=== PATIENT | male | born 1945 ===

== ENCOUNTER → 2019-02-03 | Outpatient (CLI) | payer OTHER ==
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
== END | disposition home or self-care (01) ==
LOC: RADCTMAIN 11:41
PROVIDERS: ATTEND Psychiatry & Neurology Vascular Neurology
DX: M50.321 Other cervical disc degeneration at C4-C5 level (principal); M46.92 Unspecified inflammatory spondylopathy, cervical region; M48.02 Spinal stenosis, cervical region; M51.26 Other intervertebral disc displacement, lumbar region; M48.061 Spinal stenosis, lumbar region without neurogenic claudication; M43.16 Spondylolisthesis, lumbar region
CPT/HCPCS: 70551; 72125; 72131

== ENCOUNTER 2019-03-22 15:01 | Emergency (ER) | payer OTHER ==
[2019-03-22] MEDS ORDERED: MECLIZINE 12.5 MG TAB PO STA (15:47)
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
[2019-03-22 16:17] LABS: Basophils % (A) 0 %; Eosinophils # (A) 0.2 k/uL (0-0.7); Eosinophils % (A) 2 %; HCT 45.8 % (39.0-53.0); HGB 14.5 gm/dL (13.0-17.5); Lymphocytes # (A) 1.4 k/uL (1.0-4.8); Lymphocytes % (A) 20 %; MCH 27.2 pg (25.0-35.0); MCHC 31.6 g/dL (31.0-37.0); MCV 86.2 fL (80.0-100.0); Mean Platelet Volume 8.2; Monocytes # (A) 0.5 k/uL (0-1.0); Monocytes % (A) 7 %; Neutrophils # (A) 4.8 k/uL (1.3-7.7); Neutrophils % (A) 68 %; Platelet Count 207 k/uL (150-450); RBC 5.31 m/uL (4.30-5.90); RDW 14.3 % (11.5-15.5); WBC 7.1 k/uL (3.8-10.6)
[2019-03-22 16:33] LABS: Albumin 4.1 g/dL (3.5-5.0); Calcium 9.6 mg/dL (8.4-10.2); INR 0.9 (<1.2); Partial Thromboplastin Time 24.8 sec (22.0-30.0); Potassium 4.4 mmol/L (3.5-5.1); Prothrombin Time 10.1 sec (9.0-12.0); Total Bilirubin 0.6 mg/dL (0.2-1.3); Total Protein 6.6 g/dL (6.3-8.2)
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
--- NOTE | 2019-03-22 19:12 | XR ---
EXAMINATION TYPE: XR chest 2V DATE OF EXAM: 03/22/2019 COMPARISON: NONE HISTORY: Altered mental status TECHNIQUE: Frontal and lateral views of the chest are obtained. FINDINGS: There is no focal air space opacity, pleural effusion, or pneumothorax seen. The cardiac silhouette size is within normal limits. The osseous structures are intact. IMPRESSION: No acute cardiopulmonary process.
[2019-03-22 19:15] VITALS: PULSE 70; TEMP 98.3
[2019-03-22 20:25] VITALS: BP 149/80; RESP 16
== END 2019-03-22 20:28 | disposition home or self-care (01) ==
LOC: EC 15:01
DX: R42 Dizziness and giddiness (principal); R41.840 Attention and concentration deficit; E11.9 Type 2 diabetes mellitus without complications; Z79.84 Long term (current) use of oral hypoglycemic drugs
CPT/HCPCS: 36415; 70450; 71046; 80053; 84484; 85025; 85610; 85730; 93005; 99285

== ENCOUNTER → 2019-07-09 | Outpatient (CLI) | payer OTHER ==
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
== END | disposition home or self-care (01) ==
LOC: RADMRIMAIN 16:03
PROVIDERS: ATTEND Orthopaedic Surgery Orthopaedic Surgery of the Spine
DX: M48.02 Spinal stenosis, cervical region (principal); M50.21 Other cervical disc displacement, high cervical region; M43.13 Spondylolisthesis, cervicothoracic region; M47.812 Spondylosis without myelopathy or radiculopathy, cervical region; M46.92 Unspecified inflammatory spondylopathy, cervical region; M48.061 Spinal stenosis, lumbar region without neurogenic claudication; M48.07 Spinal stenosis, lumbosacral region; M51.26 Other intervertebral disc displacement, lumbar region; M51.27 Other intervertebral disc displacement, lumbosacral region; M46.96 Unspecified inflammatory spondylopathy, lumbar region; Z98.890 Other specified postprocedural states
CPT/HCPCS: 72141; 72148

== ENCOUNTER → 2019-11-06 | Outpatient (CLI) | payer OTHER ==
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
== END | disposition home or self-care (01) ==
LOC: RADCTMAIN 12:43
PROVIDERS: ATTEND Psychiatry & Neurology Vascular Neurology
DX: S13.4XXA Sprain of ligaments of cervical spine, initial encounter (principal); M50.30 Other cervical disc degeneration, unspecified cervical region; G44.311 Acute post-traumatic headache, intractable; V89.2XXA Person injured in unspecified motor-vehicle accident, traffic, initial encounter; Z98.890 Other specified postprocedural states
CPT/HCPCS: 72125

== ENCOUNTER 2019-12-04 03:21 | Emergency (ER) | payer OTHER ==
[2019-12-04] MEDS ORDERED: SODIUM CHLORIDE 0.9% 1,000 ML IV STA (03:26)
[2019-12-04 03:38] LABS: Glucose,Whole Blood 198 mg/dL (75-99)
--- NOTE | 2019-12-04 03:39 | ED ---
Neuro HPI - General Stated Complaint: Poss Stroke Time Seen by Provider: 12/04/19 03:26 Source: patient, family Mode of arrival: wheelchair Limitations: altered mental status, physical limitation - History of Present Illness Is the patient presenting with stroke symptoms?: Yes Last Known Well Date: 12/04/19 Last Known Well Time: 00:30 Onset/Timin -: hour(s) Initial Comments: Rick is a 74-year-old male with a history of hypertension diabetes and history of a traumatic brain injury who presents to the ER today for evaluation of possible acute stroke. reports that he had a traumatic brain injury last year and was told that he may of had an occipital stroke which resulted in vertigo and some coordination issues however he underwent physical therapy and is doing quite well. reports that she began to fall asleep around 12:30 and he was in his usual state of health but was unable to sleep. She woke up because he was fidgety around 2:30 in the morning and asked him if he would like a warm glass of milk however when he attempted to respond his speech made no sense and was very slurred. reports she then woke up turn the lights on and noticed that the right side of his face seemed to be droopy and his speech was very altered at which time she decided to bring him to the emergency department for further evaluation. - Related Data Home Medications: Home Medications Medication Instructions Recorded Confirmed Ascorbic Acid [Vitamin C] 500 mg PO DAILY 03/22/19 03/22/19 Cholecalciferol [Vitamin D3 (25 1,000 unit PO DAILY 03/22/19 03/22/19 Mcg = 1000 Iu)] Lysine 500 mg PO DAILY 03/22/19 03/22/19 Multivitamins, Thera [Multivitamin 1 tab PO DAILY 03/22/19 03/22/19 (formulary)] Oil Of Oregano 1 tab PO DAILY 03/22/19 03/22/19 [place] Extract 1 tab PO DAILY 03/22/19 03/22/19 [place] 3-6-9 1 cap PO DAILY 03/22/19 03/22/19 [place] 500 mg PO DAILY 03/22/19 03/22/19 Vitamin A(Unkown) 1 cap PO DAILY 03/22/19 03/22/19 Vitamin B Complex 1 cap PO DAILY 03/22/19 03/22/19 Vitamin E(Unknown) 1 cap PO DAILY 03/22/19 03/22/19 glipiZIDE [Glucotrol] See Protocol PO AC-BID 03/22/19 03/22/19 Allergies/Adverse Reactions: Allergies Allergy/AdvReac Type Severity Reaction Status Date / Time No Known Allergies Allergy Verified 03/22/19 16:23 Review of Systems ROS Statement: Those systems with pertinent positive or pertinent negative responses have been documented in the HPI. ROS Other: All systems not noted in ROS Statement are negative. General Exam - General Exam Comments Initial Comments: Physical Exam GENERAL: Elderly male HENT: Normocephalic, Atraumatic. EYES: PERRL, EOMI PULMONARY: Unlabored respirations. CARDIOVASCULAR: RRR ABDOMEN: Soft and nontender with normal bowel sounds. SKIN: Skin is clear with no lesions or rashes and otherwise unremarkable. : Deferred NEUROLOGIC: Awake, alert, able to state name Right sided facial droop Slurred speech, possible aphasia no receptive aphasia as the patient is able to understand commands MUSCULOSKELETAL: Right lower extremity weakness PSYCHIATRIC: Appropriate situational anxiety Limitations: altered mental status, physical limitation Stroke MDM - Lab Data Result diagrams: 12/04/19 03:40 12/04/19 03:40 Lab Results 12/04/19 12/04/19 12/04/19 Range/Units 03:36 03:40 03:40 WBC 5.7 (3.8-10.6) k/uL RBC 5.09 (4.30-5.90) m/uL Hgb 13.9 (13.0-17.5) gm/dL Hct 43.2 (39.0-53.0) % MCV 84.8 (80.0-100.0) fL MCH 27.4 (25.0-35.0) pg MCHC 32.3 (31.0-37.0) g/dL RDW 13.4 (11.5-15.5) % Plt Count 156 (150-450) k/uL Neutrophils % 60 % Lymphocytes % 24 % Monocytes % 7 % Eosinophils % 4 % Basophils % 1 % Neutrophils # 3.4 (1.3-7.7) k/uL Lymphocytes # 1.4 (1.0-4.8) k/uL Monocytes # 0.4 (0-1.0) k/uL Eosinophils # 0.2 (0-0.7) k/uL Basophils # 0.1 (0-0.2) k/uL PT (9.0-12.0) sec INR (<1.2) APTT (22.0-30.0) sec Sodium 137 (137-145) mmol/L Potassium 3.7 (3.5-5.1) mmol/L Chloride 102 (98-107) mmol/L Carbon Dioxide 26 (22-30) mmol/L Anion Gap 9 mmol/L BUN 24 H (9-20) mg/dL Creatinine 0.89 (0.66-1.25) mg/dL Est GFR (CKD-EPI)AfAm >90 (>60 ml/min/1.73 sqM) Est GFR (CKD-EPI)NonAf 84 (>60 ml/min/1.73 sqM) Glucose 204 H (74-99) mg/dL POC Glucose (mg/dL) 198 H (75-99) mg/dL POC Glu [employer] Layla Delgado Calcium 8.9 (8.4-10.2) mg/dL Total Bilirubin 0.6 (0.2-1.3) mg/dL AST 21 (17-59) U/L ALT 14 (4-49) U/L Alkaline Phosphatase 132 H (38-126) U/L Troponin I (0.000-0.034) ng/mL Total Protein 6.4 (6.3-8.2) g/dL Albumin 3.8 (3.5-5.0) g/dL 12/04/19 12/04/19 Range/Units 03:40 03:40 WBC (3.8-10.6) k/uL RBC (4.30-5.90) m/uL Hgb (13.0-17.5) gm/dL Hct (39.0-53.0) % MCV (80.0-100.0) fL MCH (25.0-35.0) pg MCHC (31.0-37.0) g/dL RDW (11.5-15.5) % Plt Count (150-450) k/uL Neutrophils % % Lymphocytes % % Monocytes % % Eosinophils % % Basophils % % Neutrophils # (1.3-7.7) k/uL Lymphocytes # (1.0-4.8) k/uL Monocytes # (0-1.0) k/uL Eosinophils # (0-0.7) k/uL Basophils # (0-0.2) k/uL PT 10.0 (9.0-12.0) sec INR 1.0 (<1.2) APTT 24.4 (22.0-30.0) sec Sodium (137-145) mmol/L Potassium (3.5-5.1) mmol/L Chloride (98-107) mmol/L Carbon Dioxide (22-30) mmol/L Anion Gap mmol/L BUN (9-20) mg/dL Creatinine (0.66-1.25) mg/dL Est GFR (CKD-EPI)AfAm (>60 ml/min/1.73 sqM) Est GFR (CKD-EPI)NonAf (>60 ml/min/1.73 sqM) Glucose (74-99) mg/dL POC Glucose (mg/dL) (75-99) mg/dL POC Glu [employer] ID Calcium (8.4-10.2) mg/dL Total Bilirubin (0.2-1.3) mg/dL AST (17-59) U/L ALT (4-49) U/L Alkaline Phosphatase (38-126) U/L Troponin I <0.012 (0.000-0.034) ng/mL Total Protein (6.3-8.2) g/dL Albumin (3.5-5.0) g/dL - NIH Stroke Scale 1a. Level of Consciousness: (0) alert 1b. LOC Questions: (0) answers correctly 1c. LOC Commands: (0) performs tasks correctly 2. Best Gaze: (0) normal 3. Visual: (0) no visual loss 4. Facial Palsy: (1) minor paralysis 5a. Motor Arm Left: (0) no drift 5b. Motor Arm Right: (0) no drift 6a. Motor Leg Left: (0) no drift 6b. Motor Leg Right: (1) drift 7. Limb Ataxia: (0) absent 8. Sensory: (0) normal 9. Best Language: (2) severe aphasia 10. Dysarthria: (1) mild/moderate dysarthria 11. Extinction/Inattention: (0) no abnormality - Thrombolytic Inclusion/Exclusion Thrombolytic Exclusion Criteria: Onset of Symptoms Unknown Thrombolytic Contraindications: Hx of ICH/AVM/Aneurysms - Medical Decision Making The patient was seen and evaluated immediately upon arrival to the emergency department, he was evaluated in triage there is concern for an acute stroke and he is immediately taken to the resuscitation bay where he was evaluated by a physician. Code stroke was activated he was taken to computed tomography scan. Patient's initial NIH score is 5 for expressive aphasia, dysarthria, right-sided facial droop and right leg weakness The brain was evaluated in real time and was concerning for a small left-sided intracranial hemorrhage, this was reviewed with Dr. Carrion as the neuro interventional list who agrees there is a small hemorrhage, goal is blood pressure management with a systolic less than 160 ideally less than 140. Elevation of the head of bed. Repeat head CT in 6 hours and transfer to a facility with neurosurgical capabilities. This plan was discussed with the patient and at bedside who are agreeable to transfer. Patient care was discussed with Dr. Farfan at [facility] who accepts the patient is a transfer to the ER with the plan for admission to the neuro ICU and evaluation by neurosurgery and continued evaluation by neurology. Patient was noted to be profoundly hypertensive with a blood pressure of 2 22/110, push dose labetalol was ordered in the emergency department and a nicardipine drip was ordered from the pharmacy - EKG Data -: EKG Interpreted by Nh EKG shows normal: sinus rhythm Rate: normal EKG was obtained due to complaint of an acute stroke, EKG was obtained at 3:56 AM, rate is 68 rhythm is sinus there is prolonged SD at 256 consistent with first-degree AV block, QRS 92 QTc [address] elevations or depressions no evidence of acute ischemia or infarction or arrhythmia. 12/04/19 04:05 Past Medical History Past Medical History: Diabetes Mellitus, Hyperlipidemia, Hypertension Additional Past Medical History / Comment(s): back surgery History of Any Multi-Drug Resistant Organisms: None Reported Additional Past Surgical History / Comment(s): back, shoulder Past Psychological History: No Psychological Hx Reported Smoking Status: Never smoker Past Alcohol Use History: None Reported Past Drug Use History: Marijuana Course Vital Signs 12/04/19 12/04/19 12/04/19 03:30 03:46 03:53 Temperature 98.1 F Pulse Rate 75 78 70 Respiratory 18 18 20 Rate Blood Pressure 222/104 222/117 197/94 O2 Sat by Pulse 96 97 97 Oximetry 12/04/19 12/04/19 12/04/19 04:00 04:09 04:18 Temperature Pulse Rate 71 70 67 Respiratory 18 18 20 Rate Blood Pressure 187/88 195/91 199/87 O2 Sat by Pulse 97 100 998 H Oximetry 12/04/19 04:29 Temperature Pulse Rate 81 Respiratory 18 Rate Blood Pressure 138/92 O2 Sat by Pulse 98 Oximetry Critical Care Time Critical Care Time: Yes Total Critical Care Time: 45 Critical Care Time: Critical Care Time Critical care time was exclusive of separately billable procedures and treating other patients and teaching time. Critical care was necessary to treat or prevent imminent or life-threatening deterioration. Given the critical condition in which the patient arrived, the patient was immediately assessed by myself and the nurse, and cardiac monitoring initiated due to the potential for rapid decompensation of the patient's clinical co ndition. During the course of the patients stay, I spent a considerable amount of time at the bedside performing serial re-evaluations of the patient's hemodynamic and clinical status because of the recognized potential threat to life or limb in this condition. I then had a chance to review not only all of the available current laboratory and radiographic studies obtained today, but I also reviewed old records available to me at the time. Additionally, any ancillary information available including student finance advisor records were reviewed. Sequential vital signs were obtained. This patient specifically critical care time was obtained active eating stroke reviewing imaging, managing blood pressure discussing care with neuro interventional is as well as transfer team. Disposition Clinical Impression: Nontraumatic thalamic hemorrhage Disposition: OTHER INSTITUTION NOT DEFINED Condition: Serious Is patient prescribed a controlled substance at d/c from ED?: No Referrals: Nonstaff,Physician [Primary Care Provider] - 1-2 days - Out of Hospital Transfer - Req. Specs Out of Hospital Transfer - Requested Specifics: Other Emergency Center ([facility])
--- NOTE | 2019-12-04 03:44 | CT ---
EXAMINATION TYPE: CT brain wo con for TPA DATE OF EXAM: 12/04/2019 COMPARISON: 03/22/2019 HISTORY: stroke CT DLP: 1129.4 mGycm Automated exposure control for dose reduction was used. Exam performed with no contrast. There is cerebral cortical atrophy. There is no mass effect nor midline shift. There is some high att enuation in the left thalamus that measures 2 x 1 cm. This is consistent with acute hemorrhage. Ventricles have normal size. Calvarium is intact. IMPRESSION: There is evidence of a small acute left thalamic hemorrhage probably related to acute hemorrhagic inf arct. This appears new compared to old exam. Mild cerebral atrophy.
[2019-12-04 03:45] VITALS: TEMP 98.1
[2019-12-04] MEDS ORDERED: METOPROLOL TARTRATE 5 MG/5 ML VIAL IVP SCH (03:45)
[2019-12-04] MEDS: LABETALOL 5 MG/ML VIAL MDV IVP SCH ×2 (03:50→04:24)
--- NOTE | 2019-12-04 03:54 | XR ---
EXAMINATION TYPE: XR chest 1V DATE OF EXAM: 12/04/2019 COMPARISON: 03/22/2019 HISTORY: Altered mental status TECHNIQUE: Single view FINDINGS: There is no heart failure nor confluent pneumonic infiltrate. Costophrenic angles are clear . Bony thorax is intact. IMPRESSION: No active cardiopulmonary disease. Inspiration decreased slightly compared to old exam.
--- NOTE | 2019-12-04 03:59 | CT ---
EXAMINATION TYPE: CT angio head neck DATE OF EXAM: 12/04/2019 COMPARISON: None HISTORY: stroke CT DLP: 541 mGycm Automated exposure control for dose reduction was used. CONTRAST: Performed with IV Contrast, patient injected with 65 mL of Isovue 370. There are 3-D post processed images. Multiple axial sections were obtained from the aortic arch to the vertex of the brain with intravenou s contrast. There are 3-D post processed images. FINDINGS: There is normal branching pattern of the great vessels on the aortic arch. There is bilateral arteria l flow in the subclavian arteries. There is arterial flow in the common internal and external carotid arteries bilaterally. There is minimal plaque formation at the carotid artery bifurcations. There is stenosis of approximately 50% at the origin of the left internal carotid artery. There is no signifi cant stenosis at the origin right internal carotid artery. There is bilateral arterial flow in the ve rtebral arteries. There is no evidence of carotid artery aneurysm or dissection. There is normal contrast opacification of the venous sinuses. There is arterial flow in the anterior middle and posterior cerebral arteries. There is no mass effect. There is no evidence of hemodynamic stenosis. There is no evidence of intracranial aneurysm or neovascularity. There is 2 x 1 cm high att enuation area left thalamus consistent with acute hemorrhage. There is arterial flow in the vertebrob asilar artery system. IMPRESSION: There is approximate 50% stenosis at the origin left internal carotid artery. No intracranial angiographic abnormality. High attenuation area in the left thalamus consistent with acute hemorrhage described on the brain CT report.
[2019-12-04] MEDS ORDERED: niCARdipine 20 MG in SODIUM CHLORIDE 0.9% 192 ML IV SCH (04:00)
[2019-12-04 04:08] LABS: Basophils # (A) 0.1 k/uL (0-0.2); Basophils % (A) 1 %; Eosinophils # (A) 0.2 k/uL (0-0.7); Eosinophils % (A) 4 %; HCT 43.2 % (39.0-53.0); HGB 13.9 gm/dL (13.0-17.5); Lymphocytes # (A) 1.4 k/uL (1.0-4.8); Lymphocytes % (A) 24 %; MCH 27.4 pg (25.0-35.0); MCHC 32.3 g/dL (31.0-37.0); MCV 84.8 fL (80.0-100.0); Mean Platelet Volume 8.5; Monocytes # (A) 0.4 k/uL (0-1.0); Monocytes % (A) 7 %; Neutrophils # (A) 3.4 k/uL (1.3-7.7); Neutrophils % (A) 60 %; Platelet Count 156 k/uL (150-450); RBC 5.09 m/uL (4.30-5.90); RDW 13.4 % (11.5-15.5); WBC 5.7 k/uL (3.8-10.6)
[2019-12-04 04:12] LABS: ALT 14 U/L (4-49); AST 21 U/L (17-59); African American GFR (CKD) >90 (>60 ml/min/1.73 sqM); Albumin 3.8 g/dL (3.5-5.0); Alkaline Phosphatase 132 U/L (38-126); Anion Gap 9 mmol/L; Blood Urea Nitrogen 24 mg/dL (9-20); Calcium 8.9 mg/dL (8.4-10.2); Carbon Dioxide 26 mmol/L (22-30); Chloride 102 mmol/L (98-107); Glucose 204 mg/dL (74-99); Non-African American GFR(CKD) 84 (>60 ml/min/1.73 sqM); Potassium 3.7 mmol/L (3.5-5.1); Sodium 137 mmol/L (137-145); Total Bilirubin 0.6 mg/dL (0.2-1.3); Total Protein 6.4 g/dL (6.3-8.2)
[2019-12-04 04:14] LABS: Partial Thromboplastin Time 24.4 sec (22.0-30.0)
[2019-12-04 04:30] VITALS: BP 138/92; PULSE 81; RESP 18
== END 2019-12-04 04:31 | disposition short-term general hospital (02) ==
LOC: EC 03:21
DX: I61.8 Other nontraumatic intracerebral hemorrhage (principal); R47.01 Aphasia; R29.810 Facial weakness; G83.11 Monoplegia of lower limb affecting right dominant side; I10 Essential (primary) hypertension; R29.705 NIHSS score 5; F41.8 Other specified anxiety disorders; E11.9 Type 2 diabetes mellitus without complications; Z79.84 Long term (current) use of oral hypoglycemic drugs; Z79.899 Other long term (current) drug therapy; Z87.820 Personal history of traumatic brain injury
CPT/HCPCS: 36415; 70450; 70496; 70498; 71045; 80053; 84484; 85025; 85610; 85730; 93005; 96365; 96375; 96376; 99291

== ENCOUNTER 2021-07-30 10:46 | Inpatient (IN) | payer OTHER, MEDICARE ==
[2021-07-30 20:51] LABS: Glucose,Whole Blood 268 mg/dL (75-99)
[2021-07-30] MEDS ORDERED: HYDROcodone/APAP 5-325MG 1 EACH TAB PO PRN (21:09)
[2021-07-30] MEDS ORDERED: ALPRAZolam 0.25 MG TAB PO PRN (21:09)
[2021-07-30] MEDS: SODIUM CHLORIDE 0.9% 1,000 ML IV SCH (21:49)
[2021-07-30] MEDS ORDERED: MD COMMUNICATION TO PHARMACY 1 EACH MISC PO PRN (22:09)
[2021-07-30 22:31] LABS: ALT 28 U/L (4-49); AST 57 U/L (17-59); African American GFR (CKD) >90 (>60 ml/min/1.73 sqM); Albumin 3.1 g/dL (3.5-5.0); Alkaline Phosphatase 172 U/L (38-126); Anion Gap 10 mmol/L; Blood Urea Nitrogen 35 mg/dL (9-20); C Reactive Protein 6.1 mg/dL (<1.0); Calcium 8.5 mg/dL (8.4-10.2); Carbon Dioxide 19 mmol/L (22-30); Chloride 112 mmol/L (98-107); Glucose 280 mg/dL (74-99); Non-African American GFR(CKD) >90 (>60 ml/min/1.73 sqM); Potassium 4.5 mmol/L (3.5-5.1); Sodium 141 mmol/L (137-145); Total Bilirubin 1.2 mg/dL (0.2-1.3); Total Protein 6.4 g/dL (6.3-8.2)
[2021-07-30 22:36] LABS: Basophils # (A) 0.1 k/uL (0-0.2); Basophils % (A) 1 %; Eosinophils % (A) 0 %; HCT 50.2 % (39.0-53.0); HGB 16.2 gm/dL (13.0-17.5); Lymphocytes # (A) 0.4 k/uL (1.0-4.8); Lymphocytes % (A) 4 %; MCH 28.7 pg (25.0-35.0); MCHC 32.2 g/dL (31.0-37.0); Mean Platelet Volume 9.1; Monocytes # (A) 0.3 k/uL (0-1.0); Monocytes % (A) 3 %; Neutrophils % (A) 90 %; Platelet Count 298 k/uL (150-450); RBC 5.63 m/uL (4.30-5.90); RDW 13.8 % (11.5-15.5)
[2021-07-30] MEDS ORDERED: RX INFO: IV CONTRAST WAS GIVEN 1 EACH MISC MISCELLANE PRN (22:58)
--- NOTE | 2021-07-31 00:10 | CT ---
EXAMINATION TYPE: CT chest angio for PE DATE OF EXAM: 07/30/2021 COMPARISON: None HISTORY: elevated d-dimer CT DLP: 329 mGycm Automated exposure control for dose reduction was used. CONTRAST: Performed with IV Contrast, patient injected with 80 mL of Isovue 370. There are 3-D post processed images. There are extensive bilateral interstitial and airspace infiltrates in both lungs. Heart is enlarged. There is no mediastinal adenopathy. There are no hilar masses. There is no evidence of filling defec t in the pulmonary arteries. Thoracic aorta is intact. There is no aneurysm or dissection. Thoracic spine is intact. There is no compression fracture. Sternum is intact. IMPRESSION: No evidence of pulmonary embolism. Extensive pulmonary infiltrates consistent with RDS. Congestive heart failure not excluded.
[2021-07-31] MEDS: METOPROLOL TARTRATE 25 MG TAB PO SCH ×4 (01:00→20:22)
[2021-07-31] MEDS: INSULIN ASPART (NovoLOG) 100 UNIT/ML VIAL SQ SCH ×3 (06:02→19:06)
[2021-07-31 06:34] LABS: Glucose,Whole Blood 233 mg/dL (75-99)
--- NOTE | 2021-07-31 07:35 | XR ---
EXAMINATION TYPE: XR chest 1V portable DATE OF EXAM: 07/31/2021 COMPARISON: 12/04/2019 INDICATION: Atypical pneumonia TECHNIQUE: Single frontal view of the chest is obtained. FINDINGS: The heart size is upper limits for normal. The pulmonary vasculature is normal. Diffuse bilateral lung infiltrates are present. Air bronchograms are present in the left. Findings ar e nonspecific but can be compatible with atypical pneumonia. IMPRESSION: 1. Diffuse bilateral lung infiltrates. Correlate for atypical pneumonia.
[2021-07-31] MEDS: CLOPIDOGREL 75 MG TAB PO SCH ×2 (07:40→09:50)
[2021-07-31] MEDS: CHOLECALCIFEROL 10 MCG (400 IU) TABLET PO SCH ×2 (07:40→09:49)
[2021-07-31] MEDS: ASCORBIC ACID 500 MG TAB PO SCH ×2 (07:40→09:49)
[2021-07-31] MEDS: FAMOTIDINE 20 MG TAB PO SCH ×2 (07:40→09:50)
[2021-07-31] MEDS: ZINC SULFATE 220 MG CAP PO SCH ×2 (07:40→09:50)
[2021-07-31] MEDS: SODIUM CHLORIDE 0.9% 1,000 ML IV SCH (07:45)
[2021-07-31 08:31] LABS: ALT 28 U/L (4-49); African American GFR (CKD) >90 (>60 ml/min/1.73 sqM); Anion Gap 14 mmol/L; Blood Urea Nitrogen 35 mg/dL (9-20); Calcium 8.9 mg/dL (8.4-10.2); Carbon Dioxide 14 mmol/L (22-30); Chloride 116 mmol/L (98-107); Glucose 262 mg/dL (74-99); Non-African American GFR(CKD) >90 (>60 ml/min/1.73 sqM); Sodium 144 mmol/L (137-145); Total Bilirubin 1.5 mg/dL (0.2-1.3); Total Protein 6.4 g/dL (6.3-8.2)
[2021-07-31 08:32] LABS: AST 65 U/L (17-59); Alkaline Phosphatase 176 U/L (38-126); Potassium 4.5 mmol/L (3.5-5.1)
[2021-07-31 08:55] LABS: Basophils # (A) 0.1 k/uL (0-0.2); Basophils % (A) 0 %; Eosinophils % (A) 0 %; HCT 52.3 % (39.0-53.0); HGB 16.6 gm/dL (13.0-17.5); Lymphocytes # (A) 0.5 k/uL (1.0-4.8); Lymphocytes % (A) 3 %; MCH 28.5 pg (25.0-35.0); MCHC 31.7 g/dL (31.0-37.0); MCV 89.9 fL (80.0-100.0); Mean Platelet Volume 8.8; Monocytes # (A) 0.3 k/uL (0-1.0); Monocytes % (A) 2 %; Neutrophils # (A) 15.2 k/uL (1.3-7.7); Neutrophils % (A) 94 %; Platelet Count 208 k/uL (150-450); RBC 5.82 m/uL (4.30-5.90); RDW 13.8 % (11.5-15.5); WBC 16.1 k/uL (3.8-10.6)
[2021-07-31] MEDS ORDERED: ENOXAPARIN 60 MG/0.6 ML SYRINGE SQ SCH (09:00)
[2021-07-31] MEDS: DILTIAZEM 125 MG in SODIUM CHLORIDE 0.9% 100 ML IV SCH (09:38)
--- NOTE | 2021-07-31 10:04 | P.HPIM ---
History of Present Illness Patient is a 75 pleasant male was transferred from a outside hospital for atrial fibrillation with rapid ventricular rate. Patient is presently on therapeutic dose of Lovenox. Also has highly elevated INR. His baseline creatinine is unknown but his present creatinine is around the 0.66, patient is receiving half-normal saline at 75 mL per hour patient is also on Remdesivir, presently on 15 L of oxygen, CT of the chest did not show any pulmonary embolism but did show diffuse infiltrate patient was having symptoms for about 4 days patient was unable to provide much of history to me patient is too tired week. Patient is not tolerating any by mouth medications at this time because of which patient was started on IV Cardizem patient usually takes metoprolol 25 twice a day. Patient doesn't have any history of congestive heart failure. Patient was started on Decadron as well. Patient has highly elevated d-dimer. REVIEW OF SYSTEMS: Unable to obtain much of review of systems because of his clinical condition rest of the review of systems are negative except those mentioned above in HPI. PHYSICAL EXAMINATION: GENERAL: The patient is alert and oriented x3, not in any acute distress. Well developed, well nourished. HEENT: Pupils are round and equally reacting to light. EOMI. No scleral icterus. No conjunctival pallor. Normocephalic, atraumatic. No pharyngeal erythema. No thyromegaly. CARDIOVASCULAR: S1 and S2 present. No murmurs, rubs, or gallops. Tachycardic irregularly irregular rhythm PULMONARY: Diffuse bilateral crackles ABDOMEN: Soft, nontender, nondistended, normoactive bowel sounds. No palpable organomegaly. MUSCULOSKELETAL: No joint swelling or deformity. EXTREMITIES: No cyanosis, clubbing, or pedal edema. NEUROLOGICAL: Gross neurological examination did not reveal any focal deficits. SKIN: No rashes. Assessment and plan -Covid 19 pneumonia: Patient will be continued on Remdesivir, IV steroids and the sliding scale insulin patient will also be started on Lantus patient is unable to tolerate anything by mouth will closely monitor the blood sugars continue zinc multivitamin and Pepcid -Atrial fibrillation with rapid unclear rate new onset continue with Lovenox, continue with Cardizem if he can tolerate patient will be given Lopressor as well. Cardiology will evaluate the patient -Type 2 diabetes mellitus blood sugars are elevated uncontrolled and expected to be uncontrolled because of systemic steroids -Hyperlipidemia -Hypertension For above-mentioned chronic medical problems patient will be resumed on appropriate home medications DVT prophylaxis: Lovenox as mentioned above Past Medical History Past Medical History: Diabetes Mellitus, Hyperlipidemia, Hypertension Additional Past Medical History / Comment(s): back surgery History of Any Multi-Drug Resistant Organisms: None Reported Additional Past Surgical History / Comment(s): back, shoulder Past Psychological History: No Psychological Hx Reported Smoking Status: Never smoker Past Alcohol Use History: None Reported Past Drug Use History: Marijuana - Past Family History Father History Unknown: Yes Medications and Allergies Home Medications Medication Instructions Recorded Confirmed Type Azithromycin [Zithromax] See Taper PO DAILY 07/30/21 07/30/21 History Cbd Sublingual Tabs (Unknown 1 dose SL Q4-6H PRN 07/30/21 07/30/21 History Strength) Clopidogrel Bisulfate [Plavix] 75 mg PO DAILY 07/30/21 07/30/21 History Zinc 50 mg PO DAILY 07/30/21 07/30/21 History amLODIPine [Norvasc] 10 mg PO DAILY 07/30/21 07/30/21 History glipiZIDE [Glucotrol] 10 mg PO BID 07/30/21 07/30/21 History lisinopriL 20 mg PO BID 07/30/21 07/30/21 History Allergies Allergy/AdvReac Type Severity Reaction Status Date / Time corn Allergy Unknown Verified 07/30/21 21:18 peanut Allergy Unknown Verified 07/30/21 21:18 Physical Exam Vitals: Vital Signs Temp Pulse Resp BP Pulse Ox 07/31/21 09:45 26 H 95 07/31/21 08:35 97.9 F 114 H 34 H 149/72 86 L 07/31/21 08:29 86 L 07/31/21 07:48 93 L 07/31/21 04:07 98.6 F 118 H 28 H 149/76 90 L 07/30/21 23:46 73 28 H 123/58 94 L 07/30/21 20:05 97.9 F 98 28 H 140/93 95 Intake and Output 07/30/21 07/31/21 07/31/21 22:59 06:59 14:59 Intake Total 100 1170 Output Total 825 Balance 100 345 Intake: IV 20 FLUSH 20 Intake, IV Titration 1150 Amount Remdesivir 100 mg In 250 Sodium Chloride 0.9% 250 ml @ 250 mls/hr IVPB Q24H [facility] Rx#:[id number] Sodium Chloride 0.9% 1, 900 000 ml @ 75 mls/hr IV . [id number] [facility] Rx#:[id number] Oral 100 0 Output: Urine 825 Uretheral ([place]) 825 Other: Voiding Method Indwelling Catheter Indwelling Catheter Weight 46 kg 46 kg Results CBC & Chem 7: 07/31/21 07:54 07/31/21 07:54 Labs: Abnormal Lab Results - Last 24 Hours (Table) 07/30/21 07/30/21 07/30/21 Range/Units 19:57 21:40 21:40 WBC (3.8-10.6) k/uL Neutrophils # 9.0 H (1.3-7.7) k/uL Lymphocytes # 0.4 L (1.0-4.8) k/uL D-Dimer >34.10 H (<0.60) mg/L FEU Chloride (98-107) mmol/L Carbon Dioxide (22-30) mmol/L BUN (9-20) mg/dL Creatinine (0.66-1.25) mg/dL Glucose (74-99) mg/dL POC Glucose (mg/dL) 268 H (75-99) mg/dL Total Bilirubin (0.2-1.3) mg/dL AST (17-59) U/L Alkaline Phosphatase (38-126) U/L C-Reactive Protein (<1.0) mg/dL Albumin (3.5-5.0) g/dL 07/30/21 07/31/21 07/31/21 Range/Units 21:40 06:31 07:54 WBC 16.1 H (3.8-10.6) k/uL Neutrophils # 15.2 H (1.3-7.7) k/uL Lymphocytes # 0.5 L (1.0-4.8) k/uL D-Dimer (<0.60) mg/L FEU Chloride 112 H (98-107) mmol/L Carbon Dioxide 19 L (22-30) mmol/L BUN 35 H (9-20) mg/dL Creatinine 0.62 L (0.66-1.25) mg/dL Glucose 280 H (74-99) mg/dL POC Glucose (mg/dL) 233 H (75-99) mg/dL Total Bilirubin (0.2-1.3) mg/dL AST (17-59) U/L Alkaline Phosphatase 172 H (38-126) U/L C-Reactive Protein 6.1 H (<1.0) mg/dL Albumin 3.1 L (3.5-5.0) g/dL 07/31/21 Range/Units 07:54 WBC (3.8-10.6) k/uL Neutrophils # (1.3-7.7) k/uL Lymphocytes # (1.0-4.8) k/uL D-Dimer (<0.60) mg/L FEU Chloride 116 H (98-107) mmol/L Carbon Dioxide 14 L (22-30) mmol/L BUN 35 H (9-20) mg/dL Creatinine (0.66-1.25) mg/dL Glucose 262 H (74-99) mg/dL POC Glucose (mg/dL) (75-99) mg/dL Total Bilirubin 1.5 H (0.2-1.3) mg/dL AST 65 H (17-59) U/L Alkaline Phosphatase 176 H (38-126) U/L C-Reactive Protein (<1.0) mg/dL Albumin 3.0 L (3.5-5.0) g/dL
[2021-07-31 10:25] LABS: Ferritin 1402.8 ng/mL (22.0-322.0)
[2021-07-31] MEDS: SODIUM CHLORIDE 0.45% 1,000 ML IV SCH ×2 (11:00→21:11)
[2021-07-31] MEDS: DEXAMETHASONE SOD PHOSPHATE 10 MG/ML 1 ML VIAL IV SCH (11:01)
[2021-07-31 12:07] LABS: Glucose,Whole Blood 206 mg/dL (75-99)
[2021-07-31] MEDS ORDERED: SODIUM CHLORIDE 0.9% 1,000 ML IV ONE (12:14)
[2021-07-31] MEDS ORDERED: SODIUM BICARB 8.4% 50 ML SYR (1 MEQ/ML) IV STA (12:15)
--- NOTE | 2021-07-31 12:19 | P.CNPUL ---
History of Present Illness Consult date: 07/31/21 Reason for consult: pneumonia History of present illness: 75-year-old male patient, came in from [place] for: Attributed to monitor respiratory failure. He also was in new onset atrial fibrillation with rapid ventricular response. The patient is quite debilitated. He looks very tired and lethargic. He is unable to provide much history. He is at the point where he is unable to take any oral medications because of generalized weakness and debility. He is currently on 100% nonrebreather facemask in addition to 15 L about 2 by nasal cannula. His chest x-ray showed diffuse bilateral pulmonary infiltrates. CT angiogram also showed diffuse bilateral groundglass pulmonary infiltrates consistent with COVID-19 related pneumonia. There is no evidence of any pulmonary embolism. The patient is currently on Decadron. Note that his s ymptoms started approximately 4 days prior to him coming to the hospital. He is diabetic. He has hypertension and hyperlipidemia as comorbid conditions. I saw this patient this afternoon. The patient as stated was sleeping. Lethargic. Not much conversing. He does not seem to be in significant respiratory distress. Nevertheless very much oxygen dependent to maintain a saturation above 90%. His blood work has shown a white cell count of 16.1. Hemoglobin of 16.6. He has a lymphopenia with a lymphocyte count of 0.5. D-dimer is more than 34. He has a non-anion gap metabolic acidosis. The gap was 14 with a serum bicarb level of 14. His creatinine stable at 0.6. ALT is 28. AST is 65. Alkaline phosphatase is 176. Bilirubin level was 1.5. C-reactive protein was 6.1. His LDH has not been checked. The patient is also on a Cardizem drip at that H of 5 mg an hour. His current heart rate is 95, irregular. He has a Hogan catheter in place. IV fluids are running at half-normal saline at 75 mL an hour. The patient has a blood sugar of 206. Currently receiving a insulin sliding scale coverage and his Levemir insulin has been at 10 units an hour. Review of Systems ROS unobtainable: due to mental status Constitutional: Reports daytime sleepiness, Reports fatigue, Reports lethargy, Reports poor appetite, Reports weakness Eyes: denies as per HPI, denies blurred vision, denies bulging eye, denies decreased vision, denies diplopia, denies discharge, denies dry eye, denies irritation, denies itching, denies pain, denies photophobia, denies loss of peripheral vision, denies loss of vision, denies tunnel vision/blind spots Ears: deny: decreased hearing, ear discharge, earache, tinnitus Ears, nose, mouth and throat: Denies headache, Denies sore throat Breasts: absent: as per HPI, gynecomastia Cardiovascular: Reports decreased exercise tolerance, Reports dyspnea on exertion, Reports shortness of breath Respiratory: Reports cough, Reports dyspnea Gastrointestinal: Reports as per HPI Genitourinary: Reports as per HPI Musculoskeletal: Reports as per HPI Musculoskeletal: absent: ankle pain, ankle stiffness, ankle swelling Integumentary: Reports as per HPI Neurological: Reports as per HPI Psychiatric: Reports as per HPI Endocrine: Reports as per HPI, Reports fatigue Hematologic/Lymphatic: Reports as per HPI Allergic/Immunologic: Reports as per HPI Past Medical History Past Medical History: Diabetes Mellitus, Hyperlipidemia, Hypertension Additional Past Medical History / Comment(s): back surgery History of Any Multi-Drug Resistant Organisms: None Reported Additional Past Surgical History / Comment(s): back, shoulder Past Psychological History: No Psychological Hx Reported Smoking Status: Never smoker Past Alcohol Use History: None Reported Past Drug Use History: Marijuana - Past Family History Father History Unknown: Yes Medications and Allergies Home Medications Medication Instructions Recorded Confirmed Type Azithromycin [Zithromax] See Taper PO DAILY 07/30/21 07/30/21 History Cbd Sublingual Tabs (Unknown 1 dose SL Q4-6H PRN 07/30/21 07/30/21 History Strength) Clopidogrel Bisulfate [Plavix] 75 mg PO DAILY 07/30/21 07/30/21 History Zinc 50 mg PO DAILY 07/30/21 07/30/21 History amLODIPine [Norvasc] 10 mg PO DAILY 07/30/21 07/30/21 History glipiZIDE [Glucotrol] 10 mg PO BID 07/30/21 07/30/21 History lisinopriL 20 mg PO BID 07/30/21 07/30/21 History Allergies Allergy/AdvReac Type Severity Reaction Status Date / Time corn Allergy Unknown Verified 07/30/21 21:18 peanut Allergy Unknown Verified 07/30/21 21:18 Physical Exam Vitals: Vital Signs Temp Pulse Resp BP Pulse Ox 07/31/21 10:52 98.9 F 94 24 148/75 95 07/31/21 09:45 26 H 95 07/31/21 08:35 97.9 F 114 H 34 H 149/72 86 L 07/31/21 08:29 86 L 07/31/21 07:48 93 L 07/31/21 04:07 98.6 F 118 H 28 H 149/76 90 L 07/30/21 23:46 73 28 H 123/58 94 L 07/30/21 20:05 97.9 F 98 28 H 140/93 95 Intake and Output 07/30/21 07/31/21 07/31/21 22:59 06:59 14:59 Intake Total 100 1170 Output Total 825 Balance 100 345 Intake: IV 20 FLUSH 20 Intake, IV Titration 1150 Amount Remdesivir 100 mg In 250 Sodium Chloride 0.9% 250 ml @ 250 mls/hr IVPB Q24H [facility] Rx#:[id number] Sodium Chloride 0.9% 1, 900 000 ml @ 75 mls/hr IV . [id number] [facility] Rx#:[id number] Oral 100 0 Output: Urine 825 Uretheral (Hogan) 825 Other: Voiding Method Indwelling Catheter Indwelling Catheter Weight 46 kg 46 kg Results Lethargic, calm, comfortable, no agitation, sleepy, his breathing is not labored. At times, he gets restless according nursing staff. At time of my evaluation, he looked to be quiet comfortable. Head exam was generally normal. There was no scleral icterus or corneal arcus. Mucous membranes were moist. HEENT: Pupils are round and equally reacting to light. EOMI. No scleral icterus. No conjunctival pallor. Normocephalic, atraumatic. No pharyngeal erythema. No thyromegaly. CARDIOVASCULAR: S1 and S2 present. No murmurs, rubs, or gallops. Tachycardic irregularly irregular rhythm PULMONARY: Diffuse bilateral crackles ABDOMEN: Soft, nontender, nondistended, normoactive bowel sounds. No palpable organomegaly. MUSCULOSKELETAL: No joint swelling or deformity. EXTREMITIES: No cyanosis, clubbing, or pedal edema. NEUROLOGICAL: Gross neurological examination Normal. He is arousable, extremely lethargic, is not following any commands. He is moving all 4 extremities to deep painful stimulation. SKIN: No rashes. - Laboratory Findings CBC and BMP: 07/31/21 07:54 07/31/21 07:54 PT/INR, D-dimer D-Dimer >34.10 mg/L FEU (<0.60) H 07/30/21 21:40 Abnormal lab findings: Abnormal Labs 07/30/21 07/30/21 07/30/21 19:57 21:40 21:40 WBC Neutrophils # 9.0 H Lymphocytes # 0.4 L D-Dimer >34.10 H Chloride Carbon Dioxide BUN Creatinine Glucose POC Glucose (mg/dL) 268 H Ferritin Total Bilirubin AST Alkaline Phosphatase C-Reactive Protein Albumin 07/30/21 07/31/21 07/31/21 21:40 06:31 07:54 WBC 16.1 H Neutrophils # 15.2 H Lymphocytes # 0.5 L D-Dimer Chloride 112 H Carbon Dioxide 19 L BUN 35 H Creatinine 0.62 L Glucose 280 H POC Glucose (mg/dL) 233 H Ferritin 1402.8 H Total Bilirubin AST Alkaline Phosphatase 172 H C-Reactive Protein 6.1 H Albumin 3.1 L 07/31/21 07/31/21 07:54 12:05 WBC Neutrophils # Lymphocytes # D-Dimer Chloride 116 H Carbon Dioxide 14 L BUN 35 H Creatinine Glucose 262 H POC Glucose (mg/dL) 206 H Ferritin Total Bilirubin 1.5 H AST 65 H Alkaline Phosphatase 176 H C-Reactive Protein Albumin 3.0 L - Diagnostic Findings Chest x-ray: image reviewed CT scan - chest: image reviewed Assessment and Plan Plan: 1 COVID-19 related pneumonia with secondary hypoxic respiratory failure. Patient was found to be symptomatic approximately a week ago and his condition has progressed significantly and currently is on high flow oxygen at 15 L along with on a percent nonrebreather facemask 2 acute hypoxic respiratory failure secondary to above 3 altered mentation with diminished level of consciousness likely secondary to COVID-19 related encephalopathy. His neurologic exam is nonfocal 4 mild leukocytosis with a white cell count of 16.1 and lymphopenia 5 elevated inflammatory markers secondary to above 6 non-anion gap metabolic acidosis 7 diabetes mellitus 8 hypertension 9 hyperlipidemia 10 new onset atrial fibrillation with rapid ventricular response and the patient is currently on a Cardizem drip at 10 mg an hour Plan Transfer this patient to the ICU Give the patient liters of IV fluids as soon as possible Continue with half-normal saline at the rate of 150 mL an hour and give the patient a total of 150 mEq of sodium bicarb IV push regarding his non-anion gap metabolic acidosis check pro calcitonin level monitor inflammatory markers continue with Decadron Stop the Remdesivir Check lactic acid level If the pro calcitonin level is low, would proceed with Baricitinib regarding his COVID-19 related pneumonia Insulin sliding scale coverage in addition to Levemir insulin dose to be adjusted in the intensive care unit based on his blood sugar control put the patient IV heparin regarding his atrial fibrillation May ultimately transition this patient to Eliquis and a later stage obtain a baseline echocardiogram monitor oxygenation keep the patient 100% nonrebreather facemask addition to high flow oxygen May consider noncontrast CAT scan of the brain once more stable condition is critical and the patient will be transferred to the intensive care unit. Time with Patient: Greater than 30
--- NOTE | 2021-07-31 12:42 | ECHOF ---
Referral Reason:new onset afib MEASUREMENTS -------- HEIGHT: 165.1 cm WEIGHT: 45.8 kg BP: IVSd: 1.4 cm (0.6 - 1.1) LVIDd: 2.8 cm (3.9 - 5.3) LVPWd: 1.6 cm (0.6 - 1.1) IVSs: 1.8 cm LVIDs: 1.5 cm LVPWs: 2.0 cm LAESV Index (A-L): 17.62 ml/m Ao Diam: 3.5 cm (2.0 - 3.7) AV Cusp: 1.7 cm (1.5 - 2.6) LA Diam: 3.4 cm (2.7 - 3.8) MV EXCURSION: 21.171 mm (> 18.000) MV EF SLOPE: 69 mm/s (70 - 150) EPSS: 0.4 cm AR PHT: 715 ms RAP: 5.00 mmHg RVSP: 22.91 mmHg FINDINGS -------- This was a technically good study. The left ventricular size is normal. There is moderate concentric left ventricular hypertrophy. O verall left ventricular systolic function is normal with, an EF between 55 - 60 %. Left ventricular fillimg pressure cannot be estimated due to Atrial fibrillation. The right ventricle is normal in size. The left atrial size is normal. Normal LA size by volume 22+/-6 ml/m2. The right atrial size is normal. The aortic valve is trileaflet and appears structurally normal. There is mild aortic regurgitation. The mitral valve is normal. Mild mitral regurgitation is present. The tricuspid valve appears structurally normal. Mild tricuspid regurgitation present. Right vent ricular systolic pressure is normal at < 35 mmHg. There is no pulmonic regurgitation present. The aortic root size is normal. Normal inferior vena cava with normal inspiratory collapse consistent with estimated right atrial pre ssure of 5 mmHg. There is no pericardial effusion. CONCLUSIONS -------- 1. The left ventricular size is normal. 2. There is moderate concentric left ventricular hypertrophy. 3. Overall left ventricular systolic function is normal with, an EF between 55 - 60 %. 4. Left ventricular fillimg pressure cannot be estimated due to Atrial fibrillation. 5. There is mild aortic regurgitation. 6. Mild mitral regurgitation is present. 7. Mild tricuspid regurgitation present. 8. There is no pericardial effusion. [employer]UCK TRA[employer]ER FINAL INSPECTOR: Jacqueline Miller RDCS
[2021-07-31] MEDS: HEPARIN SOD,PORK IN 0.45% NACL 25,000 UNIT in 0.45% NACL 1 250ML.BAG IV SCH (12:45)
--- NOTE | 2021-07-31 12:57 | P.CRDCN ---
History of Present Illness History of present illness: HISTORY OF PRESENTING ILLNESS This is a pleasant 75-year-old male past medical history significant for hypertension, dyslipdiemia and diabetes mellitus. He has no history of documented heart disease. He is not communicating appropriately. Information is obtained from the nursing staff and medical record. We have been asked to see in consultation for new onset afib. He presented to the hospital and was diagnosed with COVID 19. On arrival to outside facility he was was found to be in atrial fibrillation. He continues to be in afib with variable ventricular rates. He is not taking oral medication currently due to altered mental status. Chest x-ray reveals diffuse bilateral lung infiltrates. CTA was negative for pulmonary embolism with extensive pulmonary infiltrates noted. Echocardiogram obtained reveals preserved LV systolic function with ejection fraction 55-60%, mild MR and mild TR noted. Endotracheal data reviewed, WBC 16.1, hemoglobin 16.6, platelets 208, sodium 144, potassium 4.5, creatinine 0.66, d-dimer greater than 34 and troponin negative 1. Current daily cardiac medications include Plavix 75 mg daily, lisinopril 20 mg BID, amlodipine 10 mg daily. REVIEW OF SYSTEMS At the time of my exam: Unable to obtain due to altered mental status PHYSICAL EXAMINATION Blood pressure 148/75 heart rate 94 afebrile and maintaining oxygen saturation on high flow oxygen. CONSTITUTIONAL: No apparent distress. HEENT: Head is normocephalic. Pupils are equal, round. Sclerae anicteric. Mucous membranes of the mouth are moist. No JVD. No carotid bruit. CHEST EXAMINATION: Diffuse course crackles, no wheezes. No chest wall tenderness is noted on palpation or with deep breathing. HEART EXAMINATION: Irregular rate and rhythm. S1, S2 heard. No murmurs, gallops or rub. ABDOMEN: Soft, nontender. EXTREMITIES: 2+ peripheral pulses, no lower extremity edema and no calf tenderness. NEUROLOGIC EXAMINATION: Obtunded. ASSESSMENT New onset paroxysmal atrial fibrillation COVID Altered mental status Leukocytosis Hypertension Dyslipidemia Diabetes mellitus PLAN Initiate cardizem infusion at 5 mg/hr as he is not taking PO medication. Continue lovenox for thromboembolic protection. Thank you kindly for this consultation. Nurse Practitioner note has been reviewed, I agree with a documented findings and plan of care. Patient was seen and examined. Past Medical History Past Medical History: Diabetes Mellitus, Hyperlipidemia, Hypertension Additional Past Medical History / Comment(s): back surgery History of Any Multi-Drug Resistant Organisms: None Reported Additional Past Surgical History / Comment(s): back, shoulder Past Psychological History: No Psychological Hx Reported Smoking Status: Never smoker Past Alcohol Use History: None Reported Past Drug Use History: Marijuana - Past Family History Father History Unknown: Yes Medications and Allergies Home Medications Medication Instructions Recorded Confirmed Type Azithromycin [Zithromax] See Taper PO DAILY 07/30/21 07/30/21 History Cbd Sublingual Tabs (Unknown 1 dose SL Q4-6H PRN 07/30/21 07/30/21 History Strength) Clopidogrel Bisulfate [Plavix] 75 mg PO DAILY 07/30/21 07/30/21 History Zinc 50 mg PO DAILY 07/30/21 07/30/21 History amLODIPine [Norvasc] 10 mg PO DAILY 07/30/21 07/30/21 History glipiZIDE [Glucotrol] 10 mg PO BID 07/30/21 07/30/21 History lisinopriL 20 mg PO BID 07/30/21 07/30/21 History Allergies Allergy/AdvReac Type Severity Reaction Status Date / Time corn Allergy Unknown Verified 07/30/21 21:18 peanut Allergy Unknown Verified 07/30/21 21:18 Physical Exam Vitals: Vital Signs Temp Pulse Resp BP Pulse Ox 07/31/21 10:52 98.9 F 94 24 148/75 95 07/31/21 09:45 26 H 95 07/31/21 08:35 97.9 F 114 H 34 H 149/72 86 L 07/31/21 08:29 86 L 07/31/21 07:48 93 L 07/31/21 04:07 98.6 F 118 H 28 H 149/76 90 L 07/30/21 23:46 73 28 H 123/58 94 L 07/30/21 20:05 97.9 F 98 28 H 140/93 95 Intake and Output 07/30/21 07/31/21 07/31/21 22:59 06:59 14:59 Intake Total 100 1170 Output Total 825 Balance 100 345 Intake: IV 20 FLUSH 20 Intake, IV Titration 1150 Amount Remdesivir 100 mg In 250 Sodium Chloride 0.9% 250 ml @ 250 mls/hr IVPB Q24H [facility] Rx#:[id number] Sodium Chloride 0.9% 1, 900 000 ml @ 75 mls/hr IV . [id number] [facility] Rx#:[id number] Oral 100 0 Output: Urine 825 Uretheral (Hogan) 825 Other: Voiding Method Indwelling Catheter Indwelling Catheter Weight 46 kg 46 kg Results 07/31/21 07:54 07/31/21 07:54 Cardiac Enzymes 07/30/21 07/30/21 07/31/21 Range/Units 21:40 21:40 07:54 AST 57 65 H (17-59) U/L Troponin I 0.026 (0.000-0.034) ng/mL CBC 07/30/21 07/31/21 Range/Units 21:40 07:54 WBC 10.0 16.1 H (3.8-10.6) k/uL RBC 5.63 5.82 (4.30-5.90) m/uL Hgb 16.2 16.6 (13.0-17.5) gm/dL Hct 50.2 52.3 (39.0-53.0) % Plt Count 298 208 (150-450) k/uL Comprehensive Metabolic Panel 07/30/21 07/31/21 Range/Units 21:40 07:54 Sodium 141 144 (137-145) mmol/L Potassium 4.5 4.5 (3.5-5.1) mmol/L Chloride 112 H 116 H (98-107) mmol/L Carbon Dioxide 19 L 14 L (22-30) mmol/L BUN 35 H 35 H (9-20) mg/dL Creatinine 0.62 L 0.66 (0.66-1.25) mg/dL Glucose 280 H 262 H (74-99) mg/dL Calcium 8.5 8.9 (8.4-10.2) mg/dL AST 57 65 H (17-59) U/L ALT 28 28 (4-49) U/L Alkaline Phosphatase 172 H 176 H (38-126) U/L Total Protein 6.4 6.4 (6.3-8.2) g/dL Albumin 3.1 L 3.0 L (3.5-5.0) g/dL Current Medications Generic Name Dose Route Start Last Admin Trade Name Freq PRN Reason Stop Dose Admin Acetaminophen 650 mg 07/30/21 21:09 Acetaminophen Tab 325 Mg Tab PO Q4HR PRN Fever and/ or Pain Hydrocodone Bitart/Acetaminophen 1 each 07/30/21 21:09 Hydrocodone/Apap 5-325mg 1 Each Tab PO Q6HR PRN Pain Alprazolam 0.25 mg 07/30/21 21:09 Alprazolam 0.25 Mg Tab PO QID PRN Agitation Ascorbic Acid 500 mg 07/31/21 09:00 07/31/21 09:49 Ascorbic Acid 500 Mg Tab PO Not Given DAILY [facility] Baricitinib 4 mg 07/31/21 12:30 Baricitinib 2 Mg Tablet PO 08/13/21 09:01 DAILY [facility] Cholecalciferol 10 mcg 07/31/21 09:00 07/31/21 09:49 Cholecalciferol 10 Mcg (400 Iu) Tablet PO Not Given DAILY [facility] Clopidogrel Bisulfate 75 mg 07/31/21 09:00 07/31/21 09:50 Clopidogrel 75 Mg Tab PO Not Given DAILY [facility] Dexamethasone Sodium Phosphate 6 mg 07/31/21 10:00 07/31/21 11:01 Dexamethasone Sod Phosphate 10 Mg/Ml 1 Ml Vial IV 6 mg DAILY [facility] Administration Diltiazem HCl 125 mg/ Sodium 125 mls @ 5 mls/hr 07/31/21 08:45 07/31/21 09:38 Chloride IV 5 mg/hr .Q24H [facility] 5 mls/hr Administration 5 MG/HR Sodium Chloride 1,000 mls @ 75 mls/hr 07/31/21 10:00 07/31/21 11:00 Saline 0.45% IV 75 mls/hr .[id number] [facility] Administration Sodium Chloride 1,000 mls @ 999 mls/hr 07/31/21 12:14 07/31/21 12:19 Saline 0.9% IV 07/31/21 13:14 999 mls/hr .Q1H1M ONE Administration Heparin Sodium/Sodium Chloride 250 mls @ 5.52 mls/hr 07/31/21 12:30 25,000 unit/ Sodium Chloride IV .Q24H [facility] Protocol 12 UNITS/KG/HR Insulin Aspart 0 unit 07/31/21 07:30 07/31/21 12:24 Insulin Aspart (Novolog) 100 Unit/Ml Vial SQ 3 unit ACHS [facility] Administration Protocol Insulin Detemir 10 unit 07/31/21 21:00 Insulin Detemir (Levemir) 100 Unit/Ml Syr SQ HS [facility] Metoprolol Tartrate 25 mg 07/31/21 00:15 07/31/21 09:49 Metoprolol Tartrate 25 Mg Tab PO Not Given BID [facility] Miscellaneous Information 1 each 07/30/21 22:09 Communication To Pharmacy 1 Each Misc PO ONCE PRN See Comments Miscellaneous Information 1 each 07/30/21 22:58 Rx Info: Iv Contrast Was Given 1 Each Misc MISCELLANE 08/01/21 22:59 DAILY PRN Per Protocol Zinc Sulfate 220 mg 07/31/21 09:00 07/31/21 09:50 Zinc Sulfate 220 Mg Cap PO Not Given DAILY [facility] Intake and Output 07/30/21 07/31/21 07/31/21 22:59 06:59 14:59 Intake Total 100 1170 Output Total 825 Balance 100 345 Intake: IV 20 FLUSH 20 Intake, IV Titration 1150 Amount Remdesivir 100 mg In 250 Sodium Chloride 0.9% 250 ml @ 250 mls/hr IVPB Q24H [facility] Rx#:[id number] Sodium Chloride 0.9% 1, 900 000 ml @ 75 mls/hr IV . [id number] [facility] Rx#:[id number] Oral 100 0 Output: Urine 825 Uretheral (Hogan) 825 Other: Voiding Method Indwelling Catheter Indwelling Catheter Weight 46 kg 46 kg 07/31/21 07:54 07/31/21 07:54
[2021-07-31] MEDS ORDERED: REMDESIVIR 100 MG in SODIUM CHLORIDE 0.9% 250 ML IVPB SCH (15:00)
[2021-07-31] MEDS: BARICITINIB 2 MG TABLET PO SCH (16:05)
[2021-07-31 19:02] LABS: Glucose,Whole Blood 222 mg/dL (75-99)
[2021-07-31 20:22] LABS: Glucose,Whole Blood 198 mg/dL (75-99)
[2021-07-31] MEDS ORDERED: FAMOTIDINE 20 MG/2 ML VIAL IV SCH (21:00)
[2021-07-31] MEDS: HEPARIN SODIUM 1,000 UN/ML (10ML VL) IV PRN (21:10)
[2021-07-31] MEDS: INSULIN DETEMIR (LEVEMIR) 100 UNIT/ML SYR SQ SCH (23:00)
--- NOTE | 2021-07-31 23:08 | P.CONS ---
History of Present Illness - Reason for Consult Consult date: 07/31/21 covid 19 pneumonia Requesting physician: Cornell Brewer - Chief Complaint shortness of breath x few days - History of Present Illness History of present illness : Patient is 75-year-old male who has been transferred from [facility] for worsening of his respiratory status and new onset atrial fibrillation patient apparently presented to that facility few days ago who the patient has been diagnosed with a COVID-19 pneumonia or the patient has been started on remdesivir Decadron however the patient noticed to have progressive worsening of his respiratory status and also developed A. fib with RVR for the patient has been transferred to this facility for further management patient on presentation to this hospital was afebrile and had the patient was hypoxic requiring a nonrebreather currently 93-96% 100% nonrebreather patient did have white count 16.1 with a left shift and lymphopenia kidney function was normal liver enzymes are elevated patient was initially continued on his remdesivir and subsequent has been discontinued by pulmonary patient be started on bosutinib continued on her deck drawn heparin but with visible to call zinc and ascorbic acid infectious was consulted for further management most information has been obtained from review the chart and talking nursing staff and the patient himself was lethargic and did not provide any history Review of system: Positive point has been mentioned in HPI complete review could not be obtained because of underlying mental status Past medical history : Reviewed, documented below Past surgical history : Reviewed, documented below Social history: Reviewed, documented below Medications: Reviewed, as documented below EXAMINATION: Vital sigans= Reviewed and documented below GENERAL DESCRIPTION: Elderly male lying in bed, no distress. No tachypnea or accessory muscle of respiration use. HEENT: Shows Pallor , no scleral icterus. Oral mucous membrane is dry. NECK: Trachea central, no thyromegaly. LUNGS: Unlabored breathing. Coarse breath sounds bilaterally. No wheeze or crackle. HEART: S1, S2, regular rate and rhythm. ABDOMEN: Soft, no tenderness , guarding or rigidity EXTREMITIES: No edema of feet. SKIN: No rash, no masses palpable. NEUROLOGICAL: The patient is lethargic orientation could not be determined LABS AND RADIOLOGY: Reviewed results see below Assessment : 1 patient presented to the hospital-with acute respiratory failure in this patient who did have evidence of extensive multifocal pneumonia segment COVID-19 infection with some other worsening of his respiratory status could be attributed to A. fib with RVR clinically no evidence of any secondary bacterial pneumonia and more likely dealing with a cytokine strome picture than the viremic phase Plan: 1-patient to continue with the baricitinib Decadron 2-Heparin per weight-based protocol per cardiology 3-zinc and ascorbic acid 4-droplet isolation and respiratory support We will follow on clinical condition and cultures to further adjust medication if needed Thank you for this consultation we will follow the patient along with you Past Medical History Past Medical History: Diabetes Mellitus, Hyperlipidemia, Hypertension Additional Past Medical History / Comment(s): back surgery History of Any Multi-Drug Resistant Organisms: None Reported Additional Past Surgical History / Comment(s): back, shoulder Past Psychological History: No Psychological Hx Reported Smoking Status: Never smoker Past Alcohol Use History: None Reported Past Drug Use History: Marijuana - Past Family History Father History Unknown: Yes Medications and Allergies Home Medications Medication Instructions Recorded Confirmed Type Azithromycin [Zithromax] See Taper PO DAILY 07/30/21 07/30/21 History Cbd Sublingual Tabs (Unknown 1 dose SL Q4-6H PRN 07/30/21 07/30/21 History Strength) Clopidogrel Bisulfate [Plavix] 75 mg PO DAILY 07/30/21 07/30/21 History Zinc 50 mg PO DAILY 07/30/21 07/30/21 History amLODIPine [Norvasc] 10 mg PO DAILY 07/30/21 07/30/21 History glipiZIDE [Glucotrol] 10 mg PO BID 07/30/21 07/30/21 History lisinopriL 20 mg PO BID 07/30/21 07/30/21 History Allergies Allergy/AdvReac Type Severity Reaction Status Date / Time corn Allergy Unknown Verified 07/30/21 21:18 peanut Allergy Unknown Verified 07/30/21 21:18 Physical Exam Vitals: Vital Signs Temp Pulse Resp BP Pulse Ox 07/31/21 10:52 98.9 F 94 24 148/75 95 07/31/21 09:45 26 H 95 07/31/21 08:35 97.9 F 114 H 34 H 149/72 86 L 07/31/21 08:29 86 L 07/31/21 07:48 93 L 07/31/21 04:07 98.6 F 118 H 28 H 149/76 90 L 07/30/21 23:46 73 28 H 123/58 94 L 07/30/21 20:05 97.9 F 98 28 H 140/93 95 Intake and Output 07/30/21 07/31/21 07/31/21 22:59 06:59 14:59 Intake Total 100 1170 Output Total 825 Balance 100 345 Intake: IV 20 FLUSH 20 Intake, IV Titration 1150 Amount Remdesivir 100 mg In 250 Sodium Chloride 0.9% 250 ml @ 250 mls/hr IVPB Q24H [facility] Rx#:[id number] Sodium Chloride 0.9% 1, 900 000 ml @ 75 mls/hr IV . [id number] [facility] Rx#:[id number] Oral 100 0 Output: Urine 825 Uretheral (Hogan) 825 Other: Voiding Method Indwelling Catheter Indwelling Catheter Weight 46 kg 46 kg Results CBC & Chem 7: 07/31/21 07:54 07/31/21 07:54 Labs: Abnormal Lab Results - Last 24 Hours (Table) 07/30/21 07/30/21 07/30/21 Range/Units 19:57 21:40 21:40 WBC (3.8-10.6) k/uL Neutrophils # 9.0 H (1.3-7.7) k/uL Lymphocytes # 0.4 L (1.0-4.8) k/uL D-Dimer >34.10 H (<0.60) mg/L FEU Chloride (98-107) mmol/L Carbon Dioxide (22-30) mmol/L BUN (9-20) mg/dL Creatinine (0.66-1.25) mg/dL Glucose (74-99) mg/dL POC Glucose (mg/dL) 268 H (75-99) mg/dL Ferritin (22.0-322.0) ng/mL Total Bilirubin (0.2-1.3) mg/dL AST (17-59) U/L Alkaline Phosphatase (38-126) U/L C-Reactive Protein (<1.0) mg/dL Albumin (3.5-5.0) g/dL 07/30/21 07/31/21 07/31/21 Range/Units 21:40 06:31 07:54 WBC 16.1 H (3.8-10.6) k/uL Neutrophils # 15.2 H (1.3-7.7) k/uL Lymphocytes # 0.5 L (1.0-4.8) k/uL D-Dimer (<0.60) mg/L FEU Chloride 112 H (98-107) mmol/L Carbon Dioxide 19 L (22-30) mmol/L BUN 35 H (9-20) mg/dL Creatinine 0.62 L (0.66-1.25) mg/dL Glucose 280 H (74-99) mg/dL POC Glucose (mg/dL) 233 H (75-99) mg/dL Ferritin 1402.8 H (22.0-322.0) ng/mL Total Bilirubin (0.2-1.3) mg/dL AST (17-59) U/L Alkaline Phosphatase 172 H (38-126) U/L C-Reactive Protein 6.1 H (<1.0) mg/dL Albumin 3.1 L (3.5-5.0) g/dL 07/31/21 Range/Units 07:54 WBC (3.8-10.6) k/uL Neutrophils # (1.3-7.7) k/uL Lymphocytes # (1.0-4.8) k/uL D-Dimer (<0.60) mg/L FEU Chloride 116 H (98-107) mmol/L Carbon Dioxide 14 L (22-30) mmol/L BUN 35 H (9-20) mg/dL Creatinine (0.66-1.25) mg/dL Glucose 262 H (74-99) mg/dL POC Glucose (mg/dL) (75-99) mg/dL Ferritin (22.0-322.0) ng/mL Total Bilirubin 1.5 H (0.2-1.3) mg/dL AST 65 H (17-59) U/L Alkaline Phosphatase 176 H (38-126) U/L C-Reactive Protein (<1.0) mg/dL Albumin 3.0 L (3.5-5.0) g/dL
[2021-08-01 00:15] LABS: Glucose,Whole Blood 177 mg/dL (75-99)
[2021-08-01] MEDS: INSULIN ASPART (NovoLOG) 100 UNIT/ML VIAL SQ SCH ×4 (00:17→19:16)
[2021-08-01 05:26] LABS: HCT 48.1 % (39.0-53.0); HGB 16.1 gm/dL (13.0-17.5); MCH 28.6 pg (25.0-35.0); MCHC 33.6 g/dL (31.0-37.0); MCV 85.3 fL (80.0-100.0); Mean Platelet Volume 8.5; Platelet Count 234 k/uL (150-450); RBC 5.64 m/uL (4.30-5.90); RDW 13.9 % (11.5-15.5); WBC 14.1 k/uL (3.8-10.6)
[2021-08-01] MEDS: DILTIAZEM 125 MG in SODIUM CHLORIDE 0.9% 100 ML IV SCH (05:44)
[2021-08-01 05:45] LABS: Partial Thromboplastin Time 47.4 sec (22.0-30.0)
[2021-08-01 05:46] LABS: African American GFR (CKD) >90 (>60 ml/min/1.73 sqM); Anion Gap 8 mmol/L; Blood Urea Nitrogen 31 mg/dL (9-20); C Reactive Protein 6.3 mg/dL (<1.0); Carbon Dioxide 21 mmol/L (22-30); Chloride 112 mmol/L (98-107); Glucose 161 mg/dL (74-99); Non-African American GFR(CKD) >90 (>60 ml/min/1.73 sqM); Sodium 141 mmol/L (137-145)
[2021-08-01 05:49] LABS: Glucose,Whole Blood 135 mg/dL (75-99)
[2021-08-01 05:54] LABS: LDH 3255 U/L (313-618); Potassium 4.5 mmol/L (3.5-5.1)
--- NOTE | 2021-08-01 08:44 | XR ---
EXAMINATION TYPE: XR chest 1V portable DATE OF EXAM: 08/01/2021 Comparison: 07/31/2021 Clinical History: 75-year-old male CoVID pneumonia Findings: ACDF hardware. Heart normal size. Bilateral consolidation, left greater than right is relatively unch anged. No pneumothorax or pleural effusion. Impression: Left greater than right peripheral COVID pneumonia is relatively unchanged.
[2021-08-01] MEDS ORDERED: RX INFO: IV CONTRAST WAS GIVEN 1 EACH MISC MISCELLANE PRN (09:18)
--- NOTE | 2021-08-01 09:23 | P.PN ---
Subjective Progress Note Date: 08/01/21 75-year-old male patient, came in from [place] for: Attributed to monitor respiratory failure. He also was in new onset atrial fibrillation with rapid ventricular response. The patient is quite debilitated. He looks very tired and lethargic. He is unable to provide much history. He is at the point where he is unable to take any oral medications because of generalized weakness and debility. He is currently on 100% nonrebreather facemask in addition to 15 L about 2 by nasal cannula. His chest x-ray showed diffuse bilateral pulmonary infiltrates. CT angiogram also showed diffuse bilateral groundglass pulmonary infiltrates consistent with COVID-19 related pneumonia. There is no evidence of any pulmonary embolism. The patient is currently on Decadron. Note that his symptoms started approximately 4 days prior to him coming to the hospital. He is diabetic. He has hypertension and hyperlipidemia as comorbid conditions. I saw this patient this afternoon. The patient as stated was sleeping. Lethargic. Not much conversing. He does not seem to be in significant respiratory distress. Nevertheless very much oxygen dependent to maintain a saturation above 90%. His blood work has shown a white cell count of 16.1. Hemoglobin of 16.6. He has a lymphopenia with a lymphocyte count of 0.5. D- dimer is more than 34. He has a non-anion gap metabolic acidosis. The gap was 14 with a serum bicarb level of 14. His creatinine stable at 0.6. ALT is 28. AST is 65. Alkaline phosphatase is 176. Bilirubin level was 1.5. C-reactive protein was 6.1. His LDH has not been checked. The patient is also on a Cardizem drip at that H of 5 mg an hour. His current heart rate is 95, irregular. He has a Hogan catheter in place. IV fluids are running at half- normal saline at 75 mL an hour. The patient has a blood sugar of 206. Currently receiving a insulin sliding scale coverage and his Levemir insulin has been at 10 units an hour. On today's evaluation of 07/24/2021, the patient is being seen in follow-up in the intensive care unit. The patient was seen in consultation and based on his altered mentation, diminished level of consciousness, and acute hypoxic respiratory failure due to COVID-19 related pneumonia, the patient got transferred to the intensive care unit. He was started on Decadron. On today's evaluation, he remains on 15 L of oxygen by nasal cannula along with 100% nonrebreather facemask. He remains extremely lethargic and somnolent. He withdraws to painful stimulation does not communicate spontaneously. He can answer some simple questions when asked questions and he follows some simple commands. His neurologic exam is nonfocal and the patient does not have any neck stiffness. He is feeding habits are weak and the patient is unable to swa llow at this point in time. He has generalized global motor weakness in all 4 extremities. His LDH level is elevated at 3255 and a CRP level is at 6.3. In terms of therapy, the patient remains on Decadron. The patient's d-dimer was above 34,000. There is on a heparin drip 90 the patient also developed a atrial fibrillation with rapid ventricular response. Echocardiogram was done yesterday and it showed a normal ejection fraction of 50-55%. No other valvular abnormalities. Mild mitral regurgitation and tricuspid regurgitation. The patient was in atrial fibrillation at a controlled rate with a moderate concentric left ventricular hypertrophy. He remains on a Cardizem drip running at 5 mg an hour and the heart rate today is at mid 80s. The pro calcitonin level is still pending. Meanwhile, the patient will be started on Omuliant as long as he is able to swallow the medication. Alternatively, we can consider a single dose of Actemra if the drug is available by pharmacy and this will be discussed further. Mother the patient is having difficulties with swallowing because of increased weakness and lethargy. CAT scan of the brain has not been done. We will ask to proceed with a CAT scan of the brain today. We are also going to proceed with a neurologic consultation today. In terms of his blood sugar control, the patient is on sliding scale with Accu-Cheks every 6 hours. He also takes Levemir 10 units on a daily basis. He is on IV fluids with half- normal saline at the rate of 75 mL's an hour.In terms of his labs, the patient's renal function is stable to be in of 31 and a creatinine of 0.6, sodium is at 141, white cell count is at 14.1 with a hemoglobin of 16.1 and a platelet count of 234. Objective - Vital Signs Vital signs: Vital Signs Temp 97.3 F L 08/01/21 04:00 Pulse 83 08/01/21 07:00 Resp 22 08/01/21 07:00 BP 127/71 08/01/21 07:00 Pulse Ox 96 08/01/21 07:00 Intake & Output 07/31/21 08/01/21 08/01/21 18:59 06:59 18:59 Intake Total 1588.4 1168.468 Output Total 1930 770 Balance -341.6 398.468 Weight 46 kg 62.5 kg Intake: IV 420 1040 Diltiazem 125 mg In 25 65 Sodium Chloride 0.9% 100 ml @ 5 MG/HR 5 mls/hr IV .Q24H [facility] Rx#:[id number] FLUSH 20 Sodium Chloride 0.45% 1, 375 975 000 ml @ 75 mls/hr IV . [id number] [facility] Rx#:[id number] Intake, IV Titration 1168.4 128.468 Amount Diltiazem 125 mg In 100.5 Sodium Chloride 0.9% 100 ml @ 5 MG/HR 5 mls/hr IV .Q24H [facility] Rx#:[id number] Heparin Sod,Pork in 0.45% 18.4 27.968 NaCl 25,000 unit In 0.45 % NaCl 1 250ml.bag @ 12 UNITS/KG/HR 5.52 mls/hr IV .Q24H [facility] Rx#: [id number] Remdesivir 100 mg In 250 Sodium Chloride 0.9% 250 ml @ 250 mls/hr IVPB Q24H [facility] Rx#:[id number] Sodium Chloride 0.9% 1, 900 000 ml @ 75 mls/hr IV . [id number] [facility] Rx#:[id number] Oral 0 Output: Urine 1930 770 Uretheral (Hogan) 1200 Other: Voiding Method Indwelling Catheter Indwelling Catheter - Exam Lethargic, calm, comfortable, no agitation, sleepy, his breathing is not labored. At times, he gets restless according nursing staff. At time of my shayna luation, he looked to be quiet comfortable. Head exam was generally normal. There was no scleral icterus or corneal arcus. Mucous membranes were moist. HEENT: Pupils are round and equally reacting to light. EOMI. No scleral icterus. No conjunctival pallor. Normocephalic, atraumatic. No pharyngeal erythema. No thyromegaly. CARDIOVASCULAR: S1 and S2 present. No murmurs, rubs, or gallops. Tachycardic irregularly irregular rhythm PULMONARY: Diffuse bilateral crackles ABDOMEN: Soft, nontender, nondistended, normoactive bowel sounds. No palpable organomegaly. MUSCULOSKELETAL: No joint swelling or deformity. EXTREMITIES: No cyanosis, clubbing, or pedal edema. NEUROLOGICAL: Gross neurological examination Normal. He is arousable, extremely lethargic, is not following any commands. He is moving all 4 extremities to deep painful stimulation. SKIN: No rashes. - Labs CBC & Chem 7: 08/01/21 04:47 08/01/21 04:53 Labs: Abnormal Lab Results - Last 24 Hours (Table) 07/30/21 07/31/21 07/31/21 Range/Units 21:40 07:54 12:05 WBC (3.8-10.6) k/uL APTT (22.0-30.0) sec D-Dimer (<0.60) mg/L FEU Chloride (98-107) mmol/L Carbon Dioxide (22-30) mmol/L BUN (9-20) mg/dL Creatinine (0.66-1.25) mg/dL Glucose (74-99) mg/dL POC Glucose (mg/dL) 206 H (75-99) mg/dL Hemoglobin A1c 9.2 H (4.0-6.0) % Calcium (8.4-10.2) mg/dL Ferritin 1402.8 H (22.0-322.0) ng/mL Lactate Dehydrogenase (313-618) U/L C-Reactive Protein (<1.0) mg/dL 07/31/21 07/31/21 07/31/21 Range/Units 19:01 20:10 20:21 WBC (3.8-10.6) k/uL APTT 42.6 H (22.0-30.0) sec D-Dimer (<0.60) mg/L FEU Chloride (98-107) mmol/L Carbon Dioxide (22-30) mmol/L BUN (9-20) mg/dL Creatinine (0.66-1.25) mg/dL Glucose (74-99) mg/dL POC Glucose (mg/dL) 222 H 198 H (75-99) mg/dL Hemoglobin A1c (4.0-6.0) % Calcium (8.4-10.2) mg/dL Ferritin (22.0-322.0) ng/mL Lactate Dehydrogenase (313-618) U/L C-Reactive Protein (<1.0) mg/dL 08/01/21 08/01/21 08/01/21 Range/Units 00:13 04:47 04:47 WBC 14.1 H (3.8-10.6) k/uL APTT 47.4 H (22.0-30.0) sec D-Dimer >34.10 H (<0.60) mg/L FEU Chloride (98-107) mmol/L Carbon Dioxide (22-30) mmol/L BUN (9-20) mg/dL Creatinine (0.66-1.25) mg/dL Glucose (74-99) mg/dL POC Glucose (mg/dL) 177 H (75-99) mg/dL Hemoglobin A1c (4.0-6.0) % Calcium (8.4-10.2) mg/dL Ferritin (22.0-322.0) ng/mL Lactate Dehydrogenase (313-618) U/L C-Reactive Protein (<1.0) mg/dL 08/01/21 08/01/21 Range/Units 04:53 05:47 WBC (3.8-10.6) k/uL APTT (22.0-30.0) sec D-Dimer (<0.60) mg/L FEU Chloride 112 H (98-107) mmol/L Carbon Dioxide 21 L (22-30) mmol/L BUN 31 H (9-20) mg/dL Creatinine 0.61 L (0.66-1.25) mg/dL Glucose 161 H (74-99) mg/dL POC Glucose (mg/dL) 135 H (75-99) mg/dL Hemoglobin A1c (4.0-6.0) % Calcium 8.0 L (8.4-10.2) mg/dL Ferritin (22.0-322.0) ng/mL Lactate Dehydrogenase 3255 H (313-618) U/L C-Reactive Protein 6.3 H (<1.0) mg/dL Assessment and Plan Plan: 1 COVID-19 related pneumonia with secondary hypoxic respiratory failure. Patient was found to be symptomatic approximately a week ago and his condition has progressed significantly and currently is on high flow oxygen at 15 L along with on a percent nonrebreather facemask, clinically unchanged and the patient's chest x-ray from today is showing bilateral pulmonary infiltrates, diffuse consistent with COVID-19 related pneumonia and overall oxygenation status has remained unchanged compared yesterday as the patient remains on a nonrebreather facemask with 100% FiO2 in addition to 15 L by nasal cannula. Breathing is slightly labored. No interval decompensation or worsening in the respiratory status compared to yesterday. The chest x-ray remains relatively unchanged compared to yesterday. There is obvious worsening pulsation on the left compared to the right, essentially a peripheral infiltration. 2 acute hypoxic respiratory failure secondary to above 3 altered mentation with diminished level of consciousness likely secondary to COVID-19 related encephalopathy. His neurologic exam is nonfocal 4 mild leukocytosis with a white cell count of 14.1 and lymphopenia 5 elevated inflammatory markers secondary to above 6 non-anion gap metabolic acidosis, recovered 7 diabetes mellitus 8 hypertension 9 hyperlipidemia 10 new onset atrial fibrillation with rapid ventricular response and the patient is currently on a Cardizem drip at 5 mg an hour Plan Obtain a neurology consultation regarding ongoing lethargy and global weakness and difficulty in swallowing Speech to evaluate a bedside swallow CAT scan of the brain without contrast Awaiting pro calcitonin level Continue Decadron If the pro calcitonin level is low, would proceed with Baricitinib regarding his COVID-19 related pneumonia, nevertheless the patient may not be able to swallow the medication and we'll going to Pharmacy and see if we can provide this patient actemra Insulin sliding scale coverage in addition to Levemir insulin dose to be adjusted in the intensive care unit based on his blood sugar control IV heparin regarding his atrial fibrillation echocardiogram noted Doppler of LE monitor oxygenation keep the patient 100% nonrebreather facemask addition to high flow oxygen condition is critical and the patient will be transferred to the intensive care unit. Critical care min, >30 min Time with Patient: Greater than 30
[2021-08-01] MEDS: DEXAMETHASONE SOD PHOSPHATE 10 MG/ML 1 ML VIAL IV SCH (09:35)
--- NOTE | 2021-08-01 10:44 | US ---
EXAMINATION TYPE: US venous doppler duplex LE DATE OF EXAM: 08/01/2021 10:13 AM COMPARISON: NONE CLINICAL HISTORY: 75-year-old male Elevated d dimer, CoVID. SIDE PERFORMED: Bilateral TECHNIQUE: The lower extremity deep venous system is examined utilizing real time linear array sonog dayanna with graded compression, doppler sonography and color-flow sonography. FINDINGS: VESSELS IMAGED: Common Femoral Vein Deep Femoral Vein Greater Saphenous Vein * Femoral Vein Popliteal Vein Small Saphenous Vein * Proximal Calf Veins (* superficial vessels) Right Leg: Negative for DVT Left Leg: Negative for DVT IMPRESSION: No evidence for DVT within the bilateral lower extremities imaged from the groin to the upper calves.
--- NOTE | 2021-08-01 11:21 | P.PN ---
Subjective Progress Note Date: 08/01/21 HISTORY OF PRESENT ILLNESS: This is a pleasant 75-year-old male past medical history significant for hypertension, dyslipdiemia and diabetes mellitus. He has no history of documented heart disease. He is not communicating appropriately. Information is obtained from the nursing staff and medical record. We have been asked to see in consultation for new onset afib. He presented to the hospital and was diagnosed with COVID 19. On arrival to outside facility he was was found to be in atrial fibrillation. He continues to be in afib with variable ventricular rates. He is not taking oral medication currently due to altered mental status. Chest x-ray reveals diffuse bilateral lung infiltrates. CTA was negative for pulmonary embolism with extensive pulmonary infiltrates noted. Echocardiogram obtained reveals preserved LV systolic function with ejection fraction 55-60%, mild MR and mild TR noted. Endotracheal data reviewed, WBC 16.1, hemoglobin 16.6, platelets 208, sodium 144, potassium 4.5, creatinine 0.66, d-dimer greater than 34 and troponin negative 1. Current daily cardiac medications include Plavix 75 mg daily, lisinopril 20 mg BID, amlodipine 10 mg daily. 08/01/2021 Patient remains in the ICU. He is on a nasal cannula and a non-rebreather mask. Telemetry reveals atrial fibrillation with controlled ventricular rates. He remains on a Cardizem drip at 5 mg an hour. Patient also remains on IV heparin. PHYSICAL EXAM: Thorough physical exam not completed secondary to limited evaluation/examination due to Covid19 ASSESSMENT: New onset persistent atrial fibrillation COVID pneumonia Acute hypoxic respiratory failure Altered mental status Leukocytosis Hypertension Dyslipidemia Diabetes mellitus PLAN: Continue IV heparin for thromboembolic protection Continue IV Cardizem as patient is unable to take oral medications at this time Transition to oral medications when patient can tolerate We will follow on an as needed basis. Please call with questions or concerns. Nurse practitioner note has been reviewed by physician. Signing provider agrees with the documented findings, assessment, and plan of care. Objective - Vital Signs Vital signs: Vital Signs Temp 98.7 F 08/01/21 09:00 Pulse 104 H 08/01/21 10:00 Resp 40 H 08/01/21 10:00 BP 136/79 08/01/21 10:00 Pulse Ox 92 L 08/01/21 10:00 Intake & Output 07/31/21 08/01/21 08/01/21 18:59 06:59 18:59 Intake Total 1588.4 1168.468 510 Output Total 1930 770 150 Balance -341.6 398.468 360 Weight 46 kg 62.5 kg Intake: IV 420 1040 150 Diltiazem 125 mg In 25 65 Sodium Chloride 0.9% 100 ml @ 5 MG/HR 5 mls/hr IV .Q24H [facility] Rx#:[id number] FLUSH 20 Sodium Chloride 0.45% 1, 375 975 150 000 ml @ 75 mls/hr IV . [id number] [facility] Rx#:[id number] Intake, IV Titration 1168.4 128.468 Amount Diltiazem 125 mg In 100.5 Sodium Chloride 0.9% 100 ml @ 5 MG/HR 5 mls/hr IV .Q24H [facility] Rx#:[id number] Heparin Sod,Pork in 0.45% 18.4 27.968 NaCl 25,000 unit In 0.45 % NaCl 1 250ml.bag @ 12 UNITS/KG/HR 5.52 mls/hr IV .Q24H [facility] Rx#: [id number] Remdesivir 100 mg In 250 Sodium Chloride 0.9% 250 ml @ 250 mls/hr IVPB Q24H [facility] Rx#:[id number] Sodium Chloride 0.9% 1, 900 000 ml @ 75 mls/hr IV . [id number] [facility] Rx#:[id number] Oral 0 360 Output: Urine 1930 770 150 Uretheral ([place]) 1200 Other: Voiding Method Indwelling Catheter Indwelling Catheter Indwelling Catheter - Labs CBC & Chem 7: 08/01/21 04:47 08/01/21 04:53 Labs: Abnormal Lab Results - Last 24 Hours (Table) 07/31/21 07/31/21 07/31/21 Range/Units 07:54 12:05 19:01 WBC (3.8-10.6) k/uL APTT (22.0-30.0) sec D-Dimer (<0.60) mg/L FEU Chloride (98-107) mmol/L Carbon Dioxide (22-30) mmol/L BUN (9-20) mg/dL Creatinine (0.66-1.25) mg/dL Glucose (74-99) mg/dL POC Glucose (mg/dL) 206 H 222 H (75-99) mg/dL Hemoglobin A1c 9.2 H (4.0-6.0) % Calcium (8.4-10.2) mg/dL Lactate Dehydrogenase (313-618) U/L C-Reactive Protein (<1.0) mg/dL 07/31/21 07/31/21 08/01/21 Range/Units 20:10 20:21 00:13 WBC (3.8-10.6) k/uL APTT 42.6 H (22.0-30.0) sec D-Dimer (<0.60) mg/L FEU Chloride (98-107) mmol/L Carbon Dioxide (22-30) mmol/L BUN (9-20) mg/dL Creatinine (0.66-1.25) mg/dL Glucose (74-99) mg/dL POC Glucose (mg/dL) 198 H 177 H (75-99) mg/dL Hemoglobin A1c (4.0-6.0) % Calcium (8.4-10.2) mg/dL Lactate Dehydrogenase (313-618) U/L C-Reactive Protein (<1.0) mg/dL 08/01/21 08/01/21 08/01/21 Range/Units 04:47 04:47 04:53 WBC 14.1 H (3.8-10.6) k/uL APTT 47.4 H (22.0-30.0) sec D-Dimer >34.10 H (<0.60) mg/L FEU Chloride 112 H (98-107) mmol/L Carbon Dioxide 21 L (22-30) mmol/L BUN 31 H (9-20) mg/dL Creatinine 0.61 L (0.66-1.25) mg/dL Glucose 161 H (74-99) mg/dL POC Glucose (mg/dL) (75-99) mg/dL Hemoglobin A1c (4.0-6.0) % Calcium 8.0 L (8.4-10.2) mg/dL Lactate Dehydrogenase 3255 H (313-618) U/L C-Reactive Protein 6.3 H (<1.0) mg/dL 08/01/21 Range/Units 05:47 WBC (3.8-10.6) k/uL APTT (22.0-30.0) sec D-Dimer (<0.60) mg/L FEU Chloride (98-107) mmol/L Carbon Dioxide (22-30) mmol/L BUN (9-20) mg/dL Creatinine (0.66-1.25) mg/dL Glucose (74-99) mg/dL POC Glucose (mg/dL) 135 H (75-99) mg/dL Hemoglobin A1c (4.0-6.0) % Calcium (8.4-10.2) mg/dL Lactate Dehydrogenase (313-618) U/L C-Reactive Protein (<1.0) mg/dL
--- NOTE | 2021-08-01 13:07 | P.CNNES ---
History of Present Illness Consult date: 08/01/21 Requesting physician: Mirna Ray Reason for Consult: altered mental status History of Present Illness: This is a 75-year-old gentleman with history of hypertension, hyperlipidemia, diabetes mellitus, new onset atrial fibrillation with RVR, who was transferred from [place] for respiratory failure. Also seems that the patient had a positive COVID test result over at [facility]. History was obtained from medical record. Neurology is consulted for altered mental status. He has COVID-19 related pneumonia. Per the ICU nurse she stated the patient's is somewhat confused but he is responding to questions and some abnormal for appropriate but and he did not have any focal weakness. It seems that the pa violet had generalized weakness. Most current vital signs his blood pressure of 136/70, heart rate of 104, respiratory of 40, temperature of 98.7 axillary, pulse ox of 92% on 15 L of high flow cannula rate since the patient has been the hospital the patient has been afebrile. On initial presentation patient's white blood cells 10.0 thousand which was in normal limits and was current 14.1 thousand the patient is on Decadron which is likely reactive his white blood cell. Sodium is 141, creatinine is 0.61, glucose has been in the range of 130s to 200s, calcium is 8.0, AST of 65 and ALT of 28 2-D echo was reported as a ejection fraction of 55-60%. Moderate concentric left ventricular hypertrophy. Review of Systems Review of system is limited because of the patient's condition but the per positive and negative as per HPI. Past Medical History Past Medical History: Diabetes Mellitus, Hyperlipidemia, Hypertension Additional Past Medical History / Comment(s): back surgery History of Any Multi-Drug Resistant Organisms: None Reported Additional Past Surgical History / Comment(s): back, shoulder Past Psychological History: No Psychological Hx Reported Smoking Status: Never smoker Past Alcohol Use History: None Reported Past Drug Use History: Marijuana - Past Family History Father History Unknown: Yes Medications and Allergies Home Medications Medication Instructions Recorded Confirmed Type Azithromycin [Zithromax] See Taper PO DAILY 07/30/21 07/30/21 History Cbd Sublingual Tabs (Unknown 1 dose SL Q4-6H PRN 07/30/21 07/30/21 History Strength) Clopidogrel Bisulfate [Plavix] 75 mg PO DAILY 07/30/21 07/30/21 History Zinc 50 mg PO DAILY 07/30/21 07/30/21 History amLODIPine [Norvasc] 10 mg PO DAILY 07/30/21 07/30/21 History glipiZIDE [Glucotrol] 10 mg PO BID 07/30/21 07/30/21 History lisinopriL 20 mg PO BID 07/30/21 07/30/21 History Allergies Allergy/AdvReac Type Severity Reaction Status Date / Time corn Allergy Unknown Verified 07/30/21 21:18 peanut Allergy Unknown Verified 07/30/21 21:18 Physical Examination - Vital Signs Vital Signs: Vital Signs Temp Pulse Resp BP Pulse Ox 08/01/21 10:00 104 H 40 H 136/79 92 L 08/01/21 09:00 98.7 F 93 19 129/82 93 L 08/01/21 08:00 86 16 118/75 92 L 08/01/21 07:00 83 22 127/71 96 08/01/21 06:00 86 19 141/82 100 08/01/21 05:00 91 20 136/77 96 08/01/21 04:00 97.3 F L 92 11 L 141/79 96 08/01/21 03:00 92 15 132/84 100 08/01/21 02:00 75 28 H 139/80 94 L 08/01/21 01:00 87 20 143/88 93 L 08/01/21 00:21 88 16 94 L 08/01/21 00:00 97.6 F 87 9 L 148/80 95 07/31/21 23:00 89 23 142/81 96 07/31/21 22:00 85 13 131/87 93 L 07/31/21 21:00 84 16 158/84 93 L 07/31/21 20:26 95 07/31/21 20:00 98.4 F 89 18 143/82 93 L 07/31/21 19:00 90 29 H 128/88 88 L 07/31/21 18:00 94 26 H 120/80 94 L 07/31/21 17:00 94 27 H 122/78 94 L 07/31/21 16:00 98.6 F 92 26 H 138/84 94 L 07/31/21 15:00 93 33 H 124/79 96 07/31/21 14:00 98.6 F 105 H 30 H 140/84 94 L 07/31/21 13:35 104 H 27 H Intake and Output 07/31/21 08/01/21 08/01/21 22:59 06:59 14:59 Intake Total 686.368 820.5 510 Output Total 465 535 150 Balance 221.368 285.5 360 Intake: IV 640 720 150 Diltiazem 125 mg In 40 45 Sodium Chloride 0.9% 100 ml @ 5 MG/HR 5 mls/hr IV .Q24H [facility] Rx#:[id number] Sodium Chloride 0.45% 1, 600 675 150 000 ml @ 75 mls/hr IV . [id number] [facility] Rx#:[id number] Intake, IV Titration 46.368 100.5 Amount Diltiazem 125 mg In 100.5 Sodium Chloride 0.9% 100 ml @ 5 MG/HR 5 mls/hr IV .Q24H [facility] Rx#:[id number] Heparin Sod,Pork in 0.45% 46.368 NaCl 25,000 unit In 0.45 % NaCl 1 250ml.bag @ 12 UNITS/KG/HR 5.52 mls/hr IV .Q24H [facility] Rx#: [id number] Oral 360 Output: Urine 465 535 150 Other: Voiding Method Indwelling Catheter Indwelling Catheter Indwelling Catheter Weight 62.5 kg GENERAL: The patient is lying in bed and is not in acute distress. CHEST: The heart rate is regular rate rhythm. No murmurs to auscultation. No carotid bruit bilaterally----. LUNG: Clear to auscultation bilaterally no wheezing noted throughout. Not labored breathing. ABDOMEN/GI: Bowel sounds present in all 4 quadrants. No tenderness to palpation throughout. NEUROLOGICAL: Limited because of his cooperation. Higher mental function: The patient is drowsy but is awakeable to repeated voice. He is oriented to self and stated he was in the hospital but would not respond to name. He could not tell me month or year. He is following simple commands. No neglect. Cranial nerves: The pupils are round, equal and reactive to light. He would not participate in visual [place] and had hard time assessing EOM. No facial weakness noted. No dysarthria is noted. Motor: Gait is deferred because of his cooperation. The strength is lifting all extremities above gravity without focality. Individual muscles could not be assessed because of cooperation. Normal bulk but decrease tone throughout.. Cerebellum: Could not assess because of his cooperation. Sensation: Could not assess light touch but seems intact to painful stimuli throughout. Reflexes (right/left): 1+ throughout. Plantars are downgoing bilaterally. Results - Laboratory Findings CBC and BMP: 08/01/21 04:47 08/01/21 04:53 Abnormal Lab Findings: Abnormal Labs 07/30/21 07/30/21 07/30/21 19:57 21:40 21:40 WBC Neutrophils # 9.0 H Lymphocytes # 0.4 L APTT D-Dimer >34.10 H Chloride Carbon Dioxide BUN Creatinine Glucose POC Glucose (mg/dL) 268 H Hemoglobin A1c Calcium Ferritin Total Bilirubin AST Alkaline Phosphatase Lactate Dehydrogenase C-Reactive Protein Albumin 07/30/21 07/31/21 07/31/21 21:40 06:31 07:54 WBC Neutrophils # Lymphocytes # APTT D-Dimer Chloride 112 H Carbon Dioxide 19 L BUN 35 H Creatinine 0.62 L Glucose 280 H POC Glucose (mg/dL) 233 H Hemoglobin A1c 9.2 H Calcium Ferritin 1402.8 H Total Bilirubin AST Alkaline Phosphatase 172 H Lactate Dehydrogenase C-Reactive Protein 6.1 H Albumin 3.1 L 07/31/21 07/31/21 07/31/21 07:54 07:54 12:05 WBC 16.1 H Neutrophils # 15.2 H Lymphocytes # 0.5 L APTT D-Dimer Chloride 116 H Carbon Dioxide 14 L BUN 35 H Creatinine Glucose 262 H POC Glucose (mg/dL) 206 H Hemoglobin A1c Calcium Ferritin Total Bilirubin 1.5 H AST 65 H Alkaline Phosphatase 176 H Lactate Dehydrogenase C-Reactive Protein Albumin 3.0 L 07/31/21 07/31/21 07/31/21 19:01 20:10 20:21 WBC Neutrophils # Lymphocytes # APTT 42.6 H D-Dimer Chloride Carbon Dioxide BUN Creatinine Glucose POC Glucose (mg/dL) 222 H 198 H Hemoglobin A1c Calcium Ferritin Total Bilirubin AST Alkaline Phosphatase Lactate Dehydrogenase C-Reactive Protein Albumin 08/01/21 08/01/21 08/01/21 00:13 04:47 04:47 WBC 14.1 H Neutrophils # Lymphocytes # APTT 47.4 H D-Dimer >34.10 H Chloride Carbon Dioxide BUN Creatinine Glucose POC Glucose (mg/dL) 177 H Hemoglobin A1c Calcium Ferritin Total Bilirubin AST Alkaline Phosphatase Lactate Dehydrogenase C-Reactive Protein Albumin 08/01/21 08/01/21 04:53 05:47 WBC Neutrophils # Lymphocytes # APTT D-Dimer Chloride 112 H Carbon Dioxide 21 L BUN 31 H Creatinine 0.61 L Glucose 161 H POC Glucose (mg/dL) 135 H Hemoglobin A1c Calcium 8.0 L Ferritin Total Bilirubin AST Alkaline Phosphatase Lactate Dehydrogenase 3255 H C-Reactive Protein 6.3 H Albumin Assessment and Plan Assessment: Altered mental status with generalized weakness and dysphagia due to COVID-19 pneumonia with secondary hypoxic respiratory failure. COVID-19 related pneumonia with secondary hypoxic respiratory failure New-onset atrial fibrillation currently on Cardizem Diabetes mellitus Hypertension Hyperlipidemia Plan: ICU team ordered CT of the head and that is pending. I ordered a routine EEG. I'll not start the patient on antiepileptic drug unless there is up to form discharges or seizure on the EEG. I ordered TSH, vitamin B-12 and folate level. I also ordered ammonia level. Currently the patient is on IV heparin drip for the atrial fibrillation and we'll defer the management to cardiology as well as the primary team. PT, OT and REGIONAL MAINTENANCE MANAGER are consulted We'll defer the rest of the medical management to the primary as well as a ICU team. The plan was discussed with the patient's ICU nurse. Thank you for the consultation. Kaiser Ochoa M.D. Neuro-hospitalist Time with Patient: Greater than 30
--- NOTE | 2021-08-01 13:23 | CT ---
EXAMINATION TYPE: CT brain wo con DATE OF EXAM: 08/01/2021 COMPARISON: 12/04/2019 HISTORY: Decreased mental status CT DLP: 1202.[address] of the brain was performed. The ventricles, basal cisterns and sulci overlying the cerebral convexities demonstrate mild enlargem ent. There is decreased attenuation within the right cerebellar hemisphere which could reflect underl benjy lesion or vascular insult. Correlate with MRI. Within the superior portion of the cerebellum the re is a rounded area of decreased attenuation measuring 8 mm. The brain parenchyma is otherwise homog eneous. There is no evidence for intracranial hemorrhage or sulcal effacement. There is decreased attenuation about the periventricular white matter and deep white matter of both c erebral hemispheres, compatible with chronic small vessel ischemia. Differential diagnosis does inclu de demyelination. No mass effects are seen.No midline shift. Osseous calvarium is intact. If symptoms persist consider MRI. IMPRESSION: 1. Abnormal areas of attenuation within the right cerebellum may reflect vascular insult however unde rlying lesions or necrotic. Correlate with MRI.
[2021-08-01 15:10] LABS: T4, Free (Free Thyroxine) 4.06 ng/dL (0.78-2.19)
--- NOTE | 2021-08-01 15:35 | P.PN ---
Subjective Progress Note Date: 08/01/21 Patient is a 75 -year-old pleasant male was transferred from a outside hospital for atrial fibrillation with rapid ventricular rate. Patient is presently on therapeutic dose of Lovenox. Also has highly elevated INR. His baseline creatinine is unknown but his present creatinine is around the 0.66, patient is receiving half-normal saline at 75 mL per hour patient is also on Remdesivir, presently on 15 L of oxygen, CT of the chest did not show any pulmonary embolism but did show diffuse infiltrate patient was having symptoms for about 4 days patient was unable to provide much of history to me patient is too tired and weak. Patient is not tolerating any by mouth medications at this time because of which patient was started on IV Cardizem patient usually takes metoprolol 25 twice a day. Patient doesn't have any history of congestive heart failure. Patient was started on Decadron as well. Patient has highly elevated d-dimer. 08/01/2021 Patient is seen in follow-up continues to be closely monitored in the ICU. Patient is extremely lethargic although is arousable and intermittently resp onding appropriately to questions and commands. Patient continues to have delayed response and altered mental status and CT of the brain was ordered. Neurology has been consulted and pulmonary along with urology following closely. She continues on IV heparin along with IV Cardizem. white blood count is 14.1, hemoglobin is stable at 16.1, d-dimer is above 34.10, sodium is 141 with a potassium of 4.5 and current creatinine is 0.61. LDH is 30-55 and CRP is 6.3. TSH is 0.112 and free T4 is 4.06. patient is maintained on 15 L high flow nasal cannula along with occasional intermittent nonrebreather. Patient is afebrile. REVIEW OF SYSTEMS: Unable to obtain much of review of systems because of his clinical condition rest of the review of systems are negative except those mentioned above in HPI. PHYSICAL EXAMINATION: GENERAL: The patient is alert and oriented x2-3 extremely lethargic and fatigues easily and falls back asleep. Well developed, well nourished. HEENT: Pupils are round and equally reacting to light. EOMI. No scleral icterus. No conjunctival pallor. Normocephalic, atraumatic. No pharyngeal erythema. No thyromegaly. CARDIOVASCULAR: S1 and S2 present. No murmurs, rubs, or gallops. Tachycardic irregularly irregular rhythm PULMONARY: Diffuse bilateral crackles and coarse rhonchi noted with diminished breath sounds at the bases ABDOMEN: Soft, nontender, nondistended, normoactive bowel sounds. No palpable organomegaly. MUSCULOSKELETAL: No joint swelling or deformity. EXTREMITIES: No cyanosis, clubbing, or pedal edema. NEUROLOGICAL: Gross neurological examination did not reveal any focal deficits. SKIN: No rashes. Assessment and plan: -Covid 19 pneumonia: Patient will be continued on Baricitinib, IV dexamethasone, zinc, and vitamin supplements, and patient is maintained on IV heparin -Atrial fibrillation with rapid ventricular rate new onset continue with Lovenox, continue with IV Cardizem, Cardiology following -elevated d-dimer with no evidence of PE on CTA, maintained on IV heparin and will continue -possible hyperthyroidism with a TSH of 0.112 and a free T4 4.06 -altered mental status possibly secondary to COVID-19 pneumonia with acute hypoxic respiratory failure -Type 2 diabetes mellitus, uncontrolled with elevated blood sugars and also poss ibly secondary to systemic steroids. We'll continue sliding scale and long- acting and recommended Accu-Cheks before meals and at bedtime -Hyperlipidemia -Hypertension -DVT prophylaxis: Lovenox as mentioned above -full code Plan: Patient to continue on current medications and is maintained on IV Cardizem along with IV heparin and will continue. Multiple medical consultations including pulmonary and cardiology following closely. Neurology has been consulted. CT of the brain was done showing abnormal areas of attenuation within the right cerebellum that may reflect vascular insult however underlying lesions or necroticand recommending MRI. There is no evidence of intracranial hemorrhage or sulcal effacement. will discuss further with neurology about the possibility of MRI. patient is waking up intermittently with extreme fatigue and lethargy and falling asleep very easily but responding appropriately to questions and commands when briefly awake. Objective - Vital Signs Vital signs: Vital Signs Temp 97.3 F L 08/01/21 04:00 Pulse 83 08/01/21 07:00 Resp 22 08/01/21 07:00 BP 127/71 08/01/21 07:00 Pulse Ox 96 08/01/21 07:00 Intake & Output 07/31/21 08/01/21 08/01/21 18:59 06:59 18:59 Intake Total 1588.4 1168.468 Output Total 1930 770 Balance -341.6 398.468 Weight 46 kg 62.5 kg Intake: IV 420 1040 Diltiazem 125 mg In 25 65 Sodium Chloride 0.9% 100 ml @ 5 MG/HR 5 mls/hr IV .Q24H [facility] Rx#:[id number] FLUSH 20 Sodium Chloride 0.45% 1, 375 975 000 ml @ 75 mls/hr IV . [id number] [facility] Rx#:[id number] Intake, IV Titration 1168.4 128.468 Amount Diltiazem 125 mg In 100.5 Sodium Chloride 0.9% 100 ml @ 5 MG/HR 5 mls/hr IV .Q24H [facility] Rx#:[id number] Heparin Sod,Pork in 0.45% 18.4 27.968 NaCl 25,000 unit In 0.45 % NaCl 1 250ml.bag @ 12 UNITS/KG/HR 5.52 mls/hr IV .Q24H [facility] Rx#: [id number] Remdesivir 100 mg In 250 Sodium Chloride 0.9% 250 ml @ 250 mls/hr IVPB Q24H [facility] Rx#:[id number] Sodium Chloride 0.9% 1, 900 000 ml @ 75 mls/hr IV . [id number] [facility] Rx#:[id number] Oral 0 Output: Urine 1930 770 Uretheral ([place]) 1200 Other: Voiding Method Indwelling Catheter Indwelling Catheter - Labs CBC & Chem 7: 08/01/21 04:47 08/01/21 04:53 Labs: Abnormal Lab Results - Last 24 Hours (Table) 07/30/21 07/31/21 07/31/21 Range/Units 21:40 07:54 07:54 WBC 16.1 H (3.8-10.6) k/uL Neutrophils # 15.2 H (1.3-7.7) k/uL Lymphocytes # 0.5 L (1.0-4.8) k/uL APTT (22.0-30.0) sec D-Dimer (<0.60) mg/L FEU Chloride (98-107) mmol/L Carbon Dioxide (22-30) mmol/L BUN (9-20) mg/dL Creatinine (0.66-1.25) mg/dL Glucose (74-99) mg/dL POC Glucose (mg/dL) (75-99) mg/dL Hemoglobin A1c 9.2 H (4.0-6.0) % Calcium (8.4-10.2) mg/dL Ferritin 1402.8 H (22.0-322.0) ng/mL Lactate Dehydrogenase (313-618) U/L C-Reactive Protein (<1.0) mg/dL 07/31/21 07/31/21 07/31/21 Range/Units 12:05 19:01 20:10 WBC (3.8-10.6) k/uL Neutrophils # (1.3-7.7) k/uL Lymphocytes # (1.0-4.8) k/uL APTT 42.6 H (22.0-30.0) sec D-Dimer (<0.60) mg/L FEU Chloride (98-107) mmol/L Carbon Dioxide (22-30) mmol/L BUN (9-20) mg/dL Creatinine (0.66-1.25) mg/dL Glucose (74-99) mg/dL POC Glucose (mg/dL) 206 H 222 H (75-99) mg/dL Hemoglobin A1c (4.0-6.0) % Calcium (8.4-10.2) mg/dL Ferritin (22.0-322.0) ng/mL Lactate Dehydrogenase (313-618) U/L C-Reactive Protein (<1.0) mg/dL 07/31/21 08/01/21 08/01/21 Range/Units 20:21 00:13 04:47 WBC (3.8-10.6) k/uL Neutrophils # (1.3-7.7) k/uL Lymphocytes # (1.0-4.8) k/uL APTT 47.4 H (22.0-30.0) sec D-Dimer >34.10 H (<0.60) mg/L FEU Chloride (98-107) mmol/L Carbon Dioxide (22-30) mmol/L BUN (9-20) mg/dL Creatinine (0.66-1.25) mg/dL Glucose (74-99) mg/dL POC Glucose (mg/dL) 198 H 177 H (75-99) mg/dL Hemoglobin A1c (4.0-6.0) % Calcium (8.4-10.2) mg/dL Ferritin (22.0-322.0) ng/mL Lactate Dehydrogenase (313-618) U/L C-Reactive Protein (<1.0) mg/dL 08/01/21 08/01/21 08/01/21 Range/Units 04:47 04:53 05:47 WBC 14.1 H (3.8-10.6) k/uL Neutrophils # (1.3-7.7) k/uL Lymphocytes # (1.0-4.8) k/uL APTT (22.0-30.0) sec D-Dimer (<0.60) mg/L FEU Chloride 112 H (98-107) mmol/L Carbon Dioxide 21 L (22-30) mmol/L BUN 31 H (9-20) mg/dL Creatinine 0.61 L (0.66-1.25) mg/dL Glucose 161 H (74-99) mg/dL POC Glucose (mg/dL) 135 H (75-99) mg/dL Hemoglobin A1c (4.0-6.0) % Calcium 8.0 L (8.4-10.2) mg/dL Ferritin (22.0-322.0) ng/mL Lactate Dehydrogenase 3255 H (313-618) U/L C-Reactive Protein 6.3 H (<1.0) mg/dL
[2021-08-01] MEDS: ASCORBIC ACID 500 MG TAB PO SCH (16:04)
[2021-08-01] MEDS: ZINC SULFATE 220 MG CAP PO SCH (16:04)
[2021-08-01] MEDS: CHOLECALCIFEROL 10 MCG (400 IU) TABLET PO SCH (16:05)
[2021-08-01] MEDS: BARICITINIB 2 MG TABLET PO SCH (16:05)
[2021-08-01] MEDS: METOPROLOL TARTRATE 25 MG TAB PO SCH ×2 (16:05→20:28)
[2021-08-01] MEDS: CLOPIDOGREL 75 MG TAB PO SCH (16:05)
[2021-08-01] MEDS: SODIUM CHLORIDE 0.45% 1,000 ML IV SCH ×2 (16:06→20:29)
[2021-08-01 17:53] LABS: Glucose,Whole Blood 160 mg/dL (75-99)
--- NOTE | 2021-08-01 18:05 | PN ---
PROGRESS NOTE DATE OF SERVICE: 08/01/2021 REASON FOR FOLLOWUP: COVID-19 pneumonia. INTERVAL HISTORY: Patient is afebrile. The patient is hemodynamically stable. The patient remains to be sleepy, lethargic and unable to provide any history. No vomiting or diarrhea reported by nursing staff. Currently on high-flow nasal oxygen. PHYSICAL EXAMINATION: Blood pressure 122/73 with a pulse of 80, temperature 97.8. He is 95% on 3 L high-flow nasal oxygen. General description is an elderly male lying in bed in no distress. Respiratory system unlabored breathing, decreased breath sounds in the base. No wheeze. Heart S1-S2 regular rate and rhythm. Abdomen: Soft. No tenderness. LABS: Hemoglobin 16.1, white count 14.1. BUN of 31, creatinine 0.61. Still has significant elevated LDH. CRP 6.3. DIAGNOSTIC IMPRESSION AND PLAN: Patient with acute COVID-19 pneumonia, for which the patient is currently on dexamethasone, heparin, zinc and ascorbic acid to continue, while monitoring clinical course closely. Continue supportive care. MMODL / IJN: [id number] / ELENA
[2021-08-01 20:27] LABS: Glucose,Whole Blood 159 mg/dL (75-99)
[2021-08-01] MEDS: HEPARIN SOD,PORK IN 0.45% NACL 25,000 UNIT in 0.45% NACL 1 250ML.BAG IV SCH (20:27)
[2021-08-01] MEDS: INSULIN DETEMIR (LEVEMIR) 100 UNIT/ML SYR SQ SCH (20:28)
[2021-08-01] MEDS ORDERED: ATORVASTATIN 20 MG TAB PO SCH (21:00)
--- NOTE | 2021-08-01 21:02 | US ---
EXAMINATION TYPE: US carotid duplex BILAT DATE OF EXAM: 08/01/2021 COMPARISON: CT Angio 12/04/2019 CLINICAL HISTORY: stroke. EXAM MEASUREMENTS: RIGHT: Peak Systolic Velocity (PSV) cm/sec ----- Right CCA: 38.3 ----- Right ICA: 54.9 ----- Right ECA: 47.0 ICA/CCA ratio: 1.4 RIGHT: End Diastole cm/sec ----- Right CCA: 6.0 ----- Right ICA: 9.5 ----- Right ECA: 0.0 LEFT: Peak Systolic Velocity (PSV) cm/sec ----- Left CCA: 64.7 ----- Left ICA: 65.1 ----- Left ECA: 45.3 ICA/CCA ratio: 1.0 LEFT: End Diastole cm/sec ----- Left CCA: 4.5 ----- Left ICA: 9.0 ----- Left ECA: 0.0 VERTEBRALS (direction of flow): Right Vertebral: Antegrade Left Vertebral: Antegrade Rhythm: Normal Moderate amount of plaque visualized bilateral bulbs. No elevated velocities IMPRESSION: There is antegrade flow in the vertebral arteries. The images and measurements suggest 35% stenosis i n both internal carotid arteries. Criteria for Assigning % of Stenosis / Diameter reduction (Estimation based on the indirect measurements of the internal carotid artery velocities (ICA PSV). 1. Normal (no stenosis)=ICA PSV < 125 cm/s: ratio < 2.0: ICA EDV<40 cm/s. 2. Less than 50% stenosis=ICA PSV < 125 cm/s: ratio < 2.0: ICA EDV<40 cm/s. 3. 50 to 69% stenosis=ICA PSV of 125 to 230 cm/s: ration 2.0 ? 4.0: ICA EDV 40-100 cm/s. 4. Greater than 70% stenosis to near occlusion= ICA PSV > 230 cm/s: ratio > 4.0: ICA EDV > 100 cm/s. 5. Near occlusion= ICA PSV velocities may be low or undetectable: variable ratio and ICA EDV. 6. Total occlusion=unable to detect flow.
[2021-08-02] LABS: Glucose,Whole Blood 141 mg/dL (75-99)
[2021-08-02] MEDS: INSULIN ASPART (NovoLOG) 100 UNIT/ML VIAL SQ SCH ×5 (00:12→23:56)
[2021-08-02] MEDS: DILTIAZEM 125 MG in SODIUM CHLORIDE 0.9% 100 ML IV SCH (03:27)
[2021-08-02 04:19] LABS: Basophils % (A) 0 %; Eosinophils % (A) 0 %; HCT 48.9 % (39.0-53.0); HGB 15.1 gm/dL (13.0-17.5); Lymphocytes # (A) 0.7 k/uL (1.0-4.8); Lymphocytes % (A) 5 %; MCH 27.6 pg (25.0-35.0); MCHC 30.9 g/dL (31.0-37.0); MCV 89.2 fL (80.0-100.0); Mean Platelet Volume 8.9; Monocytes # (A) 0.3 k/uL (0-1.0); Monocytes % (A) 2 %; Neutrophils # (A) 13.9 k/uL (1.3-7.7); Neutrophils % (A) 93 %; Platelet Count 216 k/uL (150-450); RBC 5.48 m/uL (4.30-5.90); RDW 13.8 % (11.5-15.5)
[2021-08-02 04:35] LABS: ALT 77 U/L (4-49); AST 115 U/L (17-59); African American GFR (CKD) >90 (>60 ml/min/1.73 sqM); Albumin 2.5 g/dL (3.5-5.0); Alkaline Phosphatase 151 U/L (38-126); Anion Gap 7 mmol/L; Blood Urea Nitrogen 32 mg/dL (9-20); Calcium 7.9 mg/dL (8.4-10.2); Carbon Dioxide 21 mmol/L (22-30); Chloride 111 mmol/L (98-107); Glucose 146 mg/dL (74-99); Non-African American GFR(CKD) >90 (>60 ml/min/1.73 sqM); Potassium 4.3 mmol/L (3.5-5.1); Sodium 139 mmol/L (137-145); Total Bilirubin 1.3 mg/dL (0.2-1.3); Total Protein 5.6 g/dL (6.3-8.2)
[2021-08-02] MEDS: HEPARIN SODIUM 1,000 UN/ML (10ML VL) IV PRN (04:40)
[2021-08-02 06:21] LABS: Glucose,Whole Blood 121 mg/dL (75-99)
--- NOTE | 2021-08-02 07:11 | XR ---
EXAMINATION TYPE: XR chest 1V portable DATE OF EXAM: 08/02/2021 HISTORY: Shortness of breath. COMPARISON: 08/01/2021 TECHNIQUE: Single view of the chest is submitted. FINDINGS: Demonstrated are scattered senescent parenchymal change. Peripheral infiltrates bilaterally persist without significant interval change. Air bronchograms left lower lobe. The heart is stable. Hilar and mediastinal structures are within normal limits. Degenerative changes are seen of the dorsal spine. IMPRESSION: 1. Stable features of Covid 19 pneumonia.
--- NOTE | 2021-08-02 09:39 | P.PN ---
Subjective Progress Note Date: 08/02/21 08/02/2021, the patient remains awake. He mostly sleeps and he remains quite lethargic. He is unresponsive. I was concerned about his mental status. Neurology consultation was obtained yesterday. CAT scan of the brain was done that showed no acute abnormalities. Nevertheless, there was an abnormal area of attenuation within the right cerebellar which potentially could reflect vascular insult. MRI was recommended. MRI is also in progress. Doppler of the carotids showed no significant stenosis in the carotid arteries bilaterally. There was 35% stenosis in both internal carotid arteries. EEG was also done that showed no evidence of any active seizures. Neurologist on the case. Meanwhile, from the pulmonary standpoint, the patient remains on a 13 L of oxygen high flow and he was taken off the 100% nonrebreather facemask. Is able to maintain a saturation above 90%. The chest x-ray from today is showing bilateral pulmonary infiltrates consistent with COVID-19 related pneumonia. Compared to yesterday's chest x-ray, the patient continues to have extensive infiltration of the pe ripheries bilaterally, without any major significant interval change in terms of his chest x-ray findings. He remains on Decadron. He is receiving 6 mg IV every 24 hours. He is also on Baricitinib. In terms of his inflammatory markers there were elevated and the results are still pending for now. For instance, the LDH level from yesterday was 3255. His d-dimer from yesterday was also 34.1. Note that the patient is still in atrial fibrillation. His rate is controlled. He remains on Cardizem at 5 mg an hour and also on anticoagulation with heparin drip. Blood sugar control is with Levemir insulin at a dose of 10 units at bedtime in addition to a insulin sliding scale coverage. In terms of his general blood work from today, the patient has a white cell count of 15 with a hemoglobin of 15.1. He also developed a 16. Renal function stable with a creatinine of 0.6. Bicarb level is at 21. He does have mild transaminitis with an AST and ALP of 7751 respectively. Echocardiogram was done earlier and it showed an ejection fraction that was essentially normal at 55%. There was mod erate concentric left ventricular hypertrophy. His neurologic exam is nonfocal as stated. Objective - Vital Signs Vital signs: Vital Signs Temp 97.2 F L 08/02/21 04:00 Pulse 85 08/02/21 07:00 Resp 18 08/02/21 07:00 BP 133/83 08/02/21 07:00 Pulse Ox 92 L 08/02/21 07:00 Intake & Output 08/01/21 08/02/21 08/02/21 18:59 06:59 18:59 Intake Total 825 1271.443 80 Output Total 705 425 30 Balance 120 846.443 50 Weight 62.1 kg Intake: IV 825 960 80 Diltiazem 125 mg In 60 5 Sodium Chloride 0.9% 100 ml @ 5 MG/HR 5 mls/hr IV .Q24H [facility] Rx#:[id number] Sodium Chloride 0.45% 1, 825 900 75 000 ml @ 75 mls/hr IV . [id number] [facility] Rx#:[id number] Intake, IV Titration 311.443 Amount Diltiazem 125 mg In 108.583 Sodium Chloride 0.9% 100 ml @ 5 MG/HR 5 mls/hr IV .Q24H [facility] Rx#:[id number] Heparin Sod,Pork in 0.45% 202.860 NaCl 25,000 unit In 0.45 % NaCl 1 250ml.bag @ 12 UNITS/KG/HR 5.52 mls/hr IV .Q24H [facility] Rx#: [id number] Oral 0 Output: Urine 705 425 30 Other: Voiding Method Indwelling Catheter Indwelling Catheter - Exam Lethargic, calm, comfortable, no agitation, sleepy, his breathing is not lab ored. At times, he gets restless according nursing staff. At time of my evaluation, he looked to be quiet comfortable. Currently off of 13 L high flow and he was taken off the nonrebreather mask. Head exam was generally normal. There was no scleral icterus or corneal arcus. Mucous membranes were moist. HEENT: Pupils are round and equally reacting to light. EOMI. No scleral icterus. No conjunctival pallor. Normocephalic, atraumatic. No pharyngeal erythema. No thyromegaly. CARDIOVASCULAR: S1 and S2 present. No murmurs, rubs, or gallops. Tachycardic irregularly irregular rhythm PULMONARY: Diffuse bilateral crackles ABDOMEN: Soft, nontender, nondistended, normoactive bowel sounds. No palpable organomegaly. MUSCULOSKELETAL: No joint swelling or deformity. EXTREMITIES: No cyanosis, clubbing, or pedal edema. NEUROLOGICAL: Gross neurological examination Normal. He is arousable, extremely lethargic, is not following any commands. He is moving all 4 extremities to deep painful stimulation. SKIN: No rashes. - Labs CBC & Chem 7: 08/02/21 03:53 08/02/21 03:53 Labs: Abnormal Lab Results - Last 24 Hours (Table) 08/01/21 08/01/21 08/01/21 Range/Units 04:53 17:33 20:25 WBC (3.8-10.6) k/uL MCHC (31.0-37.0) g/dL Neutrophils # (1.3-7.7) k/uL Lymphocytes # (1.0-4.8) k/uL APTT (22.0-30.0) sec Chloride (98-107) mmol/L Carbon Dioxide (22-30) mmol/L BUN (9-20) mg/dL Glucose (74-99) mg/dL POC Glucose (mg/dL) 160 H 159 H (75-99) mg/dL Calcium (8.4-10.2) mg/dL AST (17-59) U/L ALT (4-49) U/L Alkaline Phosphatase (38-126) U/L Total Protein (6.3-8.2) g/dL Albumin (3.5-5.0) g/dL TSH 0.112 L (0.465-4.680) mIU/L Free T4 4.06 H (0.78-2.19) ng/dL 08/01/21 08/02/21 08/02/21 Range/Units 23:59 03:53 03:53 WBC 15.0 H (3.8-10.6) k/uL MCHC 30.9 L (31.0-37.0) g/dL Neutrophils # 13.9 H (1.3-7.7) k/uL Lymphocytes # 0.7 L (1.0-4.8) k/uL APTT (22.0-30.0) sec Chloride 111 H (98-107) mmol/L Carbon Dioxide 21 L (22-30) mmol/L BUN 32 H (9-20) mg/dL Glucose 146 H (74-99) mg/dL POC Glucose (mg/dL) 141 H (75-99) mg/dL Calcium 7.9 L (8.4-10.2) mg/dL AST 115 H (17-59) U/L ALT 77 H (4-49) U/L Alkaline Phosphatase 151 H (38-126) U/L Total Protein 5.6 L (6.3-8.2) g/dL Albumin 2.5 L (3.5-5.0) g/dL TSH (0.465-4.680) mIU/L Free T4 (0.78-2.19) ng/dL 08/02/21 08/02/21 Range/Units 03:53 06:20 WBC (3.8-10.6) k/uL MCHC (31.0-37.0) g/dL Neutrophils # (1.3-7.7) k/uL Lymphocytes # (1.0-4.8) k/uL APTT 43.3 H (22.0-30.0) sec Chloride (98-107) mmol/L Carbon Dioxide (22-30) mmol/L BUN (9-20) mg/dL Glucose (74-99) mg/dL POC Glucose (mg/dL) 121 H (75-99) mg/dL Calcium (8.4-10.2) mg/dL AST (17-59) U/L ALT (4-49) U/L Alkaline Phosphatase (38-126) U/L Total Protein (6.3-8.2) g/dL Albumin (3.5-5.0) g/dL TSH (0.465-4.680) mIU/L Free T4 (0.78-2.19) ng/dL Assessment and Plan Plan: 1 COVID-19 related pneumonia with secondary hypoxic respiratory failure. Patient was found to be symptomatic approximately a week ago and his condition has progressed significantly and currently is on high flow oxygen at 13 L, clin ically unchanged and the patient's chest x-ray from today is showing bilateral pulmonary infiltrates, diffuse consistent with COVID-19 related pneumonia and overall oxygenation status has remained unchanged . Breathing is non labored. No interval decompensation or worsening in the respiratory status compared to yesterday. The chest x-ray remains relatively unchanged compared to yesterday. There is obvious worsening pulsation on the left compared to the right, essentially a peripheral infiltration. Patient remains on steroids. The patient is on Decadron and baricitinib was also initiated yesterday. Awaiting pro calcitonin level. No signs of infection. White cell count is 15. 2 acute hypoxic respiratory failure secondary to above, currently on 13 L about 2 by nasal cannula 3 altered mentation with diminished level of consciousness likely secondary to COVID-19 related encephalopathy. His neurologic exam is nonfocal, questionable vascular insult at the level of the right cerebellum, awaiting MRI of the brain. In my judgment, the presentation is most typical with COVID-19 related encephalopathy. 4 mild leukocytosis with a white cell count of 15 5 elevated inflammatory markers secondary to above 6 non-anion gap metabolic acidosis, recovered 7 diabetes mellitus 8 hypertension 9 hyperlipidemia 10 new onset atrial fibrillation with rapid ventricular response and the patient is currently on a Cardizem drip at 5 mg an hour, the patient is also on IV heparin Plan Follow-up MRI of the brain Speech to evaluate a bedside swallow Awaiting pro calcitonin level Continue Decadron and Baricitinib regarding his COVID-19 related pneumonia, Insulin sliding scale coverage in addition to Levemir insulin dose to be adjusted in the intensive care unit based on his blood sugar control IV heparin regarding his atrial fibrillation, switched Eliquis 5 mg by mouth daily as long as the patient is able to swallow echocardiogram noted Doppler of LE was negative for any DVTs Carotid Dopplers was noted and it was consistent with nonocclusive disease condition is critical and the patient will be transferred to the intensive care unit. Critical care min, >30 min Time with Patient: Greater than 30
[2021-08-02] MEDS ORDERED: APIXABAN 5 MG TAB PO SCH (09:45)
--- NOTE | 2021-08-02 10:32 | MR ---
EXAMINATION TYPE: MR brain wo/w con DATE OF EXAM: 08/02/2021 COMPARISON: CT brain 08/01/2021 HISTORY: cerebellar stroke. COVID 19 TECHNIQUE: Multiplanar, multisequence images of the brain and brainstem is performed without and with IV contras t, utilizing 6 mL intravenous Gadavist . FINDINGS: Diffusion weighted images demonstrate restricted diffusion in the inferior cerebellar hemis pheres bilaterally, scattered areas of restricted diffusion present in the cerebellum, occipital lobe s are noted bilaterally as well as the bilateral parietal lobes, corresponding hyperintensity noted a nd appears recovery T2-weighted sequences. Encephalomalacia is noted within the region of the thalam us on the right likely due to chronic vascular insult. There is no extra-axial fluid collection. Con fluent hyperintensity, scattered areas of hyperintensity present in the pericallosal, periventricular and subcortical white matter on inversion recovery T2-weighted sequences likely related to chronic s mall vessel ischemic changes are also noted. The ventricular system and cisternal spaces are normal i n size and appearance. The brain volume is age appropriate. Midline structures demonstrate normal morphology. The craniocervical junction appears within normal limits. Post contrast images demonstrate no abnormal enhancement. The dural venous sinuses appear pa tent. The visualized sinuses are remarkable for inflammatory change in the ethmoid air cells, maxilla ry sinus right greater than left and the globes are intact. IMPRESSION: Diffuse scattered areas of restricted diffusion, correlate for embolic phenomenon
--- NOTE | 2021-08-02 10:48 | EEG ---
ELECTROENCEPHALOGRAM REPORT DATE OF SERVICE: 08/02/2021. CLINICAL HISTORY: This is a 75-year-old gentleman who has COVID-19 pneumonia and has altered mental status. This video EEG is obtained to evaluate for seizure and epileptiform activity. RELEVANT MEDICATION: The patient is not on any antiepileptic drugs. EEG TYPE: A routine 21-channel EEG is performed with video using the 10/20 electrode placement system. DESCRIPTION: Awake state is obtained. During awake state, the background consists of diffuse, low to moderate voltage of 1.5 to 2.5 nonrhythmic delta activity and sometimes the background consists of diffuse nonrhythmic theta activity. There is no physiological sleep architecture seen. There is no focal slowing seen. Interictal and ictal is none. ACTIVATION PROCEDURE: Photic stimulation and hyperventilation are not performed. CLINICAL INTERPRETATION: This is an abnormal routine EEG. The background slowing is suggestive of moderate to severe encephalopathy. There are no focal slowing, epileptiform discharges or seizure on the EEG. Clinical correlation is recommended. MMROBERTO / DAYANAN: [id number] / ELENA
[2021-08-02] MEDS: ZINC SULFATE 220 MG CAP PO SCH (10:54)
[2021-08-02] MEDS: DEXAMETHASONE SOD PHOSPHATE 10 MG/ML 1 ML VIAL IV SCH (10:54)
[2021-08-02] MEDS: ASCORBIC ACID 500 MG TAB PO SCH (10:55)
[2021-08-02] MEDS: CHOLECALCIFEROL 10 MCG (400 IU) TABLET PO SCH (10:55)
[2021-08-02] MEDS: CLOPIDOGREL 75 MG TAB PO SCH (10:55)
[2021-08-02] MEDS: BARICITINIB 2 MG TABLET PO SCH (10:55)
[2021-08-02] MEDS: METOPROLOL TARTRATE 25 MG TAB PO SCH ×2 (10:55→19:40)
[2021-08-02 11:30] LABS: Glucose,Whole Blood 88 mg/dL (75-99)
[2021-08-02] MEDS ORDERED: ASPIRIN 325 MG TAB PO SCH (12:30)
--- NOTE | 2021-08-02 12:46 | P.PN ---
Subjective Progress Note Date: 08/02/21 The patient is seen at bedside and the per the patient nurse his mentation is improving compared to yesterday. CT of the head performed on 07/24/2021 is reported as abnormal area of attenuation within the right cerebellum may reflect vascular insult however underlying lesion or necrotic. Correlate with MRI. Yesterday the patient was on heparin drip and was started on Eliquis today by the ICU team. I spoke with his via phone and she stated that patient had history of old stroke 11/2019 (thinks basal ganglia but did not know what side) and TIA 01/2020 without residual weakness or focalityPer the he was on atorvastatin 20mg daily and was on Plavix 75mg daily. Patient follows-up with [facility]. Objective - Vital Signs Vital signs: Vital Signs Temp 98.0 F 08/02/21 08:00 Pulse 93 08/02/21 10:00 Resp 31 H 08/02/21 10:00 BP 132/78 08/02/21 10:00 Pulse Ox 86 L 08/02/21 10:00 Intake & Output 08/01/21 08/02/21 08/02/21 18:59 06:59 18:59 Intake Total 825 1271.443 305 Output Total 705 425 145 Balance 120 846.443 160 Weight 62.1 kg Intake: IV 825 960 305 Diltiazem 125 mg In 60 5 Sodium Chloride 0.9% 100 ml @ 5 MG/HR 5 mls/hr IV .Q24H [facility] Rx#:[id number] Sodium Chloride 0.45% 1, 825 900 300 000 ml @ 75 mls/hr IV . [id number] [facility] Rx#:[id number] Intake, IV Titration 311.443 Amount Diltiazem 125 mg In 108.583 Sodium Chloride 0.9% 100 ml @ 5 MG/HR 5 mls/hr IV .Q24H [facility] Rx#:[id number] Heparin Sod,Pork in 0.45% 202.860 NaCl 25,000 unit In 0.45 % NaCl 1 250ml.bag @ 12 UNITS/KG/HR 5.52 mls/hr IV .Q24H [facility] Rx#: [id number] Oral 0 Output: Urine 705 425 145 Other: Voiding Method Indwelling Catheter Indwelling Catheter Indwelling Catheter - Exam GENERAL: The patient is lying in bed and is not in acute distress. No carotid bruit bilaterally. NEUROLOGICAL: Higher mental function: The patient is awake, alert, oriented to self and place. He stated the year is 1990. He is able to name objects correctly (pen, watch and glasses). He is following simple commands. No neglect. Cranial nerves: The pupils are round, equal and reactive to light. VFF are full to confrontation. EOM is intact and no nystagmus. Normal facial sensation. No facial weakness noted. No dysarthria is noted. Tongue is midline and move side to side. Motor: Gait is deferred. The strength is lifting all extremities above gravity without focality (is 5/5 over uppers and lowers appears 5-). Normal bulk and but decrease tone throughout.. Cerebellum: Normal finger to nose bilaterally. Sensation: Normal. Reflexes (right/left): 1+ throughout. Plantars are downgoing bilaterally. WORK-UP: * CT of the head performed on 07/24/2021 is reported as abnormal area of attenuation within the right cerebellum may reflect vascular insult however underlying lesion or necrotic. Correlate with MRI. * Carotid duplex is reported as there is antegrade flow in the vertebral arteries. Images and measurements suggest 35% stenosis in both internal carotid arteries. * MRI of the brain report is reported as diffuse scattered area of restricted diffusion, correlate for embolic phenomena. In the body they reported it is reported that the patient has diffusion weighted image demonstrated restricted effusion and inferior cerebellar hemispheres bilaterally, scattered area of restricted diffusion in the cerebellum, occipital lobes are noted bilaterally as well as bilateral parietal. Encephalomalacia was noted in the region of the thalamus over the right likely due to chronic vascular insult. Scattered area of hyperdensity present in that. Colossal, periventricular and subcortical white matter on inversion recovery T2-weighted images are currently related to chronic small vessel ischemic changes also noted. I personally reviewed that MRI the brain and I do agree patient has bilateral hemispheric stroke over the cerebellar occipital region parietal, frontal is seems embolic in nature. * 2-D echo was reported as left ventricle size is normal. Moderate consider Limbitrol hypertrophy. Ejection fraction of 55-60%. Left ventricle filling pressure cannot be at estimated due to 8 atrial fibrillation. * Routine EEG is abnormal. The back or slowing suggestive of moderate to severe encephalopathy. There are no focal slowing, epileptiform discharges or seizure in the EEG. Clinical correlation is recommended. * AST of 115 and ALT of 77 * TSH is 0.112 and the free T4 is 4.06 * Hemoglobin A1c is 9.2 - Labs CBC & Chem 7: 08/02/21 03:53 08/02/21 03:53 Labs: Abnormal Lab Results - Last 24 Hours (Table) 08/01/21 08/01/21 08/01/21 Range/Units 04:53 17:33 20:25 WBC (3.8-10.6) k/uL MCHC (31.0-37.0) g/dL Neutrophils # (1.3-7.7) k/uL Lymphocytes # (1.0-4.8) k/uL APTT (22.0-30.0) sec Chloride (98-107) mmol/L Carbon Dioxide (22-30) mmol/L BUN (9-20) mg/dL Glucose (74-99) mg/dL POC Glucose (mg/dL) 160 H 159 H (75-99) mg/dL Calcium (8.4-10.2) mg/dL AST (17-59) U/L ALT (4-49) U/L Alkaline Phosphatase (38-126) U/L Total Protein (6.3-8.2) g/dL Albumin (3.5-5.0) g/dL TSH 0.112 L (0.465-4.680) mIU/L Free T4 4.06 H (0.78-2.19) ng/dL 08/01/21 08/02/21 08/02/21 Range/Units 23:59 03:53 03:53 WBC 15.0 H (3.8-10.6) k/uL MCHC 30.9 L (31.0-37.0) g/dL Neutrophils # 13.9 H (1.3-7.7) k/uL Lymphocytes # 0.7 L (1.0-4.8) k/uL APTT (22.0-30.0) sec Chloride 111 H (98-107) mmol/L Carbon Dioxide 21 L (22-30) mmol/L BUN 32 H (9-20) mg/dL Glucose 146 H (74-99) mg/dL POC Glucose (mg/dL) 141 H (75-99) mg/dL Calcium 7.9 L (8.4-10.2) mg/dL AST 115 H (17-59) U/L ALT 77 H (4-49) U/L Alkaline Phosphatase 151 H (38-126) U/L Total Protein 5.6 L (6.3-8.2) g/dL Albumin 2.5 L (3.5-5.0) g/dL TSH (0.465-4.680) mIU/L Free T4 (0.78-2.19) ng/dL 08/02/21 08/02/21 Range/Units 03:53 06:20 WBC (3.8-10.6) k/uL MCHC (31.0-37.0) g/dL Neutrophils # (1.3-7.7) k/uL Lymphocytes # (1.0-4.8) k/uL APTT 43.3 H (22.0-30.0) sec Chloride (98-107) mmol/L Carbon Dioxide (22-30) mmol/L BUN (9-20) mg/dL Glucose (74-99) mg/dL POC Glucose (mg/dL) 121 H (75-99) mg/dL Calcium (8.4-10.2) mg/dL AST (17-59) U/L ALT (4-49) U/L Alkaline Phosphatase (38-126) U/L Total Protein (6.3-8.2) g/dL Albumin (3.5-5.0) g/dL TSH (0.465-4.680) mIU/L Free T4 (0.78-2.19) ng/dL Assessment and Plan Assessment: Altered mental status with generalized weakness and dysphagia due to COVID-19 pneumonia with secondary hypoxic respiratory failure.---mentation improving. Acute/subacute bilateral hemisphere stroke. Seems likely embolic in nature (cardioembolic) especially with new onset of atrial fibrillation COVID-19 related pneumonia with secondary hypoxic respiratory failure History of old stroke 11/2019 and TIA 01/2020 without residual weakness or focality New-onset atrial fibrillation currently Diabetes mellitus (recent HbA1c is 9.2) Hypertension Hyperlipidemia Plan: * Because of the bilateral hemispheric stroke and they seem acute to subacute in nature, I had a discussion with the that there is increased risk of a hemorrhagic conversion with anticoagulation (especially with new stroke) at the same time I notified her that without anticoagulation there is also a risk of a stroke. So it was agreed to stop Anticoagulation for 2 days for now and then to restart the patient on Eliquis 5 mg 1 tablet twice a day and his home dose of Plavix 75 mg daily. * I increased his Lipitor from 20 to 40 mg daily at bedtime and if patient has worsening of LFT's will go down on dose. * Ordered CTA of head and neck. * PT, OT and CASKET ASSEMBLER are consulted * Pending lipid panel. * Place the patient on cardiac monitoring * Place the patient on every one hour neuro checks * Cardiology is on board. Recommend transesophageal echocardiogram to rule outs PFO that's large in size as well as left atrial appendage clots. * We'll defer the rest of the medical management to the primary as well as a ICU team. * Upon discharge, the patient needs to follow-up with his neurology team with 1- 2 weeks as outpatient ([facility]). DVT Prophylaxis: Place on subq heparin 5000U every 12 hours (once starts on eliquis stop subq heparin). CONDITION: Is very guarded. The plan was discussed with the patient's in length and ICU team. Kaiser Ochoa M.D. Neuro-hospitalist Time with Patient: Greater than 30
[2021-08-02] MEDS ORDERED: LIDOCAINE 1% INJ 10MG/ML (20 ML MDV) ONE (12:48)
[2021-08-02] MEDS ORDERED: LIDOCAINE 1% INJ 10MG/ML (20 ML MDV) SQ ONE (13:32)
--- NOTE | 2021-08-02 14:16 | XR ---
EXAMINATION TYPE: XR chest 1V portable DATE OF EXAM: 08/02/2021 HISTORY: Shortness of breath. COMPARISON: 08/02/2021 TECHNIQUE: Single view of the chest is submitted. FINDINGS: Demonstrated are scattered senescent parenchymal change. Peripheral infiltrates persist bilaterally. Left-sided PICC line with its distal tip within the right ventricle. The heart is stable. Hilar and mediastinal structures are within normal limits. Degenerative changes are seen of the dorsal spine. IMPRESSION: 1. Peripheral infiltrates persist bilaterally. Left-sided PICC line with its distal tip within the r ight ventricle.
--- NOTE | 2021-08-02 14:20 | XR ---
EXAMINATION TYPE: XR chest 1V portable DATE OF EXAM: 08/02/2021 HISTORY: Shortness of breath. COMPARISON: Same day TECHNIQUE: Single view of the chest is submitted. FINDINGS: Demonstrated are scattered senescent parenchymal change. PICC line has been readjusted with its distal tip overlying the SVC. The tip of the PICC line is note d to curve cranially. No pneumothorax. Bilateral infiltrates persist. The heart is stable. Hilar and mediastinal structures are within normal limits. Degenerative changes are seen of the dorsal spine. IMPRESSION: 1. PICC line has been readjusted with its distal tip overlying the SVC. The tip of the PICC line is noted to curve cranially.No pneumothorax. Bilateral infiltrates persist.
--- NOTE | 2021-08-02 14:34 | IR ---
EXAMINATION TYPE: IR cvc insert >=5 years DATE OF EXAM: 08/02/2021 COMPARISON: NONE HISTORY: Cerebrovascular accident, needs long-term intravenous access for total parenteral nutrition FINDINGS: Maximal barrier technique was utilized. Hand hygiene obtained with soap and water and alco hol-based hand rub. The skin overlying the left brachial vein was localized with ultrasound and noted to be compressible and patent by ultrasound. An ultrasound image was obtained and submitted on ansley ent's chart. Sterile technique utilized with the ultrasound machine. The skin overlying was prepped a nd draped and Lidocaine used for local anesthesia. A skin rené was made with a scalpel. Access was gained to the vein under direct ultrasound guidance with a 21-gauge needle and a 0.018 inch wire was advanced. Access site was dilated with a peel-away sheath and the catheter tailored to length. Cath eter advanced centrally and a post procedure chest x-ray verified placement with tip in the right atr ium, catheter withdrawn 4 cm to the level of the superior vena cava. Catheter was fixed to the skin and a sterile dressing placed. Hemostasis achieved and the catheter was aspirated and flushed with s terile saline. The patient remained in stable condition. IMPRESSION: STATUS POST ULTRASOUND GUIDED PICC LINE PLACEMENT, READY FOR USE. THIS PROCEDURE WAS PER FORMED BY THE UNDERSIGNED.
[2021-08-02] MEDS: HEPARIN SODIUM,PORCINE/PF 5,000 UNIT/0.5 ML SYRINGE SQ SCH ×2 (16:07→19:40)
--- NOTE | 2021-08-02 16:07 | CT ---
EXAMINATION TYPE: CT angio head neck DATE OF EXAM: 08/02/2021 HISTORY: Mental status changes. COMPARISON: 12/04/2019 CT DLP: 522.6 mGycm. Automated Exposure Control for Dose Reduction was Utilized. TECHNIQUE: CTA scan of the neck is performed with IV Contrast, patient injected with 65 mL of Isovue 370, axial images are obtained, coronal and sagittal reformatted images are reviewed. Three-D recons tructed images are created on an independent workstation and reviewed. Source images are reviewed. FINDINGS: Carotid/Vascular Structures: Atheromatous plaquing at the bilateral carotid bifurcations. Plaque in t he left internal carotid artery origin may have some mild narrowing of less than 50%. Significant corie w-limiting stenosis is not identified. No significant stenosis of the right internal carotid artery o rigin is evident. Atheromatous plaquing is present on the right. No significant stenosis of the inter nal carotid artery origins are evident. Internal carotid arteries and vertebral arteries are patent t o the skull base. Cervical of [place]: Vertebral basilar system appears normal. Left vertebral artery is dominant. Poste rior cerebral vasculature is unremarkable. Internal carotid arteries bifurcate normally into A1 and M 1 segments. A2 segments are normal. The anterior communicating artery is patent. Left Posterior commu nicating artery is patent. Right posterior communicating artery is patent. IMPRESSION: 1. Atheromatous plaquing present bilaterally slightly greater on the left. No flow-limiting stenosis bilateral carotid bifurcations. Findings are stable from 12/04/2019. 2. Normal [place] of [place] NASCET criteria was used in interpretation of this exam?
[2021-08-02 19:39] LABS: Glucose,Whole Blood 293 mg/dL (75-99)
[2021-08-02] MEDS: ATORVASTATIN 40 MG TAB PO SCH (19:40)
[2021-08-02] MEDS: TICAGRELOR 90 MG TAB PO SCH (19:40)
[2021-08-02] MEDS: SODIUM CHLORIDE 0.45% 1,000 ML IV SCH ×2 (19:40→23:57)
[2021-08-02] MEDS: INSULIN DETEMIR (LEVEMIR) 100 UNIT/ML SYR SQ SCH (19:59)
[2021-08-02 20:04] LABS: Folate, Serum 5.7 ng/mL (4.40-31.00)
[2021-08-02 20:27] LABS: Chol/HDL Ratio 2.06 Ratio; HDL Cholesterol 46.8 mg/dL (40.00-60.00); LDL Cholesterol,Calculated 28.7 mg/dL (0.0-131.0); VLDL Calculation 20.8 mg/dL (5.00-40.00)
--- NOTE | 2021-08-02 20:58 | P.PN ---
Progress Note - Text Progress Note Date: 08/02/21 REASON FOR FOLLOWUP: COVID-19 pneumonia. INTERVAL HISTORY: Patient remains to be afebrile. The patient is hemodynamically stable. The patient remains to be lethargic and unable to provide any history. No vomiting or diarrhea reported by nursing staff. pt remains to be on high-flow nasal oxygen. PHYSICAL EXAMINATION: Blood pressure 122/73 with a pulse of 80, temperature 97.8. He is 95% on 8 L high-flow nasal oxygen. General description is an elderly male lying in bed in no distress. Respiratory system unlabored breathing, decreased breath sounds in the base. No wheeze. Heart S1-S2 regular rate and rhythm. Abdomen: Soft. No tenderness. LABS: reviewed ,MRI suspicious for embolic phenomenon DIAGNOSTIC IMPRESSION AND PLAN: Patient with acute COVID-19 pneumonia, for which the patient is currently on Baricitinab, dexamethasone, heparin, zinc and ascorbic acid to continue, while monitoring clinical course closely. prognosis guarded
[2021-08-03 00:13] LABS: Glucose,Whole Blood 300 mg/dL (75-99)
[2021-08-03 05:07] LABS: Basophils % (A) 0 %; Eosinophils # (A) 0.1 k/uL (0-0.7); Eosinophils % (A) 1 %; HCT 43.8 % (39.0-53.0); HGB 14.6 gm/dL (13.0-17.5); Lymphocytes # (A) 0.4 k/uL (1.0-4.8); Lymphocytes % (A) 2 %; MCH 28.3 pg (25.0-35.0); MCHC 33.4 g/dL (31.0-37.0); MCV 84.7 fL (80.0-100.0); Mean Platelet Volume 9.1; Monocytes # (A) 0.3 k/uL (0-1.0); Monocytes % (A) 2 %; Neutrophils # (A) 16.7 k/uL (1.3-7.7); Neutrophils % (A) 95 %; Platelet Count 246 k/uL (150-450); RBC 5.17 m/uL (4.30-5.90); RDW 13.9 % (11.5-15.5); WBC 17.6 k/uL (3.8-10.6)
[2021-08-03 05:35] LABS: ALT 73 U/L (4-49); AST 77 U/L (17-59); African American GFR (CKD) >90 (>60 ml/min/1.73 sqM); Albumin 2.5 g/dL (3.5-5.0); Alkaline Phosphatase 175 U/L (38-126); Anion Gap 4 mmol/L; Blood Urea Nitrogen 33 mg/dL (9-20); Calcium 7.8 mg/dL (8.4-10.2); Carbon Dioxide 23 mmol/L (22-30); Chloride 108 mmol/L (98-107); Glucose 182 mg/dL (74-99); Non-African American GFR(CKD) >90 (>60 ml/min/1.73 sqM); Potassium 3.6 mmol/L (3.5-5.1); Sodium 135 mmol/L (137-145); Total Bilirubin 1.2 mg/dL (0.2-1.3); Total Protein 5.4 g/dL (6.3-8.2)
--- NOTE | 2021-08-03 05:58 | P.PN ---
Subjective Progress Note Date: 08/02/21 Patient is a 75 -year-old pleasant male was transferred from a outside hospital for atrial fibrillation with rapid ventricular rate. Patient is presently on therapeutic dose of Lovenox. Also has highly elevated INR. His baseline creatinine is unknown but his present creatinine is around the 0.66, patient is receiving half-normal saline at 75 mL per hour patient is also on Remdesivir, presently on 15 L of oxygen, CT of the chest did not show any pulmonary embolism but did show diffuse infiltrate patient was having symptoms for about 4 days patient was unable to provide much of history to me patient is too tired and weak. Patient is not tolerating any by mouth medications at this time because of which patient was started on IV Cardizem patient usually takes metoprolol 25 twice a day. Patient doesn't have any history of congestive heart failure. Patient was started on Decadron as well. Patient has highly elevated d-dimer. 08/01/2021 Patient is seen in follow-up continues to be closely monitored in the ICU. Patient is extremely lethargic although is arousable and intermittently resp onding appropriately to questions and commands. Patient continues to have delayed response and altered mental status and CT of the brain was ordered. Neurology has been consulted and pulmonary along with urology following closely. She continues on IV heparin along with IV Cardizem. white blood count is 14.1, hemoglobin is stable at 16.1, d-dimer is above 34.10, sodium is 141 with a potassium of 4.5 and current creatinine is 0.61. LDH is 30-55 and CRP is 6.3. TSH is 0.112 and free T4 is 4.06. patient is maintained on 15 L high flow nasal cannula along with occasional intermittent nonrebreather. Patient is afebrile. 08/02/2021 Patient is seen in follow up this morning and is being closely monitored in the ICU with multiple medical consultations following including pulmonary, infectiou s disease, cardiology, and neurology. CT of the brain recommending MRI and this is ordered and pending. Patient is on 13L HF nasal cannula. Mentation slowly improving and answering questions appropriately. Patient continues to be extremely weak and fatigues easily. Cardiology planning to transition cardizem to oral and possibly starting eliquis. REVIEW OF SYSTEMS: Unable to obtain much of review of systems because of his clinical condition Active Medications Acetaminophen (Acetaminophen Tab 325 Mg Tab) 650 mg PO Q4HR PRN PRN Reason: Fever and/ or Pain Hydrocodone Bitart/Acetaminophen (Hydrocodone/Apap 5-325mg 1 Each Tab) 1 each PO Q6HR PRN PRN Reason: Pain Alprazolam (Alprazolam 0.25 Mg Tab) 0.25 mg PO QID PRN PRN Reason: Agitation Ascorbic Acid (Ascorbic Acid 500 Mg Tab) 500 mg PO DAILY [facility] Last Admin: 08/02/21 10:55 Dose: 500 mg Documented by: Aspirin (Aspirin 81 Mg) 81 mg PO DAILY [facility] Atorvastatin Calcium (Atorvastatin 40 Mg Tab) 40 mg PO HS [facility] Last Admin: 08/02/21 19:40 Dose: 40 mg Documented by: Baricitinib (Baricitinib 2 Mg Tablet) 4 mg PO DAILY [facility] Stop: 08/13/21 09:01 Last Admin: 08/02/21 10:55 Dose: 4 mg Documented by: Cholecalciferol (Cholecalciferol 10 Mcg (400 Iu) Tablet) 10 mcg PO DAILY [facility] Last Admin: 08/02/21 10:55 Dose: 10 mcg Documented by: Dexamethasone Sodium Phosphate (Dexamethasone Sod Phosphate 10 Mg/Ml 1 Ml Vial) 6 mg IV DAILY [facility] Last Admin: 08/02/21 10:54 Dose: 6 mg Documented by: Heparin Sodium (Porcine) (Heparin Sodium,Porcine/Pf 5,000 Unit/0.5 Ml Syringe) 5,000 unit SQ Q12HR [facility] Last Admin: 08/02/21 19:40 Dose: 5,000 unit Documented by: Sodium Chloride (Saline 0.45%) 1,000 mls @ 75 mls/hr IV .[id number] [facility] Last Admin: 08/02/21 23:57 Dose: 75 mls/hr Documented by: Insulin Aspart (Insulin Aspart (Novolog) 100 Unit/Ml Vial) 0 unit SQ Q6H [facility]; Protocol Last Admin: 08/02/21 23:56 Dose: 5 unit Documented by: Insulin Detemir (Insulin Detemir (Levemir) 100 Unit/Ml Syr) 10 unit SQ HS [facility] Last Admin: 08/02/21 19:59 Dose: 10 unit Documented by: Metoprolol Tartrate (Metoprolol Tartrate 25 Mg Tab) 25 mg PO BID [facility] Last Admin: 08/02/21 19:40 Dose: 25 mg Documented by: Miscellaneous Information ( Communication To Pharmacy 1 Each Misc) 1 each PO ONCE PRN PRN Reason: See Comments Miscellaneous Information (Rx Info: Iv Contrast Was Given 1 Each Misc) 1 each MISCELLANE DAILY PRN PRN Reason: Per Protocol Stop: 08/03/21 09:18 Sodium Chloride (Sodium Chloride 0.9% Flush 10 Ml Syringe) 10 ml IV Q4HR PRN PRN Reason: PICC Line Sodium Chloride (Sodium Chloride 0.9% Flush 10 Ml Syringe) 10 ml IV WEEKLY [facility] Sodium Chloride (Sodium Chloride 0.9% Flush 10 Ml Syringe) 20 ml IV Q4HR PRN PRN Reason: PICC Line Ticagrelor (Ticagrelor 90 Mg Tab) 90 mg PO BID [facility] Last Admin: 08/02/21 19:40 Dose: 90 mg Documented by: Zinc Sulfate (Zinc Sulfate 220 Mg Cap) 220 mg PO DAILY [facility] Last Admin: 08/02/21 10:54 Dose: 220 mg Documented by: PHYSICAL EXAMINATION: GENERAL: The patient is alert and oriented x2-3 extremely lethargic and fatigues easily and falls back asleep. Well developed, well nourished. HEENT: Pupils are round and equally reacting to light. EOMI. No scleral icterus. No conjunctival pallor. Normocephalic, atraumatic. No pharyngeal erythema. No thyromegaly. CARDIOVASCULAR: S1 and S2 muffled. irregularly irregular rhythm PULMONARY: Diffuse bilateral crackles and coarse rhonchi noted with diminished breath sounds at the bases ABDOMEN: Soft, nontender, nondistended, normoactive bowel sounds. No palpable organomegaly. MUSCULOSKELETAL: No joint swelling or deformity. EXTREMITIES: No cyanosis, clubbing, or pedal edema. NEUROLOGICAL: Gross neurological examination did not reveal any focal deficits. SKIN: No rashes. Assessment and plan: -Covid 19 pneumonia: Patient will be continued on Baricitinib, IV dexamethasone, zinc, and vitamin supplements, and patient is maintained on subcut heparin -Atrial fibrillation with rapid ventricular rate new onset continue with subq heparin, cardiology starting oral Cardizem, Cardiology following -elevated d-dimer with no evidence of PE on CTA, continue with subq heparin and possibly starting eliquis -possible hyperthyroidism with a TSH of 0.112 and a free T4 4.06 -altered mental status possibly secondary to COVID-19 pneumonia with acute hypoxic respiratory failure -Type 2 diabetes mellitus, uncontrolled with elevated blood sugars and also possibly secondary to systemic steroids. We'll continue sliding scale and long- acting and recommended Accu-Cheks before meals and at bedtime -Hyperlipidemia -Hypertension -DVT prophylaxis: subq heparin -full code Plan: Patient to continue on current medications and is being started on oral Cardizem along with sub-q heparin and will continue. Multiple medical consultations including ID, neurology, pulmonary and cardiology following closely. CT of the brain was done showing abnormal areas of attenuation within the right cerebellum that may reflect vascular insult however underlying lesions or necrotic and recommending MRI. MRI pending. There is no evidence of intracranial hemorrhage or sulcal effacement. Patient follows at the [facility] for past medical history of Stroke. Discussed at length with his . Patient continues to be extremely fatigued, but slowly more alert each day. Patient to receive a PICC line for possible nutritional support. Wean FI02 as tolerated. Prognosis is guarded. Objective - Vital Signs Vital signs: Vital Signs Temp 97.2 F L 08/02/21 04:00 Pulse 85 08/02/21 07:00 Resp 18 08/02/21 07:00 BP 133/83 08/02/21 07:00 Pulse Ox 92 L 08/02/21 07:00 Intake & Output 08/01/21 08/02/21 08/02/21 18:59 06:59 18:59 Intake Total 825 1271.443 80 Output Total 705 425 30 Balance 120 846.443 50 Weight 62.1 kg Intake: IV 825 960 80 Diltiazem 125 mg In 60 5 Sodium Chloride 0.9% 100 ml @ 5 MG/HR 5 mls/hr IV .Q24H [facility] Rx#:[id number] Sodium Chloride 0.45% 1, 825 900 75 000 ml @ 75 mls/hr IV . [id number] [facility] Rx#:[id number] Intake, IV Titration 311.443 Amount Diltiazem 125 mg In 108.583 Sodium Chloride 0.9% 100 ml @ 5 MG/HR 5 mls/hr IV .Q24H [facility] Rx#:[id number] Heparin Sod,Pork in 0.45% 202.860 NaCl 25,000 unit In 0.45 % NaCl 1 250ml.bag @ 12 UNITS/KG/HR 5.52 mls/hr IV .Q24H [facility] Rx#: [id number] Oral 0 Output: Urine 705 425 30 Other: Voiding Method Indwelling Catheter Indwelling Catheter - Labs CBC & Chem 7: 08/03/21 04:55 08/03/21 04:55 Labs: Abnormal Lab Results - Last 24 Hours (Table) 08/01/21 08/01/21 08/01/21 Range/Units 04:53 17:33 20:25 WBC (3.8-10.6) k/uL MCHC (31.0-37.0) g/dL Neutrophils # (1.3-7.7) k/uL Lymphocytes # (1.0-4.8) k/uL APTT (22.0-30.0) sec Chloride (98-107) mmol/L Carbon Dioxide (22-30) mmol/L BUN (9-20) mg/dL Glucose (74-99) mg/dL POC Glucose (mg/dL) 160 H 159 H (75-99) mg/dL Calcium (8.4-10.2) mg/dL AST (17-59) U/L ALT (4-49) U/L Alkaline Phosphatase (38-126) U/L Total Protein (6.3-8.2) g/dL Albumin (3.5-5.0) g/dL TSH 0.112 L (0.465-4.680) mIU/L Free T4 4.06 H (0.78-2.19) ng/dL 08/01/21 08/02/21 08/02/21 Range/Units 23:59 03:53 03:53 WBC 15.0 H (3.8-10.6) k/uL MCHC 30.9 L (31.0-37.0) g/dL Neutrophils # 13.9 H (1.3-7.7) k/uL Lymphocytes # 0.7 L (1.0-4.8) k/uL APTT (22.0-30.0) sec Chloride 111 H (98-107) mmol/L Carbon Dioxide 21 L (22-30) mmol/L BUN 32 H (9-20) mg/dL Glucose 146 H (74-99) mg/dL POC Glucose (mg/dL) 141 H (75-99) mg/dL Calcium 7.9 L (8.4-10.2) mg/dL AST 115 H (17-59) U/L ALT 77 H (4-49) U/L Alkaline Phosphatase 151 H (38-126) U/L Total Protein 5.6 L (6.3-8.2) g/dL Albumin 2.5 L (3.5-5.0) g/dL TSH (0.465-4.680) mIU/L Free T4 (0.78-2.19) ng/dL 08/02/21 08/02/21 Range/Units 03:53 06:20 WBC (3.8-10.6) k/uL MCHC (31.0-37.0) g/dL Neutrophils # (1.3-7.7) k/uL Lymphocytes # (1.0-4.8) k/uL APTT 43.3 H (22.0-30.0) sec Chloride (98-107) mmol/L Carbon Dioxide (22-30) mmol/L BUN (9-20) mg/dL Glucose (74-99) mg/dL POC Glucose (mg/dL) 121 H (75-99) mg/dL Calcium (8.4-10.2) mg/dL AST (17-59) U/L ALT (4-49) U/L Alkaline Phosphatase (38-126) U/L Total Protein (6.3-8.2) g/dL Albumin (3.5-5.0) g/dL TSH (0.465-4.680) mIU/L Free T4 (0.78-2.19) ng/dL
[2021-08-03] MEDS ORDERED: Potassium Replacement Protocol 1 EACH MISC MISCELLANE PRN (05:59)
[2021-08-03] MEDS ORDERED: POTASSIUM CHLORIDE ER 20 MEQ TAB.ER PO SCH (06:00)
[2021-08-03 06:07] LABS: Glucose,Whole Blood 164 mg/dL (75-99)
[2021-08-03] MEDS: INSULIN ASPART (NovoLOG) 100 UNIT/ML VIAL SQ SCH ×3 (06:17→18:58)
[2021-08-03] MEDS: ASPIRIN 81 MG PO SCH (08:14)
[2021-08-03] MEDS: ASCORBIC ACID 500 MG TAB PO SCH (08:14)
[2021-08-03] MEDS: CHOLECALCIFEROL 10 MCG (400 IU) TABLET PO SCH (08:14)
[2021-08-03] MEDS: ZINC SULFATE 220 MG CAP PO SCH (08:14)
[2021-08-03] MEDS: DEXAMETHASONE SOD PHOSPHATE 10 MG/ML 1 ML VIAL IV SCH (08:14)
[2021-08-03] MEDS: BARICITINIB 2 MG TABLET PO SCH (08:14)
[2021-08-03] MEDS: METOPROLOL TARTRATE 25 MG TAB PO SCH ×2 (08:15→20:38)
[2021-08-03] MEDS: TICAGRELOR 90 MG TAB PO SCH ×2 (08:15→20:38)
[2021-08-03] MEDS: HEPARIN SODIUM,PORCINE/PF 5,000 UNIT/0.5 ML SYRINGE SQ SCH ×2 (08:15→20:38)
--- NOTE | 2021-08-03 09:13 | XR ---
EXAMINATION TYPE: XR chest 1V portable DATE OF EXAM: 08/03/2021 Comparison: 08/02/2021 Clinical History: 75-year-old male covid Findings: ACF hardware. Left PICC tip within the right atrium. Heart upper limits of normal in size. ADC airspa ce opacity left greater than right periphery of the lungs persists. There may be slight worsening now at the left base. No sizable pleural effusion. Impression: Hazy peripheral COVID pneumonia, left greater than right. There may be slight worsening at the left b ase.
--- NOTE | 2021-08-03 09:26 | P.PN ---
Subjective Progress Note Date: 08/03/21 08/03/2021 , the patient is laying comfortably in bed . Neurologically, he is doing worse compared to yesterday. I saw him yesterday in follow-up and he was much more awake and alert and following commands. This morning, he is quite lethargic, he has a preferential gaze to the right and is always look into the right. He does not open up his eyes spontaneously. He is weak in all 4 extremities. He withdraws to painful stimulation. He does limited amount of communications by answering yes or no. He is obviously lethargic. No facial asymmetry. 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 Hematoma that he was aware that there wasn't 14. Unable to tell no it was in the hospital. Unable to tell me the year or the month. In terms of his COVID-19 related pneumonia, the patient remains on oxygen at 11 L per minute and he is pulse ox is around 90%. His continuing to receive a combination of vitamin C, vitamin D, zinc and he is also on a steroid regimen with Decadron 6 mg IV every 24 hours and the patient is also on Baricitinib. The chest x-ray from today is still showing diffuse fl accid pulmonary infiltrates, findings are essentially stable compared to yesterday. He is afebrile. He was on anticoagulation with IV heparin regarding his chronic atrial fibrillation. Nevertheless, as part of further workup for his altered mentation, the patient underwent a MRI of the brain which was consistent with an embolic phenomena. Specifically, the MRI of the brain showed diffuse scattered areas of restricted diffusion suggestive of an underlying embolic phenomena. Note that the patient was having atrial fibrillation and he was on IV heparin. Due to concern of hemorrhagic transformation, the patient was taken off the IV heparin and the patient is currently on aspirin and Brilin ta and the patient is also on subcu heparin 5000 units every 12 hours. This was done upon request of the neurologist was very much concerned that there may be potentially hemorrhagic transformation. Neurologically, he is doing well. He stable. Hemoglobin 4 extremities. No headaches. No neck stiffness. . Otherwise, the patient is doing well. Blood sugars are under adequate control. His own Levemir insulin at a dose of 10 units along with fine scale insulin coverage. In terms of his blood work, the patient's white cell count is at 17.6 with a hemoglobin of 14.6. The sodium is at 135 with a creatinine of 0.5 and a glucose of 182. The patient also underwent a PICC line insertion and his left upper extremity and this was inserted yesterday by interventional radiology without any major difficulties. Hogan catheter is in place. Cardiac rhythm is atrial fibrillation with a controlled rate. His most recent inflammatory markers included an LDH level of 3255 from 07/24/2021 and this needs to be repeated. Objective - Vital Signs Vital signs: Vital Signs Temp 97.2 F L 08/03/21 04:00 Pulse 77 08/03/21 07:00 Resp 21 08/03/21 07:00 BP 152/84 08/03/21 07:00 Pulse Ox 95 08/03/21 07:00 Intake & Output 08/02/21 08/03/21 08/03/21 18:59 06:59 18:59 Intake Total 1220 825 75 Output Total 540 960 110 Balance 680 -135 -35 Weight 60.4 kg Intake: IV 980 825 75 Diltiazem 125 mg In 5 Sodium Chloride 0.9% 100 ml @ 5 MG/HR 5 mls/hr IV .Q24H [facility] Rx#:[id number] Sodium Chloride 0.45% 1, 975 825 75 000 ml @ 75 mls/hr IV . [id number] [facility] Rx#:[id number] Oral 240 Output: Urine 540 960 110 Other: Voiding Method Indwelling Catheter Indwelling Catheter - Exam Lethargic, calm, comfortable, no agitation, sleepy, his breathing is not labored. Currently off of 11 L high flow and he was taken off the nonrebreather mask. Head exam was generally normal. There was no scleral icterus or corneal arcus. Mucous membranes were moist. HEENT: Pupils are round and equally reacting to light. EOMI. No scleral icterus. No conjunctival pallor. Normocephalic, atraumatic. No pharyngeal erythema. No thyromegaly. CARDIOVASCULAR: S1 and S2 present. No murmurs, rubs, or gallops. Tachycardic irregularly irregular rhythm PULMONARY: Diffuse bilateral crackles ABDOMEN: Soft, nontender, nondistended, normoactive bowel sounds. No palpable organomegaly. MUSCULOSKELETAL: No joint swelling or deformity. EXTREMITIES: No cyanosis, clubbing, or pedal edema. NEUROLOGICAL: Very much lethargic. Needs repeated stimulation to follow some simple tasks cardiac commands. He was able to tell me his name. He was also able to tell me that he was in [place]. Extensive motor weakness in all 4 extremities. [employer] is weak in his arms. There is a preferential gaze to the right with his eyes are deviated to the right and inferior. He is arousable, extremely lethargic, and not consistent and following any commands. He is moving all 4 extremities to deep painful stimulation. SKIN: No rashes. Examination of the skin revealed no evidence of significant rashes, suspicious appearing nevi or other concerning lesions. - Labs CBC & Chem 7: 08/03/21 04:55 08/03/21 04:55 Labs: Abnormal Lab Results - Last 24 Hours (Table) 08/02/21 08/02/21 08/02/21 Range/Units 03:53 19:38 23:52 WBC (3.8-10.6) k/uL Neutrophils # (1.3-7.7) k/uL Lymphocytes # (1.0-4.8) k/uL Sodium (137-145) mmol/L Chloride (98-107) mmol/L BUN (9-20) mg/dL Creatinine (0.66-1.25) mg/dL Glucose (74-99) mg/dL POC Glucose (mg/dL) 293 H 300 H (75-99) mg/dL Calcium (8.4-10.2) mg/dL AST (17-59) U/L ALT (4-49) U/L Alkaline Phosphatase (38-126) U/L Total Protein (6.3-8.2) g/dL Albumin (3.5-5.0) g/dL Vitamin B12 2777.0 H (200.0-944.0) pg/mL 08/03/21 08/03/21 08/03/21 Range/Units 04:55 04:55 06:04 WBC 17.6 H (3.8-10.6) k/uL Neutrophils # 16.7 H (1.3-7.7) k/uL Lymphocytes # 0.4 L (1.0-4.8) k/uL Sodium 135 L (137-145) mmol/L Chloride 108 H (98-107) mmol/L BUN 33 H (9-20) mg/dL Creatinine 0.59 L (0.66-1.25) mg/dL Glucose 182 H (74-99) mg/dL POC Glucose (mg/dL) 164 H (75-99) mg/dL Calcium 7.8 L (8.4-10.2) mg/dL AST 77 H (17-59) U/L ALT 73 H (4-49) U/L Alkaline Phosphatase 175 H (38-126) U/L Total Protein 5.4 L (6.3-8.2) g/dL Albumin 2.5 L (3.5-5.0) g/dL Vitamin B12 (200.0-944.0) pg/mL Assessment and Plan Plan: 1 COVID-19 related pneumonia with secondary hypoxic respiratory failure. Patient was found to be symptomatic approximately a week ago and his condition has progressed significantly and currently is on high flow oxygen at 11 L, clinically stable and the patient's chest x-ray from today is showing bilateral pulmonary infiltrates, diffuse consistent with COVID-19 related pneumonia and overall oxygenation status has remained unchanged . Breathing is non labored. The patient remains on Decadron and Baricitinib 2 acute hypoxic respiratory failure secondary to above, currently on 11 L about 2 by nasal cannula 3 altered mentation with diminished level of consciousness likely secondary to COVID-19 related encephalopathy. His neurologic exam is nonfocal, questionable vascular insult at the level of the right cerebellum, MRI of the brain showed possible embolic phenomenon the patient was taken off the IV heparin due to concern of hemorrhagic transformation the patient was placed on aspirin and Brilinta, and the plan is ultimately to switch this patient to Eliquis. There is obvious alteration in his mental status. This morning, his condition is worse. He has a preferential gaze to the right. Extensive motor weakness in all 4 extremities. Neurology will be asked to evaluate this patient. 4 mild leukocytosis with a white cell count of 17.6 5 elevated inflammatory markers secondary to above, needs to be followed 6 non-anion gap metabolic acidosis, recovered 7 diabetes mellitus 8 hypertension 9 hyperlipidemia 10 Chronic atrial fibrillation , currently on Lopressor for rate control 25 mg by mouth twice a day Plan Asked the patient to be evaluated by neurology. May need another CAT scan of the brain without contrast. He'll be needed to assess progression or any interval new findings. Follow-up MRI of the brain results were noted and the patient is currently off anticoagulation and essential receiving antiplatelet agent along with subcu heparin. Speech to evaluate a bedside swallow, the patient was able to swallow on yesterday's evaluation. This is to be reevaluated today. Awaiting pro calcitonin level Continue Decadron and Baricitinib regarding his COVID-19 related pneumonia, Insulin sliding scale coverage in addition to Levemir insulin dose to be adjusted in the intensive care unit based on his blood sugar control Keep anticoagulation on hold for now and use antiplatelet agents. echocardiogram noted Doppler of LE was negative for any DVTs Carotid Dopplers was noted and it was consistent with nonocclusive disease condition is critical and the patient will be transferred to the intensive care unit. PICC line has been inserted Neurology follow-up attempt weaning the FiO2 to maintain saturation above 90%. Critical care min, >30 min Time with Patient: Greater than 30
--- NOTE | 2021-08-03 11:15 | CT ---
EXAMINATION TYPE: CT brain wo con DATE OF EXAM: 08/03/2021 COMPARISON: MRI brain 08/02/[address] brain 08/01/2021 HISTORY: Altered mental status CT DLP: 1086.[address] of the brain was performed. The ventricles, basal cisterns and sulci overlying the cerebral convexities demonstrate mild enlargem ent. In keeping with findings at recent MRI there are multiple focal areas of decreased attenuation i nvolving both cerebellar hemispheres and to a lesser extent the supratentorial regions. Findings are compatible embolic ischemic insults. There is no evidence for intracranial hemorrhage or sulcal effacement. There is decreased attenuation about the periventricular white matter and deep white matter of both c erebral hemispheres, compatible with chronic small vessel ischemia. Differential diagnosis does inclu de demyelination. No mass effects are seen.No midline shift. Osseous calvarium is intact. If symptoms persist consider MRI. IMPRESSION: 1. . In keeping with findings at recent MRI there are multiple focal areas of decreased attenuation i nvolving both cerebellar hemispheres and to a lesser extent the supratentorial regions. Findings are compatible embolic ischemic insults.
--- NOTE | 2021-08-03 11:36 | PN ---
PROGRESS NOTE This gentleman came with COVID pneumonia, respiratory failure, went on to have altered mentation and has atrial fibrillation, on Eliquis. Now he has what seems to be an embolic stroke. I did not examine the patient, but I reviewed the chart and spoke to Dr. Ochoa, the neurologist. There was a request for transesophageal echo. However, an echo I do not believe it is necessary at this time to do a transesophageal echo. The clinical scenario is quite evident and the setup is quite suggestive of an embolic stroke with underlying atrial fibrillation. I will therefore suggest no BARBARA at this time, but we can manage this case as if it is an embolic stroke and resume anticoagulation whenever Dr. Ochoa feels appropriate. We will continue to see the patient as needed. MMFREDIL / DAYANAN: [id number] /
[2021-08-03 11:41] LABS: Glucose,Whole Blood 130 mg/dL (75-99)
[2021-08-03] MEDS: SODIUM CHLORIDE 0.45% 1,000 ML IV SCH (14:47)
--- NOTE | 2021-08-03 15:51 | P.PN ---
Subjective Progress Note Date: 08/03/21 Patient is a 75 -year-old pleasant male was transferred from a outside hospital for atrial fibrillation with rapid ventricular rate. Patient is presently on therapeutic dose of Lovenox. Also has highly elevated INR. His baseline creatinine is unknown but his present creatinine is around the 0.66, patient is receiving half-normal saline at 75 mL per hour patient is also on Remdesivir, presently on 15 L of oxygen, CT of the chest did not show any pulmonary embolism but did show diffuse infiltrate patient was having symptoms for about 4 days patient was unable to provide much of history to me patient is too tired and weak. Patient is not tolerating any by mouth medications at this time because of which patient was started on IV Cardizem patient usually takes metoprolol 25 twice a day. Patient doesn't have any history of congestive heart failure. Patient was started on Decadron as well. Patient has highly elevated d-dimer. 08/01/2021 Patient is seen in follow-up continues to be closely monitored in the ICU. Patient is extremely lethargic although is arousable and intermittently resp onding appropriately to questions and commands. Patient continues to have delayed response and altered mental status and CT of the brain was ordered. Neurology has been consulted and pulmonary along with urology following closely. She continues on IV heparin along with IV Cardizem. white blood count is 14.1, hemoglobin is stable at 16.1, d-dimer is above 34.10, sodium is 141 with a potassium of 4.5 and current creatinine is 0.61. LDH is 30-55 and CRP is 6.3. TSH is 0.112 and free T4 is 4.06. patient is maintained on 15 L high flow nasal cannula along with occasional intermittent nonrebreather. Patient is afebrile. 08/02/2021 Patient is seen in follow up this morning and is being closely monitored in the ICU with multiple medical consultations following including pulmonary, infectiou s disease, cardiology, and neurology. CT of the brain recommending MRI and this is ordered and pending. Patient is on 13L HF nasal cannula. Mentation slowly improving and answering questions appropriately. Patient continues to be extremely weak and fatigues easily. Cardiology planning to transition cardizem to oral and possibly starting eliquis. 08/03/2021 Patient is seen and evaluated in follow-up this morning and patient continues to improve although continues to be extremely weak and fatigued. Multiple medical consultations following an neurology recommending BARBARA although was reviewed by cardiology and no plans for BARBARA at this time as MRI along with CT confirms embolic stroke with MRI showing a few scattered areas of restricted diffusion in the inferior cerebellar hemispheres bilaterally with scattered areas of restricted diffusion present in the cerebellum, occipital lobes, as well as bilateral parietal lobes. Patient continued on subcutaneous heparin with discussion of possibly starting Eliquis in the next 2 days. Patient has been started on Brilinta an neurology is following closely. Speech has evaluated the patient and recommending continuing the patient with nothing by mouth except medications as the swallow eval was not able to be completed due to extreme fatigue and lethargy. Speech will reevaluate the patient once more alert and awake. White blood count today is 17.6 with a hemoglobin of 14.6, d-dimer is elevated at 27.78, sodium is 135 with a potassium of 3.6, BUN is 33 and creatinine is 0.59. Blood sugars are being closely monitored. Repeat x-ray and labs along with inflammatory markers in the a.m. Continuing to wean as tolerated and patient is maintained on 9 L high flow and maintaining oxygen saturations of 97%. Patient with atrial fibrillation currently rate controlled with metoprolol and cardiology is following. REVIEW OF SYSTEMS: Unable to obtain much of review of systems because of his clinical condition Active Medications Acetaminophen (Acetaminophen Tab 325 Mg Tab) 650 mg PO Q4HR PRN PRN Reason: Fever and/ or Pain Ascorbic Acid (Ascorbic Acid 500 Mg Tab) 500 mg PO DAILY [facility] Last Admin: 08/03/21 08:14 Dose: 500 mg Documented by: Aspirin (Aspirin 81 Mg) 81 mg PO DAILY [facility] Last Admin: 08/03/21 08:14 Dose: 81 mg Documented by: Atorvastatin Calcium (Atorvastatin 40 Mg Tab) 40 mg PO HS [facility] Last Admin: 08/02/21 19:40 Dose: 40 mg Documented by: Baricitinib (Baricitinib 2 Mg Tablet) 4 mg PO DAILY [facility] Stop: 08/13/21 09:01 Last Admin: 08/03/21 08:14 Dose: 4 mg Documented by: Cholecalciferol (Cholecalciferol 10 Mcg (400 Iu) Tablet) 10 mcg PO DAILY [facility] Last Admin: 08/03/21 08:14 Dose: 10 mcg Documented by: Dexamethasone Sodium Phosphate (Dexamethasone Sod Phosphate 10 Mg/Ml 1 Ml Vial) 6 mg IV DAILY [facility] Last Admin: 08/03/21 08:14 Dose: 6 mg Documented by: Heparin Sodium (Porcine) (Heparin Sodium,Porcine/Pf 5,000 Unit/0.5 Ml Syringe) 5,000 unit SQ Q12HR [facility] Last Admin: 08/03/21 08:15 Dose: 5,000 unit Documented by: Sodium Chloride (Saline 0.45%) 1,000 mls @ 75 mls/hr IV .[id number] [facility] Last Admin: 08/03/21 14:47 Dose: 75 mls/hr Documented by: Insulin Aspart (Insulin Aspart (Novolog) 100 Unit/Ml Vial) 0 unit SQ Q6H [facility]; Protocol Last Admin: 08/03/21 11:58 Dose: Not Given Documented by: Insulin Detemir (Insulin Detemir (Levemir) 100 Unit/Ml Syr) 10 unit SQ HS [facility] Last Admin: 08/02/21 19:59 Dose: 10 unit Documented by: Metoprolol Tartrate (Metoprolol Tartrate 25 Mg Tab) 25 mg PO BID [facility] Last Admin: 08/03/21 08:15 Dose: 25 mg Documented by: Miscellaneous Information ([place] [facility] [place] each PO ONCE PRN PRN Reason: See Comments Miscellaneous Information (Potassium Replacement Protocol [place] [facility] [place] each M ISCELLANE DAILY PRN; Protocol PRN Reason: Per Protocol Sodium Chloride (Sodium Chloride 0.9% Flush 10 Ml Syringe) 10 ml IV Q4HR PRN PRN Reason: PICC Line Sodium Chloride (Sodium Chloride 0.9% Flush 10 Ml Syringe) 10 ml IV WEEKLY [facility] Sodium Chloride (Sodium Chloride 0.9% Flush 10 Ml Syringe) 20 ml IV Q4HR PRN PRN Reason: PICC Line Ticagrelor (Ticagrelor 90 Mg Tab) 90 mg PO BID [facility] Last Admin: 08/03/21 08:15 Dose: 90 mg Documented by: Zinc Sulfate (Zinc Sulfate 220 Mg Cap) 220 mg PO DAILY [facility] Last Admin: 08/03/21 08:14 Dose: 220 mg Documented by: PHYSICAL EXAMINATION: GENERAL: The patient is alert and oriented x2-3 extremely lethargic and fatigues easily and falls back asleep. Well developed, well nourished. HEENT: Pupils are round and equally reacting to light. EOMI. No scleral icterus. No conjunctival pallor. Normocephalic, atraumatic. No pharyngeal erythema. No th yromegaly. CARDIOVASCULAR: S1 and S2 muffled. irregularly irregular rhythm PULMONARY: Diffuse bilateral crackles and coarse rhonchi noted with diminished breath sounds at the bases ABDOMEN: Soft, nontender, nondistended, normoactive bowel sounds. No palpable organomegaly. MUSCULOSKELETAL: No joint swelling or deformity. EXTREMITIES: No cyanosis, clubbing, or pedal edema. NEUROLOGICAL: Gross neurological examination did not reveal any focal deficits. Diffusely weak SKIN: No rashes. Assessment and plan: -Covid 19 pneumonia: Patient will be continued on Baricitinib, IV dexamethasone, zinc, and vitamin supplements, and patient is maintained on subcut heparin along with Brilinta and aspirin -Atrial fibrillation with rapid ventricular rate new onset, currently rate controlled with metoprolol continue with subq heparin, cardiology following -elevated d-dimer with no evidence of PE on CTA, continue with subq heparin and possibly starting eliquis -possible hyperthyroidism with a TSH of 0.112 and a free T4 4.06 -altered mental status possibly secondary to COVID-19 encephalopathy or possibly secondary to bilateral hemispheric stroke -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 We'll continue sliding scale and long- acting and recommended Accu-Cheks before meals and at bedtime -Hyperlipidemia -Hypertension -DVT prophylaxis: subq heparin -full code Plan: Patient to continue on current medications and is being started on oral metoprolol along with sub-q heparin and will continue. Patient also was started on aspirin and Brilinta per neurology recommendations with the possibility of Eliquis in the near future. Patient was positive for stroke on MRI with possible embolic phenomena and BARBARA was requested although cardiology is not recommending BARBARA at this time. Multiple medical consultations including ID, neurology, pulmonary and cardiology following closely. Patient continues to be extremely lethargic and fatigues easily and mentation has improved from initial presentation although much more lethargic today and repeat CT is ordered and pending. Patient to receive a PICC line for possible nutritional support as patient continues to be extremely lethargic and swallow eval was not able to be completed given patient's mentation and extreme fatigue. Wean FI02 as tolerated. Patient is currently on 9 L high flow with oxygen saturations of 97%. Will repeat chest x-ray along with basic labs and inflammatory markers. Will discuss further with neurology about anticoagulation and will continue with antiplatelets for now. Prognosis is guarded. Objective - Vital Signs Vital signs: Vital Signs Temp 97.2 F L 08/03/21 04:00 Pulse 77 08/03/21 07:00 Resp 21 08/03/21 07:00 BP 152/84 08/03/21 07:00 Pulse Ox 95 08/03/21 07:00 Intake & Output 08/02/21 08/03/21 08/03/21 18:59 06:59 18:59 Intake Total 1220 825 75 Output Total 540 960 110 Balance 680 -135 -35 Weight 60.4 kg Intake: IV 980 825 75 Diltiazem 125 mg In 5 Sodium Chloride 0.9% 100 ml @ 5 MG/HR 5 mls/hr IV .Q24H [facility] Rx#:[id number] Sodium Chloride 0.45% 1, 975 825 75 000 ml @ 75 mls/hr IV . [id number] [facility] Rx#:[id number] Oral 240 Output: Urine 540 960 110 Other: Voiding Method Indwelling Catheter Indwelling Catheter - Labs CBC & Chem 7: 08/03/21 04:55 08/03/21 04:55 Labs: Abnormal Lab Results - Last 24 Hours (Table) 08/02/21 08/02/21 08/02/21 Range/Units 03:53 19:38 23:52 WBC (3.8-10.6) k/uL Neutrophils # (1.3-7.7) k/uL Lymphocytes # (1.0-4.8) k/uL Sodium (137-145) mmol/L Chloride (98-107) mmol/L BUN (9-20) mg/dL Creatinine (0.66-1.25) mg/dL Glucose (74-99) mg/dL POC Glucose (mg/dL) 293 H 300 H (75-99) mg/dL Calcium (8.4-10.2) mg/dL AST (17-59) U/L ALT (4-49) U/L Alkaline Phosphatase (38-126) U/L Total Protein (6.3-8.2) g/dL Albumin (3.5-5.0) g/dL Vitamin B12 2777.0 H (200.0-944.0) pg/mL 08/03/21 08/03/21 08/03/21 Range/Units 04:55 04:55 06:04 WBC 17.6 H (3.8-10.6) k/uL Neutrophils # 16.7 H (1.3-7.7) k/uL Lymphocytes # 0.4 L (1.0-4.8) k/uL Sodium 135 L (137-145) mmol/L Chloride 108 H (98-107) mmol/L BUN 33 H (9-20) mg/dL Creatinine 0.59 L (0.66-1.25) mg/dL Glucose 182 H (74-99) mg/dL POC Glucose (mg/dL) 164 H (75-99) mg/dL Calcium 7.8 L (8.4-10.2) mg/dL AST 77 H (17-59) U/L ALT 73 H (4-49) U/L Alkaline Phosphatase 175 H (38-126) U/L Total Protein 5.4 L (6.3-8.2) g/dL Albumin 2.5 L (3.5-5.0) g/dL Vitamin B12 (200.0-944.0) pg/mL
[2021-08-03 17:53] LABS: Glucose,Whole Blood 131 mg/dL (75-99)
--- NOTE | 2021-08-03 18:16 | P.PN ---
Subjective Progress Note Date: 08/03/21 The patient seen at bedside and per nurse he was drowsy today and seemed altered in the morning as a result he had CT of the brain ordered by CT ordered by ICU team. But in the afternoon and his mentation and is at improved. Objective - Vital Signs Vital signs: Vital Signs Temp 97.7 F 08/03/21 16:00 Pulse 90 08/03/21 16:00 Resp 20 08/03/21 16:00 BP 125/75 08/03/21 16:00 Pulse Ox 96 08/03/21 16:00 Intake & Output 08/02/21 08/03/21 08/03/21 18:59 06:59 18:59 Intake Total 1220 825 750 Output Total 540 960 800 Balance 680 -135 -50 Weight 60.4 kg 60.4 kg Intake: IV 980 825 750 Diltiazem 125 mg In 5 Sodium Chloride 0.9% 100 ml @ 5 MG/HR 5 mls/hr IV .Q24H [facility] Rx#:[id number] Sodium Chloride 0.45% 1, 975 825 750 000 ml @ 75 mls/hr IV . [id number] [facility] Rx#:[id number] Oral 240 Output: Urine 540 960 800 Other: Voiding Method Indwelling Catheter Indwelling Catheter Indwelling Catheter - Exam GENERAL: The patient is lying in bed and is not in acute distress. No carotid bruit bilaterally. NEUROLOGICAL: Higher mental function: The patient is awake, alert, oriented to self and place. He initially stated the year is 1990 then on second try said it was 2020 and i nitially stated month is Nov but on second try said July. He is able to name objects correctly (pen, watch and glasses). He is following simple commands. No neglect. Cranial nerves: The pupils are round, equal and reactive to light. VFF are full to confrontation. EOM is intact and no nystagmus. Normal facial sensation. No facial weakness noted. No dysarthria is noted. Tongue is midline and move side to side. Motor: Gait is deferred. The strength is lifting all extremities above gravity without focality. There seems to be decrease tone over upper and normal over lowers. Cerebellum: Had hard time assessing Sensation: Normal. Reflexes (right/left): 1+ throughout. Plantars are downgoing bilaterally. WORK-UP: * CT of the head performed on 07/24/2021 is reported as abnormal area of attenuation within the right cerebellum may reflect vascular insult however underlying lesion or necrotic. Correlate with MRI. * Carotid duplex is reported as there is antegrade flow in the vertebral arteries. Images and measurements suggest 35% stenosis in both internal carotid arteries. * MRI of the brain report is reported as diffuse scattered area of restricted diffusion, correlate for embolic phenomena. In the body they reported it is reported that the patient has diffusion weighted image demonstrated restricted effusion and inferior cerebellar hemispheres bilaterally, scattered area of restricted diffusion in the cerebellum, occipital lobes are noted bilaterally as well as bilateral parietal. Encephalomalacia was noted in the region of the thalamus over the right likely due to chronic vascular insult. Scattered area of hyperdensity present in that. Colossal, periventricular and subcortical white matter on inversion recovery T2-weighted images are currently related to chronic small vessel ischemic changes also noted. I personally reviewed that MRI the brain and I do agree patient has bilateral hemispheric stroke over the cerebellar occipital region parietal, frontal is seems embolic in nature. * CT angiography of the head and neck was reported as atheromatous plaquing present bilaterally slightly greater on the left. No flow limiting stenosis bilateral carotid bifurcation. Finding are stable from 12/04/2019 at. Normal [place] [facility] [place]. * CT of the head was ordered as a result because of his altered mental status since reported as in keeping with a finding at recent MRI there are multiple focal area of decreased attenuation involving both cerebellar hemisphere and to a lesser extent the supratentorial region. Findings are compatible embolic ischemic insults.2-D echo was reported as left ventricle size is normal. Moderate consider Limbitrol hypertrophy. Ejection fraction of 55-60%. Left ventricle filling pressure cannot be at estimated due to 8 atrial fibrillation. * Routine EEG is abnormal. The back or slowing suggestive of moderate to severe encephalopathy. There are no focal slowing, epileptiform discharges or seizure in the EEG. Clinical correlation is recommended. * Lipid panel is triglyceride of 104, cholesterol of 96, LDL 28 and HDL of 46. * AST of 115 and ALT of 77 * TSH is 0.112 and the free T4 is 4.06 * Hemoglobin A1c is 9.2 * Vitamin B12 is 2006 177 which is above normal but it's unremarkable. * Serum folate level is 5.70 and the normal supposed to be between 4.4-31 - Labs CBC & Chem 7: 08/03/21 04:55 08/03/21 04:55 Labs: Abnormal Lab Results - Last 24 Hours (Table) 08/02/21 08/02/21 08/02/21 Range/Units 03:53 19:38 23:52 WBC (3.8-10.6) k/uL Neutrophils # (1.3-7.7) k/uL Lymphocytes # (1.0-4.8) k/uL D-Dimer (<0.60) mg/L FEU Sodium (137-145) mmol/L Chloride (98-107) mmol/L BUN (9-20) mg/dL Creatinine (0.66-1.25) mg/dL Glucose (74-99) mg/dL POC Glucose (mg/dL) 293 H 300 H (75-99) mg/dL Calcium (8.4-10.2) mg/dL AST (17-59) U/L ALT (4-49) U/L Alkaline Phosphatase (38-126) U/L Total Protein (6.3-8.2) g/dL Albumin (3.5-5.0) g/dL Vitamin B12 2777.0 H (200.0-944.0) pg/mL 08/03/21 08/03/21 08/03/21 Range/Units 04:55 04:55 06:04 WBC 17.6 H (3.8-10.6) k/uL Neutrophils # 16.7 H (1.3-7.7) k/uL Lymphocytes # 0.4 L (1.0-4.8) k/uL D-Dimer (<0.60) mg/L FEU Sodium 135 L (137-145) mmol/L Chloride 108 H (98-107) mmol/L BUN 33 H (9-20) mg/dL Creatinine 0.59 L (0.66-1.25) mg/dL Glucose 182 H (74-99) mg/dL POC Glucose (mg/dL) 164 H (75-99) mg/dL Calcium 7.8 L (8.4-10.2) mg/dL AST 77 H (17-59) U/L ALT 73 H (4-49) U/L Alkaline Phosphatase 175 H (38-126) U/L Total Protein 5.4 L (6.3-8.2) g/dL Albumin 2.5 L (3.5-5.0) g/dL Vitamin B12 (200.0-944.0) pg/mL 08/03/21 08/03/21 Range/Units 10:35 11:40 WBC (3.8-10.6) k/uL Neutrophils # (1.3-7.7) k/uL Lymphocytes # (1.0-4.8) k/uL D-Dimer 27.78 H (<0.60) mg/L FEU Sodium (137-145) mmol/L Chloride (98-107) mmol/L BUN (9-20) mg/dL Creatinine (0.66-1.25) mg/dL Glucose (74-99) mg/dL POC Glucose (mg/dL) 130 H (75-99) mg/dL Calcium (8.4-10.2) mg/dL AST (17-59) U/L ALT (4-49) U/L Alkaline Phosphatase (38-126) U/L Total Protein (6.3-8.2) g/dL Albumin (3.5-5.0) g/dL Vitamin B12 (200.0-944.0) pg/mL Assessment and Plan Assessment: Altered mental status with generalized weakness and dysphagia due to COVID-19 pneumonia with secondary hypoxic respiratory failure.---mentation improving. Acute/subacute bilateral hemisphere stroke. Seems likely cardioembolic in nature especially with new onset of atrial fibrillation COVID-19 related pneumonia with secondary hypoxic respiratory failure History of old stroke 11/2019 and TIA 01/2020 without residual weakness or focality New-onset atrial fibrillation currently Diabetes mellitus (recent HbA1c is 9.2) Transaminitis and it's trending down Hypertension Hyperlipidemia Plan: * Because of the bilateral hemispheric stroke and they seem acute to subacute in nature, I had a discussion with the that there is increased risk of a hemorrhagic conversion with anticoagulation (especially with new stroke) at the same time I notified her that without anticoagulation there is also a risk of a stroke. So will hold for another day. and restart it tomorrow Eliquis 5 mg 1 tablet twice a day. Once anticoagulation is started the Plavix 75 can be held from a neurological perspective to avoid risk of bleed. and his home d ose of Plavix 75 mg daily. * Continue Lipitor 40 mg daily at bedtime and if patient has worsening of LFT's will go down on dose. * PT, OT and ANDROID PLATFORM DEVELOPER are consulted * Place the patient on cardiac monitoring * Place the patient on every one hour neuro checks * Cardiology is on board. Spoke with cardiology and will abort getting BARBARA. * We'll defer the rest of the medical management to the primary as well as a ICU team. * Upon discharge, the patient needs to follow-up with his neurology team with 1- 2 weeks as outpatient ([facility]). DVT Prophylaxis: Place on subq heparin 5000U every 12 hours (once starts on eliquis stop subq heparin). CONDITION: Is very guarded. The plan was discussed with the patient's nurse. Kaiser Ochoa M.D. Neuro-hospitalist Time with Patient: Less than 30
[2021-08-03] MEDS: ATORVASTATIN 40 MG TAB PO SCH (20:38)
[2021-08-03] MEDS: INSULIN DETEMIR (LEVEMIR) 100 UNIT/ML SYR SQ SCH (20:38)
[2021-08-03 23:53] LABS: Glucose,Whole Blood 133 mg/dL (75-99)
--- NOTE | 2021-08-03 23:55 | PN ---
PROGRESS NOTE DATE OF SERVICE: 08/03/2021 REASON FOR FOLLOWUP: COVID-19 pneumonia. INTERVAL HISTORY: The patient is afebrile. The patient is breathing comfortably currently on 6 L nasal cannula. The patient is hemodynamically stable. Mentation remains to be an issue, but no other changes reported by the nursing staff. PHYSICAL EXAMINATION: Blood pressure 135/82 with a pulse of 89, temperature is 97.9. He is 97% on 6 L nasal cannula. General description is an elderly male lying in bed in no distress. Respiratory system: Unlabored breathing with diminished breath sounds. No wheeze. Heart S1, S2. Regular rate and rhythm. Abdomen soft, no tenderness. LABS: Hemoglobin is 14.3, white count of 17.6, BUN of 33, creatinine 0.59. Liver enzymes were mildly elevated. DIAGNOSTIC IMPRESSION/PLAN: Patient with acute COVID-19 pneumonia in this patient chest x-ray did show slight worsening on the left base. The patient is currently afebrile. The patient is currently covered with Dexamethasone, zinc, ascorbic acid and heparin to continue and monitor clinical course closely. He may benefit from high-dose will be discussed further with Pulmonary. Continue supportive care. MMODL / IJN: [id number] /
[2021-08-04] MEDS: INSULIN ASPART (NovoLOG) 100 UNIT/ML VIAL SQ SCH ×5 (00:09→21:10)
[2021-08-04] MEDS: SODIUM CHLORIDE 0.45% 1,000 ML IV SCH (00:24)
[2021-08-04 05:55] LABS: Basophils # (A) 0.1 k/uL (0-0.2); Basophils % (A) 0 %; Eosinophils % (A) 0 %; HCT 49.5 % (39.0-53.0); HGB 15.6 gm/dL (13.0-17.5); Lymphocytes # (A) 0.6 k/uL (1.0-4.8); Lymphocytes % (A) 2 %; MCH 28.1 pg (25.0-35.0); MCHC 31.6 g/dL (31.0-37.0); Mean Platelet Volume 9.1; Monocytes # (A) 0.4 k/uL (0-1.0); Monocytes % (A) 2 %; Neutrophils # (A) 26.1 k/uL (1.3-7.7); Neutrophils % (A) 96 %; Platelet Count 222 k/uL (150-450); RBC 5.56 m/uL (4.30-5.90); RDW 13.7 % (11.5-15.5); WBC 27.3 k/uL (3.8-10.6)
[2021-08-04 06:10] LABS: ALT 53 U/L (4-49); AST 84 U/L (17-59); African American GFR (CKD) >90 (>60 ml/min/1.73 sqM); Albumin 2.6 g/dL (3.5-5.0); Alkaline Phosphatase 188 U/L (38-126); Anion Gap 8 mmol/L; Blood Urea Nitrogen 26 mg/dL (9-20); C Reactive Protein 4.3 mg/dL (<1.0); Calcium 7.8 mg/dL (8.4-10.2); Carbon Dioxide 15 mmol/L (22-30); Chloride 108 mmol/L (98-107); Glucose 123 mg/dL (74-99); Non-African American GFR(CKD) >90 (>60 ml/min/1.73 sqM); Potassium 4.9 mmol/L (3.5-5.1); Sodium 131 mmol/L (137-145); Total Bilirubin 1.8 mg/dL (0.2-1.3); Total Protein 5.9 g/dL (6.3-8.2)
--- NOTE | 2021-08-04 07:06 | XR ---
EXAMINATION TYPE: XR chest 1V portable DATE OF EXAM: 08/04/2021 COMPARISON: 08/03/2021 INDICATION: covid TECHNIQUE: Single frontal view of the chest is obtained. FINDINGS: The heart size is normal. The pulmonary vasculature is normal. There is a moderate infiltrate through the left lung. Mild infiltrates in the periphery of the right lung. Findings can be compatible with atypical pneumonia. PICC line enters on the right with the tip in the right atrium. EKG leads overlie the chest. IMPRESSION: 1. Diffuse mild infiltrates greater on the left can be compatible with atypical pneumonia.
[2021-08-04 07:20] LABS: Anisocytosis (M) Present; Poikilocytosis (M) Present; RBC Fragments Present
[2021-08-04] MEDS: METOPROLOL TARTRATE 25 MG TAB PO SCH (08:38)
[2021-08-04] MEDS: CHOLECALCIFEROL 10 MCG (400 IU) TABLET PO SCH (08:38)
[2021-08-04] MEDS: ZINC SULFATE 220 MG CAP PO SCH (08:38)
[2021-08-04] MEDS: DEXAMETHASONE SOD PHOSPHATE 10 MG/ML 1 ML VIAL IV SCH (08:38)
[2021-08-04] MEDS: ASCORBIC ACID 500 MG TAB PO SCH (08:38)
[2021-08-04] MEDS: APIXABAN 5 MG TAB PO SCH ×2 (08:38→21:10)
[2021-08-04] MEDS: ASPIRIN 81 MG PO SCH (08:38)
[2021-08-04] MEDS: BARICITINIB 2 MG TABLET PO SCH (08:38)
--- NOTE | 2021-08-04 09:19 | CDI ---
Documentation Clarification Form Date: 08/03/2021 02:02:00 PM From: Inga Nguyen RN, CCDS Admit Date: 07/30/2021 07:41:00 PM Patient Name: Rick Childress V Visit Number: [id number] Discharge Date: ATTENTION: The Clinical Documentation Specialists (CDI) and [facility] Coding Staff appreciate your assistance in clarifying documentation. Please respond to the clarification below the line at the bottom and electronically sign. The CDI & [facility] Coding staff will review the response and follow-up if needed. Please note: Queries are made part of the Legal Health Record. If you have any questions, please contact the author of this message via ITS. Dr. Kaiser Ochoa Your patient has the documented symptom of Altered Mental Status secondary to COVID-19 Pneumonia 08/02/21 Additional clarification regarding the etiology of this symptom is requested. History/Risk Factors: COVID-19 pneumonia Clinical Indicators: 75-year-old male transfer for atrial fibrillation with rvr, ruled in for COVID-19 pneumonia, respiratory failure. He was very tired and lethargic. Chest x-ray showed diffuse bilateral pulmonary infiltrates. He had a positive COVID test. 07/31 Labs: WBC 16.1Neutrophils 15.2, 08/01 CT Brain: Abnormal areas of attenuation within the right cerebellum may reflect vascular insult however underlying lesions or necrotic 08/02 Brain MRI: Diffuse scattered areas of restricted diffusion, correlate for embolic phenomenon 07/30 Vital signs: 140/93 98 28 97.9 95 % on Nor-rebreather O2 flow rate 10 07/30 @ 04:07 149/76 118 28 98.5 (ax) 90% High flow @ 15/L Pulmonary: altered mentation with diminished level of consciousness likely secondary to COVID-19 related encephalopathy Treatment: ICU Telemetry monitoring IV fluids as possible 150 ML/HR with 150 mEq of NA bicarb IV push Monitor inflammatory makers Decadron 6 MG IV Daily Monitor O2 sats titrate Brilinta 90 MG PO BID Please clarify the etiology of the symptom of Altered Mental Status: [ ] Metabolic Encephalopathy due to COVID [ ] Hypoxic Encephalopathy due to respiratory failure [ ] Other condition (please specify) [ ] Unable to determine -->hypoxic encephalopathy due to respiratory failure (Template Last Revised: December 2020) MTDD
--- NOTE | 2021-08-04 09:48 | P.PN ---
Subjective Progress Note Date: 08/04/212020, neurologically the patient is much more awake and alert compared to yesterday. He is looking around. He is weak yet he is 104 extremities. Repeat CAT scan of the brain was done yesterday and was consistent with stable embolic ischemic changes bilaterally. The patient has been switched to Eliquis and the patient is also on aspirin. His cardiac rhythm remains atrial fibrillation. Meanwhile, the patient is having some difficulties with swallowing. He is retaining his fluid in his mouth. Swallow evaluation was done at the bedside. This will be repeated today. Meanwhile, his oxygen requirements have gone up today and this morning he was on 11 L from a baseline of 60 L. He remains on Decadron 6 mg IV every 24 hours and is also on Baricitinib. Chest x-ray was showing diffuse bilateral pulmonary infiltrates consistent with COVID-19 related pneumonia. No significant cough. No significant sputum production. No labored breathing. A repeat chest x-ray shows diffuse mild pulmonary infiltrates, essentially stable compared to yesterday, more so on the left. The patient is less lethargic compared to yesterday. He is much more awake and alert. Hemodynamically stable. In terms of his inflammatory markers, the patient's d- dimer is still elevated at 24.3. He is LDH level is still pending for now. I do appreciate also rise in his white cell count is up to 27.3 with a hemoglobin of 15.6. I also appreciated development of a non-anion gap metabolic acidosis. His sodium level is at 131 with a serum bicarb of 15 and the patient is on a half normal saline at rate of 75 mL an hour. The bicarb deficit will be corrected. Objective - Vital Signs Vital signs: Vital Signs Temp 98.8 F 08/04/21 08:00 Pulse 98 08/04/21 09:00 Resp 22 08/04/21 09:00 BP 135/68 08/04/21 09:00 Pulse Ox 86 L 08/04/21 09:00 Intake & Output 08/03/21 08/04/21 08/04/21 18:59 06:59 18:59 Intake Total 900 900 225 Output Total 1000 755 160 Balance -100 145 65 Weight 60.4 kg 62.6 kg Intake: IV 900 900 225 Sodium Chloride 0.45% 1, 900 900 225 000 ml @ 75 mls/hr IV . [id number] [facility] Rx#:[id number] Output: Urine 1000 755 160 Other: Voiding Method Indwelling Catheter Indwelling Catheter - Exam Lethargic, calm, comfortable, no agitation, sleepy, his breathing is not labored. Currently off of 11 L high flow and he was taken off the nonrebreather mask. Head exam was generally normal. There was no scleral icterus or corneal arcus. Mucous membranes were moist. HEENT: Pupils are round and equally reacting to light. EOMI. No scleral icterus. No conjunctival pallor. Normocephalic, atraumatic. No pharyngeal erythema. No thyromegaly. CARDIOVASCULAR: S1 and S2 present. No murmurs, rubs, or gallops. Tachycardic irregularly irregular rhythm PULMONARY: Diffuse bilateral crackles ABDOMEN: Soft, nontender, nondistended, normoactive bowel sounds. No palpable organomegaly. MUSCULOSKELETAL: No joint swelling or deformity. EXTREMITIES: No cyanosis, clubbing, or pedal edema. NEUROLOGICAL: Neurologically, no facial asymmetry. He is moving his eyes in all different directions. Coughing mechanism is weak. Motor functions are weak in all 4 extremities. The neurologic exam is nonfocal. He is able to follow simple commands and answer simple questions. He is aware of self and place. SKIN: No rashes. Examination of the skin revealed no evidence of significant rashes, suspicious appearing nevi or other concerning lesions. - Labs CBC & Chem 7: 08/04/21 05:22 08/04/21 05:22 Labs: Abnormal Lab Results - Last 24 Hours (Table) 08/03/21 08/03/21 08/03/21 Range/Units 10:35 10:35 11:40 WBC (3.8-10.6) k/uL Neutrophils # (1.3-7.7) k/uL Lymphocytes # (1.0-4.8) k/uL D-Dimer 27.78 H (<0.60) mg/L FEU Sodium (137-145) mmol/L Chloride (98-107) mmol/L Carbon Dioxide (22-30) mmol/L BUN (9-20) mg/dL Creatinine (0.66-1.25) mg/dL Glucose (74-99) mg/dL POC Glucose (mg/dL) 130 H (75-99) mg/dL Calcium (8.4-10.2) mg/dL Total Bilirubin (0.2-1.3) mg/dL AST (17-59) U/L ALT (4-49) U/L Alkaline Phosphatase (38-126) U/L C-Reactive Protein (<1.0) mg/dL Total Protein (6.3-8.2) g/dL Albumin (3.5-5.0) g/dL Procalcitonin 0.11 H (0.02-0.09) ng/mL 08/03/21 08/03/21 08/04/21 Range/Units 17:51 23:51 05:22 WBC 27.3 H (3.8-10.6) k/uL Neutrophils # 26.1 H (1.3-7.7) k/uL Lymphocytes # 0.6 L (1.0-4.8) k/uL D-Dimer (<0.60) mg/L FEU Sodium (137-145) mmol/L Chloride (98-107) mmol/L Carbon Dioxide (22-30) mmol/L BUN (9-20) mg/dL Creatinine (0.66-1.25) mg/dL Glucose (74-99) mg/dL POC Glucose (mg/dL) 131 H 133 H (75-99) mg/dL Calcium (8.4-10.2) mg/dL Total Bilirubin (0.2-1.3) mg/dL AST (17-59) U/L ALT (4-49) U/L Alkaline Phosphatase (38-126) U/L C-Reactive Protein (<1.0) mg/dL Total Protein (6.3-8.2) g/dL Albumin (3.5-5.0) g/dL Procalcitonin (0.02-0.09) ng/mL 08/04/21 08/04/21 Range/Units 05:22 05:22 WBC (3.8-10.6) k/uL Neutrophils # (1.3-7.7) k/uL Lymphocytes # (1.0-4.8) k/uL D-Dimer 24.30 H (<0.60) mg/L FEU Sodium 131 L (137-145) mmol/L Chloride 108 H (98-107) mmol/L Carbon Dioxide 15 L (22-30) mmol/L BUN 26 H (9-20) mg/dL Creatinine 0.59 L (0.66-1.25) mg/dL Glucose 123 H (74-99) mg/dL POC Glucose (mg/dL) (75-99) mg/dL Calcium 7.8 L (8.4-10.2) mg/dL Total Bilirubin 1.8 H (0.2-1.3) mg/dL AST 84 H (17-59) U/L ALT 53 H (4-49) U/L Alkaline Phosphatase 188 H (38-126) U/L C-Reactive Protein 4.3 H (<1.0) mg/dL Total Protein 5.9 L (6.3-8.2) g/dL Albumin 2.6 L (3.5-5.0) g/dL Procalcitonin (0.02-0.09) ng/mL Assessment and Plan Plan: 1 COVID-19 related pneumonia with secondary hypoxic respiratory failure. Patient was found to be symptomatic approximately a week ago and his condition has progressed significantly and currently is on high flow oxygen at 11 L, clinically stable and the patient's chest x-ray from today is showing bilateral pulmonary infiltrates, diffuse consistent with COVID-19 related pneumonia and overall oxygenation status has remained unchanged . Breathing is non labored. The patient remains on Decadron and Baricitinib. His chest x-ray findings are essentially unchanged. Overall respiratory status is unchanged and the patient is kept on 11 L about 2 by nasal cannula. He was weaned down to 6 L and later on brought back up to 11 L to maintain a saturation above 90%. 2 acute hypoxic respiratory failure secondary to above, currently on 11 L by nasal cannula 3 altered mentation with diminished level of consciousness likely secondary to COVID-19 related encephalopathy. The patient has embolic strokes bilaterally as confirmed by the CAT scan of the brain and MRI. He is currently on Eliquis. No signs of any hemorrhagic transformation. Please refer to the CAT scan of the brain done yesterday. He is currently on a combination of aspirin and Eliquis. 4 mild leukocytosis with a white cell count of 27. The pro calcitonin LEVEL IS LOW. WE'LL CONTINUING THE BARICITINIB. WE DON'T THINK THAT THE PATIENT IS INFECTED BY BACTERIA AT THIS POINT IN TIME. 5 elevated inflammatory markers secondary to above, needs to be followed 6 non-anion gap metabolic acidosis, and the bicarb deficit these to be replaced 7 diabetes mellitus 8 hypertension 9 hyperlipidemia 10 Chronic atrial fibrillation , currently on Lopressor for rate control 25 mg by mouth twice a day, currently on Eliquis Plan Neurologic function is stable Neurologically improves compared to yesterday Continue Eliquis and aspirin Continue Decadron and Baricitinib regarding his COVID-19 related pneumonia, Insulin sliding scale coverage in addition to Levemir insulin dose to be adjusted in the intensive care unit based on his blood sugar control Keep anticoagulation on hold for now and use antiplatelet agents. echocardiogram noted Doppler of LE was negative for any DVTs, Dopplers of the lower extremities were negative and the patient's d-dimer is improving Carotid Dopplers was noted and it was consistent with nonocclusive disease condition is critical and the patient will be transferred to the intensive care unit. Replaced the bicarb deficit by a bicarb infusion PICC line has been inserted Neurology follow-up reevaluate the swallow by speech therapy attempt weaning the FiO2 to maintain saturation above 90%. Critical care min, >30 min Time with Patient: Greater than 30
[2021-08-04 12:09] LABS: Glucose,Whole Blood 122 mg/dL (75-99)
[2021-08-04] MEDS: DEXTROSE 5% IN WATER 1,000 ML with SODIUM BICARB (1 MEQ/ML) 150 ML IV SCH (13:47)
--- NOTE | 2021-08-04 15:34 | P.PN ---
Subjective Progress Note Date: 08/04/21 Patient is a 75 -year-old pleasant male was transferred from a outside hospital for atrial fibrillation with rapid ventricular rate. Patient is presently on therapeutic dose of Lovenox. Also has highly elevated INR. His baseline creatinine is unknown but his present creatinine is around the 0.66, patient is receiving half-normal saline at 75 mL per hour patient is also on Remdesivir, presently on 15 L of oxygen, CT of the chest did not show any pulmonary embolism but did show diffuse infiltrate patient was having symptoms for about 4 days patient was unable to provide much of history to me patient is too tired and weak. Patient is not tolerating any by mouth medications at this time because of which patient was started on IV Cardizem patient usually takes metoprolol 25 twice a day. Patient doesn't have any history of congestive heart failure. Patient was started on Decadron as well. Patient has highly elevated d-dimer. 08/01/2021 Patient is seen in follow-up continues to be closely monitored in the ICU. Patient is extremely lethargic although is arousable and intermittently resp onding appropriately to questions and commands. Patient continues to have delayed response and altered mental status and CT of the brain was ordered. Neurology has been consulted and pulmonary along with urology following closely. She continues on IV heparin along with IV Cardizem. white blood count is 14.1, hemoglobin is stable at 16.1, d-dimer is above 34.10, sodium is 141 with a potassium of 4.5 and current creatinine is 0.61. LDH is 30-55 and CRP is 6.3. TSH is 0.112 and free T4 is 4.06. patient is maintained on 15 L high flow nasal cannula along with occasional intermittent nonrebreather. Patient is afebrile. 08/02/2021 Patient is seen in follow up this morning and is being closely monitored in the ICU with multiple medical consultations following including pulmonary, infectiou s disease, cardiology, and neurology. CT of the brain recommending MRI and this is ordered and pending. Patient is on 13L HF nasal cannula. Mentation slowly improving and answering questions appropriately. Patient continues to be extremely weak and fatigues easily. Cardiology planning to transition cardizem to oral and possibly starting eliquis. 08/03/2021 Patient is seen and evaluated in follow-up this morning and patient continues to improve although continues to be extremely weak and fatigued. Multiple medical consultations following an neurology recommending BARBARA although was reviewed by cardiology and no plans for BARBARA at this time as MRI along with CT confirms embolic stroke with MRI showing a few scattered areas of restricted diffusion in the inferior cerebellar hemispheres bilaterally with scattered areas of restricted diffusion present in the cerebellum, occipital lobes, as well as bilateral parietal lobes. Patient continued on subcutaneous heparin with discussion of possibly starting Eliquis in the next 2 days. Patient has been started on Brilinta an neurology is following closely. Speech has evaluated the patient and recommending continuing the patient with nothing by mouth except medications as the swallow eval was not able to be completed due to extreme fatigue and lethargy. Speech will reevaluate the patient once more alert and awake. White blood count today is 17.6 with a hemoglobin of 14.6, d-dimer is elevated at 27.78, sodium is 135 with a potassium of 3.6, BUN is 33 and creatinine is 0.59. Blood sugars are being closely monitored. Repeat x-ray and labs along with inflammatory markers in the a.m. Continuing to wean as tolerated and patient is maintained on 9 L high flow and maintaining oxygen saturations of 97%. Patient with atrial fibrillation currently rate controlled with metoprolol and cardiology is following. 08/04/2021 Patient is seen in follow-up this morning continues to be in the ICU and continues to drift often fall asleep easily although mentation has improved. Patient states the year as 1990 but also states he knows that is wrong and states he is currently in the hospital for Covid but was unaware of any recent stroke. Right side lotteries agent strength 4/5 improving although patient is unable to completely lift extremity and left side lotteries agent strength continues to be weak 2/5 and completely unable to lift this extremity. Multiple medical consultations including neurology, cardiology, grocery associate along with infectious disease following closely. Patient being resumed on Eliquis and Brilinta has been discontinued. Chest x-ray today shows diffuse mild infiltrates greater on the left that can be compatible with atypical pneumonia. Awaiting repeat swallow eval today with the possibility of TPN for enteral nutrition as patient has been nothing by mouth. Patient continues on 11 L high flow and recommend to wean as tolerated. White blood count today is 27.3 with a hemoglobin of 15.6, d-dimer is 24.3, sodium is 131 with a potassium of 4.9, BUN is 26 and creatinine is 0.59. CRP is 4.3. Patient continues on baricitinib along with dexamethasone and vitamin and zinc supplements and will continue. Review of systems: Constitutional: reports of fatigue, no reports of fever, or chills Cardiovascular: No reports of chest pain or palpitations Respiratory: reports of shortness of breath GI: No reports of nausea, vomiting, or diarrhea : No reports of dysuria or retention Neurovascular: reports of weakness All medications have been reviewed Active Medications Acetaminophen (Acetaminophen Tab 325 Mg Tab) 650 mg PO Q4HR PRN PRN Reason: Fever and/ or Pain Apixaban (Apixaban 5 Mg Tab) 5 mg PO BID [facility]; Protocol Last Admin: 08/04/21 08:38 Dose: 5 mg Documented by: Ascorbic Acid (Ascorbic Acid 500 Mg Tab) 500 mg PO DAILY [facility] Last Admin: 08/04/21 08:38 Dose: 500 mg Documented by: Aspirin (Aspirin 81 Mg) 81 mg PO DAILY [facility] Last Admin: 08/04/21 08:38 Dose: 81 mg Documented by: Atorvastatin Calcium (Atorvastatin 40 Mg Tab) 40 mg PO [facility] Last Admin: 08/03/21 20:38 Dose: 40 mg Documented by: Baricitinib (Baricitinib 2 Mg Tablet) 4 mg PO DAILY [facility] Stop: 08/13/21 09:01 Last Admin: 08/04/21 08:38 Dose: 4 mg Documented by: Cholecalciferol (Cholecalciferol 10 Mcg (400 Iu) Tablet) 10 mcg PO DAILY [facility] Last Admin: 08/04/21 08:38 Dose: 10 mcg Documented by: Dexamethasone Sodium Phosphate (Dexamethasone Sod Phosphate 10 Mg/Ml 1 Ml Vial) 6 mg IV DAILY [facility] Last Admin: 08/04/21 08:38 Dose: 6 mg Documented by: Sodium Bicarbonate 150 ml/ (Dextrose/Water) 1,150 mls @ 75 mls/hr IV .[id number] [facility] Last Admin: 08/04/21 13:47 Dose: 75 mls/hr Documented by: Insulin Aspart (Insulin Aspart (Novolog) 100 Unit/Ml Vial) 0 unit SQ Q6H [facility]; Protocol Last Admin: 08/04/21 12:02 Dose: Not Given Documented by: Insulin Detemir (Insulin Detemir (Levemir) 100 Unit/Ml Syr) 10 unit SQ [facility] Last Admin: 08/03/21 20:38 Dose: 10 unit Documented by: Metoprolol Tartrate (Metoprolol Tartrate 25 Mg Tab) 25 mg PO BID [facility] Last Admin: 08/04/21 08:38 Dose: 25 mg Documented by: Miscellaneous Information ( Communication To Pharmacy 1 Each [facility] [place]) 1 each PO ONCE PRN PRN Reason: See Comments Miscellaneous Information (Potassium Replacement Protocol 1 Each [facility] [place]) 1 each MISCELLANE DAILY PRN; Protocol PRN Reason: Per Protocol Sodium Chloride (Sodium Chloride 0.9% Flush 10 Ml Syringe) 10 ml IV Q4HR PRN PRN Reason: PICC Line Sodium Chloride (Sodium Chloride 0.9% Flush 10 Ml Syringe) 10 ml IV WEEKLY [facility] Sodium Chloride (Sodium Chloride 0.9% Flush 10 Ml Syringe) 20 ml IV Q4HR PRN PRN Reason: PICC Line Zinc Sulfate (Zinc Sulfate 220 Mg Cap) 220 mg PO DAILY [facility] Last Admin: 08/04/21 08:38 Dose: 220 mg Documented by: PHYSICAL EXAMINATION: GENERAL: The patient is alert and oriented x2-3 extremely lethargic and fatigues easily and falls back asleep. slightly more improved today and able to stay awake longer. Well developed, well nourished. HEENT: Pupils are round and equally reacting to light. EOMI. No scleral icterus. No conjunctival pallor. Normocephalic, atraumatic. No pharyngeal erythema. No thyromegaly. CARDIOVASCULAR: S1 and S2 muffled. irregularly irregular rhythm PULMONARY: Diffuse bilateral coarse rhonchi noted with diminished breath sounds at the bases ABDOMEN: Soft, nontender, nondistended, normoactive bowel sounds. No palpable organomegaly. MUSCULOSKELETAL: No joint swelling or deformity. EXTREMITIES: No cyanosis, clubbing, or pedal edema. NEUROLOGICAL: Gross neurological examination did not reveal any focal deficits. Diffusely weak SKIN: No rashes. 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 We'll continue sliding scale and long- acting and recommended Accu-Cheks before meals and at bedtime -Hyperlipidemia -Hypertension -DVT prophylaxis: eliquis -full code Plan: Patient to continue on current medications and is being started on oral eliquis and continued on metoprolol and aspirin. Patient was positive for stroke on MRI with possible embolic phenomena and BARBARA was requested although cardiology is not recommending BARBARA at this time. Multiple medical consultations including ID, neurology, pulmonary and cardiology following closely. Patient continues to be extremely lethargic and fatigues easily and mentation has improved from initial presentation and patient is able to stay awake longer to converse although fatigues easily and is not completely alert and oriented 3. Patient did receive a PICC line for possible nutritional support as patient continues to be extremely lethargic and swallow eval was not able to be completed given patient's mentation and extreme fatigue. Repeat swallow eval today was done and patient is placed on consistent carb dysphasia 1 pured diet with honey thickened liquids and aspiration precautions with head of the bed elevated 30- 45 and one-to-one supervision with meals. Wean FI02 as tolerated. Patient is currently on 11 L high flow requiring more oxygen support today from yesterday. Prognosis is guarded. Objective - Vital Signs Vital signs: Vital Signs Temp 98.4 F 08/04/21 11:00 Pulse 101 H 08/04/21 13:00 Resp 26 H 08/04/21 13:00 BP 124/64 08/04/21 13:00 Pulse Ox 96 08/04/21 13:00 Intake & Output 08/03/21 08/04/21 08/04/21 18:59 06:59 18:59 Intake Total 900 900 375 Output Total 1000 755 235 Balance -100 145 140 Weight 60.4 kg 62.6 kg 62.6 kg Intake: IV 900 900 375 Sodium Chloride 0.45% 1, 900 900 375 000 ml @ 75 mls/hr IV . [id number] [facility] Rx#:[id number] Output: Urine 1000 755 235 Other: Voiding Method Indwelling Catheter Indwelling Catheter Indwelling Catheter - Labs CBC & Chem 7: 08/04/21 05:22 08/04/21 05:22 Labs: Abnormal Lab Results - Last 24 Hours (Table) 08/03/21 08/03/21 08/03/21 Range/Units 10:35 17:51 23:51 WBC (3.8-10.6) k/uL Neutrophils # (1.3-7.7) k/uL Lymphocytes # (1.0-4.8) k/uL D-Dimer (<0.60) mg/L FEU Sodium (137-145) mmol/L Chloride (98-107) mmol/L Carbon Dioxide (22-30) mmol/L BUN (9-20) mg/dL Creatinine (0.66-1.25) mg/dL Glucose (74-99) mg/dL POC Glucose (mg/dL) 131 H 133 H (75-99) mg/dL Calcium (8.4-10.2) mg/dL Total Bilirubin (0.2-1.3) mg/dL AST (17-59) U/L ALT (4-49) U/L Alkaline Phosphatase (38-126) U/L C-Reactive Protein (<1.0) mg/dL Total Protein (6.3-8.2) g/dL Albumin (3.5-5.0) g/dL Procalcitonin 0.11 H (0.02-0.09) ng/mL 08/04/21 08/04/21 08/04/21 Range/Units 05:22 05:22 05:22 WBC 27.3 H (3.8-10.6) k/uL Neutrophils # 26.1 H (1.3-7.7) k/uL Lymphocytes # 0.6 L (1.0-4.8) k/uL D-Dimer 24.30 H (<0.60) mg/L FEU Sodium 131 L (137-145) mmol/L Chloride 108 H (98-107) mmol/L Carbon Dioxide 15 L (22-30) mmol/L BUN 26 H (9-20) mg/dL Creatinine 0.59 L (0.66-1.25) mg/dL Glucose 123 H (74-99) mg/dL POC Glucose (mg/dL) (75-99) mg/dL Calcium 7.8 L (8.4-10.2) mg/dL Total Bilirubin 1.8 H (0.2-1.3) mg/dL AST 84 H (17-59) U/L ALT 53 H (4-49) U/L Alkaline Phosphatase 188 H (38-126) U/L C-Reactive Protein 4.3 H (<1.0) mg/dL Total Protein 5.9 L (6.3-8.2) g/dL Albumin 2.6 L (3.5-5.0) g/dL Procalcitonin (0.02-0.09) ng/mL 08/04/21 Range/Units 11:35 WBC (3.8-10.6) k/uL Neutrophils # (1.3-7.7) k/uL Lymphocytes # (1.0-4.8) k/uL D-Dimer (<0.60) mg/L FEU Sodium (137-145) mmol/L Chloride (98-107) mmol/L Carbon Dioxide (22-30) mmol/L BUN (9-20) mg/dL Creatinine (0.66-1.25) mg/dL Glucose (74-99) mg/dL POC Glucose (mg/dL) 122 H (75-99) mg/dL Calcium (8.4-10.2) mg/dL Total Bilirubin (0.2-1.3) mg/dL AST (17-59) U/L ALT (4-49) U/L Alkaline Phosphatase (38-126) U/L C-Reactive Protein (<1.0) mg/dL Total Protein (6.3-8.2) g/dL Albumin (3.5-5.0) g/dL Procalcitonin (0.02-0.09) ng/mL
--- NOTE | 2021-08-04 16:05 | P.PN ---
Subjective Progress Note Date: 08/04/21 The patient seen at bedside and no acute events overnights. Objective - Vital Signs Vital signs: Vital Signs Temp 98.4 F 08/04/21 11:00 Pulse 113 H 08/04/21 15:00 Resp 20 08/04/21 15:00 BP 129/57 08/04/21 15:00 Pulse Ox 100 08/04/21 15:00 Intake & Output 08/03/21 08/04/21 08/04/21 18:59 06:59 18:59 Intake Total 900 900 675 Output Total 1000 755 355 Balance -100 145 320 Weight 60.4 kg 62.6 kg 62.6 kg Intake: IV 900 900 525 Sodium Chloride 0.45% 1, 900 900 525 000 ml @ 75 mls/hr IV . [id number] [facility] Rx#:[id number] Intake, IV Titration 150 Amount Dextrose 5% in Water 1, 150 000 ml @ 75 mls/hr IV . [id number] [facility] with Sodium Bicarb (1 Meq/ml) 150 ml Rx#:[id number] Output: Urine 1000 755 355 Other: Voiding Method Indwelling Catheter Indwelling Catheter Indwelling Catheter - Exam GENERAL: The patient is lying in bed and is not in acute distress. No carotid bruit bilaterally. NEUROLOGICAL: Higher mental function: The patient is awake, alert, oriented to self and place. He stated the year is 1990and the month is October. He is able to name o bjects correctly (pen, watch and glasses). He is following simple commands. No neglect. Cranial nerves: The pupils are round, equal and reactive to light. VFF are full to confrontation. EOM is intact and no nystagmus. Normal facial sensation. No facial weakness noted. No dysarthria is noted. Tongue is midline and move side to side. Motor: Gait is deferred. The strength is lifting all extremities above gravity without focality. There seems to be decrease tone over upper and normal over lowers. Cerebellum: Had hard time assessing Sensation: Normal. Reflexes (right/left): 1+ throughout. Plantars are downgoing bilaterally. WORK-UP: * CT of the head performed on 07/24/2021 is reported as abnormal area of attenuation within the right cerebellum may reflect vascular insult however underlying lesion or necrotic. Correlate with MRI. * Carotid duplex is reported as there is antegrade flow in the vertebral arteries. Images and measurements suggest 35% stenosis in both internal carotid arteries. * MRI of the brain report is reported as diffuse scattered area of restricted diffusion, correlate for embolic phenomena. In the body they reported it is reported that the patient has diffusion weighted image demonstrated restricted effusion and inferior cerebellar hemispheres bilaterally, scattered area of restricted diffusion in the cerebellum, occipital lobes are noted bilaterally as well as bilateral parietal. Encephalomalacia was noted in the region of the thalamus over the right likely due to chronic vascular insult. Scattered area of hyperdensity present in that. Colossal, periventricular and subcortical white matter on inversion recovery T2-weighted images are currently related to chronic small vessel ischemic changes also noted. I personally reviewed that MRI the brain and I do agree patient has bilateral hemispheric stroke over the cerebellar occipital region parietal, frontal is seems embolic in nature. * CT angiography of the head and neck was reported as atheromatous plaquing present bilaterally slightly greater on the left. No flow limiting stenosis bilateral carotid bifurcation. Finding are stable from 12/04/2019 at. Normal [place]. * CT of the head was ordered as a result because of his altered mental status since reported as in keeping with a finding at recent MRI there are multiple focal area of decreased attenuation involving both cerebellar hemisphere and to a lesser extent the supratentorial region. Findings are compatible embolic ischemic insults.2-D echo was reported as left ventricle size is normal. Moderate consider Limbitrol hypertrophy. Ejection fraction of 55-60%. Left ventricle filling pressure cannot be at estimated due to 8 atrial fibrillation. * Routine EEG is abnormal. The back or slowing suggestive of moderate to severe encephalopathy. There are no focal slowing, epileptiform discharges or seizure in the EEG. Clinical correlation is recommended. * Lipid panel is triglyceride of 104, cholesterol of 96, LDL 28 and HDL of 46. * AST of 115 and ALT of 77 * TSH is 0.112 and the free T4 is 4.06 * Hemoglobin A1c is 9.2 * Vitamin B12 is 2006 177 which is above normal but it's unremarkable. * Serum folate level is 5.70 and the normal supposed to be between 4.4-31 - Labs CBC & Chem 7: 08/04/21 05:22 08/04/21 05:22 Labs: Abnormal Lab Results - Last 24 Hours (Table) 08/03/21 08/03/21 08/03/21 Range/Units 10:35 17:51 23:51 WBC (3.8-10.6) k/uL Neutrophils # (1.3-7.7) k/uL Lymphocytes # (1.0-4.8) k/uL D-Dimer (<0.60) mg/L FEU Sodium (137-145) mmol/L Chloride (98-107) mmol/L Carbon Dioxide (22-30) mmol/L BUN (9-20) mg/dL Creatinine (0.66-1.25) mg/dL Glucose (74-99) mg/dL POC Glucose (mg/dL) 131 H 133 H (75-99) mg/dL Calcium (8.4-10.2) mg/dL Total Bilirubin (0.2-1.3) mg/dL AST (17-59) U/L ALT (4-49) U/L Alkaline Phosphatase (38-126) U/L C-Reactive Protein (<1.0) mg/dL Total Protein (6.3-8.2) g/dL Albumin (3.5-5.0) g/dL Procalcitonin 0.11 H (0.02-0.09) ng/mL 08/04/21 08/04/21 08/04/21 Range/Units 05:22 05:22 05:22 WBC 27.3 H (3.8-10.6) k/uL Neutrophils # 26.1 H (1.3-7.7) k/uL Lymphocytes # 0.6 L (1.0-4.8) k/uL D-Dimer 24.30 H (<0.60) mg/L FEU Sodium 131 L (137-145) mmol/L Chloride 108 H (98-107) mmol/L Carbon Dioxide 15 L (22-30) mmol/L BUN 26 H (9-20) mg/dL Creatinine 0.59 L (0.66-1.25) mg/dL Glucose 123 H (74-99) mg/dL POC Glucose (mg/dL) (75-99) mg/dL Calcium 7.8 L (8.4-10.2) mg/dL Total Bilirubin 1.8 H (0.2-1.3) mg/dL AST 84 H (17-59) U/L ALT 53 H (4-49) U/L Alkaline Phosphatase 188 H (38-126) U/L C-Reactive Protein 4.3 H (<1.0) mg/dL Total Protein 5.9 L (6.3-8.2) g/dL Albumin 2.6 L (3.5-5.0) g/dL Procalcitonin (0.02-0.09) ng/mL 08/04/21 Range/Units 11:35 WBC (3.8-10.6) k/uL Neutrophils # (1.3-7.7) k/uL Lymphocytes # (1.0-4.8) k/uL D-Dimer (<0.60) mg/L FEU Sodium (137-145) mmol/L Chloride (98-107) mmol/L Carbon Dioxide (22-30) mmol/L BUN (9-20) mg/dL Creatinine (0.66-1.25) mg/dL Glucose (74-99) mg/dL POC Glucose (mg/dL) 122 H (75-99) mg/dL Calcium (8.4-10.2) mg/dL Total Bilirubin (0.2-1.3) mg/dL AST (17-59) U/L ALT (4-49) U/L Alkaline Phosphatase (38-126) U/L C-Reactive Protein (<1.0) mg/dL Total Protein (6.3-8.2) g/dL Albumin (3.5-5.0) g/dL Procalcitonin (0.02-0.09) ng/mL Assessment and Plan Assessment: Altered mental status with generalized weakness and dysphagia due to hypoxic encephalopathy from COVID-19 pneumonia ---mentation about same. Delerium due to above Acute/subacute bilateral hemisphere stroke. Seems likely cardioembolic in nature especially with new onset of atrial fibrillation COVID-19 related pneumonia with secondary hypoxic respiratory failure History of old stroke 11/2019 and TIA 01/2020 without residual weakness or focality New-onset atrial fibrillation currently Diabetes mellitus (recent HbA1c is 9.2) Transaminitis and it's trending down Hypertension Hyperlipidemia Plan: * Because of high risk of recurrence of stroke anticoagulation was started. He was started on Eliquis 5 mg 1 tablet twice a day by the ICU team. I stopped aspirin 81 mg to avoid the risk of a bleed especially with the use of anticoagulation. I think down the line within 14 days if the primary team fee ls there is a need for antiplatelets will defer up to them for restarting antiplatelet but for now would recommend holding off. * Continue Lipitor 40 mg daily at bedtime and if patient has worsening of LFT's will go down on dose. * PT, OT and AUDIOPROSTHOLOGIST are consulted * Continue cardiac monitoring * Continue neuro checks * Cardiology is on board. Spoke with cardiology and will abort getting BARBARA. * We'll defer the rest of the medical management to the primary as well as a ICU team. * Upon discharge, the patient needs to follow-up with his neurology team with 1- 2 weeks as outpatient ([facility]). DVT Prophylaxis: On eliquis. CONDITION: Is very guarded. The plan was discussed with the patient's nurse. Kaiser Ochoa M.D. Neuro-hospitalist Time with Patient: Less than 30
--- NOTE | 2021-08-04 16:26 | PN ---
PROGRESS NOTE DATE OF SERVICE: 08/04/2021 REASON FOR FOLLOWUP: COVID-19 pneumonia. INTERVAL HISTORY: The patient is afebrile. The patient is more awake and alert. He is breathing comfortably down to 11 L nasal cannula. Denies any chest pain or worsening cough, no abdominal pain. No diarrhea. EXAMINATION: BP 129/57, pulse of 94, temperature 98.4. He is 99% on 11 L high-flow oxygen. General description is an elderly male lying in bed in no distress. Respiratory system: Unlabored breathing. Decreased intensity in breath sounds. No wheeze. Heart S1, S2. Regular rate and rhythm. Abdomen soft. No tenderness. LABS: Hemoglobin is 15.1, white count 27.3, BUN of 26, creatinine 0.59. DIAGNOSTIC IMPRESSION AND PLAN: 1. Patient with acute COVID-19 pneumonia. Patient is currently on Decadron, baricitinib zinc and ascorbic acid to continue. 2. Elevated white count more likely steroid effect. Inflammatory markers, blood cultures will be repeated tomorrow. 3. Continue supportive care. MMODL / IJN: [id number] /
[2021-08-04 16:49] LABS: Glucose,Whole Blood 196 mg/dL (75-99)
[2021-08-04] MEDS: METOPROLOL TARTRATE 50 MG TAB PO SCH ×2 (17:28→21:09)
[2021-08-04 20:22] LABS: Glucose,Whole Blood 258 mg/dL (75-99)
[2021-08-04] MEDS: ATORVASTATIN 40 MG TAB PO SCH (21:09)
[2021-08-04] MEDS: INSULIN DETEMIR (LEVEMIR) 100 UNIT/ML SYR SQ SCH (21:10)
[2021-08-05] MEDS: DEXTROSE 5% IN WATER 1,000 ML with SODIUM BICARB (1 MEQ/ML) 150 ML IV SCH (03:49)
[2021-08-05 06:28] LABS: Glucose,Whole Blood 119 mg/dL (75-99)
[2021-08-05 06:29] LABS: Basophils # (A) 0.1 k/uL (0-0.2); Basophils % (A) 0 %; Eosinophils # (A) 0.1 k/uL (0-0.7); Eosinophils % (A) 0 %; HCT 45.7 % (39.0-53.0); HGB 14.8 gm/dL (13.0-17.5); Lymphocytes # (A) 0.6 k/uL (1.0-4.8); Lymphocytes % (A) 2 %; MCH 27.5 pg (25.0-35.0); MCHC 32.3 g/dL (31.0-37.0); Monocytes # (A) 0.4 k/uL (0-1.0); Monocytes % (A) 2 %; Neutrophils % (A) 96 %; Platelet Count 208 k/uL (150-450); RBC 5.38 m/uL (4.30-5.90); RDW 13.5 % (11.5-15.5); WBC 25.2 k/uL (3.8-10.6)
[2021-08-05 06:48] LABS: ALT 41 U/L (4-49); AST 57 U/L (17-59); African American GFR (CKD) >90 (>60 ml/min/1.73 sqM); Albumin 2.4 g/dL (3.5-5.0); Alkaline Phosphatase 179 U/L (38-126); Anion Gap 2 mmol/L; Blood Urea Nitrogen 24 mg/dL (9-20); C Reactive Protein 5.8 mg/dL (<1.0); Calcium 7.7 mg/dL (8.4-10.2); Carbon Dioxide 28 mmol/L (22-30); Chloride 101 mmol/L (98-107); Glucose 175 mg/dL (74-99); Non-African American GFR(CKD) >90 (>60 ml/min/1.73 sqM); Potassium 3.7 mmol/L (3.5-5.1); Sodium 131 mmol/L (137-145); Total Bilirubin 1.3 mg/dL (0.2-1.3); Total Protein 5.3 g/dL (6.3-8.2)
--- NOTE | 2021-08-05 06:49 | XR ---
EXAMINATION TYPE: XR chest 1V portable DATE OF EXAM: 08/05/2021 CLINICAL HISTORY: Difficulty breathing progress study. COVID. TECHNIQUE: Single AP portable semiupright view of the chest is obtained. COMPARISON: Chest x-ray from one day earlier and older studies FINDINGS: Stable left-sided PICC line. Partial visualization of surgical change in the cervical spine. Persistent left greater than right bi lateral multifocal and confluent opacities greatest in the periphery. Some silhouetting of left hemid iaphragm redemonstrated. Cardiac silhouette size stable and within normal limits. IMPRESSION: Persistent left greater than right bilateral multifocal confluent opacities greatest in t he periphery consistent with known COVID-19 infection, no significant change from one day earlier.
[2021-08-05] MEDS: INSULIN ASPART (NovoLOG) 100 UNIT/ML VIAL SQ SCH ×4 (06:58→21:00)
[2021-08-05 07:08] LABS: LDH 2286 U/L (313-618)
[2021-08-05] MEDS: ASCORBIC ACID 500 MG TAB PO SCH (08:19)
[2021-08-05] MEDS: METOPROLOL TARTRATE 50 MG TAB PO SCH ×3 (08:19→20:59)
[2021-08-05] MEDS: POTASSIUM CHLORIDE 10 MEQ in WATER FOR INJECTION 1 100ML.BAG IVPB SCH ×2 (08:19→11:47)
[2021-08-05] MEDS: ZINC SULFATE 220 MG CAP PO SCH (08:19)
[2021-08-05] MEDS: CHOLECALCIFEROL 10 MCG (400 IU) TABLET PO SCH (08:19)
[2021-08-05] MEDS: DEXAMETHASONE SOD PHOSPHATE 10 MG/ML 1 ML VIAL IV SCH (08:19)
[2021-08-05] MEDS: BARICITINIB 2 MG TABLET PO SCH (08:20)
[2021-08-05] MEDS: APIXABAN 5 MG TAB PO SCH ×2 (08:20→20:59)
--- NOTE | 2021-08-05 10:03 | P.PN ---
Subjective Progress Note Date: 08/05/21 The patient is seen today 08/05/2021 in follow-up in the intensive care unit. He is currently sitting up in bed. Awake and alert in no acute distress. He is improved today compared to yesterday. He is on 13 L high flow nasal cannula and maintaining O2 saturation low 90s. Chest x-ray reveals persistent left greater than right bilateral multifocal opacities. No significant change. He ate half of his breakfast which is puree. White count 25.2. Hemoglobin 14.8. Lymphocytes 0.6. D-dimer 29. Sodium 1 potassium 3.7. Creatinine was 0.55. LDH 2286. C-reactive protein 5.8. He remains on Baricitinib, anticoagulated with Eliquis, IV Decadron. Remains on vitamin supplements. He has D5 W with 3 A of bicarb at 75 ML's per hour. Objective - Vital Signs Vital signs: Vital Signs Temp 98 F 08/05/21 08:00 Pulse 90 08/05/21 08:00 Resp 23 08/05/21 08:00 BP 141/74 08/05/21 08:00 Pulse Ox 94 L 08/05/21 08:00 Intake & Output 08/04/21 08/05/21 08/05/21 18:59 06:59 18:59 Intake Total 900 900 250 Output Total 465 605 385 Balance 435 295 -135 Weight 62.6 kg Intake: IV 525 Sodium Chloride 0.45% 1, 525 000 ml @ 75 mls/hr IV . [id number] CARISSA Rx#:[id number] Intake, IV Titration 375 900 250 Amount Dextrose 5% in Water 1, 375 900 150 000 ml @ 75 mls/hr IV . [id number] CARISSA with Sodium Bicarb (1 Meq/ml) 150 ml Rx#:[id number] Potassium Chloride 10 meq 100 In Water For Injection 1 100ml.bag @ 100 mls/hr IVPB Q1H CARISSA Rx#: [id number] Output: Urine 465 605 385 Other: Voiding Method Indwelling Catheter Indwelling Catheter - Exam Awake, alert,, calm, and any 5-year-old gentleman, 13 L high flow nasal cannula, comfortable, no agitation, sleepy, his breathing is not labored. Head exam was generally normal. There was no scleral icterus or corneal arcus. Mucous membranes were moist. HEENT: Pupils are round and equally reacting to light. EOMI. No scleral icterus. No conjunctival pallor. Normocephalic, atraumatic. No pharyngeal erythema. No thyromegaly. CARDIOVASCULAR: S1 and S2 present. No murmurs, rubs, or gallops. Tachycardic irregularly irregular rhythm PULMONARY: Diffuse bilateral crackles ABDOMEN: Soft, nontender, nondistended, normoactive bowel sounds. No palpable organomegaly. MUSCULOSKELETAL: No joint swelling or deformity. EXTREMITIES: No cyanosis, clubbing, or pedal edema. NEUROLOGICAL: Neurologically, no facial asymmetry. He is moving his eyes in all different directions. Coughing mechanism is weak. Motor functions are weak in all 4 extremities. The neurologic exam is nonfocal. He is able to follow simple commands and answer simple questions. He is aware of self and place. SKIN: No rashes. Examination of the skin revealed no evidence of significant rashes, suspicious appearing nevi or other concerning lesions. - Labs CBC & Chem 7: 08/05/21 06:11 08/05/21 06:11 Labs: Abnormal Lab Results - Last 24 Hours (Table) 08/04/21 08/04/21 08/04/21 Range/Units 11:35 16:47 20:21 WBC (3.8-10.6) k/uL Neutrophils # (1.3-7.7) k/uL Lymphocytes # (1.0-4.8) k/uL D-Dimer (<0.60) mg/L FEU Sodium (137-145) mmol/L BUN (9-20) mg/dL Creatinine (0.66-1.25) mg/dL Glucose (74-99) mg/dL POC Glucose (mg/dL) 122 H 196 H 258 H (75-99) mg/dL Calcium (8.4-10.2) mg/dL Alkaline Phosphatase (38-126) U/L Lactate Dehydrogenase (313-618) U/L C-Reactive Protein (<1.0) mg/dL Total Protein (6.3-8.2) g/dL Albumin (3.5-5.0) g/dL 08/05/21 08/05/21 08/05/21 Range/Units 06:11 06:11 06:11 WBC 25.2 H (3.8-10.6) k/uL Neutrophils # 24.0 H (1.3-7.7) k/uL Lymphocytes # 0.6 L (1.0-4.8) k/uL D-Dimer 29.09 H (<0.60) mg/L FEU Sodium 131 L (137-145) mmol/L BUN 24 H (9-20) mg/dL Creatinine 0.55 L (0.66-1.25) mg/dL Glucose 175 H (74-99) mg/dL POC Glucose (mg/dL) (75-99) mg/dL Calcium 7.7 L (8.4-10.2) mg/dL Alkaline Phosphatase 179 H (38-126) U/L Lactate Dehydrogenase 2286 H (313-618) U/L C-Reactive Protein 5.8 H (<1.0) mg/dL Total Protein 5.3 L (6.3-8.2) g/dL Albumin 2.4 L (3.5-5.0) g/dL 08/05/21 Range/Units 06:26 WBC (3.8-10.6) k/uL Neutrophils # (1.3-7.7) k/uL Lymphocytes # (1.0-4.8) k/uL D-Dimer (<0.60) mg/L FEU Sodium (137-145) mmol/L BUN (9-20) mg/dL Creatinine (0.66-1.25) mg/dL Glucose (74-99) mg/dL POC Glucose (mg/dL) 119 H (75-99) mg/dL Calcium (8.4-10.2) mg/dL Alkaline Phosphatase (38-126) U/L Lactate Dehydrogenase (313-618) U/L C-Reactive Protein (<1.0) mg/dL Total Protein (6.3-8.2) g/dL Albumin (3.5-5.0) g/dL Assessment and Plan Assessment: 1 COVID-19 related pneumonia with secondary hypoxic respiratory failure. Patient was found to be symptomatic approximately a week ago and his condition has progressed significantly and currently is on high flow oxygen at 13 L, clini anna stable and the patient's chest x-ray from today is showing bilateral pulmonary infiltrates, diffuse consistent with COVID-19 related pneumonia and overall oxygenation status has remained unchanged. Breathing is non labored. The patient remains on Decadron and Baricitinib. Anticoagulated with Eliquis. His chest x-ray findings are essentially unchanged. Overall respiratory status is unchanged and the patient is kept on 13 L high flow nasal cannula. 2 acute hypoxic respiratory failure secondary to above, currently on 13 L by nasal cannula 3 altered mentation with diminished level of consciousness likely secondary to COVID-19 related encephalopathy. The patient has embolic strokes bilaterally as confirmed by the CAT scan of the brain and MRI. He is currently on Eliquis. No signs of any hemorrhagic transformation. Please refer to the CAT scan of the brain done yesterday. He is currently on a combination of aspirin and Eliquis. 4 mild leukocytosis with a white cell count of 25.2. The pro calcitonin level was 0.11. Continue Baricitinib 5 elevated inflammatory markers secondary to above, needs to be followed 6 non-anion gap metabolic acidosis, and the bicarb deficit these to be replaced 7 diabetes mellitus 8 hypertension 9 hyperlipidemia 10 Chronic atrial fibrillation, currently on Lopressor for rate control 50 three times a day, currently on Eliquis Plan The patient was seen and evaluated by Dr. Conteh Chest x-ray and labs reviewed Continue bicarb drip 0.9 normal saline 75 ML's per hour Treat the FiO2 as tolerated Continue the current treatment plan We will continue to follow I, the cosigning physician, performed a history & physical examination of the patient. Lungs sounds with crackles in the bilateral bases. Maintaining good O2 saturations in the 90s on 13 L high flow nasal cannula. I discussed the assessment and plan of care with my nurse practitioner, Mirna Ray. I attest to the above note as dictated by her.
[2021-08-05 11:31] LABS: Glucose,Whole Blood 144 mg/dL (75-99)
[2021-08-05] MEDS: SODIUM CHLORIDE 0.9% 1,000 ML IV SCH (11:46)
--- NOTE | 2021-08-05 12:16 | P.PN ---
Subjective Progress Note Date: 08/05/21 The patient is seen at bedside and he feels he is doing well. Objective - Vital Signs Vital signs: Vital Signs Temp 98.1 F 08/05/21 09:00 Pulse 91 08/05/21 11:00 Resp 30 H 08/05/21 11:00 BP 114/63 08/05/21 11:00 Pulse Ox 92 L 08/05/21 11:00 Intake & Output 08/04/21 08/05/21 08/05/21 18:59 06:59 18:59 Intake Total 900 900 650 Output Total 465 605 525 Balance 435 295 125 Weight 62.6 kg Intake: IV 525 75 Sodium Chloride 0.45% 1, 525 000 ml @ 75 mls/hr IV . [id number] CARISSA Rx#:[id number] ns 75 Intake, IV Titration 375 900 575 Amount Dextrose 5% in Water 1, 375 900 225 000 ml @ 75 mls/hr IV . [id number] CARISSA with Sodium Bicarb (1 Meq/ml) 150 ml Rx#:[id number] Potassium Chloride 10 meq 200 In Water For Injection 1 100ml.bag @ 100 mls/hr IVPB Q1H CARISSA Rx#: [id number] Sodium Chloride 0.9% 1, 150 000 ml @ 75 mls/hr IV . [id number] CARISSA Rx#:[id number] Output: Urine 465 605 525 Other: Voiding Method Indwelling Catheter Indwelling Catheter Indwelling Catheter - Exam GENERAL: The patient is lying in bed and is not in acute distress. No carotid bruit bilaterally. NEUROLOGICAL: Higher mental function: The patient is awake, alert, oriented to self and place. He stated the year is 1990and the month is July. He is able to name objects correctly (pen, watch and glasses). He is following simple commands. No neglect. Cranial nerves: The pupils are round, equal and reactive to light. VFF are full to confrontation. EOM is intact and no nystagmus. Normal facial sensation. No facial weakness noted. No dysarthria is noted. Tongue is midline and move side to side. Motor: Gait is deferred. The strength is lifting all extremities above gravity but I felt the patient has more weakness over the right upper extremity compared to my prior examination. There seems to be decrease tone over upper > lowers. Cerebellum: Had hard time assessing Sensation: Normal. Reflexes (right/left): 1+ throughout. Plantars are downgoing bilaterally. WORK-UP: * CT of the head performed on 07/24/2021 is reported as abnormal area of attenuation within the right cerebellum may reflect vascular insult however underlying lesion or necrotic. Correlate with MRI. * Carotid duplex is reported as there is antegrade flow in the vertebral arteries. Images and measurements suggest 35% stenosis in both internal carotid arteries. * MRI of the brain report is reported as diffuse scattered area of restricted diffusion, correlate for embolic phenomena. In the body they reported it is reported that the patient has diffusion weighted image demonstrated restricted effusion and inferior cerebellar hemispheres bilaterally, scattered area of restricted diffusion in the cerebellum, occipital lobes are noted bilaterally as well as bilateral parietal. Encephalomalacia was noted in the region of the thalamus over the right likely due to chronic vascular insult. Scattered area of hyperdensity present in that. Colossal, periventricular and subcortical white matter on inversion recovery T2-weighted images are currently related to chronic small vessel ischemic changes also noted. I pe rsonally reviewed that MRI the brain and I do agree patient has bilateral hemispheric stroke over the cerebellar occipital region parietal, frontal is seems embolic in nature. * CT angiography of the head and neck was reported as atheromatous plaquing present bilaterally slightly greater on the left. No flow limiting stenosis bilateral carotid bifurcation. Finding are stable from 12/04/2019 at. Normal [place]. * CT of the head was ordered as a result because of his altered mental status since reported as in keeping with a finding at recent MRI there are multiple focal area of decreased attenuation involving both cerebellar hemisphere and to a lesser extent the supratentorial region. Findings are compatible embolic ischemic insults.2-D echo was reported as left ventricle size is normal. Moderate consider Limbitrol hypertrophy. Ejection fraction of 55-60%. Left ventricle filling pressure cannot be at estimated due to 8 atrial fibrillation. * Routine EEG is abnormal. The back or slowing suggestive of moderate to severe encephalopathy. There are no focal slowing, epileptiform discharges or seizure in the EEG. Clinical correlation is recommended. * Lipid panel is triglyceride of 104, cholesterol of 96, LDL 28 and HDL of 46. * AST of 115 and ALT of 77 * TSH is 0.112 and the free T4 is 4.06 * Hemoglobin A1c is 9.2 * Vitamin B12 is 2006 which is above normal but it's unremarkable. * Serum folate level is 5.70 and the normal supposed to be between 4.4-31 - Labs CBC & Chem 7: 08/05/21 06:11 08/05/21 06:11 Labs: Abnormal Lab Results - Last 24 Hours (Table) 08/04/21 08/04/21 08/04/21 Range/Units 11:35 16:47 20:21 WBC (3.8-10.6) k/uL Neutrophils # (1.3-7.7) k/uL Lymphocytes # (1.0-4.8) k/uL D-Dimer (<0.60) mg/L FEU Sodium (137-145) mmol/L BUN (9-20) mg/dL Creatinine (0.66-1.25) mg/dL Glucose (74-99) mg/dL POC Glucose (mg/dL) 122 H 196 H 258 H (75-99) mg/dL Calcium (8.4-10.2) mg/dL Alkaline Phosphatase (38-126) U/L Lactate Dehydrogenase (313-618) U/L C-Reactive Protein (<1.0) mg/dL Total Protein (6.3-8.2) g/dL Albumin (3.5-5.0) g/dL 08/05/21 08/05/21 08/05/21 Range/Units 06:11 06:11 06:11 WBC 25.2 H (3.8-10.6) k/uL Neutrophils # 24.0 H (1.3-7.7) k/uL Lymphocytes # 0.6 L (1.0-4.8) k/uL D-Dimer 29.09 H (<0.60) mg/L FEU Sodium 131 L (137-145) mmol/L BUN 24 H (9-20) mg/dL Creatinine 0.55 L (0.66-1.25) mg/dL Glucose 175 H (74-99) mg/dL POC Glucose (mg/dL) (75-99) mg/dL Calcium 7.7 L (8.4-10.2) mg/dL Alkaline Phosphatase 179 H (38-126) U/L Lactate Dehydrogenase 2286 H (313-618) U/L C-Reactive Protein 5.8 H (<1.0) mg/dL Total Protein 5.3 L (6.3-8.2) g/dL Albumin 2.4 L (3.5-5.0) g/dL 08/05/21 08/05/21 Range/Units 06:26 11:30 WBC (3.8-10.6) k/uL Neutrophils # (1.3-7.7) k/uL Lymphocytes # (1.0-4.8) k/uL D-Dimer (<0.60) mg/L FEU Sodium (137-145) mmol/L BUN (9-20) mg/dL Creatinine (0.66-1.25) mg/dL Glucose (74-99) mg/dL POC Glucose (mg/dL) 119 H 144 H (75-99) mg/dL Calcium (8.4-10.2) mg/dL Alkaline Phosphatase (38-126) U/L Lactate Dehydrogenase (313-618) U/L C-Reactive Protein (<1.0) mg/dL Total Protein (6.3-8.2) g/dL Albumin (3.5-5.0) g/dL Assessment and Plan Assessment: Altered mental status with generalized weakness and dysphagia due to hypoxic encephalopathy from COVID-19 pneumonia ---mentation about same. Delerium due to above Acute/subacute bilateral hemisphere stroke. Seems likely cardioembolic in nature especially with new onset of atrial fibrillation COVID-19 related pneumonia with secondary hypoxic respiratory failure History of old stroke 11/2019 and TIA 01/2020 without residual weakness or focality New-onset atrial fibrillation currently Diabetes mellitus (recent HbA1c is 9.2) Transaminitis and it's trending down Hypertension Hyperlipidemia Plan: * On Eliquis 5 mg 1 tablet twice since has history of atrial fibrillation. I stopped aspirin 81mg on 08/04/2021 to avoid the risk of a bleed especially with the use of anticoagulation and his recent stroke. I think down the line within 14 days if the primary team feels there is a need for antiplatelets will defer up to them for restarting antiplatelet but for now would recommend holding off. Continue Lipitor 40 mg daily at bedtime and if patient has worsening of LFT's will go down on dose. * Ordered repeat CT head since I felt his right arm seems weaker today compared to yesterday. * PT, OT and MARKING MACHINE TENDER are consulted * Continue cardiac monitoring * Continue neuro checks * Cardiology is on board. Spoke with cardiology and will abort getting BARBARA. * We'll defer the rest of the medical management to the primary as well as a ICU team. * Upon discharge, the patient needs to follow-up with his neurology team with 1- 2 weeks as outpatient ([facility]). DVT Prophylaxis: On eliquis. CONDITION: Is very guarded. Kaiser Ochoa M.D. Neuro-hospitalist Time with Patient: Less than 30
[2021-08-05] MEDS ORDERED: Potassium Replacement Protocol 1 EACH MISC MISCELLANE PRN (15:19)
--- NOTE | 2021-08-05 15:23 | CT ---
EXAMINATION TYPE: CT brain wo con DATE OF EXAM: 08/05/2021 COMPARISON: 08/03/2021 HISTORY: AMS, right arm weakness, R/O bleed or new stroke, Covid. CT DLP: 1217.4 mGycm Automated exposure control for dose reduction was used. There is cerebral cortical atrophy. There is no mass effect nor midline shift. There is no sign of in tracranial hemorrhage. Calvarium is intact. There is 8 mm lacunar infarct in the medial right thalamu s. There is small mucus retention cyst right maxillary sinus. IMPRESSION: Cerebral atrophy. No acute intracranial abnormality. No change. Old right thalamic lacunar infarct.
--- NOTE | 2021-08-05 15:25 | P.PN ---
Subjective Progress Note Date: 08/05/21 Patient is a 75 -year-old pleasant male was transferred from a outside hospital for atrial fibrillation with rapid ventricular rate. Patient is presently on therapeutic dose of Lovenox. Also has highly elevated INR. His baseline creatinine is unknown but his present creatinine is around the 0.66, patient is receiving half-normal saline at 75 mL per hour patient is also on Remdesivir, presently on 15 L of oxygen, CT of the chest did not show any pulmonary embolism but did show diffuse infiltrate patient was having symptoms for about 4 days patient was unable to provide much of history to me patient is too tired and weak. Patient is not tolerating any by mouth medications at this time because of which patient was started on IV Cardizem patient usually takes metoprolol 25 twice a day. Patient doesn't have any history of congestive heart failure. Patient was started on Decadron as well. Patient has highly elevated d-dimer. 08/01/2021 Patient is seen in follow-up continues to be closely monitored in the ICU. Patient is extremely lethargic although is arousable and intermittently respo nding appropriately to questions and commands. Patient continues to have delayed response and altered mental status and CT of the brain was ordered. Neurology has been consulted and pulmonary along with urology following closely. She continues on IV heparin along with IV Cardizem. white blood count is 14.1, hemoglobin is stable at 16.1, d-dimer is above 34.10, sodium is 141 with a potassium of 4.5 and current creatinine is 0.61. LDH is 30-55 and CRP is 6.3. TSH is 0.112 and free T4 is 4.06. patient is maintained on 15 L high flow nasal cannula along with occasional intermittent nonrebreather. Patient is afebrile. 08/02/2021 Patient is seen in follow up this morning and is being closely monitored in the ICU with multiple medical consultations following including pulmonary, infectious disease, cardiology, and neurology. CT of the brain recommending MRI and this is ordered and pending. Patient is on 13L HF nasal cannula. Mentation slowly improving and answering questions appropriately. Patient continues to be extremely weak and fatigues easily. Cardiology planning to transition cardizem to oral and possibly starting eliquis. 08/03/2021 Patient is seen and evaluated in follow-up this morning and patient continues to improve although continues to be extremely weak and fatigued. Multiple medical consultations following an neurology recommending BARBARA although was reviewed by cardiology and no plans for BARBARA at this time as MRI along with CT confirms embolic stroke with MRI showing a few scattered areas of restricted diffusion in the inferior cerebellar hemispheres bilaterally with scattered areas of restricted diffusion present in the cerebellum, occipital lobes, as well as bilateral parietal lobes. Patient continued on subcutaneous heparin with discussion of possibly starting Eliquis in the next 2 days. Patient has been started on Brilinta an neurology is following closely. Speech has evaluated the patient and recommending continuing the patient with nothing by mouth except medications as the swallow eval was not able to be completed due to extreme fatigue and lethargy. Speech will reevaluate the patient once more alert and awake. White blood count today is 17.6 with a hemoglobin of 14.6, d-dimer is elevated at 27.78, sodium is 135 with a potassium of 3.6, BUN is 33 and creatinine is 0.59. Blood sugars are being closely monitored. Repeat x-ray and labs along with inflammatory markers in the a.m. Continuing to wean as tolerated and patient is maintained on 9 L high flow and maintaining oxygen saturations of 97%. Patient with atrial fibrillation currently rate controlled with metoprolol and cardiology is following. 08/04/2021 Patient is seen in follow-up this morning continues to be in the ICU and continues to drift often fall asleep easily although mentation has improved. Patient states the year as 1990 but also states he knows that is wrong and states he is currently in the hospital for Covid but was unaware of any recent stroke. Right side environmental analyst strength 4/5 improving although patient is unable to completely lift extremity and left side environmental analyst strength continues to be weak 2/5 and completely unable to lift this extremity. Multiple medical consultations including neurology, cardiology, formula mixer along with infectious disease following closely. Patient being resumed on Eliquis and Brilinta has been discontinued. Chest x-ray today shows diffuse mild infiltrates greater on the left that can be compatible with atypical pneumonia. Awaiting repeat swallow eval today with the possibility of TPN for enteral nutrition as patient has been nothing by mouth. Patient continues on 11 L high flow and recommend to wean as tolerated. White blood count today is 27.3 with a hemoglobin of 15.6, d-dimer is 24.3, sodium is 131 with a potassium of 4.9, BUN is 26 and creatinine is 0.59. CRP is 4.3. Patient continues on baricitinib along with dexamethasone and vitamin and zinc supplements and will continue. 08/05/2021 Patient is evaluated today in the ICU, he is maintained on a BiPAP at the time of my assessment. Plan is to titrate oxygen as needed. Chest x-ray today reveals persistent left greater than right bilateral multifocal opacities. Labs are reviewed, White blood cell count 25.2. His d-dimer today is elevated at 29.09 which is slightly increased. LDH is 2286, CRP 5.8, pro calcitonin 0.07. Sodium today is 131. Vital signs include blood pressure 113/62. Respirations are 20s. Patient has remained afebrile. Swallow evaluation was conducted again today for follow-up for dysphagia intervention, that recommendations are for dysphagia 1. With honey thick liquid, supervision with basic needs. Patient ne eds one-to-one feeding with cues to swallow. Patient continues on baricitinib along with dexamethasone and vitamin and zinc supplements and will continue. Patient was evaluated by neurology today who feels as increasing right-sided weakness. Brain CT of the head initially reveals an embolic ischemic insults. A repeat brain CT has been ordered to compare. We will hold off any BARBARA at this time per neurology and cardiogenic recommendations. Review of systems: Constitutional: reports of fatigue, no reports of fever, or chills Cardiovascular: No reports of chest pain or palpitations Respiratory: reports of shortness of breath GI: No reports of nausea, vomiting, or diarrhea : No reports of dysuria or retention Neurovascular: reports of weakness All medications have been reviewed PHYSICAL EXAMINATION: GENERAL: The patient is alert and oriented x2-3 extremely lethargic and fatigues easily and falls back asleep. He is quite sleepy the time of my examination. Well developed, well nourished. HEENT: Pupils are round and equally reacting to light. EOMI. No scleral icterus. No conjunctival pallor. Normocephalic, atraumatic. No pharyngeal erythema. No thyromegaly. CARDIOVASCULAR: S1 and S2 muffled. irregularly irregular rhythm PULMONARY: Diffuse bilateral coarse rhonchi noted with diminished breath sounds at the bases ABDOMEN: Soft, nontender, nondistended, normoactive bowel sounds. No palpable organomegaly. MUSCULOSKELETAL: No joint swelling or deformity. EXTREMITIES: No cyanosis, clubbing, or pedal edema. NEUROLOGICAL: Diffusely weak, a complete neurological examination is difficult the time of assessment. SKIN: No rashes. Assessment and plan: -Covid 19 pneumonia: Patient will be continued on Baricitinib, IV dexamethasone, zinc, and vitamin supplements, and patient is starting eliquis. Aspirin has been discontinued from neurology standpoint. Inflammatory markers remain elevated, pro calcitonin is 0.07 which does not suggest any bacterial etiology for his pneumonia. 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 We'll continue sliding scale and long- acting and recommended Accu-Cheks before meals and at bedtime -Hyperlipidemia -Hypertension, lisinopril and amlodipine on hold -DVT prophylaxis: eliquis -full code Plan: Patient to continue on current medications and is being started on oral eliquis and continued on metoprolol and aspirin. Patient was positive for stroke on MRI with possible embolic phenomena and BARBARA was requested although cardiology is not recommending BARBARA at this time. Neurology has agreed and BARBARA will be foregone at this time. Multiple medical consultations including ID, neurology, pulmonary and cardiology following closely. Patient continues to be extremely lethargic and fatigues easily and mentation has improved from initial presentation and patient is able to stay awake longer to converse although fatigues easily and is not completely alert and oriented 3. Neurology's evaluation today suggested the patient is having some increasing right upper extremity weakness and a repeat brain CT has been ordered. Patient did receive a PICC line for possible nutritional support as patient continues to be extremely lethargic. Repeat swallow eval today was done and patient is placed on consistent carb dysphasia 1 pured diet with honey thickened liquids and aspiration precautions with head of the bed elevated 30-45 and one-to-one supervision with meals. Wean FI02 as tolerated. Patient is currently on 9 L high flow requiring more oxygen support today from yesterday. BiPAP as needed. Prognosis is guarded. Repeat labs in the morning. Objective - Vital Signs Vital signs: Vital Signs Temp 98.1 F 08/05/21 12:00 Pulse 89 08/05/21 14:00 Resp 20 08/05/21 14:00 BP 113/62 08/05/21 14:00 Pulse Ox 95 08/05/21 14:00 Intake & Output 08/04/21 08/05/21 08/05/21 18:59 06:59 18:59 Intake Total 900 900 800 Output Total 465 605 615 Balance 435 295 185 Weight 62.6 kg Intake: IV 525 75 Sodium Chloride 0.45% 1, 525 000 ml @ 75 mls/hr IV . [id number] CARISSA Rx#:[id number] ns 75 Intake, IV Titration 375 900 725 Amount Dextrose 5% in Water 1, 375 900 225 000 ml @ 75 mls/hr IV . [id number] CARISSA with Sodium Bicarb (1 Meq/ml) 150 ml Rx#:[id number] Potassium Chloride 10 meq 200 In Water For Injection 1 100ml.bag @ 100 mls/hr IVPB Q1H CARISSA Rx#: [id number] Sodium Chloride 0.9% 1, 300 000 ml @ 75 mls/hr IV . [id number] CARISSA Rx#:[id number] Output: Urine 465 605 615 Other: Voiding Method Indwelling Catheter Indwelling Catheter Indwelling Catheter - Labs CBC & Chem 7: 08/05/21 06:11 08/05/21 06:11 Labs: Abnormal Lab Results - Last 24 Hours (Table) 08/04/21 08/04/21 08/05/21 Range/Units 16:47 20:21 06:11 WBC 25.2 H (3.8-10.6) k/uL Neutrophils # 24.0 H (1.3-7.7) k/uL Lymphocytes # 0.6 L (1.0-4.8) k/uL D-Dimer (<0.60) mg/L FEU Sodium (137-145) mmol/L BUN (9-20) mg/dL Creatinine (0.66-1.25) mg/dL Glucose (74-99) mg/dL POC Glucose (mg/dL) 196 H 258 H (75-99) mg/dL Calcium (8.4-10.2) mg/dL Alkaline Phosphatase (38-126) U/L Lactate Dehydrogenase (313-618) U/L C-Reactive Protein (<1.0) mg/dL Total Protein (6.3-8.2) g/dL Albumin (3.5-5.0) g/dL 08/05/21 08/05/21 08/05/21 Range/Units 06:11 06:11 06:26 WBC (3.8-10.6) k/uL Neutrophils # (1.3-7.7) k/uL Lymphocytes # (1.0-4.8) k/uL D-Dimer 29.09 H (<0.60) mg/L FEU Sodium 131 L (137-145) mmol/L BUN 24 H (9-20) mg/dL Creatinine 0.55 L (0.66-1.25) mg/dL Glucose 175 H (74-99) mg/dL POC Glucose (mg/dL) 119 H (75-99) mg/dL Calcium 7.7 L (8.4-10.2) mg/dL Alkaline Phosphatase 179 H (38-126) U/L Lactate Dehydrogenase 2286 H (313-618) U/L C-Reactive Protein 5.8 H (<1.0) mg/dL Total Protein 5.3 L (6.3-8.2) g/dL Albumin 2.4 L (3.5-5.0) g/dL 08/05/21 Range/Units 11:30 WBC (3.8-10.6) k/uL Neutrophils # (1.3-7.7) k/uL Lymphocytes # (1.0-4.8) k/uL D-Dimer (<0.60) mg/L FEU Sodium (137-145) mmol/L BUN (9-20) mg/dL Creatinine (0.66-1.25) mg/dL Glucose (74-99) mg/dL POC Glucose (mg/dL) 144 H (75-99) mg/dL Calcium (8.4-10.2) mg/dL Alkaline Phosphatase (38-126) U/L Lactate Dehydrogenase (313-618) U/L C-Reactive Protein (<1.0) mg/dL Total Protein (6.3-8.2) g/dL Albumin (3.5-5.0) g/dL
[2021-08-05] MEDS ORDERED: POTASSIUM CHLORIDE ER 20 MEQ TAB.ER PO SCH (16:00)
[2021-08-05 16:18] LABS: Glucose,Whole Blood 120 mg/dL (75-99)
--- NOTE | 2021-08-05 18:12 | PN ---
PROGRESS NOTE DATE OF SERVICE: 08/05/2021 REASON FOR FOLLOWUP: COVID-19 pneumonia. INTERVAL HISTORY: The patient is afebrile. The patient is more awake, alert. He is currently on 9 L high-flow oxygen. The patient denies having any chest pain, worsening cough. No abdominal pain or diarrhea. PHYSICAL EXAMINATION: Blood pressure 109/68 with a pulse of 80, temperature 98.1. He is 95% on 9 L nasal cannula. General description is an elderly male lying in bed in no distress. Respiratory system: Unlabored breathing, decreased breath sounds in the base, with no wheeze. Heart S1, S2. Regular rate and rhythm. Abdomen soft, no tenderness. LABS: Hemoglobin is 14, white count 25.2. BUN of 24, creatinine 0.99, and D-dimer is 29.09. DIAGNOSTIC IMPRESSION AND PLAN: Patient with acute COVID-19 pneumonia slowly clinical improvement. The patient is currently on dexamethasone, Eliquis, zinc and ascorbic acid, to continue along with respiratory support. Monitor clinical course closely. MMODL / IJN: [id number] /
[2021-08-05 20:00] LABS: Glucose,Whole Blood 223 mg/dL (75-99)
[2021-08-05] MEDS: ATORVASTATIN 40 MG TAB PO SCH (20:59)
[2021-08-05] MEDS: INSULIN DETEMIR (LEVEMIR) 100 UNIT/ML SYR SQ SCH (20:59)
[2021-08-06] MEDS: SODIUM CHLORIDE 0.9% 1,000 ML IV SCH ×3 (01:14→17:42)
[2021-08-06 04:20] LABS: Basophils # (A) 0.1 k/uL (0-0.2); Basophils % (A) 0 %; Eosinophils # (A) 0.1 k/uL (0-0.7); Eosinophils % (A) 0 %; HCT 44.5 % (39.0-53.0); HGB 14.3 gm/dL (13.0-17.5); Lymphocytes # (A) 0.6 k/uL (1.0-4.8); Lymphocytes % (A) 2 %; MCH 27.8 pg (25.0-35.0); MCHC 32.2 g/dL (31.0-37.0); MCV 86.5 fL (80.0-100.0); Mean Platelet Volume 9.1; Monocytes # (A) 0.4 k/uL (0-1.0); Monocytes % (A) 2 %; Neutrophils # (A) 23.3 k/uL (1.3-7.7); Neutrophils % (A) 95 %; Platelet Count 211 k/uL (150-450); RBC 5.15 m/uL (4.30-5.90); RDW 13.7 % (11.5-15.5); WBC 24.6 k/uL (3.8-10.6)
[2021-08-06 04:42] LABS: ALT 48 U/L (4-49); AST 56 U/L (17-59); African American GFR (CKD) >90 (>60 ml/min/1.73 sqM); Albumin 2.3 g/dL (3.5-5.0); Alkaline Phosphatase 192 U/L (38-126); Anion Gap 2 mmol/L; Blood Urea Nitrogen 24 mg/dL (9-20); C Reactive Protein 5.6 mg/dL (<1.0); Calcium 7.8 mg/dL (8.4-10.2); Carbon Dioxide 24 mmol/L (22-30); Chloride 106 mmol/L (98-107); Glucose 110 mg/dL (74-99); Magnesium 1.9 mg/dL (1.6-2.3); Non-African American GFR(CKD) >90 (>60 ml/min/1.73 sqM); Potassium 4.1 mmol/L (3.5-5.1); Sodium 132 mmol/L (137-145); Total Protein 5.1 g/dL (6.3-8.2)
[2021-08-06 05:00] LABS: LDH 2152 U/L (313-618)
[2021-08-06] MEDS ORDERED: Magnesium Replacement Protocol 1 EACH MISC MISCELLANE PRN (05:04)
[2021-08-06] MEDS: MAGNESIUM SULFATE-D5W PMX 1 GM in DEXTROSE/WATER 1 100ML.BAG IVPB SCH ×2 (05:50→06:54)
--- NOTE | 2021-08-06 06:15 | XR ---
EXAMINATION TYPE: XR chest 1V portable DATE OF EXAM: 08/06/2021 CLINICAL HISTORY: Difficulty breathing progress study. COVID. TECHNIQUE: Single AP portable semiupright view of the chest is obtained. COMPARISON: Chest x-ray from one day earlier and older studies. FINDINGS: Stable left-sided PICC line. Partial visualization of surgical change in the cervical spine. Persistent left greater than right bi lateral multifocal and confluent opacities greatest in the periphery. Some silhouetting of left hemid iaphragm redemonstrated. Cardiac silhouette size stable and within normal limits. IMPRESSION: Persistent left greater than right bilateral multifocal and confluent opacities greatest in the periphery consistent with known COVID-19 infection, no significant change from one day earlier .
[2021-08-06 06:54] LABS: Glucose,Whole Blood 104 mg/dL (75-99)
[2021-08-06] MEDS: INSULIN ASPART (NovoLOG) 100 UNIT/ML VIAL SQ SCH ×4 (06:54→20:52)
[2021-08-06] MEDS: BARICITINIB 2 MG TABLET PO SCH (08:09)
[2021-08-06] MEDS: DEXAMETHASONE SOD PHOSPHATE 10 MG/ML 1 ML VIAL IV SCH (08:09)
[2021-08-06] MEDS: APIXABAN 5 MG TAB PO SCH ×2 (08:09→20:57)
[2021-08-06] MEDS: METOPROLOL TARTRATE 50 MG TAB PO SCH ×3 (08:09→20:57)
[2021-08-06] MEDS: ASCORBIC ACID 500 MG TAB PO SCH (08:09)
[2021-08-06] MEDS: CHOLECALCIFEROL 10 MCG (400 IU) TABLET PO SCH (08:09)
[2021-08-06] MEDS: ZINC SULFATE 220 MG CAP PO SCH (08:09)
[2021-08-06] MEDS ORDERED: CALCIUM CARBONATE 500 MG CHEWABLE PO PRN (08:29)
[2021-08-06] MEDS: PANTOPRAZOLE 40 MG/10 ML VIAL IVP SCH (08:36)
--- NOTE | 2021-08-06 10:05 | P.PN ---
Subjective Progress Note Date: 08/06/21 08/06/2021, seeing this patient for a follow-up. The patient remains in intensive care unit for COVID-19 related pneumonia and secondary respiratory failure. He was having more difficulties in breathing yesterday. At one point, he came as high as 15 L of oxygen by nasal cannula. Currently is down to 9 L. He is on Decadron 6 mg IV every 24 hours and he remains on Baricitinib. Chest x-ray still showing diffuse but the pulmonary infiltrates consistent with COVID- 19 related pneumonia. In terms of inflammatory markers, d-dimer still elevated at 26 and LDH level is at 2152 with a CRP level of 5.6. He is afebrile. He is hemodynamically stable. Is producing adequate amount of urine output. He remains on anticoagulation with Eliquis at a dose of 5 mg by mouth twice a day. Rest of the blood work essentially stable. His creatinine is at 0.5 with a BUN of 24. White cell count is 24. Adequate urine output. He remains on normal saline at the rate of 75 mL an hour. Cardiac rhythm is still in atrial fibrillation. Rate is controlled for now. He did have a bout of heartburn this morning and he was given Tums and he improved. He is taking applesauce and he is advancing his diet as tolerated. No agitation. No restlessness. Mental status is improved considerably. His communicating. He is alert. 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 The repeat CAT scan of the brain was done yesterday and showed cerebral atrophy without any new changes. 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 No evidence of any acute bleeding. His bicarb deficit has also been corrected. Objective - Vital Signs Vital signs: Vital Signs Temp 98.8 F 08/06/21 08:00 Pulse 98 08/06/21 08:30 Resp 27 H 08/06/21 08:30 BP 115/51 08/06/21 08:30 Pulse Ox 85 L 08/06/21 08:30 Intake & Output 08/05/21 08/06/21 08/06/21 18:59 06:59 18:59 Intake Total 1200 975 225 Output Total 900 665 80 Balance 300 310 145 Weight 60.1 kg Intake: IV 75 150 75 Dextrose 5% in Water 1, 0 000 ml @ 75 mls/hr IV . [id number] CARISSA with Sodium Bicarb (1 Meq/ml) 150 ml Rx#:[id number] Sodium Chloride 0.9% 1, 150 75 000 ml @ 75 mls/hr IV . [id number] CARISSA Rx#:[id number] ns 75 Intake, IV Titration 1025 825 Amount Dextrose 5% in Water 1, 225 000 ml @ 75 mls/hr IV . [id number] CARISSA with Sodium Bicarb (1 Meq/ml) 150 ml Rx#:[id number] Potassium Chloride 10 meq 200 In Water For Injection 1 100ml.bag @ 100 mls/hr IVPB Q1H CARISSA Rx#: [id number] Sodium Chloride 0.9% 1, 600 825 000 ml @ 75 mls/hr IV . [id number] CARISSA Rx#:[id number] Oral 100 150 Output: Urine 900 665 80 Other: Voiding Method Indwelling Catheter Indwelling Catheter Indwelling Catheter - Exam Lethargic, calm, comfortable, no agitation, sleepy, his breathing is not labored. Currently off of 9 L high flow Head exam was generally normal. There was no scleral icterus or corneal arcus. Mucous membranes were moist. HEENT: Pupils are round and equally reacting to light. EOMI. No scleral icterus. No conjunctival pallor. Normocephalic, atraumatic. No pharyngeal erythema. No thyromegaly. CARDIOVASCULAR: S1 and S2 present. No murmurs, rubs, or gallops. Tachycardic irregularly irregular rhythm PULMONARY: Diffuse bilateral crackles ABDOMEN: Soft, nontender, nondistended, normoactive bowel sounds. No palpable organomegaly. MUSCULOSKELETAL: No joint swelling or deformity. EXTREMITIES: No cyanosis, clubbing, or pedal edema. NEUROLOGICAL: Neurologically, no facial asymmetry. He is moving his eyes in all different directions. Coughing mechanism is weak. Motor functions are weak in all 4 extremities. The neurologic exam is nonfocal. He is able to follow simple commands and answer simple questions. He is aware of self and place. SKIN: No rashes. Examination of the skin revealed no evidence of significant rashes, suspicious appearing nevi or other concerning lesions. - Labs CBC & Chem 7: 08/06/21 03:55 08/06/21 03:55 Labs: Abnormal Lab Results - Last 24 Hours (Table) 08/05/21 08/05/21 08/05/21 Range/Units 11:30 16:17 19:58 WBC (3.8-10.6) k/uL Neutrophils # (1.3-7.7) k/uL Lymphocytes # (1.0-4.8) k/uL D-Dimer (<0.60) mg/L FEU Sodium (137-145) mmol/L BUN (9-20) mg/dL Creatinine (0.66-1.25) mg/dL Glucose (74-99) mg/dL POC Glucose (mg/dL) 144 H 120 H 223 H (75-99) mg/dL Calcium (8.4-10.2) mg/dL Alkaline Phosphatase (38-126) U/L Lactate Dehydrogenase (313-618) U/L C-Reactive Protein (<1.0) mg/dL Total Protein (6.3-8.2) g/dL Albumin (3.5-5.0) g/dL 08/06/21 08/06/21 08/06/21 Range/Units 03:55 03:55 04:17 WBC 24.6 H (3.8-10.6) k/uL Neutrophils # 23.3 H (1.3-7.7) k/uL Lymphocytes # 0.6 L (1.0-4.8) k/uL D-Dimer 26.25 H (<0.60) mg/L FEU Sodium 132 L (137-145) mmol/L BUN 24 H (9-20) mg/dL Creatinine 0.57 L (0.66-1.25) mg/dL Glucose 110 H (74-99) mg/dL POC Glucose (mg/dL) (75-99) mg/dL Calcium 7.8 L (8.4-10.2) mg/dL Alkaline Phosphatase 192 H (38-126) U/L Lactate Dehydrogenase 2152 H (313-618) U/L C-Reactive Protein 5.6 H (<1.0) mg/dL Total Protein 5.1 L (6.3-8.2) g/dL Albumin 2.3 L (3.5-5.0) g/dL 08/06/21 Range/Units 06:52 WBC (3.8-10.6) k/uL Neutrophils # (1.3-7.7) k/uL Lymphocytes # (1.0-4.8) k/uL D-Dimer (<0.60) mg/L FEU Sodium (137-145) mmol/L BUN (9-20) mg/dL Creatinine (0.66-1.25) mg/dL Glucose (74-99) mg/dL POC Glucose (mg/dL) 104 H (75-99) mg/dL Calcium (8.4-10.2) mg/dL Alkaline Phosphatase (38-126) U/L Lactate Dehydrogenase (313-618) U/L C-Reactive Protein (<1.0) mg/dL Total Protein (6.3-8.2) g/dL Albumin (3.5-5.0) g/dL Assessment and Plan Plan: 1 COVID-19 related pneumonia with secondary hypoxic respiratory failure. Patient was found to be symptomatic approximately a week ago and his condition has progressed significantly and currently is on high flow oxygen at 9 L, clinically stable and the patient's chest x-ray from today is showing bilateral pulmonary infiltrates, diffuse consistent with COVID-19 related pneumonia and overall oxygenation status has remained unchanged . Breathing is non labored. The patient remains on Decadron and Baricitinib. 2 acute hypoxic respiratory failure secondary to above, currently on 9 L by nasal cannula 3. Embolic CVA with secondary altered mentation with diminished level of consciousness likely secondary to CVA and and addition to a component of COVID- 19 related encephalopathy. The patient has embolic strokes bilaterally as confirmed by the CAT scan of the brain and MRI. He is currently on Eliquis. No signs of any hemorrhagic transformation. Please refer to the CAT scan of the brain done yesterday. He is currently on a combination of aspirin and Eliquis. No worsening his mental status. His last CAT scan of the brain was done yesterday. 4 mild leukocytosis with a white cell count of 24, with a low protein. pro Calcitonin level 5 elevated inflammatory markers secondary to above, needs to be followed 6 non-anion gap metabolic acidosis, and the bicarb deficit these to be replaced 7 diabetes mellitus 8 hypertension 9 hyperlipidemia 10 Chronic atrial fibrillation , currently on Lopressor for rate control 25 mg by mouth twice a day, currently on Eliquis Plan Neurologic function is stable Continue Eliquis and aspirin Continue Decadron and Baricitinib regarding his COVID-19 related pneumonia, Insulin sliding scale coverage in addition to Levemir insulin dose to be adjusted in the intensive care unit based on his blood sugar control , currently on 10 units of Levemir daily basis echocardiogram noted Doppler of LE was negative for any DVTs, Dopplers of the lower extremities were negative and the patient's d-dimer is improving Carotid Dopplers was noted and it was consistent with nonocclusive disease PICC line has been inserted Neurology follow-up Swallow is adequate Wean down the FiO2 further to maintain a saturation above 90%, currently at 9 L. May potentially transfer back to the medical floor depending on his condition. attempt weaning the FiO2 to maintain saturation above 90%. Critical care min, >30 min Time with Patient: Greater than 30
[2021-08-06 11:33] LABS: Glucose,Whole Blood 123 mg/dL (75-99)
--- NOTE | 2021-08-06 12:15 | P.PN ---
Subjective Progress Note Date: 08/06/21 The patient is seen at bedside and per nurse he is doing well. Yesterday in late afternoon, I spoke with nurse and she stated initially she thought he had left upper extremity weakness but to ICU team he was able to lift bilateral upper extremities above gravity without deficits. He had repeat CT head yesterday because he had to what appeared right upper extremity weakness and was negative for bleed. It is reported as cerebral atrophy. No acute intracranial abnormality. No change. 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 Objective - Vital Signs Vital signs: Vital Signs Temp 98.8 F 08/06/21 08:00 Pulse 71 08/06/21 11:00 Resp 26 H 08/06/21 11:00 BP 112/63 08/06/21 11:00 Pulse Ox 96 08/06/21 11:00 Intake & Output 08/05/21 08/06/21 08/06/21 18:59 06:59 18:59 Intake Total 1200 975 450 Output Total 900 665 200 Balance 300 310 250 Weight 60.1 kg Intake: IV 75 150 300 Dextrose 5% in Water 1, 0 000 ml @ 75 mls/hr IV . [id number] CARISSA with Sodium Bicarb (1 Meq/ml) 150 ml Rx#:[id number] Sodium Chloride 0.9% 1, 150 300 000 ml @ 75 mls/hr IV . [id number] CARISSA Rx#:[id number] ns 75 Intake, IV Titration 1025 825 Amount Dextrose 5% in Water 1, 225 000 ml @ 75 mls/hr IV . [id number] CARISSA with Sodium Bicarb (1 Meq/ml) 150 ml Rx#:[id number] Potassium Chloride 10 meq 200 In Water For Injection 1 100ml.bag @ 100 mls/hr IVPB Q1H CARISSA Rx#: [id number] Sodium Chloride 0.9% 1, 600 825 000 ml @ 75 mls/hr IV . [id number] CARISSA Rx#:[id number] Oral 100 150 Output: Urine 900 665 200 Other: Voiding Method Indwelling Catheter Indwelling Catheter Indwelling Catheter - Exam GENERAL: The patient is lying in bed and is not in acute distress. No carotid bruit bilaterally. NEUROLOGICAL: Higher mental function: The patient is slightly drowsy but is awakeable to vo ice, oriented to self and place. He stated the year is 2019 and the month is July. He is somewhat slow in responding or following commands. He is able to name objects correctly (fork and spoon). He is following simple commands. No neglect. Cranial nerves: The pupils are round, equal and reactive to light. VFF are full to confrontation. EOM is intact and no nystagmus. Normal facial sensation. No facial weakness noted. No dysarthria is noted. Tongue is midline and move side to side. Motor: Gait is deferred. The strength is lifting all extremities above gravity and no focality. There seems to be decrease tone over upper > lowers. Cerebellum: Had hard time assessing Sensation: Normal. Reflexes (right/left): 1+ throughout. Plantars are downgoing bilaterally. WORK-UP: * CT of the head performed on 07/24/2021 is reported as abnormal area of attenuation within the right cerebellum may reflect vascular insult however underlying lesion or necrotic. Correlate with MRI. * Carotid duplex is reported as there is antegrade flow in the vertebral arteries. Images and measurements suggest 35% stenosis in both internal carotid arteries. * MRI of the brain report is reported as diffuse scattered area of restricted diffusion, correlate for embolic phenomena. In the body they reported it is reported that the patient has diffusion weighted image demonstrated restricted effusion and inferior cerebellar hemispheres bilaterally, scattered area of restricted diffusion in the cerebellum, occipital lobes are noted bilaterally as well as bilateral parietal. Encephalomalacia was noted in the region of the thalamus over the right likely due to chronic vascular insult. Scattered area of hyperdensity present in that. Colossal, periventricular and subcortical white matter on inversion recovery T2-weighted images are currently related to chronic small vessel ischemic changes also noted. I personally reviewed that MRI the brain and I do agree patient has bilateral hemispheric stroke over the cerebellar occipital region parietal, frontal is seems embolic in nature. * CT angiography of the head and neck was reported as atheromatous plaquing present bilaterally slightly greater on the left. No flow limiting stenosis bilateral carotid bifurcation. Finding are stable from 12/04/2019 at. Normal levelock of [place]. * CT of the head was ordered as a result because of his altered mental status since reported as in keeping with a finding at recent MRI there are multiple focal area of decreased attenuation involving both cerebellar hemisphere and to a lesser extent the supratentorial region. Findings are compatible embolic ischemic insults. * CT head on 08/05/2021: yesterday because he had to what appeared right upper extremity weakness and was negative for bleed. It is reported as cerebral atrophy. No acute intracranial abnormality. No change. 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 I personally reviewed the CT of the head and I felt the patient had the subacute to chronic over bilateral cerebellar right more than left, he had chronic-appearing right thalamus, subacute to chronic bilateral subcortical frontal right more than left. There is no hemorrhage. There is no acute ischemia seen. * 2-D echo was reported as left ventricle size is normal. Moderate consider Limbitrol hypertrophy. Ejection fraction of 55-60%. Left ventricle filling pressure cannot be at estimated due to 8 atrial fibrillation. * Routine EEG is abnormal. The back or slowing suggestive of moderate to severe encephalopathy. There are no focal slowing, epileptiform discharges or seizure in the EEG. Clinical correlation is recommended. * Lipid panel is triglyceride of 104, cholesterol of 96, LDL 28 and HDL of 46. * AST of 115 and ALT of 77 * TSH is 0.112 and the free T4 is 4.06 * Hemoglobin A1c is 9.2 * Vitamin B12 is 2006 177 which is above normal but it's unremarkable. * Serum folate level is 5.70 and the normal supposed to be between 4.4-31 - Labs CBC & Chem 7: 08/06/21 03:55 08/06/21 03:55 Labs: Abnormal Lab Results - Last 24 Hours (Table) 08/05/21 08/05/21 08/06/21 Range/Units 16:17 19:58 03:55 WBC (3.8-10.6) k/uL Neutrophils # (1.3-7.7) k/uL Lymphocytes # (1.0-4.8) k/uL D-Dimer (<0.60) mg/L FEU Sodium 132 L (137-145) mmol/L BUN 24 H (9-20) mg/dL Creatinine 0.57 L (0.66-1.25) mg/dL Glucose 110 H (74-99) mg/dL POC Glucose (mg/dL) 120 H 223 H (75-99) mg/dL Calcium 7.8 L (8.4-10.2) mg/dL Alkaline Phosphatase 192 H (38-126) U/L Lactate Dehydrogenase 2152 H (313-618) U/L C-Reactive Protein 5.6 H (<1.0) mg/dL Total Protein 5.1 L (6.3-8.2) g/dL Albumin 2.3 L (3.5-5.0) g/dL 08/06/21 08/06/21 08/06/21 Range/Units 03:55 04:17 06:52 WBC 24.6 H (3.8-10.6) k/uL Neutrophils # 23.3 H (1.3-7.7) k/uL Lymphocytes # 0.6 L (1.0-4.8) k/uL D-Dimer 26.25 H (<0.60) mg/L FEU Sodium (137-145) mmol/L BUN (9-20) mg/dL Creatinine (0.66-1.25) mg/dL Glucose (74-99) mg/dL POC Glucose (mg/dL) 104 H (75-99) mg/dL Calcium (8.4-10.2) mg/dL Alkaline Phosphatase (38-126) U/L Lactate Dehydrogenase (313-618) U/L C-Reactive Protein (<1.0) mg/dL Total Protein (6.3-8.2) g/dL Albumin (3.5-5.0) g/dL 08/06/21 Range/Units 11:32 WBC (3.8-10.6) k/uL Neutrophils # (1.3-7.7) k/uL Lymphocytes # (1.0-4.8) k/uL D-Dimer (<0.60) mg/L FEU Sodium (137-145) mmol/L BUN (9-20) mg/dL Creatinine (0.66-1.25) mg/dL Glucose (74-99) mg/dL POC Glucose (mg/dL) 123 H (75-99) mg/dL Calcium (8.4-10.2) mg/dL Alkaline Phosphatase (38-126) U/L Lactate Dehydrogenase (313-618) U/L C-Reactive Protein (<1.0) mg/dL Total Protein (6.3-8.2) g/dL Albumin (3.5-5.0) g/dL Assessment and Plan Assessment: Altered mental status with generalized weakness and dysphagia due to hypoxic encephalopathy from COVID-19 pneumonia ---mentation about same and improving. Delerium due to above Acute/subacute bilateral hemisphere stroke. Seems likely cardioembolic in nature especially with new onset of atrial fibrillation COVID-19 related pneumonia with secondary hypoxic respiratory failure History of old stroke 11/2019 and TIA 01/2020 without residual weakness or focality New-onset atrial fibrillation currently Diabetes mellitus (recent HbA1c is 9.2) Transaminitis and it's trending down Hypertension Hyperlipidemia Plan: * On Eliquis 5 mg 1 tablet twice since has history of atrial fibrillation. I stopped aspirin 81mg on 08/04/2021 to avoid the risk of a bleed especially with the use of anticoagulation and his recent stroke. I think down the line within 14 days (07/17/2021) if the primary team feels there is a need for antiplatelets will defer up to them for restarting antiplatelet but for now would recommend holding off. Continue Lipitor 40 mg daily at bedtime and if patient has worsening of LFT's will go down on dose. * PT, OT and PLATE WORKER HELPER are consulted * Continue cardiac monitoring * Continue neuro checks * Cardiology is on board. Spoke with cardiology and will abort getting BARBARA. * We'll defer the rest of the medical management to the primary as well as a ICU team. * Recommend consideration of rehab and if possible inpatient. * Upon discharge, the patient needs to follow-up with his neurology team with 1- 2 weeks as outpatient ([facility]). DVT Prophylaxis: On eliquis. CONDITION: Is very guarded. The plan is discussed with patient's via phone. There is no further neurological work-up. Neurology will sign off. Please reconsult if needed. Kaiser Ochoa M.D. Neuro-hospitalist Time with Patient: Less than 30
[2021-08-06 17:37] LABS: Glucose,Whole Blood 154 mg/dL (75-99)
--- NOTE | 2021-08-06 18:55 | PN ---
PROGRESS NOTE DATE OF SERVICE: 08/06/2021 REASON FOR FOLLOWUP: COVID-19 pneumonia. INTERVAL HISTORY: The patient is afebrile. The patient is more awake and alert. He is breathing comfortably. He is currently down to 5 L nasal cannula. Not a very good historian though. No vomiting, diarrhea or any other changes reported by nursing staff. PHYSICAL EXAMINATION: Blood pressure 113/68 with a pulse of 80, temperature 98.2. He is 94% on 5 L nasal cannula. General description is an elderly male lying in bed in no distress. Respiratory system: Unlabored breathing with decreased breath sounds in the bases. No wheeze. Heart S1, S2. Regular rate and rhythm. Abdomen soft, no tenderness. LAB: Hemoglobin 14.8, white count 4.6, BUN of 24, creatinine 0.57. D-dimer 26.25. DIAGNOSTIC IMPRESSION AND PLAN: 1. Patient with acute respiratory failure secondary to Covid 19 pneumonia. Clinically not behaving as secondary bacterial pneumonia. The patient is currently on baricitinib, dexamethasone, zinc and ascorbic acid that will continue. 2. Elevated white count more likely steroid effect and we will monitor closely. MMODL / IJN: [id number] /
[2021-08-06 20:47] LABS: Glucose,Whole Blood 130 mg/dL (75-99)
[2021-08-06] MEDS: INSULIN DETEMIR (LEVEMIR) 100 UNIT/ML SYR SQ SCH (20:57)
[2021-08-06] MEDS: ATORVASTATIN 40 MG TAB PO SCH (20:57)
--- NOTE | 2021-08-06 21:26 | P.PN ---
Subjective Progress Note Date: 08/06/21 Patient is a 75 -year-old pleasant male was transferred from a outside hospital for atrial fibrillation with rapid ventricular rate. Patient is presently on therapeutic dose of Lovenox. Also has highly elevated INR. His baseline creatinine is unknown but his present creatinine is around the 0.66, patient is receiving half-normal saline at 75 mL per hour patient is also on Remdesivir, presently on 15 L of oxygen, CT of the chest did not show any pulmonary embolism but did show diffuse infiltrate patient was having symptoms for about 4 days patient was unable to provide much of history to me patient is too tired and weak. Patient is not tolerating any by mouth medications at this time because of which patient was started on IV Cardizem patient usually takes metoprolol 25 twice a day. Patient doesn't have any history of congestive heart failure. Patient was started on Decadron as well. Patient has highly elevated d-dimer. 08/01/2021 Patient is seen in follow-up continues to be closely monitored in the ICU. Patient is extremely lethargic although is arousable and intermittently respo nding appropriately to questions and commands. Patient continues to have delayed response and altered mental status and CT of the brain was ordered. Neurology has been consulted and pulmonary along with urology following closely. She continues on IV heparin along with IV Cardizem. white blood count is 14.1, hemoglobin is stable at 16.1, d-dimer is above 34.10, sodium is 141 with a potassium of 4.5 and current creatinine is 0.61. LDH is 30-55 and CRP is 6.3. TSH is 0.112 and free T4 is 4.06. patient is maintained on 15 L high flow nasal cannula along with occasional intermittent nonrebreather. Patient is afebrile. 08/02/2021 Patient is seen in follow up this morning and is being closely monitored in the ICU with multiple medical consultations following including pulmonary, infectious disease, cardiology, and neurology. CT of the brain recommending MRI and this is ordered and pending. Patient is on 13L HF nasal cannula. Mentation slowly improving and answering questions appropriately. Patient continues to be extremely weak and fatigues easily. Cardiology planning to transition cardizem to oral and possibly starting eliquis. 08/03/2021 Patient is seen and evaluated in follow-up this morning and patient continues to improve although continues to be extremely weak and fatigued. Multiple medical consultations following an neurology recommending BARBARA although was reviewed by cardiology and no plans for BARBARA at this time as MRI along with CT confirms embolic stroke with MRI showing a few scattered areas of restricted diffusion in the inferior cerebellar hemispheres bilaterally with scattered areas of restricted diffusion present in the cerebellum, occipital lobes, as well as bilateral parietal lobes. Patient continued on subcutaneous heparin with discussion of possibly starting Eliquis in the next 2 days. Patient has been started on Brilinta an neurology is following closely. Speech has evaluated the patient and recommending continuing the patient with nothing by mouth except medications as the swallow eval was not able to be completed due to extreme fatigue and lethargy. Speech will reevaluate the patient once more alert and awake. White blood count today is 17.6 with a hemoglobin of 14.6, d-dimer is elevated at 27.78, sodium is 135 with a potassium of 3.6, BUN is 33 and creatinine is 0.59. Blood sugars are being closely monitored. Repeat x-ray and labs along with inflammatory markers in the a.m. Continuing to wean as tolerated and patient is maintained on 9 L high flow and maintaining oxygen saturations of 97%. Patient with atrial fibrillation currently rate controlled with metoprolol and cardiology is following. 08/04/2021 Patient is seen in follow-up this morning continues to be in the ICU and continues to drift often fall asleep easily although mentation has improved. Patient states the year as 1990 but also states he knows that is wrong and states he is currently in the hospital for Covid but was unaware of any recent stroke. Right side ethanol operator strength 4/5 improving although patient is unable to completely lift extremity and left side ethanol operator strength continues to be weak 2/5 and completely unable to lift this extremity. Multiple medical consultations including neurology, cardiology, timber incisor operator along with infectious disease following closely. Patient being resumed on Eliquis and Brilinta has been discontinued. Chest x-ray today shows diffuse mild infiltrates greater on the left that can be compatible with atypical pneumonia. Awaiting repeat swallow eval today with the possibility of TPN for enteral nutrition as patient has been nothing by mouth. Patient continues on 11 L high flow and recommend to wean as tolerated. White blood count today is 27.3 with a hemoglobin of 15.6, d-dimer is 24.3, sodium is 131 with a potassium of 4.9, BUN is 26 and creatinine is 0.59. CRP is 4.3. Patient continues on baricitinib along with dexamethasone and vitamin and zinc supplements and will continue. 08/05/2021 Patient is evaluated today in the ICU, he is maintained on a BiPAP at the time of my assessment. Plan is to titrate oxygen as needed. Chest x-ray today reveals persistent left greater than right bilateral multifocal opacities. Labs are reviewed, White blood cell count 25.2. His d-dimer today is elevated at 29.09 which is slightly increased. LDH is 2286, CRP 5.8, pro calcitonin 0.07. Sodium today is 131. Vital signs include blood pressure 113/62. Respirations are 20s. Patient has remained afebrile. Swallow evaluation was conducted again today for follow-up for dysphagia intervention, that recommendations are for dysphagia 1. With honey thick liquid, supervision with basic needs. Patient ne eds one-to-one feeding with cues to swallow. Patient continues on baricitinib along with dexamethasone and vitamin and zinc supplements and will continue. Patient was evaluated by neurology today who feels as increasing right-sided weakness. Brain CT of the head initially reveals embolic ischemic insults. A repeat brain CT has been ordered to compare. We will hold off any BARBARA at this time per neurology and cardiology recommendations. 08/06/2021 Pt is alert and oriented x 3 at the time of my examination. He reports breathing better, able to take a deep breath. He is now on a 5L HF cannula with oxygen saturations in the mid 90s. BP today is 122/76, HR 88, afebrile. Labs are reviewed today, include a WBC of 24.6, sodium of 132, B of 24, Cr 0.57. Inflammatory markers continue to be elevated. Neurology has signed off today. Pt was able to lift left upper extremity off the bed however drifted and touched the bed after 2 seconds, his hand grasp was unequal with left weaker than right. A repeat brain CT was ordered for increasing upper extremity weakness. 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 There is no acute bleed. Patient continues on baricitinib, dexamethasone, zinc, and vitamins and will continue. Review of systems: Constitutional: reports of fatigue, no reports of fever, or chills Cardiovascular: No reports of chest pain or palpitations Respiratory: reports of shortness of breath GI: No reports of nausea, vomiting, or diarrhea : No reports of dysuria or retention Neurovascular: reports of weakness, left greater than right All medications have been reviewed PHYSICAL EXAMINATION: GENERAL: The patient is alert and oriented x2-3 extremely lethargic and fatigues easily and falls back asleep. He is quite sleepy the time of my examination. Well developed, well nourished. HEENT: Pupils are round and equally reacting to light. EOMI. No scleral icterus. No conjunctival pallor. Normocephalic, atraumatic. No pharyngeal erythema. No thyromegaly. CARDIOVASCULAR: S1 and S2 muffled. irregularly irregular rhythm PULMONARY: Diffuse bilateral coarse rhonchi noted with diminished breath sounds at the bases ABDOMEN: Soft, nontender, nondistended, normoactive bowel sounds. No palpable organomegaly. MUSCULOSKELETAL: No joint swelling or deformity. EXTREMITIES: No cyanosis, clubbing, or pedal edema. NEUROLOGICAL: Diffusely weak, left grasp weaker than right. SKIN: No rashes. Assessment and plan: -Covid 19 pneumonia: Patient will be continued on Baricitinib, IV dexamethasone, zinc, and vitamin supplements, and patient is starting eliquis. Aspirin has been discontinued from neurology standpoint. Inflammatory markers remain elevated, pro calcitonin is 0.07 which does not suggest any bacterial etiology for his pneumonia. 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 We'll continue sliding scale and long- acting and recommended Accu-Cheks before meals and at bedtime -Hyperlipidemia -Hypertension, lisinopril and amlodipine on hold -DVT prophylaxis: eliquis -full code Plan: Patient to continue on current medications and is being started on oral eliquis and continued on metoprolol and aspirin. Patient was positive for stroke on MRI with possible embolic phenomena and BARBARA was requested although cardiology is not recommending BARBARA at this time. Neurology has agreed and BARBARA will be foregone at this time. Multiple medical consultations including ID, neurology, pulmonary and cardiology following closely. Patient is now alert and oriented x 3 at the time of my assessment although he is still diffusely weak. Brain CT repeat was reviewed by neurology who is signing off at this time. Patient did receive a PICC line for possible nutritional support. Repeat swallow eval was done and patient is placed on consistent carb dysphasia 1 pured diet with honey thickened liquids and aspiration precautions with head of the bed elevated 30- 45 and one-to-one supervision with meals. Wean FI02 as tolerated. Patient is currently on 5L HF NC. BiPAP as needed. Prognosis is guarded. Repeat labs in the morning. Objective - Vital Signs Vital signs: Vital Signs Temp 98.8 F 08/06/21 08:00 Pulse 98 08/06/21 08:30 Resp 27 H 08/06/21 08:30 BP 115/51 08/06/21 08:30 Pulse Ox 85 L 08/06/21 08:30 Intake & Output 08/05/21 08/06/21 08/06/21 18:59 06:59 18:59 Intake Total 1200 975 225 Output Total 900 665 80 Balance 300 310 145 Weight 60.1 kg Intake: IV 75 150 75 Dextrose 5% in Water 1, 0 000 ml @ 75 mls/hr IV . [id number] CARISSA with Sodium Bicarb (1 Meq/ml) 150 ml Rx#:[id number] Sodium Chloride 0.9% 1, 150 75 000 ml @ 75 mls/hr IV . [id number] CARISSA Rx#:[id number] ns 75 Intake, IV Titration 1025 825 Amount Dextrose 5% in Water 1, 225 000 ml @ 75 mls/hr IV . [id number] CARISSA with Sodium Bicarb (1 Meq/ml) 150 ml Rx#:[id number] Potassium Chloride 10 meq 200 In Water For Injection 1 100ml.bag @ 100 mls/hr IVPB Q1H CARISSA Rx#: [id number] Sodium Chloride 0.9% 1, 600 825 000 ml @ 75 mls/hr IV . [id number] CARISSA Rx#:[id number] Oral 100 150 Output: Urine 900 665 80 Other: Voiding Method Indwelling Catheter Indwelling Catheter Indwelling Catheter - Labs CBC & Chem 7: 08/06/21 03:55 08/06/21 03:55 Labs: Abnormal Lab Results - Last 24 Hours (Table) 08/05/21 08/05/21 08/05/21 Range/Units 11:30 16:17 19:58 WBC (3.8-10.6) k/uL Neutrophils # (1.3-7.7) k/uL Lymphocytes # (1.0-4.8) k/uL D-Dimer (<0.60) mg/L FEU Sodium (137-145) mmol/L BUN (9-20) mg/dL Creatinine (0.66-1.25) mg/dL Glucose (74-99) mg/dL POC Glucose (mg/dL) 144 H 120 H 223 H (75-99) mg/dL Calcium (8.4-10.2) mg/dL Alkaline Phosphatase (38-126) U/L Lactate Dehydrogenase (313-618) U/L C-Reactive Protein (<1.0) mg/dL Total Protein (6.3-8.2) g/dL Albumin (3.5-5.0) g/dL 08/06/21 08/06/21 08/06/21 Range/Units 03:55 03:55 04:17 WBC 24.6 H (3.8-10.6) k/uL Neutrophils # 23.3 H (1.3-7.7) k/uL Lymphocytes # 0.6 L (1.0-4.8) k/uL D-Dimer 26.25 H (<0.60) mg/L FEU Sodium 132 L (137-145) mmol/L BUN 24 H (9-20) mg/dL Creatinine 0.57 L (0.66-1.25) mg/dL Glucose 110 H (74-99) mg/dL POC Glucose (mg/dL) (75-99) mg/dL Calcium 7.8 L (8.4-10.2) mg/dL Alkaline Phosphatase 192 H (38-126) U/L Lactate Dehydrogenase 2152 H (313-618) U/L C-Reactive Protein 5.6 H (<1.0) mg/dL Total Protein 5.1 L (6.3-8.2) g/dL Albumin 2.3 L (3.5-5.0) g/dL 08/06/21 Range/Units 06:52 WBC (3.8-10.6) k/uL Neutrophils # (1.3-7.7) k/uL Lymphocytes # (1.0-4.8) k/uL D-Dimer (<0.60) mg/L FEU Sodium (137-145) mmol/L BUN (9-20) mg/dL Creatinine (0.66-1.25) mg/dL Glucose (74-99) mg/dL POC Glucose (mg/dL) 104 H (75-99) mg/dL Calcium (8.4-10.2) mg/dL Alkaline Phosphatase (38-126) U/L Lactate Dehydrogenase (313-618) U/L C-Reactive Protein (<1.0) mg/dL Total Protein (6.3-8.2) g/dL Albumin (3.5-5.0) g/dL
[2021-08-07 03:17] LABS: Basophils % (A) 0 %; Eosinophils # (A) 0.1 k/uL (0-0.7); Eosinophils % (A) 1 %; HCT 42.7 % (39.0-53.0); HGB 14.4 gm/dL (13.0-17.5); Lymphocytes # (A) 0.8 k/uL (1.0-4.8); Lymphocytes % (A) 3 %; MCH 28.4 pg (25.0-35.0); MCHC 33.7 g/dL (31.0-37.0); MCV 84.1 fL (80.0-100.0); Monocytes # (A) 0.5 k/uL (0-1.0); Monocytes % (A) 2 %; Neutrophils # (A) 23.9 k/uL (1.3-7.7); Neutrophils % (A) 94 %; Platelet Count 229 k/uL (150-450); RBC 5.08 m/uL (4.30-5.90); WBC 25.4 k/uL (3.8-10.6)
[2021-08-07 03:28] LABS: ALT 41 U/L (4-49); AST 48 U/L (17-59); African American GFR (CKD) >90 (>60 ml/min/1.73 sqM); Albumin 2.2 g/dL (3.5-5.0); Alkaline Phosphatase 205 U/L (38-126); Anion Gap 3 mmol/L; Blood Urea Nitrogen 20 mg/dL (9-20); Calcium 7.6 mg/dL (8.4-10.2); Carbon Dioxide 23 mmol/L (22-30); Chloride 106 mmol/L (98-107); Glucose 85 mg/dL (74-99); Non-African American GFR(CKD) >90 (>60 ml/min/1.73 sqM); Potassium 3.9 mmol/L (3.5-5.1); Sodium 132 mmol/L (137-145); Total Bilirubin 1.1 mg/dL (0.2-1.3)
[2021-08-07] MEDS ORDERED: POTASSIUM CHLORIDE ER 20 MEQ TAB.ER PO SCH (04:00)
[2021-08-07] MEDS: SODIUM CHLORIDE 0.9% 1,000 ML IV SCH ×2 (05:50→16:09)
[2021-08-07 06:28] LABS: Glucose,Whole Blood 67 mg/dL (75-99)
[2021-08-07 06:28] LABS: Glucose,Whole Blood 79 mg/dL (75-99)
[2021-08-07] MEDS: INSULIN ASPART (NovoLOG) 100 UNIT/ML VIAL SQ SCH ×4 (06:30→21:38)
--- NOTE | 2021-08-07 08:04 | XR ---
EXAMINATION TYPE: XR chest 1V portable DATE OF EXAM: 08/07/2021 Comparison: 08/06/2021 Clinical History: 75-year-old male COVID Findings: Left PICC tip in the lower right atrium. Heart and lungs are normal in size. Prominent skinfold at th e right apex. Bilateral groundglass consolidation especially in the periphery of the lungs show sligh t interval worsening. Impression: 1. Bilateral groundglass consolidation especially in the periphery of the lungs has slightly worsened in the interval. 2. Note the left PICC tip in the lower right atrium.
[2021-08-07] MEDS: BARICITINIB 2 MG TABLET PO SCH (08:46)
[2021-08-07] MEDS: PANTOPRAZOLE 40 MG/10 ML VIAL IVP SCH (08:46)
[2021-08-07] MEDS: DEXAMETHASONE SOD PHOSPHATE 10 MG/ML 1 ML VIAL IV SCH (08:46)
[2021-08-07] MEDS: APIXABAN 5 MG TAB PO SCH ×2 (08:46→20:43)
[2021-08-07] MEDS: ASCORBIC ACID 500 MG TAB PO SCH (08:46)
[2021-08-07] MEDS: ZINC SULFATE 220 MG CAP PO SCH (08:46)
[2021-08-07] MEDS: CHOLECALCIFEROL 10 MCG (400 IU) TABLET PO SCH (08:46)
[2021-08-07] MEDS: METOPROLOL TARTRATE 50 MG TAB PO SCH ×3 (08:46→21:01)
[2021-08-07 12:10] LABS: ABG Base Excess -1.5 mmol/L; ABG HCO3 22 mmol/L (21-25); ABG PCO2 32 mmHg (35-45); ABG PH 7.46 (7.35-7.45); ABG PO2 86 mmHg (83-108); ABG TCO2 23 mmol/L (19-24); Allen Test Performed? Yes
[2021-08-07] MEDS ORDERED: DEXTROSE 50% SYRINGE 50 ML IVP ONE (12:37)
[2021-08-07 12:38] LABS: Glucose,Whole Blood 54 mg/dL (75-99)
--- NOTE | 2021-08-07 12:38 | P.PN ---
Subjective Progress Note Date: 08/07/21 Principal diagnosis: Acute hypoxic respiratory failure secondary to COVID-19 pneumonia 08/06/2021, seeing this patient for a follow-up. The patient remains in intensive care unit for COVID-19 related pneumonia and secondary respiratory failure. He was having more difficulties in breathing yesterday. At one point, he came as high as 15 L of oxygen by nasal cannula. Currently is down to 9 L. He is on Decadron 6 mg IV every 24 hours and he remains on Baricitinib. Chest x-ray still showing diffuse but the pulmonary infiltrates consistent with COVID- 19 related pneumonia. In terms of inflammatory markers, d-dimer still elevated at 26 and LDH level is at 2152 with a CRP level of 5.6. He is afebrile. He is hemodynamically stable. Is producing adequate amount of urine output. He remains on anticoagulation with Eliquis at a dose of 5 mg by mouth twice a day. Rest of the blood work essentially stable. His creatinine is at 0.5 with a BUN of 24. White cell count is 24. Adequate urine output. He remains on normal saline at the rate of 75 mL an hour. Cardiac rhythm is still in atrial fibrillation. Rate is controlled for now. He did have a bout of heartburn this morning and he was given Tums and he improved. He is taking applesauce and he is advancing his diet as tolerated. No agitation. No restlessness. Mental status is improved considerably. His communicating. He is alert. 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 The repeat CAT scan of the brain was done yesterday and showed cerebral atrophy without any new changes. 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 No evidence of any acute bleeding. His bicarb deficit has also been corrected. Patient was reevaluated today on 08/07/2021, patient is now in the ICU, he is marginal at best, he was on 7 L nasal cannula high flow, however he seems to be doing worse today, and I have recommended that he goes on BiPAP. Patient was placed on BiPAP at 14/6, and his repeat ABG showed a pO2 of 86 pCO2 of 32 pH of 7.46, hence and keeping the patient on BiPAP for now. She count today is 25.4 hemoglobin 14.4 electrodes are normal. Renal Profile is normal. Chest x-ray continues to show bilateral groundglass consolidation in the periphery of the lungs, slightly worse compared to his baseline. And he has a PICC line is noted . Objective - Vital Signs Vital signs: Vital Signs Temp 98.5 F 08/07/21 08:00 Pulse 115 H 08/07/21 12:00 Resp 28 H 08/07/21 12:00 BP 121/58 08/07/21 12:00 Pulse Ox 99 08/07/21 12:00 Intake & Output 08/06/21 08/07/21 08/07/21 18:59 06:59 18:59 Intake Total 1250 600 450 Output Total 726 675 650 Balance 524 -75 -200 Weight 61.5 kg Intake: IV 750 600 450 Sodium Chloride 0.9% 1, 750 600 450 000 ml @ 75 mls/hr IV . [id number] [facility] Rx#:[id number] Oral 500 Output: Urine 725 675 650 Stool 1 Other: Voiding Method Indwelling Catheter Indwelling Catheter Indwelling Catheter - Exam Revealed 75-year-old white male comfortable on BiPAP. Head atraumatic, normocephalic. HEENT: PERRLA, EOMI, anicteric, no neck masses, no JVD.. CARDIOVASCULAR: Irregular irregular rhythm, no S3 gallop. PULMONARY: Symmetrical chest expansion crackles at the bases bilaterally. ABDOMEN: Off nontender no megaly no rebound. MUSCULOSKELETAL: No deformities noted limitation in range of motion.. EXTREMITIES: No cyanosis, clubbing, or pedal edema. NEUROLOGICAL: Lethargic, arousable, follows simple instructions. Seems to be ge nerally weak SKIN: No rashes. - Labs CBC & Chem 7: 08/07/21 03:07 08/07/21 03:07 Labs: Abnormal Lab Results - Last 24 Hours (Table) 08/06/21 08/06/21 08/07/21 Range/Units 17:36 20:46 03:07 WBC 25.4 H (3.8-10.6) k/uL Neutrophils # 23.9 H (1.3-7.7) k/uL Lymphocytes # 0.8 L (1.0-4.8) k/uL ABG pH (7.35-7.45) ABG pCO2 (35-45) mmHg Sodium (137-145) mmol/L Creatinine (0.66-1.25) mg/dL POC Glucose (mg/dL) 154 H 130 H (75-99) mg/dL Calcium (8.4-10.2) mg/dL Alkaline Phosphatase (38-126) U/L Total Protein (6.3-8.2) g/dL Albumin (3.5-5.0) g/dL 08/07/21 08/07/21 08/07/21 Range/Units 03:07 06:24 12:08 WBC (3.8-10.6) k/uL Neutrophils # (1.3-7.7) k/uL Lymphocytes # (1.0-4.8) k/uL ABG pH 7.46 H (7.35-7.45) ABG pCO2 32 L (35-45) mmHg Sodium 132 L (137-145) mmol/L Creatinine 0.56 L (0.66-1.25) mg/dL POC Glucose (mg/dL) 67 L (75-99) mg/dL Calcium 7.6 L (8.4-10.2) mg/dL Alkaline Phosphatase 205 H (38-126) U/L Total Protein 5.0 L (6.3-8.2) g/dL Albumin 2.2 L (3.5-5.0) g/dL Assessment and Plan Assessment: Impression: Acute hypoxic respiratory failure secondary to COVID-19 pneumonia patient is now requiring BiPAP. Hence he would be changed from overflow to a regular ICU admission. History of embolic CVA with secondary altered mental status. In addition the patient has acute COVID-19 encephalopathy and embolic strokes noted bilaterally based on recent MRI. Remains on Eliquis. Leukocytosis with low pro calcitonin level. Elevated inflammatory markers second 2 COVID-19 pneumonia Type 2 diabetes. Chronic atrial fibrillation. Dyslipidemia. Recommendation: Continue to monitor in the ICU. Patient was placed on BiPAP, and follow-up ABG was noted. Hence we'll keep the patient on BiPAP. Continue Eliquis and aspirin. Continue Decadron and baricitinib Continue to monitor sugars closely. And adjust insulin accordingly. Neurology to continue to follow. Continue GI and DVT prophylaxis. Continue COVID-19 cocktail. Continue to monitor in the ICU. Patient is critically ill, and may require intubation mechanical ventilation. Critical care time is over 30 minutes Time with Patient: Greater than 30
[2021-08-07] MEDS ORDERED: DEXTROSE 50% SYRINGE 50 ML IVP STA (12:39)
[2021-08-07 12:53] LABS: Glucose,Whole Blood 77 mg/dL (75-99)
[2021-08-07 14:18] LABS: Glucose,Whole Blood 121 mg/dL (75-99)
--- NOTE | 2021-08-07 15:06 | P.PN ---
Subjective Progress Note Date: 08/07/21 Patient is a 75 -year-old pleasant male was transferred from a outside hospital for atrial fibrillation with rapid ventricular rate. Patient is presently on therapeutic dose of Lovenox. Also has highly elevated INR. His baseline creatinine is unknown but his present creatinine is around the 0.66, patient is receiving half-normal saline at 75 mL per hour patient is also on Remdesivir, presently on 15 L of oxygen, CT of the chest did not show any pulmonary embolism but did show diffuse infiltrate patient was having symptoms for about 4 days patient was unable to provide much of history to me patient is too tired and weak. Patient is not tolerating any by mouth medications at this time because of which patient was started on IV Cardizem patient usually takes metoprolol 25 twice a day. Patient doesn't have any history of congestive heart failure. Patient was started on Decadron as well. Patient has highly elevated d-dimer. 08/01/2021 Patient is seen in follow-up continues to be closely monitored in the ICU. Patient is extremely lethargic although is arousable and intermittently resp onding appropriately to questions and commands. Patient continues to have delayed response and altered mental status and CT of the brain was ordered. Neurology has been consulted and pulmonary along with urology following closely. She continues on IV heparin along with IV Cardizem. white blood count is 14.1, hemoglobin is stable at 16.1, d-dimer is above 34.10, sodium is 141 with a potassium of 4.5 and current creatinine is 0.61. LDH is 30-55 and CRP is 6.3. TSH is 0.112 and free T4 is 4.06. patient is maintained on 15 L high flow nasal cannula along with occasional intermittent nonrebreather. Patient is afebrile. 08/02/2021 Patient is seen in follow up this morning and is being closely monitored in the ICU with multiple medical consultations following including pulmonary, infectiou s disease, cardiology, and neurology. CT of the brain recommending MRI and this is ordered and pending. Patient is on 13L HF nasal cannula. Mentation slowly improving and answering questions appropriately. Patient continues to be extremely weak and fatigues easily. Cardiology planning to transition cardizem to oral and possibly starting eliquis. 08/03/2021 Patient is seen and evaluated in follow-up this morning and patient continues to improve although continues to be extremely weak and fatigued. Multiple medical consultations following an neurology recommending BARBARA although was reviewed by cardiology and no plans for BARBARA at this time as MRI along with CT confirms embolic stroke with MRI showing a few scattered areas of restricted diffusion in the inferior cerebellar hemispheres bilaterally with scattered areas of restricted diffusion present in the cerebellum, occipital lobes, as well as bilateral parietal lobes. Patient continued on subcutaneous heparin with discussion of possibly starting Eliquis in the next 2 days. Patient has been started on Brilinta an neurology is following closely. Speech has evaluated the patient and recommending continuing the patient with nothing by mouth except medications as the swallow eval was not able to be completed due to extreme fatigue and lethargy. Speech will reevaluate the patient once more alert and awake. White blood count today is 17.6 with a hemoglobin of 14.6, d-dimer is elevated at 27.78, sodium is 135 with a potassium of 3.6, BUN is 33 and creatinine is 0.59. Blood sugars are being closely monitored. Repeat x-ray and labs along with inflammatory markers in the a.m. Continuing to wean as tolerated and patient is maintained on 9 L high flow and maintaining oxygen saturations of 97%. Patient with atrial fibrillation currently rate controlled with metoprolol and cardiology is following. 08/04/2021 Patient is seen in follow-up this morning continues to be in the ICU and continues to drift often fall asleep easily although mentation has improved. Patient states the year as 1990 but also states he knows that is wrong and states he is currently in the hospital for Covid but was unaware of any recent stroke. Right side director of content marketing strength 4/5 improving although patient is unable to completely lift extremity and left side director of content marketing strength continues to be weak 2/5 and completely unable to lift this extremity. Multiple medical consultations including neurology, cardiology, optimization specialist along with infectious disease following closely. Patient being resumed on Eliquis and Brilinta has been discontinued. Chest x-ray today shows diffuse mild infiltrates greater on the left that can be compatible with atypical pneumonia. Awaiting repeat swallow eval today with the possibility of TPN for enteral nutrition as patient has been nothing by mouth. Patient continues on 11 L high flow and recommend to wean as tolerated. White blood count today is 27.3 with a hemoglobin of 15.6, d-dimer is 24.3, sodium is 131 with a potassium of 4.9, BUN is 26 and creatinine is 0.59. CRP is 4.3. Patient continues on baricitinib along with dexamethasone and vitamin and zinc supplements and will continue. 08/05/2021 Patient is evaluated today in the ICU, he is maintained on a BiPAP at the time of my assessment. Plan is to titrate oxygen as needed. Chest x-ray today reveals persistent left greater than right bilateral multifocal opacities. Labs are reviewed, White blood cell count 25.2. His d-dimer today is elevated at 29.09 which is slightly increased. LDH is 2286, CRP 5.8, pro calcitonin 0.07. Sodium today is 131. Vital signs include blood pressure 113/62. Respirations are 20s. Patient has remained afebrile. Swallow evaluation was conducted again today for follow-up for dysphagia intervention, that recommendations are for dysphagia 1. With honey thick liquid, supervision with basic needs. Patient n eeds one-to-one feeding with cues to swallow. Patient continues on baricitinib along with dexamethasone and vitamin and zinc supplements and will continue. Patient was evaluated by neurology today who feels as increasing right-sided weakness. Brain CT of the head initially reveals embolic ischemic insults. A repeat brain CT has been ordered to compare. We will hold off any BARBARA at this time per neurology and cardiology recommendations. 08/06/2021 Pt is alert and oriented x 3 at the time of my examination. He reports breathing better, able to take a deep breath. He is now on a 5L HF cannula with oxygen saturations in the mid 90s. BP today is 122/76, HR 88, afebrile. Labs are reviewed today, include a WBC of 24.6, sodium of 132, B of 24, Cr 0.57. Inflammatory markers continue to be elevated. Neurology has signed off today. Pt was able to lift left upper extremity off the bed however drifted and touched the bed after 2 seconds, his hand grasp was unequal with left weaker than right. A repeat brain CT was ordered for increasing upper extremity weakness. 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 There is no acute bleed. Patient continues on baricitinib, dexamethasone, zinc, and vitamins and will continue. 08/07/2021 Patient was seen and evaluated in follow-up as morning continues to be closely monitored in the ICU. Patient stating his shortness of breath mildly worsened and was on 5 L and now 7 L high flow. White blood count elevated at 25.4 and hemoglobin is stable at 14.4, sodium is 132 with a potassium of 3.9 current creatinine is 0.56. Magnesium is 2.0. Multiple medical consultations including neurology, infectious disease, and pulmonary following. Chest x-ray today shows bilateral groundglass consolidation slightly worsened in the interval. Patient is fatigued although arousable and responding appropriately. Left-sided weakness continues. Patient continues on IV dexamethasone along with vitamin and zinc supplements continued on anti-coagulant in the form of Eliquis and Baricitinib. Patient was also maintained on sliding scale along with long acting insulin although sugars have been low and actually required one amp of dextrose for a sugar less than 50 and will discontinue long-acting and continue sliding scale as needed. Review of systems: Constitutional: reports of fatigue more so today, no reports of fever, or chills Cardiovascular: No reports of chest pain or palpitations Respiratory: reports of shortness of breath and feels slightly worsened today GI: No reports of nausea, vomiting, or diarrhea : No reports of dysuria or retention Neurovascular: reports of weakness, left greater than right All medications have been reviewed Active Medications Acetaminophen (Acetaminophen Tab 325 Mg Tab) 650 mg PO Q4HR PRN PRN Reason: Fever and/ or Pain Apixaban (Apixaban 5 Mg Tab) 5 mg PO BID [facility]; Protocol Last Admin: 08/07/21 08:46 Dose: 5 mg Documented by: Ascorbic Acid (Ascorbic Acid 500 Mg Tab) 500 mg PO DAILY [facility] Last Admin: 08/07/21 08:46 Dose: 500 mg Documented by: Atorvastatin Calcium (Atorvastatin 40 Mg Tab) 40 mg PO HS [facility] Last Admin: 08/06/21 20:57 Dose: 40 mg Documented by: Baricitinib (Baricitinib 2 Mg Tablet) 4 mg PO DAILY [facility] Stop: 08/13/21 09:01 Last Admin: 08/07/21 08:46 Dose: 4 mg Documented by: Calcium Carbonate/Glycine (Calcium Carbonate 500 Mg Chewable) 500 mg PO TID PRN PRN Reason: Heartburn Last Admin: 08/06/21 08:37 Dose: 500 mg Documented by: Cholecalciferol (Cholecalciferol 10 Mcg (400 Iu) Tablet) 10 mcg PO DAILY [facility] Last Admin: 08/07/21 08:46 Dose: 10 mcg Documented by: Dexamethasone Sodium Phosphate (Dexamethasone Sod Phosphate 10 Mg/Ml 1 Ml Vial) 6 mg IV DAILY [facility] Last Admin: 08/07/21 08:46 Dose: 6 mg Documented by: Sodium Chloride (Saline 0.9%) 1,000 mls @ 75 mls/hr IV .[id number] [facility] Last Admin: 08/07/21 05:50 Dose: 75 mls/hr Documented by: Insulin Aspart (Insulin Aspart (Novolog) 100 Unit/Ml Vial) 0 unit SQ ACHS [facility]; Protocol Last Admin: 08/07/21 12:53 Dose: Not Given Documented by: Metoprolol Tartrate (Metoprolol Tartrate 50 Mg Tab) 50 mg PO TID [facility] Last Admin: 08/07/21 08:46 Dose: 50 mg Documented by: Miscellaneous Information ( Communication To Pharmacy 1 Each Misc) 1 each PO ONCE PRN PRN Reason: See Comments Miscellaneous Information (Potassium Replacement Protocol 1 Each Misc) 1 each MISCELLANE DAILY PRN; Protocol PRN Reason: Per Protocol Miscellaneous Information (Potassium Replacement Protocol 1 Each Misc) 1 each MISCELLANE DAILY PRN; Protocol PRN Reason: Per Protocol Miscellaneous Information (Magnesium Replacement Protocol 1 Each Misc) 1 each MISCELLANE DAILY PRN; Protocol PRN Reason: Per Protocol Pantoprazole Sodium (Pantoprazole 40 Mg Tablet) 40 mg PO [id number] [facility] Sodium Chloride (Sodium Chloride 0.9% Flush 10 Ml Syringe) 10 ml IV Q4HR PRN PRN Reason: PICC Line Sodium Chloride (Sodium Chloride 0.9% Flush 10 Ml Syringe) 10 ml IV WEEKLY [facility] Sodium Chloride (Sodium Chloride 0.9% Flush 10 Ml Syringe) 20 ml IV Q4HR PRN PRN Reason: PICC Line Zinc Sulfate (Zinc Sulfate 220 Mg Cap) 220 mg PO DAILY [facility] Last Admin: 08/07/21 08:46 Dose: 220 mg Documented by: PHYSICAL EXAMINATION: GENERAL: The patient is alert and oriented x2-3 extremely lethargic and fatigues easily and falls back asleep. Thin built HEENT: Pupils are round and equally reacting to light. EOMI. No scleral icterus. No conjunctival pallor. Normocephalic, atraumatic. No pharyngeal erythema. No thyromegaly. CARDIOVASCULAR: S1 and S2 muffled. irregularly irregular rhythm PULMONARY: Diffuse bilateral coarse rhonchi noted with diminished breath sounds at the bases ABDOMEN: Soft, nontender, nondistended, normoactive bowel sounds. No palpable organomegaly. MUSCULOSKELETAL: No joint swelling or deformity. EXTREMITIES: No cyanosis, clubbing, or pedal edema. NEUROLOGICAL: Left director of content marketing strength 1/5, right director of content marketing strength 4/5. Diffusely weak SKIN: No rashes. Assessment and plan: -Covid 19 pneumonia: Patient will be continued on Baricitinib, IV dexamethasone, zinc, and vitamin supplements, and patient also on eliquis and aspirin -Atrial fibrillation with rapid ventricular rate new onset, currently rate controlled with metoprolol, cardiology following -elevated d-dimer with no evidence of PE on CTA, continue eliquis -possible hyperthyroidism with a TSH of 0.112 and a free T4 4.06, repeat TSH is within normal limits and will monitor -altered mental status possibly secondary to COVID-19 encephalopathy or possibly secondary to bilateral hemispheric stroke -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 We'll continue sliding scale and long-acting and recommended Accu-Cheks before meals and at bedtime -Hyperlipidemia -Hypertension -DVT prophylaxis: eliquis -full code Plan: Patient to continue on current medications and has been started on oral eliquis and continued on metoprolol and aspirin. Patient was positive for stroke on MRI with possible embolic phenomena and BARBARA not being considered at this time with cardiology and neurology following closely. Multiple medical consultations including ID, neurology, pulmonary and cardiology following closely. Patient continues to be extremely lethargic and fatigues easily and mentation has i mproved from initial presentation and patient is able to stay awake longer to converse although fatigues easily and is not completely alert and oriented 3. Patient states he has been tolerating diet although not eating very much at all and blood sugars have been on the lower side and will continue sliding scale and Accu-Cheks before meals and at bedtime and will discontinue long-acting insulin. Patient's respiratory status deteriorating and patient was on 5 L now high flow with possible consideration of BiPAP and pulmonary optimization specialist following closely. Prognosis is extremely guarded. Objective - Vital Signs Vital signs: Vital Signs Temp 97.4 F L 08/07/21 04:00 Pulse 90 08/07/21 04:00 Resp 21 08/07/21 04:00 BP 134/69 08/07/21 04:00 Pulse Ox 93 L 08/07/21 04:00 Intake & Output 08/06/21 08/07/21 08/07/21 18:59 06:59 18:59 Intake Total 1250 600 Output Total 726 675 Balance 524 -75 Weight 61.5 kg Intake: IV 750 600 Sodium Chloride 0.9% 1, 750 600 000 ml @ 75 mls/hr IV . [id number] [facility] Rx#:[id number] Oral 500 Output: Urine 725 675 Stool 1 Other: Voiding Method Indwelling Catheter Indwelling Catheter - Labs CBC & Chem 7: 08/07/21 03:07 08/07/21 03:07 Labs: Abnormal Lab Results - Last 24 Hours (Table) 08/06/21 08/06/21 08/06/21 Range/Units 11:32 17:36 20:46 WBC (3.8-10.6) k/uL Neutrophils # (1.3-7.7) k/uL Lymphocytes # (1.0-4.8) k/uL Sodium (137-145) mmol/L Creatinine (0.66-1.25) mg/dL POC Glucose (mg/dL) 123 H 154 H 130 H (75-99) mg/dL Calcium (8.4-10.2) mg/dL Alkaline Phosphatase (38-126) U/L Total Protein (6.3-8.2) g/dL Albumin (3.5-5.0) g/dL 08/07/21 08/07/21 08/07/21 Range/Units 03:07 03:07 06:24 WBC 25.4 H (3.8-10.6) k/uL Neutrophils # 23.9 H (1.3-7.7) k/uL Lymphocytes # 0.8 L (1.0-4.8) k/uL Sodium 132 L (137-145) mmol/L Creatinine 0.56 L (0.66-1.25) mg/dL POC Glucose (mg/dL) 67 L (75-99) mg/dL Calcium 7.6 L (8.4-10.2) mg/dL Alkaline Phosphatase 205 H (38-126) U/L Total Protein 5.0 L (6.3-8.2) g/dL Albumin 2.2 L (3.5-5.0) g/dL
[2021-08-07 16:17] LABS: Glucose,Whole Blood 104 mg/dL (75-99)
[2021-08-07] MEDS: ATORVASTATIN 40 MG TAB PO SCH (20:43)
[2021-08-07 21:11] LABS: Glucose,Whole Blood 96 mg/dL (75-99)
[2021-08-08 04:46] LABS: Basophils % (A) 0 %; Eosinophils % (A) 0 %; HCT 42.6 % (39.0-53.0); HGB 13.6 gm/dL (13.0-17.5); Lymphocytes # (A) 0.7 k/uL (1.0-4.8); Lymphocytes % (A) 4 %; MCH 27.7 pg (25.0-35.0); MCHC 31.8 g/dL (31.0-37.0); MCV 87.1 fL (80.0-100.0); Mean Platelet Volume 8.7; Monocytes # (A) 0.6 k/uL (0-1.0); Monocytes % (A) 3 %; Neutrophils % (A) 93 %; Platelet Count 215 k/uL (150-450); RDW 13.8 % (11.5-15.5); WBC 19.4 k/uL (3.8-10.6)
[2021-08-08 05:16] LABS: ALT 34 U/L (4-49); AST 45 U/L (17-59); African American GFR (CKD) >90 (>60 ml/min/1.73 sqM); Albumin 2.2 g/dL (3.5-5.0); Alkaline Phosphatase 164 U/L (38-126); Anion Gap 3 mmol/L; Blood Urea Nitrogen 23 mg/dL (9-20); Calcium 7.7 mg/dL (8.4-10.2); Carbon Dioxide 24 mmol/L (22-30); Chloride 105 mmol/L (98-107); Glucose 75 mg/dL (74-99); Non-African American GFR(CKD) >90 (>60 ml/min/1.73 sqM); Potassium 4.5 mmol/L (3.5-5.1); Sodium 132 mmol/L (137-145)
[2021-08-08 05:39] LABS: C Reactive Protein 6.4 mg/dL (<1.0); Fibrinogen 278 mg/dL (200-500); Magnesium 1.9 mg/dL (1.6-2.3)
[2021-08-08] MEDS: SODIUM CHLORIDE 0.9% 1,000 ML IV SCH ×2 (05:58→18:40)
[2021-08-08] MEDS: MAGNESIUM SULFATE-D5W PMX 1 GM in DEXTROSE/WATER 1 100ML.BAG IVPB SCH ×2 (05:58→07:01)
[2021-08-08] MEDS: PANTOPRAZOLE 40 MG TABLET PO SCH (05:58)
[2021-08-08 06:08] LABS: Glucose,Whole Blood 69 mg/dL (75-99)
[2021-08-08] MEDS ORDERED: DEXTROSE 50% SYRINGE 50 ML IVP STA (06:14)
[2021-08-08] MEDS: INSULIN ASPART (NovoLOG) 100 UNIT/ML VIAL SQ SCH ×4 (06:24→23:54)
[2021-08-08 06:54] LABS: Glucose,Whole Blood 109 mg/dL (75-99)
--- NOTE | 2021-08-08 06:58 | XR ---
EXAMINATION TYPE: XR chest 1V portable DATE OF EXAM: 08/08/2021 CLINICAL HISTORY: Difficulty breathing congestion progress study. TECHNIQUE: Single AP portable semiupright view of the chest is obtained. COMPARISON: Chest x-ray from one day earlier and older studies. FINDINGS: Stable left-sided PICC line. Partial visualization of surgical change in the cervical spine. Persistent left greater than right bi lateral multifocal and confluent opacities greatest in the periphery. Some silhouetting of left hemid iaphragm redemonstrated. Cardiac silhouette size stable and within normal limits. Osseous structures are intact. IMPRESSION: Persistent left greater than right bilateral multifocal and confluent opacities greatest in the periphery consistent with known COVID-19 infection, no significant change from one day earlier .
[2021-08-08] MEDS: APIXABAN 5 MG TAB PO SCH ×2 (08:36→21:45)
[2021-08-08] MEDS: ZINC SULFATE 220 MG CAP PO SCH (08:37)
[2021-08-08] MEDS: DEXAMETHASONE SOD PHOSPHATE 10 MG/ML 1 ML VIAL IV SCH (08:37)
[2021-08-08] MEDS: BARICITINIB 2 MG TABLET PO SCH (08:37)
[2021-08-08] MEDS: METOPROLOL TARTRATE 50 MG TAB PO SCH ×3 (08:37→21:45)
[2021-08-08] MEDS: ASCORBIC ACID 500 MG TAB PO SCH (08:37)
[2021-08-08] MEDS: CHOLECALCIFEROL 10 MCG (400 IU) TABLET PO SCH (08:37)
[2021-08-08 08:51] LABS: Glucose,Whole Blood 126 mg/dL (75-99)
--- NOTE | 2021-08-08 11:34 | PN ---
PROGRESS NOTE DATE OF SERVICE: 08/07/2021 REASON FOR FOLLOWUP: COVID-19 pneumonia. INTERVAL HISTORY: The patient is afebrile. The patient did have worsening of his respiratory status this afternoon. The patient is currently on a BiPAP. The patient is hemodynamically stable, not on pressor support. No vomiting, diarrhea or any other changes reported by the nursing staff. On examination, blood pressure 124/65, pulse of 82, temperature 98.1. He is 100% on a BiPAP. General description is an elderly male lying in bed in no distress. RESPIRATORY SYSTEM: Unlabored breathing with diminished breath sounds per nursing staff. Rest of exam was deferred. LABS: Hemoglobin is 14.4, white count 5.4. BUN of 20, creatinine 0.56. DIAGNOSTIC IMPRESSION AND PLAN: 1. Patient with acute respiratory failure secondary to COVID-19 pneumonia. Clinical suspicion low for secondary bacterial pneumonia. Last procalcitonin was checked day before yesterday on 08/05, which was 0.07. The patient is currently covered with dexamethasone, Eliquis, baricitinib, zinc, ascorbic acid; to continue. 2. Elevated white count, more likely steroid effect, as no evidence of any secondary bacterial infection. Will monitor closely. MMODL / IJN: [id number] /
[2021-08-08 11:44] LABS: Glucose,Whole Blood 113 mg/dL (75-99)
--- NOTE | 2021-08-08 12:00 | XR ---
EXAMINATION TYPE: XR chest 1V portable DATE OF EXAM: 08/08/2021 CLINICAL HISTORY: NG tube placement. TECHNIQUE: Single AP portable upright view of the chest is obtained. COMPARISON: Chest x-ray from earlier today and older studies FINDINGS: New nasogastric tube projects below diaphragm. Stable left-sided PICC line. Partial visualization of surgical change in the cervical spine redemons trated. Persistent left greater than right bilateral multifocal and confluent opacities greatest in t he periphery. Some silhouetting of left hemidiaphragm redemonstrated. Cardiac silhouette size stable and within normal limits. Osseous structures are intact. IMPRESSION: New nasogastric tube satisfactory in position. Otherwise no significant [facility].
--- NOTE | 2021-08-08 13:36 | P.PN ---
Subjective Progress Note Date: 08/08/21 Principal diagnosis: Acute hypoxic respiratory failure secondary to COVID-19 pneumonia 08/06/2021, seeing this patient for a follow-up. The patient remains in intensive care unit for COVID-19 related pneumonia and secondary respiratory failure. He was having more difficulties in breathing yesterday. At one point, he came as high as 15 L of oxygen by nasal cannula. Currently is down to 9 L. He is on Decadron 6 mg IV every 24 hours and he remains on Baricitinib. Chest x-ray still showing diffuse but the pulmonary infiltrates consistent with COVID- 19 related pneumonia. In terms of inflammatory markers, d-dimer still elevated at 26 and LDH level is at 2152 with a CRP level of 5.6. He is afebrile. He is hemodynamically stable. Is producing adequate amount of urine output. He remains on anticoagulation with Eliquis at a dose of 5 mg by mouth twice a day. Rest of the blood work essentially stable. His creatinine is at 0.5 with a BUN of 24. White cell count is 24. Adequate urine output. He remains on normal saline at the rate of 75 mL an hour. Cardiac rhythm is still in atrial fibrillation. Rate is controlled for now. He did have a bout of heartburn this morning and he was given Tums and he improved. He is taking applesauce and he is advancing his diet as tolerated. No agitation. No restlessness. Mental status is improved considerably. His communicating. He is alert. 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 The repeat CAT scan of the brain was done yesterday and showed cerebral atrophy without any new changes. 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 No evidence of any acute bleeding. His bicarb deficit has also been corrected. Patient was reevaluated today on 08/07/2021, patient is now in the ICU, he is marginal at best, he was on 7 L nasal cannula high flow, however he seems to be doing worse today, and I have recommended that he goes on BiPAP. Patient was placed on BiPAP at 14/6, and his repeat ABG showed a pO2 of 86 pCO2 of 32 pH of 7.46, hence and keeping the patient on BiPAP for now. She count today is 25.4 hemoglobin 14.4 electrodes are normal. Renal Profile is normal. Chest x-ray continues to show bilateral groundglass consolidation in the periphery of the lungs, slightly worse compared to his baseline. And he has a PICC line is noted . Reevaluated today on 08/08/2021, patient remains in the ICU, on BiPAP with IPAP 14 EPAP of 7 FiO2 is 50%, cut it down to 45%, patient is on IV fluid at 75 mL per hour patient seems to be BiPAP dependent and today and planning to place a nasogastric tube and suddenly start enteral feeding on this patient. He is in A. fib rate of 88, O2 saturation is in the mid 90s. Patient seems to be quite lethargic, but arousable, follows simple instructions, seems to be generally weak and exhausted. He is definitely not in respiratory distress. Seems to be doing well on BiPAP. Respiratory see count today is 19.4, d-dimer is significantly elevated. Electrolytes are normal renal profile is normal. LDH seems to be trending down a bit down to 1881. From 3255 few days ago. Medications-hernández patient is on Eliquis at 5 mg twice a day vitamin C, Lipitor,baricitinib, atorvastatin, Tums, vitamin D, Decadron 6 mg IV daily, Toprol 50 mg 3 times a day, Protonix, and zinc. Patient will be started on ent eral feeding today. Once a nasogastric tube has been placed. Objective - Vital Signs Vital signs: Vital Signs Temp 98 F 08/08/21 12:00 Pulse 79 08/08/21 13:00 Resp 22 08/08/21 13:00 BP 138/55 08/08/21 13:00 Pulse Ox 97 08/08/21 13:00 Intake & Output 08/07/21 08/08/21 08/08/21 18:59 06:59 18:59 Intake Total 975 1000 675 Output Total 1115 640 465 Balance -140 360 210 Weight 61.5 kg 61.4 kg 61.4 kg Intake: IV 975 900 525 Sodium Chloride 0.9% 1, 975 900 525 000 ml @ 75 mls/hr IV . [id number] CARISSA Rx#:[id number] Intake, IV Titration 100 Amount Magnesium Sulfate-D5w Pmx 100 1 gm In Dextrose/Water 1 100ml.bag @ 100 mls/hr IVPB Q1H CARISSA Rx#: [id number] Tube Feeding 60 Other 90 Output: Urine 1115 640 465 Other: Voiding Method Indwelling Catheter Indwelling Catheter Indwelling Catheter - Exam Revealed 75-year-old white male comfortable on BiPAP. Seems to be generally weak, lethargic, however arousable, and follows simple instructions. Head atraumatic, normocephalic. HEENT: PERRLA, EOMI, anicteric, no neck masses, no JVD.. CARDIOVASCULAR: Irregular irregular rhythm, no S3 gallop. PULMONARY: Symmetrical chest expansion crackles at the bases bilaterally. ABDOMEN: nontender no megaly no rebound. MUSCULOSKELETAL: No deformities noted limitation in range of motion.. EXTREMITIES: No cyanosis, clubbing, or pedal edema. NEUROLOGICAL: Lethargic, arousable, follows simple instructions. SKIN: No rashes. - Labs CBC & Chem 7: 08/08/21 04:00 08/08/21 04:00 Labs: Abnormal Lab Results - Last 24 Hours (Table) 08/07/21 08/07/21 08/08/21 Range/Units 14:16 16:16 04:00 WBC 19.4 H (3.8-10.6) k/uL Neutrophils # 18.0 H (1.3-7.7) k/uL Lymphocytes # 0.7 L (1.0-4.8) k/uL D-Dimer (<0.60) mg/L FEU Sodium (137-145) mmol/L BUN (9-20) mg/dL Creatinine (0.66-1.25) mg/dL POC Glucose (mg/dL) 121 H 104 H (75-99) mg/dL Calcium (8.4-10.2) mg/dL Alkaline Phosphatase (38-126) U/L Lactate Dehydrogenase (313-618) U/L Creatine Kinase (55-170) U/L C-Reactive Protein (<1.0) mg/dL Total Protein (6.3-8.2) g/dL Albumin (3.5-5.0) g/dL 08/08/21 08/08/21 08/08/21 Range/Units 04:00 04:00 04:00 WBC (3.8-10.6) k/uL Neutrophils # (1.3-7.7) k/uL Lymphocytes # (1.0-4.8) k/uL D-Dimer >34.10 H (<0.60) mg/L FEU Sodium 132 L (137-145) mmol/L BUN 23 H (9-20) mg/dL Creatinine 0.62 L (0.66-1.25) mg/dL POC Glucose (mg/dL) (75-99) mg/dL Calcium 7.7 L (8.4-10.2) mg/dL Alkaline Phosphatase 164 H (38-126) U/L Lactate Dehydrogenase 1881 H (313-618) U/L Creatine Kinase 42 L (55-170) U/L C-Reactive Protein 6.4 H (<1.0) mg/dL Total Protein 5.0 L (6.3-8.2) g/dL Albumin 2.2 L (3.5-5.0) g/dL 08/08/21 08/08/21 08/08/21 Range/Units 06:05 06:53 08:49 WBC (3.8-10.6) k/uL Neutrophils # (1.3-7.7) k/uL Lymphocytes # (1.0-4.8) k/uL D-Dimer (<0.60) mg/L FEU Sodium (137-145) mmol/L BUN (9-20) mg/dL Creatinine (0.66-1.25) mg/dL POC Glucose (mg/dL) 69 L 109 H 126 H (75-99) mg/dL Calcium (8.4-10.2) mg/dL Alkaline Phosphatase (38-126) U/L Lactate Dehydrogenase (313-618) U/L Creatine Kinase (55-170) U/L C-Reactive Protein (<1.0) mg/dL Total Protein (6.3-8.2) g/dL Albumin (3.5-5.0) g/dL 08/08/21 Range/Units 11:42 WBC (3.8-10.6) k/uL Neutrophils # (1.3-7.7) k/uL Lymphocytes # (1.0-4.8) k/uL D-Dimer (<0.60) mg/L FEU Sodium (137-145) mmol/L BUN (9-20) mg/dL Creatinine (0.66-1.25) mg/dL POC Glucose (mg/dL) 113 H (75-99) mg/dL Calcium (8.4-10.2) mg/dL Alkaline Phosphatase (38-126) U/L Lactate Dehydrogenase (313-618) U/L Creatine Kinase (55-170) U/L C-Reactive Protein (<1.0) mg/dL Total Protein (6.3-8.2) g/dL Albumin (3.5-5.0) g/dL Assessment and Plan Assessment: Impression: Acute hypoxic respiratory failure secondary to COVID-19 pneumonia patient is now requiring BiPAP. Overall pulmonary status is marginal at best. History of embolic CVA with secondary altered mental status. Not to mention the patient has possibly acute COVID-19 encephalopathy Leukocytosis with low pro calcitonin level. Elevated inflammatory markers second 2 COVID-19 pneumonia Type 2 diabetes. Chronic atrial fibrillation. Dyslipidemia. Recommendation: Continue BiPAP. Continue to monitor in the ICU. Titrate FiO2 accordingly. Continue Eliquis and aspirin. Continue Decadron and baricitinib Continue to monitor sugars closely. And adjust insulin accordingly. Neurology to continue to follow. Continue GI and DVT prophylaxis. Continue COVID-19 cocktail. I had a long discussion with the patient's yesterday, and she was basically requesting alternative therapy on this patient, and I explained to her clearly that I would not use any therapy that is not proven or FDA approved. Even discussed the option of transferring the patient if she likes for alternative therapy if she thinks she could have it done somewhere else. I even offered to have another construction flagger take over the case if she likes who is willing to give the patient alternative non-FDA approved medical therapy. Critical care time is over 30 minutes Time with Patient: Greater than 30
--- NOTE | 2021-08-08 14:33 | P.PN ---
Subjective Progress Note Date: 08/08/21 Patient is a 75 -year-old pleasant male was transferred from a outside hospital for atrial fibrillation with rapid ventricular rate. Patient is presently on therapeutic dose of Lovenox. Also has highly elevated INR. His baseline creatinine is unknown but his present creatinine is around the 0.66, patient is receiving half-normal saline at 75 mL per hour patient is also on Remdesivir, presently on 15 L of oxygen, CT of the chest did not show any pulmonary embolism but did show diffuse infiltrate patient was having symptoms for about 4 days patient was unable to provide much of history to me patient is too tired and weak. Patient is not tolerating any by mouth medications at this time because of which patient was started on IV Cardizem patient usually takes metoprolol 25 twice a day. Patient doesn't have any history of congestive heart failure. Patient was started on Decadron as well. Patient has highly elevated d-dimer. 08/01/2021 Patient is seen in follow-up continues to be closely monitored in the ICU. Patient is extremely lethargic although is arousable and intermittently resp onding appropriately to questions and commands. Patient continues to have delayed response and altered mental status and CT of the brain was ordered. Neurology has been consulted and pulmonary along with urology following closely. She continues on IV heparin along with IV Cardizem. white blood count is 14.1, hemoglobin is stable at 16.1, d-dimer is above 34.10, sodium is 141 with a potassium of 4.5 and current creatinine is 0.61. LDH is 30-55 and CRP is 6.3. TSH is 0.112 and free T4 is 4.06. patient is maintained on 15 L high flow nasal cannula along with occasional intermittent nonrebreather. Patient is afebrile. 08/02/2021 Patient is seen in follow up this morning and is being closely monitored in the ICU with multiple medical consultations following including pulmonary, infectiou s disease, cardiology, and neurology. CT of the brain recommending MRI and this is ordered and pending. Patient is on 13L HF nasal cannula. Mentation slowly improving and answering questions appropriately. Patient continues to be extremely weak and fatigues easily. Cardiology planning to transition cardizem to oral and possibly starting eliquis. 08/03/2021 Patient is seen and evaluated in follow-up this morning and patient continues to improve although continues to be extremely weak and fatigued. Multiple medical consultations following an neurology recommending BARBARA although was reviewed by cardiology and no plans for BARBARA at this time as MRI along with CT confirms embolic stroke with MRI showing a few scattered areas of restricted diffusion in the inferior cerebellar hemispheres bilaterally with scattered areas of restricted diffusion present in the cerebellum, occipital lobes, as well as bilateral parietal lobes. Patient continued on subcutaneous heparin with discussion of possibly starting Eliquis in the next 2 days. Patient has been started on Brilinta an neurology is following closely. Speech has evaluated the patient and recommending continuing the patient with nothing by mouth except medications as the swallow eval was not able to be completed due to extreme fatigue and lethargy. Speech will reevaluate the patient once more alert and awake. White blood count today is 17.6 with a hemoglobin of 14.6, d-dimer is elevated at 27.78, sodium is 135 with a potassium of 3.6, BUN is 33 and creatinine is 0.59. Blood sugars are being closely monitored. Repeat x-ray and labs along with inflammatory markers in the a.m. Continuing to wean as tolerated and patient is maintained on 9 L high flow and maintaining oxygen saturations of 97%. Patient with atrial fibrillation currently rate controlled with metoprolol and cardiology is following. 08/04/2021 Patient is seen in follow-up this morning continues to be in the ICU and continues to drift often fall asleep easily although mentation has improved. Patient states the year as 1990 but also states he knows that is wrong and states he is currently in the hospital for Covid but was unaware of any recent stroke. Right side anode builder strength 4/5 improving although patient is unable to completely lift extremity and left side anode builder strength continues to be weak 2/5 and completely unable to lift this extremity. Multiple medical consultations including neurology, cardiology, lsw along with infectious disease following closely. Patient being resumed on Eliquis and Brilinta has been discontinued. Chest x-ray today shows diffuse mild infiltrates greater on the left that can be compatible with atypical pneumonia. Awaiting repeat swallow eval today with the possibility of TPN for enteral nutrition as patient has been nothing by mouth. Patient continues on 11 L high flow and recommend to wean as tolerated. White blood count today is 27.3 with a hemoglobin of 15.6, d-dimer is 24.3, sodium is 131 with a potassium of 4.9, BUN is 26 and creatinine is 0.59. CRP is 4.3. Patient continues on baricitinib along with dexamethasone and vitamin and zinc supplements and will continue. 08/05/2021 Patient is evaluated today in the ICU, he is maintained on a BiPAP at the time of my assessment. Plan is to titrate oxygen as needed. Chest x-ray today reveals persistent left greater than right bilateral multifocal opacities. Labs are reviewed, White blood cell count 25.2. His d-dimer today is elevated at 29.09 which is slightly increased. LDH is 2286, CRP 5.8, pro calcitonin 0.07. Sodium today is 131. Vital signs include blood pressure 113/62. Respirations are 20s. Patient has remained afebrile. Swallow evaluation was conducted again today for follow-up for dysphagia intervention, that recommendations are for dysphagia 1. With honey thick liquid, supervision with basic needs. Patient n eeds one-to-one feeding with cues to swallow. Patient continues on baricitinib along with dexamethasone and vitamin and zinc supplements and will continue. Patient was evaluated by neurology today who feels as increasing right-sided weakness. Brain CT of the head initially reveals embolic ischemic insults. A repeat brain CT has been ordered to compare. We will hold off any BARBARA at this time per neurology and cardiology recommendations. 08/06/2021 Pt is alert and oriented x 3 at the time of my examination. He reports breathing better, able to take a deep breath. He is now on a 5L HF cannula with oxygen saturations in the mid 90s. BP today is 122/76, HR 88, afebrile. Labs are reviewed today, include a WBC of 24.6, sodium of 132, B of 24, Cr 0.57. Inflammatory markers continue to be elevated. Neurology has signed off today. Pt was able to lift left upper extremity off the bed however drifted and touched the bed after 2 seconds, his hand grasp was unequal with left weaker than right. A repeat brain CT was ordered for increasing upper extremity weakness. 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 There is no acute bleed. Patient continues on baricitinib, dexamethasone, zinc, and vitamins and will continue. 08/07/2021 Patient was seen and evaluated in follow-up as morning continues to be closely monitored in the ICU. Patient stating his shortness of breath mildly worsened and was on 5 L and now 7 L high flow. White blood count elevated at 25.4 and hemoglobin is stable at 14.4, sodium is 132 with a potassium of 3.9 current creatinine is 0.56. Magnesium is 2.0. Multiple medical consultations including neurology, infectious disease, and pulmonary following. Chest x-ray today shows bilateral groundglass consolidation slightly worsened in the interval. Patient is fatigued although arousable and responding appropriately. Left-sided weakness continues. Patient continues on IV dexamethasone along with vitamin and zinc supplements continued on anti-coagulant in the form of Eliquis and Baricitinib. Patient was also maintained on sliding scale along with long acting insulin although sugars have been low and actually required one amp of dextrose for a sugar less than 50 and will discontinue long-acting and continue sliding scale as needed. 08/08/2021 Patient is seen and evaluated in follow-up currently placed on BiPAP as patient oxygen saturations continued to deteriorate and patient was more lethargic. Patient continues to be in the ICU being closely monitored. BiPAP FiO2 is 40%. Patient is continued on vitamin and zinc supplements along with baricitinib, IV dexamethasone and eliquis and will continue. Pulmonary following closely. Patient continues to be lethargic with continued poor oral intake an NG tube was placed and dietitian consulted to begin tube feeds. Recommend Accu-Cheks and use sliding scale as needed. Chest x-ray this morning shows persistent left greater than right bilateral multifocal and confluent opacification his consistent with COVID-19 and no significant change from previous. Review of systems: Constitutional: reports of fatigue more so today, no reports of fever, or chills Cardiovascular: No reports of chest pain or palpitations Respiratory: reports of shortness of breath and feels slightly better on BiPAP GI: No reports of nausea, vomiting, or diarrhea, continued poor oral intake : No reports of dysuria or retention Neurovascular: reports of weakness, left greater than right All medications have been reviewed Active Medications Acetaminophen (Acetaminophen Tab 325 Mg Tab) 650 mg PO Q4HR PRN PRN Reason: Fever and/ or Pain Apixaban (Apixaban 5 Mg Tab) 5 mg PO BID [facility]; Protocol Last Admin: 08/08/21 08:36 Dose: 5 mg Documented by: Ascorbic Acid (Ascorbic Acid 500 Mg Tab) 500 mg PO DAILY [facility] Last Admin: 08/08/21 08:37 Dose: 500 mg Documented by: Atorvastatin Calcium (Atorvastatin 40 Mg Tab) 40 mg PO HS [facility] Last Admin: 08/07/21 20:43 Dose: 40 mg Documented by: Baricitinib (Baricitinib 2 Mg Tablet) 4 mg PO DAILY [facility] Stop: 08/13/21 09:01 Last Admin: 08/08/21 08:37 Dose: 4 mg Documented by: Calcium Carbonate/Glycine (Calcium Carbonate 500 Mg Chewable) 500 mg PO TID PRN PRN Reason: Heartburn Last Admin: 08/06/21 08:37 Dose: 500 mg Documented by: Cholecalciferol (Cholecalciferol 10 Mcg (400 Iu) Tablet) 10 mcg PO DAILY [facility] Last Admin: 08/08/21 08:37 Dose: 10 mcg Documented by: Dexamethasone Sodium Phosphate (Dexamethasone Sod Phosphate 10 Mg/Ml 1 Ml Vial) 6 mg IV DAILY [facility] Last Admin: 08/08/21 08:37 Dose: 6 mg Documented by: Sodium Chloride (Saline 0.9%) 1,000 mls @ 75 mls/hr IV .[id number] [facility] Last Admin: 08/08/21 05:58 Dose: 75 mls/hr Documented by: Insulin Aspart (Insulin Aspart (Novolog) 100 Unit/Ml Vial) 0 unit SQ ACHS [facility]; Protocol Last Admin: 08/08/21 12:07 Dose: Not Given Documented by: Metoprolol Tartrate (Metoprolol Tartrate 50 Mg Tab) 50 mg PO TID [facility] Last Admin: 08/08/21 08:37 Dose: 50 mg Documented by: Miscellaneous Information (Potassium Replacement Protocol 1 Each Misc) 1 each MISCELLANE DAILY PRN; Protocol PRN Reason: Per Protocol Miscellaneous Information (Potassium Replacement Protocol 1 Each Misc) 1 each MISCELLANE DAILY PRN; Protocol PRN Reason: Per Protocol Miscellaneous Information (Magnesium Replacement Protocol 1 Each Misc) 1 each MISCELLANE DAILY PRN; Protocol PRN Reason: Per Protocol Pantoprazole Sodium (Pantoprazole 40 Mg Tablet) 40 mg PO [id number]-[id number] [facility] Last Admin: 08/08/21 05:58 Dose: 40 mg Documented by: Sodium Chloride (Sodium Chloride 0.9% Flush 10 Ml Syringe) 10 ml IV Q4HR PRN PRN Reason: PICC Line Sodium Chloride (Sodium Chloride 0.9% Flush 10 Ml Syringe) 10 ml IV WEEKLY [facility] Sodium Chloride (Sodium Chloride 0.9% Flush 10 Ml Syringe) 20 ml IV Q4HR PRN PRN Reason: PICC Line Zinc Sulfate (Zinc Sulfate 220 Mg Cap) 220 mg PO DAILY [facility] Last Admin: 08/08/21 08:37 Dose: 220 mg Documented by: PHYSICAL EXAMINATION: GENERAL: The patient is alert and oriented x2-3 extremely lethargic and fatigues easily and falls back asleep. Thin built HEENT: Pupils are round and equally reacting to light. EOMI. No scleral icterus. No conjunctival pallor. Normocephalic, atraumatic. No pharyngeal erythema. No thyromegaly. BiPAP mask noted CARDIOVASCULAR: S1 and S2 muffled. irregularly irregular rhythm PULMONARY: Diffuse bilateral coarse rhonchi noted with diminished breath sounds at the bases ABDOMEN: Soft, nontender, nondistended, normoactive bowel sounds. No palpable organomegaly. MUSCULOSKELETAL: No joint swelling or deformity. EXTREMITIES: No cyanosis, clubbing, or pedal edema. NEUROLOGICAL: Left anode builder strength 1/5, right anode builder strength 4/5. Diffusely weak SKIN: No rashes. Assessment and plan: -Covid 19 pneumonia: Patient will be continued on Baricitinib, IV dexamethasone, zinc, and vitamin supplements, and patient also on eliquis and aspirin -Acute hypoxic respiratory failure secondary to COVID-19 pneumonia, placed on BiPAP -Atrial fibrillation with rapid ventricular rate new onset, currently rate controlled with metoprolol, cardiology following -elevated d-dimer with no evidence of PE on CTA, continue eliquis -Mild protein calorie malnutrition secondary to poor oral intake due to respiratory status deterioration, NG tube placed and be started on tube feeds w [facility] dietitian consulted -possible hyperthyroidism with a TSH of 0.112 and a free T4 4.06, repeat TSH is within normal limits and will monitor -altered mental status possibly secondary to COVID-19 encephalopathy or possibly secondary to bilateral hemispheric stroke -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 Patient continues to be lethargic and will use sliding scale as needed and continue with Accu-Cheks per protocol. Prognosis is extremely guarded. Objective - Vital Signs Vital signs: Vital Signs Temp 97.5 F L 08/08/21 04:00 Pulse 78 08/08/21 07:00 Resp 23 08/08/21 07:00 BP 116/72 08/08/21 07:00 Pulse Ox 99 08/08/21 07:00 Intake & Output 08/07/21 08/08/21 08/08/21 18:59 06:59 18:59 Intake Total 975 1000 75 Output Total 1115 640 75 Balance -140 360 0 Weight 61.5 kg 61.4 kg Intake: IV 975 900 75 Sodium Chloride 0.9% 1, 975 900 75 000 ml @ 75 mls/hr IV . [id number] [facility] Rx#:[id number] Intake, IV Titration 100 Amount Magnesium Sulfate-D5w Pmx 100 1 gm In Dextrose/Water 1 100ml.bag @ 100 mls/hr IVPB Q1H CARISSA Rx#: [id number] Output: Urine 1115 640 75 Other: Voiding Method Indwelling Catheter Indwelling Catheter - Labs CBC & Chem 7: 08/08/21 04:00 08/08/21 04:00 Labs: Abnormal Lab Results - Last 24 Hours (Table) 08/07/21 08/07/21 08/07/21 Range/Units 12:08 12:36 14:16 WBC (3.8-10.6) k/uL Neutrophils # (1.3-7.7) k/uL Lymphocytes # (1.0-4.8) k/uL D-Dimer (<0.60) mg/L FEU ABG pH 7.46 H (7.35-7.45) ABG pCO2 32 L (35-45) mmHg Sodium (137-145) mmol/L BUN (9-20) mg/dL Creatinine (0.66-1.25) mg/dL POC Glucose (mg/dL) 54 L 121 H (75-99) mg/dL Calcium (8.4-10.2) mg/dL Alkaline Phosphatase (38-126) U/L Lactate Dehydrogenase (313-618) U/L Creatine Kinase (55-170) U/L C-Reactive Protein (<1.0) mg/dL Total Protein (6.3-8.2) g/dL Albumin (3.5-5.0) g/dL 08/07/21 08/08/21 08/08/21 Range/Units 16:16 04:00 04:00 WBC 19.4 H (3.8-10.6) k/uL Neutrophils # 18.0 H (1.3-7.7) k/uL Lymphocytes # 0.7 L (1.0-4.8) k/uL D-Dimer (<0.60) mg/L FEU ABG pH (7.35-7.45) ABG pCO2 (35-45) mmHg Sodium 132 L (137-145) mmol/L BUN 23 H (9-20) mg/dL Creatinine 0.62 L (0.66-1.25) mg/dL POC Glucose (mg/dL) 104 H (75-99) mg/dL Calcium 7.7 L (8.4-10.2) mg/dL Alkaline Phosphatase 164 H (38-126) U/L Lactate Dehydrogenase (313-618) U/L Creatine Kinase (55-170) U/L C-Reactive Protein (<1.0) mg/dL Total Protein 5.0 L (6.3-8.2) g/dL Albumin 2.2 L (3.5-5.0) g/dL 08/08/21 08/08/21 08/08/21 Range/Units 04:00 04:00 06:05 WBC (3.8-10.6) k/uL Neutrophils # (1.3-7.7) k/uL Lymphocytes # (1.0-4.8) k/uL D-Dimer >34.10 H (<0.60) mg/L FEU ABG pH (7.35-7.45) ABG pCO2 (35-45) mmHg Sodium (137-145) mmol/L BUN (9-20) mg/dL Creatinine (0.66-1.25) mg/dL POC Glucose (mg/dL) 69 L (75-99) mg/dL Calcium (8.4-10.2) mg/dL Alkaline Phosphatase (38-126) U/L Lactate Dehydrogenase 1881 H (313-618) U/L Creatine Kinase 42 L (55-170) U/L C-Reactive Protein 6.4 H (<1.0) mg/dL Total Protein (6.3-8.2) g/dL Albumin (3.5-5.0) g/dL 08/08/21 Range/Units 06:53 WBC (3.8-10.6) k/uL Neutrophils # (1.3-7.7) k/uL Lymphocytes # (1.0-4.8) k/uL D-Dimer (<0.60) mg/L FEU ABG pH (7.35-7.45) ABG pCO2 (35-45) mmHg Sodium (137-145) mmol/L BUN (9-20) mg/dL Creatinine (0.66-1.25) mg/dL POC Glucose (mg/dL) 109 H (75-99) mg/dL Calcium (8.4-10.2) mg/dL Alkaline Phosphatase (38-126) U/L Lactate Dehydrogenase (313-618) U/L Creatine Kinase (55-170) U/L C-Reactive Protein (<1.0) mg/dL Total Protein (6.3-8.2) g/dL Albumin (3.5-5.0) g/dL
[2021-08-08 17:47] LABS: Glucose,Whole Blood 186 mg/dL (75-99)
[2021-08-08] MEDS: ATORVASTATIN 40 MG TAB PO SCH (21:45)
[2021-08-08 23:09] LABS: Glucose,Whole Blood 235 mg/dL (75-99)
[2021-08-09 03:47] LABS: Basophils % (A) 0 %; Eosinophils # (A) 0.1 k/uL (0-0.7); Eosinophils % (A) 0 %; HCT 37.5 % (39.0-53.0); HGB 12.3 gm/dL (13.0-17.5); Lymphocytes # (A) 0.6 k/uL (1.0-4.8); Lymphocytes % (A) 4 %; MCH 28.2 pg (25.0-35.0); MCHC 32.8 g/dL (31.0-37.0); MCV 86.1 fL (80.0-100.0); Mean Platelet Volume 8.9; Monocytes # (A) 0.6 k/uL (0-1.0); Monocytes % (A) 4 %; Neutrophils # (A) 15.3 k/uL (1.3-7.7); Neutrophils % (A) 92 %; Platelet Count 181 k/uL (150-450); RBC 4.36 m/uL (4.30-5.90); WBC 16.6 k/uL (3.8-10.6)
[2021-08-09 04:14] LABS: ALT 34 U/L (4-49); AST 37 U/L (17-59); African American GFR (CKD) >90 (>60 ml/min/1.73 sqM); Albumin 1.8 g/dL (3.5-5.0); Alkaline Phosphatase 141 U/L (38-126); Anion Gap 1 mmol/L; Blood Urea Nitrogen 29 mg/dL (9-20); Calcium 6.6 mg/dL (8.4-10.2); Carbon Dioxide 22 mmol/L (22-30); Chloride 108 mmol/L (98-107); Glucose 193 mg/dL (74-99); Magnesium 1.9 mg/dL (1.6-2.3); Non-African American GFR(CKD) >90 (>60 ml/min/1.73 sqM); Potassium 3.8 mmol/L (3.5-5.1); Sodium 131 mmol/L (137-145); Total Bilirubin 0.8 mg/dL (0.2-1.3); Total Protein 4.2 g/dL (6.3-8.2)
[2021-08-09] MEDS ORDERED: POTASSIUM BICARB-CITRIC ACID 25 MEQ TABLET.EFF PO ONE (04:25)
--- NOTE | 2021-08-09 05:29 | PN ---
PROGRESS NOTE DATE OF SERVICE: 08/08/2021 REASON FOR FOLLOWUP: COVID-19 pneumonia. INTERVAL HISTORY: Patient remains to be afebrile. The patient is hemodynamically stable. The patient remains to be BiPAP dependent. The FiO2 is currently at 40%. No significant cough, sputum production, diarrhea or any other changes reported by the nursing staff. PHYSICAL EXAMINATION: Blood pressure 115/58 with a pulse of 92, temperature 97.6. He is 98% on 40% FiO2. General description is an elderly male lying in bed in no distress. Respiratory system: Unlabored breathing, decreased intensity of the breath sounds. Heart S1, S2. Regular rate and rhythm. Abdomen soft, no tenderness. LABS: Hemoglobin is 13.1, white count of 19.4, BUN of 23, creatinine 0.62. DIAGNOSTIC IMPRESSION AND PLAN: Patient with acute respiratory failure, acute COVID-19 pneumonia. This patient did have slight clinical condition yesterday. X-rays with no significant change. White count is trending down. Patient is covered with Decadron, baricitinib, Eliquis, continue. We will repeat inflammatory markers and monitor clinical course closely. MMODL / IJN: [id number] /
[2021-08-09] MEDS: INSULIN ASPART (NovoLOG) 100 UNIT/ML VIAL SQ SCH ×4 (06:59→23:54)
[2021-08-09] MEDS: PANTOPRAZOLE 40 MG TABLET PO SCH (07:00)
--- NOTE | 2021-08-09 08:44 | XR ---
EXAMINATION TYPE: XR chest 1V portable DATE OF EXAM: 08/09/2021 COMPARISON: 08/08/2021 INDICATION: Covid TECHNIQUE: Single frontal view of the chest is obtained. FINDINGS: The heart size is normal. The pulmonary vasculature is normal. There may be a small left pleural effusion. There is diffuse increased lung markings to the left lung . Mild residual infiltrate improving at the right base. Nasogastric tube transverses the thorax tip i n the left upper quadrant of the abdomen IMPRESSION: 1. Bilateral lung infiltrates greater on the left. This is improving on the right.
[2021-08-09] MEDS ORDERED: FUROSEMIDE 10 MG/ML 4 ML VIAL IV STA (09:07)
[2021-08-09] MEDS: DEXAMETHASONE SOD PHOSPHATE 10 MG/ML 1 ML VIAL IV SCH (09:42)
[2021-08-09] MEDS: METOPROLOL TARTRATE 50 MG TAB PO SCH ×2 (09:42→21:14)
[2021-08-09] MEDS: ZINC SULFATE 220 MG CAP PO SCH (09:42)
[2021-08-09] MEDS: APIXABAN 5 MG TAB PO SCH ×2 (09:43→21:13)
[2021-08-09] MEDS: BARICITINIB 2 MG TABLET PO SCH (09:43)
[2021-08-09] MEDS: CHOLECALCIFEROL 10 MCG (400 IU) TABLET PO SCH (09:43)
[2021-08-09] MEDS: PANTOPRAZOLE 40 MG/10 ML VIAL IVP SCH ×2 (09:43→21:14)
[2021-08-09] MEDS: ASCORBIC ACID 500 MG TAB PO SCH (09:43)
[2021-08-09] MEDS ORDERED: DILTIAZEM DRIP BOLUS FROM BAG 1 MG SOLN IV ONE (10:04)
[2021-08-09] MEDS ORDERED: DILTIAZEM 125 MG in SODIUM CHLORIDE 0.9% 100 ML IV SCH (10:15)
[2021-08-09] MEDS: SODIUM CHLORIDE 0.9% 1,000 ML IV SCH ×2 (11:20→21:15)
--- NOTE | 2021-08-09 11:44 | P.PN ---
Subjective Progress Note Date: 08/09/21 Principal diagnosis: Acute hypoxic respiratory failure secondary to COVID-19 pneumonia 08/06/2021, seeing this patient for a follow-up. The patient remains in intensive care unit for COVID-19 related pneumonia and secondary respiratory failure. He was having more difficulties in breathing yesterday. At one point, he came as high as 15 L of oxygen by nasal cannula. Currently is down to 9 L. He is on Decadron 6 mg IV every 24 hours and he remains on Baricitinib. Chest x-ray still showing diffuse but the pulmonary infiltrates consistent with COVID- 19 related pneumonia. In terms of inflammatory markers, d-dimer still elevated at 26 and LDH level is at 2152 with a CRP level of 5.6. He is afebrile. He is hemodynamically stable. Is producing adequate amount of urine output. He remains on anticoagulation with Eliquis at a dose of 5 mg by mouth twice a day. Rest of the blood work essentially stable. His creatinine is at 0.5 with a BUN of 24. White cell count is 24. Adequate urine output. He remains on normal saline at the rate of 75 mL an hour. Cardiac rhythm is still in atrial fibrillation. Rate is controlled for now. He did have a bout of heartburn this morning and he was given Tums and he improved. He is taking applesauce and he is advancing his diet as tolerated. No agitation. No restlessness. Mental status is improved considerably. His communicating. He is alert. 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 The repeat CAT scan of the brain was done yesterday and showed cerebral atrophy without any new changes. 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 No evidence of any acute bleeding. His bicarb deficit has also been corrected. Patient was reevaluated today on 08/07/2021, patient is now in the ICU, he is marginal at best, he was on 7 L nasal cannula high flow, however he seems to be doing worse today, and I have recommended that he goes on BiPAP. Patient was placed on BiPAP at 14/6, and his repeat ABG showed a pO2 of 86 pCO2 of 32 pH of 7.46, hence and keeping the patient on BiPAP for now. She count today is 25.4 hemoglobin 14.4 electrodes are normal. Renal Profile is normal. Chest x-ray continues to show bilateral groundglass consolidation in the periphery of the lungs, slightly worse compared to his baseline. And he has a PICC line is noted . Reevaluated today on 08/08/2021, patient remains in the ICU, on BiPAP with IPAP 14 EPAP of 7 FiO2 is 50%, cut it down to 45%, patient is on IV fluid at 75 mL per hour patient seems to be BiPAP dependent and today and planning to place a nasogastric tube and suddenly start enteral feeding on this patient. He is in A. fib rate of 88, O2 saturation is in the mid 90s. Patient seems to be quite lethargic, but arousable, follows simple instructions, seems to be generally weak and exhausted. He is definitely not in respiratory distress. Seems to be doing well on BiPAP. Respiratory see count today is 19.4, d-dimer is significantly elevated. Electrolytes are normal renal profile is normal. LDH seems to be trending down a bit down to 1881. From 3255 few days ago. Medications-hernández patient is on Eliquis at 5 mg twice a day vitamin C, Lipitor,baricitinib, atorvastatin, Tums, vitamin D, Decadron 6 mg IV daily, Toprol 50 mg 3 times a day, Protonix, and zinc. Patient will be started on ent eral feeding today. Once a nasogastric tube has been placed. Reevaluated today on 08/09/2021, patient remains in the ICU, remains on BiPAP with IPAP of 14 EPAP of 7 however his FiO2 is down to 30%. Patient is in atrial fibrillation with RVR, hence I will bolus the patient with Cardizem and placed on a Cardizem drip at 5 mg per hour. Patient remained generally weak, he is arousable, seems to be quite lethargic, but arousable and follows simple instructions. Noted that the patient had significant weight gain since admission, hence the dose of Lasix was ordered 40 mg IV push 1, patient remains on IV fluid at 75 mL/h, he is now receiving enteral feeding via nasogastric tube which was placed yesterday. Not yet up to goal. D-dimer remains elevated at 24, however the patient is on Eliquis. Patient is hemodynamically stable, Chest x-ray continues to show by lateral infiltrates, however the left side seems to be more affected than right side. She count today 16.6 hemoglobin is 12.3 d-dimer is 24.4 electrodes are normal renal profile is normal. Objective - Vital Signs Vital signs: Vital Signs Temp 98.2 F 08/09/21 09:00 Pulse 85 08/09/21 11:00 Resp 27 H 08/09/21 11:00 BP 134/79 08/09/21 11:00 Pulse Ox 99 08/09/21 11:00 Intake & Output 08/08/21 08/09/21 08/09/21 18:59 06:59 18:59 Intake Total 1180 1360 565 Output Total 891 515 725 Balance 289 845 -160 Weight 61.4 kg Intake: IV 900 900 375 Sodium Chloride 0.9% 1, 900 900 375 000 ml @ 75 mls/hr IV . [id number] [facility] Rx#:[id number] Tube Feeding 160 370 190 Other 120 90 Output: Urine 890 515 725 Stool 1 Other: Voiding Method Indwelling Catheter Indwelling Catheter # Bowel Movements 1 - Exam Revealed 75-year-old white male comfortable on BiPAP. Remains lethargic, however arousable, and follows simple instructions. Head atraumatic, normocephalic. HEENT: PERRLA, EOMI, anicteric, no neck masses, no JVD.. CARDIOVASCULAR: Irregular irregular rhythm, no S3 gallop. PULMONARY: Symmetrical chest expansion crackles at the bases bilaterally. ABDOMEN: nontender no megaly no rebound. MUSCULOSKELETAL: No deformities noted limitation in range of motion.. EXTREMITIES: No cyanosis, clubbing, or pedal edema. NEUROLOGICAL: Lethargic, arousable, follows simple instructions. SKIN: No rashes. - Labs CBC & Chem 7: 08/09/21 03:35 08/09/21 03:35 Labs: Abnormal Lab Results - Last 24 Hours (Table) 08/08/21 08/08/21 08/08/21 Range/Units 04:00 11:42 17:45 WBC (3.8-10.6) k/uL Hgb (13.0-17.5) gm/dL Hct (39.0-53.0) % Neutrophils # (1.3-7.7) k/uL Lymphocytes # (1.0-4.8) k/uL D-Dimer (<0.60) mg/L FEU Sodium (137-145) mmol/L Chloride (98-107) mmol/L BUN (9-20) mg/dL Creatinine (0.66-1.25) mg/dL Glucose (74-99) mg/dL POC Glucose (mg/dL) 113 H 186 H (75-99) mg/dL Calcium (8.4-10.2) mg/dL Ferritin 955.0 H (22.0-322.0) ng/mL Alkaline Phosphatase (38-126) U/L Total Protein (6.3-8.2) g/dL Albumin (3.5-5.0) g/dL 08/08/21 08/09/21 08/09/21 Range/Units 23:08 03:35 03:35 WBC 16.6 H (3.8-10.6) k/uL Hgb 12.3 L (13.0-17.5) gm/dL Hct 37.5 L (39.0-53.0) % Neutrophils # 15.3 H (1.3-7.7) k/uL Lymphocytes # 0.6 L (1.0-4.8) k/uL D-Dimer (<0.60) mg/L FEU Sodium 131 L (137-145) mmol/L Chloride 108 H (98-107) mmol/L BUN 29 H (9-20) mg/dL Creatinine 0.51 L (0.66-1.25) mg/dL Glucose 193 H (74-99) mg/dL POC Glucose (mg/dL) 235 H (75-99) mg/dL Calcium 6.6 L (8.4-10.2) mg/dL Ferritin (22.0-322.0) ng/mL Alkaline Phosphatase 141 H (38-126) U/L Total Protein 4.2 L (6.3-8.2) g/dL Albumin 1.8 L (3.5-5.0) g/dL 08/09/21 Range/Units 03:35 WBC (3.8-10.6) k/uL Hgb (13.0-17.5) gm/dL Hct (39.0-53.0) % Neutrophils # (1.3-7.7) k/uL Lymphocytes # (1.0-4.8) k/uL D-Dimer 24.44 H (<0.60) mg/L FEU Sodium (137-145) mmol/L Chloride (98-107) mmol/L BUN (9-20) mg/dL Creatinine (0.66-1.25) mg/dL Glucose (74-99) mg/dL POC Glucose (mg/dL) (75-99) mg/dL Calcium (8.4-10.2) mg/dL Ferritin (22.0-322.0) ng/mL Alkaline Phosphatase (38-126) U/L Total Protein (6.3-8.2) g/dL Albumin (3.5-5.0) g/dL Assessment and Plan Assessment: Impression: Acute hypoxic respiratory failure secondary to COVID-19 pneumonia still on BiPAP. 17/05, FiO2 is 30% History of embolic CVA with secondary altered mental status. Not to mention the patient has possibly acute COVID-19 encephalopathy Leukocytosis with low pro calcitonin level. Elevated inflammatory markers second 2 COVID-19 pneumonia Type 2 diabetes. Chronic atrial fibrillation. Presently in atrial fibrillation with RVR, and I started the patient on Cardizem drip. Dyslipidemia. Recommendation: Cardizem drip for atrial fibrillation with RVR. Continue BiPAP. Continue to monitor in the ICU. Titrate FiO2 accordingly. Continue Eliquis and aspirin. Continue Decadron and baricitinib Neurology to continue to follow. Considering his severe encephalopathy. Continue GI and DVT prophylaxis. Continue COVID-19 cocktail. Critical care time is over 30 minutes Time with Patient: Greater than 30
[2021-08-09 13:21] LABS: Glucose,Whole Blood 201 mg/dL (75-99)
[2021-08-09 18:13] LABS: Glucose,Whole Blood 180 mg/dL (75-99)
[2021-08-09] MEDS: ATORVASTATIN 40 MG TAB PO SCH (21:13)
--- NOTE | 2021-08-09 23:20 | PN ---
PROGRESS NOTE DATE OF SERVICE: 08/09/2021 REASON FOR FOLLOWUP: COVID-19 pneumonia. INTERVAL HISTORY: Patient is afebrile. The patient remains to be BiPAP dependent, hemodynamically stable. Not on any pressor support. No vomiting, diarrhea or any other changes reported by nursing staff. PHYSICAL EXAMINATION: Blood pressure 110/52 with a pulse of 62. Temperature 96.5. He is 97% on BiPAP. General description is an elderly male lying in bed in no distress. Respiratory system: Unlabored breathing. Diminished breath sounds. Heart S1, S2. Regular rate and rhythm. Abdomen soft, no tenderness. LABS: Hemoglobin is 12.1, white count 16.6, BUN of 29, creatinine 0.51. DIAGNOSTIC IMPRESSION/PLAN: Patient with acute respiratory failure secondary to Covid 19 pneumonia. X-ray did show slight improvement. The patient did have a complicated factor of atrial fibrillation with RVR. The patient is currently on baricitinib and Eliquis, dexamethasone, zinc and ascorbic acid, to continue along with respiratory support and monitor clinical course closely. MMODL / IJN: [id number] /
[2021-08-09 23:54] LABS: Glucose,Whole Blood 191 mg/dL (75-99)
--- NOTE | 2021-08-10 03:28 | P.PN ---
Subjective Progress Note Date: 08/09/21 Patient is a 75 -year-old pleasant male was transferred from a outside hospital for atrial fibrillation with rapid ventricular rate. Patient is presently on therapeutic dose of Lovenox. Also has highly elevated INR. His baseline creatinine is unknown but his present creatinine is around the 0.66, patient is receiving half-normal saline at 75 mL per hour patient is also on Remdesivir, presently on 15 L of oxygen, CT of the chest did not show any pulmonary embolism but did show diffuse infiltrate patient was having symptoms for about 4 days patient was unable to provide much of history to me patient is too tired and weak. Patient is not tolerating any by mouth medications at this time because of which patient was started on IV Cardizem patient usually takes metoprolol 25 twice a day. Patient doesn't have any history of congestive heart failure. Patient was started on Decadron as well. Patient has highly elevated d-dimer. 08/01/2021 Patient is seen in follow-up continues to be closely monitored in the ICU. Patient is extremely lethargic although is arousable and intermittently resp onding appropriately to questions and commands. Patient continues to have delayed response and altered mental status and CT of the brain was ordered. Neurology has been consulted and pulmonary along with urology following closely. She continues on IV heparin along with IV Cardizem. white blood count is 14.1, hemoglobin is stable at 16.1, d-dimer is above 34.10, sodium is 141 with a potassium of 4.5 and current creatinine is 0.61. LDH is 30-55 and CRP is 6.3. TSH is 0.112 and free T4 is 4.06. patient is maintained on 15 L high flow nasal cannula along with occasional intermittent nonrebreather. Patient is afebrile. 08/02/2021 Patient is seen in follow up this morning and is being closely monitored in the ICU with multiple medical consultations following including pulmonary, infectiou s disease, cardiology, and neurology. CT of the brain recommending MRI and this is ordered and pending. Patient is on 13L HF nasal cannula. Mentation slowly improving and answering questions appropriately. Patient continues to be extremely weak and fatigues easily. Cardiology planning to transition cardizem to oral and possibly starting eliquis. 08/03/2021 Patient is seen and evaluated in follow-up this morning and patient continues to improve although continues to be extremely weak and fatigued. Multiple medical consultations following an neurology recommending BARBARA although was reviewed by cardiology and no plans for BARBARA at this time as MRI along with CT confirms embolic stroke with MRI showing a few scattered areas of restricted diffusion in the inferior cerebellar hemispheres bilaterally with scattered areas of restricted diffusion present in the cerebellum, occipital lobes, as well as bilateral parietal lobes. Patient continued on subcutaneous heparin with discussion of possibly starting Eliquis in the next 2 days. Patient has been started on Brilinta an neurology is following closely. Speech has evaluated the patient and recommending continuing the patient with nothing by mouth except medications as the swallow eval was not able to be completed due to extreme fatigue and lethargy. Speech will reevaluate the patient once more alert and awake. White blood count today is 17.6 with a hemoglobin of 14.6, d-dimer is elevated at 27.78, sodium is 135 with a potassium of 3.6, BUN is 33 and creatinine is 0.59. Blood sugars are being closely monitored. Repeat x-ray and labs along with inflammatory markers in the a.m. Continuing to wean as tolerated and patient is maintained on 9 L high flow and maintaining oxygen saturations of 97%. Patient with atrial fibrillation currently rate controlled with metoprolol and cardiology is following. 08/04/2021 Patient is seen in follow-up this morning continues to be in the ICU and continues to drift often fall asleep easily although mentation has improved. Patient states the year as 1990 but also states he knows that is wrong and states he is currently in the hospital for Covid but was unaware of any recent stroke. Right side stoner hand strength 4/5 improving although patient is unable to completely lift extremity and left side stoner hand strength continues to be weak 2/5 and completely unable to lift this extremity. Multiple medical consultations including neurology, cardiology, wound care center consultant along with infectious disease following closely. Patient being resumed on Eliquis and Brilinta has been discontinued. Chest x-ray today shows diffuse mild infiltrates greater on the left that can be compatible with atypical pneumonia. Awaiting repeat swallow eval today with the possibility of TPN for enteral nutrition as patient has been nothing by mouth. Patient continues on 11 L high flow and recommend to wean as tolerated. White blood count today is 27.3 with a hemoglobin of 15.6, d-dimer is 24.3, sodium is 131 with a potassium of 4.9, BUN is 26 and creatinine is 0.59. CRP is 4.3. Patient continues on baricitinib along with dexamethasone and vitamin and zinc supplements and will continue. 08/05/2021 Patient is evaluated today in the ICU, he is maintained on a BiPAP at the time of my assessment. Plan is to titrate oxygen as needed. Chest x-ray today reveals persistent left greater than right bilateral multifocal opacities. Labs are reviewed, White blood cell count 25.2. His d-dimer today is elevated at 29.09 which is slightly increased. LDH is 2286, CRP 5.8, pro calcitonin 0.07. Sodium today is 131. Vital signs include blood pressure 113/62. Respirations are 20s. Patient has remained afebrile. Swallow evaluation was conducted again today for follow-up for dysphagia intervention, that recommendations are for dysphagia 1. With honey thick liquid, supervision with basic needs. Patient n eeds one-to-one feeding with cues to swallow. Patient continues on baricitinib along with dexamethasone and vitamin and zinc supplements and will continue. Patient was evaluated by neurology today who feels as increasing right-sided weakness. Brain CT of the head initially reveals embolic ischemic insults. A repeat brain CT has been ordered to compare. We will hold off any BARBARA at this time per neurology and cardiology recommendations. 08/06/2021 Pt is alert and oriented x 3 at the time of my examination. He reports breathing better, able to take a deep breath. He is now on a 5L HF cannula with oxygen saturations in the mid 90s. BP today is 122/76, HR 88, afebrile. Labs are reviewed today, include a WBC of 24.6, sodium of 132, B of 24, Cr 0.57. Inflammatory markers continue to be elevated. Neurology has signed off today. Pt was able to lift left upper extremity off the bed however drifted and touched the bed after 2 seconds, his hand grasp was unequal with left weaker than right. A repeat brain CT was ordered for increasing upper extremity weakness. 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 There is no acute bleed. Patient continues on baricitinib, dexamethasone, zinc, and vitamins and will continue. 08/07/2021 Patient was seen and evaluated in follow-up as morning continues to be closely monitored in the ICU. Patient stating his shortness of breath mildly worsened and was on 5 L and now 7 L high flow. White blood count elevated at 25.4 and hemoglobin is stable at 14.4, sodium is 132 with a potassium of 3.9 current creatinine is 0.56. Magnesium is 2.0. Multiple medical consultations including neurology, infectious disease, and pulmonary following. Chest x-ray today shows bilateral groundglass consolidation slightly worsened in the interval. Patient is fatigued although arousable and responding appropriately. Left-sided weakness continues. Patient continues on IV dexamethasone along with vitamin and zinc supplements continued on anti-coagulant in the form of Eliquis and Baricitinib. Patient was also maintained on sliding scale along with long acting insulin although sugars have been low and actually required one amp of dextrose for a sugar less than 50 and will discontinue long-acting and continue sliding scale as needed. 08/08/2021 Patient is seen and evaluated in follow-up currently placed on BiPAP as patient oxygen saturations continued to deteriorate and patient was more lethargic. Patient continues to be in the ICU being closely monitored. BiPAP FiO2 is 40%. Patient is continued on vitamin and zinc supplements along with baricitinib, IV dexamethasone and eliquis and will continue. Pulmonary following closely. Patient continues to be lethargic with continued poor oral intake an NG tube was placed and dietitian consulted to begin tube feeds. Recommend Accu-Cheks and use sliding scale as needed. Chest x-ray this morning shows persistent left greater than right bilateral multifocal and confluent opacification his consistent with COVID-19 and no significant change from previous. 08/09/2021 Patient is seen and evaluated this morning and having a brief episode of atrial fibrillation with RVR with a heart rate of 130's -150's and cardizem was ordered although IV lasix dose was given and oral metoprolol most recently and appears to have converted back in sinus rhythm. Patient was extremely restless and attempting to take bipap mask off. Patient was extremely anxious and expressing concern of having to have a bowel movement. Multiple medical consultations following. Medications being adjusted by cardiology and increasing metoprolol dose. Patient is maintained on eliquis and Baricitinib along with steroids and vitamin supplements. Continue tube feeds for nutritional support. Review of systems: Constitutional: reports of fatigue, no reports of fever, or chills Cardiovascular: No reports of chest pain or palpitations Respiratory: reports of shortness of breath GI: No reports of nausea, vomiting, or diarrhea, continued poor oral intake : No reports of dysuria or retention Neurovascular: reports of weakness, left greater than right All medications have been reviewed Active Medications Acetaminophen (Acetaminophen Tab 325 Mg Tab) 650 mg PO Q4HR PRN PRN Reason: Fever and/ or Pain Apixaban (Apixaban 5 Mg Tab) 5 mg PO BID [facility]; Protocol Last Admin: 08/09/21 21:13 Dose: 5 mg Documented by: Ascorbic Acid (Ascorbic Acid 500 Mg Tab) 500 mg PO DAILY [facility] Last Admin: 08/09/21 09:43 Dose: 500 mg Documented by: Atorvastatin Calcium (Atorvastatin 40 Mg Tab) 40 mg PO HS [facility] Last Admin: 08/09/21 21:13 Dose: 40 mg Documented by: Baricitinib (Baricitinib 2 Mg Tablet) 4 mg PO DAILY [facility] Stop: 08/13/21 09:01 Last Admin: 08/09/21 09:43 Dose: 4 mg Documented by: Calcium Carbonate/Glycine (Calcium Carbonate 500 Mg Chewable) 500 mg PO TID PRN PRN Reason: Heartburn Last Admin: 08/06/21 08:37 Dose: 500 mg Documented by: Cholecalciferol (Cholecalciferol 10 Mcg (400 Iu) Tablet) 10 mcg PO DAILY [facility] Last Admin: 08/09/21 09:43 Dose: 10 mcg Documented by: Dexamethasone Sodium Phosphate (Dexamethasone Sod Phosphate 10 Mg/Ml 1 Ml Vial) 6 mg IV DAILY [facility] Last Admin: 08/09/21 09:42 Dose: 6 mg Documented by: Sodium Chloride (Saline 0.9%) 1,000 mls @ 75 mls/hr IV .[id number] [facility] Last Admin: 08/09/21 21:15 Dose: 75 mls/hr Documented by: Diltiazem HCl 125 mg/ Sodium (Chloride) 125 mls @ 5 mls/hr IV .Q24H [facility] Last Admin: 08/09/21 13:25 Dose: Not Given Documented by: Insulin Aspart (Insulin Aspart (Novolog) 100 Unit/Ml Vial) 0 unit SQ Q6HR [facility]; Protocol Last Admin: 08/09/21 23:54 Dose: 2 unit Documented by: Metoprolol Tartrate (Metoprolol Tartrate 50 Mg Tab) 100 mg PO BID [facility] Last Admin: 08/09/21 21:14 Dose: 100 mg Documented by: Miscellaneous Information (Potassium Replacement Protocol 1 Each Misc) 1 each MISCELLANE DAILY PRN; Protocol PRN Reason: Per Protocol Miscellaneous Information (Magnesium Replacement Protocol 1 Each Misc) 1 each MISCELLANE DAILY PRN; Protocol PRN Reason: Per Protocol Pantoprazole Sodium (Pantoprazole 40 Mg/10 Ml Vial) 40 mg IVP BID [facility] Last Admin: 08/09/21 21:14 Dose: 40 mg Documented by: Sodium Chloride (Sodium Chloride 0.9% Flush 10 Ml Syringe) 10 ml IV Q4HR PRN PRN Reason: PICC Line Sodium Chloride (Sodium Chloride 0.9% Flush 10 Ml Syringe) 10 ml IV WEEKLY [facility] Last Admin: 08/09/21 09:44 Dose: 10 ml Documented by: Sodium Chloride (Sodium Chloride 0.9% Flush 10 Ml Syringe) 20 ml IV Q4HR PRN PRN Reason: PICC Line Zinc Sulfate (Zinc Sulfate 220 Mg Cap) 220 mg PO DAILY [facility] Last Admin: 08/09/21 09:42 Dose: 220 mg Documented by: PHYSICAL EXAMINATION: GENERAL: The patient is alert and oriented x2-3 extremely lethargic and fatigues easily and falls back asleep. Thin built HEENT: Pupils are round and equally reacting to light. EOMI. No scleral icterus. No conjunctival pallor. Normocephalic, atraumatic. No pharyngeal erythema. No thyromegaly. BiPAP mask noted CARDIOVASCULAR: S1 and S2 muffled. irregularly irregular rhythm PULMONARY: Diffuse bilateral coarse rhonchi noted with diminished breath sounds at the bases ABDOMEN: Soft, nontender, nondistended, normoactive bowel sounds. No palpable organomegaly. MUSCULOSKELETAL: No joint swelling or deformity. EXTREMITIES: No cyanosis, clubbing, or pedal edema. NEUROLOGICAL: Left stoner hand strength 3/5, right stoner hand strength 4/5. Diffusely weak, improvement in upper extremity strength although weakness remains present SKIN: No rashes. Assessment and plan: -Covid 19 pneumonia: Patient will be continued on Baricitinib, IV dexamethasone, zinc, and vitamin supplements, and patient also on eliquis and aspirin -Acute hypoxic respiratory failure secondary to COVID-19 pneumonia, continue on BiPAP -Atrial fibrillation with rapid ventricular rate new onset, currently rate controlled with metoprolol, cardiology following, brief episode of afib rvr and cardizem was ordered but converted and metoprolol being increased -elevated d-dimer with no evidence of PE on CTA, continue eliquis -Mild protein calorie malnutrition secondary to poor oral intake due to respiratory status deterioration, NG tube placed and maintained on tube feeds with dietitian following -possible hyperthyroidism with a TSH of 0.112 and a free T4 4.06, repeat TSH is within normal limits and will monitor -altered mental status possibly secondary to COVID-19 encephalopathy or possibly secondary to bilateral hemispheric stroke -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 Continue with BiPAP and wean as tolerated. Brief episode of afib rvr today and cardizem ordered and not given as patient converted to sinus rhythm. Metoprolol being increased. Repeat labs and continue to monitor closely. Prognosis is extremely guarded. Objective - Vital Signs Vital signs: Vital Signs Temp 97.1 F L 08/09/21 04:00 Pulse 95 08/09/21 07:00 Resp 27 H 08/09/21 07:00 BP 115/61 08/09/21 07:00 Pulse Ox 95 08/09/21 07:00 Intake & Output 08/08/21 08/09/21 08/09/21 18:59 06:59 18:59 Intake Total 1180 1360 105 Output Total 891 515 60 Balance 289 845 45 Weight 61.4 kg Intake: IV 900 900 75 Sodium Chloride 0.9% 1, 900 900 75 000 ml @ 75 mls/hr IV . [id number] [facility] Rx#:[id number] Tube Feeding 160 370 30 Other 120 90 Output: Urine 890 515 60 Stool 1 Other: Voiding Method Indwelling Catheter Indwelling Catheter # Bowel Movements 1 - Labs CBC & Chem 7: 08/09/21 03:35 08/09/21 03:35 Labs: Abnormal Lab Results - Last 24 Hours (Table) 08/08/21 08/08/21 08/08/21 Range/Units 04:00 08:49 11:42 WBC (3.8-10.6) k/uL Hgb (13.0-17.5) gm/dL Hct (39.0-53.0) % Neutrophils # (1.3-7.7) k/uL Lymphocytes # (1.0-4.8) k/uL D-Dimer (<0.60) mg/L FEU Sodium (137-145) mmol/L Chloride (98-107) mmol/L BUN (9-20) mg/dL Creatinine (0.66-1.25) mg/dL Glucose (74-99) mg/dL POC Glucose (mg/dL) 126 H 113 H (75-99) mg/dL Calcium (8.4-10.2) mg/dL Ferritin 955.0 H (22.0-322.0) ng/mL Alkaline Phosphatase (38-126) U/L Total Protein (6.3-8.2) g/dL Albumin (3.5-5.0) g/dL 08/08/21 08/08/21 08/09/21 Range/Units 17:45 23:08 03:35 WBC 16.6 H (3.8-10.6) k/uL Hgb 12.3 L (13.0-17.5) gm/dL Hct 37.5 L (39.0-53.0) % Neutrophils # 15.3 H (1.3-7.7) k/uL Lymphocytes # 0.6 L (1.0-4.8) k/uL D-Dimer (<0.60) mg/L FEU Sodium (137-145) mmol/L Chloride (98-107) mmol/L BUN (9-20) mg/dL Creatinine (0.66-1.25) mg/dL Glucose (74-99) mg/dL POC Glucose (mg/dL) 186 H 235 H (75-99) mg/dL Calcium (8.4-10.2) mg/dL Ferritin (22.0-322.0) ng/mL Alkaline Phosphatase (38-126) U/L Total Protein (6.3-8.2) g/dL Albumin (3.5-5.0) g/dL 08/09/21 08/09/21 Range/Units 03:35 03:35 WBC (3.8-10.6) k/uL Hgb (13.0-17.5) gm/dL Hct (39.0-53.0) % Neutrophils # (1.3-7.7) k/uL Lymphocytes # (1.0-4.8) k/uL D-Dimer 24.44 H (<0.60) mg/L FEU Sodium 131 L (137-145) mmol/L Chloride 108 H (98-107) mmol/L BUN 29 H (9-20) mg/dL Creatinine 0.51 L (0.66-1.25) mg/dL Glucose 193 H (74-99) mg/dL POC Glucose (mg/dL) (75-99) mg/dL Calcium 6.6 L (8.4-10.2) mg/dL Ferritin (22.0-322.0) ng/mL Alkaline Phosphatase 141 H (38-126) U/L Total Protein 4.2 L (6.3-8.2) g/dL Albumin 1.8 L (3.5-5.0) g/dL
[2021-08-10 03:39] LABS: Basophils % (A) 0 %; Eosinophils # (A) 0.1 k/uL (0-0.7); Eosinophils % (A) 1 %; HCT 37.7 % (39.0-53.0); HGB 12.4 gm/dL (13.0-17.5); Lymphocytes # (A) 0.5 k/uL (1.0-4.8); Lymphocytes % (A) 2 %; MCH 28.3 pg (25.0-35.0); MCHC 32.9 g/dL (31.0-37.0); MCV 86.2 fL (80.0-100.0); Mean Platelet Volume 8.6; Monocytes # (A) 0.5 k/uL (0-1.0); Monocytes % (A) 2 %; Neutrophils # (A) 23.2 k/uL (1.3-7.7); Neutrophils % (A) 95 %; Platelet Count 174 k/uL (150-450); RBC 4.37 m/uL (4.30-5.90); WBC 24.4 k/uL (3.8-10.6)
[2021-08-10 03:48] LABS: ALT 32 U/L (4-49); AST 37 U/L (17-59); African American GFR (CKD) >90 (>60 ml/min/1.73 sqM); Alkaline Phosphatase 153 U/L (38-126); Anion Gap 4 mmol/L; Blood Urea Nitrogen 31 mg/dL (9-20); Calcium 7.3 mg/dL (8.4-10.2); Carbon Dioxide 24 mmol/L (22-30); Chloride 102 mmol/L (98-107); Glucose 231 mg/dL (74-99); Non-African American GFR(CKD) >90 (>60 ml/min/1.73 sqM); Total Protein 4.6 g/dL (6.3-8.2)
[2021-08-10] MEDS: INSULIN ASPART (NovoLOG) 100 UNIT/ML VIAL SQ SCH ×3 (05:36→18:27)
--- NOTE | 2021-08-10 07:50 | XR ---
EXAMINATION TYPE: XR chest 1V portable DATE OF EXAM: 08/10/2021 Comparison: 08/09/2021 Clinical History: 75-year-old male assess lungs. COVID Findings: NG tube side hole just below the GE junction level. Left PICC tip in the lower right atrium. ACDF leigha dware. Continued patchy bilateral peripheral and retrocardiac opacities. There may be slight improvin g aeration on the left. Heart normal size. Impression: Continued patchy peripheral bilateral COVID pneumonia. There may be slight interval improvement on th e left.
[2021-08-10 08:04] LABS: Potassium 3.9 mmol/L (3.5-5.1); Sodium 131 mmol/L (137-145)
[2021-08-10] MEDS: CHOLECALCIFEROL 10 MCG (400 IU) TABLET PO SCH (09:15)
[2021-08-10] MEDS: DEXAMETHASONE SOD PHOSPHATE 10 MG/ML 1 ML VIAL IV SCH (09:15)
[2021-08-10] MEDS: APIXABAN 5 MG TAB PO SCH ×2 (09:15→21:20)
[2021-08-10] MEDS: BARICITINIB 2 MG TABLET PO SCH (09:15)
[2021-08-10] MEDS: PANTOPRAZOLE 40 MG/10 ML VIAL IVP SCH ×2 (09:15→21:20)
[2021-08-10] MEDS: METOPROLOL TARTRATE 50 MG TAB PO SCH ×2 (09:15→21:20)
[2021-08-10] MEDS: ZINC SULFATE 220 MG CAP PO SCH (09:15)
[2021-08-10] MEDS: ASCORBIC ACID 500 MG TAB PO SCH (09:15)
[2021-08-10 12:23] LABS: Glucose,Whole Blood 141 mg/dL (75-99)
[2021-08-10] MEDS: SODIUM CHLORIDE 0.9% 1,000 ML IV SCH (12:23)
--- NOTE | 2021-08-10 12:34 | P.PN ---
Subjective Progress Note Date: 08/10/21 Principal diagnosis: Acute hypoxic respiratory failure secondary to COVID-19 pneumonia 08/06/2021, seeing this patient for a follow-up. The patient remains in intensive care unit for COVID-19 related pneumonia and secondary respiratory failure. He was having more difficulties in breathing yesterday. At one point, he came as high as 15 L of oxygen by nasal cannula. Currently is down to 9 L. He is on Decadron 6 mg IV every 24 hours and he remains on Baricitinib. Chest x-ray still showing diffuse but the pulmonary infiltrates consistent with COVID- 19 related pneumonia. In terms of inflammatory markers, d-dimer still elevated at 26 and LDH level is at 2152 with a CRP level of 5.6. He is afebrile. He is hemodynamically stable. Is producing adequate amount of urine output. He remains on anticoagulation with Eliquis at a dose of 5 mg by mouth twice a day. Rest of the blood work essentially stable. His creatinine is at 0.5 with a BUN of 24. White cell count is 24. Adequate urine output. He remains on normal saline at the rate of 75 mL an hour. Cardiac rhythm is still in atrial fibrillation. Rate is controlled for now. He did have a bout of heartburn this morning and he was given Tums and he improved. He is taking applesauce and he is advancing his diet as tolerated. No agitation. No restlessness. Mental status is improved considerably. His communicating. He is alert. 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 The repeat CAT scan of the brain was done yesterday and showed cerebral atrophy without any new changes. 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 No evidence of any acute bleeding. His bicarb deficit has also been corrected. Patient was reevaluated today on 08/07/2021, patient is now in the ICU, he is marginal at best, he was on 7 L nasal cannula high flow, however he seems to be doing worse today, and I have recommended that he goes on BiPAP. Patient was placed on BiPAP at 14/6, and his repeat ABG showed a pO2 of 86 pCO2 of 32 pH of 7.46, hence and keeping the patient on BiPAP for now. She count today is 25.4 hemoglobin 14.4 electrodes are normal. Renal Profile is normal. Chest x-ray continues to show bilateral groundglass consolidation in the periphery of the lungs, slightly worse compared to his baseline. And he has a PICC line is noted . Reevaluated today on 08/08/2021, patient remains in the ICU, on BiPAP with IPAP 14 EPAP of 7 FiO2 is 50%, cut it down to 45%, patient is on IV fluid at 75 mL per hour patient seems to be BiPAP dependent and today and planning to place a nasogastric tube and suddenly start enteral feeding on this patient. He is in A. fib rate of 88, O2 saturation is in the mid 90s. Patient seems to be quite lethargic, but arousable, follows simple instructions, seems to be generally weak and exhausted. He is definitely not in respiratory distress. Seems to be doing well on BiPAP. Respiratory see count today is 19.4, d-dimer is significantly elevated. Electrolytes are normal renal profile is normal. LDH seems to be trending down a bit down to 1881. From 3255 few days ago. Medications-hernández patient is on Eliquis at 5 mg twice a day vitamin C, Lipitor,baricitinib, atorvastatin, Tums, vitamin D, Decadron 6 mg IV daily, Toprol 50 mg 3 times a day, Protonix, and zinc. Patient will be started on ent eral feeding today. Once a nasogastric tube has been placed. Reevaluated today on 08/09/2021, patient remains in the ICU, remains on BiPAP with IPAP of 14 EPAP of 7 however his FiO2 is down to 30%. Patient is in atrial fibrillation with RVR, hence I will bolus the patient with Cardizem and placed on a Cardizem drip at 5 mg per hour. Patient remained generally weak, he is arousable, seems to be quite lethargic, but arousable and follows simple instructions. Noted that the patient had significant weight gain since admission, hence the dose of Lasix was ordered 40 mg IV push 1, patient remains on IV fluid at 75 mL/h, he is now receiving enteral feeding via nasogastric tube which was placed yesterday. Not yet up to goal. D-dimer remains elevated at 24, however the patient is on Eliquis. Patient is hemodynamically stable, Chest x-ray continues to show by lateral infiltrates, however the left side seems to be more affected than right side. She count today 16.6 hemoglobin is 12.3 d-dimer is 24.4 electrodes are normal renal profile is normal. Patient was reevaluated today on 08/10/2021, remains in the ICU, remains on BiPAP, he is on IPAP of 14 EPAP of 7 FiO2 of 30 0%, remains on IV fluid/0.9 normal saline at 75 mL/h. Remains on enteral feeding using vital AF at 57 mL per hour. Patient remains lethargic, however arousable, and the patient is clearly encephalopathic. Hence we'll recommend a CT of the head today, and would like to have some further input from neurology after the CT of the head on this patient. I believe his encephalopathy is related to his recent CVA and also related to COVID-19 encephalopathy. Pulmonary-hernández, the patient is not requiring much in the terms of FiO2, but he is requiring mostly a positive pressure ventilation mostly because he generally weak. 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 CBC is showing good of leukocytosis hence I recommended a pro-calcitonin level, and if elevated may empirically start the patient on antibiotics and discontinue his baricitinib. Few days ago, his pro-calcitonin was 0.07. Thyroid profile was normal. D-dimer remains elevated at 24.44, improving. Asked x-ray is showing slight interval improvement nonetheless the patient continues to have patchy peripheral bilateral infiltrates Objective - Vital Signs Vital signs: Vital Signs Temp 97.8 F 08/10/21 12:00 Pulse 70 08/10/21 12:00 Resp 23 08/10/21 12:00 BP 112/53 08/10/21 12:00 Pulse Ox 97 08/10/21 12:00 Intake & Output 08/09/21 08/10/21 08/10/21 18:59 06:59 18:59 Intake Total 1175 1532 564 Output Total 2127 1015 403 Balance -952 517 161 Intake: IV 825 900 450 Sodium Chloride 0.9% 1, 825 900 450 000 ml @ 75 mls/hr IV . [id number] [facility] Rx#:[id number] Tube Feeding 350 542 114 Other 90 Output: Urine 2125 1015 403 Stool 2 Other: Voiding Method Indwelling Catheter Indwelling Catheter Indwelling Catheter - Exam Revealed 75-year-old white male comfortable on BiPAP. Lethargic. Head atraumatic, normocephalic. HEENT: PERRLA, EOMI, anicteric, no neck masses, no JVD.. CARDIOVASCULAR: Irregular irregular rhythm, no S3 gallop. PULMONARY: Symmetrical chest expansion crackles at the bases bilaterally. ABDOMEN: nontender no megaly no rebound. MUSCULOSKELETAL: No deformities noted limitation in range of motion.. EXTREMITIES: No cyanosis, clubbing, or pedal edema. NEUROLOGICAL: Lethargic, arousable, follows simple instructions. SKIN: No rashes. - Labs CBC & Chem 7: 08/10/21 03:30 08/10/21 03:30 Labs: Abnormal Lab Results - Last 24 Hours (Table) 08/09/21 08/09/21 08/09/21 Range/Units 13:18 18:11 23:52 WBC (3.8-10.6) k/uL Hgb (13.0-17.5) gm/dL Hct (39.0-53.0) % Neutrophils # (1.3-7.7) k/uL Lymphocytes # (1.0-4.8) k/uL Sodium (137-145) mmol/L BUN (9-20) mg/dL Creatinine (0.66-1.25) mg/dL Glucose (74-99) mg/dL POC Glucose (mg/dL) 201 H 180 H 191 H (75-99) mg/dL Calcium (8.4-10.2) mg/dL Alkaline Phosphatase (38-126) U/L Total Protein (6.3-8.2) g/dL Albumin (3.5-5.0) g/dL 08/10/21 08/10/21 08/10/21 Range/Units 03:30 03:30 12:21 WBC 24.4 H (3.8-10.6) k/uL Hgb 12.4 L (13.0-17.5) gm/dL Hct 37.7 L (39.0-53.0) % Neutrophils # 23.2 H (1.3-7.7) k/uL Lymphocytes # 0.5 L (1.0-4.8) k/uL Sodium 131 L (137-145) mmol/L BUN 31 H (9-20) mg/dL Creatinine 0.59 L (0.66-1.25) mg/dL Glucose 231 H (74-99) mg/dL POC Glucose (mg/dL) 141 H (75-99) mg/dL Calcium 7.3 L (8.4-10.2) mg/dL Alkaline Phosphatase 153 H (38-126) U/L Total Protein 4.6 L (6.3-8.2) g/dL Albumin 2.0 L (3.5-5.0) g/dL Assessment and Plan Assessment: Impression: Acute hypoxic respiratory failure secondary to COVID-19 pneumonia still on BiPAP. 17/05, FiO2 is 30% History of embolic CVA with secondary altered mental status. Not to mention the patient has possibly acute COVID-19 encephalopathy Leukocytosis with low pro calcitonin level. Elevated inflammatory markers second 2 COVID-19 pneumonia Type 2 diabetes. Chronic atrial fibrillation. Patient converted yesterday on his own to normal sinus rhythm and remains in sinus rhythm today. Did not require Cardizem yesterday Dyslipidemia. Recommendation: CT of the brain without contrast. May ask neurology to reassess the patient because of his mental status Continue BiPAP. Continue to monitor in the ICU. Titrate FiO2 accordingly. Continue Eliquis and aspirin. Continue Decadron and baricitinib Continue GI and DVT prophylaxis. Continue COVID-19 cocktail. Consider antibiotics if pro calcitonin is elevated mostly because of his leukocytosis. Critical care time is over 30 minutes Time with Patient: Greater than 30
--- NOTE | 2021-08-10 13:16 | CT ---
EXAMINATION TYPE: CT brain wo con DATE OF EXAM: 08/10/2021 HISTORY: Altered mental status CT DLP: 1078.4 mGycm. Automated Exposure Control for Dose Reduction was Utilized. TECHNIQUE: CT scan of the head is performed without contrast. COMPARISON: CT brain 5 days ago and older studies. FINDINGS: There is no acute intracranial hemorrhage or midline shift identified. There is mild-to-m oderate diffuse ventricular and sulcal prominence consistent with diffuse cerebral atrophy greatest o tyler the bilateral frontal lobes. Mild low-attenuation in the deep white matter. Old lacunar infarct right thalamus on axial image 24 redemonstrated The globes are intact and the visualized sinuses are clear. IMPRESSION: No acute intracranial hemorrhage or midline shift. There is mild to moderate diffuse ce rebral atrophy and mild chronic small vessel ischemic change along with old right thalamic lacunar in farct all redemonstrated. No significant change from most recent CT.
[2021-08-10 18:05] LABS: Glucose,Whole Blood 196 mg/dL (75-99)
[2021-08-10] MEDS: ATORVASTATIN 40 MG TAB PO SCH (21:20)
--- NOTE | 2021-08-10 22:56 | P.PN ---
Subjective Progress Note Date: 08/10/21 Patient initially seen by Dr. Kaiser Ochoa. Please refer to his note for details. Neuro re-consult requested by Dr. Rosemary Ochoa. Patient is apparently on BiPAP. Per nursing report, he is doing much better. He is following commands. He is trying to communicate even though he has BiPAP on. Patient denies headache, denies pain anywhere. Denies numbness tingling or weakness. He nods appropriately. WORK-UP: * CT of the head performed on 07/24/2021 is reported as abnormal area of attenuation within the right cerebellum may reflect vascular insult however underlying lesion or necrotic. Correlate with MRI. * Carotid duplex is reported as there is antegrade flow in the vertebral arteries. Images and measurements suggest 35% stenosis in both internal carotid arteries. * MRI of the brain report is reported as diffuse scattered area of restricted diffusion, correlate for embolic phenomena. In the body they reported it is reported that the patient has diffusion weighted image demonstrated restricted effusion and inferior cerebellar hemispheres bilaterally, scattered area of restricted diffusion in the cerebellum, occipital lobes are noted bilaterally as well as bilateral parietal. Encephalomalacia was noted in the region of the thalamus over the right likely due to chronic vascular insult. Scattered area of hyperdensity present in that. Colossal, periventricular and subcortical white matter on inversion recovery T2-weighted images are currently related to chronic small vessel ischemic changes also noted. I personally reviewed that MRI the brain and I do agree patient has bilateral hemispheric stroke over the cerebellar occipital region parietal, frontal is seems embolic in nature. * CT angiography of the head and neck was reported as atheromatous plaquing present bilaterally slightly greater on the left. No flow limiting stenosis bilateral carotid bifurcation. Finding are stable from 12/04/2019 at. Normal [place] [facility] [place]. * CT of the head was ordered as a result because of his altered mental status since reported as in keeping with a finding at recent MRI there are multiple focal area of decreased attenuation involving both cerebellar hemisphere and to a lesser extent the supratentorial region. Findings are compatible embolic ischemic insults. * CT head on 08/05/2021: yesterday because he had to what appeared right upper extremity weakness and was negative for bleed. It is reported as cerebral atrophy. No acute intracranial abnormality. No change. 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 I personally reviewed the CT of the head and I felt the patient had the subacute to chronic over bilateral cerebellar right more than left, he had chronic-appearing right thalamus, subacute to chronic bilateral subcortical frontal right more than left. There is no hemorrhage. There is no acute ischemia seen. * 2-D echo was reported as left ventricle size is normal. Moderate consider Limbitrol hypertrophy. Ejection fraction of 55-60%. Left ventricle filling pressure cannot be at estimated due to 8 atrial fibrillation. * Routine EEG is abnormal. The back or slowing suggestive of moderate to severe encephalopathy. There are no focal slowing, epileptiform discharges or seizure in the EEG. Clinical correlation is recommended. * Lipid panel is triglyceride of 104, cholesterol of 96, LDL 28 and HDL of 46. * AST of 115 and ALT of 77 * TSH is 0.112 and the free T4 is 4.06 * Hemoglobin A1c is 9.2 * Vitamin B12 is 2177 which is above normal but it's unremarkable. * Serum folate level is 5.70 and the normal supposed to be between 4.4-31 Objective - Vital Signs Vital signs: Vital Signs Temp 98.5 F 08/10/21 20:00 Pulse 61 08/10/21 22:00 Resp 17 08/10/21 22:00 BP 147/66 08/10/21 22:00 Pulse Ox 100 08/10/21 22:00 Intake & Output 08/10/21 08/10/21 08/11/21 06:59 18:59 06:59 Intake Total 1532 1203 369 Output Total 1015 1151 295 Balance 517 52 74 Intake: IV 900 975 225 Sodium Chloride 0.9% 1, 900 975 225 000 ml @ 75 mls/hr IV . [id number] [facility] Rx#:[id number] Tube Feeding 542 228 114 Other 90 30 Output: Urine 1015 1151 295 Other: Voiding Method Indwelling Catheter Indwelling Catheter Indwelling Catheter - Exam Patient is alert and awake, affect appears normal. He is making eye contact, follows commands. Comprehension is intact. Speech could not be assessed because of having BiPAP on. Pupils are round and reacting, visual [place] are full on confrontation. Extraocular muscles are intact. Face, tongue and palate cannot be assessed. Hearing appears normal. On muscle strength testing, patient holds arms up equally and then gradually d rops it down. His trackmobile operator appears normal on the right, 4+5-on the left. Biceps, triceps and deltoids are normal. Hip flexion is 4+ bilaterally. Ankles are normal bilaterally. Plantars are downgoing. Sensation to touch is equal. No obvious ataxia for [id number]. Gait cannot be checked. - Labs CBC & Chem 7: 08/10/21 03:30 08/10/21 03:30 Labs: Abnormal Lab Results - Last 24 Hours (Table) 08/09/21 08/10/21 08/10/21 Range/Units 23:52 03:30 03:30 WBC 24.4 H (3.8-10.6) k/uL Hgb 12.4 L (13.0-17.5) gm/dL Hct 37.7 L (39.0-53.0) % Neutrophils # 23.2 H (1.3-7.7) k/uL Lymphocytes # 0.5 L (1.0-4.8) k/uL Sodium 131 L (137-145) mmol/L BUN 31 H (9-20) mg/dL Creatinine 0.59 L (0.66-1.25) mg/dL Glucose 231 H (74-99) mg/dL POC Glucose (mg/dL) 191 H (75-99) mg/dL Calcium 7.3 L (8.4-10.2) mg/dL Alkaline Phosphatase 153 H (38-126) U/L Total Protein 4.6 L (6.3-8.2) g/dL Albumin 2.0 L (3.5-5.0) g/dL 08/10/21 08/10/21 Range/Units 12:21 18:03 WBC (3.8-10.6) k/uL Hgb (13.0-17.5) gm/dL Hct (39.0-53.0) % Neutrophils # (1.3-7.7) k/uL Lymphocytes # (1.0-4.8) k/uL Sodium (137-145) mmol/L BUN (9-20) mg/dL Creatinine (0.66-1.25) mg/dL Glucose (74-99) mg/dL POC Glucose (mg/dL) 141 H 196 H (75-99) mg/dL Calcium (8.4-10.2) mg/dL Alkaline Phosphatase (38-126) U/L Total Protein (6.3-8.2) g/dL Albumin (3.5-5.0) g/dL Assessment and Plan Assessment: Status post recent acute/subacute bilateral hemisphere stroke. Most likely cardioembolic in nature especially with new onset of atrial fibrillation Altered mental status with generalized weakness and dysphagia due to hypoxic encephalopathy from COVID-19 pneumonia ---mentation much improved as compared to previous examination. COVID-19 related pneumonia with secondary hypoxic respiratory failure, patient currently on BiPAP. History of old stroke 11/2019 and TIA 01/2020 without residual weakness or focality New-onset atrial fibrillation Diabetes mellitus (recent HbA1c is 9.2) Transaminitis and it's trending down Hypertension Hyperlipidemia Plan: * Patient's examination appears stable. Patient denies headache. Affect, mentation appears normal. * CT head from 08/10/2021 shows no acute process. Mild to moderate diffuse cerebral atrophy and mild chronic small vessel ischemic change along with old right thalamic lacunar infarct all redemonstrated. No significant changes compared to previous CT head. * Continue Eliquis 5 mg 1 tablet twice since has history of atrial fibrillation. * Continue Lipitor 40 mg daily at bedtime and if patient has worsening of LFT's will go down on dose. * PT, OT and GENERAL STORE MANAGER are consulted * Continue cardiac monitoring * May consider BARBARA, although may not change overall management. * We'll defer the rest of the medical management to the primary as well as a ICU team. * Recommend consideration of rehab and if possible inpatient. * Upon discharge, the patient needs to follow-up with his neurology team with 1- 2 weeks as outpatient ([facility]). * Neurologically clear. Please reconsult neurology if any concerns.
[2021-08-11] LABS: Glucose,Whole Blood 219 mg/dL (75-99)
[2021-08-11] MEDS: INSULIN ASPART (NovoLOG) 100 UNIT/ML VIAL SQ SCH ×4 (00:03→17:49)
[2021-08-11] MEDS: SODIUM CHLORIDE 0.9% 1,000 ML IV SCH ×2 (00:04→14:51)
[2021-08-11 06:12] LABS: Glucose,Whole Blood 313 mg/dL (75-99)
[2021-08-11 06:12] LABS: Glucose,Whole Blood 303 mg/dL (75-99)
--- NOTE | 2021-08-11 06:12 | PN ---
PROGRESS NOTE DATE OF SERVICE: 08/10/2021 REASON FOR FOLLOWUP: COVID-19 pneumonia. INTERVAL HISTORY: Patient is afebrile. The patient is lethargic and remains to be BiPAP dependent. The patient is hemodynamically stable, not on pressor support. No vomiting, diarrhea on any other changes reported by nursing staff. On examination, blood pressure 147/63 with a pulse of 71, temperature 98.5. General description is an elderly male lying in bed in no distress. Respiratory system: Unlabored breathing. Diminished breath sounds. Heart S1-S2 regular rate and rhythm. Abdomen: Soft. No tenderness. LABS: Hemoglobin is 12.4, white count 4.4, BUN of 31, creatinine 0.5, and procalcitonin 0.05. DIAGNOSTIC IMPRESSION AND PLAN: 1. Patient with acute COVID-19 pneumonia in this patient currently on by baricitinib, dexamethasone, zinc and ascorbic acid to continue. 2. Elevated white count more likely steroid effect and no evidence of any secondary bacterial pneumonia. Procalcitonin normal and we will monitor closely. MMODL / IJN: [id number] /
--- NOTE | 2021-08-11 07:12 | XR ---
EXAMINATION TYPE: XR chest 1V portable DATE OF EXAM: 08/11/2021 COMPARISON: 08/10/2021 HISTORY: Cough TECHNIQUE: Single frontal view of the chest is obtained. FINDINGS: Bilateral infiltrates and pleural effusion stable. PICC line and NG tube stable. Heart siz e normal. No pneumothorax. There does appear to be subcutaneous emphysema noted particularly on the l eft. Hypertrophic and degenerative change of the spine. IMPRESSION: Bilateral airspace disease correlate for multifocal pneumonia. Stable subcutaneous emphy sema on the left.
[2021-08-11 07:52] LABS: HCT 35.7 % (39.0-53.0); HGB 11.6 gm/dL (13.0-17.5); MCH 28.6 pg (25.0-35.0); MCHC 32.5 g/dL (31.0-37.0); MCV 87.8 fL (80.0-100.0); Mean Platelet Volume 8.3; Platelet Count 151 k/uL (150-450); RBC 4.06 m/uL (4.30-5.90); RDW 14.3 % (11.5-15.5); WBC 24.4 k/uL (3.8-10.6)
[2021-08-11 08:43] LABS: ALT 37 U/L (4-49); AST 47 U/L (17-59); African American GFR (CKD) >90 (>60 ml/min/1.73 sqM); Albumin 2.1 g/dL (3.5-5.0); Alkaline Phosphatase 191 U/L (38-126); Anion Gap 4 mmol/L; Blood Urea Nitrogen 25 mg/dL (9-20); Calcium 7.6 mg/dL (8.4-10.2); Carbon Dioxide 23 mmol/L (22-30); Chloride 102 mmol/L (98-107); Glucose 269 mg/dL (74-99); Magnesium 1.7 mg/dL (1.6-2.3); Non-African American GFR(CKD) >90 (>60 ml/min/1.73 sqM); Potassium 4.2 mmol/L (3.5-5.1); Sodium 129 mmol/L (137-145); Total Bilirubin 0.8 mg/dL (0.2-1.3); Total Protein 4.6 g/dL (6.3-8.2)
--- NOTE | 2021-08-11 08:53 | P.PN ---
Subjective Progress Note Date: 08/10/21 Patient is a 75 -year-old pleasant male was transferred from a outside hospital for atrial fibrillation with rapid ventricular rate. Patient is presently on therapeutic dose of Lovenox. Also has highly elevated INR. His baseline creatinine is unknown but his present creatinine is around the 0.66, patient is receiving half-normal saline at 75 mL per hour patient is also on Remdesivir, presently on 15 L of oxygen, CT of the chest did not show any pulmonary embolism but did show diffuse infiltrate patient was having symptoms for about 4 days patient was unable to provide much of history to me patient is too tired and weak. Patient is not tolerating any by mouth medications at this time because of which patient was started on IV Cardizem patient usually takes metoprolol 25 twice a day. Patient doesn't have any history of congestive heart failure. Patient was started on Decadron as well. Patient has highly elevated d-dimer. 08/01/2021 Patient is seen in follow-up continues to be closely monitored in the ICU. Patient is extremely lethargic although is arousable and intermittently resp onding appropriately to questions and commands. Patient continues to have delayed response and altered mental status and CT of the brain was ordered. Neurology has been consulted and pulmonary along with urology following closely. She continues on IV heparin along with IV Cardizem. white blood count is 14.1, hemoglobin is stable at 16.1, d-dimer is above 34.10, sodium is 141 with a potassium of 4.5 and current creatinine is 0.61. LDH is 30-55 and CRP is 6.3. TSH is 0.112 and free T4 is 4.06. patient is maintained on 15 L high flow nasal cannula along with occasional intermittent nonrebreather. Patient is afebrile. 08/02/2021 Patient is seen in follow up this morning and is being closely monitored in the ICU with multiple medical consultations following including pulmonary, infectiou s disease, cardiology, and neurology. CT of the brain recommending MRI and this is ordered and pending. Patient is on 13L HF nasal cannula. Mentation slowly improving and answering questions appropriately. Patient continues to be extremely weak and fatigues easily. Cardiology planning to transition cardizem to oral and possibly starting eliquis. 08/03/2021 Patient is seen and evaluated in follow-up this morning and patient continues to improve although continues to be extremely weak and fatigued. Multiple medical consultations following an neurology recommending BARBARA although was reviewed by cardiology and no plans for BARBARA at this time as MRI along with CT confirms embolic stroke with MRI showing a few scattered areas of restricted diffusion in the inferior cerebellar hemispheres bilaterally with scattered areas of restricted diffusion present in the cerebellum, occipital lobes, as well as bilateral parietal lobes. Patient continued on subcutaneous heparin with discussion of possibly starting Eliquis in the next 2 days. Patient has been started on Brilinta an neurology is following closely. Speech has evaluated the patient and recommending continuing the patient with nothing by mouth except medications as the swallow eval was not able to be completed due to extreme fatigue and lethargy. Speech will reevaluate the patient once more alert and awake. White blood count today is 17.6 with a hemoglobin of 14.6, d-dimer is elevated at 27.78, sodium is 135 with a potassium of 3.6, BUN is 33 and creatinine is 0.59. Blood sugars are being closely monitored. Repeat x-ray and labs along with inflammatory markers in the a.m. Continuing to wean as tolerated and patient is maintained on 9 L high flow and maintaining oxygen saturations of 97%. Patient with atrial fibrillation currently rate controlled with metoprolol and cardiology is following. 08/04/2021 Patient is seen in follow-up this morning continues to be in the ICU and continues to drift often fall asleep easily although mentation has improved. Patient states the year as 1990 but also states he knows that is wrong and states he is currently in the hospital for Covid but was unaware of any recent stroke. 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 Multiple medical consultations including neurology, cardiology, cable inspector along with infectious disease following closely. Patient being resumed on Eliquis and Brilinta has been discontinued. Chest x-ray today shows diffuse mild infiltrates greater on the left that can be compatible with atypical pneumonia. Awaiting repeat swallow eval today with the possibility of TPN for enteral nutrition as patient has been nothing by mouth. Patient continues on 11 L high flow and recommend to wean as tolerated. White blood count today is 27.3 with a hemoglobin of 15.6, d-dimer is 24.3, sodium is 131 with a potassium of 4.9, BUN is 26 and creatinine is 0.59. CRP is 4.3. Patient continues on baricitinib along with dexamethasone and vitamin and zinc supplements and will continue. 08/05/2021 Patient is evaluated today in the ICU, he is maintained on a BiPAP at the time of my assessment. Plan is to titrate oxygen as needed. Chest x-ray today reveals persistent left greater than right bilateral multifocal opacities. Labs are reviewed, White blood cell count 25.2. His d-dimer today is elevated at 29.09 which is slightly increased. LDH is 2286, CRP 5.8, pro calcitonin 0.07. Sodium today is 131. Vital signs include blood pressure 113/62. Respirations are 20s. Patient has remained afebrile. Swallow evaluation was conducted again today for follow-up for dysphagia intervention, that recommendations are for dysphagia 1. With honey thick liquid, supervision with basic needs. Patient n eeds one-to-one feeding with cues to swallow. Patient continues on baricitinib along with dexamethasone and vitamin and zinc supplements and will continue. Patient was evaluated by neurology today who feels as increasing right-sided weakness. Brain CT of the head initially reveals embolic ischemic insults. A repeat brain CT has been ordered to compare. We will hold off any BARBARA at this time per neurology and cardiology recommendations. 08/06/2021 Pt is alert and oriented x 3 at the time of my examination. He reports breathing better, able to take a deep breath. He is now on a 5L HF cannula with oxygen saturations in the mid 90s. BP today is 122/76, HR 88, afebrile. Labs are reviewed today, include a WBC of 24.6, sodium of 132, B of 24, Cr 0.57. Inflammatory markers continue to be elevated. Neurology has signed off today. Pt was able to lift left upper extremity off the bed however drifted and touched the bed after 2 seconds, his hand grasp was unequal with left weaker than right. A repeat brain CT was ordered for increasing upper extremity weakness. 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 There is no acute bleed. Patient continues on baricitinib, dexamethasone, zinc, and vitamins and will continue. 08/07/2021 Patient was seen and evaluated in follow-up as morning continues to be closely monitored in the ICU. Patient stating his shortness of breath mildly worsened and was on 5 L and now 7 L high flow. White blood count elevated at 25.4 and hemoglobin is stable at 14.4, sodium is 132 with a potassium of 3.9 current creatinine is 0.56. Magnesium is 2.0. Multiple medical consultations including neurology, infectious disease, and pulmonary following. Chest x-ray today shows bilateral groundglass consolidation slightly worsened in the interval. Patient is fatigued although arousable and responding appropriately. Left-sided weakness continues. Patient continues on IV dexamethasone along with vitamin and zinc supplements continued on anti-coagulant in the form of Eliquis and Baricitinib. Patient was also maintained on sliding scale along with long acting insulin although sugars have been low and actually required one amp of dextrose for a sugar less than 50 and will discontinue long-acting and continue sliding scale as needed. 08/08/2021 Patient is seen and evaluated in follow-up currently placed on BiPAP as patient oxygen saturations continued to deteriorate and patient was more lethargic. Patient continues to be in the ICU being closely monitored. BiPAP FiO2 is 40%. Patient is continued on vitamin and zinc supplements along with baricitinib, IV dexamethasone and eliquis and will continue. Pulmonary following closely. Patient continues to be lethargic with continued poor oral intake an NG tube was placed and dietitian consulted to begin tube feeds. Recommend Accu-Cheks and use sliding scale as needed. Chest x-ray this morning shows persistent left greater than right bilateral multifocal and confluent opacification his consistent with COVID-19 and no significant change from previous. 08/09/2021 Patient is seen and evaluated this morning and having a brief episode of atrial fibrillation with RVR with a heart rate of 130's -150's and cardizem was ordered although IV lasix dose was given and oral metoprolol most recently and appears to have converted back in sinus rhythm. Patient was extremely restless and attempting to take bipap mask off. Patient was extremely anxious and expressing concern of having to have a bowel movement. Multiple medical consultations following. Medications being adjusted by cardiology and increasing metoprolol dose. Patient is maintained on eliquis and Baricitinib along with steroids and vitamin supplements. Continue tube feeds for nutritional support. 08/10/2021 Patient was seen and evaluated in follow-up this morning continues to be closely monitored in the ICU with multiple medical consultations including pulmonary cable inspector, infectious disease, and neurology has been asked to reevaluate the patient as patient continues to have intermittent periods of confusion but doesn't appear to be a change from previous. Patient is extremely lethargic and maintained on BiPAP although is arousable but continues to fatigue easily and follows sleep. Repeat CT of the brain has been ordered and pending. Patient continues on gentle IV hydration along with vitamin and zinc supplements and is maintained on oral anticoagulant along with IV dexamethasone. Patient is tolerating tube feedings via NG tube and blood sugars now mildly elevated and will continue sliding scale and Accu-Cheks before meals and at bedtime. White blood count is elevated at 24.4 and hemoglobin is 12.4, sodium remains low at 131 with a potassium of 3.9 and current creatinine is 0.59. LFTs within normal limits and pro calcitonin is 0.05. Chest x-ray this morning shows continued patchy peripheral bilateral Covid pneumonia with some slight improvement on the left. Review of systems: Constitutional: reports of fatigue, no reports of fever, or chills Cardiovascular: No reports of chest pain or palpitations Respiratory: reports of shortness of breath GI: No reports of nausea, vomiting, or diarrhea, continued poor oral intake, tolerating tube feeds : No reports of dysuria or retention Neurovascular: reports of generalized weakness, left greater than right All medications have been reviewed Active Medications Acetaminophen (Acetaminophen Tab 325 Mg Tab) 650 mg PO Q4HR PRN PRN Reason: Fever and/ or Pain Apixaban (Apixaban 5 Mg Tab) 5 mg PO BID CARISSA; Protocol Last Admin: 08/10/21 21:20 Dose: 5 mg Documented by: Ascorbic Acid (Ascorbic Acid 500 Mg Tab) 500 mg PO DAILY CARISSA Last Admin: 08/10/21 09:15 Dose: 500 mg Documented by: Atorvastatin Calcium (Atorvastatin 40 Mg Tab) 40 mg PO HS CARISSA Last Admin: 08/10/21 21:20 Dose: 40 mg Documented by: Baricitinib (Baricitinib 2 Mg Tablet) 4 mg PO DAILY CARISSA Stop: 08/13/21 09:01 Last Admin: 08/10/21 09:15 Dose: 4 mg Documented by: Calcium Carbonate/Glycine (Calcium Carbonate 500 Mg Chewable) 500 mg PO TID PRN PRN Reason: Heartburn Last Admin: 08/06/21 08:37 Dose: 500 mg Documented by: Cholecalciferol (Cholecalciferol 10 Mcg (400 Iu) Tablet) 10 mcg PO DAILY [facility] Last Admin: 08/10/21 09:15 Dose: 10 mcg Documented by: Dexamethasone Sodium Phosphate (Dexamethasone Sod Phosphate 10 Mg/Ml 1 Ml Vial) 6 mg IV DAILY [facility] Last Admin: 08/10/21 09:15 Dose: 6 mg Documented by: Sodium Chloride (Saline 0.9%) 1,000 mls @ 75 mls/hr IV .[id number] [facility] Last Admin: 08/11/21 00:04 Dose: 75 mls/hr Documented by: Insulin Aspart (Insulin Aspart (Novolog) 100 Unit/Ml Vial) 0 unit SQ Q6HR [facility]; Protocol Last Admin: 08/11/21 06:21 Dose: 5 unit Documented by: Metoprolol Tartrate (Metoprolol Tartrate 50 Mg Tab) 100 mg PO BID [facility] Last Admin: 08/10/21 21:20 Dose: 100 mg Documented by: Miscellaneous Information (Potassium Replacement Protocol 1 Each Misc) 1 each MISCELLANE DAILY PRN; Protocol PRN Reason: Per Protocol Miscellaneous Information (Magnesium Replacement Protocol 1 Each Misc) 1 each MISCELLANE DAILY PRN; Protocol PRN Reason: Per Protocol Pantoprazole Sodium (Pantoprazole 40 Mg/10 Ml Vial) 40 mg IVP BID [facility] Last Admin: 08/10/21 21:20 Dose: 40 mg Documented by: Sodium Chloride (Sodium Chloride 0.9% Flush 10 Ml Syringe) 10 ml IV Q4HR PRN PRN Reason: PICC Line Sodium Chloride (Sodium Chloride 0.9% Flush 10 Ml Syringe) 10 ml IV WEEKLY [facility] Last Admin: 08/09/21 09:44 Dose: 10 ml Documented by: Sodium Chloride (Sodium Chloride 0.9% Flush 10 Ml Syringe) 20 ml IV Q4HR PRN PRN Reason: PICC Line Zinc Sulfate (Zinc Sulfate 220 Mg Cap) 220 mg PO DAILY [facility] Last Admin: 08/10/21 09:15 Dose: 220 mg Documented by: PHYSICAL EXAMINATION: GENERAL: The patient is alert and oriented x2-3 extremely lethargic and fatigues easily and falls back asleep. Thin built. Continues on BiPAP HEENT: Pupils are round and equally reacting to light. EOMI. No scleral icterus. No conjunctival pallor. Normocephalic, atraumatic. No pharyngeal erythema. No thyromegaly. BiPAP mask noted CARDIOVASCULAR: S1 and S2 muffled. irregularly irregular rhythm PULMONARY: Diffuse bilateral coarse rhonchi noted with diminished breath sounds at the bases ABDOMEN: Soft, nontender, nondistended, normoactive bowel sounds. No palpable organomegaly. MUSCULOSKELETAL: No joint swelling or deformity. EXTREMITIES: No cyanosis, clubbing, or pedal edema. NEUROLOGICAL: Left ruby on rails software developer strength 3/5, right ruby on rails software developer strength 4/5. Diffusely weak, improvement in upper extremity strength although weakness remains present SKIN: No rashes. Assessment and plan: -Covid 19 pneumonia: Patient will be continued on Baricitinib, IV dexamethasone, zinc, and vitamin supplements, and patient also on eliquis and aspirin -Acute hypoxic respiratory failure secondary to COVID-19 pneumonia, continue on BiPAP -Atrial fibrillation with rapid ventricular rate new onset, currently rate controlled with metoprolol, cardiology following, metoprolol increased -elevated d-dimer with no evidence of PE on CTA, continue eliquis -Mild protein calorie malnutrition secondary to poor oral intake due to respiratory status deterioration, NG tube placed and maintained on tube feeds with dietitian following -possible hyperthyroidism with a TSH of 0.112 and a free T4 4.06, repeat TSH is within normal limits and will monitor -altered mental status possibly secondary to COVID-19 encephalopathy or possibly secondary to bilateral hemispheric stroke, repeat CT ordered with no changes noted from previous -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 Continue with BiPAP and wean as tolerated. Metoprolol has been increased to 100 mg twice a day with cardiology following. No significant change on chest x-ray and will repeat chest x-ray along with labs in the a.m. Blood sugars have become more elevated and will continue on Accu-Cheks and sliding scale as tube feedings have started and may add low-dose long-acting insulin if blood sugars continue to be elevated. 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 Prognosis is extremely guarded. Objective - Vital Signs Vital signs: Vital Signs Temp 98.8 F 08/10/21 08:00 Pulse 81 08/10/21 09:00 Resp 20 08/10/21 09:00 BP 121/54 08/10/21 09:00 Pulse Ox 91 L 08/10/21 09:00 Intake & Output 08/09/21 08/10/21 08/10/21 18:59 06:59 18:59 Intake Total 1175 1532 132 Output Total 2127 1015 75 Balance -952 517 57 Intake: IV 825 900 75 Sodium Chloride 0.9% 1, 825 900 75 000 ml @ 75 mls/hr IV . [id number] [facility] Rx#:[id number] Tube Feeding 350 542 57 Other 90 Output: Urine 2125 1015 75 Stool 2 Other: Voiding Method Indwelling Catheter Indwelling Catheter - Labs CBC & Chem 7: 08/11/21 07:19 08/11/21 07:19 Labs: Abnormal Lab Results - Last 24 Hours (Table) 08/09/21 08/09/21 08/09/21 Range/Units 13:18 18:11 23:52 WBC (3.8-10.6) k/uL Hgb (13.0-17.5) gm/dL Hct (39.0-53.0) % Neutrophils # (1.3-7.7) k/uL Lymphocytes # (1.0-4.8) k/uL Sodium (137-145) mmol/L BUN (9-20) mg/dL Creatinine (0.66-1.25) mg/dL Glucose (74-99) mg/dL POC Glucose (mg/dL) 201 H 180 H 191 H (75-99) mg/dL Calcium (8.4-10.2) mg/dL Alkaline Phosphatase (38-126) U/L Total Protein (6.3-8.2) g/dL Albumin (3.5-5.0) g/dL 08/10/21 08/10/21 Range/Units 03:30 03:30 WBC 24.4 H (3.8-10.6) k/uL Hgb 12.4 L (13.0-17.5) gm/dL Hct 37.7 L (39.0-53.0) % Neutrophils # 23.2 H (1.3-7.7) k/uL Lymphocytes # 0.5 L (1.0-4.8) k/uL Sodium 131 L (137-145) mmol/L BUN 31 H (9-20) mg/dL Creatinine 0.59 L (0.66-1.25) mg/dL Glucose 231 H (74-99) mg/dL POC Glucose (mg/dL) (75-99) mg/dL Calcium 7.3 L (8.4-10.2) mg/dL Alkaline Phosphatase 153 H (38-126) U/L Total Protein 4.6 L (6.3-8.2) g/dL Albumin 2.0 L (3.5-5.0) g/dL
[2021-08-11] MEDS: PANTOPRAZOLE 40 MG/10 ML VIAL IVP SCH ×2 (09:28→21:01)
[2021-08-11] MEDS: APIXABAN 5 MG TAB PO SCH ×2 (09:28→21:02)
[2021-08-11] MEDS: BARICITINIB 2 MG TABLET PO SCH (09:28)
[2021-08-11] MEDS: DEXAMETHASONE SOD PHOSPHATE 10 MG/ML 1 ML VIAL IV SCH (09:28)
[2021-08-11] MEDS: METOPROLOL TARTRATE 50 MG TAB PO SCH ×2 (09:28→21:02)
[2021-08-11] MEDS: CHOLECALCIFEROL 10 MCG (400 IU) TABLET PO SCH (09:28)
[2021-08-11] MEDS: ZINC SULFATE 220 MG CAP PO SCH (09:28)
[2021-08-11] MEDS: ASCORBIC ACID 500 MG TAB PO SCH (09:28)
[2021-08-11 11:27] LABS: Glucose,Whole Blood 267 mg/dL (75-99)
--- NOTE | 2021-08-11 12:52 | P.PN ---
Subjective Progress Note Date: 08/11/21 Principal diagnosis: Acute hypoxic respiratory failure secondary to COVID-19 pneumonia 08/06/2021, seeing this patient for a follow-up. The patient remains in intensive care unit for COVID-19 related pneumonia and secondary respiratory failure. He was having more difficulties in breathing yesterday. At one point, he came as high as 15 L of oxygen by nasal cannula. Currently is down to 9 L. He is on Decadron 6 mg IV every 24 hours and he remains on Baricitinib. Chest x-ray still showing diffuse but the pulmonary infiltrates consistent with COVID- 19 related pneumonia. In terms of inflammatory markers, d-dimer still elevated at 26 and LDH level is at 2152 with a CRP level of 5.6. He is afebrile. He is hemodynamically stable. Is producing adequate amount of urine output. He remains on anticoagulation with Eliquis at a dose of 5 mg by mouth twice a day. Rest of the blood work essentially stable. His creatinine is at 0.5 with a BUN of 24. White cell count is 24. Adequate urine output. He remains on normal saline at the rate of 75 mL an hour. Cardiac rhythm is still in atrial fibrillation. Rate is controlled for now. He did have a bout of heartburn this morning and he was given Tums and he improved. He is taking applesauce and he is advancing his diet as tolerated. No agitation. No restlessness. Mental status is improved considerably. His communicating. He is alert. 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 The repeat CAT scan of the brain was done yesterday and showed cerebral atrophy without any new changes. 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 No evidence of any acute bleeding. His bicarb deficit has also been corrected. Patient was reevaluated today on 08/07/2021, patient is now in the ICU, he is marginal at best, he was on 7 L nasal cannula high flow, however he seems to be doing worse today, and I have recommended that he goes on BiPAP. Patient was placed on BiPAP at 14/6, and his repeat ABG showed a pO2 of 86 pCO2 of 32 pH of 7.46, hence and keeping the patient on BiPAP for now. She count today is 25.4 hemoglobin 14.4 electrodes are normal. Renal Profile is normal. Chest x-ray continues to show bilateral groundglass consolidation in the periphery of the lungs, slightly worse compared to his baseline. And he has a PICC line is noted . Reevaluated today on 08/08/2021, patient remains in the ICU, on BiPAP with IPAP 14 EPAP of 7 FiO2 is 50%, cut it down to 45%, patient is on IV fluid at 75 mL per hour patient seems to be BiPAP dependent and today and planning to place a nasogastric tube and suddenly start enteral feeding on this patient. He is in A. fib rate of 88, O2 saturation is in the mid 90s. Patient seems to be quite lethargic, but arousable, follows simple instructions, seems to be generally weak and exhausted. He is definitely not in respiratory distress. Seems to be doing well on BiPAP. Respiratory see count today is 19.4, d-dimer is significantly elevated. Electrolytes are normal renal profile is normal. LDH seems to be trending down a bit down to 1881. From 3255 few days ago. Medications-hernández patient is on Eliquis at 5 mg twice a day vitamin C, Lipitor,baricitinib, atorvastatin, Tums, vitamin D, Decadron 6 mg IV daily, Toprol 50 mg 3 times a day, Protonix, and zinc. Patient will be started on ent eral feeding today. Once a nasogastric tube has been placed. Reevaluated today on 08/09/2021, patient remains in the ICU, remains on BiPAP with IPAP of 14 EPAP of 7 however his FiO2 is down to 30%. Patient is in atrial fibrillation with RVR, hence I will bolus the patient with Cardizem and placed on a Cardizem drip at 5 mg per hour. Patient remained generally weak, he is arousable, seems to be quite lethargic, but arousable and follows simple instructions. Noted that the patient had significant weight gain since admission, hence the dose of Lasix was ordered 40 mg IV push 1, patient remains on IV fluid at 75 mL/h, he is now receiving enteral feeding via nasogastric tube which was placed yesterday. Not yet up to goal. D-dimer remains elevated at 24, however the patient is on Eliquis. Patient is hemodynamically stable, Chest x-ray continues to show by lateral infiltrates, however the left side seems to be more affected than right side. She count today 16.6 hemoglobin is 12.3 d-dimer is 24.4 electrodes are normal renal profile is normal. Patient was reevaluated today on 08/10/2021, remains in the ICU, remains on BiPAP, he is on IPAP of 14 EPAP of 7 FiO2 of 30 0%, remains on IV fluid/0.9 normal saline at 75 mL/h. Remains on enteral feeding using vital AF at 57 mL per hour. Patient remains lethargic, however arousable, and the patient is clearly encephalopathic. Hence we'll recommend a CT of the head today, and would like to have some further input from neurology after the CT of the head on this patient. I believe his encephalopathy is related to his recent CVA and also related to COVID-19 encephalopathy. Pulmonary-hernández, the patient is not requiring much in the terms of FiO2, but he is requiring mostly a positive pressure ventilation mostly because he generally weak. 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 CBC is showing good of leukocytosis hence I recommended a pro-calcitonin level, and if elevated may empirically start the patient on antibiotics and discontinue his baricitinib. Few days ago, his pro-calcitonin was 0.07. Thyroid profile was normal. D-dimer remains elevated at 24.44, improving. Asked x-ray is showing slight interval improvement nonetheless the patient continues to have patchy peripheral bilateral infiltrates Patient was reevaluated today on 08/11/2021, patient remains in the ICU, he was transitioned today from BiPAP to liters nasal cannula, and his O2 saturation is 100%. His mental status is significantly improved today, patient seems to be more awake, more appropriate, his affect is significantly improved, patient is able to answer questions, however he does not know the name of the president. Patient will use a year, knew where he was, and I was able to titrate his FiO2 down to 4 L and maintained his O2 saturation in the 90s. Patient was seen by neurology yesterday, and he was noted to be generally weak. CT of the head showed basically no change in his previous CVA findings. Patient remains on Eliquis. Remains on occupational and physical therapy, and I would seriously consider transferring the patient to the floor in the next 24 hours. May eventually need outpatient rehabilitation. WBC count today is 24.4, not different from yesterday. Sodium is 129 and electrolytes are normal otherwise. Renal profile is normal. Objective - Vital Signs Vital signs: Vital Signs Temp 98.8 F 08/11/21 12:00 Pulse 64 08/11/21 12:00 Resp 21 08/11/21 12:00 BP 174/73 08/11/21 12:00 Pulse Ox 94 L 08/11/21 12:00 Intake & Output 08/10/21 08/11/21 08/11/21 18:59 06:59 18:59 Intake Total 1203 1542 564 Output Total 1151 1680 866 Balance 52 -138 -302 Weight 62 kg 62 kg Intake: IV 975 825 450 Sodium Chloride 0.9% 1, 975 825 450 000 ml @ 75 mls/hr IV . [id number] [facility] Rx#:[id number] Tube Feeding 228 627 114 Other 90 Output: Urine 1151 1680 866 Other: Voiding Method Indwelling Catheter Indwelling Catheter Indwelling Catheter # Bowel Movements 1 - Exam Revealed 75-year-old white male comfortable on 6 L nasal cannula, noted to be more awake and not in distress today. Head atraumatic, normocephalic. HEENT: PERRLA, EOMI, anicteric, no neck masses, no JVD.. CARDIOVASCULAR: Irregular irregular rhythm, no S3 gallop. PULMONARY: Symmetrical chest expansion crackles at the bases bilaterally. ABDOMEN: nontender no megaly no rebound. MUSCULOSKELETAL: No deformities noted limitation in range of motion.. EXTREMITIES: No cyanosis, clubbing, or pedal edema. NEUROLOGICAL: Bit more awake today compared to yesterday, generally weak and mental status seems to be improving. Still didn't know the name of the president but he knew the year and the place he is an SKIN: No rashes. - Labs CBC & Chem 7: 08/11/21 07:19 08/11/21 07:19 Labs: Abnormal Lab Results - Last 24 Hours (Table) 08/10/21 08/10/21 08/11/21 Range/Units 18:03 23:58 06:08 WBC (3.8-10.6) k/uL RBC (4.30-5.90) m/uL Hgb (13.0-17.5) gm/dL Hct (39.0-53.0) % Sodium (137-145) mmol/L BUN (9-20) mg/dL Creatinine (0.66-1.25) mg/dL Glucose (74-99) mg/dL POC Glucose (mg/dL) 196 H 219 H 313 H (75-99) mg/dL Calcium (8.4-10.2) mg/dL Alkaline Phosphatase (38-126) U/L Total Protein (6.3-8.2) g/dL Albumin (3.5-5.0) g/dL 08/11/21 08/11/21 08/11/21 Range/Units 06:10 07:19 07:19 WBC 24.4 H (3.8-10.6) k/uL RBC 4.06 L (4.30-5.90) m/uL Hgb 11.6 L (13.0-17.5) gm/dL Hct 35.7 L (39.0-53.0) % Sodium 129 L (137-145) mmol/L BUN 25 H (9-20) mg/dL Creatinine 0.53 L (0.66-1.25) mg/dL Glucose 269 H (74-99) mg/dL POC Glucose (mg/dL) 303 H (75-99) mg/dL Calcium 7.6 L (8.4-10.2) mg/dL Alkaline Phosphatase 191 H (38-126) U/L Total Protein 4.6 L (6.3-8.2) g/dL Albumin 2.1 L (3.5-5.0) g/dL 08/11/21 Range/Units 11:24 WBC (3.8-10.6) k/uL RBC (4.30-5.90) m/uL Hgb (13.0-17.5) gm/dL Hct (39.0-53.0) % Sodium (137-145) mmol/L BUN (9-20) mg/dL Creatinine (0.66-1.25) mg/dL Glucose (74-99) mg/dL POC Glucose (mg/dL) 267 H (75-99) mg/dL Calcium (8.4-10.2) mg/dL Alkaline Phosphatase (38-126) U/L Total Protein (6.3-8.2) g/dL Albumin (3.5-5.0) g/dL Assessment and Plan Assessment: Impression: Acute hypoxic respiratory failure secondary to COVID-19 pneumonia improving from the pneumonia perspective and oxygenation hernández. History of embolic CVA with secondary altered mental status. Not to mention the patient has possibly acute COVID-19 encephalopathy Leukocytosis with low pro calcitonin level., Improving Elevated inflammatory markers second 2 COVID-19 pneumonia a month improving. Type 2 diabetes. Chronic atrial fibrillation. Presently in sinus rhythm. Dyslipidemia. Recommendation: Reviewed the results of the CT of the brain. View of the notes from neurology Continue oxygen via cannula and titrate accordingly. Continue to monitor in the ICU. For the next 24 hours. Continue Eliquis and aspirin. Continue Decadron and baricitinib, patient should finish a 14 day course. Continue GI and DVT prophylaxis. Continue COVID-19 cocktail. We will continue to follow. Time with Patient: Less than 30
[2021-08-11] MEDS ORDERED: INSULIN DETEMIR (LEVEMIR) 100 UNIT/ML SYR SQ ONE (13:00)
--- NOTE | 2021-08-11 15:34 | PN ---
PROGRESS NOTE DATE OF SERVICE: 08/11/2021 REASON FOR FOLLOWUP: COVID-19 infection. INTERVAL HISTORY: The patient is afebrile. The patient is hemodynamically stable, not on any pressor support. He is getting more awake, alert, currently down to 4 L nasal cannula. No vomiting, diarrhea or any other changes reported by the nursing staff. PHYSICAL EXAMINATION: Blood pressure 132/56, pulse of 77, temperature 98.8. He is 100% on 4 L nasal cannula. General description is an elderly male lying in bed in no distress. RESPIRATORY SYSTEM: Unlabored breathing. Diminished breath sounds. No wheeze. HEART: S1, S2. Regular rate and rhythm. ABDOMEN: Soft. No tenderness. LABS: Hemoglobin is 11.6, white count 24.4, creatinine 0.53. DIAGNOSTIC IMPRESSION AND PLAN: 1. Patient with acute respiratory failure secondary to COVID-19 pneumonia in this patient who seems to have shown some clinical improvement. Oxygen requirement has decreased. The patient is currently on Eliquis, dexamethasone, baricitinib; to continue. 2. Elevated white count, more likely steroid effect. Will monitor closely. Continue supportive care. MMODL / IJN: [id number] /
[2021-08-11 17:45] LABS: Glucose,Whole Blood 212 mg/dL (75-99)
[2021-08-11] MEDS: ATORVASTATIN 40 MG TAB PO SCH (21:01)
[2021-08-11] MEDS: INSULIN DETEMIR (LEVEMIR) 100 UNIT/ML SYR SQ SCH (21:02)
[2021-08-12 00:10] LABS: Glucose,Whole Blood 235 mg/dL (75-99)
[2021-08-12] MEDS: INSULIN ASPART (NovoLOG) 100 UNIT/ML VIAL SQ SCH ×4 (00:14→17:13)
[2021-08-12] MEDS: SODIUM CHLORIDE 0.9% 1,000 ML IV SCH ×2 (00:14→17:14)
--- NOTE | 2021-08-12 03:42 | P.PN ---
Subjective Progress Note Date: 08/11/21 Patient is a 75 -year-old pleasant male was transferred from a outside hospital for atrial fibrillation with rapid ventricular rate. Patient is presently on therapeutic dose of Lovenox. Also has highly elevated INR. His baseline creatinine is unknown but his present creatinine is around the 0.66, patient is receiving half-normal saline at 75 mL per hour patient is also on Remdesivir, presently on 15 L of oxygen, CT of the chest did not show any pulmonary embolism but did show diffuse infiltrate patient was having symptoms for about 4 days patient was unable to provide much of history to me patient is too tired and weak. Patient is not tolerating any by mouth medications at this time because of which patient was started on IV Cardizem patient usually takes metoprolol 25 twice a day. Patient doesn't have any history of congestive heart failure. Patient was started on Decadron as well. Patient has highly elevated d-dimer. 08/01/2021 Patient is seen in follow-up continues to be closely monitored in the ICU. Patient is extremely lethargic although is arousable and intermittently resp onding appropriately to questions and commands. Patient continues to have delayed response and altered mental status and CT of the brain was ordered. Neurology has been consulted and pulmonary along with urology following closely. She continues on IV heparin along with IV Cardizem. white blood count is 14.1, hemoglobin is stable at 16.1, d-dimer is above 34.10, sodium is 141 with a potassium of 4.5 and current creatinine is 0.61. LDH is 30-55 and CRP is 6.3. TSH is 0.112 and free T4 is 4.06. patient is maintained on 15 L high flow nasal cannula along with occasional intermittent nonrebreather. Patient is afebrile. 08/02/2021 Patient is seen in follow up this morning and is being closely monitored in the ICU with multiple medical consultations following including pulmonary, infectiou s disease, cardiology, and neurology. CT of the brain recommending MRI and this is ordered and pending. Patient is on 13L HF nasal cannula. Mentation slowly improving and answering questions appropriately. Patient continues to be extremely weak and fatigues easily. Cardiology planning to transition cardizem to oral and possibly starting eliquis. 08/03/2021 Patient is seen and evaluated in follow-up this morning and patient continues to improve although continues to be extremely weak and fatigued. Multiple medical consultations following an neurology recommending BARBARA although was reviewed by cardiology and no plans for BARBARA at this time as MRI along with CT confirms embolic stroke with MRI showing a few scattered areas of restricted diffusion in the inferior cerebellar hemispheres bilaterally with scattered areas of restricted diffusion present in the cerebellum, occipital lobes, as well as bilateral parietal lobes. Patient continued on subcutaneous heparin with discussion of possibly starting Eliquis in the next 2 days. Patient has been started on Brilinta an neurology is following closely. Speech has evaluated the patient and recommending continuing the patient with nothing by mouth except medications as the swallow eval was not able to be completed due to extreme fatigue and lethargy. Speech will reevaluate the patient once more alert and awake. White blood count today is 17.6 with a hemoglobin of 14.6, d-dimer is elevated at 27.78, sodium is 135 with a potassium of 3.6, BUN is 33 and creatinine is 0.59. Blood sugars are being closely monitored. Repeat x-ray and labs along with inflammatory markers in the a.m. Continuing to wean as tolerated and patient is maintained on 9 L high flow and maintaining oxygen saturations of 97%. Patient with atrial fibrillation currently rate controlled with metoprolol and cardiology is following. 08/04/2021 Patient is seen in follow-up this morning continues to be in the ICU and continues to drift often fall asleep easily although mentation has improved. Patient states the year as 1990 but also states he knows that is wrong and states he is currently in the hospital for Covid but was unaware of any recent stroke. Right side parcel post carrier strength 4/5 improving although patient is unable to completely lift extremity and left side parcel post carrier strength continues to be weak 2/5 and completely unable to lift this extremity. Multiple medical consultations including neurology, cardiology, credit card clerk along with infectious disease following closely. Patient being resumed on Eliquis and Brilinta has been discontinued. Chest x-ray today shows diffuse mild infiltrates greater on the left that can be compatible with atypical pneumonia. Awaiting repeat swallow eval today with the possibility of TPN for enteral nutrition as patient has been nothing by mouth. Patient continues on 11 L high flow and recommend to wean as tolerated. White blood count today is 27.3 with a hemoglobin of 15.6, d-dimer is 24.3, sodium is 131 with a potassium of 4.9, BUN is 26 and creatinine is 0.59. CRP is 4.3. Patient continues on baricitinib along with dexamethasone and vitamin and zinc supplements and will continue. 08/05/2021 Patient is evaluated today in the ICU, he is maintained on a BiPAP at the time of my assessment. Plan is to titrate oxygen as needed. Chest x-ray today reveals persistent left greater than right bilateral multifocal opacities. Labs are reviewed, White blood cell count 25.2. His d-dimer today is elevated at 29.09 which is slightly increased. LDH is 2286, CRP 5.8, pro calcitonin 0.07. Sodium today is 131. Vital signs include blood pressure 113/62. Respirations are 20s. Patient has remained afebrile. Swallow evaluation was conducted again today for follow-up for dysphagia intervention, that recommendations are for dysphagia 1. With honey thick liquid, supervision with basic needs. Patient n eeds one-to-one feeding with cues to swallow. Patient continues on baricitinib along with dexamethasone and vitamin and zinc supplements and will continue. Patient was evaluated by neurology today who feels as increasing right-sided weakness. Brain CT of the head initially reveals embolic ischemic insults. A repeat brain CT has been ordered to compare. We will hold off any BARBARA at this time per neurology and cardiology recommendations. 08/06/2021 Pt is alert and oriented x 3 at the time of my examination. He reports breathing better, able to take a deep breath. He is now on a 5L HF cannula with oxygen saturations in the mid 90s. BP today is 122/76, HR 88, afebrile. Labs are reviewed today, include a WBC of 24.6, sodium of 132, B of 24, Cr 0.57. Inflammatory markers continue to be elevated. Neurology has signed off today. Pt was able to lift left upper extremity off the bed however drifted and touched the bed after 2 seconds, his hand grasp was unequal with left weaker than right. A repeat brain CT was ordered for increasing upper extremity weakness. 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 There is no acute bleed. Patient continues on baricitinib, dexamethasone, zinc, and vitamins and will continue. 08/07/2021 Patient was seen and evaluated in follow-up as morning continues to be closely monitored in the ICU. Patient stating his shortness of breath mildly worsened and was on 5 L and now 7 L high flow. White blood count elevated at 25.4 and hemoglobin is stable at 14.4, sodium is 132 with a potassium of 3.9 current creatinine is 0.56. Magnesium is 2.0. Multiple medical consultations including neurology, infectious disease, and pulmonary following. Chest x-ray today shows bilateral groundglass consolidation slightly worsened in the interval. Patient is fatigued although arousable and responding appropriately. Left-sided weakness continues. Patient continues on IV dexamethasone along with vitamin and zinc supplements continued on anti-coagulant in the form of Eliquis and Baricitinib. Patient was also maintained on sliding scale along with long acting insulin although sugars have been low and actually required one amp of dextrose for a sugar less than 50 and will discontinue long-acting and continue sliding scale as needed. 08/08/2021 Patient is seen and evaluated in follow-up currently placed on BiPAP as patient oxygen saturations continued to deteriorate and patient was more lethargic. Patient continues to be in the ICU being closely monitored. BiPAP FiO2 is 40%. Patient is continued on vitamin and zinc supplements along with baricitinib, IV dexamethasone and eliquis and will continue. Pulmonary following closely. Patient continues to be lethargic with continued poor oral intake an NG tube was placed and dietitian consulted to begin tube feeds. Recommend Accu-Cheks and use sliding scale as needed. Chest x-ray this morning shows persistent left greater than right bilateral multifocal and confluent opacification his consistent with COVID-19 and no significant change from previous. 08/09/2021 Patient is seen and evaluated this morning and having a brief episode of atrial fibrillation with RVR with a heart rate of 130's -150's and cardizem was ordered although IV lasix dose was given and oral metoprolol most recently and appears to have converted back in sinus rhythm. Patient was extremely restless and attempting to take bipap mask off. Patient was extremely anxious and expressing concern of having to have a bowel movement. Multiple medical consultations following. Medications being adjusted by cardiology and increasing metoprolol dose. Patient is maintained on eliquis and Baricitinib along with steroids and vitamin supplements. Continue tube feeds for nutritional support. 08/10/2021 Patient was seen and evaluated in follow-up this morning continues to be closely monitored in the ICU with multiple medical consultations including pulmonary credit card clerk, infectious disease, and neurology has been asked to reevaluate the patient as patient continues to have intermittent periods of confusion but doesn't appear to be a change from previous. Patient is extremely lethargic and maintained on BiPAP although is arousable but continues to fatigue easily and follows sleep. Repeat CT of the brain has been ordered and pending. Patient continues on gentle IV hydration along with vitamin and zinc supplements and is maintained on oral anticoagulant along with IV dexamethasone. Patient is tolerating tube feedings via NG tube and blood sugars now mildly elevated and will continue sliding scale and Accu-Cheks before meals and at bedtime. White blood count is elevated at 24.4 and hemoglobin is 12.4, sodium remains low at 131 with a potassium of 3.9 and current creatinine is 0.59. LFTs within normal limits and pro calcitonin is 0.05. Chest x-ray this morning shows continued patchy peripheral bilateral Covid pneumonia with some slight improvement on the left. 08/11/2021 Patient is seen this morning continues to be closely monitored in the ICU. Patient was bipap dependent and recently being transitioned to high flow nasal cannula and currently on 6L HF and per nursing staff continuing to wean as tolerated. Patient was able to work with physical therapy today and continues to be extremely weak. Multiple medical consultations following. Per nursing staff, patient will continue in the ICU with possible downgrade to the selective unit in the next few days. Blood sugars have been increasing and will continue sliding scale and will add long acting. Labs: WBC 24.4, hemoglobin 11.6, sodium is 129, potassium 4.2, BUN 25, creatinine is 0.53 Review of systems: Constitutional: reports of fatigue, no reports of fever, or chills Cardiovascular: No reports of chest pain or palpitations Respiratory: reports of shortness of breath GI: No reports of nausea, vomiting, or diarrhea, continued poor oral intake, tolerating tube feeds : No reports of dysuria or retention Neurovascular: reports of generalized weakness, left greater than right All medications have been reviewed Active Medications Acetaminophen (Acetaminophen Tab 325 Mg Tab) 650 mg PO Q4HR PRN PRN Reason: Fever and/ or Pain Apixaban (Apixaban 5 Mg Tab) 5 mg PO BID [facility]; Protocol Last Admin: 08/11/21 21:02 Dose: 5 mg Documented by: Ascorbic Acid (Ascorbic Acid 500 Mg Tab) 500 mg PO DAILY [facility] Last Admin: 08/11/21 09:28 Dose: 500 mg Documented by: Atorvastatin Calcium (Atorvastatin 40 Mg Tab) 40 mg PO HS [facility] Last Admin: 08/11/21 21:01 Dose: 40 mg Documented by: Baricitinib (Baricitinib 2 Mg Tablet) 4 mg PO DAILY [facility] Stop: 08/13/21 09:01 Last Admin: 08/11/21 09:28 Dose: 4 mg Documented by: Calcium Carbonate/Glycine (Calcium Carbonate 500 Mg Chewable) 500 mg PO TID PRN PRN Reason: Heartburn Last Admin: 08/06/21 08:37 Dose: 500 mg Documented by: Cholecalciferol (Cholecalciferol 10 Mcg (400 Iu) Tablet) 10 mcg PO DAILY [facility] Last Admin: 08/11/21 09:28 Dose: 10 mcg Documented by: Dexamethasone Sodium Phosphate (Dexamethasone Sod Phosphate 10 Mg/Ml 1 Ml Vial) 6 mg IV DAILY [facility] Last Admin: 08/11/21 09:28 Dose: 6 mg Documented by: Sodium Chloride (Saline 0.9%) 1,000 mls @ 75 mls/hr IV .[id number] [facility] Last Admin: 08/12/21 00:14 Dose: 75 mls/hr Documented by: Insulin Aspart (Insulin Aspart (Novolog) 100 Unit/Ml Vial) 0 unit SQ Q6HR [facility]; Protocol Last Admin: 08/12/21 00:14 Dose: 3 unit Documented by: Insulin Detemir (Insulin Detemir (Levemir) 100 Unit/Ml Syr) 15 unit SQ HS [facility] Last Admin: 08/11/21 21:02 Dose: 15 unit Documented by: Metoprolol Tartrate (Metoprolol Tartrate 50 Mg Tab) 100 mg PO BID [facility] Last Admin: 08/11/21 21:02 Dose: 100 mg Documented by: Miscellaneous Information (Potassium Replacement Protocol 1 Each Misc) 1 each MISCELLANE DAILY PRN; Protocol PRN Reason: Per Protocol Miscellaneous Information (Magnesium Replacement Protocol 1 Each Misc) 1 each MISCELLANE DAILY PRN; Protocol PRN Reason: Per Protocol Pantoprazole Sodium (Pantoprazole 40 Mg/10 Ml Vial) 40 mg IVP BID [facility] Last Admin: 08/11/21 21:01 Dose: 40 mg Documented by: Sodium Chloride (Sodium Chloride 0.9% Flush 10 Ml Syringe) 10 ml IV Q4HR PRN PRN Reason: PICC Line Sodium Chloride (Sodium Chloride 0.9% Flush 10 Ml Syringe) 10 ml IV WEEKLY [facility] Last Admin: 08/09/21 09:44 Dose: 10 ml Documented by: Sodium Chloride (Sodium Chloride 0.9% Flush 10 Ml Syringe) 20 ml IV Q4HR PRN PRN Reason: PICC Line Zinc Sulfate (Zinc Sulfate 220 Mg Cap) 220 mg PO DAILY [facility] Last Admin: 08/11/21 09:28 Dose: 220 mg Documented by: PHYSICAL EXAMINATION: GENERAL: The patient is alert and oriented x2-3 more awake today. Thin built. Continues on NC after recent transition from BIPAP. Temp is 98.6, pulse is 65, resp are 15, blood pressure is 152/65, and 02 is 100% on 6L HF via DE HEENT: Pupils are round and equally reacting to light. EOMI. No scleral icterus. No conjunctival pallor. Normocephalic, atraumatic. No pharyngeal erythema. No thyromegaly. NG tube noted CARDIOVASCULAR: S1 and S2 muffled. PULMONARY: Diffuse bilateral coarse rhonchi noted with diminished breath sounds at the bases ABDOMEN: Soft, nontender, nondistended, normoactive bowel sounds. No palpable organomegaly. MUSCULOSKELETAL: No joint swelling or deformity. EXTREMITIES: No cyanosis, clubbing, or pedal edema. NEUROLOGICAL: Left parcel post carrier strength 4/5, right parcel post carrier strength 4/5. Diffusely weak, improvement in upper extremity strength although weakness remains present SKIN: No rashes. 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 Continue with weaning 02 as tolerated. Continued on Baricitinib, eliquis, IV dexamethasone, vitamin and zinc supplements. Recently taken off bipap early this am and transitioned to high flow NC. Chest x-ray shows bilateral airspace disease with stable left subcutaneous emphysema noted. and will repeat chest x-ray along with labs in the a.m. Blood sugars have become more elevated and will continue on Accu-Cheks and sliding scale and start long acting insulin as well. 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 Neurology for evaluation. Discussion of possible transfer from the ICU if respiratory status improved. Due to multiple complex medical issues, Prognosis is extremely guarded. Objective - Vital Signs Vital signs: Vital Signs Temp 97.8 F 08/11/21 04:00 Pulse 73 08/11/21 07:00 Resp 22 08/11/21 07:00 BP 144/64 08/11/21 07:00 Pulse Ox 100 08/11/21 07:00 Intake & Output 08/10/21 08/11/21 08/11/21 18:59 06:59 18:59 Intake Total 1203 1542 132 Output Total 1151 1680 225 Balance 52 -138 -93 Weight 62 kg Intake: IV 975 825 75 Sodium Chloride 0.9% 1, 975 825 75 000 ml @ 75 mls/hr IV . [id number] [facility] Rx#:[id number] Tube Feeding 228 627 57 Other 90 Output: Urine 1151 1680 225 Other: Voiding Method Indwelling Catheter Indwelling Catheter - Labs CBC & Chem 7: 08/11/21 07:19 08/11/21 07:19 Labs: Abnormal Lab Results - Last 24 Hours (Table) 08/10/21 08/10/21 08/10/21 Range/Units 12:21 18:03 23:58 WBC (3.8-10.6) k/uL RBC (4.30-5.90) m/uL Hgb (13.0-17.5) gm/dL Hct (39.0-53.0) % POC Glucose (mg/dL) 141 H 196 H 219 H (75-99) mg/dL 08/11/21 08/11/21 08/11/21 Range/Units 06:08 06:10 07:19 WBC 24.4 H (3.8-10.6) k/uL RBC 4.06 L (4.30-5.90) m/uL Hgb 11.6 L (13.0-17.5) gm/dL Hct 35.7 L (39.0-53.0) % POC Glucose (mg/dL) 313 H 303 H (75-99) mg/dL
[2021-08-12 06:18] LABS: Glucose,Whole Blood 199 mg/dL (75-99)
[2021-08-12 07:26] LABS: Basophils % (A) 0 %; Eosinophils # (A) 0.3 k/uL (0-0.7); Eosinophils % (A) 1 %; HCT 35.5 % (39.0-53.0); HGB 11.5 gm/dL (13.0-17.5); Lymphocytes # (A) 0.8 k/uL (1.0-4.8); Lymphocytes % (A) 3 %; MCH 28.5 pg (25.0-35.0); MCHC 32.4 g/dL (31.0-37.0); Mean Platelet Volume 8.6; Monocytes # (A) 0.5 k/uL (0-1.0); Monocytes % (A) 2 %; Neutrophils # (A) 20.9 k/uL (1.3-7.7); Neutrophils % (A) 93 %; Platelet Count 165 k/uL (150-450); RBC 4.03 m/uL (4.30-5.90); RDW 14.4 % (11.5-15.5); WBC 22.5 k/uL (3.8-10.6)
--- NOTE | 2021-08-12 07:31 | XR ---
EXAMINATION TYPE: XR chest 1V portable DATE OF EXAM: 08/12/2021 COMPARISON: Chest x-ray 08/11/2021 HISTORY: Covid pneumonia TECHNIQUE: Single frontal view of the chest is obtained. FINDINGS: Bilateral groundglass opacity again noted within the lungs. Postop change noted the cervic al spine. NG tube is overlying appropriate position. There are overlying artifacts. No evident pneumo thorax or pleural effusion. Cardiac mediastinal silhouette is stable accounting for differences in ro tation. There is a left-sided PICC line, distal tip is within the right atrium. IMPRESSION: Findings are consistent with pneumonia, Covid infection
[2021-08-12 07:46] LABS: ALT 42 U/L (4-49); AST 46 U/L (17-59); African American GFR (CKD) >90 (>60 ml/min/1.73 sqM); Albumin 2.2 g/dL (3.5-5.0); Alkaline Phosphatase 182 U/L (38-126); Anion Gap 5 mmol/L; Blood Urea Nitrogen 22 mg/dL (9-20); Calcium 7.9 mg/dL (8.4-10.2); Carbon Dioxide 27 mmol/L (22-30); Chloride 99 mmol/L (98-107); Glucose 172 mg/dL (74-99); Non-African American GFR(CKD) >90 (>60 ml/min/1.73 sqM); Potassium 3.7 mmol/L (3.5-5.1); Sodium 131 mmol/L (137-145); Total Bilirubin 0.6 mg/dL (0.2-1.3); Total Protein 4.8 g/dL (6.3-8.2)
[2021-08-12] MEDS: CHOLECALCIFEROL 10 MCG (400 IU) TABLET PO SCH (09:24)
[2021-08-12] MEDS: METOPROLOL TARTRATE 50 MG TAB PO SCH ×2 (09:24→20:24)
[2021-08-12] MEDS: PANTOPRAZOLE 40 MG/10 ML VIAL IVP SCH ×2 (09:24→20:23)
[2021-08-12] MEDS: ZINC SULFATE 220 MG CAP PO SCH (09:24)
[2021-08-12] MEDS: DEXAMETHASONE SOD PHOSPHATE 10 MG/ML 1 ML VIAL IV SCH (09:24)
[2021-08-12] MEDS: BARICITINIB 2 MG TABLET PO SCH (09:24)
[2021-08-12] MEDS: APIXABAN 5 MG TAB PO SCH ×2 (09:24→20:23)
[2021-08-12] MEDS: ASCORBIC ACID 500 MG TAB PO SCH (09:25)
[2021-08-12 11:42] LABS: Glucose,Whole Blood 162 mg/dL (75-99)
--- NOTE | 2021-08-12 12:55 | P.PN ---
Subjective Progress Note Date: 08/12/21 Principal diagnosis: Acute hypoxic respiratory failure secondary to COVID-19 pneumonia 08/06/2021, seeing this patient for a follow-up. The patient remains in intensive care unit for COVID-19 related pneumonia and secondary respiratory failure. He was having more difficulties in breathing yesterday. At one point, he came as high as 15 L of oxygen by nasal cannula. Currently is down to 9 L. He is on Decadron 6 mg IV every 24 hours and he remains on Baricitinib. Chest x-ray still showing diffuse but the pulmonary infiltrates consistent with COVID- 19 related pneumonia. In terms of inflammatory markers, d-dimer still elevated at 26 and LDH level is at 2152 with a CRP level of 5.6. He is afebrile. He is hemodynamically stable. Is producing adequate amount of urine output. He remains on anticoagulation with Eliquis at a dose of 5 mg by mouth twice a day. Rest of the blood work essentially stable. His creatinine is at 0.5 with a BUN of 24. White cell count is 24. Adequate urine output. He remains on normal saline at the rate of 75 mL an hour. Cardiac rhythm is still in atrial fibrillation. Rate is controlled for now. He did have a bout of heartburn this morning and he was given Tums and he improved. He is taking applesauce and he is advancing his diet as tolerated. No agitation. No restlessness. Mental status is improved considerably. His communicating. He is alert. 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 The repeat CAT scan of the brain was done yesterday and showed cerebral atrophy without any new changes. 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 No evidence of any acute bleeding. His bicarb deficit has also been corrected. Patient was reevaluated today on 08/07/2021, patient is now in the ICU, he is marginal at best, he was on 7 L nasal cannula high flow, however he seems to be doing worse today, and I have recommended that he goes on BiPAP. Patient was placed on BiPAP at 14/6, and his repeat ABG showed a pO2 of 86 pCO2 of 32 pH of 7.46, hence and keeping the patient on BiPAP for now. She count today is 25.4 hemoglobin 14.4 electrodes are normal. Renal Profile is normal. Chest x-ray continues to show bilateral groundglass consolidation in the periphery of the lungs, slightly worse compared to his baseline. And he has a PICC line is noted . Reevaluated today on 08/08/2021, patient remains in the ICU, on BiPAP with IPAP 14 EPAP of 7 FiO2 is 50%, cut it down to 45%, patient is on IV fluid at 75 mL per hour patient seems to be BiPAP dependent and today and planning to place a nasogastric tube and suddenly start enteral feeding on this patient. He is in A. fib rate of 88, O2 saturation is in the mid 90s. Patient seems to be quite lethargic, but arousable, follows simple instructions, seems to be generally weak and exhausted. He is definitely not in respiratory distress. Seems to be doing well on BiPAP. Respiratory see count today is 19.4, d-dimer is significantly elevated. Electrolytes are normal renal profile is normal. LDH seems to be trending down a bit down to 1881. From 3255 few days ago. Medications-hernández patient is on Eliquis at 5 mg twice a day vitamin C, Lipitor,baricitinib, atorvastatin, Tums, vitamin D, Decadron 6 mg IV daily, Toprol 50 mg 3 times a day, Protonix, and zinc. Patient will be started on ent eral feeding today. Once a nasogastric tube has been placed. Reevaluated today on 08/09/2021, patient remains in the ICU, remains on BiPAP with IPAP of 14 EPAP of 7 however his FiO2 is down to 30%. Patient is in atrial fibrillation with RVR, hence I will bolus the patient with Cardizem and placed on a Cardizem drip at 5 mg per hour. Patient remained generally weak, he is arousable, seems to be quite lethargic, but arousable and follows simple instructions. Noted that the patient had significant weight gain since admission, hence the dose of Lasix was ordered 40 mg IV push 1, patient remains on IV fluid at 75 mL/h, he is now receiving enteral feeding via nasogastric tube which was placed yesterday. Not yet up to goal. D-dimer remains elevated at 24, however the patient is on Eliquis. Patient is hemodynamically stable, Chest x-ray continues to show by lateral infiltrates, however the left side seems to be more affected than right side. She count today 16.6 hemoglobin is 12.3 d-dimer is 24.4 electrodes are normal renal profile is normal. Patient was reevaluated today on 08/10/2021, remains in the ICU, remains on BiPAP, he is on IPAP of 14 EPAP of 7 FiO2 of 30 0%, remains on IV fluid/0.9 normal saline at 75 mL/h. Remains on enteral feeding using vital AF at 57 mL per hour. Patient remains lethargic, however arousable, and the patient is clearly encephalopathic. Hence we'll recommend a CT of the head today, and would like to have some further input from neurology after the CT of the head on this patient. I believe his encephalopathy is related to his recent CVA and also related to COVID-19 encephalopathy. Pulmonary-hernández, the patient is not requiring much in the terms of FiO2, but he is requiring mostly a positive pressure ventilation mostly because he generally weak. 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 CBC is showing good of leukocytosis hence I recommended a pro-calcitonin level, and if elevated may empirically start the patient on antibiotics and discontinue his baricitinib. Few days ago, his pro-calcitonin was 0.07. Thyroid profile was normal. D-dimer remains elevated at 24.44, improving. Asked x-ray is showing slight interval improvement nonetheless the patient continues to have patchy peripheral bilateral infiltrates Patient was reevaluated today on 08/11/2021, patient remains in the ICU, he was transitioned today from BiPAP to liters nasal cannula, and his O2 saturation is 100%. His mental status is significantly improved today, patient seems to be more awake, more appropriate, his affect is significantly improved, patient is able to answer questions, however he does not know the name of the president. Patient will use a year, knew where he was, and I was able to titrate his FiO2 down to 4 L and maintained his O2 saturation in the 90s. Patient was seen by neurology yesterday, and he was noted to be generally weak. CT of the head showed basically no change in his previous CVA findings. Patient remains on Eliquis. Remains on occupational and physical therapy, and I would seriously consider transferring the patient to the floor in the next 24 hours. May eventually need outpatient rehabilitation. WBC count today is 24.4, not different from yesterday. Sodium is 129 and electrolytes are normal otherwise. Renal profile is normal. Reevaluated today on 08/12/2021, patient remains in the ICU, remains on nasal cannula, he is now on 5 L nasal cannula, seems to be comfortable and not in distress. Mentation however seems to be a bit worse today compared to yesterday, a bit slower. Lethargic, follows simple instructions but generally weak. And slow to respond. Chest x-ray showed bilateral infiltrates left more so than right, broken story level is normal, WBC count is improving down to 22.5 hemoglobin is 11.5. Electrolytes are normal except for a bit of low sodium 131 renal profile is normal Objective - Vital Signs Vital signs: Vital Signs Temp 98.2 F 08/12/21 08:00 Pulse 65 08/12/21 11:00 Resp 21 08/12/21 11:00 BP 120/58 08/12/21 11:00 Pulse Ox 96 08/12/21 11:00 Intake & Output 08/11/21 08/12/21 08/12/21 18:59 06:59 18:59 Intake Total 1071 1731 690 Output Total 1886 1415 310 Balance -815 316 380 Weight 62 kg 60.6 kg Intake: IV 900 900 375 Sodium Chloride 0.9% 1, 900 900 375 000 ml @ 75 mls/hr IV . [id number] [facility] Rx#:[id number] Tube Feeding 171 741 285 Other 90 30 Output: Urine 1886 1415 310 Other: Voiding Method Indwelling Catheter Indwelling Catheter Indwelling Catheter # Bowel Movements 1 - Exam Revealed 75-year-old white male comfortable on 5 L nasal cannula, remains lethargic and bit more lethargic today compared to yesterday. But arousable and follows very simple instructions. Head atraumatic, normocephalic. HEENT: PERRLA, EOMI, anicteric, no neck masses, no JVD.. CARDIOVASCULAR: Irregular irregular rhythm, no S3 gallop. PULMONARY: Symmetrical chest expansion crackles at the bases bilaterally. ABDOMEN: nontender no megaly no rebound. MUSCULOSKELETAL: No deformities noted limitation in range of motion.. EXTREMITIES: No cyanosis, clubbing, or pedal edema. NEUROLOGICAL: A bit more lethargic again today, slow, otherwise no gross deficits. SKIN: No rashes. - Labs CBC & Chem 7: 08/12/21 06:57 08/12/21 06:57 Labs: Abnormal Lab Results - Last 24 Hours (Table) 08/11/21 08/12/21 08/12/21 Range/Units 17:44 00:08 06:16 WBC (3.8-10.6) k/uL RBC (4.30-5.90) m/uL Hgb (13.0-17.5) gm/dL Hct (39.0-53.0) % Neutrophils # (1.3-7.7) k/uL Lymphocytes # (1.0-4.8) k/uL Sodium (137-145) mmol/L BUN (9-20) mg/dL Creatinine (0.66-1.25) mg/dL Glucose (74-99) mg/dL POC Glucose (mg/dL) 212 H 235 H 199 H (75-99) mg/dL Calcium (8.4-10.2) mg/dL Alkaline Phosphatase (38-126) U/L Total Protein (6.3-8.2) g/dL Albumin (3.5-5.0) g/dL 08/12/21 08/12/21 08/12/21 Range/Units 06:57 06:57 11:40 WBC 22.5 H (3.8-10.6) k/uL RBC 4.03 L (4.30-5.90) m/uL Hgb 11.5 L (13.0-17.5) gm/dL Hct 35.5 L (39.0-53.0) % Neutrophils # 20.9 H (1.3-7.7) k/uL Lymphocytes # 0.8 L (1.0-4.8) k/uL Sodium 131 L (137-145) mmol/L BUN 22 H (9-20) mg/dL Creatinine 0.65 L (0.66-1.25) mg/dL Glucose 172 H (74-99) mg/dL POC Glucose (mg/dL) 162 H (75-99) mg/dL Calcium 7.9 L (8.4-10.2) mg/dL Alkaline Phosphatase 182 H (38-126) U/L Total Protein 4.8 L (6.3-8.2) g/dL Albumin 2.2 L (3.5-5.0) g/dL Assessment and Plan Assessment: Impression: Acute hypoxic respiratory failure secondary to COVID-19 pneumonia improving from the pneumonia perspective and oxygenation hernández. History of embolic CVA with secondary altered mental status. Not to mention the patient has possibly acute COVID-19 encephalopathy Leukocytosis with low pro calcitonin level., Improving Elevated inflammatory markers second 2 COVID-19 pneumonia a month improving. Type 2 diabetes. Chronic atrial fibrillation. Presently in sinus rhythm. Dyslipidemia. Recommendation: Will transfer patient out of the ICU to a regular medical floor Continue oxygen and titrate accordingly May eventually need placement/rehab placement Continue Eliquis and aspirin. Continue Decadron and baricitinib, patient should finish a 14 day course. Patient is on dose #12 of 14. Continue GI and DVT prophylaxis. Continue COVID-19 cocktail. We will continue to follow. Time with Patient: Less than 30
--- NOTE | 2021-08-12 13:34 | P.PN ---
Subjective Progress Note Date: 08/12/21 Progress Note Date: 08/11/21 Patient is a 75 -year-old pleasant male was transferred from a outside hospital for atrial fibrillation with rapid ventricular rate. Patient is presently on therapeutic dose of Lovenox. Also has highly elevated INR. His baseline creatinine is unknown but his present creatinine is around the 0.66, patient is receiving half-normal saline at 75 mL per hour patient is also on Remdesivir, presently on 15 L of oxygen, CT of the chest did not show any pulmonary embolism but did show diffuse infiltrate patient was having symptoms for about 4 days patient was unable to provide much of history to me patient is too tired and weak. Patient is not tolerating any by mouth medications at this time because of which patient was started on IV Cardizem patient usually takes metoprolol 25 twice a day. Patient doesn't have any history of congestive heart failure. Patient was started on Decadron as well. Patient has highly elevated d-dimer. 08/01/2021 Patient is seen in follow-up continues to be closely monitored in the ICU. Patient is extremely lethargic although is arousable and intermittently responding appropriately to questions and commands. Patient continues to have delayed response and altered mental status and CT of the brain was ordered. Neurology has been consulted and pulmonary along with urology following closely. She continues on IV heparin along with IV Cardizem. white blood count is 14.1, hemoglobin is stable at 16.1, d-dimer is above 34.10, sodium is 141 with a potassium of 4.5 and current creatinine is 0.61. LDH is 30-55 and CRP is 6.3. TSH is 0.112 and free T4 is 4.06. patient is maintained on 15 L high flow nasal cannula along with occasional intermittent nonrebreather. Patient is afebrile. 08/02/2021 Patient is seen in follow up this morning and is being closely monitored in the ICU with multiple medical consultations following including pulmonary, infectious disease, cardiology, and neurology. CT of the brain recommending MRI and this is ordered and pending. Patient is on 13L HF nasal cannula. Mentation slowly improving and answering questions appropriately. Patient continues to be extremely weak and fatigues easily. Cardiology planning to transition cardizem to oral and possibly starting eliquis. 08/03/2021 Patient is seen and evaluated in follow-up this morning and patient continues to improve although continues to be extremely weak and fatigued. Multiple medical consultations following an neurology recommending BARBARA although was reviewed by cardiology and no plans for BARBARA at this time as MRI along with CT confirms embolic stroke with MRI showing a few scattered areas of restricted diffusion in the inferior cerebellar hemispheres bilaterally with scattered areas of restricted diffusion present in the cerebellum, occipital lobes, as well as bilateral parietal lobes. Patient continued on subcutaneous heparin with discussion of possibly starting Eliquis in the next 2 days. Patient has been started on Brilinta an neurology is following closely. Speech has evaluated the patient and recommending continuing the patient with nothing by mouth except medications as the swallow eval was not able to be completed due to extreme fatigue and lethargy. Speech will reevaluate the patient once more alert and awake. White blood count today is 17.6 with a hemoglobin of 14.6, d-dimer is elevated at 27.78, sodium is 135 with a potassium of 3.6, BUN is 33 and creatinine is 0.59. Blood sugars are being closely monitored. Repeat x-ray and labs along with inflammatory markers in the a.m. Continuing to wean as tolerated and patient is maintained on 9 L high flow and maintaining oxygen saturations of 97%. Patient with atrial fibrillation currently rate controlled with metoprolol and cardiology is following. 08/04/2021 Patient is seen in follow-up this morning continues to be in the ICU and continues to drift often fall asleep easily although mentation has improved. Patient states the year as 1990 but also states he knows that is wrong and states he is currently in the hospital for Covid but was unaware of any recent stroke. Right side lighting fixtures decorator strength 4/5 improving although patient is unable to completely lift extremity and left side lighting fixtures decorator strength continues to be weak 2/5 and completely unable to lift this extremity. Multiple medical consultations including neurology, cardiology, research quality assurance specialist along with infectious disease following closely. Patient being resumed on Eliquis and Brilinta has been discontinued. Chest x-ray today shows diffuse mild infiltrates greater on the left that can be compatible with atypical pneumonia. Awaiting repeat swallow eval today with the possibility of TPN for enteral nutrition as patient has been nothing by mouth. Patient continues on 11 L high flow and recommend to wean as tolerated. White blood count today is 27.3 with a hemoglobin of 15.6, d-dimer is 24.3, sodium is 131 with a potassium of 4.9, BUN is 26 and creatinine is 0.59. CRP is 4.3. Patient continues on baricitinib along with dexamethasone and vitamin and zinc supplements and will continue. 08/05/2021 Patient is evaluated today in the ICU, he is maintained on a BiPAP at the time of my assessment. Plan is to titrate oxygen as needed. Chest x-ray today reveals persistent left greater than right bilateral multifocal opacities. Labs are reviewed, White blood cell count 25.2. His d-dimer today is elevated at 29.09 which is slightly increased. LDH is 2286, CRP 5.8, pro calcitonin 0.07. Sodium today is 131. Vital signs include blood pressure 113/62. Respirations are 20s. Patient has remained afebrile. Swallow evaluation was conducted again today for follow-up for dysphagia intervention, that recommendations are for dysphagia 1. With honey thick liquid, supervision with basic needs. Patient needs one-to-one feeding with cues to swallow. Patient continues on baricitinib along with dexamethasone and vitamin and zinc supplements and will continue. Patient was evaluated by neurology today who feels as increasing right-sided weakness. Brain CT of the head initially reveals embolic ischemic insults. A repeat brain CT has been ordered to compare. We will hold off any BARBARA at this time per neurology and cardiology recommendations. 08/06/2021 Pt is alert and oriented x 3 at the time of my examination. He reports breathing better, able to take a deep breath. He is now on a 5L HF cannula with oxygen saturations in the mid 90s. BP today is 122/76, HR 88, afebrile. Labs are reviewed today, include a WBC of 24.6, sodium of 132, B of 24, Cr 0.57. Inflammatory markers continue to be elevated. Neurology has signed off today. Pt was able to lift left upper extremity off the bed however drifted and touched the bed after 2 seconds, his hand grasp was unequal with left weaker than right. A repeat brain CT was ordered for increasing upper extremity weakness. 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 There is no acute bleed. Patient continues on baricitinib, dexamethasone, zinc, and vitamins and will continue. 08/07/2021 Patient was seen and evaluated in follow-up as morning continues to be closely monitored in the ICU. Patient stating his shortness of breath mildly worsened and was on 5 L and now 7 L high flow. White blood count elevated at 25.4 and hemoglobin is stable at 14.4, sodium is 132 with a potassium of 3.9 current creatinine is 0.56. Magnesium is 2.0. Multiple medical consultations including neurology, infectious disease, and pulmonary following. Chest x-ray today shows bilateral groundglass consolidation slightly worsened in the interval. Patient is fatigued although arousable and responding appropriately. Left-sided weakness continues. Patient continues on IV dexamethasone along with vitamin and zinc supplements continued on anti-coagulant in the form of Eliquis and Baricitinib. Patient was also maintained on sliding scale along with long acting insulin although sugars have been low and actually required one amp of dextrose for a sugar less than 50 and will discontinue long-acting and continue sliding scale as needed. 08/08/2021 Patient is seen and evaluated in follow-up currently placed on BiPAP as patient oxygen saturations continued to deteriorate and patient was more lethargic. Patient continues to be in the ICU being closely monitored. BiPAP FiO2 is 40%. Patient is continued on vitamin and zinc supplements along with baricitinib, IV dexamethasone and eliquis and will continue. Pulmonary following closely. Patient continues to be lethargic with continued poor oral intake an NG tube was placed and dietitian consulted to begin tube feeds. Recommend Accu-Cheks and use sliding scale as needed. Chest x-ray this morning shows persistent left greater than right bilateral multifocal and confluent opacification his consistent with COVID-19 and no significant change from previous. 08/09/2021 Patient is seen and evaluated this morning and having a brief episode of atrial fibrillation with RVR with a heart rate of 130's -150's and cardizem was ordered although IV lasix dose was given and oral metoprolol most recently and appears to have converted back in sinus rhythm. Patient was extremely restless and attempting to take bipap mask off. Patient was extremely anxious and expressing concern of having to have a bowel movement. Multiple medical consultations following. Medications being adjusted by cardiology and increasing metoprolol dose. Patient is maintained on eliquis and Baricitinib along with steroids and vitamin supplements. Continue tube feeds for nutritional support. 08/10/2021 Patient was seen and evaluated in follow-up this morning continues to be closely monitored in the ICU with multiple medical consultations including pulmonary research quality assurance specialist, infectious disease, and neurology has been asked to reevaluate the patient as patient continues to have intermittent periods of confusion but doesn't appear to be a change from previous. Patient is extremely lethargic and maintained on BiPAP although is arousable but continues to fatigue easily and follows sleep. Repeat CT of the brain has been ordered and pending. Patient continues on gentle IV hydration along with vitamin and zinc supplements and is maintained on oral anticoagulant along with IV dexamethasone. Patient is tolerating tube feedings via NG tube and blood sugars now mildly elevated and will continue sliding scale and Accu-Cheks before meals and at bedtime. White blood count is elevated at 24.4 and hemoglobin is 12.4, sodium remains low at 131 with a potassium of 3.9 and current creatinine is 0.59. LFTs within normal limits and pro calcitonin is 0.05. Chest x-ray this morning shows continued patchy peripheral bilateral Covid pneumonia with some slight improvement on the left. 08/11/2021 Patient is seen this morning continues to be closely monitored in the ICU. Patient was bipap dependent and recently being transitioned to high flow nasal cannula and currently on 6L HF and per nursing staff continuing to wean as tolerated. Patient was able to work with physical therapy today and continues to be extremely weak. Multiple medical consultations following. Per nursing staff, patient will continue in the ICU with possible downgrade to the selective unit in the next few days. Blood sugars have been increasing and will continue sliding scale and will add long acting. 08/12/2021 Patient seen in the ICU, he is an overflow patient. O2 requirements down to 5 L nasal cannula today, he is alert but confused. Sodium level coming up to 131, he continues on Decadron, blood sugars 162 this afternoon. Chest x-ray repeated today showing bilateral groundglass opacities, no pneumothorax or pleural effusion. Continues in Nico feedings, NG tube in place. No fevers, hemodynamically stable Labs: WBC 22.5, hemoglobin 11.5, sodium is 131 potassium 3.7 BUN 25, creatinine is 0.65 Review of systems: Constitutional: No reports of fatigue, no reports of fever, or chills Cardiovascular: No reports of chest pain or palpitations Respiratory: reports of shortness of breath GI: No reports of nausea, vomiting, or diarrhea, continued poor oral intake, tolerating tube feeds : No reports of dysuria or retention Neurovascular: reports of generalized weakness, left greater than right All medications have been reviewed Active Medications Acetaminophen (Acetaminophen Tab 325 Mg Tab) 650 mg PO Q4HR PRN PRN Reason: Fever and/ or Pain Apixaban (Apixaban 5 Mg Tab) 5 mg PO BID FOR[facility]LY [facility], [facility]; Protocol Last Admin: 08/11/21 21:02 Dose: 5 mg Documented by: Ascorbic Acid (Ascorbic Acid 500 Mg Tab) 500 mg PO DAILY FOR[facility]LY [facility], [facility]1983 Last Admin: 08/11/21 09:28 Dose: 500 mg Documented by: Atorvastatin Calcium (Atorvastatin 40 Mg Tab) 40 mg PO HS FOR[facility]LY [facility], [facility]–1983 Last Admin: 08/11/21 21:01 Dose: 40 mg Documented by: Baricitinib (Baricitinib 2 Mg Tablet) 4 mg PO DAILY [facility], [facility]1983 Stop: 08/13/21 09:01 Last Admin: 08/11/21 09:28 Dose: 4 mg Documented by: Calcium Carbonate/Glycine (Calcium Carbonate 500 Mg Chewable) 500 mg PO TID PRN PRN Reason: Heartburn Last Admin: 08/06/21 08:37 Dose: 500 mg Documented by: Cholecalciferol (Cholecalciferol 10 Mcg (400 Iu) Tablet) 10 mcg PO DAILY [facility], [facility]1983 Last Admin: 08/11/21 09:28 Dose: 10 mcg Documented by: Dexamethasone Sodium Phosphate (Dexamethasone Sod Phosphate 10 Mg/Ml 1 Ml Vial) 6 mg IV DAILY [facility], [facility] Last Admin: 08/11/21 09:28 Dose: 6 mg Documented by: Sodium Chloride (Saline 0.9%) 1,000 mls @ 75 mls/hr IV .[id number] FOR[facility], [facility] Last Admin: 08/12/21 00:14 Dose: 75 mls/hr Documented by: Insulin Aspart (Insulin Aspart (Novolog) 100 Unit/Ml Vial) 0 unit SQ Q6HR [facility], [facility]; Protocol Last Admin: 08/12/21 00:14 Dose: 3 unit Documented by: Insulin Detemir (Insulin Detemir (Levemir) 100 Unit/Ml Syr) 15 unit SQ HS [facility], [facility] Last Admin: 08/11/21 21:02 Dose: 15 unit Documented by: Metoprolol Tartrate (Metoprolol Tartrate 50 Mg Tab) 100 mg PO BID [facility], [facility] Last Admin: 08/11/21 21:02 Dose: 100 mg Documented by: Miscellaneous Information (Potassium Replacement Protocol 1 Each Misc) 1 each MISCELLANE DAILY PRN; Protocol PRN Reason: Per Protocol Miscellaneous Information (Magnesium Replacement Protocol 1 Each [facility] [place]) 1 each MISCELLANE DAILY PRN; Protocol PRN Reason: Per Protocol Pantoprazole Sodium (Pantoprazole 40 Mg/10 Ml Vial) 40 mg IVP BID [facility], [facility] Last Admin: 08/11/21 21:01 Dose: 40 mg Documented by: Sodium Chloride (Sodium Chloride 0.9% Flush 10 Ml Syringe) 10 ml IV Q4HR PRN PRN Reason: PICC Line Sodium Chloride (Sodium Chloride 0.9% Flush 10 Ml Syringe) 10 ml IV WEEKLY [facility], [facility] Last Admin: 08/09/21 09:44 Dose: 10 ml Documented by: Sodium Chloride (Sodium Chloride 0.9% Flush 10 Ml Syringe) 20 ml IV Q4HR PRN PRN Reason: PICC Line Zinc Sulfate (Zinc Sulfate 220 Mg Cap) 220 mg PO DAILY [facility], [facility] Last Admin: 08/11/21 09:28 Dose: 220 mg Documented by: PHYSICAL EXAMINATION: GENERAL: The patient is alert and oriented x2-3 more awake today. Thin built. Continues on NC after recent transition from BIPAP. Temp is 98.6, pulse is 65, resp are 15, blood pressure is 152/65, and 02 is 100% on 6L HF via NC HEENT: Pupils are round and equally reacting to light. EOMI. No scleral icterus. No conjunctival pallor. Normocephalic, atraumatic. No pharyngeal erythema. No thyromegaly. NG tube noted CARDIOVASCULAR: S1 and S2 muffled. PULMONARY: Diffuse bilateral coarse rhonchi noted with diminished breath sounds at the bases ABDOMEN: Soft, nontender, nondistended, normoactive bowel sounds. No palpable organomegaly. MUSCULOSKELETAL: No joint swelling or deformity. EXTREMITIES: No cyanosis, clubbing, or pedal edema. NEUROLOGICAL: Left lighting fixtures decorator strength 4/5, right lighting fixtures decorator strength 4/5. Diffusely weak, improvement in upper extremity strength although weakness remains present SKIN: No rashes. 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 O2 is being weaned, and on 5 L nasal cannula today Continued on Baricitinib, eliquis, IV dexamethasone, vitamin and zinc supplements. . Chest x-ray shows bilateral infiltrates with stable left subcutaneous emphysema noted. and will repeat chest x-ray along with labs in the a.m. 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 Neurology for evaluation. Currently in the ICU as an overflow. Due to multiple complex medical issues, Prognosis is extremely guarded. Objective - Vital Signs Vital signs: Vital Signs Temp 98.2 F 08/12/21 08:00 Pulse 65 08/12/21 11:00 Resp 21 08/12/21 11:00 BP 120/58 08/12/21 11:00 Pulse Ox 96 08/12/21 11:00 Intake & Output 08/11/21 08/12/21 08/12/21 18:59 06:59 18:59 Intake Total 1071 1731 690 Output Total 1886 1415 310 Balance -815 316 380 Weight 62 kg 60.6 kg Intake: IV 900 900 375 Sodium Chloride 0.9% 1, 900 900 375 000 ml @ 75 mls/hr IV . [id number] [facility], [facility] Rx#:[id number] Tube Feeding 171 741 285 Other 90 30 Output: Urine 1886 1415 310 Other: Voiding Method Indwelling Catheter Indwelling Catheter Indwelling Catheter # Bowel Movements 1 - Labs CBC & Chem 7: 08/12/21 06:57 08/12/21 06:57 Labs: Abnormal Lab Results - Last 24 Hours (Table) 08/11/21 08/12/21 08/12/21 Range/Units 17:44 00:08 06:16 WBC (3.8-10.6) k/uL RBC (4.30-5.90) m/uL Hgb (13.0-17.5) gm/dL Hct (39.0-53.0) % Neutrophils # (1.3-7.7) k/uL Lymphocytes # (1.0-4.8) k/uL Sodium (137-145) mmol/L BUN (9-20) mg/dL Creatinine (0.66-1.25) mg/dL Glucose (74-99) mg/dL POC Glucose (mg/dL) 212 H 235 H 199 H (75-99) mg/dL Calcium (8.4-10.2) mg/dL Alkaline Phosphatase (38-126) U/L Total Protein (6.3-8.2) g/dL Albumin (3.5-5.0) g/dL 08/12/21 08/12/21 08/12/21 Range/Units 06:57 06:57 11:40 WBC 22.5 H (3.8-10.6) k/uL RBC 4.03 L (4.30-5.90) m/uL Hgb 11.5 L (13.0-17.5) gm/dL Hct 35.5 L (39.0-53.0) % Neutrophils # 20.9 H (1.3-7.7) k/uL Lymphocytes # 0.8 L (1.0-4.8) k/uL Sodium 131 L (137-145) mmol/L BUN 22 H (9-20) mg/dL Creatinine 0.65 L (0.66-1.25) mg/dL Glucose 172 H (74-99) mg/dL POC Glucose (mg/dL) 162 H (75-99) mg/dL Calcium 7.9 L (8.4-10.2) mg/dL Alkaline Phosphatase 182 H (38-126) U/L Total Protein 4.8 L (6.3-8.2) g/dL Albumin 2.2 L (3.5-5.0) g/dL
--- NOTE | 2021-08-12 16:15 | PN ---
PROGRESS NOTE DATE OF SERVICE: 08/12/2021 REASON FOR FOLLOWUP: 1. COVID-19 pneumonia. 2. Leukocytosis. INTERVAL HISTORY: The patient is afebrile. The patient is slightly more awake and alert today. He is breathing comfortably, currently on 5 L nasal cannula. He denies any chest pain or any worsening cough. No abdominal pain or diarrhea. PHYSICAL EXAMINATION: Blood pressure 120/58 with a pulse of 65, temperature is 98.2. He is 96% on 5 L nasal cannula. General description is an elderly male lying in bed in no distress. RESPIRATORY SYSTEM: Unlabored breathing. Decreased intensity of breath sounds. No wheeze. HEART: S1, S2. Regular rate and rhythm. ABDOMEN: Soft. No tenderness. LABS: Hemoglobin is 11.4, white count 22.5. Creatinine 0.65. DIAGNOSTIC IMPRESSION AND PLAN: 1. Patient with acute COVID-19 infection. Patient is slowly clinically improving. Currently on dexamethasone, baricitinib, Eliquis, zinc, ascorbic acid; to continue. 2. Elevated white count, more likely steroid-related. It will be monitored closely. Continue supportive care. MMODL / IJN: [id number] /
[2021-08-12 17:11] LABS: Glucose,Whole Blood 204 mg/dL (75-99)
[2021-08-12 17:11] LABS: Glucose,Whole Blood 219 mg/dL (75-99)
[2021-08-12] MEDS: ATORVASTATIN 40 MG TAB PO SCH (20:24)
[2021-08-12] MEDS: INSULIN DETEMIR (LEVEMIR) 100 UNIT/ML SYR SQ SCH (20:24)
[2021-08-13 00:03] LABS: Glucose,Whole Blood 165 mg/dL (75-99)
[2021-08-13] MEDS: INSULIN ASPART (NovoLOG) 100 UNIT/ML VIAL SQ SCH ×5 (00:29→23:44)
[2021-08-13 05:56] LABS: Glucose,Whole Blood 178 mg/dL (75-99)
[2021-08-13] MEDS: SODIUM CHLORIDE 0.9% 1,000 ML IV SCH ×2 (06:28→17:23)
[2021-08-13] MEDS: APIXABAN 5 MG TAB PO SCH ×2 (08:45→22:13)
[2021-08-13] MEDS: DEXAMETHASONE SOD PHOSPHATE 10 MG/ML 1 ML VIAL IV SCH (08:46)
[2021-08-13] MEDS: ASCORBIC ACID 500 MG TAB PO SCH (08:46)
[2021-08-13] MEDS: METOPROLOL TARTRATE 50 MG TAB PO SCH ×2 (08:46→22:13)
[2021-08-13 08:47] LABS: Basophils % (A) 0 %; Eosinophils # (A) 0.4 k/uL (0-0.7); Eosinophils % (A) 2 %; HCT 37.2 % (39.0-53.0); HGB 11.6 gm/dL (13.0-17.5); Lymphocytes % (A) 5 %; MCH 27.8 pg (25.0-35.0); MCHC 31.4 g/dL (31.0-37.0); MCV 88.6 fL (80.0-100.0); Mean Platelet Volume 8.4; Monocytes # (A) 0.6 k/uL (0-1.0); Monocytes % (A) 3 %; Neutrophils # (A) 16.6 k/uL (1.3-7.7); Neutrophils % (A) 89 %; Platelet Count 175 k/uL (150-450); RBC 4.19 m/uL (4.30-5.90); RDW 14.5 % (11.5-15.5); WBC 18.6 k/uL (3.8-10.6)
[2021-08-13] MEDS: CHOLECALCIFEROL 10 MCG (400 IU) TABLET PO SCH (08:48)
[2021-08-13] MEDS: BARICITINIB 2 MG TABLET PO SCH (08:48)
[2021-08-13] MEDS: PANTOPRAZOLE 40 MG/10 ML VIAL IVP SCH ×2 (08:48→22:14)
[2021-08-13] MEDS: ZINC SULFATE 220 MG CAP PO SCH (08:49)
[2021-08-13 09:01] LABS: ALT 53 U/L (4-49); AST 51 U/L (17-59); African American GFR (CKD) >90 (>60 ml/min/1.73 sqM); Albumin 2.2 g/dL (3.5-5.0); Albumin/Globulin Ratio 0.8; Alkaline Phosphatase 191 U/L (38-126); Anion Gap 6 mmol/L; Blood Urea Nitrogen 21 mg/dL (9-20); Calcium 8.2 mg/dL (8.4-10.2); Carbon Dioxide 29 mmol/L (22-30); Chloride 98 mmol/L (98-107); Globulin 2.7 g/dL; Glucose 209 mg/dL (74-99); Non-African American GFR(CKD) >90 (>60 ml/min/1.73 sqM); Potassium 3.9 mmol/L (3.5-5.1); Sodium 133 mmol/L (137-145); Total Bilirubin 0.5 mg/dL (0.2-1.3); Total Protein 4.9 g/dL (6.3-8.2)
[2021-08-13 12:03] LABS: Glucose,Whole Blood 226 mg/dL (75-99)
--- NOTE | 2021-08-13 12:46 | P.PN ---
Subjective Progress Note Date: 08/13/21 Principal diagnosis: COVID 19 On 08/13/2021 patient seen in follow-up on medical surgical floor. He is lethargic on today's exam, but does arouse to voice, he answers simple ques tions, he follows simple command, appears very weak, but breathing comfortably, he is currently on 5 L of oxygen with pulse ox of 92-97%, his been afebrile, doesn't appear to be in any acute distress, however his head is laying down on his shoulder, does not seem to be able to hold up his head erect. He knew the place and is oriented to person, but he thinks the president is Shlomo, and after a couple of hints he did say that the president is Etienne. His NG tube remains in place, and he has tube feedings infusing, he has been tolerating tube feedings well, she remains on Decadron 6 mg daily, he is on Eliquis 5 mg twice daily, he continues on IV fluids with 0.9 at 75. His chest x-ray from yesterday shows bilateral groundglass opacities within the lungs, NG tube is in appropriate position, no evident pneumothorax or pleural effusion, and there is a left-sided PICC line in place. Today's labs have been reviewed, his white blood cell count is improving and is down to 18.6, hemoglobin is 11.6, his sodium is improving and is up to 133, the rest of electrolytes were within normal limits, BUN is 21 creatinine 0.62, his ALT is up slightly at 53, AST was 51, alkaline phosphatase is relatively stable at 191 up slightly from 182, and his last pro-calcitonin that was done on 08/10/2021 was negative at 0.05. Patient has had no fever or chills. Patient has been nothing by mouth in view of his hypoxia, BiPAP dependence, recent stroke this admission, and overall generalized weakness and high aspiration risk. We'll obtain speech evaluation Objective - Vital Signs Vital signs: Vital Signs Temp 97.6 F 08/13/21 10:07 Pulse 63 08/13/21 10:07 Resp 16 08/13/21 10:07 BP 142/68 08/13/21 10:07 Pulse Ox 97 08/13/21 10:07 Intake & Output 08/12/21 08/13/21 08/13/21 18:59 06:59 18:59 Intake Total 1674 Output Total 181 1800 Balance -136 -1800 Weight 60.5 kg Intake: IV 900 Sodium Chloride 0.9% 1, 900 000 ml @ 75 mls/hr IV . [id number] REPLACED BY [facility] Rx#:[id number] Tube Feeding 684 Other 90 Output: Urine 1809 1800 Other: Voiding Method Indwelling Catheter Indwelling Catheter Indwelling Catheter - Exam GENERAL EXAM:lethargic but arousable to voice, overall appears to be generally weak, his head is resting in his left shoulder, and patient seems to be too weak to hold his head up comfortable in no apparent distress. HEAD: Normocephalic/atraumatic. EYES: Normal reaction of pupils, equal size. Conjunctiva pink, sclera white. NOSE: Clear with pink turbinates.NG tube is in place, patient is receiving tube feedings THROAT: No erythema or exudates. NECK: No masses, no JVD, no thyroid enlargement, no adenopathy. CHEST: No chest wall deformity. Symmetrical expansion. LUNGS: Equal air entry with no crackles, wheeze, rhonchi or dullness. CVS: Regular rate and rhythm, normal S1 and S2, no gallops, no murmurs, no rubs ABDOMEN: Soft, nontender. No hepatosplenomegaly, normal bowel sounds, no guarding or rigidity. EXTREMITIES: No clubbing, no edema, no cyanosis, 2+ pulses and upper and lower extremities. MUSCULOSKELETAL: Muscle strength and tone weak SPINE: No scoliosis or deformity SKIN: No rashes CENTRAL NERVOUS SYSTEM: Lethargic and oriented -2. 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 Appropriate affect. Intact judgment and insight. - Labs CBC & Chem 7: 08/13/21 08:07 08/13/21 08:07 Labs: Abnormal Lab Results - Last 24 Hours (Table) 08/12/21 08/12/21 08/13/21 Range/Units 17:08 17:09 00:00 WBC (3.8-10.6) k/uL RBC (4.30-5.90) m/uL Hgb (13.0-17.5) gm/dL Hct (39.0-53.0) % Neutrophils # (1.3-7.7) k/uL Sodium (137-145) mmol/L BUN (9-20) mg/dL Creatinine (0.66-1.25) mg/dL Glucose (74-99) mg/dL POC Glucose (mg/dL) 219 H 204 H 165 H (75-99) mg/dL Calcium (8.4-10.2) mg/dL ALT (4-49) U/L Alkaline Phosphatase (38-126) U/L Total Protein (6.3-8.2) g/dL Albumin (3.5-5.0) g/dL 08/13/21 08/13/21 08/13/21 Range/Units 05:54 08:07 08:07 WBC 18.6 H (3.8-10.6) k/uL RBC 4.19 L (4.30-5.90) m/uL Hgb 11.6 L (13.0-17.5) gm/dL Hct 37.2 L (39.0-53.0) % Neutrophils # 16.6 H (1.3-7.7) k/uL Sodium 133 L (137-145) mmol/L BUN 21 H (9-20) mg/dL Creatinine 0.62 L (0.66-1.25) mg/dL Glucose 209 H (74-99) mg/dL POC Glucose (mg/dL) 178 H (75-99) mg/dL Calcium 8.2 L (8.4-10.2) mg/dL ALT 53 H (4-49) U/L Alkaline Phosphatase 191 H (38-126) U/L Total Protein 4.9 L (6.3-8.2) g/dL Albumin 2.2 L (3.5-5.0) g/dL 08/13/21 Range/Units 12:02 WBC (3.8-10.6) k/uL RBC (4.30-5.90) m/uL Hgb (13.0-17.5) gm/dL Hct (39.0-53.0) % Neutrophils # (1.3-7.7) k/uL Sodium (137-145) mmol/L BUN (9-20) mg/dL Creatinine (0.66-1.25) mg/dL Glucose (74-99) mg/dL POC Glucose (mg/dL) 226 H (75-99) mg/dL Calcium (8.4-10.2) mg/dL ALT (4-49) U/L Alkaline Phosphatase (38-126) U/L Total Protein (6.3-8.2) g/dL Albumin (3.5-5.0) g/dL Assessment and Plan Plan: #1. Acute hypoxic respiratory failure secondary to COVID-19 pneumonia, improving, and patient is currently off BiPAP support, and is on 5 L of oxygen #2. History of embolic CVA with secondary altered mental status, there is a possibility of COVID-19 encephalopathy. #3. Left-sided weakness related to recent history of embolic CVA during this admission #4. Chronic atrial fibrillation, currently in sinus mechanism, patient has been on Eliquis #5. Elevated inflammatory markers secondary to COVID-19 pneumonia, and they are currently improving #6. Type 2 diabetes mellitus #7. Dyslipidemia #8. Leukocytosis with Toprol calcitonin level, improved #9. Dysphagia, patient remains on tube feedings per NG tube, we'll obtain speech evaluation #10. Overall general medical debility from COVID-19 pneumonia, and prolonged hospitalization Plan: Continue current medical treatment Wean FiO2 Continue current doses of Decadron, continue oral anticoagulation Remains lethargic and generally weak NG tube remains in place, patient remains nothing by mouth, maintain aspiration precautions he may need PEG tube placement if is unable to pass a swallow evaluation which we will obtain for tomorrow If fail swallow evaluation initiate surgical consultation for PEG tube placement Discharge planning is following and the plan is for ECF placement possibly early next week Patient is stable for ECF placement once his swallow evaluation is completed, and the decision is made on his tube feedings or oral feedings Overall prognosis is guarded I performed a history & physical examination of the patient and discussed their management with my nurse practitioner, Emily Tovar. I reviewed the nurse practitioner's note and agree with the documented findings and plan of care. Lung sounds are positive for diminished breath sounds throughout the lung [place]. The findings and the impression was discussed with the patient. I attest to the documentation by the nurse practitioner. Time with Patient: Less than 30
--- NOTE | 2021-08-13 12:57 | P.PN ---
Subjective Progress Note Date: 08/13/21 Progress Note Date: 08/11/21 Patient is a 75 -year-old pleasant male was transferred from a outside hospital for atrial fibrillation with rapid ventricular rate. Patient is presently on therapeutic dose of Lovenox. Also has highly elevated INR. His baseline creatinine is unknown but his present creatinine is around the 0.66, patient is receiving half-normal saline at 75 mL per hour patient is also on Remdesivir, presently on 15 L of oxygen, CT of the chest did not show any pulmonary embolism but did show diffuse infiltrate patient was having symptoms for about 4 days patient was unable to provide much of history to me patient is too tired and weak. Patient is not tolerating any by mouth medications at this time because of which patient was started on IV Cardizem patient usually takes metoprolol 25 twice a day. Patient doesn't have any history of congestive heart failure. Patient was started on Decadron as well. Patient has highly elevated d-dimer. 08/01/2021 Patient is seen in follow-up continues to be closely monitored in the ICU. Patient is extremely lethargic although is arousable and intermittently responding appropriately to questions and commands. Patient continues to have delayed response and altered mental status and CT of the brain was ordered. Neurology has been consulted and pulmonary along with urology following closely. She continues on IV heparin along with IV Cardizem. white blood count is 14.1, hemoglobin is stable at 16.1, d-dimer is above 34.10, sodium is 141 with a potassium of 4.5 and current creatinine is 0.61. LDH is 30-55 and CRP is 6.3. TSH is 0.112 and free T4 is 4.06. patient is maintained on 15 L high flow nasal cannula along with occasional intermittent nonrebreather. Patient is afebrile. 08/02/2021 Patient is seen in follow up this morning and is being closely monitored in the ICU with multiple medical consultations following including pulmonary, infectious disease, cardiology, and neurology. CT of the brain recommending MRI and this is ordered and pending. Patient is on 13L HF nasal cannula. Mentation slowly improving and answering questions appropriately. Patient continues to be extremely weak and fatigues easily. Cardiology planning to transition cardizem to oral and possibly starting eliquis. 08/03/2021 Patient is seen and evaluated in follow-up this morning and patient continues to improve although continues to be extremely weak and fatigued. Multiple medical consultations following an neurology recommending BARBARA although was reviewed by cardiology and no plans for BARBARA at this time as MRI along with CT confirms embolic stroke with MRI showing a few scattered areas of restricted diffusion in the inferior cerebellar hemispheres bilaterally with scattered areas of restricted diffusion present in the cerebellum, occipital lobes, as well as bilateral parietal lobes. Patient continued on subcutaneous heparin with discussion of possibly starting Eliquis in the next 2 days. Patient has been started on Brilinta an neurology is following closely. Speech has evaluated the patient and recommending continuing the patient with nothing by mouth except medications as the swallow eval was not able to be completed due to extreme fatigue and lethargy. Speech will reevaluate the patient once more alert and awake. White blood count today is 17.6 with a hemoglobin of 14.6, d-dimer is elevated at 27.78, sodium is 135 with a potassium of 3.6, BUN is 33 and creatinine is 0.59. Blood sugars are being closely monitored. Repeat x-ray and labs along with inflammatory markers in the a.m. Continuing to wean as tolerated and patient is maintained on 9 L high flow and maintaining oxygen saturations of 97%. Patient with atrial fibrillation currently rate controlled with metoprolol and cardiology is following. 08/04/2021 Patient is seen in follow-up this morning continues to be in the ICU and continues to drift often fall asleep easily although mentation has improved. Patient states the year as 1990 but also states he knows that is wrong and states he is currently in the hospital for Covid but was unaware of any recent stroke. Right side athletic turf worker strength 4/5 improving although patient is unable to completely lift extremity and left side athletic turf worker strength continues to be weak 2/5 and completely unable to lift this extremity. Multiple medical consultations including neurology, cardiology, tar processing technician along with infectious disease following closely. Patient being resumed on Eliquis and Brilinta has been discontinued. Chest x-ray today shows diffuse mild infiltrates greater on the left that can be compatible with atypical pneumonia. Awaiting repeat swallow eval today with the possibility of TPN for enteral nutrition as patient has been nothing by mouth. Patient continues on 11 L high flow and recommend to wean as tolerated. White blood count today is 27.3 with a hemoglobin of 15.6, d-dimer is 24.3, sodium is 131 with a potassium of 4.9, BUN is 26 and creatinine is 0.59. CRP is 4.3. Patient continues on baricitinib along with dexamethasone and vitamin and zinc supplements and will continue. 08/05/2021 Patient is evaluated today in the ICU, he is maintained on a BiPAP at the time of my assessment. Plan is to titrate oxygen as needed. Chest x-ray today reveals persistent left greater than right bilateral multifocal opacities. Labs are reviewed, White blood cell count 25.2. His d-dimer today is elevated at 29.09 which is slightly increased. LDH is 2286, CRP 5.8, pro calcitonin 0.07. Sodium today is 131. Vital signs include blood pressure 113/62. Respirations are 20s. Patient has remained afebrile. Swallow evaluation was conducted again today for follow-up for dysphagia intervention, that recommendations are for dysphagia 1. With honey thick liquid, supervision with basic needs. Patient needs one-to-one feeding with cues to swallow. Patient continues on baricitinib along with dexamethasone and vitamin and zinc supplements and will continue. Patient was evaluated by neurology today who feels as increasing right-sided weakness. Brain CT of the head initially reveals embolic ischemic insults. A repeat brain CT has been ordered to compare. We will hold off any BARBARA at this time per neurology and cardiology recommendations. 08/06/2021 Pt is alert and oriented x 3 at the time of my examination. He reports breathing better, able to take a deep breath. He is now on a 5L HF cannula with oxygen saturations in the mid 90s. BP today is 122/76, HR 88, afebrile. Labs are reviewed today, include a WBC of 24.6, sodium of 132, B of 24, Cr 0.57. Inflammatory markers continue to be elevated. Neurology has signed off today. Pt was able to lift left upper extremity off the bed however drifted and touched the bed after 2 seconds, his hand grasp was unequal with left weaker than right. A repeat brain CT was ordered for increasing upper extremity weakness. 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 There is no acute bleed. Patient continues on baricitinib, dexamethasone, zinc, and vitamins and will continue. 08/07/2021 Patient was seen and evaluated in follow-up as morning continues to be closely monitored in the ICU. Patient stating his shortness of breath mildly worsened and was on 5 L and now 7 L high flow. White blood count elevated at 25.4 and hemoglobin is stable at 14.4, sodium is 132 with a potassium of 3.9 current creatinine is 0.56. Magnesium is 2.0. Multiple medical consultations including neurology, infectious disease, and pulmonary following. Chest x-ray today shows bilateral groundglass consolidation slightly worsened in the interval. Patient is fatigued although arousable and responding appropriately. Left-sided weakness continues. Patient continues on IV dexamethasone along with vitamin and zinc supplements continued on anti-coagulant in the form of Eliquis and Baricitinib. Patient was also maintained on sliding scale along with long acting insulin although sugars have been low and actually required one amp of dextrose for a sugar less than 50 and will discontinue long-acting and continue sliding scale as needed. 08/08/2021 Patient is seen and evaluated in follow-up currently placed on BiPAP as patient oxygen saturations continued to deteriorate and patient was more lethargic. Patient continues to be in the ICU being closely monitored. BiPAP FiO2 is 40%. Patient is continued on vitamin and zinc supplements along with baricitinib, IV dexamethasone and eliquis and will continue. Pulmonary following closely. Patient continues to be lethargic with continued poor oral intake an NG tube was placed and dietitian consulted to begin tube feeds. Recommend Accu-Cheks and use sliding scale as needed. Chest x-ray this morning shows persistent left greater than right bilateral multifocal and confluent opacification his consistent with COVID-19 and no significant change from previous. 08/09/2021 Patient is seen and evaluated this morning and having a brief episode of atrial fibrillation with RVR with a heart rate of 130's -150's and cardizem was ordered although IV lasix dose was given and oral metoprolol most recently and appears to have converted back in sinus rhythm. Patient was extremely restless and attempting to take bipap mask off. Patient was extremely anxious and expressing concern of having to have a bowel movement. Multiple medical consultations following. Medications being adjusted by cardiology and increasing metoprolol dose. Patient is maintained on eliquis and Baricitinib along with steroids and vitamin supplements. Continue tube feeds for nutritional support. 08/10/2021 Patient was seen and evaluated in follow-up this morning continues to be closely monitored in the ICU with multiple medical consultations including pulmonary tar processing technician, infectious disease, and neurology has been asked to reevaluate the patient as patient continues to have intermittent periods of confusion but doesn't appear to be a change from previous. Patient is extremely lethargic and maintained on BiPAP although is arousable but continues to fatigue easily and follows sleep. Repeat CT of the brain has been ordered and pending. Patient continues on gentle IV hydration along with vitamin and zinc supplements and is maintained on oral anticoagulant along with IV dexamethasone. Patient is tolerating tube feedings via NG tube and blood sugars now mildly elevated and will continue sliding scale and Accu-Cheks before meals and at bedtime. White blood count is elevated at 24.4 and hemoglobin is 12.4, sodium remains low at 131 with a potassium of 3.9 and current creatinine is 0.59. LFTs within normal limits and pro calcitonin is 0.05. Chest x-ray this morning shows continued patchy peripheral bilateral Covid pneumonia with some slight improvement on the left. 08/11/2021 Patient is seen this morning continues to be closely monitored in the ICU. Patient was bipap dependent and recently being transitioned to high flow nasal cannula and currently on 6L HF and per nursing staff continuing to wean as tolerated. Patient was able to work with physical therapy today and continues to be extremely weak. Multiple medical consultations following. Per nursing staff, patient will continue in the ICU with possible downgrade to the selective unit in the next few days. Blood sugars have been increasing and will continue sliding scale and will add long acting. 08/12/2021 Patient seen in the ICU, he is an overflow patient. O2 requirements down to 5 L nasal cannula today, he is alert but confused. Sodium level coming up to 131, he continues on Decadron, blood sugars 162 this afternoon. Chest x-ray repeated today showing bilateral groundglass opacities, no pneumothorax or pleural effusion. Continues in Nico feedings, NG tube in place. No fevers, hemodynamically stable 08/13/2021 Patient seen on reevaluation he is transferred out of the ICU and on the medical floor. He is more alert today, following commands able to move his extremities when prompted 2. He remains nothing by mouth, speech to reevaluate if he fails he may require PEG tube placement. He is currently on 5 L nasal cannula saturating above 90%, afebrile, hemodynamically stable Review of systems: Unable to obtain patient is poor historian All medications have been reviewed Active Medications Acetaminophen (Acetaminophen Tab 325 Mg Tab) 650 mg PO Q4HR PRN PRN Reason: Fever and/ or Pain Apixaban (Apixaban 5 Mg Tab) 5 mg PO BID [facility]; Protocol Last Admin: 08/11/21 21:02 Dose: 5 mg Documented by: Ascorbic Acid (Ascorbic Acid 500 Mg Tab) 500 mg PO DAILY [facility] Last Admin: 08/11/21 09:28 Dose: 500 mg Documented by: Atorvastatin Calcium (Atorvastatin 40 Mg Tab) 40 mg PO HS [facility] Last Admin: 08/11/21 21:01 Dose: 40 mg Documented by: Baricitinib (Baricitinib 2 Mg Tablet) 4 mg PO DAILY [facility] Stop: 08/13/21 09:01 Last Admin: 08/11/21 09:28 Dose: 4 mg Documented by: Calcium Carbonate/Glycine (Calcium Carbonate 500 Mg Chewable) 500 mg PO TID PRN PRN Reason: Heartburn Last Admin: 08/06/21 08:37 Dose: 500 mg Documented by: Cholecalciferol (Cholecalciferol 10 Mcg (400 Iu) Tablet) 10 mcg PO DAILY [facility] Last Admin: 08/11/21 09:28 Dose: 10 mcg Documented by: Dexamethasone Sodium Phosphate (Dexamethasone Sod Phosphate 10 Mg/Ml 1 Ml Vial) 6 mg IV DAILY [facility] Last Admin: 08/11/21 09:28 Dose: 6 mg Documented by: Sodium Chloride (Saline 0.9%) 1,000 mls @ 75 mls/hr IV .[id number] [facility] Last Admin: 08/12/21 00:14 Dose: 75 mls/hr Documented by: Insulin Aspart (Insulin Aspart (Novolog) 100 Unit/Ml Vial) 0 unit SQ Q6HR [facility]; Protocol Last Admin: 08/12/21 00:14 Dose: 3 unit Documented by: Insulin Detemir (Insulin Detemir (Levemir) 100 Unit/Ml Syr) 15 unit SQ HS [facility] Last Admin: 08/11/21 21:02 Dose: 15 unit Documented by: Metoprolol Tartrate (Metoprolol Tartrate 50 Mg Tab) 100 mg PO BID [facility] Last Admin: 08/11/21 21:02 Dose: 100 mg Documented by: Miscellaneous Information (Potassium Replacement Protocol 1 Each Misc) 1 each MISCELLANE DAILY PRN; Protocol PRN Reason: Per Protocol Miscellaneous Information (Magnesium Replacement Protocol 1 Each Misc) 1 each MISCELLANE DAILY PRN; Protocol PRN Reason: Per Protocol Pantoprazole Sodium (Pantoprazole 40 Mg/10 Ml Vial) 40 mg IVP BID [facility] Last Admin: 08/11/21 21:01 Dose: 40 mg Documented by: Sodium Chloride (Sodium Chloride 0.9% Flush 10 Ml Syringe) 10 ml IV Q4HR PRN PRN Reason: PICC Line Sodium Chloride (Sodium Chloride 0.9% Flush 10 Ml Syringe) 10 ml IV WEEKLY [facility] Last Admin: 08/09/21 09:44 Dose: 10 ml Documented by: Sodium Chloride (Sodium Chloride 0.9% Flush 10 Ml Syringe) 20 ml IV Q4HR PRN PRN Reason: PICC Line Zinc Sulfate (Zinc Sulfate 220 Mg Cap) 220 mg PO DAILY [facility] Last Admin: 08/11/21 09:28 Dose: 220 mg Documented by: PHYSICAL EXAMINATION: GENERAL: The patient is alert and oriented x2, follows commands Thin built. Continues on NC after recent transition from BIPAP. Temp is 98.6, pulse is 65, resp are 15, blood pressure is 152/65, and 02 is 100% on 6L HF via NC HEENT: Pupils are round and equally reacting to light. EOMI. No scleral icterus. No conjunctival pallor. Normocephalic, atraumatic. No pharyngeal erythema. No thyromegaly. NG tube noted CARDIOVASCULAR: S1 and S2 muffled. PULMONARY: Diffuse bilateral coarse rhonchi noted with diminished breath sounds at the bases ABDOMEN: Soft, nontender, nondistended, normoactive bowel sounds. No palpable organomegaly. MUSCULOSKELETAL: No joint swelling or deformity. EXTREMITIES: No cyanosis, clubbing, or pedal edema. NEUROLOGICAL: Left athletic turf worker strength 4/5, right athletic turf worker strength 4/5. Diffusely weak, improvement in upper extremity strength although weakness remains present SKIN: No rashes. Assessment and plan: -Covid 19 pneumonia -Acute hypoxic respiratory failure secondary to COVID-19 pneumonia, on 5 L nasal cannula -Possible metabolic encephalopathy -dysphagia, speech reevaluation possible PEG tube if fails swallow -Atrial fibrillation with rapid ventricular rate new onset, currently rate controlled with metoprolol -elevated d-dimer with no evidence of PE on CTA -Mild protein calorie malnutrition secondary to poor oral intake due to respiratory status deterioration -altered mental status possibly secondary to COVID-19 encephalopathy or possibly secondary to bilateral hemispheric stroke -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 Remains on 5 L nasal cannula saturating above 90%, continue to titrate down FiO2 as tolerated, encourage incentive spirometer. He is anticoagulated with Eliquis, rate is controlled. Continues on Decadron, Covid vitamins has received baricitinab. Tube feedings, speech reevaluation of p atient follow swallow eval he will likely need PEG tube placement. PT/OT evaluations. Monitor blood sugars and adjust insulin regimen accordingly is currently on Levemir and sliding scale coverage. Neurology on Board. We will continue to follow, further recommendations pending clinical course Objective - Vital Signs Vital signs: Vital Signs Temp 97.6 F 08/13/21 10:07 Pulse 63 08/13/21 10:07 Resp 16 08/13/21 10:07 BP 142/68 08/13/21 10:07 Pulse Ox 97 08/13/21 10:07 Intake & Output 08/12/21 08/13/21 08/13/21 18:59 06:59 18:59 Intake Total 1674 Output Total 1810 1800 Balance -136 -1800 Weight 60.5 kg Intake: IV 900 Sodium Chloride 0.9% 1, 900 000 ml @ 75 mls/hr IV . [id number] [facility] Rx#:[id number] Tube Feeding 684 Other 90 Output: Urine 1810 1800 Other: Voiding Method Indwelling Catheter Indwelling Catheter Indwelling Catheter - Labs CBC & Chem 7: 08/13/21 08:07 08/13/21 08:07 Labs: Abnormal Lab Results - Last 24 Hours (Table) 08/12/21 08/12/21 08/13/21 Range/Units 17:08 17:09 00:00 WBC (3.8-10.6) k/uL RBC (4.30-5.90) m/uL Hgb (13.0-17.5) gm/dL Hct (39.0-53.0) % Neutrophils # (1.3-7.7) k/uL Sodium (137-145) mmol/L BUN (9-20) mg/dL Creatinine (0.66-1.25) mg/dL Glucose (74-99) mg/dL POC Glucose (mg/dL) 219 H 204 H 165 H (75-99) mg/dL Calcium (8.4-10.2) mg/dL ALT (4-49) U/L Alkaline Phosphatase (38-126) U/L Total Protein (6.3-8.2) g/dL Albumin (3.5-5.0) g/dL 08/13/21 08/13/21 08/13/21 Range/Units 05:54 08:07 08:07 WBC 18.6 H (3.8-10.6) k/uL RBC 4.19 L (4.30-5.90) m/uL Hgb 11.6 L (13.0-17.5) gm/dL Hct 37.2 L (39.0-53.0) % Neutrophils # 16.6 H (1.3-7.7) k/uL Sodium 133 L (137-145) mmol/L BUN 21 H (9-20) mg/dL Creatinine 0.62 L (0.66-1.25) mg/dL Glucose 209 H (74-99) mg/dL POC Glucose (mg/dL) 178 H (75-99) mg/dL Calcium 8.2 L (8.4-10.2) mg/dL ALT 53 H (4-49) U/L Alkaline Phosphatase 191 H (38-126) U/L Total Protein 4.9 L (6.3-8.2) g/dL Albumin 2.2 L (3.5-5.0) g/dL 08/13/21 Range/Units 12:02 WBC (3.8-10.6) k/uL RBC (4.30-5.90) m/uL Hgb (13.0-17.5) gm/dL Hct (39.0-53.0) % Neutrophils # (1.3-7.7) k/uL Sodium (137-145) mmol/L BUN (9-20) mg/dL Creatinine (0.66-1.25) mg/dL Glucose (74-99) mg/dL POC Glucose (mg/dL) 226 H (75-99) mg/dL Calcium (8.4-10.2) mg/dL ALT (4-49) U/L Alkaline Phosphatase (38-126) U/L Total Protein (6.3-8.2) g/dL Albumin (3.5-5.0) g/dL
[2021-08-13 16:37] LABS: Glucose,Whole Blood 281 mg/dL (75-99)
[2021-08-13] MEDS: INSULIN DETEMIR (LEVEMIR) 100 UNIT/ML SYR SQ SCH (22:13)
[2021-08-13] MEDS: ATORVASTATIN 40 MG TAB PO SCH (22:14)
[2021-08-13 23:25] LABS: Glucose,Whole Blood 298 mg/dL (75-99)
--- NOTE | 2021-08-14 02:57 | PN ---
PROGRESS NOTE DATE OF SERVICE: 08/13/2021 REASON FOR FOLLOWUP: COVID-19 pneumonia. INTERVAL HISTORY: The patient is afebrile. He is currently breathing comfortably on nasal cannula oxygen. The patient denies any chest pain or any worsening cough. No abdominal pain or diarrhea. PHYSICAL EXAMINATION: Blood pressure 134/71 with a pulse of 70, temperature 97.3. He is 96% on 4 L nasal cannula. General description is an elderly male lying in bed in no distress. Respiratory system: Unlabored breathing, decreased intensity of breath sounds. No wheeze. Heart S1, S2. Regular rate and rhythm. Abdomen soft, no tenderness. LABS: Hemoglobin 11.6, white count is down to 18, creatinine 0.62. DIAGNOSTIC IMPRESSION AND PLAN: 1. Patient with acute COVID-19 pneumonia in this patient seemed to have shown some clinical improvement. The patient to continue with Eliquis, dexamethasone, zinc and ascorbic acid. 2. Elevated white count more likely steroid effect, showing a downward trend. No evidence of any worsening condition. MMODL / IJN: [id number] /
[2021-08-14 03:35] LABS: Glucose,Whole Blood 302 mg/dL (75-99)
[2021-08-14 03:35] LABS: Glucose,Whole Blood 257 mg/dL (75-99)
[2021-08-14] MEDS ORDERED: DILTIAZEM DRIP BOLUS FROM BAG 1 MG SOLN IV ONE ×2 (04:03→18:30)
[2021-08-14] MEDS ORDERED: METOPROLOL TARTRATE 5 MG/5 ML VIAL IVP ONE ×2 (04:12→18:50)
--- NOTE | 2021-08-14 04:21 | XR ---
EXAMINATION TYPE: XR chest 1V portable DATE OF EXAM: 08/14/2021 COMPARISON: 08/12/2021 HISTORY: Short of breath TECHNIQUE: Single view FINDINGS: There is extensive interstitial and airspace edema in both lungs. There is blunting of the costophrenic angles. There are chest leads. There is nasogastric tube in the stomach. There is multil evel cervical spine fusion surgery. There is left-sided central venous catheter with tip in the right atrium. IMPRESSION: There is pulmonary edema and pleural fluid that is not significantly different than last exam. There is clearing of the soft tissue air on the left lateral chest wall compared to old exam.
[2021-08-14] MEDS ORDERED: ACETAMINOPHEN IV (For NPO) 1,000 MG in EMPTY BAG 1 BAG IVPB ONE (04:31)
[2021-08-14 05:01] LABS: Basophils % (A) 0 %; Eosinophils # (A) 0.2 k/uL (0-0.7); Eosinophils % (A) 1 %; HCT 38.7 % (39.0-53.0); HGB 12.7 gm/dL (13.0-17.5); Lymphocytes # (A) 0.7 k/uL (1.0-4.8); Lymphocytes % (A) 2 %; MCH 28.7 pg (25.0-35.0); MCHC 32.8 g/dL (31.0-37.0); MCV 87.4 fL (80.0-100.0); Mean Platelet Volume 8.2; Monocytes # (A) 0.3 k/uL (0-1.0); Monocytes % (A) 1 %; Neutrophils # (A) 31.8 k/uL (1.3-7.7); Neutrophils % (A) 96 %; Platelet Count 193 k/uL (150-450); RBC 4.43 m/uL (4.30-5.90); RDW 14.6 % (11.5-15.5); WBC 33.2 k/uL (3.8-10.6)
[2021-08-14 05:25] LABS: ALT 57 U/L (4-49); AST 58 U/L (17-59); African American GFR (CKD) >90 (>60 ml/min/1.73 sqM); Albumin 2.5 g/dL (3.5-5.0); Albumin/Globulin Ratio 0.8; Alkaline Phosphatase 229 U/L (38-126); Anion Gap 8 mmol/L; Blood Urea Nitrogen 25 mg/dL (9-20); Calcium 8.4 mg/dL (8.4-10.2); Carbon Dioxide 28 mmol/L (22-30); Chloride 95 mmol/L (98-107); Globulin 3.1 g/dL; Glucose 188 mg/dL (74-99); Non-African American GFR(CKD) >90 (>60 ml/min/1.73 sqM); Sodium 131 mmol/L (137-145); Total Bilirubin 1.1 mg/dL (0.2-1.3); Total Protein 5.6 g/dL (6.3-8.2)
--- NOTE | 2021-08-14 05:31 | P.EN ---
A team note patient was admitted for covid , and then had a bilateral hemisphere stroke , thought to be an embolic stroke due to new onset afib. extensive workup done. currently patient is on anticoagulation with eliquis for stroke ppx. today , patient became hypoxic and tachypnic, with heart rate in the 130s with tele reporting episodes of afib with RVR, and hypertension with systolic blood pressure >190 patient all of sudden became more hypoxic and less responsive with oxygen sat in the low 80s % despite non rebreather lungs good breath sounds bilaterally , with inspiratory rales no leg edema , bill cath in place with good urine output no skin breakdown or ulcers patient temp is 101.5 axillary CXR was repeated, patient placed on high flow oxygen and given one time dose of lopressor IVP 5 mg he improved over all, with HR down to mid 90s , sinus rhythm, BP improved to 170s systolic patient remains less responsive compared to earlier during the night per RN acetaminophine IVPB ordered , and will reassess acute hypoxic respiratory failure malignant hypertension sinus tachycardia fever patient re-evaluated about 30 minutes later, and this time his blood pressure 160s systolic temp 100.7 HR mid 80s oxygen sat 96% on high flow nasal canula however, he is not following commands. he is moaning , but does not open eyes, pupiles reactive to light and equal. check stat CT of the brain to rule out any intracranial acute pathology like bleeding . patient had embolic stroke bilateral hemisphere recently during this hospital stay , and currently on anticoagualtion with eliquis . 65 minutes were spent in critical care service not counting procedure time , in the care of this patient
--- NOTE | 2021-08-14 05:43 | CT ---
EXAMINATION TYPE: CT brain wo con DATE OF EXAM: 08/14/2021 COMPARISON: 08/10/2021 HISTORY: AMS CT DLP: 1158.40 mGycm Automated exposure control for dose reduction was used. There is cerebral atrophy. There is no mass effect nor midline shift. There is no sign of intracrania l hemorrhage. Calvarium is intact. Skull base is intact. There is normal aeration of the mastoid sinu ses. There is 1 cm area of hypodensity in the medial right thalamus consistent with old lacunar infar ct. IMPRESSION: Cerebral atrophy. No acute intracranial abnormality. Old right thalamic lacunar infarct. No change.
[2021-08-14] MEDS ORDERED: SODIUM CHLORIDE 0.9% 500 ML 500 ML IV ONE (05:58)
[2021-08-14 06:56] LABS: Glucose,Whole Blood 97 mg/dL (75-99)
[2021-08-14] MEDS: INSULIN ASPART (NovoLOG) 100 UNIT/ML VIAL SQ SCH ×3 (07:20→18:37)
[2021-08-14] MEDS: APIXABAN 5 MG TAB PO SCH ×2 (09:08→20:18)
[2021-08-14] MEDS: ZINC SULFATE 220 MG CAP PO SCH (09:08)
[2021-08-14] MEDS: CHOLECALCIFEROL 10 MCG (400 IU) TABLET PO SCH (09:08)
[2021-08-14] MEDS: METOPROLOL TARTRATE 50 MG TAB PO SCH ×2 (09:08→20:19)
[2021-08-14] MEDS: ASCORBIC ACID 500 MG TAB PO SCH (09:08)
[2021-08-14] MEDS: PANTOPRAZOLE 40 MG/10 ML VIAL IVP SCH ×2 (09:08→20:19)
[2021-08-14] MEDS: DEXAMETHASONE SOD PHOSPHATE 10 MG/ML 1 ML VIAL IV SCH (09:08)
[2021-08-14] MEDS: SODIUM CHLORIDE 0.9% 1,000 ML IV SCH (09:09)
[2021-08-14 11:36] LABS: Glucose,Whole Blood 171 mg/dL (75-99)
[2021-08-14] MEDS ORDERED: FUROSEMIDE 10 MG/ML 4 ML VIAL IV STA (14:35)
--- NOTE | 2021-08-14 14:43 | P.PN ---
Subjective Progress Note Date: 08/14/21 Principal diagnosis: COVID 19 On 08/13/2021 patient seen in follow-up on medical surgical floor. He is lethargic on today's exam, but does arouse to voice, he answers simple ques tions, he follows simple command, appears very weak, but breathing comfortably, he is currently on 5 L of oxygen with pulse ox of 92-97%, his been afebrile, doesn't appear to be in any acute distress, however his head is laying down on his shoulder, does not seem to be able to hold up his head erect. He knew the place and is oriented to person, but he thinks the president is Shlomo, and after a couple of hints he did say that the president is Etienne. His NG tube remains in place, and he has tube feedings infusing, he has been tolerating tube feedings well, she remains on Decadron 6 mg daily, he is on Eliquis 5 mg twice daily, he continues on IV fluids with 0.9 at 75. His chest x-ray from yesterday shows bilateral groundglass opacities within the lungs, NG tube is in appropriate position, no evident pneumothorax or pleural effusion, and there is a left-sided PICC line in place. Today's labs have been reviewed, his white blood cell count is improving and is down to 18.6, hemoglobin is 11.6, his sodium is improving and is up to 133, the rest of electrolytes were within normal limits, BUN is 21 creatinine 0.62, his ALT is up slightly at 53, AST was 51, alkaline phosphatase is relatively stable at 191 up slightly from 182, and his last pro-calcitonin that was done on 08/10/2021 was negative at 0.05. Patient has had no fever or chills. Patient has been nothing by mouth in view of his hypoxia, BiPAP dependence, recent stroke this admission, and overall generalized weakness and high aspiration risk. We'll obtain speech evaluation On 08/14/2021 patient seen in follow-up on medical surgical floor, he is more lethargic on today's exam, he requires repeated for most stipulation, and tactile stimulation to open his eyes, does not appear to be in any acute distress, rapid response team was called last night, for worsening hypoxia, tachypnea, and his heart rate was in the 130s, A. fib with RVR, his blood pressure was elevated at greater than 190 systolic. Patient was noted to have oxygen saturations in the low 80s on the 100% non-rebreather. He did have a temp of 101.5F, chest x-ray was repeated showing pulmonary edema and pleural fluid is not significantly different from his last exam. Patient was placed on Airvo on which she remains, initially at 60 L an FiO2 of 93%, his pulse ox did improve. Subsequently his FiO2 was dropped down to 80%, his pulse ox is still 96-99%. Today's labs show increased white blood cell, which is currently at 33.2, hemoglobin of 12.7, d-dimer is 14.04, sodium is 131, potassium is 4.0, chloride is 95, BUN is 25 creatinine 0.61. Remains on Decadron 6 mg daily, she was given a dose of IV push Lopressor, he continues on Lopressor 100 mg by mouth twice daily. His mentation remains lethargic, and patient is an increased risk for aspiration. He was supposed to be seen by speech therapy today and have a swallow evaluation to evaluate for potential ability to eat by mouth. It was suspected that he will need a PEG tube. He still has the NG tube in his nose, and receiving tube feedings with vital AF at rate of 57. Objective - Vital Signs Vital signs: Vital Signs Temp 98.5 F 08/14/21 13:22 Pulse 75 08/14/21 13:22 Resp 20 08/14/21 13:22 BP 121/51 08/14/21 13:22 Pulse Ox 96 08/14/21 13:22 Intake & Output 08/13/21 08/14/21 08/14/21 18:59 06:59 18:59 Intake Total 352 2000 Output Total 1900 701 Balance -1548 1299 Weight 60 kg Intake: Oral 1000 Tube Feeding 352 1000 Output: Urine 1900 700 Stool 1 Other: Voiding Method Indwelling Catheter Indwelling Catheter Indwelling Catheter # Bowel Movements 0 - Exam GENERAL EXAM:lethargic but arousable to voice, overall appears to be generally weak, his head is resting in his left shoulder, patient is currently on Airvo, at 60 l/min, and FiO2 of 80% HEAD: Normocephalic/atraumatic. EYES: Normal reaction of pupils, equal size. Conjunctiva pink, sclera white. NOSE: Clear with pink turbinates.NG tube is in place, patient is receiving tube feedings THROAT: No erythema or exudates. NECK: No masses, no JVD, no thyroid enlargement, no adenopathy. CHEST: No chest wall deformity. Symmetrical expansion. LUNGS: Equal air entry with no crackles, wheeze, rhonchi or dullness. CVS: Regular rate and rhythm, normal S1 and S2, no gallops, no murmurs, no rubs ABDOMEN: Soft, nontender. No hepatosplenomegaly, normal bowel sounds, no guarding or rigidity. EXTREMITIES: No clubbing, no edema, no cyanosis, 2+ pulses and upper and lower extremities. MUSCULOSKELETAL: Muscle strength and tone weak SPINE: No scoliosis or deformity SKIN: No rashes CENTRAL NERVOUS SYSTEM: Lethargic and oriented -2. 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 Appropriate affect. Intact judgment and insight. - Labs CBC & Chem 7: 08/14/21 04:45 08/14/21 04:45 Labs: Abnormal Lab Results - Last 24 Hours (Table) 08/13/21 08/13/21 08/14/21 Range/Units 16:36 23:20 03:30 WBC (3.8-10.6) k/uL Hgb (13.0-17.5) gm/dL Hct (39.0-53.0) % Neutrophils # (1.3-7.7) k/uL Lymphocytes # (1.0-4.8) k/uL D-Dimer (<0.60) mg/L FEU Sodium (137-145) mmol/L Chloride (98-107) mmol/L BUN (9-20) mg/dL Creatinine (0.66-1.25) mg/dL Glucose (74-99) mg/dL POC Glucose (mg/dL) 281 H 298 H 302 H (75-99) mg/dL ALT (4-49) U/L Alkaline Phosphatase (38-126) U/L Total Protein (6.3-8.2) g/dL Albumin (3.5-5.0) g/dL 08/14/21 08/14/21 08/14/21 Range/Units 03:32 04:45 04:45 WBC 33.2 H (3.8-10.6) k/uL Hgb 12.7 L (13.0-17.5) gm/dL Hct 38.7 L (39.0-53.0) % Neutrophils # 31.8 H (1.3-7.7) k/uL Lymphocytes # 0.7 L (1.0-4.8) k/uL D-Dimer (<0.60) mg/L FEU Sodium 131 L (137-145) mmol/L Chloride 95 L (98-107) mmol/L BUN 25 H (9-20) mg/dL Creatinine 0.61 L (0.66-1.25) mg/dL Glucose 188 H (74-99) mg/dL POC Glucose (mg/dL) 257 H (75-99) mg/dL ALT 57 H (4-49) U/L Alkaline Phosphatase 229 H (38-126) U/L Total Protein 5.6 L (6.3-8.2) g/dL Albumin 2.5 L (3.5-5.0) g/dL 08/14/21 08/14/21 Range/Units 04:45 11:30 WBC (3.8-10.6) k/uL Hgb (13.0-17.5) gm/dL Hct (39.0-53.0) % Neutrophils # (1.3-7.7) k/uL Lymphocytes # (1.0-4.8) k/uL D-Dimer 14.04 H (<0.60) mg/L FEU Sodium (137-145) mmol/L Chloride (98-107) mmol/L BUN (9-20) mg/dL Creatinine (0.66-1.25) mg/dL Glucose (74-99) mg/dL POC Glucose (mg/dL) 171 H (75-99) mg/dL ALT (4-49) U/L Alkaline Phosphatase (38-126) U/L Total Protein (6.3-8.2) g/dL Albumin (3.5-5.0) g/dL Assessment and Plan Plan: #1. Acute hypoxic respiratory failure secondary to COVID-19 pneumonia, patient was on BiPAP support, his oxygenation had improved, however patient is having waxing and waning improving and worsening oxygenation issues related to suspected aspiration. Currently on Airvo a 60 L and FiO2 of 80% #2. 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 #4. Left-sided weakness related to recent history of embolic CVA during this admission #5. Chronic atrial fibrillation, currently in sinus mechanism, patient has been on Eliquis #6. Elevated inflammatory markers secondary to COVID-19 pneumonia, and they are currently improving #7. Type 2 diabetes mellitus #8. Dyslipidemia #9. Worsening leukocytosis with negative procalcitonin level, we'll repeat a pro-calcitonin level #10. Overall general medical debility from COVID-19 pneumonia, and prolonged hospitalization Plan: Patient had clinical setback last night He is back on high flow oxygen, currently on Airvo is 60 L and FiO2 of 80% Suspect aspiration pneumonia We will empirically place the patient on Zosyn Send a procalcitonin level Follow-up blood work, chest x-ray tomorrow Plan surgical consultation for placement of PEG tube His mentation remains very lethargic and generalized weakness Overall prognosis is poor There needs to be discussion with his family about his CODE STATUS I performed a history & physical examination of the patient and discussed their management with my nurse practitioner, Emily Tovar. I reviewed the nurse practitioner's note and agree with the documented findings and plan of care. Lung sounds are positive for diminished breath sounds throughout the lung [place]. The findings and the impression was discussed with the patient. I attest to the documentation by the nurse practitioner. Time with Patient: Less than 30
--- NOTE | 2021-08-14 16:35 | P.PN ---
Subjective Progress Note Date: 08/14/21 Patient is a 75 -year-old pleasant male was transferred from a outside hospital for atrial fibrillation with rapid ventricular rate. Patient is presently on therapeutic dose of Lovenox. Also has highly elevated INR. His baseline creatinine is unknown but his present creatinine is around the 0.66, patient is receiving half-normal saline at 75 mL per hour patient is also on Remdesivir, presently on 15 L of oxygen, CT of the chest did not show any pulmonary embolism but did show diffuse infiltrate patient was having symptoms for about 4 days patient was unable to provide much of history to me patient is too tired and weak. Patient is not tolerating any by mouth medications at this time because of which patient was started on IV Cardizem patient usually takes metoprolol 25 twice a day. Patient doesn't have any history of congestive heart failure. Patient was started on Decadron as well. Patient has highly elevated d-dimer. 08/01/2021 Patient is seen in follow-up continues to be closely monitored in the ICU. Patient is extremely lethargic although is arousable and intermittently resp onding appropriately to questions and commands. Patient continues to have delayed response and altered mental status and CT of the brain was ordered. Neurology has been consulted and pulmonary along with urology following closely. She continues on IV heparin along with IV Cardizem. white blood count is 14.1, hemoglobin is stable at 16.1, d-dimer is above 34.10, sodium is 141 with a potassium of 4.5 and current creatinine is 0.61. LDH is 30-55 and CRP is 6.3. TSH is 0.112 and free T4 is 4.06. patient is maintained on 15 L high flow nasal cannula along with occasional intermittent nonrebreather. Patient is afebrile. 08/02/2021 Patient is seen in follow up this morning and is being closely monitored in the ICU with multiple medical consultations following including pulmonary, infectiou s disease, cardiology, and neurology. CT of the brain recommending MRI and this is ordered and pending. Patient is on 13L HF nasal cannula. Mentation slowly improving and answering questions appropriately. Patient continues to be extremely weak and fatigues easily. Cardiology planning to transition cardizem to oral and possibly starting eliquis. 08/03/2021 Patient is seen and evaluated in follow-up this morning and patient continues to improve although continues to be extremely weak and fatigued. Multiple medical consultations following an neurology recommending BARBARA although was reviewed by cardiology and no plans for BARBARA at this time as MRI along with CT confirms embolic stroke with MRI showing a few scattered areas of restricted diffusion in the inferior cerebellar hemispheres bilaterally with scattered areas of restricted diffusion present in the cerebellum, occipital lobes, as well as bilateral parietal lobes. Patient continued on subcutaneous heparin with discussion of possibly starting Eliquis in the next 2 days. Patient has been started on Brilinta an neurology is following closely. Speech has evaluated the patient and recommending continuing the patient with nothing by mouth except medications as the swallow eval was not able to be completed due to extreme fatigue and lethargy. Speech will reevaluate the patient once more alert and awake. White blood count today is 17.6 with a hemoglobin of 14.6, d-dimer is elevated at 27.78, sodium is 135 with a potassium of 3.6, BUN is 33 and creatinine is 0.59. Blood sugars are being closely monitored. Repeat x-ray and labs along with inflammatory markers in the a.m. Continuing to wean as tolerated and patient is maintained on 9 L high flow and maintaining oxygen saturations of 97%. Patient with atrial fibrillation currently rate controlled with metoprolol and cardiology is following. 08/04/2021 Patient is seen in follow-up this morning continues to be in the ICU and continues to drift often fall asleep easily although mentation has improved. Patient states the year as 1990 but also states he knows that is wrong and states he is currently in the hospital for Covid but was unaware of any recent stroke. Right side guillotine trimmer strength 4/5 improving although patient is unable to completely lift extremity and left side guillotine trimmer strength continues to be weak 2/5 and completely unable to lift this extremity. Multiple medical consultations including neurology, cardiology, graphic artist along with infectious disease following closely. Patient being resumed on Eliquis and Brilinta has been discontinued. Chest x-ray today shows diffuse mild infiltrates greater on the left that can be compatible with atypical pneumonia. Awaiting repeat swallow eval today with the possibility of TPN for enteral nutrition as patient has been nothing by mouth. Patient continues on 11 L high flow and recommend to wean as tolerated. White blood count today is 27.3 with a hemoglobin of 15.6, d-dimer is 24.3, sodium is 131 with a potassium of 4.9, BUN is 26 and creatinine is 0.59. CRP is 4.3. Patient continues on baricitinib along with dexamethasone and vitamin and zinc supplements and will continue. 08/05/2021 Patient is evaluated today in the ICU, he is maintained on a BiPAP at the time of my assessment. Plan is to titrate oxygen as needed. Chest x-ray today reveals persistent left greater than right bilateral multifocal opacities. Labs are reviewed, White blood cell count 25.2. His d-dimer today is elevated at 29.09 which is slightly increased. LDH is 2286, CRP 5.8, pro calcitonin 0.07. Sodium today is 131. Vital signs include blood pressure 113/62. Respirations are 20s. Patient has remained afebrile. Swallow evaluation was conducted again today for follow-up for dysphagia intervention, that recommendations are for dysphagia 1. With honey thick liquid, supervision with basic needs. Patient n eeds one-to-one feeding with cues to swallow. Patient continues on baricitinib along with dexamethasone and vitamin and zinc supplements and will continue. Patient was evaluated by neurology today who feels as increasing right-sided weakness. Brain CT of the head initially reveals embolic ischemic insults. A repeat brain CT has been ordered to compare. We will hold off any BARBARA at this time per neurology and cardiology recommendations. 08/06/2021 Pt is alert and oriented x 3 at the time of my examination. He reports breathing better, able to take a deep breath. He is now on a 5L HF cannula with oxygen saturations in the mid 90s. BP today is 122/76, HR 88, afebrile. Labs are reviewed today, include a WBC of 24.6, sodium of 132, B of 24, Cr 0.57. Inflammatory markers continue to be elevated. Neurology has signed off today. Pt was able to lift left upper extremity off the bed however drifted and touched the bed after 2 seconds, his hand grasp was unequal with left weaker than right. A repeat brain CT was ordered for increasing upper extremity weakness. 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 There is no acute bleed. Patient continues on baricitinib, dexamethasone, zinc, and vitamins and will continue. 08/07/2021 Patient was seen and evaluated in follow-up as morning continues to be closely monitored in the ICU. Patient stating his shortness of breath mildly worsened and was on 5 L and now 7 L high flow. White blood count elevated at 25.4 and hemoglobin is stable at 14.4, sodium is 132 with a potassium of 3.9 current creatinine is 0.56. Magnesium is 2.0. Multiple medical consultations including neurology, infectious disease, and pulmonary following. Chest x-ray today shows bilateral groundglass consolidation slightly worsened in the interval. Patient is fatigued although arousable and responding appropriately. Left-sided weakness continues. Patient continues on IV dexamethasone along with vitamin and zinc supplements continued on anti-coagulant in the form of Eliquis and Baricitinib. Patient was also maintained on sliding scale along with long acting insulin although sugars have been low and actually required one amp of dextrose for a sugar less than 50 and will discontinue long-acting and continue sliding scale as needed. 08/08/2021 Patient is seen and evaluated in follow-up currently placed on BiPAP as patient oxygen saturations continued to deteriorate and patient was more lethargic. Patient continues to be in the ICU being closely monitored. BiPAP FiO2 is 40%. Patient is continued on vitamin and zinc supplements along with baricitinib, IV dexamethasone and eliquis and will continue. Pulmonary following closely. Patient continues to be lethargic with continued poor oral intake an NG tube was placed and dietitian consulted to begin tube feeds. Recommend Accu-Cheks and use sliding scale as needed. Chest x-ray this morning shows persistent left greater than right bilateral multifocal and confluent opacification his consistent with COVID-19 and no significant change from previous. 08/09/2021 Patient is seen and evaluated this morning and having a brief episode of atrial fibrillation with RVR with a heart rate of 130's -150's and cardizem was ordered although IV lasix dose was given and oral metoprolol most recently and appears to have converted back in sinus rhythm. Patient was extremely restless and attempting to take bipap mask off. Patient was extremely anxious and expressing concern of having to have a bowel movement. Multiple medical consultations following. Medications being adjusted by cardiology and increasing metoprolol dose. Patient is maintained on eliquis and Baricitinib along with steroids and vitamin supplements. Continue tube feeds for nutritional support. 08/10/2021 Patient was seen and evaluated in follow-up this morning continues to be closely monitored in the ICU with multiple medical consultations including pulmonary graphic artist, infectious disease, and neurology has been asked to reevaluate the patient as patient continues to have intermittent periods of confusion but doesn't appear to be a change from previous. Patient is extremely lethargic and maintained on BiPAP although is arousable but continues to fatigue easily and follows sleep. Repeat CT of the brain has been ordered and pending. Patient continues on gentle IV hydration along with vitamin and zinc supplements and is maintained on oral anticoagulant along with IV dexamethasone. Patient is tolerating tube feedings via NG tube and blood sugars now mildly elevated and will continue sliding scale and Accu-Cheks before meals and at bedtime. White blood count is elevated at 24.4 and hemoglobin is 12.4, sodium remains low at 131 with a potassium of 3.9 and current creatinine is 0.59. LFTs within normal limits and pro calcitonin is 0.05. Chest x-ray this morning shows continued patchy peripheral bilateral Covid pneumonia with some slight improvement on the left. 08/11/2021 Patient is seen this morning continues to be closely monitored in the ICU. Patient was bipap dependent and recently being transitioned to high flow nasal cannula and currently on 6L HF and per nursing staff continuing to wean as tolerated. Patient was able to work with physical therapy today and continues to be extremely weak. Multiple medical consultations following. Per nursing staff, patient will continue in the ICU with possible downgrade to the selective unit in the next few days. Blood sugars have been increasing and will continue sliding scale and will add long acting. 08/12/2021 Patient seen in the ICU, he is an overflow patient. O2 requirements down to 5 L nasal cannula today, he is alert but confused. Sodium level coming up to 131, he continues on Decadron, blood sugars 162 this afternoon. Chest x-ray repeated today showing bilateral groundglass opacities, no pneumothorax or pleural effusion. Continues in Nico feedings, NG tube in place. No fevers, hemodyna mically stable 08/13/2021 Patient seen on reevaluation he is transferred out of the ICU and on the medical floor. He is more alert today, following commands able to move his extremities when prompted 2. He remains nothing by mouth, speech to reevaluate if he fails he may require PEG tube placement. He is currently on 5 L nasal cannula saturating above 90%, afebrile, hemodynamically stable 08/14/2021 Patient is seen and evaluated currently on 4 S. and has recently been placed back on airvo for acute respiratory distress and in a team was called. Patient was in A. fib RVR also and given a dose of IV push Lopressor. Patient is extremely lethargic and difficult to arouse today. Plan was for speech to reevaluate the patient today to wean off tube feeds and consult has been placed for possible PEG tube with general surgery. Repeat brain CT somewhat a previous exam with no acute changes noted. Chest x-ray shows some pulmonary edema and pleural fluid that is not significantly different from previous exam and clearing of soft tissue air on the left lateral chest wall compared to old exam and patient will receive a dose of IV Lasix. IV fluids discontinued. Labs: WBC 33.2, hemoglobin 12.7, sodium is 131, potassium 4.0, BUN 25, creatinine is 0.61, d-dimer is 14.04. Review of systems: Unable to obtain as patient is lethargic and minimally arousable fatigues extremely easily All medications have been reviewed Active Medications Acetaminophen (Acetaminophen Tab 325 Mg Tab) 650 mg PO Q4HR PRN PRN Reason: Fever and/ or Pain Apixaban (Apixaban 5 Mg Tab) 5 mg PO BID [facility]; Protocol Last Admin: 08/14/21 09:08 Dose: 5 mg Documented by: Ascorbic Acid (Ascorbic Acid 500 Mg Tab) 500 mg PO DAILY [facility] Last Admin: 08/14/21 09:08 Dose: 500 mg Documented by: Atorvastatin Calcium (Atorvastatin 40 Mg Tab) 40 mg PO HS [facility] Last Admin: 08/13/21 22:14 Dose: 40 mg Documented by: Calcium Carbonate/Glycine (Calcium Carbonate 500 Mg Chewable) 500 mg PO TID PRN PRN Reason: Heartburn Last Admin: 08/06/21 08:37 Dose: 500 mg Documented by: Cholecalciferol (Cholecalciferol 10 Mcg (400 Iu) Tablet) 10 mcg PO DAILY [facility] Last Admin: 08/14/21 09:08 Dose: 10 mcg Documented by: Dexamethasone Sodium Phosphate (Dexamethasone Sod Phosphate 10 Mg/Ml 1 Ml Vial) 6 mg IV DAILY [facility] Last Admin: 08/14/21 09:08 Dose: 6 mg Documented by: Piperacillin Sod/Tazobactam (Sod 3.375 gm/ Sodium Chloride) 100 mls @ 25 mls/hr IVPB Q8HR [facility] Insulin Aspart (Insulin Aspart (Novolog) 100 Unit/Ml Vial) 0 unit SQ Q6HR [facility]; Protocol Last Admin: 08/14/21 12:42 Dose: 2 unit Documented by: Insulin Detemir (Insulin Detemir (Levemir) 100 Unit/Ml Syr) 15 unit SQ HS [facility] Last Admin: 08/13/21 22:13 Dose: 15 unit Documented by: Metoprolol Tartrate (Metoprolol Tartrate 50 Mg Tab) 100 mg PO BID [facility] Last Admin: 08/14/21 09:08 Dose: 100 mg Documented by: Miscellaneous Information (Potassium Replacement Protocol 1 Each Misc) 1 each MISCELLANE DAILY PRN; Protocol PRN Reason: Per Protocol Miscellaneous Information (Magnesium Replacement Protocol 1 Each Misc) 1 each MISCELLANE DAILY PRN; Protocol PRN Reason: Per Protocol Pantoprazole Sodium (Pantoprazole 40 Mg/10 Ml Vial) 40 mg IVP BID [facility] Last Admin: 08/14/21 09:08 Dose: 40 mg Documented by: Sodium Chloride (Sodium Chloride 0.9% Flush 10 Ml Syringe) 10 ml IV Q4HR PRN PRN Reason: PICC Line Sodium Chloride (Sodium Chloride 0.9% Flush 10 Ml Syringe) 10 ml IV WEEKLY [facility] Last Admin: 08/09/21 09:44 Dose: 10 ml Documented by: Sodium Chloride (Sodium Chloride 0.9% Flush 10 Ml Syringe) 20 ml IV Q4HR PRN PRN Reason: PICC Line Zinc Sulfate (Zinc Sulfate 220 Mg Cap) 220 mg PO DAILY [facility] Last Admin: 08/14/21 09:08 Dose: 220 mg Documented by: PHYSICAL EXAMINATION: GENERAL: The patient is alert and oriented x1, extremely lethargic. Thin built. Continues on airvo since last night. Temp is 98.9, pulse is 93, resp are 20, blood pressure is 104/54, and 02 is 90% on airvo with a flow rate of 60 and FiO2 of 93% HEENT: Pupils are round and equally reacting to light. EOMI. No scleral icterus. No conjunctival pallor. Normocephalic, atraumatic. No pharyngeal erythema. No thyromegaly. NG tube noted CARDIOVASCULAR: S1 and S2 muffled. PULMONARY: Diffuse bilateral coarse rhonchi and scattered crackles noted with diminished breath sounds at the bases ABDOMEN: Soft, nontender, nondistended, normoactive bowel sounds. No palpable organomegaly. MUSCULOSKELETAL: No joint swelling or deformity. EXTREMITIES: No cyanosis, clubbing, or pedal edema. NEUROLOGICAL: Minimally arousable, extremely lethargic alert and oriented 1 and fatigued and falls asleep easily. Diffusely weak SKIN: No rashes. 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 Continue with w eaning 02 as tolerated. Continued on eliquis, IV dexamethasone, vitamin and zinc supplements. Patient has received Baricitinib. Recently taken off bipap and was placed on nasal cannula although respiratory status declined overnight and was placed on airvo. Pulmonary following closely. Neurosurgery consulted for PEG tube placement as patient mentation has worsened and extremely lethargic and shivani ble to perform speech evaluation. Patient is a high risk for aspiration pneumonia and started on empiric antibiotics in the form of IV Zosyn and white blood count is elevated. Will repeat chest x-ray along with labs in the a.m. Due to multiple complex medical issues, Prognosis is extremely guarded. Objective - Vital Signs Vital signs: Vital Signs Temp 98.9 F 08/14/21 09:03 Pulse 93 08/14/21 09:03 Resp 20 08/14/21 09:03 BP 104/54 08/14/21 09:03 Pulse Ox 99 08/14/21 12:23 Intake & Output 08/13/21 08/14/21 08/14/21 18:59 06:59 18:59 Intake Total 352 2000 Output Total 1900 701 Balance -1548 1299 Weight 60 kg Intake: Oral 1000 Tube Feeding 352 1000 Output: Urine 1900 700 Stool 1 Other: Voiding Method Indwelling Catheter Indwelling Catheter Indwelling Catheter # Bowel Movements 0 - Labs CBC & Chem 7: 08/14/21 04:45 08/14/21 04:45 Labs: Abnormal Lab Results - Last 24 Hours (Table) 08/13/21 08/13/21 08/14/21 Range/Units 16:36 23:20 03:30 WBC (3.8-10.6) k/uL Hgb (13.0-17.5) gm/dL Hct (39.0-53.0) % Neutrophils # (1.3-7.7) k/uL Lymphocytes # (1.0-4.8) k/uL D-Dimer (<0.60) mg/L FEU Sodium (137-145) mmol/L Chloride (98-107) mmol/L BUN (9-20) mg/dL Creatinine (0.66-1.25) mg/dL Glucose (74-99) mg/dL POC Glucose (mg/dL) 281 H 298 H 302 H (75-99) mg/dL ALT (4-49) U/L Alkaline Phosphatase (38-126) U/L Total Protein (6.3-8.2) g/dL Albumin (3.5-5.0) g/dL 08/14/21 08/14/21 08/14/21 Range/Units 03:32 04:45 04:45 WBC 33.2 H (3.8-10.6) k/uL Hgb 12.7 L (13.0-17.5) gm/dL Hct 38.7 L (39.0-53.0) % Neutrophils # 31.8 H (1.3-7.7) k/uL Lymphocytes # 0.7 L (1.0-4.8) k/uL D-Dimer (<0.60) mg/L FEU Sodium 131 L (137-145) mmol/L Chloride 95 L (98-107) mmol/L BUN 25 H (9-20) mg/dL Creatinine 0.61 L (0.66-1.25) mg/dL Glucose 188 H (74-99) mg/dL POC Glucose (mg/dL) 257 H (75-99) mg/dL ALT 57 H (4-49) U/L Alkaline Phosphatase 229 H (38-126) U/L Total Protein 5.6 L (6.3-8.2) g/dL Albumin 2.5 L (3.5-5.0) g/dL 08/14/21 08/14/21 Range/Units 04:45 11:30 WBC (3.8-10.6) k/uL Hgb (13.0-17.5) gm/dL Hct (39.0-53.0) % Neutrophils # (1.3-7.7) k/uL Lymphocytes # (1.0-4.8) k/uL D-Dimer 14.04 H (<0.60) mg/L FEU Sodium (137-145) mmol/L Chloride (98-107) mmol/L BUN (9-20) mg/dL Creatinine (0.66-1.25) mg/dL Glucose (74-99) mg/dL POC Glucose (mg/dL) 171 H (75-99) mg/dL ALT (4-49) U/L Alkaline Phosphatase (38-126) U/L Total Protein (6.3-8.2) g/dL Albumin (3.5-5.0) g/dL
[2021-08-14 16:39] LABS: Glucose,Whole Blood 242 mg/dL (75-99)
[2021-08-14] MEDS: DILTIAZEM 125 MG in SODIUM CHLORIDE 0.9% 100 ML IV SCH (18:34)
[2021-08-14 18:37] LABS: Glucose,Whole Blood 221 mg/dL (75-99)
[2021-08-14] MEDS: PIPERACILLIN-TAZOBACTAM 3.375 GM in SODIUM CHLORIDE 0.9% 100 ML IVPB SCH (18:45)
[2021-08-14 18:58] LABS: ABG Base Excess 4.2 mmol/L; ABG HCO3 28 mmol/L (21-25); ABG Oxygen Saturation 89.7 % (94-97); ABG PCO2 36 mmHg (35-45); ABG PH 7.49 (7.35-7.45); ABG TCO2 29 mmol/L (19-24); Allen Test Performed? Yes
[2021-08-14 19:06] LABS: ABG PO2 53 mmHg (83-108)
--- NOTE | 2021-08-14 19:13 | XR ---
EXAMINATION TYPE: XR chest 1V portable DATE OF EXAM: 08/14/2021 COMPARISON: 08/14/2021 HISTORY: Fecal debris TECHNIQUE: Single frontal view of the chest is obtained. FINDINGS: Bilateral infiltrate and pleural effusion. Postoperative change overlying the cervical spi ne. NG tube noted. No overt failure. Left-sided PICC line with the tip overlying the right atrium. Di ffuse osteopenia with arthropathy of the shoulders. IMPRESSION: Bilateral infiltrates with pleural effusion. Similar in appearance to prior exam.
[2021-08-14 19:28] LABS: Glucose,Whole Blood 175 mg/dL (75-99)
[2021-08-14] MEDS: ATORVASTATIN 40 MG TAB PO SCH (20:18)
[2021-08-14] MEDS: ACETAMINOPHEN TAB 325 MG TAB PO PRN (20:19)
[2021-08-14] MEDS: NOREPINEPHRINE 4 MG in SODIUM CHLORIDE 0.9% 250 ML IV SCH (23:55)
[2021-08-15 00:03] LABS: Glucose,Whole Blood 52 mg/dL (75-99)
[2021-08-15] MEDS ORDERED: DEXTROSE 50% SYRINGE 50 ML IVP ONE (00:03)
[2021-08-15 00:18] LABS: Glucose,Whole Blood 227 mg/dL (75-99)
[2021-08-15] MEDS: INSULIN DETEMIR (LEVEMIR) 100 UNIT/ML SYR SQ SCH ×2 (00:19→20:57)
[2021-08-15] MEDS: INSULIN ASPART (NovoLOG) 100 UNIT/ML VIAL SQ SCH ×5 (00:20→23:36)
[2021-08-15] MEDS: PIPERACILLIN-TAZOBACTAM 3.375 GM in SODIUM CHLORIDE 0.9% 100 ML IVPB SCH ×4 (02:01→23:36)
[2021-08-15] MEDS: NOREPINEPHRINE 4 MG in SODIUM CHLORIDE 0.9% 250 ML IV SCH (03:53)
--- NOTE | 2021-08-15 05:06 | XR ---
EXAMINATION TYPE: XR chest 1V portable DATE OF EXAM: 08/15/2021 CLINICAL HISTORY: Difficulty breathing progress study. COVID. TECHNIQUE: Single AP portable semiupright view of the chest is obtained. COMPARISON: Chest x-ray from one day earlier and older studies. FINDINGS: Stable oral gastric tube and left sided PICC line. Postsurgical change of cervical spine i s partially imaged. Cardiac silhouette size is stable and within normal limits without focal scleroti c change aortic knob. Diffuse reticular increased opacities bilaterally remain present greatest in th e periphery. IMPRESSION: Bilateral peripheral increased opacities consistent with covid-19 infection are redemonst rated. No significant change from one day earlier.
[2021-08-15 06:08] LABS: Basophils % (A) 0 %; Eosinophils % (A) 0 %; HCT 30.9 % (39.0-53.0); HGB 10.4 gm/dL (13.0-17.5); Lymphocytes # (A) 0.6 k/uL (1.0-4.8); Lymphocytes % (A) 2 %; MCH 29.6 pg (25.0-35.0); MCHC 33.6 g/dL (31.0-37.0); MCV 87.9 fL (80.0-100.0); Mean Platelet Volume 8.3; Monocytes # (A) 0.7 k/uL (0-1.0); Monocytes % (A) 2 %; Neutrophils # (A) 28.4 k/uL (1.3-7.7); Neutrophils % (A) 95 %; Platelet Count 151 k/uL (150-450); RBC 3.52 m/uL (4.30-5.90); RDW 14.9 % (11.5-15.5); WBC 29.8 k/uL (3.8-10.6)
[2021-08-15 06:14] LABS: ALT 66 U/L (4-49); AST 74 U/L (17-59); African American GFR (CKD) >90 (>60 ml/min/1.73 sqM); Albumin 2.1 g/dL (3.5-5.0); Alkaline Phosphatase 199 U/L (38-126); Anion Gap 7 mmol/L; Blood Urea Nitrogen 35 mg/dL (9-20); Calcium 7.4 mg/dL (8.4-10.2); Carbon Dioxide 27 mmol/L (22-30); Chloride 100 mmol/L (98-107); Creatine Kinase 79 U/L (55-170); Glucose 242 mg/dL (74-99); LDH 1462 U/L (313-618); Non-African American GFR(CKD) >90 (>60 ml/min/1.73 sqM); Potassium 3.7 mmol/L (3.5-5.1); Sodium 134 mmol/L (137-145); Total Bilirubin 0.8 mg/dL (0.2-1.3); Total Protein 4.7 g/dL (6.3-8.2)
[2021-08-15 06:35] LABS: C Reactive Protein 19.9 mg/dL (<1.0)
[2021-08-15] MEDS ORDERED: POTASSIUM CHLORIDE 20 MEQ in WATER FOR INJECTION 1 100ML.BAG IVPB STA (06:55)
[2021-08-15] MEDS: APIXABAN 5 MG TAB PO SCH ×2 (08:14→20:56)
[2021-08-15] MEDS: PANTOPRAZOLE 40 MG/10 ML VIAL IVP SCH ×2 (08:14→20:56)
[2021-08-15] MEDS: ASCORBIC ACID 500 MG TAB PO SCH (08:14)
[2021-08-15] MEDS: DEXAMETHASONE SOD PHOSPHATE 10 MG/ML 1 ML VIAL IV SCH (08:14)
[2021-08-15] MEDS: ZINC SULFATE 220 MG CAP PO SCH (08:14)
[2021-08-15] MEDS: CHOLECALCIFEROL 10 MCG (400 IU) TABLET PO SCH (09:00)
[2021-08-15] MEDS: SODIUM CHLORIDE 0.9% 1,000 ML IV SCH ×2 (09:01→21:04)
[2021-08-15] MEDS: METOPROLOL TARTRATE 50 MG TAB PO SCH ×2 (09:01→20:56)
--- NOTE | 2021-08-15 09:35 | P.PN ---
Subjective Progress Note Date: 08/15/21 Principal diagnosis: COVID 19 On 08/13/2021 patient seen in follow-up on medical surgical floor. He is lethargic on today's exam, but does arouse to voice, he answers simple ques tions, he follows simple command, appears very weak, but breathing comfortably, he is currently on 5 L of oxygen with pulse ox of 92-97%, his been afebrile, doesn't appear to be in any acute distress, however his head is laying down on his shoulder, does not seem to be able to hold up his head erect. He knew the place and is oriented to person, but he thinks the president is Shlomo, and after a couple of hints he did say that the president is Etienne. His NG tube remains in place, and he has tube feedings infusing, he has been tolerating tube feedings well, she remains on Decadron 6 mg daily, he is on Eliquis 5 mg twice daily, he continues on IV fluids with 0.9 at 75. His chest x-ray from yesterday shows bilateral groundglass opacities within the lungs, NG tube is in appropriate position, no evident pneumothorax or pleural effusion, and there is a left-sided PICC line in place. Today's labs have been reviewed, his white blood cell count is improving and is down to 18.6, hemoglobin is 11.6, his sodium is improving and is up to 133, the rest of electrolytes were within normal limits, BUN is 21 creatinine 0.62, his ALT is up slightly at 53, AST was 51, alkaline phosphatase is relatively stable at 191 up slightly from 182, and his last pro-calcitonin that was done on 08/10/2021 was negative at 0.05. Patient has had no fever or chills. Patient has been nothing by mouth in view of his hypoxia, BiPAP dependence, recent stroke this admission, and overall generalized weakness and high aspiration risk. We'll obtain speech evaluation On 08/14/2021 patient seen in follow-up on medical surgical floor, he is more lethargic on today's exam, he requires repeated for most stipulation, and tactile stimulation to open his eyes, does not appear to be in any acute distress, rapid response team was called last night, for worsening hypoxia, tachypnea, and his heart rate was in the 130s, A. fib with RVR, his blood pressure was elevated at greater than 190 systolic. Patient was noted to have oxygen saturations in the low 80s on the 100% non-rebreather. He did have a temp of 101.5F, chest x-ray was repeated showing pulmonary edema and pleural fluid is not significantly different from his last exam. Patient was placed on Airvo on which she remains, initially at 60 L an FiO2 of 93%, his pulse ox did improve. Subsequently his FiO2 was dropped down to 80%, his pulse ox is still 96-99%. Today's labs show increased white blood cell, which is currently at 33.2, hemoglobin of 12.7, d-dimer is 14.04, sodium is 131, potassium is 4.0, chloride is 95, BUN is 25 creatinine 0.61. Remains on Decadron 6 mg daily, she was given a dose of IV push Lopressor, he continues on Lopressor 100 mg by mouth twice daily. His mentation remains lethargic, and patient is an increased risk for aspiration. He was supposed to be seen by speech therapy today and have a swallow evaluation to evaluate for potential ability to eat by mouth. It was suspected that he will need a PEG tube. He still has the NG tube in his nose, and receiving tube feedings with vital AF at rate of 57. On 08/15/2021 patient seen in follow-up in intensive care unit where she was transferred last night. Patient continued to desaturate on the floor, and required to be placed on BiPAP support, currently with pressures of 16 and 10 and FiO2 of 90%. Remains extremely lethargic. Afebrile, and not requiring any vasopressor support, he is on 0.9 normal significantly to 20 ML per hour, he has not been able to complete swallow evaluation related to his extremely poor mental status, which seems to be worsening. Repeat brain CT yesterday showed a cerebral bilaterally, no acute intracranial abnormality, and old right thalamic lacunar infarct. No change from previous CT of the brain. Yesterday we empirically started the patient on Zosyn for possibility of aspiration related pneumonitis. This white blood cell count is slightly improved today, however still elevated at 29.8, hemoglobin is 10.4, d-dimer is down to 3.8, sodium is 134, potassium 3.7, chloride is 100, B1 is 35, creatinine 0.71, LDH is down to 1462, improving, CRP is up to 19.9. Patient continues on Eliquis, currently remains in sinus mechanism with a controlled rate, yesterday during episode of worsening dyspnea and hypoxia, he was requiring Cardizem infusion for rate control, Cardizem drip is currently discontinued. Addition patient continues on dexamethasone 6 mg daily, COVID vitamins. Today's chest x-ray shows bilateral peripheral increased opacities consistent with COVID-19 infection. No significant change from one day earlier, patient's spouse was updated on his condition, and the decision was made not to proceed with intubation and placement on mechanical ventilator should his condition continued to deteriorate. Objective - Vital Signs Vital signs: Vital Signs Temp 97.6 F 08/15/21 08:00 Pulse 62 08/15/21 09:00 Resp 21 08/15/21 09:00 BP 108/56 08/15/21 09:00 Pulse Ox 97 08/15/21 09:00 Intake & Output 08/14/21 08/15/21 08/15/21 18:59 06:59 18:59 Intake Total 767.999 351 Output Total 900 1405 150 Balance -900 -637.001 201 Weight 60 kg 59.4 kg Intake: IV 140 60 0.9 @ 20mL/hr 140 60 Intake, IV Titration 168.999 Amount Norepinephrine 4 mg In 68.999 Sodium Chloride 0.9% 250 ml @ 0.05 MCG/KG/MIN 11. 43 mls/hr IV .[id number] [facility] Rx#:[id number] Piperacillin-Tazobactam 3 100 .375 gm In Sodium Chloride 0.9% 100 ml @ 25 mls/hr IVPB Q8HR [facility] Rx# :[id number] Tube Feeding 399 171 Other 60 120 Output: Urine 900 1405 150 Other: Voiding Method Indwelling Catheter Indwelling Catheter - Exam GENERAL EXAM:lethargic, 75-year-old patient is currently on BiPAP support with pressures of 16/10 and FiO2 of 90%, and FiO2 is being cut back to 75%, patient is extremely lethargic. HEAD: Normocephalic/atraumatic. EYES: Normal reaction of pupils, equal size. Conjunctiva pink, sclera white. NOSE: Clear with pink turbinates.NG tube is in place, patient is receiving tube feedings THROAT: No erythema or exudates. NECK: No masses, no JVD, no thyroid enlargement, no adenopathy. CHEST: No chest wall deformity. Symmetrical expansion. LUNGS: Equal air entry with no crackles, wheeze, rhonchi or dullness. CVS: Regular rate and rhythm, normal S1 and S2, no gallops, no murmurs, no rubs ABDOMEN: Soft, nontender. No hepatosplenomegaly, normal bowel sounds, no guarding or rigidity. EXTREMITIES: No clubbing, no edema, no cyanosis, 2+ pulses and upper and lower extremities. MUSCULOSKELETAL: Muscle strength and tone weak SPINE: No scoliosis or deformity SKIN: No rashes CENTRAL NERVOUS SYSTEM: Lethargic. Left sided weakness with weaker left experiential therapist - Labs CBC & Chem 7: 08/15/21 05:40 08/15/21 05:40 Labs: Abnormal Lab Results - Last 24 Hours (Table) 08/14/21 08/14/21 08/14/21 Range/Units 11:30 16:36 18:35 WBC (3.8-10.6) k/uL RBC (4.30-5.90) m/uL Hgb (13.0-17.5) gm/dL Hct (39.0-53.0) % Neutrophils # (1.3-7.7) k/uL Lymphocytes # (1.0-4.8) k/uL D-Dimer (<0.60) mg/L FEU ABG pH (7.35-7.45) ABG pO2 (83-108) mmHg ABG HCO3 (21-25) mmol/L ABG Total CO2 (19-24) mmol/L ABG O2 Saturation (94-97) % Sodium (137-145) mmol/L BUN (9-20) mg/dL Glucose (74-99) mg/dL POC Glucose (mg/dL) 171 H 242 H 221 H (75-99) mg/dL Calcium (8.4-10.2) mg/dL AST (17-59) U/L ALT (4-49) U/L Alkaline Phosphatase (38-126) U/L Lactate Dehydrogenase (313-618) U/L C-Reactive Protein (<1.0) mg/dL Total Protein (6.3-8.2) g/dL Albumin (3.5-5.0) g/dL 08/14/21 08/14/21 08/15/21 Range/Units 18:56 19:26 00:02 WBC (3.8-10.6) k/uL RBC (4.30-5.90) m/uL Hgb (13.0-17.5) gm/dL Hct (39.0-53.0) % Neutrophils # (1.3-7.7) k/uL Lymphocytes # (1.0-4.8) k/uL D-Dimer (<0.60) mg/L FEU ABG pH 7.49 H (7.35-7.45) ABG pO2 53 L* (83-108) mmHg ABG HCO3 28 H (21-25) mmol/L ABG Total CO2 29 H (19-24) mmol/L ABG O2 Saturation 89.7 L (94-97) % Sodium (137-145) mmol/L BUN (9-20) mg/dL Glucose (74-99) mg/dL POC Glucose (mg/dL) 175 H 52 L (75-99) mg/dL Calcium (8.4-10.2) mg/dL AST (17-59) U/L ALT (4-49) U/L Alkaline Phosphatase (38-126) U/L Lactate Dehydrogenase (313-618) U/L C-Reactive Protein (<1.0) mg/dL Total Protein (6.3-8.2) g/dL Albumin (3.5-5.0) g/dL 08/15/21 08/15/21 08/15/21 Range/Units 00:16 05:40 05:40 WBC 29.8 H (3.8-10.6) k/uL RBC 3.52 L (4.30-5.90) m/uL Hgb 10.4 L (13.0-17.5) gm/dL Hct 30.9 L (39.0-53.0) % Neutrophils # 28.4 H (1.3-7.7) k/uL Lymphocytes # 0.6 L (1.0-4.8) k/uL D-Dimer 3.84 H (<0.60) mg/L FEU ABG pH (7.35-7.45) ABG pO2 (83-108) mmHg ABG HCO3 (21-25) mmol/L ABG Total CO2 (19-24) mmol/L ABG O2 Saturation (94-97) % Sodium (137-145) mmol/L BUN (9-20) mg/dL Glucose (74-99) mg/dL POC Glucose (mg/dL) 227 H (75-99) mg/dL Calcium (8.4-10.2) mg/dL AST (17-59) U/L ALT (4-49) U/L Alkaline Phosphatase (38-126) U/L Lactate Dehydrogenase (313-618) U/L C-Reactive Protein (<1.0) mg/dL Total Protein (6.3-8.2) g/dL Albumin (3.5-5.0) g/dL 08/15/21 Range/Units 05:40 WBC (3.8-10.6) k/uL RBC (4.30-5.90) m/uL Hgb (13.0-17.5) gm/dL Hct (39.0-53.0) % Neutrophils # (1.3-7.7) k/uL Lymphocytes # (1.0-4.8) k/uL D-Dimer (<0.60) mg/L FEU ABG pH (7.35-7.45) ABG pO2 (83-108) mmHg ABG HCO3 (21-25) mmol/L ABG Total CO2 (19-24) mmol/L ABG O2 Saturation (94-97) % Sodium 134 L (137-145) mmol/L BUN 35 H (9-20) mg/dL Glucose 242 H (74-99) mg/dL POC Glucose (mg/dL) (75-99) mg/dL Calcium 7.4 L (8.4-10.2) mg/dL AST 74 H (17-59) U/L ALT 66 H (4-49) U/L Alkaline Phosphatase 199 H (38-126) U/L Lactate Dehydrogenase 1462 H (313-618) U/L C-Reactive Protein 19.9 H (<1.0) mg/dL Total Protein 4.7 L (6.3-8.2) g/dL Albumin 2.1 L (3.5-5.0) g/dL Assessment and Plan Plan: #1. Acute hypoxic respiratory failure secondary to COVID-19 pneumonia, patient was on BiPAP support, his oxygenation had improved, however patient is having waxing and waning improving and worsening oxygenation issues related to suspected aspiration. On 08/14/2021 patient had to be transferred back to the intensive care unit for worsening hypoxia and placed on BiPAP support with pressures of 16 and 10 and FiO2 of 100% #2. 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 #4. Left-sided weakness related to recent history of embolic CVA during this admission #5. Chronic atrial fibrillation, currently in sinus mechanism, patient has been on Eliquis #6. Elevated inflammatory markers secondary to COVID-19 pneumonia, and they are currently improving #7. Type 2 diabetes mellitus #8. Dyslipidemia #9. Worsening leukocytosis with negative procalcitonin level, we'll repeat a pro-calcitonin level #10. Overall general medical debility from COVID-19 pneumonia, and prolonged hospitalization Plan: Continue current medical treatment Continue with BiPAP support, wean FiO2 to keep O2 sats ration 0 above 90% Patient's level of consciousness is still quite lethargic, repeat brain CT showed no acute changes Not requiring vasopressor support at this time, we will increase IV fluids to 75 ML per hour Continue tube feedings per NG tube Continue aspiration precautions Continue Zosyn, Procalcitonin level is pending His spouse was updated and she wishes no intubation should his condition continued to deteriorate Continue supportive medical treatment Overall prognosis is extremely poor If the spouse is agreeable, will obtain surgical evaluation for PEG tube placement. I performed a history & physical examination of the patient and discussed their management with my nurse practitioner, Emily Tovar. I reviewed the nurse practitioner's note and agree with the documented findings and plan of care. Lung sounds are positive for diminished breath sounds throughout the lung [place]. The findings and the impression was discussed with the patient. I attest to the documentation by the nurse practitioner. Time with Patient: Greater than 30
--- NOTE | 2021-08-15 11:45 | PN ---
PROGRESS NOTE This is a 75-year-old gentleman who was admitted to hospital with coronavirus infection with pneumonia and respiratory failure. Cardiology had been consulted because of atrial fibrillation. We have last seen this patient nearly 2 weeks ago. Last night he went into atrial fibrillation with rapid ventricular rate and was started on intravenous Cardizem. He became hypotensive and subsequently converted to sinus rhythm. At the time of my evaluation this morning, patient remains in sinus rhythm. Blood pressure is 124/64. He remains intubated on vent. I have not done any physical exam because of COVID-related isolation. Labs show that the hemoglobin is 10.4. Blood gases reveal a pH of 7.4, PO2 of 53. O2 saturation is 100%. Creatinine is 0.7. Potassium is 3.7. ASSESSMENT: 1. Paroxysmal atrial fibrillation. 2. COVID-related complications, including respiratory failure. PLAN: Patient will continue the Eliquis that he is on along with metoprolol. Please decrease the dose of Lopressor to 50 b.i.d. MMROBERTO / DAYANAN: [id number] /
[2021-08-15 11:49] LABS: Glucose,Whole Blood 262 mg/dL (75-99)
--- NOTE | 2021-08-15 16:13 | P.PN ---
Subjective Progress Note Date: 08/15/21 Patient is a 75 -year-old pleasant male was transferred from a outside hospital for atrial fibrillation with rapid ventricular rate. Patient is presently on therapeutic dose of Lovenox. Also has highly elevated INR. His baseline creatinine is unknown but his present creatinine is around the 0.66, patient is receiving half-normal saline at 75 mL per hour patient is also on Remdesivir, presently on 15 L of oxygen, CT of the chest did not show any pulmonary embolism but did show diffuse infiltrate patient was having symptoms for about 4 days patient was unable to provide much of history to me patient is too tired and weak. Patient is not tolerating any by mouth medications at this time because of which patient was started on IV Cardizem patient usually takes metoprolol 25 twice a day. Patient doesn't have any history of congestive heart failure. Patient was started on Decadron as well. Patient has highly elevated d-dimer. 08/01/2021 Patient is seen in follow-up continues to be closely monitored in the ICU. Patient is extremely lethargic although is arousable and intermittently resp onding appropriately to questions and commands. Patient continues to have delayed response and altered mental status and CT of the brain was ordered. Neurology has been consulted and pulmonary along with urology following closely. She continues on IV heparin along with IV Cardizem. white blood count is 14.1, hemoglobin is stable at 16.1, d-dimer is above 34.10, sodium is 141 with a potassium of 4.5 and current creatinine is 0.61. LDH is 30-55 and CRP is 6.3. TSH is 0.112 and free T4 is 4.06. patient is maintained on 15 L high flow nasal cannula along with occasional intermittent nonrebreather. Patient is afebrile. 08/02/2021 Patient is seen in follow up this morning and is being closely monitored in the ICU with multiple medical consultations following including pulmonary, infectiou s disease, cardiology, and neurology. CT of the brain recommending MRI and this is ordered and pending. Patient is on 13L HF nasal cannula. Mentation slowly improving and answering questions appropriately. Patient continues to be extremely weak and fatigues easily. Cardiology planning to transition cardizem to oral and possibly starting eliquis. 08/03/2021 Patient is seen and evaluated in follow-up this morning and patient continues to improve although continues to be extremely weak and fatigued. Multiple medical consultations following an neurology recommending BARBARA although was reviewed by cardiology and no plans for BARBARA at this time as MRI along with CT confirms embolic stroke with MRI showing a few scattered areas of restricted diffusion in the inferior cerebellar hemispheres bilaterally with scattered areas of restricted diffusion present in the cerebellum, occipital lobes, as well as bilateral parietal lobes. Patient continued on subcutaneous heparin with discussion of possibly starting Eliquis in the next 2 days. Patient has been started on Brilinta an neurology is following closely. Speech has evaluated the patient and recommending continuing the patient with nothing by mouth except medications as the swallow eval was not able to be completed due to extreme fatigue and lethargy. Speech will reevaluate the patient once more alert and awake. White blood count today is 17.6 with a hemoglobin of 14.6, d-dimer is elevated at 27.78, sodium is 135 with a potassium of 3.6, BUN is 33 and creatinine is 0.59. Blood sugars are being closely monitored. Repeat x-ray and labs along with inflammatory markers in the a.m. Continuing to wean as tolerated and patient is maintained on 9 L high flow and maintaining oxygen saturations of 97%. Patient with atrial fibrillation currently rate controlled with metoprolol and cardiology is following. 08/04/2021 Patient is seen in follow-up this morning continues to be in the ICU and continues to drift often fall asleep easily although mentation has improved. Patient states the year as 1990 but also states he knows that is wrong and states he is currently in the hospital for Covid but was unaware of any recent stroke. Right side public policy analyst strength 4/5 improving although patient is unable to completely lift extremity and left side public policy analyst strength continues to be weak 2/5 and completely unable to lift this extremity. Multiple medical consultations including neurology, cardiology, musculoskeletal physician along with infectious disease following closely. Patient being resumed on Eliquis and Brilinta has been discontinued. Chest x-ray today shows diffuse mild infiltrates greater on the left that can be compatible with atypical pneumonia. Awaiting repeat swallow eval today with the possibility of TPN for enteral nutrition as patient has been nothing by mouth. Patient continues on 11 L high flow and recommend to wean as tolerated. White blood count today is 27.3 with a hemoglobin of 15.6, d-dimer is 24.3, sodium is 131 with a potassium of 4.9, BUN is 26 and creatinine is 0.59. CRP is 4.3. Patient continues on baricitinib along with dexamethasone and vitamin and zinc supplements and will continue. 08/05/2021 Patient is evaluated today in the ICU, he is maintained on a BiPAP at the time of my assessment. Plan is to titrate oxygen as needed. Chest x-ray today reveals persistent left greater than right bilateral multifocal opacities. Labs are reviewed, White blood cell count 25.2. His d-dimer today is elevated at 29.09 which is slightly increased. LDH is 2286, CRP 5.8, pro calcitonin 0.07. Sodium today is 131. Vital signs include blood pressure 113/62. Respirations are 20s. Patient has remained afebrile. Swallow evaluation was conducted again today for follow-up for dysphagia intervention, that recommendations are for dysphagia 1. With honey thick liquid, supervision with basic needs. Patient n eeds one-to-one feeding with cues to swallow. Patient continues on baricitinib along with dexamethasone and vitamin and zinc supplements and will continue. Patient was evaluated by neurology today who feels as increasing right-sided weakness. Brain CT of the head initially reveals embolic ischemic insults. A repeat brain CT has been ordered to compare. We will hold off any BARBARA at this time per neurology and cardiology recommendations. 08/06/2021 Pt is alert and oriented x 3 at the time of my examination. He reports breathing better, able to take a deep breath. He is now on a 5L HF cannula with oxygen saturations in the mid 90s. BP today is 122/76, HR 88, afebrile. Labs are reviewed today, include a WBC of 24.6, sodium of 132, B of 24, Cr 0.57. Inflammatory markers continue to be elevated. Neurology has signed off today. Pt was able to lift left upper extremity off the bed however drifted and touched the bed after 2 seconds, his hand grasp was unequal with left weaker than right. A repeat brain CT was ordered for increasing upper extremity weakness. 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 There is no acute bleed. Patient continues on baricitinib, dexamethasone, zinc, and vitamins and will continue. 08/07/2021 Patient was seen and evaluated in follow-up as morning continues to be closely monitored in the ICU. Patient stating his shortness of breath mildly worsened and was on 5 L and now 7 L high flow. White blood count elevated at 25.4 and hemoglobin is stable at 14.4, sodium is 132 with a potassium of 3.9 current creatinine is 0.56. Magnesium is 2.0. Multiple medical consultations including neurology, infectious disease, and pulmonary following. Chest x-ray today shows bilateral groundglass consolidation slightly worsened in the interval. Patient is fatigued although arousable and responding appropriately. Left-sided weakness continues. Patient continues on IV dexamethasone along with vitamin and zinc supplements continued on anti-coagulant in the form of Eliquis and Baricitinib. Patient was also maintained on sliding scale along with long acting insulin although sugars have been low and actually required one amp of dextrose for a sugar less than 50 and will discontinue long-acting and continue sliding scale as needed. 08/08/2021 Patient is seen and evaluated in follow-up currently placed on BiPAP as patient oxygen saturations continued to deteriorate and patient was more lethargic. Patient continues to be in the ICU being closely monitored. BiPAP FiO2 is 40%. Patient is continued on vitamin and zinc supplements along with baricitinib, IV dexamethasone and eliquis and will continue. Pulmonary following closely. Patient continues to be lethargic with continued poor oral intake an NG tube was placed and dietitian consulted to begin tube feeds. Recommend Accu-Cheks and use sliding scale as needed. Chest x-ray this morning shows persistent left greater than right bilateral multifocal and confluent opacification his consistent with COVID-19 and no significant change from previous. 08/09/2021 Patient is seen and evaluated this morning and having a brief episode of atrial fibrillation with RVR with a heart rate of 130's -150's and cardizem was ordered although IV lasix dose was given and oral metoprolol most recently and appears to have converted back in sinus rhythm. Patient was extremely restless and attempting to take bipap mask off. Patient was extremely anxious and expressing concern of having to have a bowel movement. Multiple medical consultations following. Medications being adjusted by cardiology and increasing metoprolol dose. Patient is maintained on eliquis and Baricitinib along with steroids and vitamin supplements. Continue tube feeds for nutritional support. 08/10/2021 Patient was seen and evaluated in follow-up this morning continues to be closely monitored in the ICU with multiple medical consultations including pulmonary musculoskeletal physician, infectious disease, and neurology has been asked to reevaluate the patient as patient continues to have intermittent periods of confusion but doesn't appear to be a change from previous. Patient is extremely lethargic and maintained on BiPAP although is arousable but continues to fatigue easily and follows sleep. Repeat CT of the brain has been ordered and pending. Patient continues on gentle IV hydration along with vitamin and zinc supplements and is maintained on oral anticoagulant along with IV dexamethasone. Patient is tolerating tube feedings via NG tube and blood sugars now mildly elevated and will continue sliding scale and Accu-Cheks before meals and at bedtime. White blood count is elevated at 24.4 and hemoglobin is 12.4, sodium remains low at 131 with a potassium of 3.9 and current creatinine is 0.59. LFTs within normal limits and pro calcitonin is 0.05. Chest x-ray this morning shows continued patchy peripheral bilateral Covid pneumonia with some slight improvement on the left. 08/11/2021 Patient is seen this morning continues to be closely monitored in the ICU. Patient was bipap dependent and recently being transitioned to high flow nasal cannula and currently on 6L HF and per nursing staff continuing to wean as tolerated. Patient was able to work with physical therapy today and continues to be extremely weak. Multiple medical consultations following. Per nursing staff, patient will continue in the ICU with possible downgrade to the selective unit in the next few days. Blood sugars have been increasing and will continue sliding scale and will add long acting. 08/12/2021 Patient seen in the ICU, he is an overflow patient. O2 requirements down to 5 L nasal cannula today, he is alert but confused. Sodium level coming up to 131, he continues on Decadron, blood sugars 162 this afternoon. Chest x-ray repeated today showing bilateral groundglass opacities, no pneumothorax or pleural effusion. Continues in Nico feedings, NG tube in place. No fevers, hemodyna mically stable 08/13/2021 Patient seen on reevaluation he is transferred out of the ICU and on the medical floor. He is more alert today, following commands able to move his extremities when prompted 2. He remains nothing by mouth, speech to reevaluate if he fails he may require PEG tube placement. He is currently on 5 L nasal cannula saturating above 90%, afebrile, hemodynamically stable 08/14/2021 Patient is seen and evaluated currently on 4 S. and has recently been placed back on airvo for acute respiratory distress and in a team was called. Patient was in A. fib RVR also and given a dose of IV push Lopressor. Patient is extremely lethargic and difficult to arouse today. Plan was for speech to reevaluate the patient today to wean off tube feeds and consult has been placed for possible PEG tube with general surgery. Repeat brain CT somewhat a previous exam with no acute changes noted. Chest x-ray shows some pulmonary edema and pleural fluid that is not significantly different from previous exam and clearing of soft tissue air on the left lateral chest wall compared to old exam and patient will receive a dose of IV Lasix. IV fluids discontinued. 08/15/2021 Patient is seen in follow-up this morning recently brought back to the ICU as respiratory status deteriorated and patient is back on BiPAP with an FiO2 of 60%. Patient continues to be extremely lethargic and minimally arousable and continued on tube feeds. Patient's blood pressures have been low and maintained on IV hydration. Multiple medical consultations following including pulmonary musculoskeletal physician and cardiology. Patient continued on IV dexamethasone along with oral anticoagulant and vitamin and zinc supplements and most recently started on IV Zosyn. Recommend to continue monitoring blood sugars closely as there was an episode of hypoglycemia last night and continued on sliding scale along with l lester-acting. Infectious disease also following. Chest x-ray today shows bilateral peripheral increased opacification is consistent with COVID-19 infection with no significant change from previous day. Family wishes for patient to remain full code with no intubation and will attempt again to address CODE STATUS as prognosis remains extremely guarded and poor. Patient also placed back on Cardizem drip for atrial fibrillation with RVR. Labs: WBC 29.8, hemoglobin 10.4, sodium is 134, potassium 3.7, BUN 35, creatinine is 0.71, d-dimer is 3.84, LDH is 1462, alk phos is 199 and LFTs mildly elevated and CRP is trending up at 19.9. Review of systems: Unable to obtain as patient is lethargic and minimally arousable fatigues extremely easily All medications have been reviewed Active Medications Acetaminophen (Acetaminophen Tab 325 Mg Tab) 650 mg PO Q4HR PRN PRN Reason: Fever and/ or Pain Last Admin: 08/14/21 20:19 Dose: 650 mg Documented by: Apixaban (Apixaban 5 Mg Tab) 5 mg PO BID [facility]; Protocol Last Admin: 08/15/21 08:14 Dose: 5 mg Documented by: Ascorbic Acid (Ascorbic Acid 500 Mg Tab) 500 mg PO DAILY [facility] Last Admin: 08/15/21 08:14 Dose: 500 mg Documented by: Atorvastatin Calcium (Atorvastatin 40 Mg Tab) 40 mg PO HS [facility] Last Admin: 08/14/21 20:18 Dose: 40 mg Documented by: Calcium Carbonate/Glycine (Calcium Carbonate 500 Mg Chewable) 500 mg PO TID PRN PRN Reason: Heartburn Last Admin: 08/06/21 08:37 Dose: 500 mg Documented by: Cholecalciferol (Cholecalciferol 10 Mcg (400 Iu) Tablet) 10 mcg PO DAILY [facility] Last Admin: 08/15/21 09:00 Dose: 10 mcg Documented by: Dexamethasone Sodium Phosphate (Dexamethasone Sod Phosphate 10 Mg/Ml 1 Ml Vial) 6 mg IV DAILY [facility] Last Admin: 08/15/21 08:14 Dose: 6 mg Documented by: Piperacillin Sod/Tazobactam (Sod 3.375 gm/ Sodium Chloride) 100 mls @ 25 mls/hr IVPB Q8HR [facility] Last Admin: 08/15/21 15:30 Dose: 25 mls/hr Documented by: Diltiazem HCl 125 mg/ Sodium (Chloride) 125 mls @ 5 mls/hr IV .Q24H [facility] Last Admin: 08/14/21 18:34 Dose: 5 mg/hr, 5 mls/hr Documented by: Norepinephrine Bitartrate 4 mg (/ Sodium Chloride) 254 mls @ 11.43 mls/hr IV .[id number] [facility]; Protocol Last Titration: 08/15/21 04:20 Dose: 0 mcg/kg/min, 0 mls/hr Documented by: Sodium Chloride (Saline 0.9%) 1,000 mls @ 75 mls/hr IV .[id number] [facility] Last Admin: 08/15/21 09:01 Dose: 75 mls/hr Documented by: Insulin Aspart (Insulin Aspart (Novolog) 100 Unit/Ml Vial) 0 unit SQ Q6HR [facility]; Protocol Last Admin: 08/15/21 12:23 Dose: 4 unit Documented by: Insulin Detemir (Insulin Detemir (Levemir) 100 Unit/Ml Syr) 15 unit SQ HS [facility] Last Admin: 08/15/21 00:19 Dose: Not Given Documented by: Metoprolol Tartrate (Metoprolol Tartrate 50 Mg Tab) 100 mg PO BID [facility] Last Admin: 08/15/21 09:01 Dose: 100 mg Documented by: Miscellaneous Information (Potassium Replacement Protocol 1 Each Misc) 1 each MISCELLANE DAILY PRN; Protocol PRN Reason: Per Protocol Miscellaneous Information (Magnesium Replacement Protocol 1 Each Misc) 1 each MISCELLANE DAILY PRN; Protocol PRN Reason: Per Protocol Pantoprazole Sodium (Pantoprazole 40 Mg/10 Ml Vial) 40 mg IVP BID [facility] Last Admin: 08/15/21 08:14 Dose: 40 mg Documented by: Sodium Chloride (Sodium Chloride 0.9% Flush 10 Ml Syringe) 10 ml IV Q4HR PRN PRN Reason: PICC Line Sodium Chloride (Sodium Chloride 0.9% Flush 10 Ml Syringe) 10 ml IV WEEKLY [facility] Last Admin: 08/09/21 09:44 Dose: 10 ml Documented by: Sodium Chloride (Sodium Chloride 0.9% Flush 10 Ml Syringe) 20 ml IV Q4HR PRN PRN Reason: PICC Line Zinc Sulfate (Zinc Sulfate 220 Mg Cap) 220 mg PO DAILY [facility] Last Admin: 08/15/21 08:14 Dose: 220 mg Documented by: PHYSICAL EXAMINATION: GENERAL: The patient is alert and oriented x1, extremely lethargic. Minimally responsive. Thin built. Continues on BiPAP. Temp is 97.6, pulse is 73, resp are 19, blood pressure is 113/54, and 02 is 96% on BiPAP HEENT: Pupils are round and equally reacting to light. EOMI. No scleral icterus. No conjunctival pallor. Normocephalic, atraumatic. No pharyngeal erythema. No thyromegaly. NG tube noted CARDIOVASCULAR: S1 and S2 muffled. PULMONARY: Diffuse bilateral coarse rhonchi and scattered crackles noted with diminished breath sounds at the bases ABDOMEN: Soft, nontender, nondistended, normoactive bowel sounds. No palpable organomegaly. MUSCULOSKELETAL: No joint swelling or deformity. EXTREMITIES: No cyanosis, clubbing, or pedal edema. NEUROLOGICAL: Minimally arousable, extremely lethargic alert and oriented 1 and fatigued and falls asleep easily. Diffusely weak SKIN: No rashes. 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 Continue with weaning 02 as tolerated. Continued on eliquis, IV dexamethasone, vitamin and zinc supplements. Patient has received Baricitinib. Patient's respiratory status continued to deteriorate while on Airvo and continued to be minimally re sponsive and brought back to ICU for close monitoring and patient placed back on BiPAP. Pulmonary following closely. General surgery possibly being consulted for PEG tube placement as patient mentation has worsened and extremely lethargic and unable to perform speech evaluation. Patient is a high risk for aspiration pneumonia and started on empiric antibiotics in the form of IV Zosyn and white blood count is elevated. Will repeat chest x-ray along with labs in the a.m. Due to multiple complex medical issues, Prognosis is extremely poor and guarded. Objective - Vital Signs Vital signs: Vital Signs Temp 97.7 F 08/15/21 04:00 Pulse 73 08/15/21 07:00 Resp 20 08/15/21 07:00 BP 124/64 08/15/21 07:00 Pulse Ox 97 08/15/21 07:00 Intake & Output 08/14/21 08/15/21 08/15/21 18:59 06:59 18:59 Intake Total 767.999 77 Output Total 900 1405 50 Balance -900 -637.001 27 Weight 60 kg 59.4 kg Intake: IV 140 20 0.9 @ 20mL/hr 140 20 Intake, IV Titration 168.999 Amount Norepinephrine 4 mg In 68.999 Sodium Chloride 0.9% 250 ml @ 0.05 MCG/KG/MIN 11. 43 mls/hr IV .[id number] [facility] Rx#:[id number] Piperacillin-Tazobactam 3 100 .375 gm In Sodium Chloride 0.9% 100 ml @ 25 mls/hr IVPB Q8HR [facility] Rx# :[id number] Tube Feeding 399 57 Other 60 Output: Urine 900 1405 50 Other: Voiding Method Indwelling Catheter Indwelling Catheter - Labs CBC & Chem 7: 08/15/21 05:40 08/15/21 05:40 Labs: Abnormal Lab Results - Last 24 Hours (Table) 08/14/21 08/14/21 08/14/21 Range/Units 11:30 16:36 18:35 WBC (3.8-10.6) k/uL RBC (4.30-5.90) m/uL Hgb (13.0-17.5) gm/dL Hct (39.0-53.0) % Neutrophils # (1.3-7.7) k/uL Lymphocytes # (1.0-4.8) k/uL D-Dimer (<0.60) mg/L FEU ABG pH (7.35-7.45) ABG pO2 (83-108) mmHg ABG HCO3 (21-25) mmol/L ABG Total CO2 (19-24) mmol/L ABG O2 Saturation (94-97) % Sodium (137-145) mmol/L BUN (9-20) mg/dL Glucose (74-99) mg/dL POC Glucose (mg/dL) 171 H 242 H 221 H (75-99) mg/dL Calcium (8.4-10.2) mg/dL AST (17-59) U/L ALT (4-49) U/L Alkaline Phosphatase (38-126) U/L Lactate Dehydrogenase (313-618) U/L C-Reactive Protein (<1.0) mg/dL Total Protein (6.3-8.2) g/dL Albumin (3.5-5.0) g/dL 08/14/21 08/14/21 08/15/21 Range/Units 18:56 19:26 00:02 WBC (3.8-10.6) k/uL RBC (4.30-5.90) m/uL Hgb (13.0-17.5) gm/dL Hct (39.0-53.0) % Neutrophils # (1.3-7.7) k/uL Lymphocytes # (1.0-4.8) k/uL D-Dimer (<0.60) mg/L FEU ABG pH 7.49 H (7.35-7.45) ABG pO2 53 L* (83-108) mmHg ABG HCO3 28 H (21-25) mmol/L ABG Total CO2 29 H (19-24) mmol/L ABG O2 Saturation 89.7 L (94-97) % Sodium (137-145) mmol/L BUN (9-20) mg/dL Glucose (74-99) mg/dL POC Glucose (mg/dL) 175 H 52 L (75-99) mg/dL Calcium (8.4-10.2) mg/dL AST (17-59) U/L ALT (4-49) U/L Alkaline Phosphatase (38-126) U/L Lactate Dehydrogenase (313-618) U/L C-Reactive Protein (<1.0) mg/dL Total Protein (6.3-8.2) g/dL Albumin (3.5-5.0) g/dL 08/15/21 08/15/21 08/15/21 Range/Units 00:16 05:40 05:40 WBC 29.8 H (3.8-10.6) k/uL RBC 3.52 L (4.30-5.90) m/uL Hgb 10.4 L (13.0-17.5) gm/dL Hct 30.9 L (39.0-53.0) % Neutrophils # 28.4 H (1.3-7.7) k/uL Lymphocytes # 0.6 L (1.0-4.8) k/uL D-Dimer 3.84 H (<0.60) mg/L FEU ABG pH (7.35-7.45) ABG pO2 (83-108) mmHg ABG HCO3 (21-25) mmol/L ABG Total CO2 (19-24) mmol/L ABG O2 Saturation (94-97) % Sodium (137-145) mmol/L BUN (9-20) mg/dL Glucose (74-99) mg/dL POC Glucose (mg/dL) 227 H (75-99) mg/dL Calcium (8.4-10.2) mg/dL AST (17-59) U/L ALT (4-49) U/L Alkaline Phosphatase (38-126) U/L Lactate Dehydrogenase (313-618) U/L C-Reactive Protein (<1.0) mg/dL Total Protein (6.3-8.2) g/dL Albumin (3.5-5.0) g/dL 08/15/21 Range/Units 05:40 WBC (3.8-10.6) k/uL RBC (4.30-5.90) m/uL Hgb (13.0-17.5) gm/dL Hct (39.0-53.0) % Neutrophils # (1.3-7.7) k/uL Lymphocytes # (1.0-4.8) k/uL D-Dimer (<0.60) mg/L FEU ABG pH (7.35-7.45) ABG pO2 (83-108) mmHg ABG HCO3 (21-25) mmol/L ABG Total CO2 (19-24) mmol/L ABG O2 Saturation (94-97) % Sodium 134 L (137-145) mmol/L BUN 35 H (9-20) mg/dL Glucose 242 H (74-99) mg/dL POC Glucose (mg/dL) (75-99) mg/dL Calcium 7.4 L (8.4-10.2) mg/dL AST 74 H (17-59) U/L ALT 66 H (4-49) U/L Alkaline Phosphatase 199 H (38-126) U/L Lactate Dehydrogenase 1462 H (313-618) U/L C-Reactive Protein 19.9 H (<1.0) mg/dL Total Protein 4.7 L (6.3-8.2) g/dL Albumin 2.1 L (3.5-5.0) g/dL
[2021-08-15 17:54] LABS: Glucose,Whole Blood 233 mg/dL (75-99)
[2021-08-15] MEDS: DILTIAZEM 125 MG in SODIUM CHLORIDE 0.9% 100 ML IV SCH (19:06)
[2021-08-15] MEDS: ATORVASTATIN 40 MG TAB PO SCH (20:56)
--- NOTE | 2021-08-15 22:24 | PN ---
PROGRESS NOTE DATE OF SERVICE: 08/15/2021 REASON FOR FOLLOWUP: 1. COVID-19 pneumonia. 2. Elevated white count. INTERVAL HISTORY: The patient has been transferred back to ICU. The patient apparently had atrial fibrillation the patient's heart rate is currently controlled. He remains BiPAP- dependent. Remains lethargic. Unable to provide any history. No vomiting, diarrhea or any other changes reported by the nursing staff. PHYSICAL EXAMINATION: Blood pressure 131/61, pulse of 70, temperature 97.8. He is 95% on BiPAP. General description is an elderly male lying in bed in no distress. RESPIRATORY SYSTEM: Unlabored breathing. Decreased intensity of breath sounds. No wheeze. HEART: S1, S2. Regular rate and rhythm. ABDOMEN: Soft. No tenderness. EXTREMITIES: No edema of the feet. LABS: Hemoglobin is 10.8, white count 29.8, creatinine 0.71. Liver enzymes are mildly elevated. DIAGNOSTIC IMPRESSION AND PLAN: Patient with acute COVID-19 pneumonia with acute respiratory failure , now with atrial fibrillation with RVR, elevated white count, more likely steroid effect. Cultures will be repeated as well as inflammatory markers and procalcitonin. He will be started on antibiotic to continue and continue supportive care. MMODL / IJN: [id number] /
[2021-08-15 23:27] LABS: Glucose,Whole Blood 328 mg/dL (75-99)
[2021-08-16 04:29] LABS: Basophils % (A) 0 %; Eosinophils % (A) 0 %; HCT 27.8 % (39.0-53.0); Lymphocytes # (A) 0.5 k/uL (1.0-4.8); Lymphocytes % (A) 3 %; MCH 28.7 pg (25.0-35.0); MCHC 32.4 g/dL (31.0-37.0); MCV 88.6 fL (80.0-100.0); Monocytes # (A) 0.5 k/uL (0-1.0); Monocytes % (A) 3 %; Neutrophils # (A) 15.2 k/uL (1.3-7.7); Neutrophils % (A) 93 %; Platelet Count 134 k/uL (150-450); RBC 3.14 m/uL (4.30-5.90); RDW 15.1 % (11.5-15.5); WBC 16.2 k/uL (3.8-10.6)
[2021-08-16 04:30] LABS: ALT 46 U/L (4-49); AST 53 U/L (17-59); African American GFR (CKD) >90 (>60 ml/min/1.73 sqM); Albumin 1.8 g/dL (3.5-5.0); Alkaline Phosphatase 231 U/L (38-126); Anion Gap 1 mmol/L; Blood Urea Nitrogen 31 mg/dL (9-20); Carbon Dioxide 26 mmol/L (22-30); Chloride 108 mmol/L (98-107); Creatine Kinase 55 U/L (55-170); Glucose 271 mg/dL (74-99); LDH 1033 U/L (313-618); Non-African American GFR(CKD) >90 (>60 ml/min/1.73 sqM); Potassium 3.5 mmol/L (3.5-5.1); Sodium 135 mmol/L (137-145); Total Bilirubin 0.4 mg/dL (0.2-1.3); Total Protein 4.2 g/dL (6.3-8.2)
[2021-08-16 04:44] LABS: C Reactive Protein 15.9 mg/dL (<1.0)
[2021-08-16] MEDS: INSULIN ASPART (NovoLOG) 100 UNIT/ML VIAL SQ SCH ×4 (05:47→23:44)
[2021-08-16] MEDS: POTASSIUM CHLORIDE 20 MEQ in WATER FOR INJECTION 1 100ML.BAG IVPB SCH ×2 (06:00→08:42)
[2021-08-16] MEDS: SODIUM CHLORIDE 0.9% 1,000 ML IV SCH (07:00)
--- NOTE | 2021-08-16 08:13 | XR ---
EXAMINATION TYPE: XR chest 1V portable DATE OF EXAM: 08/16/2021 COMPARISON: 08/15/2021 INDICATION: Atypical pneumonia, COVID TECHNIQUE: Single frontal view of the chest is obtained. FINDINGS: The heart size is normal. The pulmonary vasculature is normal. Patchy diffuse increase infiltrates present bilaterally greater on the left. Air bronchograms are pre sent at the left base. Small left pleural effusion may be present. Nasogastric tube transverses the thorax tip in the left upper quadrant of the abdomen IMPRESSION: 1. Bilateral lung infiltrates greater on the left can be compatible with atypical pneumonia.
[2021-08-16] MEDS: PIPERACILLIN-TAZOBACTAM 3.375 GM in SODIUM CHLORIDE 0.9% 100 ML IVPB SCH ×3 (08:42→23:06)
[2021-08-16] MEDS: DEXAMETHASONE SOD PHOSPHATE 10 MG/ML 1 ML VIAL IV SCH (08:43)
[2021-08-16] MEDS: APIXABAN 5 MG TAB PO SCH ×2 (08:43→09:10)
[2021-08-16] MEDS: METOPROLOL TARTRATE 50 MG TAB PO SCH ×2 (08:43→20:52)
[2021-08-16] MEDS: ASCORBIC ACID 500 MG TAB PO SCH (08:43)
[2021-08-16] MEDS: PANTOPRAZOLE 40 MG/10 ML VIAL IVP SCH ×2 (08:43→20:51)
[2021-08-16] MEDS: CHOLECALCIFEROL 10 MCG (400 IU) TABLET PO SCH (08:44)
[2021-08-16] MEDS: ZINC SULFATE 220 MG CAP PO SCH (08:44)
--- NOTE | 2021-08-16 09:53 | P.PN ---
Subjective Progress Note Date: 08/16/21 The patient is seen today 08/16/2021 in follow-up in the intensive care unit. He is currently resting in bed. Arousable, following some very simple commands only. He remains on BiPAP 16/10 and 50% FiO2 to maintain O2 saturation in the low 90s. He is on 0.9 normal saline at 75 ML's per hour. Being nourished with vital 1.2 at 57 ML's per hour which is goal. Chest x-ray continues to show bilateral patchy infiltrates. White count 16.2. Hemoglobin 9.0. Platelet count 134. D-dimer 3.01. Sodium 135. Potassium 3.5. Bicarb 26. Creatinine 0.53. LDH 1033. C-reactive protein 15.9. He remains anticoagulated with Eliquis. Continued on Decadron, vitamin supplements. Antibiotics in the form of Zosyn. Objective - Vital Signs Vital signs: Vital Signs Temp 97.1 F L 08/16/21 04:00 Pulse 80 08/16/21 07:00 Resp 18 08/16/21 07:00 BP 154/65 08/16/21 07:00 Pulse Ox 99 08/16/21 07:00 Intake & Output 08/15/21 08/16/21 08/16/21 18:59 06:59 18:59 Intake Total 1434 1806 Output Total 565 705 Balance 869 1101 Weight 63.1 kg 63.1 kg Intake: IV 570 975 0.9 @ 20mL/hr 570 975 Tube Feeding 684 741 Other 180 90 Output: Urine 565 705 Other: Voiding Method Indwelling Catheter Indwelling Catheter - Exam Minimally responsive 75-year-old gentleman, Currently on BiPAP 16/10 and 50% FiO2 Head exam was generally normal. There was no scleral icterus or corneal arcus. Mucous membranes were moist. HEENT: Pupils are round and equally reacting to light. EOMI. No scleral icterus. No conjunctival pallor. Nasogastric tube remains in place. No pharyngeal erythema. No thyromegaly. CARDIOVASCULAR: S1 and S2 present. No murmurs, rubs, or gallops. Tachycardic irregularly irregular rhythm PULMONARY: Diffuse bilateral crackles ABDOMEN: Soft, nontender, nondistended, normoactive bowel sounds. No palpable organomegaly. MUSCULOSKELETAL: No joint swelling or deformity. EXTREMITIES: No cyanosis, clubbing, or pedal edema. NEUROLOGICAL: Neurologically, no facial asymmetry. He is moving his eyes in all different directions. Coughing mechanism is weak. Motor functions are weak in all 4 extremities. The neurologic exam is nonfocal. He is arousable and able to follow simple commands and answer simple questions. SKIN: No rashes. Examination of the skin revealed no evidence of significant rashes, suspicious appearing nevi or other concerning lesions. - Labs CBC & Chem 7: 08/16/21 03:50 08/16/21 03:50 Labs: Abnormal Lab Results - Last 24 Hours (Table) 08/14/21 08/15/21 08/15/21 Range/Units 04:45 05:40 11:47 WBC (3.8-10.6) k/uL RBC (4.30-5.90) m/uL Hgb (13.0-17.5) gm/dL Hct (39.0-53.0) % Plt Count (150-450) k/uL Neutrophils # (1.3-7.7) k/uL Lymphocytes # (1.0-4.8) k/uL D-Dimer (<0.60) mg/L FEU Sodium (137-145) mmol/L Chloride (98-107) mmol/L BUN (9-20) mg/dL Creatinine (0.66-1.25) mg/dL Glucose (74-99) mg/dL POC Glucose (mg/dL) 262 H (75-99) mg/dL Calcium (8.4-10.2) mg/dL Ferritin 1071.0 H (22.0-322.0) ng/mL Alkaline Phosphatase (38-126) U/L Lactate Dehydrogenase (313-618) U/L C-Reactive Protein (<1.0) mg/dL Total Protein (6.3-8.2) g/dL Albumin (3.5-5.0) g/dL Procalcitonin 0.26 H (0.02-0.09) ng/mL 08/15/21 08/15/21 08/16/21 Range/Units 17:43 23:25 03:50 WBC 16.2 H (3.8-10.6) k/uL RBC 3.14 L (4.30-5.90) m/uL Hgb 9.0 L (13.0-17.5) gm/dL Hct 27.8 L (39.0-53.0) % Plt Count 134 L (150-450) k/uL Neutrophils # 15.2 H (1.3-7.7) k/uL Lymphocytes # 0.5 L (1.0-4.8) k/uL D-Dimer (<0.60) mg/L FEU Sodium (137-145) mmol/L Chloride (98-107) mmol/L BUN (9-20) mg/dL Creatinine (0.66-1.25) mg/dL Glucose (74-99) mg/dL POC Glucose (mg/dL) 233 H 328 H (75-99) mg/dL Calcium (8.4-10.2) mg/dL Ferritin (22.0-322.0) ng/mL Alkaline Phosphatase (38-126) U/L Lactate Dehydrogenase (313-618) U/L C-Reactive Protein (<1.0) mg/dL Total Protein (6.3-8.2) g/dL Albumin (3.5-5.0) g/dL Procalcitonin (0.02-0.09) ng/mL 08/16/21 08/16/21 Range/Units 03:50 03:50 WBC (3.8-10.6) k/uL RBC (4.30-5.90) m/uL Hgb (13.0-17.5) gm/dL Hct (39.0-53.0) % Plt Count (150-450) k/uL Neutrophils # (1.3-7.7) k/uL Lymphocytes # (1.0-4.8) k/uL D-Dimer 3.01 H (<0.60) mg/L FEU Sodium 135 L (137-145) mmol/L Chloride 108 H (98-107) mmol/L BUN 31 H (9-20) mg/dL Creatinine 0.53 L (0.66-1.25) mg/dL Glucose 271 H (74-99) mg/dL POC Glucose (mg/dL) (75-99) mg/dL Calcium 7.0 L (8.4-10.2) mg/dL Ferritin (22.0-322.0) ng/mL Alkaline Phosphatase 231 H (38-126) U/L Lactate Dehydrogenase 1033 H (313-618) U/L C-Reactive Protein 15.9 H (<1.0) mg/dL Total Protein 4.2 L (6.3-8.2) g/dL Albumin 1.8 L (3.5-5.0) g/dL Procalcitonin (0.02-0.09) ng/mL Assessment and Plan Assessment: 1 COVID-19 related pneumonia with secondary hypoxic respiratory failure. Remains on BiPAP 16/10-50% FiO2 2 acute hypoxic respiratory failure secondary to above 3 altered mentation with diminished level of consciousness likely secondary to COVID-19 related encephalopathy. The patient has embolic strokes bilaterally as confirmed by the CAT scan of the brain and MRI. He is currently on Eliquis. No signs of any hemorrhagic transformation. 4 mild leukocytosis with a white cell count of 16.2. The pro calcitonin level was 0.26. Completed Baricitinib 5 elevated inflammatory markers secondary to above, needs to be followed 6 non-anion gap metabolic acidosis, and the bicarb deficit these to be replaced 7 diabetes mellitus 8 hypertension 9 hyperlipidemia 10 chronic atrial fibrillation, currently on Lopressor for rate control 100 mg twice a day, currently on Eliquis Plan The patient was seen and evaluated by Dr. Ochoa Chest x-ray and labs reviewed 0.9 normal saline 75 ML's per hour Treat the FiO2 as tolerated Continue the current treatment plan He is a DO NOT INTUBATE CODE STATUS Overall prognosis is quite poor We will continue to follow I, the cosigning physician, performed a history & physical examination of the patient. Lungs sounds with crackles in the bilateral bases. Maintaining good O2 saturations in the 90s on BiPAP 16/10 and 50% FiO2. I discussed the assessment and plan of care with my nurse practitioner, Mirna Ray. I attest to the above note as dictated by her.
[2021-08-16 11:36] LABS: Glucose,Whole Blood 139 mg/dL (75-99)
--- NOTE | 2021-08-16 14:32 | P.GSCN ---
History of Present Illness Consult date: 08/16/21 History of present illness: CHIEF COMPLAINT: COVID-19 pneumonia HISTORY OF PRESENT ILLNESS: This is a 75-year-old male who was admitted to the hospital with COVID-19 pneumonia, new onset of atrial fibrillation with rapid ventricular response and bilateral embolic CVAs. Patient is lethargic. He remains in the ICU and on BiPAP. He never did require to be intubated. He is able to follow simple commands. He is currently anticoagulated with the Eliquis. Surgical consult has been placed for PEG tube placement. PAST MEDICAL HISTORY: Diabetes mellitus, hyperlipidemia, hypertension PAST SURGICAL HISTORY: Back surgery MEDICATIONS: See list. ALLERGIES: See list. SOCIAL HISTORY: No illicit drug use. Marijuana use REVIEW OF SYSTEMS: CONSTITUTIONAL: Denies fever or chills. HEENT: Denies blurred vision, vision changes, or eye pain. Denies hemoptysis CARDIOVASCULAR: Denies chest pain or pressure. RESPIRATORY: No shortness of breath. GASTROINTESTINAL: See HPI for pertinent findings HEMATOLOGIC: Denies bleeding disorders. GENITOURINARY: Denies any blood in urine or increased urinary frequency. SKIN: Denies pruitis. Denies rash. PHYSICAL EXAM: VITAL SIGNS: Reviewed GENERAL: Well-developed in no acute distress. HEENT: No sclera icterus. Extraocular movements grossly intact. Moist buccal mucosa. Head is atraumatic, normocephalic. No nasal drainage. ABDOMEN: Soft. Nondistended. Nontender NEUROLOGIC: Alert and oriented. Cranial nerves II through XII grossly intact. LABORATORY DATA: WBC is 29.8 down to 16.2 hemoglobin 9.0 platelets 134 Sodium 135 potassium 3.5 BUN 31 creatinine 0.53 Albumin 1.8 IMAGING: ASSESSMENT: 1. Severe protein calorie malnutrition 2. COVID-19 pneumonia 4. Atrial fibrillation 4. Embolic strokes bilaterally PLAN: -Patient scheduled for PEG tube placement tomorrow, 08/17/[address] cho -Hold tube feedings after midnight -Place Eliquis on hold -Continue ICU management and supportive care Thank you for this consultation Physician Business Law Professor note has been reviewed by physician. Signing provider agrees with the documented findings, assessment, and plan of care. Past Medical History Past Medical History: Diabetes Mellitus, Hyperlipidemia, Hypertension Additional Past Medical History / Comment(s): back surgery History of Any Multi-Drug Resistant Organisms: None Reported Additional Past Surgical History / Comment(s): back, shoulder Past Psychological History: No Psychological Hx Reported Smoking Status: Never smoker Past Alcohol Use History: None Reported Past Drug Use History: Marijuana - Past Family History Father History Unknown: Yes Medications and Allergies Home Medications Medication Instructions Recorded Confirmed Type Azithromycin [Zithromax] See Taper PO DAILY 07/30/21 07/30/21 History Cbd Sublingual Tabs (Unknown 1 dose SL Q4-6H PRN 07/30/21 07/30/21 History Strength) Clopidogrel Bisulfate [Plavix] 75 mg PO DAILY 07/30/21 07/30/21 History Zinc 50 mg PO DAILY 07/30/21 07/30/21 History amLODIPine [Norvasc] 10 mg PO DAILY 07/30/21 07/30/21 History glipiZIDE [Glucotrol] 10 mg PO BID 07/30/21 07/30/21 History lisinopriL 20 mg PO BID 07/30/21 07/30/21 History Allergies Allergy/AdvReac Type Severity Reaction Status Date / Time corn Allergy Unknown Verified 07/30/21 21:18 peanut Allergy Unknown Verified 07/30/21 21:18 Surgical - Exam Vital Signs Temp Pulse Resp BP Pulse Ox 97.9 F 98 28 H 140/93 95 07/30/21 20:05 07/30/21 20:05 07/30/21 20:05 07/30/21 20:05 07/30/21 20:05 Results - Labs 08/16/21 03:50 08/16/21 03:50 Abnormal Lab Results - Last 24 Hours (Table) 08/14/21 08/15/21 08/15/21 Range/Units 04:45 05:40 17:43 WBC (3.8-10.6) k/uL RBC (4.30-5.90) m/uL Hgb (13.0-17.5) gm/dL Hct (39.0-53.0) % Plt Count (150-450) k/uL Neutrophils # (1.3-7.7) k/uL Lymphocytes # (1.0-4.8) k/uL D-Dimer (<0.60) mg/L FEU Sodium (137-145) mmol/L Chloride (98-107) mmol/L BUN (9-20) mg/dL Creatinine (0.66-1.25) mg/dL Glucose (74-99) mg/dL POC Glucose (mg/dL) 233 H (75-99) mg/dL Calcium (8.4-10.2) mg/dL Ferritin 1071.0 H (22.0-322.0) ng/mL Alkaline Phosphatase (38-126) U/L Lactate Dehydrogenase (313-618) U/L C-Reactive Protein (<1.0) mg/dL Total Protein (6.3-8.2) g/dL Albumin (3.5-5.0) g/dL Procalcitonin 0.26 H (0.02-0.09) ng/mL 08/15/21 08/16/21 08/16/21 Range/Units 23:25 03:50 03:50 WBC 16.2 H (3.8-10.6) k/uL RBC 3.14 L (4.30-5.90) m/uL Hgb 9.0 L (13.0-17.5) gm/dL Hct 27.8 L (39.0-53.0) % Plt Count 134 L (150-450) k/uL Neutrophils # 15.2 H (1.3-7.7) k/uL Lymphocytes # 0.5 L (1.0-4.8) k/uL D-Dimer 3.01 H (<0.60) mg/L FEU Sodium (137-145) mmol/L Chloride (98-107) mmol/L BUN (9-20) mg/dL Creatinine (0.66-1.25) mg/dL Glucose (74-99) mg/dL POC Glucose (mg/dL) 328 H (75-99) mg/dL Calcium (8.4-10.2) mg/dL Ferritin (22.0-322.0) ng/mL Alkaline Phosphatase (38-126) U/L Lactate Dehydrogenase (313-618) U/L C-Reactive Protein (<1.0) mg/dL Total Protein (6.3-8.2) g/dL Albumin (3.5-5.0) g/dL Procalcitonin (0.02-0.09) ng/mL 08/16/21 08/16/21 Range/Units 03:50 11:32 WBC (3.8-10.6) k/uL RBC (4.30-5.90) m/uL Hgb (13.0-17.5) gm/dL Hct (39.0-53.0) % Plt Count (150-450) k/uL Neutrophils # (1.3-7.7) k/uL Lymphocytes # (1.0-4.8) k/uL D-Dimer (<0.60) mg/L FEU Sodium 135 L (137-145) mmol/L Chloride 108 H (98-107) mmol/L BUN 31 H (9-20) mg/dL Creatinine 0.53 L (0.66-1.25) mg/dL Glucose 271 H (74-99) mg/dL POC Glucose (mg/dL) 139 H (75-99) mg/dL Calcium 7.0 L (8.4-10.2) mg/dL Ferritin (22.0-322.0) ng/mL Alkaline Phosphatase 231 H (38-126) U/L Lactate Dehydrogenase 1033 H (313-618) U/L C-Reactive Protein 15.9 H (<1.0) mg/dL Total Protein 4.2 L (6.3-8.2) g/dL Albumin 1.8 L (3.5-5.0) g/dL Procalcitonin (0.02-0.09) ng/mL Diabetes panel 08/16/21 Range/Units 03:50 Sodium 135 L (137-145) mmol/L Potassium 3.5 (3.5-5.1) mmol/L Chloride 108 H (98-107) mmol/L Carbon Dioxide 26 (22-30) mmol/L BUN 31 H (9-20) mg/dL Creatinine 0.53 L (0.66-1.25) mg/dL Glucose 271 H (74-99) mg/dL Calcium 7.0 L (8.4-10.2) mg/dL AST 53 (17-59) U/L ALT 46 (4-49) U/L Alkaline Phosphatase 231 H (38-126) U/L Total Protein 4.2 L (6.3-8.2) g/dL Albumin 1.8 L (3.5-5.0) g/dL Calcium panel 08/16/21 Range/Units 03:50 Calcium 7.0 L (8.4-10.2) mg/dL Albumin 1.8 L (3.5-5.0) g/dL Pituitary panel 08/16/21 Range/Units 03:50 Sodium 135 L (137-145) mmol/L Potassium 3.5 (3.5-5.1) mmol/L Chloride 108 H (98-107) mmol/L Carbon Dioxide 26 (22-30) mmol/L BUN 31 H (9-20) mg/dL Creatinine 0.53 L (0.66-1.25) mg/dL Glucose 271 H (74-99) mg/dL Calcium 7.0 L (8.4-10.2) mg/dL Adrenal panel 08/16/21 Range/Units 03:50 Sodium 135 L (137-145) mmol/L Potassium 3.5 (3.5-5.1) mmol/L Chloride 108 H (98-107) mmol/L Carbon Dioxide 26 (22-30) mmol/L BUN 31 H (9-20) mg/dL Creatinine 0.53 L (0.66-1.25) mg/dL Glucose 271 H (74-99) mg/dL Calcium 7.0 L (8.4-10.2) mg/dL Total Bilirubin 0.4 (0.2-1.3) mg/dL AST 53 (17-59) U/L ALT 46 (4-49) U/L Alkaline Phosphatase 231 H (38-126) U/L Total Protein 4.2 L (6.3-8.2) g/dL Albumin 1.8 L (3.5-5.0) g/dL
--- NOTE | 2021-08-16 15:05 | PN ---
PROGRESS NOTE 75-year-old gentleman who was admitted to ICU with coronavirus infection with pneumonia and respiratory failure that we have been asked to see him again because of episodes of atrial fibrillation. He is currently in sinus. He has not had any further episodes of A-fib. He is on Eliquis 5 b.i.d. Physical exam has not been performed on this patient. Patient is in isolation. ASSESSMENT: 1. Paroxysmal atrial fibrillation. 2. Covid pneumonia with respiratory failure. PLAN: Continue current medications. MMODL / IJN: [id number] /
--- NOTE | 2021-08-16 16:08 | P.PN ---
Subjective Progress Note Date: 08/16/21 Patient is a 75 -year-old pleasant male was transferred from a outside hospital for atrial fibrillation with rapid ventricular rate. Patient is presently on therapeutic dose of Lovenox. Also has highly elevated INR. His baseline creatinine is unknown but his present creatinine is around the 0.66, patient is receiving half-normal saline at 75 mL per hour patient is also on Remdesivir, presently on 15 L of oxygen, CT of the chest did not show any pulmonary embolism but did show diffuse infiltrate patient was having symptoms for about 4 days patient was unable to provide much of history to me patient is too tired and weak. Patient is not tolerating any by mouth medications at this time because of which patient was started on IV Cardizem patient usually takes metoprolol 25 twice a day. Patient doesn't have any history of congestive heart failure. Patient was started on Decadron as well. Patient has highly elevated d-dimer. 08/01/2021 Patient is seen in follow-up continues to be closely monitored in the ICU. Patient is extremely lethargic although is arousable and intermittently resp onding appropriately to questions and commands. Patient continues to have delayed response and altered mental status and CT of the brain was ordered. Neurology has been consulted and pulmonary along with urology following closely. She continues on IV heparin along with IV Cardizem. white blood count is 14.1, hemoglobin is stable at 16.1, d-dimer is above 34.10, sodium is 141 with a potassium of 4.5 and current creatinine is 0.61. LDH is 30-55 and CRP is 6.3. TSH is 0.112 and free T4 is 4.06. patient is maintained on 15 L high flow nasal cannula along with occasional intermittent nonrebreather. Patient is afebrile. 08/02/2021 Patient is seen in follow up this morning and is being closely monitored in the ICU with multiple medical consultations following including pulmonary, infectiou s disease, cardiology, and neurology. CT of the brain recommending MRI and this is ordered and pending. Patient is on 13L HF nasal cannula. Mentation slowly improving and answering questions appropriately. Patient continues to be extremely weak and fatigues easily. Cardiology planning to transition cardizem to oral and possibly starting eliquis. 08/03/2021 Patient is seen and evaluated in follow-up this morning and patient continues to improve although continues to be extremely weak and fatigued. Multiple medical consultations following an neurology recommending BARBARA although was reviewed by cardiology and no plans for BARBARA at this time as MRI along with CT confirms embolic stroke with MRI showing a few scattered areas of restricted diffusion in the inferior cerebellar hemispheres bilaterally with scattered areas of restricted diffusion present in the cerebellum, occipital lobes, as well as bilateral parietal lobes. Patient continued on subcutaneous heparin with discussion of possibly starting Eliquis in the next 2 days. Patient has been started on Brilinta an neurology is following closely. Speech has evaluated the patient and recommending continuing the patient with nothing by mouth except medications as the swallow eval was not able to be completed due to extreme fatigue and lethargy. Speech will reevaluate the patient once more alert and awake. White blood count today is 17.6 with a hemoglobin of 14.6, d-dimer is elevated at 27.78, sodium is 135 with a potassium of 3.6, BUN is 33 and creatinine is 0.59. Blood sugars are being closely monitored. Repeat x-ray and labs along with inflammatory markers in the a.m. Continuing to wean as tolerated and patient is maintained on 9 L high flow and maintaining oxygen saturations of 97%. Patient with atrial fibrillation currently rate controlled with metoprolol and cardiology is following. 08/04/2021 Patient is seen in follow-up this morning continues to be in the ICU and continues to drift often fall asleep easily although mentation has improved. Patient states the year as 1990 but also states he knows that is wrong and states he is currently in the hospital for Covid but was unaware of any recent stroke. Right side direct care provider strength 4/5 improving although patient is unable to completely lift extremity and left side direct care provider strength continues to be weak 2/5 and completely unable to lift this extremity. Multiple medical consultations including neurology, cardiology, concrete smoother along with infectious disease following closely. Patient being resumed on Eliquis and Brilinta has been discontinued. Chest x-ray today shows diffuse mild infiltrates greater on the left that can be compatible with atypical pneumonia. Awaiting repeat swallow eval today with the possibility of TPN for enteral nutrition as patient has been nothing by mouth. Patient continues on 11 L high flow and recommend to wean as tolerated. White blood count today is 27.3 with a hemoglobin of 15.6, d-dimer is 24.3, sodium is 131 with a potassium of 4.9, BUN is 26 and creatinine is 0.59. CRP is 4.3. Patient continues on baricitinib along with dexamethasone and vitamin and zinc supplements and will continue. 08/05/2021 Patient is evaluated today in the ICU, he is maintained on a BiPAP at the time of my assessment. Plan is to titrate oxygen as needed. Chest x-ray today reveals persistent left greater than right bilateral multifocal opacities. Labs are reviewed, White blood cell count 25.2. His d-dimer today is elevated at 29.09 which is slightly increased. LDH is 2286, CRP 5.8, pro calcitonin 0.07. Sodium today is 131. Vital signs include blood pressure 113/62. Respirations are 20s. Patient has remained afebrile. Swallow evaluation was conducted again today for follow-up for dysphagia intervention, that recommendations are for dysphagia 1. With honey thick liquid, supervision with basic needs. Patient n eeds one-to-one feeding with cues to swallow. Patient continues on baricitinib along with dexamethasone and vitamin and zinc supplements and will continue. Patient was evaluated by neurology today who feels as increasing right-sided weakness. Brain CT of the head initially reveals embolic ischemic insults. A repeat brain CT has been ordered to compare. We will hold off any BARBARA at this time per neurology and cardiology recommendations. 08/06/2021 Pt is alert and oriented x 3 at the time of my examination. He reports breathing better, able to take a deep breath. He is now on a 5L HF cannula with oxygen saturations in the mid 90s. BP today is 122/76, HR 88, afebrile. Labs are reviewed today, include a WBC of 24.6, sodium of 132, B of 24, Cr 0.57. Inflammatory markers continue to be elevated. Neurology has signed off today. Pt was able to lift left upper extremity off the bed however drifted and touched the bed after 2 seconds, his hand grasp was unequal with left weaker than right. A repeat brain CT was ordered for increasing upper extremity weakness. 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 There is no acute bleed. Patient continues on baricitinib, dexamethasone, zinc, and vitamins and will continue. 08/07/2021 Patient was seen and evaluated in follow-up as morning continues to be closely monitored in the ICU. Patient stating his shortness of breath mildly worsened and was on 5 L and now 7 L high flow. White blood count elevated at 25.4 and hemoglobin is stable at 14.4, sodium is 132 with a potassium of 3.9 current creatinine is 0.56. Magnesium is 2.0. Multiple medical consultations including neurology, infectious disease, and pulmonary following. Chest x-ray today shows bilateral groundglass consolidation slightly worsened in the interval. Patient is fatigued although arousable and responding appropriately. Left-sided weakness continues. Patient continues on IV dexamethasone along with vitamin and zinc supplements continued on anti-coagulant in the form of Eliquis and Baricitinib. Patient was also maintained on sliding scale along with long acting insulin although sugars have been low and actually required one amp of dextrose for a sugar less than 50 and will discontinue long-acting and continue sliding scale as needed. 08/08/2021 Patient is seen and evaluated in follow-up currently placed on BiPAP as patient oxygen saturations continued to deteriorate and patient was more lethargic. Patient continues to be in the ICU being closely monitored. BiPAP FiO2 is 40%. Patient is continued on vitamin and zinc supplements along with baricitinib, IV dexamethasone and eliquis and will continue. Pulmonary following closely. Patient continues to be lethargic with continued poor oral intake an NG tube was placed and dietitian consulted to begin tube feeds. Recommend Accu-Cheks and use sliding scale as needed. Chest x-ray this morning shows persistent left greater than right bilateral multifocal and confluent opacification his consistent with COVID-19 and no significant change from previous. 08/09/2021 Patient is seen and evaluated this morning and having a brief episode of atrial fibrillation with RVR with a heart rate of 130's -150's and cardizem was ordered although IV lasix dose was given and oral metoprolol most recently and appears to have converted back in sinus rhythm. Patient was extremely restless and attempting to take bipap mask off. Patient was extremely anxious and expressing concern of having to have a bowel movement. Multiple medical consultations following. Medications being adjusted by cardiology and increasing metoprolol dose. Patient is maintained on eliquis and Baricitinib along with steroids and vitamin supplements. Continue tube feeds for nutritional support. 08/10/2021 Patient was seen and evaluated in follow-up this morning continues to be closely monitored in the ICU with multiple medical consultations including pulmonary concrete smoother, infectious disease, and neurology has been asked to reevaluate the patient as patient continues to have intermittent periods of confusion but doesn't appear to be a change from previous. Patient is extremely lethargic and maintained on BiPAP although is arousable but continues to fatigue easily and follows sleep. Repeat CT of the brain has been ordered and pending. Patient continues on gentle IV hydration along with vitamin and zinc supplements and is maintained on oral anticoagulant along with IV dexamethasone. Patient is tolerating tube feedings via NG tube and blood sugars now mildly elevated and will continue sliding scale and Accu-Cheks before meals and at bedtime. White blood count is elevated at 24.4 and hemoglobin is 12.4, sodium remains low at 131 with a potassium of 3.9 and current creatinine is 0.59. LFTs within normal limits and pro calcitonin is 0.05. Chest x-ray this morning shows continued patchy peripheral bilateral Covid pneumonia with some slight improvement on the left. 08/11/2021 Patient is seen this morning continues to be closely monitored in the ICU. Patient was bipap dependent and recently being transitioned to high flow nasal cannula and currently on 6L HF and per nursing staff continuing to wean as tolerated. Patient was able to work with physical therapy today and continues to be extremely weak. Multiple medical consultations following. Per nursing staff, patient will continue in the ICU with possible downgrade to the selective unit in the next few days. Blood sugars have been increasing and will continue sliding scale and will add long acting. 08/12/2021 Patient seen in the ICU, he is an overflow patient. O2 requirements down to 5 L nasal cannula today, he is alert but confused. Sodium level coming up to 131, he continues on Decadron, blood sugars 162 this afternoon. Chest x-ray repeated today showing bilateral groundglass opacities, no pneumothorax or pleural effusion. Continues in Nico feedings, NG tube in place. No fevers, hemodyna mically stable 08/13/2021 Patient seen on reevaluation he is transferred out of the ICU and on the medical floor. He is more alert today, following commands able to move his extremities when prompted 2. He remains nothing by mouth, speech to reevaluate if he fails he may require PEG tube placement. He is currently on 5 L nasal cannula saturating above 90%, afebrile, hemodynamically stable 08/14/2021 Patient is seen and evaluated currently on 4 S. and has recently been placed back on airvo for acute respiratory distress and in a team was called. Patient was in A. fib RVR also and given a dose of IV push Lopressor. Patient is extremely lethargic and difficult to arouse today. Plan was for speech to reevaluate the patient today to wean off tube feeds and consult has been placed for possible PEG tube with general surgery. Repeat brain CT somewhat a previous exam with no acute changes noted. Chest x-ray shows some pulmonary edema and pleural fluid that is not significantly different from previous exam and clearing of soft tissue air on the left lateral chest wall compared to old exam and patient will receive a dose of IV Lasix. IV fluids discontinued. 08/15/2021 Patient is seen in follow-up this morning recently brought back to the ICU as respiratory status deteriorated and patient is back on BiPAP with an FiO2 of 60%. Patient continues to be extremely lethargic and minimally arousable and continued on tube feeds. Patient's blood pressures have been low and maintained on IV hydration. Multiple medical consultations following including pulmonary concrete smoother and cardiology. Patient continued on IV dexamethasone along with oral anticoagulant and vitamin and zinc supplements and most recently started on IV Zosyn. Recommend to continue monitoring blood sugars closely as there was an episode of hypoglycemia last night and continued on sliding scale along with l lester-acting. Infectious disease also following. Chest x-ray today shows bilateral peripheral increased opacification is consistent with COVID-19 infection with no significant change from previous day. Family wishes for patient to remain full code with no intubation and will attempt again to address CODE STATUS as prognosis remains extremely guarded and poor. Patient also placed back on Cardizem drip for atrial fibrillation with RVR. 08/16/2021 Patient was seen and evaluated in follow-up this morning continues to be in the ICU being closely monitored. Patient is extremely lethargic and somewhat arousable following simple commands but falls asleep easily. Patient continues on BiPAP at 50%. Currently sinus rhythm and maintained on Lopressor 100 mg twice daily and Cardizem drip discontinued. Patient also continues on Eliquis which will be on hold as consult was placed for PEG tube placement as family would like to proceed with this. Patient is maintained on tube feedings via NG tube and surgery is planning for PEG tube in the morning. Patient also continues on IV dexamethasone along with vitamin and zinc supplements and IV Zosyn as well. Recommend continuing gentle IV hydration of normal saline at 75 ML per hour. Chest x-ray today which was personally reviewed by me shows bilateral lung infiltrates greater on the left possibly compatible with atypical pneumonia. Labs: WBC 16.2, hemoglobin 9.0, platelets 134, sodium is 135, potassium 3.5, BUN 31, creatinine is 0.53, d-dimer is 3.01, LDH is 1033, alk phos is 231 and LFTs within normal limits and CRP is trending down at 15.9 today. Review of systems: Unable to obtain as patient is lethargic and minimally arousable fatigues extremely easily All medications have been reviewed Active Medications Acetaminophen (Acetaminophen Tab 325 Mg Tab) 650 mg PO Q4HR PRN PRN Reason: Fever and/ or Pain Last Admin: 08/14/21 20:19 Dose: 650 mg Documented by: Ascorbic Acid (Ascorbic Acid 500 Mg Tab) 500 mg PO DAILY [facility] Last Admin: 08/16/21 08:43 Dose: 500 mg Documented by: Atorvastatin Calcium (Atorvastatin 40 Mg Tab) 40 mg PO HS [facility] Last Admin: 08/15/21 20:56 Dose: 40 mg Documented by: Calcium Carbonate/Glycine (Calcium Carbonate 500 Mg Chewable) 500 mg PO TID PRN PRN Reason: Heartburn Last Admin: 08/06/21 08:37 Dose: 500 mg Documented by: Cholecalciferol (Cholecalciferol 10 Mcg (400 Iu) Tablet) 10 mcg PO DAILY [facility] Last Admin: 08/16/21 08:44 Dose: 10 mcg Documented by: Dexamethasone Sodium Phosphate (Dexamethasone Sod Phosphate 10 Mg/Ml 1 Ml Vial) 6 mg IV DAILY [facility] Last Admin: 08/16/21 08:43 Dose: 6 mg Documented by: Piperacillin Sod/Tazobactam (Sod 3.375 gm/ Sodium Chloride) 100 mls @ 25 mls/hr IVPB Q8HR [facility] Last Admin: 08/16/21 08:42 Dose: 25 mls/hr Documented by: Diltiazem HCl 125 mg/ Sodium (Chloride) 125 mls @ 5 mls/hr IV .Q24H [facility] Last Admin: 08/15/21 19:06 Dose: Not Given Documented by: Norepinephrine Bitartrate 4 mg (/ Sodium Chloride) 254 mls @ 11.43 mls/hr IV .[id number] [facility]; Protocol Last Titration: 08/15/21 04:20 Dose: 0 mcg/kg/min, 0 mls/hr Documented by: Sodium Chloride (Saline 0.9%) 1,000 mls @ 75 mls/hr IV .[id number] [facility] Last Admin: 08/16/21 07:00 Dose: 75 mls/hr Documented by: Insulin Aspart (Insulin Aspart (Novolog) 100 Unit/Ml Vial) 0 unit SQ Q6HR [facility]; Protocol Last Admin: 08/16/21 11:52 Dose: 1 unit Documented by: Insulin Detemir (Insulin Detemir (Levemir) 100 Unit/Ml Syr) 15 unit SQ HS [facility] Last Admin: 08/15/21 20:57 Dose: 15 unit Documented by: Metoprolol Tartrate (Metoprolol Tartrate 50 Mg Tab) 100 mg PO BID [facility] Last Admin: 08/16/21 08:43 Dose: 100 mg Documented by: Miscellaneous Information (Potassium Replacement Protocol 1 Each Misc) 1 each MISCELLANE DAILY PRN; Protocol PRN Reason: Per Protocol Miscellaneous Information (Magnesium Replacement Protocol 1 Each Misc) 1 each MISCELLANE DAILY PRN; Protocol PRN Reason: Per Protocol Pantoprazole Sodium (Pantoprazole 40 Mg/10 Ml Vial) 40 mg IVP BID [facility] Last Admin: 08/16/21 08:43 Dose: 40 mg Documented by: Sodium Chloride (Sodium Chloride 0.9% Flush 10 Ml Syringe) 10 ml IV Q4HR PRN PRN Reason: PICC Line Sodium Chloride (Sodium Chloride 0.9% Flush 10 Ml Syringe) 10 ml IV WEEKLY [facility] Last Admin: 08/16/21 09:00 Dose: 10 ml Documented by: Sodium Chloride (Sodium Chloride 0.9% Flush 10 Ml Syringe) 20 ml IV Q4HR PRN PRN Reason: PICC Line Zinc Sulfate (Zinc Sulfate 220 Mg Cap) 220 mg PO DAILY [facility] Last Admin: 08/16/21 08:44 Dose: 220 mg Documented by: PHYSICAL EXAMINATION: GENERAL: The patient is alert and oriented x1, extremely lethargic. Minimally responsive. Awakes minimally and following simple commands but falls asleep easily Thin built. Continues on BiPAP. Temp is 98.6, pulse is 83, resp are 18, blood pressure is 153/71, and 02 is 100% on BiPAP at 50% HEENT: Pupils are round and equally reacting to light. EOMI. No scleral icterus. No conjunctival pallor. Normocephalic, atraumatic. No pharyngeal erythema. No thyromegaly. NG tube noted CARDIOVASCULAR: S1 and S2 muffled. PULMONARY: Diffuse bilateral coarse rhonchi and scattered crackles noted with diminished breath sounds at the bases ABDOMEN: Soft, nontender, nondistended, normoactive bowel sounds. No palpable organomegaly. MUSCULOSKELETAL: No joint swelling or deformity. EXTREMITIES: No cyanosis, clubbing, or pedal edema. NEUROLOGICAL: Minimally arousable, extremely lethargic alert and oriented 1 and fatigued and falls asleep easily. Diffusely weak SKIN: No rashes. 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 Continue with weaning 02 as tolerated. Continued on eliquis, IV dexamethasone, vitamin and zinc supplements. Patient has received Baricitinib. Patient remains in the ICU and is on the BiPAP at 50% remains minimally responsive although will awake and follows simple commands but falls right back asleep. Multiple medical consultations following. Gen. surgery has been consulted with possibility of PEG tube placement tomorrow and will hold eliquis for PEG tube. Due to multiple complex medical issues, Prognosis is extremely poor and guarded. Objective - Vital Signs Vital signs: Vital Signs Temp 97.1 F L 08/16/21 04:00 Pulse 80 08/16/21 07:00 Resp 18 08/16/21 07:00 BP 154/65 08/16/21 07:00 Pulse Ox 99 08/16/21 07:00 Intake & Output 08/15/21 08/16/21 08/16/21 18:59 06:59 18:59 Intake Total 1434 1806 Output Total 565 705 Balance 869 1101 Weight 63.1 kg 63.1 kg Intake: IV 570 975 0.9 @ 20mL/hr 570 975 Tube Feeding 684 741 Other 180 90 Output: Urine 565 705 Other: Voiding Method Indwelling Catheter Indwelling Catheter - Labs CBC & Chem 7: 08/16/21 03:50 08/16/21 03:50 Labs: Abnormal Lab Results - Last 24 Hours (Table) 08/14/21 08/15/21 08/15/21 Range/Units 04:45 05:40 11:47 WBC (3.8-10.6) k/uL RBC (4.30-5.90) m/uL Hgb (13.0-17.5) gm/dL Hct (39.0-53.0) % Plt Count (150-450) k/uL Neutrophils # (1.3-7.7) k/uL Lymphocytes # (1.0-4.8) k/uL D-Dimer (<0.60) mg/L FEU Sodium (137-145) mmol/L Chloride (98-107) mmol/L BUN (9-20) mg/dL Creatinine (0.66-1.25) mg/dL Glucose (74-99) mg/dL POC Glucose (mg/dL) 262 H (75-99) mg/dL Calcium (8.4-10.2) mg/dL Ferritin 1071.0 H (22.0-322.0) ng/mL Alkaline Phosphatase (38-126) U/L Lactate Dehydrogenase (313-618) U/L C-Reactive Protein (<1.0) mg/dL Total Protein (6.3-8.2) g/dL Albumin (3.5-5.0) g/dL Procalcitonin 0.26 H (0.02-0.09) ng/mL 08/15/21 08/15/21 08/16/21 Range/Units 17:43 23:25 03:50 WBC 16.2 H (3.8-10.6) k/uL RBC 3.14 L (4.30-5.90) m/uL Hgb 9.0 L (13.0-17.5) gm/dL Hct 27.8 L (39.0-53.0) % Plt Count 134 L (150-450) k/uL Neutrophils # 15.2 H (1.3-7.7) k/uL Lymphocytes # 0.5 L (1.0-4.8) k/uL D-Dimer (<0.60) mg/L FEU Sodium (137-145) mmol/L Chloride (98-107) mmol/L BUN (9-20) mg/dL Creatinine (0.66-1.25) mg/dL Glucose (74-99) mg/dL POC Glucose (mg/dL) 233 H 328 H (75-99) mg/dL Calcium (8.4-10.2) mg/dL Ferritin (22.0-322.0) ng/mL Alkaline Phosphatase (38-126) U/L Lactate Dehydrogenase (313-618) U/L C-Reactive Protein (<1.0) mg/dL Total Protein (6.3-8.2) g/dL Albumin (3.5-5.0) g/dL Procalcitonin (0.02-0.09) ng/mL 08/16/21 08/16/21 Range/Units 03:50 03:50 WBC (3.8-10.6) k/uL RBC (4.30-5.90) m/uL Hgb (13.0-17.5) gm/dL Hct (39.0-53.0) % Plt Count (150-450) k/uL Neutrophils # (1.3-7.7) k/uL Lymphocytes # (1.0-4.8) k/uL D-Dimer 3.01 H (<0.60) mg/L FEU Sodium 135 L (137-145) mmol/L Chloride 108 H (98-107) mmol/L BUN 31 H (9-20) mg/dL Creatinine 0.53 L (0.66-1.25) mg/dL Glucose 271 H (74-99) mg/dL POC Glucose (mg/dL) (75-99) mg/dL Calcium 7.0 L (8.4-10.2) mg/dL Ferritin (22.0-322.0) ng/mL Alkaline Phosphatase 231 H (38-126) U/L Lactate Dehydrogenase 1033 H (313-618) U/L C-Reactive Protein 15.9 H (<1.0) mg/dL Total Protein 4.2 L (6.3-8.2) g/dL Albumin 1.8 L (3.5-5.0) g/dL Procalcitonin (0.02-0.09) ng/mL
[2021-08-16 18:15] LABS: Glucose,Whole Blood 260 mg/dL (75-99)
[2021-08-16] MEDS: DILTIAZEM 125 MG in SODIUM CHLORIDE 0.9% 100 ML IV SCH (19:02)
[2021-08-16] MEDS: NOREPINEPHRINE 4 MG in SODIUM CHLORIDE 0.9% 250 ML IV SCH (20:45)
[2021-08-16] MEDS: INSULIN DETEMIR (LEVEMIR) 100 UNIT/ML SYR SQ SCH (20:52)
[2021-08-16] MEDS: ATORVASTATIN 40 MG TAB PO SCH (20:52)
[2021-08-16 21:12] LABS: Glucose,Whole Blood 242 mg/dL (75-99)
[2021-08-16 23:36] LABS: Glucose,Whole Blood 232 mg/dL (75-99)
[2021-08-17] MEDS: SODIUM CHLORIDE 0.9% 1,000 ML IV SCH (01:08)
[2021-08-17] MEDS ORDERED: NITROGLYCERIN SL TABS 0.4 MG TAB SUBLINGUAL STA (04:38)
[2021-08-17] MEDS ORDERED: NITROGLYCERIN SL TABS 0.4 MG TAB SUBLINGUAL ONE (04:42)
[2021-08-17 04:45] LABS: Basophils % (A) 0 %; Eosinophils # (A) 0.2 k/uL (0-0.7); Eosinophils % (A) 1 %; HCT 30.2 % (39.0-53.0); HGB 9.9 gm/dL (13.0-17.5); Lymphocytes % (A) 6 %; MCH 28.2 pg (25.0-35.0); MCHC 32.9 g/dL (31.0-37.0); MCV 85.8 fL (80.0-100.0); Mean Platelet Volume 8.9; Monocytes # (A) 0.3 k/uL (0-1.0); Monocytes % (A) 2 %; Neutrophils # (A) 15.9 k/uL (1.3-7.7); Neutrophils % (A) 91 %; Platelet Count 176 k/uL (150-450); RBC 3.52 m/uL (4.30-5.90); RDW 15.6 % (11.5-15.5); WBC 17.5 k/uL (3.8-10.6)
[2021-08-17 04:59] LABS: African American GFR (CKD) >90 (>60 ml/min/1.73 sqM); Albumin 2.3 g/dL (3.5-5.0); Anion Gap 5 mmol/L; Blood Urea Nitrogen 30 mg/dL (9-20); Carbon Dioxide 26 mmol/L (22-30); Chloride 100 mmol/L (98-107); Glucose 222 mg/dL (74-99); Non-African American GFR(CKD) >90 (>60 ml/min/1.73 sqM); Sodium 131 mmol/L (137-145); Total Protein 4.9 g/dL (6.3-8.2)
[2021-08-17 05:00] LABS: ALT 51 U/L (4-49); AST 67 U/L (17-59); Alkaline Phosphatase 257 U/L (38-126); Total Bilirubin 0.7 mg/dL (0.2-1.3)
[2021-08-17 06:12] LABS: Glucose,Whole Blood 227 mg/dL (75-99)
[2021-08-17] MEDS ORDERED: HYDROmorphone 0.5 MG/0.5 ML SYRINGE IVP PRN (06:13)
[2021-08-17] MEDS ORDERED: HYDROmorphone 1 MG/ML 1 ML SYRINGE IVP PRN (06:13)
--- NOTE | 2021-08-17 06:34 | PN ---
PROGRESS NOTE DATE OF SERVICE: 08/16/2021 REASON FOR FOLLOWUP: Pneumonia. INTERVAL HISTORY: The patient is afebrile. The patient remains to be BIPAP dependent. The patient is hemodynamically stable, not on pressor support. No vomiting, diarrhea or any other changes reported by the nursing staff. Patient himself unable to provide any history. PHYSICAL EXAMINATION: Blood pressure is 173/90 with a pulse of 80, temperature 98.2. He is 98% on 40% FiO2. General description is an elderly male on BiPAP lying in bed in no distress. Respiratory system: Unlabored breathing, decreased intensity of breath sounds. No wheeze. Heart S1, S2. Regular rate and rhythm. Abdomen soft, nontender. Extremities: No edema of the feet. LABS: Hemoglobin is 9.1, white count is down to 16.2. BUN of 31, creatinine 0.53. DIAGNOSTIC IMPRESSION AND PLAN: Patient with acute respiratory failure, multifactorial with initial diagnosis of COVID- 19 pneumonia and a question of possible aspiration pneumonia. The patient is currently covered with Zosyn that will be continued for now. Try to obtain a sputum to narrow his antibiotics and monitor clinical course closely. MMODL / IJN: [id number] /
--- NOTE | 2021-08-17 06:44 | XR ---
EXAMINATION TYPE: XR chest 1V portable DATE OF EXAM: 08/17/2021 CLINICAL HISTORY: Difficulty breathing progress study. TECHNIQUE: Single AP portable supine view of the chest is obtained. COMPARISON: Chest x-ray from one day earlier and older studies. FINDINGS: Stable oral gastric tube and left-sided PICC line. Cardiac silhouette size is stable and within normal limits with atherosclerotic change aortic knob. D iffuse reticular increased opacities bilaterally remain present greatest in the periphery and slightl y more prominent in the left lung versus right lung. IMPRESSION: Bilateral multifocal increased opacities consistent with covid-19 infection are redemonst rated. No significant change from one day earlier.
[2021-08-17] MEDS: PIPERACILLIN-TAZOBACTAM 3.375 GM in SODIUM CHLORIDE 0.9% 100 ML IVPB SCH ×3 (08:20→23:22)
[2021-08-17] MEDS: INSULIN ASPART (NovoLOG) 100 UNIT/ML VIAL SQ SCH ×4 (09:00→23:02)
[2021-08-17] MEDS: ASCORBIC ACID 500 MG TAB PO SCH (09:01)
[2021-08-17] MEDS: CHOLECALCIFEROL 10 MCG (400 IU) TABLET PO SCH (09:01)
[2021-08-17] MEDS: ZINC SULFATE 220 MG CAP PO SCH (09:01)
[2021-08-17] MEDS: METOPROLOL TARTRATE 50 MG TAB PO SCH ×2 (09:04→20:38)
[2021-08-17] MEDS: PANTOPRAZOLE 40 MG/10 ML VIAL IVP SCH ×2 (09:04→20:38)
[2021-08-17] MEDS: DEXAMETHASONE SOD PHOSPHATE 10 MG/ML 1 ML VIAL IV SCH (09:04)
[2021-08-17] MEDS ORDERED: FUROSEMIDE 10 MG/ML 4 ML VIAL IV STA (09:13)
--- NOTE | 2021-08-17 09:38 | P.PN ---
Subjective Progress Note Date: 08/17/21 Principal diagnosis: COVID 19 On 08/13/2021 patient seen in follow-up on medical surgical floor. He is lethargic on today's exam, but does arouse to voice, he answers simple ques tions, he follows simple command, appears very weak, but breathing comfortably, he is currently on 5 L of oxygen with pulse ox of 92-97%, his been afebrile, doesn't appear to be in any acute distress, however his head is laying down on his shoulder, does not seem to be able to hold up his head erect. He knew the place and is oriented to person, but he thinks the president is Shlomo, and after a couple of hints he did say that the president is Etienne. His NG tube remains in place, and he has tube feedings infusing, he has been tolerating tube feedings well, she remains on Decadron 6 mg daily, he is on Eliquis 5 mg twice daily, he continues on IV fluids with 0.9 at 75. His chest x-ray from yesterday shows bilateral groundglass opacities within the lungs, NG tube is in appropriate position, no evident pneumothorax or pleural effusion, and there is a left-sided PICC line in place. Today's labs have been reviewed, his white blood cell count is improving and is down to 18.6, hemoglobin is 11.6, his sodium is improving and is up to 133, the rest of electrolytes were within normal limits, BUN is 21 creatinine 0.62, his ALT is up slightly at 53, AST was 51, alkaline phosphatase is relatively stable at 191 up slightly from 182, and his last pro-calcitonin that was done on 08/10/2021 was negative at 0.05. Patient has had no fever or chills. Patient has been nothing by mouth in view of his hypoxia, BiPAP dependence, recent stroke this admission, and overall generalized weakness and high aspiration risk. We'll obtain speech evaluation On 08/14/2021 patient seen in follow-up on medical surgical floor, he is more lethargic on today's exam, he requires repeated for most stipulation, and tactile stimulation to open his eyes, does not appear to be in any acute distress, rapid response team was called last night, for worsening hypoxia, tachypnea, and his heart rate was in the 130s, A. fib with RVR, his blood pressure was elevated at greater than 190 systolic. Patient was noted to have oxygen saturations in the low 80s on the 100% non-rebreather. He did have a temp of 101.5F, chest x-ray was repeated showing pulmonary edema and pleural fluid is not significantly different from his last exam. Patient was placed on Airvo on which she remains, initially at 60 L an FiO2 of 93%, his pulse ox did improve. Subsequently his FiO2 was dropped down to 80%, his pulse ox is still 96-99%. Today's labs show increased white blood cell, which is currently at 33.2, hemoglobin of 12.7, d-dimer is 14.04, sodium is 131, potassium is 4.0, chloride is 95, BUN is 25 creatinine 0.61. Remains on Decadron 6 mg daily, she was given a dose of IV push Lopressor, he continues on Lopressor 100 mg by mouth twice daily. His mentation remains lethargic, and patient is an increased risk for aspiration. He was supposed to be seen by speech therapy today and have a swallow evaluation to evaluate for potential ability to eat by mouth. It was suspected that he will need a PEG tube. He still has the NG tube in his nose, and receiving tube feedings with vital AF at rate of 57. On 08/15/2021 patient seen in follow-up in intensive care unit where she was transferred last night. Patient continued to desaturate on the floor, and required to be placed on BiPAP support, currently with pressures of 16 and 10 and FiO2 of 90%. Remains extremely lethargic. Afebrile, and not requiring any vasopressor support, he is on 0.9 normal significantly to 20 ML per hour, he has not been able to complete swallow evaluation related to his extremely poor mental status, which seems to be worsening. Repeat brain CT yesterday showed a cerebral bilaterally, no acute intracranial abnormality, and old right thalamic lacunar infarct. No change from previous CT of the brain. Yesterday we empirically started the patient on Zosyn for possibility of aspiration related pneumonitis. This white blood cell count is slightly improved today, however still elevated at 29.8, hemoglobin is 10.4, d-dimer is down to 3.8, sodium is 134, potassium 3.7, chloride is 100, B1 is 35, creatinine 0.71, LDH is down to 1462, improving, CRP is up to 19.9. Patient continues on Eliquis, currently remains in sinus mechanism with a controlled rate, yesterday during episode of worsening dyspnea and hypoxia, he was requiring Cardizem infusion for rate control, Cardizem drip is currently discontinued. Addition patient continues on dexamethasone 6 mg daily, COVID vitamins. Today's chest x-ray shows bilateral peripheral increased opacities consistent with COVID-19 infection. No significant change from one day earlier, patient's spouse was updated on his condition, and the decision was made not to proceed with intubation and placement on mechanical ventilator should his condition continued to deteriorate. On 08/17/2021 patient seen in follow-up in the intensive care unit. he still very lethargic, he barely opens his eyes to repeated verbal and tactile stimulation, he is currently on BiPAP support with pressures of 16/10, and FiO2 of 40%, his pulse ox is 94%. NG tube remains in place for tube feedings that are currently on hold, general surgery has been consulted for placement of PEG tube which is scheduled for today. Patient is on 0.9 normal sinus rate is 75 ML per hour, he remains on Zosyn for possibility of aspiration pneumonia. he remains on Decadron 6 mg once daily, he is on COVID vitamins. He is not requiring any vasopressor support. Level of consciousness and his mental status have remained abnormal, patient has been quite somnolent, she suspected to have abnormal swallowing, and aspiration pneumonia. Been afebrile, blood pressure is elevated with the systolic in the 160s to 170s, and diastolic in the 70s and 80s. He is currently in A. fib with RVR with a rate of 157. Patient has not had his morning medications yet, he is due for his Lopressor dose 100 mg per the PEG tube. Anticoagulation is on hold right now for PEG tube placement. Generally patient appears to be very swollen. Patient's weight is up by 0.4 kg in last 24 hours, and overall patient is at least 11 kg positive since admission. Urine output is in the order of 100-200 mL an hour. Patient does not appear to be in any acute distress, however he needs positive pressure ventilation intermittently and at bedtime. he could be placed on high flow nasal cannula intermittently. Objective - Vital Signs Vital signs: Vital Signs Temp 97.8 F 08/17/21 04:00 Pulse 95 08/17/21 07:00 Resp 17 08/17/21 07:00 BP 167/70 08/17/21 07:00 Pulse Ox 97 08/17/21 07:00 Intake & Output 08/16/21 08/17/21 08/17/21 18:59 06:59 18:59 Intake Total 1922 1657 75 Output Total 866 1716 100 Balance 1056 -59 -25 Weight 63.1 kg 63.5 kg Intake: IV 825 900 75 0.9 @ 75mL/hr 825 900 75 Intake, IV Titration 300 100 Amount Piperacillin-Tazobactam 3 200 100 .375 gm In Sodium Chloride 0.9% 100 ml @ 25 mls/hr IVPB Q8HR [facility] Rx# :[id number] Potassium Chloride 20 meq 100 In Water For Injection 1 100ml.bag @ 50 mls/hr IVPB Q2H [facility] Rx#: [id number] Tube Feeding 627 627 Other 170 30 Output: Urine 865 1716 100 Stool 1 Other: Voiding Method Indwelling Catheter Indwelling Catheter - Exam GENERAL EXAM:lethargic, 75-year-old patient is currently on BiPAP support with pressures of 16/10 and FiO2 of 40%, patient is extremely lethargic. HEAD: Normocephalic/atraumatic. EYES: Normal reaction of pupils, equal size. Conjunctiva pink, sclera white. NOSE: Clear with pink turbinates.NG tube is in place, patient is receiving tube feedings THROAT: No erythema or exudates. NECK: No masses, no JVD, no thyroid enlargement, no adenopathy. CHEST: No chest wall deformity. Symmetrical expansion. LUNGS: Equal air entry with no crackles, wheeze, rhonchi or dullness. CVS: Regular rate and rhythm, normal S1 and S2, no gallops, no murmurs, no rubs ABDOMEN: Soft, nontender. No hepatosplenomegaly, normal bowel sounds, no guarding or rigidity. EXTREMITIES: No clubbing, generalized edema, no cyanosis, 2+ pulses and upper and lower extremities. MUSCULOSKELETAL: Muscle strength and tone weak SPINE: No scoliosis or deformity SKIN: No rashes CENTRAL NERVOUS SYSTEM: Lethargic. Left sided weakness with weaker left human resources temp - Labs CBC & Chem 7: 08/17/21 04:05 08/17/21 04:05 Labs: Abnormal Lab Results - Last 24 Hours (Table) 08/16/21 08/16/21 08/16/21 Range/Units 03:50 11:32 18:14 WBC (3.8-10.6) k/uL RBC (4.30-5.90) m/uL Hgb (13.0-17.5) gm/dL Hct (39.0-53.0) % RDW (11.5-15.5) % Neutrophils # (1.3-7.7) k/uL Sodium (137-145) mmol/L BUN (9-20) mg/dL Creatinine (0.66-1.25) mg/dL Glucose (74-99) mg/dL POC Glucose (mg/dL) 139 H 260 H (75-99) mg/dL Calcium (8.4-10.2) mg/dL Ferritin 989.0 H (22.0-322.0) ng/mL AST (17-59) U/L ALT (4-49) U/L Alkaline Phosphatase (38-126) U/L Total Protein (6.3-8.2) g/dL Albumin (3.5-5.0) g/dL 08/16/21 08/16/21 08/17/21 Range/Units 21:10 23:34 04:05 WBC 17.5 H (3.8-10.6) k/uL RBC 3.52 L (4.30-5.90) m/uL Hgb 9.9 L (13.0-17.5) gm/dL Hct 30.2 L (39.0-53.0) % RDW 15.6 H (11.5-15.5) % Neutrophils # 15.9 H (1.3-7.7) k/uL Sodium (137-145) mmol/L BUN (9-20) mg/dL Creatinine (0.66-1.25) mg/dL Glucose (74-99) mg/dL POC Glucose (mg/dL) 242 H 232 H (75-99) mg/dL Calcium (8.4-10.2) mg/dL Ferritin (22.0-322.0) ng/mL AST (17-59) U/L ALT (4-49) U/L Alkaline Phosphatase (38-126) U/L Total Protein (6.3-8.2) g/dL Albumin (3.5-5.0) g/dL 08/17/21 08/17/21 Range/Units 04:05 06:10 WBC (3.8-10.6) k/uL RBC (4.30-5.90) m/uL Hgb (13.0-17.5) gm/dL Hct (39.0-53.0) % RDW (11.5-15.5) % Neutrophils # (1.3-7.7) k/uL Sodium 131 L (137-145) mmol/L BUN 30 H (9-20) mg/dL Creatinine 0.55 L (0.66-1.25) mg/dL Glucose 222 H (74-99) mg/dL POC Glucose (mg/dL) 227 H (75-99) mg/dL Calcium 8.0 L (8.4-10.2) mg/dL Ferritin (22.0-322.0) ng/mL AST 67 H (17-59) U/L ALT 51 H (4-49) U/L Alkaline Phosphatase 257 H (38-126) U/L Total Protein 4.9 L (6.3-8.2) g/dL Albumin 2.3 L (3.5-5.0) g/dL Assessment and Plan Plan: #1. Acute hypoxic respiratory failure secondary to COVID-19 pneumonia, and aspiration pneumonia patient was on BiPAP support. On 08/14/2021 patient had to be transferred back to the intensive care unit for worsening hypoxia and placed on BiPAP support with pressures of 16 and 10 and FiO2 of 100% #2. 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 #4. Left-sided weakness related to recent history of embolic CVA during this admission #5. Chronic atrial fibrillation, currently in sinus mechanism, patient has been on Eliquis #6. Elevated inflammatory markers secondary to COVID-19 pneumonia, and they are currently improving #7. Type 2 diabetes mellitus #8. Dyslipidemia #9. Worsening leukocytosis with negative procalcitonin level, we'll repeat a pro-calcitonin level #10. Overall general medical debility from COVID-19 pneumonia, and prolonged hospitalization Plan: Continue current medical treatment Continue with BiPAP support intermittently, FiO2 is currently down to 40%, pa tient may be trialed on high flow nasal cannula Patient's level of consciousness is still quite lethargic, repeat brain CT showed no acute changes Appears to be quite fluid overloaded Making adequate urine, we'll contact IV fluids to KVO Given the patient 1 dose of IV Lasix 40 mg Maintain aspiration precautions, Continue Zosyn, pro-calcitonin level is low suggesting no bacterial infection, possibly aspiration pneumonitis Continue Decadron Anticoagulation is currently on hold for PEG tube placement Continue metoprolol for rate control His prognosis is quite guarded The spouse wishes no intubation and mechanical ventilation, and supportive treatment only I performed a history & physical examination of the patient and discussed their management with my nurse practitioner, Emily Tovar. I reviewed the nurse practitioner's note and agree with the documented findings and plan of care. Jeniffer ng sounds are positive for diminished breath sounds throughout the lung [place]. The findings and the impression was discussed with the patient. I attest to the documentation by the nurse practitioner. Time with Patient: Greater than 30
[2021-08-17 11:31] LABS: Glucose,Whole Blood 58 mg/dL (75-99)
[2021-08-17] MEDS ORDERED: DEXTROSE 50% SYRINGE 50 ML IVP STA ×2 (11:32→15:26)
[2021-08-17] MEDS ORDERED: DEXTROSE 50% SYRINGE 50 ML IVP ONE (11:33)
[2021-08-17 11:34] LABS: Glucose,Whole Blood 60 mg/dL (75-99)
[2021-08-17 11:50] LABS: Glucose,Whole Blood 154 mg/dL (75-99)
[2021-08-17] MEDS ORDERED: KETAMINE 10 MG/ML 20 ML VIAL ONE (12:20)
[2021-08-17] MEDS ORDERED: PROPOFOL 10 MG/ML 20 ML VIAL IV ONE (12:20)
--- NOTE | 2021-08-17 12:20 | PN ---
PROGRESS NOTE Rick is a 75-year-old gentleman that is admitted to hospital with Covid pneumonia, respiratory failure, intubated on vent. We were involved in the case because of the episodes of atrial fibrillation. He has 1 short self-limited run of atrial fibrillation. After that, went back into sinus rhythm. This morning his heart rate is 89 beats per minute. Blood pressure is 156/72. Respirations 18. Rest of the exam has not been performed. The patient is on isolation. Labs show that the hemoglobin is 9.9, potassium is 4. Creatinine is 0.5. ASSESSMENT: Paroxysmal atrial fibrillation. PLAN: Patient will continue with the beta-vián that he is on and the anticoagulant that is on wall on. MMODL / IJN: [id number] /
[2021-08-17 15:23] LABS: Glucose,Whole Blood 65 mg/dL (75-99)
[2021-08-17] MEDS ORDERED: DEXTROSE 5% IN WATER 1,000 ML IV ONE (15:27)
--- NOTE | 2021-08-17 15:29 | P.PN ---
Subjective Progress Note Date: 08/17/21 Patient is a 75 -year-old pleasant male was transferred from a outside hospital for atrial fibrillation with rapid ventricular rate. Patient is presently on therapeutic dose of Lovenox. Also has highly elevated INR. His baseline creatinine is unknown but his present creatinine is around the 0.66, patient is receiving half-normal saline at 75 mL per hour patient is also on Remdesivir, presently on 15 L of oxygen, CT of the chest did not show any pulmonary embolism but did show diffuse infiltrate patient was having symptoms for about 4 days patient was unable to provide much of history to me patient is too tired and weak. Patient is not tolerating any by mouth medications at this time because of which patient was started on IV Cardizem patient usually takes metoprolol 25 twice a day. Patient doesn't have any history of congestive heart failure. Patient was started on Decadron as well. Patient has highly elevated d-dimer. 08/01/2021 Patient is seen in follow-up continues to be closely monitored in the ICU. Patient is extremely lethargic although is arousable and intermittently resp onding appropriately to questions and commands. Patient continues to have delayed response and altered mental status and CT of the brain was ordered. Neurology has been consulted and pulmonary along with urology following closely. She continues on IV heparin along with IV Cardizem. white blood count is 14.1, hemoglobin is stable at 16.1, d-dimer is above 34.10, sodium is 141 with a potassium of 4.5 and current creatinine is 0.61. LDH is 30-55 and CRP is 6.3. TSH is 0.112 and free T4 is 4.06. patient is maintained on 15 L high flow nasal cannula along with occasional intermittent nonrebreather. Patient is afebrile. 08/02/2021 Patient is seen in follow up this morning and is being closely monitored in the ICU with multiple medical consultations following including pulmonary, infectiou s disease, cardiology, and neurology. CT of the brain recommending MRI and this is ordered and pending. Patient is on 13L HF nasal cannula. Mentation slowly improving and answering questions appropriately. Patient continues to be extremely weak and fatigues easily. Cardiology planning to transition cardizem to oral and possibly starting eliquis. 08/03/2021 Patient is seen and evaluated in follow-up this morning and patient continues to improve although continues to be extremely weak and fatigued. Multiple medical consultations following an neurology recommending BARBARA although was reviewed by cardiology and no plans for BARBARA at this time as MRI along with CT confirms embolic stroke with MRI showing a few scattered areas of restricted diffusion in the inferior cerebellar hemispheres bilaterally with scattered areas of restricted diffusion present in the cerebellum, occipital lobes, as well as bilateral parietal lobes. Patient continued on subcutaneous heparin with discussion of possibly starting Eliquis in the next 2 days. Patient has been started on Brilinta an neurology is following closely. Speech has evaluated the patient and recommending continuing the patient with nothing by mouth except medications as the swallow eval was not able to be completed due to extreme fatigue and lethargy. Speech will reevaluate the patient once more alert and awake. White blood count today is 17.6 with a hemoglobin of 14.6, d-dimer is elevated at 27.78, sodium is 135 with a potassium of 3.6, BUN is 33 and creatinine is 0.59. Blood sugars are being closely monitored. Repeat x-ray and labs along with inflammatory markers in the a.m. Continuing to wean as tolerated and patient is maintained on 9 L high flow and maintaining oxygen saturations of 97%. Patient with atrial fibrillation currently rate controlled with metoprolol and cardiology is following. 08/04/2021 Patient is seen in follow-up this morning continues to be in the ICU and continues to drift often fall asleep easily although mentation has improved. Patient states the year as 1990 but also states he knows that is wrong and states he is currently in the hospital for Covid but was unaware of any recent stroke. Right side forepart reducer strength 4/5 improving although patient is unable to completely lift extremity and left side forepart reducer strength continues to be weak 2/5 and completely unable to lift this extremity. Multiple medical consultations including neurology, cardiology, wastewater treatment plant chemist along with infectious disease following closely. Patient being resumed on Eliquis and Brilinta has been discontinued. Chest x-ray today shows diffuse mild infiltrates greater on the left that can be compatible with atypical pneumonia. Awaiting repeat swallow eval today with the possibility of TPN for enteral nutrition as patient has been nothing by mouth. Patient continues on 11 L high flow and recommend to wean as tolerated. White blood count today is 27.3 with a hemoglobin of 15.6, d-dimer is 24.3, sodium is 131 with a potassium of 4.9, BUN is 26 and creatinine is 0.59. CRP is 4.3. Patient continues on baricitinib along with dexamethasone and vitamin and zinc supplements and will continue. 08/05/2021 Patient is evaluated today in the ICU, he is maintained on a BiPAP at the time of my assessment. Plan is to titrate oxygen as needed. Chest x-ray today reveals persistent left greater than right bilateral multifocal opacities. Labs are reviewed, White blood cell count 25.2. His d-dimer today is elevated at 29.09 which is slightly increased. LDH is 2286, CRP 5.8, pro calcitonin 0.07. Sodium today is 131. Vital signs include blood pressure 113/62. Respirations are 20s. Patient has remained afebrile. Swallow evaluation was conducted again today for follow-up for dysphagia intervention, that recommendations are for dysphagia 1. With honey thick liquid, supervision with basic needs. Patient n eeds one-to-one feeding with cues to swallow. Patient continues on baricitinib along with dexamethasone and vitamin and zinc supplements and will continue. Patient was evaluated by neurology today who feels as increasing right-sided weakness. Brain CT of the head initially reveals embolic ischemic insults. A repeat brain CT has been ordered to compare. We will hold off any BARBARA at this time per neurology and cardiology recommendations. 08/06/2021 Pt is alert and oriented x 3 at the time of my examination. He reports breathing better, able to take a deep breath. He is now on a 5L HF cannula with oxygen saturations in the mid 90s. BP today is 122/76, HR 88, afebrile. Labs are reviewed today, include a WBC of 24.6, sodium of 132, B of 24, Cr 0.57. Inflammatory markers continue to be elevated. Neurology has signed off today. Pt was able to lift left upper extremity off the bed however drifted and touched the bed after 2 seconds, his hand grasp was unequal with left weaker than right. A repeat brain CT was ordered for increasing upper extremity weakness. 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 There is no acute bleed. Patient continues on baricitinib, dexamethasone, zinc, and vitamins and will continue. 08/07/2021 Patient was seen and evaluated in follow-up as morning continues to be closely monitored in the ICU. Patient stating his shortness of breath mildly worsened and was on 5 L and now 7 L high flow. White blood count elevated at 25.4 and hemoglobin is stable at 14.4, sodium is 132 with a potassium of 3.9 current creatinine is 0.56. Magnesium is 2.0. Multiple medical consultations including neurology, infectious disease, and pulmonary following. Chest x-ray today shows bilateral groundglass consolidation slightly worsened in the interval. Patient is fatigued although arousable and responding appropriately. Left-sided weakness continues. Patient continues on IV dexamethasone along with vitamin and zinc supplements continued on anti-coagulant in the form of Eliquis and Baricitinib. Patient was also maintained on sliding scale along with long acting insulin although sugars have been low and actually required one amp of dextrose for a sugar less than 50 and will discontinue long-acting and continue sliding scale as needed. 08/08/2021 Patient is seen and evaluated in follow-up currently placed on BiPAP as patient oxygen saturations continued to deteriorate and patient was more lethargic. Patient continues to be in the ICU being closely monitored. BiPAP FiO2 is 40%. Patient is continued on vitamin and zinc supplements along with baricitinib, IV dexamethasone and eliquis and will continue. Pulmonary following closely. Patient continues to be lethargic with continued poor oral intake an NG tube was placed and dietitian consulted to begin tube feeds. Recommend Accu-Cheks and use sliding scale as needed. Chest x-ray this morning shows persistent left greater than right bilateral multifocal and confluent opacification his consistent with COVID-19 and no significant change from previous. 08/09/2021 Patient is seen and evaluated this morning and having a brief episode of atrial fibrillation with RVR with a heart rate of 130's -150's and cardizem was ordered although IV lasix dose was given and oral metoprolol most recently and appears to have converted back in sinus rhythm. Patient was extremely restless and attempting to take bipap mask off. Patient was extremely anxious and expressing concern of having to have a bowel movement. Multiple medical consultations following. Medications being adjusted by cardiology and increasing metoprolol dose. Patient is maintained on eliquis and Baricitinib along with steroids and vitamin supplements. Continue tube feeds for nutritional support. 08/10/2021 Patient was seen and evaluated in follow-up this morning continues to be closely monitored in the ICU with multiple medical consultations including pulmonary wastewater treatment plant chemist, infectious disease, and neurology has been asked to reevaluate the patient as patient continues to have intermittent periods of confusion but doesn't appear to be a change from previous. Patient is extremely lethargic and maintained on BiPAP although is arousable but continues to fatigue easily and follows sleep. Repeat CT of the brain has been ordered and pending. Patient continues on gentle IV hydration along with vitamin and zinc supplements and is maintained on oral anticoagulant along with IV dexamethasone. Patient is tolerating tube feedings via NG tube and blood sugars now mildly elevated and will continue sliding scale and Accu-Cheks before meals and at bedtime. White blood count is elevated at 24.4 and hemoglobin is 12.4, sodium remains low at 131 with a potassium of 3.9 and current creatinine is 0.59. LFTs within normal limits and pro calcitonin is 0.05. Chest x-ray this morning shows continued patchy peripheral bilateral Covid pneumonia with some slight improvement on the left. 08/11/2021 Patient is seen this morning continues to be closely monitored in the ICU. Patient was bipap dependent and recently being transitioned to high flow nasal cannula and currently on 6L HF and per nursing staff continuing to wean as tolerated. Patient was able to work with physical therapy today and continues to be extremely weak. Multiple medical consultations following. Per nursing staff, patient will continue in the ICU with possible downgrade to the selective unit in the next few days. Blood sugars have been increasing and will continue sliding scale and will add long acting. 08/12/2021 Patient seen in the ICU, he is an overflow patient. O2 requirements down to 5 L nasal cannula today, he is alert but confused. Sodium level coming up to 131, he continues on Decadron, blood sugars 162 this afternoon. Chest x-ray repeated today showing bilateral groundglass opacities, no pneumothorax or pleural effusion. Continues in Nico feedings, NG tube in place. No fevers, hemodyna mically stable 08/13/2021 Patient seen on reevaluation he is transferred out of the ICU and on the medical floor. He is more alert today, following commands able to move his extremities when prompted 2. He remains nothing by mouth, speech to reevaluate if he fails he may require PEG tube placement. He is currently on 5 L nasal cannula saturating above 90%, afebrile, hemodynamically stable 08/14/2021 Patient is seen and evaluated currently on 4 S. and has recently been placed back on airvo for acute respiratory distress and in a team was called. Patient was in A. fib RVR also and given a dose of IV push Lopressor. Patient is extremely lethargic and difficult to arouse today. Plan was for speech to reevaluate the patient today to wean off tube feeds and consult has been placed for possible PEG tube with general surgery. Repeat brain CT somewhat a previous exam with no acute changes noted. Chest x-ray shows some pulmonary edema and pleural fluid that is not significantly different from previous exam and clearing of soft tissue air on the left lateral chest wall compared to old exam and patient will receive a dose of IV Lasix. IV fluids discontinued. 08/15/2021 Patient is seen in follow-up this morning recently brought back to the ICU as respiratory status deteriorated and patient is back on BiPAP with an FiO2 of 60%. Patient continues to be extremely lethargic and minimally arousable and continued on tube feeds. Patient's blood pressures have been low and maintained on IV hydration. Multiple medical consultations following including pulmonary wastewater treatment plant chemist and cardiology. Patient continued on IV dexamethasone along with oral anticoagulant and vitamin and zinc supplements and most recently started on IV Zosyn. Recommend to continue monitoring blood sugars closely as there was an episode of hypoglycemia last night and continued on sliding scale along with l lester-acting. Infectious disease also following. Chest x-ray today shows bilateral peripheral increased opacification is consistent with COVID-19 infection with no significant change from previous day. Family wishes for patient to remain full code with no intubation and will attempt again to address CODE STATUS as prognosis remains extremely guarded and poor. Patient also placed back on Cardizem drip for atrial fibrillation with RVR. 08/16/2021 Patient was seen and evaluated in follow-up this morning continues to be in the ICU being closely monitored. Patient is extremely lethargic and somewhat arousable following simple commands but falls asleep easily. Patient continues on BiPAP at 50%. Currently sinus rhythm and maintained on Lopressor 100 mg twice daily and Cardizem drip discontinued. Patient also continues on Eliquis which will be on hold as consult was placed for PEG tube placement as family would like to proceed with this. Patient is maintained on tube feedings via NG tube and surgery is planning for PEG tube in the morning. Patient also continues on IV dexamethasone along with vitamin and zinc supplements and IV Zosyn as well. Recommend continuing gentle IV hydration of normal saline at 75 ML per hour. Chest x-ray today which was personally reviewed by me shows bilateral lung infiltrates greater on the left possibly compatible with atypical pneumonia. 08/17/2021 Patient is seen in the follow-up continues to be in the ICU lethargic minimally arousable. Patient has been transitioned to high flow nasal cannula and will continue with BiPAP on standby and at night. Patient was started on 10 L and currently on 5 L high flow nasal cannula with oxygen saturation of 98%. Anticoagulant on hold currently as patient is scheduled to receive a PEG tube today for continued feedings. Patient does have an NG tube which can be discontinued once the PEG tube is approved for use by surgery. Multiple medical consultations including cardiology, pulmonary, surgery, neurology following. Patient continues on IV dexamethasone along with vitamin and zinc supplements and continues on IV Zosyn. Patient having elevated blood pressures and will discontinue IV fluids. Labs: WBC 17.5, hemoglobin 9.9, platelets 131, sodium is 135, potassium 4.0, BUN 30, creatinine is 0.55, d-dimer is 3.01, LDH is 1033, alk phos is 231 and LFTs within normal limits and CRP is trending down at 15.9 today. Review of systems: Unable to obtain as patient is lethargic and minimally a rousable fatigues extremely easily All medications have been reviewed Active Medications Acetaminophen (Acetaminophen Tab 325 Mg Tab) 650 mg PO Q4HR PRN PRN Reason: Fever and/ or Pain Last Admin: 08/14/21 20:19 Dose: 650 mg Documented by: Ascorbic Acid (Ascorbic Acid 500 Mg Tab) 500 mg PO DAILY [facility] Last Admin: 08/17/21 09:01 Dose: Not Given Documented by: Atorvastatin Calcium (Atorvastatin 40 Mg Tab) 40 mg PO HS [facility] Last Admin: 08/16/21 20:52 Dose: 40 mg Documented by: Calcium Carbonate/Glycine (Calcium Carbonate 500 Mg Chewable) 500 mg PO TID PRN PRN Reason: Heartburn Last Admin: 08/06/21 08:37 Dose: 500 mg Documented by: Cholecalciferol (Cholecalciferol 10 Mcg (400 Iu) Tablet) 10 mcg PO DAILY [facility] Last Admin: 08/17/21 09:01 Dose: Not Given Documented by: Dexamethasone Sodium Phosphate (Dexamethasone Sod Phosphate 10 Mg/Ml 1 Ml Vial) 6 mg IV DAILY [facility] Last Admin: 08/17/21 09:04 Dose: 6 mg Documented by: Hydromorphone HCl (Hydromorphone 0.5 Mg/0.5 Ml Syringe) 0.5 mg IVP Q2H PRN PRN Reason: Pain Hydromorphone HCl (Hydromorphone 1 Mg/Ml 1 Ml Syringe) 1 mg IVP Q4HR PRN PRN Reason: Pain Piperacillin Sod/Tazobactam (Sod 3.375 gm/ Sodium Chloride) 100 mls @ 25 mls/hr IVPB Q8HR [facility] Last Admin: 08/17/21 08:20 Dose: 25 mls/hr Documented by: Diltiazem HCl 125 mg/ Sodium (Chloride) 125 mls @ 5 mls/hr IV .Q24H [facility] Last Admin: 08/16/21 19:02 Dose: Not Given Documented by: Insulin Aspart (Insulin Aspart (Novolog) 100 Unit/Ml Vial) 0 unit SQ Q6HR [facility]; Protocol Last Admin: 08/17/21 11:37 Dose: Not Given Documented by: Insulin Detemir (Insulin Detemir (Levemir) 100 Unit/Ml Syr) 15 unit SQ HS [facility] Last Admin: 08/16/21 20:52 Dose: 15 unit Documented by: Metoprolol Tartrate (Metoprolol Tartrate 50 Mg Tab) 100 mg PO BID [facility] Last Admin: 08/17/21 09:04 Dose: 100 mg Documented by: Miscellaneous Information (Potassium Replacement Protocol 1 Each Misc) 1 each MISCELLANE DAILY PRN; Protocol PRN Reason: Per Protocol Miscellaneous Information (Magnesium Replacement Protocol 1 Each Misc) 1 each MISCELLANE DAILY PRN; Protocol PRN Reason: Per Protocol Pantoprazole Sodium (Pantoprazole 40 Mg/10 Ml Vial) 40 mg IVP BID [facility] Last Admin: 08/17/21 09:04 Dose: 40 mg Documented by: Sodium Chloride (Sodium Chloride 0.9% Flush 10 Ml Syringe) 10 ml IV Q4HR PRN PRN Reason: PICC Line Sodium Chloride (Sodium Chloride 0.9% Flush 10 Ml Syringe) 10 ml IV WEEKLY [facility] Last Admin: 08/16/21 09:00 Dose: 10 ml Documented by: Sodium Chloride (Sodium Chloride 0.9% Flush 10 Ml Syringe) 20 ml IV Q4HR PRN PRN Reason: PICC Line Zinc Sulfate (Zinc Sulfate 220 Mg Cap) 220 mg PO DAILY [facility] Last Admin: 08/17/21 09:01 Dose: Not Given Documented by: PHYSICAL EXAMINATION: GENERAL: The patient is alert and oriented x1, extremely lethargic. Minimally responsive. Awakes minimally and following simple commands but falls asleep easily Thin built. Continues on BiPAP at night and currently on high flow nasal cannula. Temp is 98.7, pulse is 74, resp are 17, blood pressure is 147/72, and 02 is 98% on BiPAP at 50%, placed on high flow oxygen of 10 L and patient's oxygen saturation is 94% HEENT: Pupils are round and equally reacting to light. EOMI. No scleral icterus. No conjunctival pallor. Normocephalic, atraumatic. No pharyngeal erythema. No thyromegaly. NG tube noted CARDIOVASCULAR: S1 and S2 muffled. PULMONARY: Diffuse bilateral coarse rhonchi and scattered crackles noted with diminished breath sounds at the bases ABDOMEN: Soft, nontender, nondistended, normoactive bowel sounds. No palpable organomegaly. MUSCULOSKELETAL: No joint swelling or deformity. EXTREMITIES: No cyanosis, clubbing, or pedal edema. NEUROLOGICAL: Minimally arousable, extremely lethargic alert and oriented 1 and fatigued and falls asleep easily. Diffusely weak SKIN: No rashes. 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 Continue with weaning 02 as tolerated. Patient will continue with BiPAP as needed and at night and transitioned to high flow nasal cannula currently on 7 L high flow with oxygen saturations in the 90s. Continued on eliquis although currently on hold for PEG tube placement today, IV dexamethasone, vitamin and zinc supplements. Patient has received Baricitinib. Patient remains in the ICU for close monitoring. Multiple medical consultations following. Gen. surgery following and has had PEG tube placement today and will resume eliquis tomorrow. Due to multiple complex medical issues, Prognosis is extremely guarded. Objective - Vital Signs Vital signs: Vital Signs Temp 97.8 F 08/17/21 04:00 Pulse 95 08/17/21 07:00 Resp 17 08/17/21 07:00 BP 167/70 08/17/21 07:00 Pulse Ox 97 08/17/21 07:00 Intake & Output 08/16/21 08/17/21 08/17/21 18:59 06:59 18:59 Intake Total 1922 1657 75 Output Total 866 1716 100 Balance 1056 -59 -25 Weight 63.1 kg 63.5 kg Intake: IV 825 900 75 0.9 @ 75mL/hr 825 900 75 Intake, IV Titration 300 100 Amount Piperacillin-Tazobactam 3 200 100 .375 gm In Sodium Chloride 0.9% 100 ml @ 25 mls/hr IVPB Q8HR [facility] Rx# :[id number] Potassium Chloride 20 meq 100 In Water For Injection 1 100ml.bag @ 50 mls/hr IVPB Q2H [facility] Rx#: [id number] Tube Feeding 627 627 Other 170 30 Output: Urine 865 1716 100 Stool 1 Other: Voiding Method Indwelling Catheter Indwelling Catheter - Labs CBC & Chem 7: 08/17/21 04:05 08/17/21 04:05 Labs: Abnormal Lab Results - Last 24 Hours (Table) 08/16/21 08/16/21 08/16/21 Range/Units 03:50 11:32 18:14 WBC (3.8-10.6) k/uL RBC (4.30-5.90) m/uL Hgb (13.0-17.5) gm/dL Hct (39.0-53.0) % RDW (11.5-15.5) % Neutrophils # (1.3-7.7) k/uL Sodium (137-145) mmol/L BUN (9-20) mg/dL Creatinine (0.66-1.25) mg/dL Glucose (74-99) mg/dL POC Glucose (mg/dL) 139 H 260 H (75-99) mg/dL Calcium (8.4-10.2) mg/dL Ferritin 989.0 H (22.0-322.0) ng/mL AST (17-59) U/L ALT (4-49) U/L Alkaline Phosphatase (38-126) U/L Total Protein (6.3-8.2) g/dL Albumin (3.5-5.0) g/dL 08/16/21 08/16/21 08/17/21 Range/Units 21:10 23:34 04:05 WBC 17.5 H (3.8-10.6) k/uL RBC 3.52 L (4.30-5.90) m/uL Hgb 9.9 L (13.0-17.5) gm/dL Hct 30.2 L (39.0-53.0) % RDW 15.6 H (11.5-15.5) % Neutrophils # 15.9 H (1.3-7.7) k/uL Sodium (137-145) mmol/L BUN (9-20) mg/dL Creatinine (0.66-1.25) mg/dL Glucose (74-99) mg/dL POC Glucose (mg/dL) 242 H 232 H (75-99) mg/dL Calcium (8.4-10.2) mg/dL Ferritin (22.0-322.0) ng/mL AST (17-59) U/L ALT (4-49) U/L Alkaline Phosphatase (38-126) U/L Total Protein (6.3-8.2) g/dL Albumin (3.5-5.0) g/dL 08/17/21 08/17/21 Range/Units 04:05 06:10 WBC (3.8-10.6) k/uL RBC (4.30-5.90) m/uL Hgb (13.0-17.5) gm/dL Hct (39.0-53.0) % RDW (11.5-15.5) % Neutrophils # (1.3-7.7) k/uL Sodium 131 L (137-145) mmol/L BUN 30 H (9-20) mg/dL Creatinine 0.55 L (0.66-1.25) mg/dL Glucose 222 H (74-99) mg/dL POC Glucose (mg/dL) 227 H (75-99) mg/dL Calcium 8.0 L (8.4-10.2) mg/dL Ferritin (22.0-322.0) ng/mL AST 67 H (17-59) U/L ALT 51 H (4-49) U/L Alkaline Phosphatase 257 H (38-126) U/L Total Protein 4.9 L (6.3-8.2) g/dL Albumin 2.3 L (3.5-5.0) g/dL
[2021-08-17] MEDS: DILTIAZEM 125 MG in SODIUM CHLORIDE 0.9% 100 ML IV SCH (15:35)
[2021-08-17 15:49] LABS: Glucose,Whole Blood 116 mg/dL (75-99)
[2021-08-17 17:44] LABS: Glucose,Whole Blood 79 mg/dL (75-99)
[2021-08-17] MEDS: ATORVASTATIN 40 MG TAB PO SCH (20:38)
[2021-08-17 20:48] LABS: Glucose,Whole Blood 59 mg/dL (75-99)
[2021-08-17 21:03] LABS: Glucose,Whole Blood 110 mg/dL (75-99)
[2021-08-17] MEDS: INSULIN DETEMIR (LEVEMIR) 100 UNIT/ML SYR SQ SCH (21:15)
[2021-08-17 22:24] LABS: Glucose,Whole Blood 95 mg/dL (75-99)
[2021-08-18 00:27] LABS: Glucose,Whole Blood 66 mg/dL (75-99)
[2021-08-18 00:59] LABS: Glucose,Whole Blood 162 mg/dL (75-99)
[2021-08-18] MEDS: INSULIN ASPART (NovoLOG) 100 UNIT/ML VIAL SQ SCH ×6 (02:22→18:37)
[2021-08-18 03:54] LABS: Glucose,Whole Blood 105 mg/dL (75-99)
[2021-08-18 03:54] LABS: Glucose,Whole Blood 590 mg/dL (75-99)
[2021-08-18 04:54] LABS: Basophils % (A) 0 %; Eosinophils # (A) 0.4 k/uL (0-0.7); Eosinophils % (A) 3 %; HCT 31.9 % (39.0-53.0); HGB 10.4 gm/dL (13.0-17.5); Lymphocytes # (A) 0.9 k/uL (1.0-4.8); Lymphocytes % (A) 6 %; MCH 28.5 pg (25.0-35.0); MCHC 32.7 g/dL (31.0-37.0); Mean Platelet Volume 8.7; Monocytes # (A) 0.4 k/uL (0-1.0); Monocytes % (A) 3 %; Neutrophils # (A) 12.5 k/uL (1.3-7.7); Neutrophils % (A) 87 %; Platelet Count 139 k/uL (150-450); RBC 3.66 m/uL (4.30-5.90); WBC 14.4 k/uL (3.8-10.6)
[2021-08-18 05:11] LABS: ALT 49 U/L (4-49); AST 72 U/L (17-59); African American GFR (CKD) >90 (>60 ml/min/1.73 sqM); Albumin 2.2 g/dL (3.5-5.0); Alkaline Phosphatase 170 U/L (38-126); Anion Gap 4 mmol/L; Blood Urea Nitrogen 21 mg/dL (9-20); Calcium 7.4 mg/dL (8.4-10.2); Carbon Dioxide 28 mmol/L (22-30); Chloride 91 mmol/L (98-107); Glucose 348 mg/dL (74-99); Non-African American GFR(CKD) >90 (>60 ml/min/1.73 sqM); Potassium 3.4 mmol/L (3.5-5.1); Sodium 123 mmol/L (137-145); Total Bilirubin 0.9 mg/dL (0.2-1.3)
[2021-08-18 06:20] LABS: Glucose,Whole Blood 99 mg/dL (75-99)
[2021-08-18] MEDS ORDERED: POTASSIUM BICARBONATE/CIT AC 20 MEQ TABLET.EFF NG-TUBE SCH (07:00)
--- NOTE | 2021-08-18 07:54 | P.PN ---
Subjective Progress Note Date: 08/18/21 Principal diagnosis: COVID 19 On 08/13/2021 patient seen in follow-up on medical surgical floor. He is lethargic on today's exam, but does arouse to voice, he answers simple ques tions, he follows simple command, appears very weak, but breathing comfortably, he is currently on 5 L of oxygen with pulse ox of 92-97%, his been afebrile, doesn't appear to be in any acute distress, however his head is laying down on his shoulder, does not seem to be able to hold up his head erect. He knew the place and is oriented to person, but he thinks the president is Shlomo, and after a couple of hints he did say that the president is Etienne. His NG tube remains in place, and he has tube feedings infusing, he has been tolerating tube feedings well, she remains on Decadron 6 mg daily, he is on Eliquis 5 mg twice daily, he continues on IV fluids with 0.9 at 75. His chest x-ray from yesterday shows bilateral groundglass opacities within the lungs, NG tube is in appropriate position, no evident pneumothorax or pleural effusion, and there is a left-sided PICC line in place. Today's labs have been reviewed, his white blood cell count is improving and is down to 18.6, hemoglobin is 11.6, his sodium is improving and is up to 133, the rest of electrolytes were within normal limits, BUN is 21 creatinine 0.62, his ALT is up slightly at 53, AST was 51, alkaline phosphatase is relatively stable at 191 up slightly from 182, and his last pro-calcitonin that was done on 08/10/2021 was negative at 0.05. Patient has had no fever or chills. Patient has been nothing by mouth in view of his hypoxia, BiPAP dependence, recent stroke this admission, and overall generalized weakness and high aspiration risk. We'll obtain speech evaluation On 08/14/2021 patient seen in follow-up on medical surgical floor, he is more lethargic on today's exam, he requires repeated for most stipulation, and tactile stimulation to open his eyes, does not appear to be in any acute distress, rapid response team was called last night, for worsening hypoxia, tachypnea, and his heart rate was in the 130s, A. fib with RVR, his blood pressure was elevated at greater than 190 systolic. Patient was noted to have oxygen saturations in the low 80s on the 100% non-rebreather. He did have a temp of 101.5F, chest x-ray was repeated showing pulmonary edema and pleural fluid is not significantly different from his last exam. Patient was placed on Airvo on which she remains, initially at 60 L an FiO2 of 93%, his pulse ox did improve. Subsequently his FiO2 was dropped down to 80%, his pulse ox is still 96-99%. Today's labs show increased white blood cell, which is currently at 33.2, hemoglobin of 12.7, d-dimer is 14.04, sodium is 131, potassium is 4.0, chloride is 95, BUN is 25 creatinine 0.61. Remains on Decadron 6 mg daily, she was given a dose of IV push Lopressor, he continues on Lopressor 100 mg by mouth twice daily. His mentation remains lethargic, and patient is an increased risk for aspiration. He was supposed to be seen by speech therapy today and have a swallow evaluation to evaluate for potential ability to eat by mouth. It was suspected that he will need a PEG tube. He still has the NG tube in his nose, and receiving tube feedings with vital AF at rate of 57. On 08/15/2021 patient seen in follow-up in intensive care unit where she was transferred last night. Patient continued to desaturate on the floor, and required to be placed on BiPAP support, currently with pressures of 16 and 10 and FiO2 of 90%. Remains extremely lethargic. Afebrile, and not requiring any vasopressor support, he is on 0.9 normal significantly to 20 ML per hour, he has not been able to complete swallow evaluation related to his extremely poor mental status, which seems to be worsening. Repeat brain CT yesterday showed a cerebral bilaterally, no acute intracranial abnormality, and old right thalamic lacunar infarct. No change from previous CT of the brain. Yesterday we empirically started the patient on Zosyn for possibility of aspiration related pneumonitis. This white blood cell count is slightly improved today, however still elevated at 29.8, hemoglobin is 10.4, d-dimer is down to 3.8, sodium is 134, potassium 3.7, chloride is 100, B1 is 35, creatinine 0.71, LDH is down to 1462, improving, CRP is up to 19.9. Patient continues on Eliquis, currently remains in sinus mechanism with a controlled rate, yesterday during episode of worsening dyspnea and hypoxia, he was requiring Cardizem infusion for rate control, Cardizem drip is currently discontinued. Addition patient continues on dexamethasone 6 mg daily, COVID vitamins. Today's chest x-ray shows bilateral peripheral increased opacities consistent with COVID-19 infection. No significant change from one day earlier, patient's spouse was updated on his condition, and the decision was made not to proceed with intubation and placement on mechanical ventilator should his condition continued to deteriorate. On 08/17/2021 patient seen in follow-up in the intensive care unit. he still very lethargic, he barely opens his eyes to repeated verbal and tactile stimulation, he is currently on BiPAP support with pressures of 16/10, and FiO2 of 40%, his pulse ox is 94%. NG tube remains in place for tube feedings that are currently on hold, general surgery has been consulted for placement of PEG tube which is scheduled for today. Patient is on 0.9 normal sinus rate is 75 ML per hour, he remains on Zosyn for possibility of aspiration pneumonia. he remains on Decadron 6 mg once daily, he is on COVID vitamins. He is not requiring any vasopressor support. Level of consciousness and his mental status have remained abnormal, patient has been quite somnolent, she suspected to have abnormal swallowing, and aspiration pneumonia. Been afebrile, blood pressure is elevated with the systolic in the 160s to 170s, and diastolic in the 70s and 80s. He is currently in A. fib with RVR with a rate of 157. Patient has not had his morning medications yet, he is due for his Lopressor dose 100 mg per the PEG tube. Anticoagulation is on hold right now for PEG tube placement. Generally patient appears to be very swollen. Patient's weight is up by 0.4 kg in last 24 hours, and overall patient is at least 11 kg positive since admission. Urine output is in the order of 100-200 mL an hour. Patient does not appear to be in any acute distress, however he needs positive pressure ventilation intermittently and at bedtime. he could be placed on high flow nasal cannula intermittently. On today's evaluation on 08/18/2021 patient is seen in follow-up in the intensive care unit, he still quite lethargic, he is able to open his eyes repeated verbal stimulation. Very weak, he is on BiPAP support with pressures of 16/10 and FiO2 of 40%, with a pulse ox of 91%, yesterday he tolerated high flow nasal cannula, and by the end of the evening he was down to 4 L, and for the nighttime she was placed back on positive pressure ventilation via BiPAP. Patient had a PEG tube placed yesterday, at around 1:00, tube feedings have been on hold since yesterday, we anticipate starting tube feedings this morning. Overnight patient had episodes of hypoglycemia. And he received D5W at a rate of 50 ML per hour. In addition yesterday she received a dose of IV Lasix and he is -2.5 L net fluid balance over the last 24 hours. However his sodium is down to 123 from previously at 131 on yesterday's labs. Serum potassium is 3.4, chloride is 91, BUN is 21 creatinine 0.59, this morning's blood sugar recheck revealed a blood sugar of 348, capillary blood glucose was 100. Tube feedings remain on hold for now. White blood cell count is trending down and is down to 14.4, hemoglobin is 10.4, last pro calcitonin level from 08/14/2021 was 0.26. Patient is currently on Zosyn for empiric antibiotic coverage. Today's chest x- ray is pending. Patient is in sinus mechanism with a rate of 82, blood pressure is 131/60, he was just switched over to high flow nasal cannula at 15 L and his pulse ox is actually improved and is up to 99-100%. Left consciousness remains very lethargic, patient is trying to follow simple command, he is able to squeeze with his right hand, unable to squeeze with his left hand. Generally he is very weak. His cough is weak. Lung sounds reveal diffuse rhonchi throughout the lung camargo. Objective - Vital Signs Vital signs: Vital Signs Temp 98.1 F 08/18/21 04:00 Pulse 72 08/18/21 07:00 Resp 18 08/18/21 07:00 BP 133/67 08/18/21 07:00 Pulse Ox 95 08/18/21 07:00 Intake & Output 08/17/21 08/18/21 08/18/21 18:59 06:59 18:59 Intake Total 430 510 50 Output Total 2471 1010 45 Balance -2040 -500 5 Intake: IV 280 510 50 0.9 @ 10cc/hr 220 Dextrose 5% in Water 1, 60 510 50 000 ml @ 20 mls/hr IV . Q24H ONE Rx#:[id number] Intake, IV Titration 100 Amount Piperacillin-Tazobactam 3 100 .375 gm In Sodium Chloride 0.9% 100 ml @ 25 mls/hr IVPB Q8HR [facility] Rx# :[id number] Other 50 Output: Urine 2470 1010 45 Stool 1 Other: Voiding Method Indwelling Catheter Indwelling Catheter - Exam GENERAL EXAM:lethargic, 75-year-old patient is currently on BiPAP support with pressures of 16/10 and FiO2 of 40%, patient is extremely lethargic. HEAD: Normocephalic/atraumatic. EYES: Normal reaction of pupils, equal size. Conjunctiva pink, sclera white. NOSE: Clear with pink turbinates. NG tube has been removed THROAT: No erythema or exudates. NECK: No masses, no JVD, no thyroid enlargement, no adenopathy. CHEST: No chest wall deformity. Symmetrical expansion. LUNGS: Equal air entry with no crackles, wheeze, rhonchi or dullness. CVS: Regular rate and rhythm, normal S1 and S2, no gallops, no murmurs, no rubs ABDOMEN: Soft, nontender. No hepatosplenomegaly, normal bowel sounds, no guarding or rigidity. PEG tube is in place, tube feedings have not been started yet. EXTREMITIES: No clubbing, generalized edema, no cyanosis, 2+ pulses and upper and lower extremities. MUSCULOSKELETAL: Muscle strength and tone weak SPINE: No scoliosis or deformity SKIN: No rashes CENTRAL NERVOUS SYSTEM: Lethargic. Left sided weakness with weaker left subassemblies wirer - Labs CBC & Chem 7: 08/18/21 04:38 08/18/21 04:38 Labs: Abnormal Lab Results - Last 24 Hours (Table) 08/17/21 08/17/21 08/17/21 Range/Units 11:30 11:32 11:48 WBC (3.8-10.6) k/uL RBC (4.30-5.90) m/uL Hgb (13.0-17.5) gm/dL Hct (39.0-53.0) % Plt Count (150-450) k/uL Neutrophils # (1.3-7.7) k/uL Lymphocytes # (1.0-4.8) k/uL Sodium (137-145) mmol/L Potassium (3.5-5.1) mmol/L Chloride (98-107) mmol/L BUN (9-20) mg/dL Creatinine (0.66-1.25) mg/dL Glucose (74-99) mg/dL POC Glucose (mg/dL) 58 L 60 L 154 H (75-99) mg/dL Calcium (8.4-10.2) mg/dL AST (17-59) U/L Alkaline Phosphatase (38-126) U/L Total Protein (6.3-8.2) g/dL Albumin (3.5-5.0) g/dL 08/17/21 08/17/21 08/17/21 Range/Units 15:21 15:45 20:47 WBC (3.8-10.6) k/uL RBC (4.30-5.90) m/uL Hgb (13.0-17.5) gm/dL Hct (39.0-53.0) % Plt Count (150-450) k/uL Neutrophils # (1.3-7.7) k/uL Lymphocytes # (1.0-4.8) k/uL Sodium (137-145) mmol/L Potassium (3.5-5.1) mmol/L Chloride (98-107) mmol/L BUN (9-20) mg/dL Creatinine (0.66-1.25) mg/dL Glucose (74-99) mg/dL POC Glucose (mg/dL) 65 L 116 H 59 L (75-99) mg/dL Calcium (8.4-10.2) mg/dL AST (17-59) U/L Alkaline Phosphatase (38-126) U/L Total Protein (6.3-8.2) g/dL Albumin (3.5-5.0) g/dL 08/17/21 08/18/21 08/18/21 Range/Units 21:01 00:24 00:57 WBC (3.8-10.6) k/uL RBC (4.30-5.90) m/uL Hgb (13.0-17.5) gm/dL Hct (39.0-53.0) % Plt Count (150-450) k/uL Neutrophils # (1.3-7.7) k/uL Lymphocytes # (1.0-4.8) k/uL Sodium (137-145) mmol/L Potassium (3.5-5.1) mmol/L Chloride (98-107) mmol/L BUN (9-20) mg/dL Creatinine (0.66-1.25) mg/dL Glucose (74-99) mg/dL POC Glucose (mg/dL) 110 H 66 L 162 H (75-99) mg/dL Calcium (8.4-10.2) mg/dL AST (17-59) U/L Alkaline Phosphatase (38-126) U/L Total Protein (6.3-8.2) g/dL Albumin (3.5-5.0) g/dL 08/18/21 08/18/21 08/18/21 Range/Units 03:48 03:51 04:38 WBC (3.8-10.6) k/uL RBC (4.30-5.90) m/uL Hgb (13.0-17.5) gm/dL Hct (39.0-53.0) % Plt Count (150-450) k/uL Neutrophils # (1.3-7.7) k/uL Lymphocytes # (1.0-4.8) k/uL Sodium 123 L (137-145) mmol/L Potassium 3.4 L (3.5-5.1) mmol/L Chloride 91 L (98-107) mmol/L BUN 21 H (9-20) mg/dL Creatinine 0.59 L (0.66-1.25) mg/dL Glucose 348 H (74-99) mg/dL POC Glucose (mg/dL) 590 H 105 H (75-99) mg/dL Calcium 7.4 L (8.4-10.2) mg/dL AST 72 H (17-59) U/L Alkaline Phosphatase 170 H (38-126) U/L Total Protein 5.0 L (6.3-8.2) g/dL Albumin 2.2 L (3.5-5.0) g/dL 08/18/21 Range/Units 04:38 WBC 14.4 H (3.8-10.6) k/uL RBC 3.66 L (4.30-5.90) m/uL Hgb 10.4 L (13.0-17.5) gm/dL Hct 31.9 L (39.0-53.0) % Plt Count 139 L (150-450) k/uL Neutrophils # 12.5 H (1.3-7.7) k/uL Lymphocytes # 0.9 L (1.0-4.8) k/uL Sodium (137-145) mmol/L Potassium (3.5-5.1) mmol/L Chloride (98-107) mmol/L BUN (9-20) mg/dL Creatinine (0.66-1.25) mg/dL Glucose (74-99) mg/dL POC Glucose (mg/dL) (75-99) mg/dL Calcium (8.4-10.2) mg/dL AST (17-59) U/L Alkaline Phosphatase (38-126) U/L Total Protein (6.3-8.2) g/dL Albumin (3.5-5.0) g/dL Assessment and Plan Plan: #1. Acute hypoxic respiratory failure secondary to COVID-19 pneumonia, and aspiration pneumonia patient was on BiPAP support. On 08/14/2021 patient had to be transferred back to the intensive care unit for worsening hypoxia and placed on BiPAP support with pressures of 16 and 10 and FiO2 of 100% #2. 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 #4. Left-sided weakness related to recent history of embolic CVA during this admission #5. Chronic atrial fibrillation, currently in sinus mechanism, patient has been on Eliquis #6. Elevated inflammatory markers secondary to COVID-19 pneumonia, and they are currently improving #7. Type 2 diabetes mellitus #8. Dyslipidemia #9. Worsening leukocytosis with negative procalcitonin level, we'll repeat a pro-calcitonin level #10. Overall general medical debility from COVID-19 pneumonia, and prolonged hospitalization #11. Episodes of hypoglycemia, Levemir has been discontinued, D5W was started #12. Hyponatremia, to diuresis, and D5W infusion. Sodium 123 this morning on 08/18/2021. D5W will be discontinued Plan: Patient can be placed back on high flow nasal cannula, he may require BiPAP support intermittently and at bedtime Level of consciousness remains impaired, patient is still quite lethargic but he is able to open his eyes to voice, and follow simple commands, he has severe generalized weakness Overnight his diabetes, he is in negative net fluid balance Repeat chest x-rays pending Discontinue D5 W, we'll see if the tube feedings can be restarted this morning, will need clearance from surgery Continue close blood glucose monitoring Maintain aspiration precautions Repeat BMP at noontime We'll restart his anticoagulation this evening if cleared by surgery Overall prognosis is quite guarded I performed a history & physical examination of the patient and discussed their management with my nurse practitioner, Emily Tovar. I reviewed the nurse practitioner's note and agree with the documented findings and plan of care. Lung sounds are positive for diminished breath sounds throughout the lung camargo. The findings and the impression was discussed with the patient. I attest to the documentation by the nurse practitioner. Time with Patient: Greater than 30
--- NOTE | 2021-08-18 08:14 | XR ---
EXAMINATION TYPE: XR chest 1V portable DATE OF EXAM: 08/18/2021 CLINICAL HISTORY: Difficulty breathing progress study. COVID. TECHNIQUE: Single AP portable upright view of the chest is obtained. COMPARISON: Chest x-ray from one day earlier and older studies FINDINGS: Interval removal of orogastric tube. Stable left-sided PICC line.. There is new PEG tube e pigastric region noted. Cardiac silhouette size is stable and within normal limits with atherosclerotic change aortic knob. D iffuse reticular increased opacities bilaterally remain present greatest in the periphery and slightl y more prominent in the left lung versus right lung. IMPRESSION: Bilateral multifocal increased opacities consistent with covid-19 infection are redemonst rated. No significant change from one day earlier.
[2021-08-18] MEDS: PANTOPRAZOLE 40 MG/10 ML VIAL IVP SCH ×2 (08:57→20:42)
[2021-08-18] MEDS: ZINC SULFATE 220 MG CAP PO SCH (08:58)
[2021-08-18] MEDS: ASCORBIC ACID 500 MG TAB PO SCH (08:58)
[2021-08-18] MEDS: PIPERACILLIN-TAZOBACTAM 3.375 GM in SODIUM CHLORIDE 0.9% 100 ML IVPB SCH ×2 (08:58→15:49)
[2021-08-18] MEDS: METOPROLOL TARTRATE 50 MG TAB PO SCH ×2 (08:58→20:42)
[2021-08-18] MEDS: DEXAMETHASONE SOD PHOSPHATE 10 MG/ML 1 ML VIAL IV SCH (08:59)
[2021-08-18] MEDS: POTASSIUM CHLORIDE 10 MEQ in WATER FOR INJECTION 1 100ML.BAG IVPB SCH ×3 (08:59→13:22)
[2021-08-18] MEDS: CHOLECALCIFEROL 10 MCG (400 IU) TABLET PO SCH (09:06)
[2021-08-18 09:39] LABS: Glucose,Whole Blood 88 mg/dL (75-99)
--- NOTE | 2021-08-18 10:24 | CONS ---
CONSULTATION Rick is a 75-year-old gentleman who is admitted to the hospital with Covid infection with pneumonia. Cardiology was consulted because of atrial fibrillation. Still remains on vent, intubated, has had brief episodes of atrial fibrillation, remains on beta iván and Eliquis will be resumed today. ROMIE / DAYANAN: [id number] /
[2021-08-18 13:12] LABS: African American GFR (CKD) >90 (>60 ml/min/1.73 sqM); Anion Gap 4 mmol/L; Blood Urea Nitrogen 26 mg/dL (9-20); Calcium 7.7 mg/dL (8.4-10.2); Carbon Dioxide 28 mmol/L (22-30); Chloride 98 mmol/L (98-107); Glucose 240 mg/dL (74-99); Non-African American GFR(CKD) >90 (>60 ml/min/1.73 sqM); Potassium 4.5 mmol/L (3.5-5.1); Sodium 130 mmol/L (137-145)
[2021-08-18 13:15] VITALS: BMI 23.3
[2021-08-18] MEDS: DILTIAZEM 125 MG in SODIUM CHLORIDE 0.9% 100 ML IV SCH (13:23)
[2021-08-18 14:30] LABS: Glucose,Whole Blood 300 mg/dL (75-99)
[2021-08-18 15:03] LABS: Glucose,Whole Blood 301 mg/dL (75-99)
--- NOTE | 2021-08-18 15:41 | EEG ---
ELECTROENCEPHALOGRAM REPORT DATE OF SERVICE: 08/18/2021. CLINICAL HISTORY: This is a 75-year-old gentleman with worsening of his confusion. The video EEG is obtained to evaluate for seizure epileptiform activity. RELEVANT MEDICATION: The patient is not on any antiepileptic drugs. EEG TYPE: A routine 21-channel EEG is performed with video using the 10/20 electrode placement system. DESCRIPTION: Awake state is obtained. During the awake state, the background consists of diffuse, low to moderate voltage of 1.5 to 2 hertz nonrhythmic delta activity and at times intermixed with theta activity. Also rarely to occasionally the background consists of theta activity. There is no physiological sleep architecture seen. There is significant myogenic artifact over the right hemisphere as well as over the left temporal region. No focality is note over the left hemisphere. It was hard to appreciate any focality over the right hemisphere since there is significant slowing. Interictal and ictal is none. ACTIVATION PROCEDURE: Photic stimulation and hyperventilation are not performed. INTERPRETATION: This is an abnormal routine EEG. The background slowing is suggestive of moderate to severe encephalopathy. There are no epileptiform discharges or seizure on the EEG. The current EEG seems unchanged compared to previous EEG on 08/02/2021. Clinical correlation is recommended. ROMIE / NEFTALY: [id number] / ELENA
--- NOTE | 2021-08-18 15:54 | CT ---
"EXAMINATION TYPE: CT brain wo con DATE OF EXAM: 08/18/2021 HISTORY: ams CT DLP: 1188.4 mGycm. Automated Exposure Control for Dose Reduction was Utilized. TECHNIQUE: CT scan of the head is performed without contrast. COMPARISON: CT brain 4 days ago and older studies. FINDINGS: There is no acute intracranial hemorrhage or midline shift identified. There is mild to m oderate diffuse ventricular and sulcal prominence consistent with diffuse age-related cerebral atroph y redemonstrated. There is mild low-attenuation in the periventricular white matter consistent with chronic small vessel ischemic change redemonstrated. In the interval from most recent studies there i s new fairly large area of chambers-white matter blurring right frontal parietal level MCA distribution m easuring roughly 6 x 4 cm axial image 39 x 4.5 cm craniocaudal dimension coronal image 42 consistent with evolving acute/subacute infarct. Incidental tiny mucous retention cyst or polyp in the inferior right maxillary sinus. Globes are intact. IMPRESSION: There is moderate to large size involving 6 x 4 cm right frontoparietal acute infarct in the MCA distribution now identified. A [place] level critical message alert has been initiated for Bharati Del Valle MD via the [employer] | Critical Results System on 08/18/2021 3:52 PM. This message alert has been sent to Bharati Link ra, MD via the preferences provided by the clinician for the receipt of Radiology Critical Findings. Message ID [id number]."
--- NOTE | 2021-08-18 16:12 | P.PN ---
Subjective Progress Note Date: 08/18/21 Neurology team was notified to reevaluate the patient for his worsening of altered mental status. The patient nurse she stated that she had them about a week ago and she stated that the she feels the patient is more confused. Patient was seen last by our team on 08/10/[address] Tony. Please refer to o ur notes for further details. Since last seen, Patient was transferred to the floors on 08/14/2021, he was hypoxic and tachypneic with A-fib with RVR. He blood pressure was elevated at that time. Most recent CT of the head is on 08/14/2021 it's reported as cerebral atrophy. No acute intracranial abnormality. Old right thalamic lacunar infarct. No change. His ABG that day was PO2 of 53. last his sugars is been labile from the range of 59 to 500s. He had a sugar level of 59 on 08/17/2021 at 204 and then on 08/18/2021 sugar was 590. His most current vital signs is a a blood pressure of 130/62, heart rate of the 76, temperature of 98.8 Fahrenheit axillary, heart rate of 20, pulse ox of 99 at room air. His last white blood cells 14.4 His sodium is 130 currently the prior one was reported as 123. Calcium and was 7.7 He had a PEG tube on 08/17/2021. Spoke with the patient's in person and she stated that patient was doing well on 08/12/2021 then she stated that the next day as she felt like he declined. Per ICU teams note, on 08/13/2021 document of the patient had left-sided wea kness which is new compared to Dr. Tony's last exam on 08/10/2021. Objective - Vital Signs Vital signs: Vital Signs Temp 98.8 F 08/18/21 12:00 Pulse 72 08/18/21 13:00 Resp 21 08/18/21 13:00 BP 131/61 08/18/21 13:00 Pulse Ox 100 08/18/21 13:00 Intake & Output 08/17/21 08/18/21 08/18/21 18:59 06:59 18:59 Intake Total 430 510 668 Output Total 2471 1010 295 Balance -2040 -500 373 Weight 63.5 kg Intake: IV 280 510 50 0.9 @ 10cc/hr 220 Dextrose 5% in Water 1, 60 510 50 000 ml @ 20 mls/hr IV . Q24H ONE Rx#:[id number] Intake, IV Titration 100 300 Amount Piperacillin-Tazobactam 3 100 100 .375 gm In Sodium Chloride 0.9% 100 ml @ 25 mls/hr IVPB Q8HR [facility] Rx# :[id number] Potassium Chloride 10 meq 200 In Water For Injection 1 100ml.bag @ 100 mls/hr IVPB Q1HR [facility] Rx#: [id number] Tube Feeding 228 Other 50 90 Output: Urine 2470 1010 295 Stool 1 Other: Voiding Method Indwelling Catheter Indwelling Catheter Indwelling Catheter # Bowel Movements 1 - Exam GENERAL: The patient is lying in bed and is not in acute distress. NEUROLOGICAL: Higher mental function: The patient is drowsy and is briefly awakeable to voice. He is not verbally responsive or following commands. Cranial nerves: The pupils are round, right is 3mm and left is 2mm and reactive to light. He has right gaze preference and then would look to center. Could not assess visual disturbance or EOM because of his condition. He had left nasolabial flattening. Could not assess rest of cranial nerves because of his condition. Motor: Gait is deferred. The strength is he is he is withdrawing and lifting r ight side above gravity and not left. He had slight trace movement over left lower extremity . Cerebellum: Could not assess. Sensation: Could not assess light touch but he has is withdrawing to painful stimuli on right side and grimaces on left. Reflexes (right/left): 1+ throughout. Plantars are mute over the right and upgoing on the left. WORK-UP: * CT of the head performed on 07/24/2021 is reported as abnormal area of attenuation within the right cerebellum may reflect vascular insult however underlying lesion or necrotic. Correlate with MRI. * Carotid duplex is reported as there is antegrade flow in the vertebral arteries. Images and measurements suggest 35% stenosis in both internal carotid arteries. * MRI of the brain report is reported as diffuse scattered area of restricted diffusion, correlate for embolic phenomena. In the body they reported it is reported that the patient has diffusion weighted image demonstrated restricted effusion and inferior cerebellar hemispheres bilaterally, scattered area of restricted diffusion in the cerebellum, occipital lobes are noted bilaterally as well as bilateral parietal. Encephalomalacia was noted in the region of the thalamus over the right likely due to chronic vascular insult. Scattered area of hyperdensity present in that. Colossal, periventricular and subcortical white matter on inversion recovery T2-weighted images are currently related to chronic small vessel ischemic changes also noted. I personally reviewed that MRI the brain and I do agree patient has bilateral hemispheric stroke over the cerebellar occipital region parietal, frontal is seems embolic in nature. * CT angiography of the head and neck was reported as atheromatous plaquing present bilaterally slightly greater on the left. No flow limiting stenosis bilateral carotid bifurcation. Finding are stable from 12/04/2019 at. Normal afognak of [place]. * CT of the head was ordered as a result because of his altered mental status since reported as in keeping with a finding at recent MRI there are multiple focal area of decreased attenuation involving both cerebellar hemisphere and to a lesser extent the supratentorial region. Findings are compatible embolic ischemic insults. * CT head on 08/05/2021: yesterday because he had to what appeared right upper extremity weakness and was negative for bleed. It is reported as cerebral atrophy. No acute intracranial abnormality. No change. 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 I personally reviewed the CT of the head and I felt the patient had the subacute to chronic over bilateral cerebellar right more than left, he had chronic-appearing right thalamus, subacute to chronic bilateral subcortical frontal right more than left. There is no hemorrhage. There is no acute ischemia seen. * Most recent CT of the head is on 08/14/2021 it's reported as cerebral atrophy. No acute intracranial abnormality. Old right thalamic lacunar infarct. No change. * 2-D echo was reported as left ventricle size is normal. Moderate consider Limbitrol hypertrophy. Ejection fraction of 55-60%. Left ventricle filling pressure cannot be at estimated due to 8 atrial fibrillation. * Routine EEG on 08/02/2021 is abnormal. The back or slowing suggestive of moderate to severe encephalopathy. There are no focal slowing, epileptiform discharges or seizure in the EEG. Clinical correlation is recommended. * Lipid panel is triglyceride of 104, cholesterol of 96, LDL 28 and HDL of 46. * AST of 115 and ALT of 77 * TSH is 0.112 and the free T4 is 4.06 * Hemoglobin A1c is 9.2 * Vitamin B12 is 2006 177 which is above normal but it's unremarkable. * Serum folate level is 5.70 and the normal supposed to be between 4.4-31 - Labs CBC & Chem 7: 08/18/21 04:38 08/18/21 12:50 Labs: Abnormal Lab Results - Last 24 Hours (Table) 08/17/21 08/17/21 08/17/21 Range/Units 15:21 15:45 20:47 WBC (3.8-10.6) k/uL RBC (4.30-5.90) m/uL Hgb (13.0-17.5) gm/dL Hct (39.0-53.0) % Plt Count (150-450) k/uL Neutrophils # (1.3-7.7) k/uL Lymphocytes # (1.0-4.8) k/uL Sodium (137-145) mmol/L Potassium (3.5-5.1) mmol/L Chloride (98-107) mmol/L BUN (9-20) mg/dL Creatinine (0.66-1.25) mg/dL Glucose (74-99) mg/dL POC Glucose (mg/dL) 65 L 116 H 59 L (75-99) mg/dL Calcium (8.4-10.2) mg/dL AST (17-59) U/L Alkaline Phosphatase (38-126) U/L Total Protein (6.3-8.2) g/dL Albumin (3.5-5.0) g/dL 08/17/21 08/18/21 08/18/21 Range/Units 21:01 00:24 00:57 WBC (3.8-10.6) k/uL RBC (4.30-5.90) m/uL Hgb (13.0-17.5) gm/dL Hct (39.0-53.0) % Plt Count (150-450) k/uL Neutrophils # (1.3-7.7) k/uL Lymphocytes # (1.0-4.8) k/uL Sodium (137-145) mmol/L Potassium (3.5-5.1) mmol/L Chloride (98-107) mmol/L BUN (9-20) mg/dL Creatinine (0.66-1.25) mg/dL Glucose (74-99) mg/dL POC Glucose (mg/dL) 110 H 66 L 162 H (75-99) mg/dL Calcium (8.4-10.2) mg/dL AST (17-59) U/L Alkaline Phosphatase (38-126) U/L Total Protein (6.3-8.2) g/dL Albumin (3.5-5.0) g/dL 08/18/21 08/18/21 08/18/21 Range/Units 03:48 03:51 04:38 WBC (3.8-10.6) k/uL RBC (4.30-5.90) m/uL Hgb (13.0-17.5) gm/dL Hct (39.0-53.0) % Plt Count (150-450) k/uL Neutrophils # (1.3-7.7) k/uL Lymphocytes # (1.0-4.8) k/uL Sodium 123 L (137-145) mmol/L Potassium 3.4 L (3.5-5.1) mmol/L Chloride 91 L (98-107) mmol/L BUN 21 H (9-20) mg/dL Creatinine 0.59 L (0.66-1.25) mg/dL Glucose 348 H (74-99) mg/dL POC Glucose (mg/dL) 590 H 105 H (75-99) mg/dL Calcium 7.4 L (8.4-10.2) mg/dL AST 72 H (17-59) U/L Alkaline Phosphatase 170 H (38-126) U/L Total Protein 5.0 L (6.3-8.2) g/dL Albumin 2.2 L (3.5-5.0) g/dL 08/18/21 08/18/21 08/18/21 Range/Units 04:38 12:50 14:29 WBC 14.4 H (3.8-10.6) k/uL RBC 3.66 L (4.30-5.90) m/uL Hgb 10.4 L (13.0-17.5) gm/dL Hct 31.9 L (39.0-53.0) % Plt Count 139 L (150-450) k/uL Neutrophils # 12.5 H (1.3-7.7) k/uL Lymphocytes # 0.9 L (1.0-4.8) k/uL Sodium 130 L (137-145) mmol/L Potassium (3.5-5.1) mmol/L Chloride (98-107) mmol/L BUN 26 H (9-20) mg/dL Creatinine 0.63 L (0.66-1.25) mg/dL Glucose 240 H (74-99) mg/dL POC Glucose (mg/dL) 300 H (75-99) mg/dL Calcium 7.7 L (8.4-10.2) mg/dL AST (17-59) U/L Alkaline Phosphatase (38-126) U/L Total Protein (6.3-8.2) g/dL Albumin (3.5-5.0) g/dL Assessment and Plan Assessment: * Left sided weakness with right gaze preference (which is new compared to previous exam by our team on 08/10/2021 but is documented on ICU on 08/13): Rule out new stroke. * Worsening of altered mental status due to multifactorial: Predomaintely metabolic encephalopathy (sugar ranging 50's to 500's), electrolyte abnormality (hyponatremia) and component of hypoxic encephalopathy from COVID- 19 pneumonia. Rule out new stroke. * Bilateral hemisphere stroke during this admission (seen on 08/01/2021). 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 * On Eliquis 5 mg 1 tablet twice since has history of atrial fibrillation. Will hold ASA for now. Continue Lipitor 40 mg daily. * PT, OT and SENIOR PAINTER are consulted * Continue cardiac monitoring * Continue neuro checks * Cardiology is on board. * Please avoid any hypoglycemia and recommend euglycemia. We'll defer the management to the primary as well as the ICU team. * Defer the electrolyte imbalance to the primary as well as ICU team. * We'll defer the rest of the medical management to the primary as well as a ICU team. * Recommend consideration of rehab and if possible inpatient. * Upon discharge, the patient needs to follow-up with his neurology team with 1- 2 weeks as outpatient ([facility]). DVT Prophylaxis: On eliquis. CONDITION: Is very guarded. The plan is discussed with patient's in length as well his nurse. UPDATE: * CT of the head is done and pending reported. I personally reviewed the CT of the head and I felt the patient had subacute the ischemic changes over the right parietal temporal region which is new compared to to the patient's last image on 08/14/2021. Pending final radiology report. * EEG the preliminary report is abnormal routine EEG. The background slowing is suggestive of moderate to severe encephalopathy. There is no seizure or epileptiform activity. * I will start the patient on prophylactic seizure medication because of moderate to large size of stroke which can cause cortical irritability and cause seizures for now (Keppra 500 mg every 12 hours) and down the line can gradually titrate medication down. * Avoid use of antiplatelets in addition with eliquis to avoid hemorrhagic conversion. I increase Lipitor from 40mg to 80mg. * Because of recurrence of the stroke I recommend a BARBARA. I discussed the finding with the ICU nurse and primary nurse practioner. I attempted to contact the multiple times but no response. Kaiser Ochoa M.D. Neuro-hospitalist Time with Patient: Greater than 30
--- NOTE | 2021-08-18 16:14 | P.PN ---
Subjective Progress Note Date: 08/18/21 CHIEF COMPLAINT: COVID-19 pneumonia HISTORY OF PRESENT ILLNESS: Patient is in the ICU for his COVID-19 pneumonia. Patient is status post PEG tube placement yesterday with Dr. cho. Patient has been hypoglycemic. Intensivists is requesting if possible for tube feedings to be started early due to the hypoglycemia and hyponatremia. Afebrile. 9 L high flow WBC 14.4 hemoglobin 10.4 platelets 139 sodium 130 PHYSICAL EXAM: VITAL SIGNS: Reviewed. GENERAL: Well-developed in no acute distress. HEENT: No sclera icterus. Extraocular movements grossly intact. Moist buccal mucosa. Head is atraumatic, normocephalic. ABDOMEN: Soft. Nondistended. Nontender. PEG tube site clean dry and intact NEUROLOGIC: Alert and oriented. Cranial nerves II through XII grossly intact. ASSESSMENT: 1. Severe protein calorie malnutrition status post PEG tube placement 2. COVID-19 pneumonia 4. Atrial fibrillation 4. Embolic strokes bilaterally PLAN: -Okay to start tube feedings this morning through PEG tube -Okay to resume Eliquis this evening from surgical standpoint -Continue ICU management -Continue supportive care Physician Cdl Service Technician note has been reviewed by physician. Signing provider agrees with the documented findings, assessment, and plan of care. Objective - Vital Signs Vital signs: Vital Signs Temp 98.8 F 08/18/21 12:00 Pulse 76 08/18/21 14:00 Resp 20 08/18/21 14:00 BP 132/62 08/18/21 14:00 Pulse Ox 99 08/18/21 14:00 Intake & Output 08/17/21 08/18/21 08/18/21 18:59 06:59 18:59 Intake Total 430 510 782 Output Total 2471 1010 395 Balance -2041 -500 387 Weight 63.5 kg Intake: IV 280 510 50 0.9 @ 10cc/hr 220 Dextrose 5% in Water 1, 60 510 50 000 ml @ 20 mls/hr IV . Q24H [facility] Rx#:[id number] Intake, IV Titration 100 300 Amount Piperacillin-Tazobactam 3 100 100 .375 gm In Sodium Chloride 0.9% 100 ml @ 25 mls/hr IVPB Q8HR [facility] Rx# :[id number] Potassium Chloride 10 meq 200 In Water For Injection 1 100ml.bag @ 100 mls/hr IVPB Q1HR [facility] Rx#: [id number] Tube Feeding 342 Other 50 90 Output: Urine 2470 1010 395 Stool 1 Other: Voiding Method Indwelling Catheter Indwelling Catheter Indwelling Catheter # Bowel Movements 1 - Labs CBC & Chem 7: 08/18/21 04:38 08/18/21 12:50 Labs: Abnormal Lab Results - Last 24 Hours (Table) 08/17/21 08/17/21 08/18/21 Range/Units 20:47 21:01 00:24 WBC (3.8-10.6) k/uL RBC (4.30-5.90) m/uL Hgb (13.0-17.5) gm/dL Hct (39.0-53.0) % Plt Count (150-450) k/uL Neutrophils # (1.3-7.7) k/uL Lymphocytes # (1.0-4.8) k/uL Sodium (137-145) mmol/L Potassium (3.5-5.1) mmol/L Chloride (98-107) mmol/L BUN (9-20) mg/dL Creatinine (0.66-1.25) mg/dL Glucose (74-99) mg/dL POC Glucose (mg/dL) 59 L 110 H 66 L (75-99) mg/dL Calcium (8.4-10.2) mg/dL AST (17-59) U/L Alkaline Phosphatase (38-126) U/L Total Protein (6.3-8.2) g/dL Albumin (3.5-5.0) g/dL 08/18/21 08/18/21 08/18/21 Range/Units 00:57 03:48 03:51 WBC (3.8-10.6) k/uL RBC (4.30-5.90) m/uL Hgb (13.0-17.5) gm/dL Hct (39.0-53.0) % Plt Count (150-450) k/uL Neutrophils # (1.3-7.7) k/uL Lymphocytes # (1.0-4.8) k/uL Sodium (137-145) mmol/L Potassium (3.5-5.1) mmol/L Chloride (98-107) mmol/L BUN (9-20) mg/dL Creatinine (0.66-1.25) mg/dL Glucose (74-99) mg/dL POC Glucose (mg/dL) 162 H 590 H 105 H (75-99) mg/dL Calcium (8.4-10.2) mg/dL AST (17-59) U/L Alkaline Phosphatase (38-126) U/L Total Protein (6.3-8.2) g/dL Albumin (3.5-5.0) g/dL 08/18/21 08/18/21 08/18/21 Range/Units 04:38 04:38 12:50 WBC 14.4 H (3.8-10.6) k/uL RBC 3.66 L (4.30-5.90) m/uL Hgb 10.4 L (13.0-17.5) gm/dL Hct 31.9 L (39.0-53.0) % Plt Count 139 L (150-450) k/uL Neutrophils # 12.5 H (1.3-7.7) k/uL Lymphocytes # 0.9 L (1.0-4.8) k/uL Sodium 123 L 130 L (137-145) mmol/L Potassium 3.4 L (3.5-5.1) mmol/L Chloride 91 L (98-107) mmol/L BUN 21 H 26 H (9-20) mg/dL Creatinine 0.59 L 0.63 L (0.66-1.25) mg/dL Glucose 348 H 240 H (74-99) mg/dL POC Glucose (mg/dL) (75-99) mg/dL Calcium 7.4 L 7.7 L (8.4-10.2) mg/dL AST 72 H (17-59) U/L Alkaline Phosphatase 170 H (38-126) U/L Total Protein 5.0 L (6.3-8.2) g/dL Albumin 2.2 L (3.5-5.0) g/dL 08/18/21 08/18/21 Range/Units 14:29 15:02 WBC (3.8-10.6) k/uL RBC (4.30-5.90) m/uL Hgb (13.0-17.5) gm/dL Hct (39.0-53.0) % Plt Count (150-450) k/uL Neutrophils # (1.3-7.7) k/uL Lymphocytes # (1.0-4.8) k/uL Sodium (137-145) mmol/L Potassium (3.5-5.1) mmol/L Chloride (98-107) mmol/L BUN (9-20) mg/dL Creatinine (0.66-1.25) mg/dL Glucose (74-99) mg/dL POC Glucose (mg/dL) 300 H 301 H (75-99) mg/dL Calcium (8.4-10.2) mg/dL AST (17-59) U/L Alkaline Phosphatase (38-126) U/L Total Protein (6.3-8.2) g/dL Albumin (3.5-5.0) g/dL
[2021-08-18 17:33] LABS: Glucose,Whole Blood 363 mg/dL (75-99)
--- NOTE | 2021-08-18 17:50 | PN ---
PROGRESS NOTE DATE OF SERVICE: 08/18/2021 REASON FOR FOLLOWUP: Pneumonia. INTERVAL COURSE: The patient is afebrile. The patient is currently on 9 L high-flow oxygen. The patient remains to be lethargic and unable to provide any history. No vomiting, diarrhea or any other changes reported by nursing staff. PHYSICAL EXAMINATION: Blood pressure 141/63 with a pulse of 75, temperature 98.6, 99% on 9 L nasal cannula. General description is an elderly male lying in bed in no distress. Respiratory system: Unlabored breathing, decreased breath sounds in the bases. No wheeze. Heart S1, S2. Regular rate and rhythm. Abdomen soft, no tenderness. LABS: BUN of 26, creatinine 0.63. DIAGNOSTIC IMPRESSION AND PLAN: Patient with pneumonia, question of aspiration etiology. The patient is currently covered with Zosyn to continue while monitoring clinical course closely. Continue supportive care. MMODL / IJN: [id number] /
[2021-08-18] MEDS: ATORVASTATIN 80 MG TAB PEG/G-TUBE SCH (20:42)
[2021-08-18] MEDS: APIXABAN 5 MG TAB PO SCH (20:42)
[2021-08-18] MEDS: levETIRAcetam 500 MG TAB PEG/G-TUBE SCH (20:42)
[2021-08-18] MEDS: INSULIN DETEMIR (LEVEMIR) 100 UNIT/ML SYR SQ SCH (20:43)
[2021-08-18 20:53] LABS: Glucose,Whole Blood 315 mg/dL (75-99)
[2021-08-19] MEDS: PIPERACILLIN-TAZOBACTAM 3.375 GM in SODIUM CHLORIDE 0.9% 100 ML IVPB SCH ×3 (00:55→15:57)
[2021-08-19 04:24] LABS: Glucose,Whole Blood 195 mg/dL (75-99)
--- NOTE | 2021-08-19 04:26 | P.PN ---
Subjective Progress Note Date: 08/18/21 Patient is a 75 -year-old pleasant male was transferred from a outside hospital for atrial fibrillation with rapid ventricular rate. Patient is presently on therapeutic dose of Lovenox. Also has highly elevated INR. His baseline creatinine is unknown but his present creatinine is around the 0.66, patient is receiving half-normal saline at 75 mL per hour patient is also on Remdesivir, presently on 15 L of oxygen, CT of the chest did not show any pulmonary embolism but did show diffuse infiltrate patient was having symptoms for about 4 days patient was unable to provide much of history to me patient is too tired and weak. Patient is not tolerating any by mouth medications at this time because of which patient was started on IV Cardizem patient usually takes metoprolol 25 twice a day. Patient doesn't have any history of congestive heart failure. Patient was started on Decadron as well. Patient has highly elevated d-dimer. 08/01/2021 Patient is seen in follow-up continues to be closely monitored in the ICU. Patient is extremely lethargic although is arousable and intermittently resp onding appropriately to questions and commands. Patient continues to have delayed response and altered mental status and CT of the brain was ordered. Neurology has been consulted and pulmonary along with urology following closely. She continues on IV heparin along with IV Cardizem. white blood count is 14.1, hemoglobin is stable at 16.1, d-dimer is above 34.10, sodium is 141 with a potassium of 4.5 and current creatinine is 0.61. LDH is 30-55 and CRP is 6.3. TSH is 0.112 and free T4 is 4.06. patient is maintained on 15 L high flow nasal cannula along with occasional intermittent nonrebreather. Patient is afebrile. 08/02/2021 Patient is seen in follow up this morning and is being closely monitored in the ICU with multiple medical consultations following including pulmonary, infectiou s disease, cardiology, and neurology. CT of the brain recommending MRI and this is ordered and pending. Patient is on 13L HF nasal cannula. Mentation slowly improving and answering questions appropriately. Patient continues to be extremely weak and fatigues easily. Cardiology planning to transition cardizem to oral and possibly starting eliquis. 08/03/2021 Patient is seen and evaluated in follow-up this morning and patient continues to improve although continues to be extremely weak and fatigued. Multiple medical consultations following an neurology recommending BARBARA although was reviewed by cardiology and no plans for BARBARA at this time as MRI along with CT confirms embolic stroke with MRI showing a few scattered areas of restricted diffusion in the inferior cerebellar hemispheres bilaterally with scattered areas of restricted diffusion present in the cerebellum, occipital lobes, as well as bilateral parietal lobes. Patient continued on subcutaneous heparin with discussion of possibly starting Eliquis in the next 2 days. Patient has been started on Brilinta an neurology is following closely. Speech has evaluated the patient and recommending continuing the patient with nothing by mouth except medications as the swallow eval was not able to be completed due to extreme fatigue and lethargy. Speech will reevaluate the patient once more alert and awake. White blood count today is 17.6 with a hemoglobin of 14.6, d-dimer is elevated at 27.78, sodium is 135 with a potassium of 3.6, BUN is 33 and creatinine is 0.59. Blood sugars are being closely monitored. Repeat x-ray and labs along with inflammatory markers in the a.m. Continuing to wean as tolerated and patient is maintained on 9 L high flow and maintaining oxygen saturations of 97%. Patient with atrial fibrillation currently rate controlled with metoprolol and cardiology is following. 08/04/2021 Patient is seen in follow-up this morning continues to be in the ICU and continues to drift often fall asleep easily although mentation has improved. Patient states the year as 1990 but also states he knows that is wrong and states he is currently in the hospital for Covid but was unaware of any recent stroke. Right side spa receptionist strength 4/5 improving although patient is unable to completely lift extremity and left side spa receptionist strength continues to be weak 2/5 and completely unable to lift this extremity. Multiple medical consultations including neurology, cardiology, explosives worker along with infectious disease following closely. Patient being resumed on Eliquis and Brilinta has been discontinued. Chest x-ray today shows diffuse mild infiltrates greater on the left that can be compatible with atypical pneumonia. Awaiting repeat swallow eval today with the possibility of TPN for enteral nutrition as patient has been nothing by mouth. Patient continues on 11 L high flow and recommend to wean as tolerated. White blood count today is 27.3 with a hemoglobin of 15.6, d-dimer is 24.3, sodium is 131 with a potassium of 4.9, BUN is 26 and creatinine is 0.59. CRP is 4.3. Patient continues on baricitinib along with dexamethasone and vitamin and zinc supplements and will continue. 08/05/2021 Patient is evaluated today in the ICU, he is maintained on a BiPAP at the time of my assessment. Plan is to titrate oxygen as needed. Chest x-ray today reveals persistent left greater than right bilateral multifocal opacities. Labs are reviewed, White blood cell count 25.2. His d-dimer today is elevated at 29.09 which is slightly increased. LDH is 2286, CRP 5.8, pro calcitonin 0.07. Sodium today is 131. Vital signs include blood pressure 113/62. Respirations are 20s. Patient has remained afebrile. Swallow evaluation was conducted again today for follow-up for dysphagia intervention, that recommendations are for dysphagia 1. With honey thick liquid, supervision with basic needs. Patient n eeds one-to-one feeding with cues to swallow. Patient continues on baricitinib along with dexamethasone and vitamin and zinc supplements and will continue. Patient was evaluated by neurology today who feels as increasing right-sided weakness. Brain CT of the head initially reveals embolic ischemic insults. A repeat brain CT has been ordered to compare. We will hold off any BARBARA at this time per neurology and cardiology recommendations. 08/06/2021 Pt is alert and oriented x 3 at the time of my examination. He reports breathing better, able to take a deep breath. He is now on a 5L HF cannula with oxygen saturations in the mid 90s. BP today is 122/76, HR 88, afebrile. Labs are reviewed today, include a WBC of 24.6, sodium of 132, B of 24, Cr 0.57. Inflammatory markers continue to be elevated. Neurology has signed off today. Pt was able to lift left upper extremity off the bed however drifted and touched the bed after 2 seconds, his hand grasp was unequal with left weaker than right. A repeat brain CT was ordered for increasing upper extremity weakness. 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 There is no acute bleed. Patient continues on baricitinib, dexamethasone, zinc, and vitamins and will continue. 08/07/2021 Patient was seen and evaluated in follow-up as morning continues to be closely monitored in the ICU. Patient stating his shortness of breath mildly worsened and was on 5 L and now 7 L high flow. White blood count elevated at 25.4 and hemoglobin is stable at 14.4, sodium is 132 with a potassium of 3.9 current creatinine is 0.56. Magnesium is 2.0. Multiple medical consultations including neurology, infectious disease, and pulmonary following. Chest x-ray today shows bilateral groundglass consolidation slightly worsened in the interval. Patient is fatigued although arousable and responding appropriately. Left-sided weakness continues. Patient continues on IV dexamethasone along with vitamin and zinc supplements continued on anti-coagulant in the form of Eliquis and Baricitinib. Patient was also maintained on sliding scale along with long acting insulin although sugars have been low and actually required one amp of dextrose for a sugar less than 50 and will discontinue long-acting and continue sliding scale as needed. 08/08/2021 Patient is seen and evaluated in follow-up currently placed on BiPAP as patient oxygen saturations continued to deteriorate and patient was more lethargic. Patient continues to be in the ICU being closely monitored. BiPAP FiO2 is 40%. Patient is continued on vitamin and zinc supplements along with baricitinib, IV dexamethasone and eliquis and will continue. Pulmonary following closely. Patient continues to be lethargic with continued poor oral intake an NG tube was placed and dietitian consulted to begin tube feeds. Recommend Accu-Cheks and use sliding scale as needed. Chest x-ray this morning shows persistent left greater than right bilateral multifocal and confluent opacification his consistent with COVID-19 and no significant change from previous. 08/09/2021 Patient is seen and evaluated this morning and having a brief episode of atrial fibrillation with RVR with a heart rate of 130's -150's and cardizem was ordered although IV lasix dose was given and oral metoprolol most recently and appears to have converted back in sinus rhythm. Patient was extremely restless and attempting to take bipap mask off. Patient was extremely anxious and expressing concern of having to have a bowel movement. Multiple medical consultations following. Medications being adjusted by cardiology and increasing metoprolol dose. Patient is maintained on eliquis and Baricitinib along with steroids and vitamin supplements. Continue tube feeds for nutritional support. 08/10/2021 Patient was seen and evaluated in follow-up this morning continues to be closely monitored in the ICU with multiple medical consultations including pulmonary explosives worker, infectious disease, and neurology has been asked to reevaluate the patient as patient continues to have intermittent periods of confusion but doesn't appear to be a change from previous. Patient is extremely lethargic and maintained on BiPAP although is arousable but continues to fatigue easily and follows sleep. Repeat CT of the brain has been ordered and pending. Patient continues on gentle IV hydration along with vitamin and zinc supplements and is maintained on oral anticoagulant along with IV dexamethasone. Patient is tolerating tube feedings via NG tube and blood sugars now mildly elevated and will continue sliding scale and Accu-Cheks before meals and at bedtime. White blood count is elevated at 24.4 and hemoglobin is 12.4, sodium remains low at 131 with a potassium of 3.9 and current creatinine is 0.59. LFTs within normal limits and pro calcitonin is 0.05. Chest x-ray this morning shows continued patchy peripheral bilateral Covid pneumonia with some slight improvement on the left. 08/11/2021 Patient is seen this morning continues to be closely monitored in the ICU. Patient was bipap dependent and recently being transitioned to high flow nasal cannula and currently on 6L HF and per nursing staff continuing to wean as tolerated. Patient was able to work with physical therapy today and continues to be extremely weak. Multiple medical consultations following. Per nursing staff, patient will continue in the ICU with possible downgrade to the selective unit in the next few days. Blood sugars have been increasing and will continue sliding scale and will add long acting. 08/12/2021 Patient seen in the ICU, he is an overflow patient. O2 requirements down to 5 L nasal cannula today, he is alert but confused. Sodium level coming up to 131, he continues on Decadron, blood sugars 162 this afternoon. Chest x-ray repeated today showing bilateral groundglass opacities, no pneumothorax or pleural effusion. Continues in Nico feedings, NG tube in place. No fevers, hemodyna mically stable 08/13/2021 Patient seen on reevaluation he is transferred out of the ICU and on the medical floor. He is more alert today, following commands able to move his extremities when prompted 2. He remains nothing by mouth, speech to reevaluate if he fails he may require PEG tube placement. He is currently on 5 L nasal cannula saturating above 90%, afebrile, hemodynamically stable 08/14/2021 Patient is seen and evaluated currently on 4 S. and has recently been placed back on airvo for acute respiratory distress and in a team was called. Patient was in A. fib RVR also and given a dose of IV push Lopressor. Patient is extremely lethargic and difficult to arouse today. Plan was for speech to reevaluate the patient today to wean off tube feeds and consult has been placed for possible PEG tube with general surgery. Repeat brain CT somewhat a previous exam with no acute changes noted. Chest x-ray shows some pulmonary edema and pleural fluid that is not significantly different from previous exam and clearing of soft tissue air on the left lateral chest wall compared to old exam and patient will receive a dose of IV Lasix. IV fluids discontinued. 08/15/2021 Patient is seen in follow-up this morning recently brought back to the ICU as respiratory status deteriorated and patient is back on BiPAP with an FiO2 of 60%. Patient continues to be extremely lethargic and minimally arousable and continued on tube feeds. Patient's blood pressures have been low and maintained on IV hydration. Multiple medical consultations following including pulmonary explosives worker and cardiology. Patient continued on IV dexamethasone along with oral anticoagulant and vitamin and zinc supplements and most recently started on IV Zosyn. Recommend to continue monitoring blood sugars closely as there was an episode of hypoglycemia last night and continued on sliding scale along with l lester-acting. Infectious disease also following. Chest x-ray today shows bilateral peripheral increased opacification is consistent with COVID-19 infection with no significant change from previous day. Family wishes for patient to remain full code with no intubation and will attempt again to address CODE STATUS as prognosis remains extremely guarded and poor. Patient also placed back on Cardizem drip for atrial fibrillation with RVR. 08/16/2021 Patient was seen and evaluated in follow-up this morning continues to be in the ICU being closely monitored. Patient is extremely lethargic and somewhat arousable following simple commands but falls asleep easily. Patient continues on BiPAP at 50%. Currently sinus rhythm and maintained on Lopressor 100 mg twice daily and Cardizem drip discontinued. Patient also continues on Eliquis which will be on hold as consult was placed for PEG tube placement as family would like to proceed with this. Patient is maintained on tube feedings via NG tube and surgery is planning for PEG tube in the morning. Patient also continues on IV dexamethasone along with vitamin and zinc supplements and IV Zosyn as well. Recommend continuing gentle IV hydration of normal saline at 75 ML per hour. Chest x-ray today which was personally reviewed by me shows bilateral lung infiltrates greater on the left possibly compatible with atypical pneumonia. 08/17/2021 Patient is seen in the follow-up continues to be in the ICU lethargic minimally arousable. Patient has been transitioned to high flow nasal cannula and will continue with BiPAP on standby and at night. Patient was started on 10 L and currently on 5 L high flow nasal cannula with oxygen saturation of 98%. Anticoagulant on hold currently as patient is scheduled to receive a PEG tube today for continued feedings. Patient does have an NG tube which can be discontinued once the PEG tube is approved for use by surgery. Multiple medical consultations including cardiology, pulmonary, surgery, neurology following. Patient continues on IV dexamethasone along with vitamin and zinc supplements and continues on IV Zosyn. Patient having elevated blood pressures and will discontinue IV fluids. 08/18/2021 Patient is seen this morning and has been started on peg tube feedings. Patient continues to be closely monitored in the ICU with multiple medical consultations following. Patient continues to be minimally responsive and per nursing staff more confused and neurology asked to reevaluate the patient. EEG and CT brain ordered. Patient had some hypoglycemic episodes and ok per surgery to start tube feeds. Will continue accuchecks and close monitoring. Will also continue sliding scale along with long acting insulin. Labs: WBC 14.4, hemoglobin 10.4, platelets 139, sodium is 130, potassium 4.5, BUN 26, creatinine is 0.63 Review of systems: Unable to obtain as patient is obtunded and minimally responsive All medications have been reviewed Active Medications Acetaminophen (Acetaminophen Tab 325 Mg Tab) 650 mg PO Q4HR PRN PRN Reason: Fever and/ or Pain Last Admin: 08/14/21 20:19 Dose: 650 mg Documented by: Apixaban (Apixaban 5 Mg Tab) 5 mg PO BID [facility]; Protocol Last Admin: 08/18/21 20:42 Dose: 5 mg Documented by: Ascorbic Acid (Ascorbic Acid 500 Mg Tab) 500 mg PO DAILY [facility] Last Admin: 08/18/21 08:58 Dose: 500 mg Documented by: Atorvastatin Calcium (Atorvastatin 80 Mg Tab) 80 mg PEG/G-TUBE HS [facility] Last Admin: 08/18/21 20:42 Dose: 80 mg Documented by: Calcium Carbonate/Glycine (Calcium Carbonate 500 Mg Chewable) 500 mg PO TID PRN PRN Reason: Heartburn Last Admin: 08/06/21 08:37 Dose: 500 mg Documented by: Cholecalciferol (Cholecalciferol 10 Mcg (400 Iu) Tablet) 10 mcg PO DAILY [facility] Last Admin: 08/18/21 09:06 Dose: 10 mcg Documented by: Dexamethasone Sodium Phosphate (Dexamethasone Sod Phosphate 10 Mg/Ml 1 Ml Vial) 6 mg IV DAILY [facility] Last Admin: 08/18/21 08:59 Dose: 6 mg Documented by: Hydromorphone HCl (Hydromorphone 0.5 Mg/0.5 Ml Syringe) 0.5 mg IVP Q2H PRN PRN Reason: Pain Hydromorphone HCl (Hydromorphone 1 Mg/Ml 1 Ml Syringe) 1 mg IVP Q4HR PRN PRN Reason: Pain Piperacillin Sod/Tazobactam (Sod 3.375 gm/ Sodium Chloride) 100 mls @ 25 mls/hr IVPB Q8HR [facility] Last Admin: 08/18/21 15:49 Dose: 25 mls/hr Documented by: Diltiazem HCl 125 mg/ Sodium (Chloride) 125 mls @ 5 mls/hr IV .Q24H [facility] Last Admin: 08/18/21 13:23 Dose: Not Given Documented by: Insulin Aspart (Insulin Aspart (Novolog) 100 Unit/Ml Vial) 0 unit SQ Q4H [facility]; Protocol Last Admin: 08/18/21 18:37 Dose: 6 unit Documented by: Insulin Detemir (Insulin Detemir (Levemir) 100 Unit/Ml Syr) 15 unit SQ [facility] Last Admin: 08/18/21 20:43 Dose: 15 unit Documented by: Levetiracetam (Levetiracetam 500 Mg Tab) 500 mg PEG/G-TUBE Q12HR [facility] Last Admin: 08/18/21 20:42 Dose: 500 mg Documented by: Metoprolol Tartrate (Metoprolol Tartrate 50 Mg Tab) 100 mg PO BID [facility] Last Admin: 08/18/21 20:42 Dose: 100 mg Documented by: Miscellaneous Information (Potassium Replacement Protocol 1 Each Misc) 1 each MISCELLANE DAILY PRN; Protocol PRN Reason: Per Protocol Miscellaneous Information (Magnesium Replacement Protocol 1 Each Misc) 1 each MISCELLANE DAILY PRN; Protocol PRN Reason: Per Protocol Pantoprazole Sodium (Pantoprazole 40 Mg/10 Ml Vial) 40 mg IVP BID [facility] Last Admin: 08/18/21 20:42 Dose: 40 mg Documented by: Sodium Chloride (Sodium Chloride 0.9% Flush 10 Ml Syringe) 10 ml IV Q4HR PRN PRN Reason: PICC Line Sodium Chloride (Sodium Chloride 0.9% Flush 10 Ml Syringe) 10 ml IV WEEKLY [facility] Last Admin: 08/16/21 09:00 Dose: 10 ml Documented by: Sodium Chloride (Sodium Chloride 0.9% Flush 10 Ml Syringe) 20 ml IV Q4HR PRN PRN Reason: PICC Line Zinc Sulfate (Zinc Sulfate 220 Mg Cap) 220 mg PO DAILY [facility] Last Admin: 08/18/21 08:58 Dose: 220 mg Documented by: PHYSICAL EXAMINATION: GENERAL: The patient is alert and oriented x1, extremely lethargic. Minimally responsive. sleeping and not following commands. Thin built. Continues on BiPAP at night and currently on high flow nasal cannula 15L. Temp is 98.4, pulse is 76, resp are 18, blood pressure is 131/60, and 02 is 96% on high flow oxygen of 15 L HEENT: Pupils are round and equally reacting to light. EOMI. No scleral icterus. No conjunctival pallor. Normocephalic, atraumatic. No pharyngeal erythema. No thyromegaly. CARDIOVASCULAR: S1 and S2 muffled. PULMONARY: Diffuse bilateral coarse rhonchi and scattered crackles noted with diminished breath sounds at the bases ABDOMEN: Soft, nontender, nondistended, normoactive bowel sounds. No palpable organomegaly. MUSCULOSKELETAL: No joint swelling or deformity. EXTREMITIES: No cyanosis, clubbing, or pedal edema. NEUROLOGICAL: obtunded, extremely lethargic. Diffusely weak SKIN: No rashes. 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 measuring 6x4cm as noted on CT 08/18/2021, new compared to previous exam -Possible metabolic encephalopathy -Dysphagia, high risk for aspiration -Status post PEG tube placement -Atrial fibrillation with rapid ventricular rate new onset -elevated d-dimer with no evidence of PE on CTA -Mild protein calorie malnutrition secondary to poor oral intake due to respiratory status deterioration -altered mental status possibly secondary to COVID-19 encephalopathy or possibly secondary to bilateral hemispheric stroke -Bilateral hemispheric stroke over the cerebellar occipital region and parietal lobes as noted on MRI -Type 2 diabetes mellitus, uncontrolled with elevated blood sugars -Hyperlipidemia -Hypertension -DVT prophylaxis: eliquis -full code with no intubation Plan: Patient to continue on current medications and closely monitor. Continue with weaning 02 as tolerated. Patient will continue with BiPAP as needed and at night and transitioned to high flow nasal cannula currently on 15 L high flow with oxygen saturations in the 90s. Continued on eliquis which was resumed today. Patient obtunded and minimally responsive and per nursing staff, more confused when arousable and extremely lethargic. Repeat CT findings show a new right frontoparietal acute infarct in the MCA distribution measuring 6x4cm as noted on CT 08/18/2021, new compared to previous exam. Neurology following. Recommending BARBARA. Cardiology following as well. EEG continues to be abnormal with no epileptiform activity noted. Patient being started on Keppra. Tube feedings have been resumed and ok to use PEG tube per surgery. Recommend accuchecks and close monitoring of blood sugars as there have been episodes of hypoglycemia and will monitor for hyperglycemia and continue sliding scale and long acting. Patient also continues on IV dexamethasone, vitamin and zinc supplements. Patient also continues on IV cefepime. Patient has received Baricitinib. Patient remains in the ICU for close monitoring. Multiple medical consultations following. Due to multiple complex medical issues, Prognosis is extremely guarded. Objective - Vital Signs Vital signs: Vital Signs Temp 98.1 F 08/18/21 04:00 Pulse 72 08/18/21 07:00 Resp 18 08/18/21 07:00 BP 133/67 08/18/21 07:00 Pulse Ox 95 08/18/21 07:00 Intake & Output 08/17/21 08/18/21 08/18/21 18:59 06:59 18:59 Intake Total 430 510 50 Output Total 2471 1010 45 Balance -2040 -500 5 Intake: IV 280 510 50 0.9 @ 10cc/hr 220 Dextrose 5% in Water 60 510 50 000 ml @ 20 mls/hr IV . Q24H ONE Rx#:[id number] Intake, IV Titration 100 Amount Piperacillin-Tazobactam 3 100 .375 gm In Sodium Chloride 0.9% 100 ml @ 25 mls/hr IVPB Q8HR [facility] Rx# :[id number] Other 50 Output: Urine 2470 1010 45 Stool 1 Other: Voiding Method Indwelling Catheter Indwelling Catheter - Labs CBC & Chem 7: 08/18/21 04:38 08/18/21 12:50 Labs: Abnormal Lab Results - Last 24 Hours (Table) 08/17/21 08/17/21 08/17/21 Range/Units 11:30 11:32 11:48 WBC (3.8-10.6) k/uL RBC (4.30-5.90) m/uL Hgb (13.0-17.5) gm/dL Hct (39.0-53.0) % Plt Count (150-450) k/uL Neutrophils # (1.3-7.7) k/uL Lymphocytes # (1.0-4.8) k/uL Sodium (137-145) mmol/L Potassium (3.5-5.1) mmol/L Chloride (98-107) mmol/L BUN (9-20) mg/dL Creatinine (0.66-1.25) mg/dL Glucose (74-99) mg/dL POC Glucose (mg/dL) 58 L 60 L 154 H (75-99) mg/dL Calcium (8.4-10.2) mg/dL AST (17-59) U/L Alkaline Phosphatase (38-126) U/L Total Protein (6.3-8.2) g/dL Albumin (3.5-5.0) g/dL 08/17/21 08/17/21 08/17/21 Range/Units 15:21 15:45 20:47 WBC (3.8-10.6) k/uL RBC (4.30-5.90) m/uL Hgb (13.0-17.5) gm/dL Hct (39.0-53.0) % Plt Count (150-450) k/uL Neutrophils # (1.3-7.7) k/uL Lymphocytes # (1.0-4.8) k/uL Sodium (137-145) mmol/L Potassium (3.5-5.1) mmol/L Chloride (98-107) mmol/L BUN (9-20) mg/dL Creatinine (0.66-1.25) mg/dL Glucose (74-99) mg/dL POC Glucose (mg/dL) 65 L 116 H 59 L (75-99) mg/dL Calcium (8.4-10.2) mg/dL AST (17-59) U/L Alkaline Phosphatase (38-126) U/L Total Protein (6.3-8.2) g/dL Albumin (3.5-5.0) g/dL 08/17/21 08/18/21 08/18/21 Range/Units 21:01 00:24 00:57 WBC (3.8-10.6) k/uL RBC (4.30-5.90) m/uL Hgb (13.0-17.5) gm/dL Hct (39.0-53.0) % Plt Count (150-450) k/uL Neutrophils # (1.3-7.7) k/uL Lymphocytes # (1.0-4.8) k/uL Sodium (137-145) mmol/L Potassium (3.5-5.1) mmol/L Chloride (98-107) mmol/L BUN (9-20) mg/dL Creatinine (0.66-1.25) mg/dL Glucose (74-99) mg/dL POC Glucose (mg/dL) 110 H 66 L 162 H (75-99) mg/dL Calcium (8.4-10.2) mg/dL AST (17-59) U/L Alkaline Phosphatase (38-126) U/L Total Protein (6.3-8.2) g/dL Albumin (3.5-5.0) g/dL 08/18/21 08/18/21 08/18/21 Range/Units 03:48 03:51 04:38 WBC (3.8-10.6) k/uL RBC (4.30-5.90) m/uL Hgb (13.0-17.5) gm/dL Hct (39.0-53.0) % Plt Count (150-450) k/uL Neutrophils # (1.3-7.7) k/uL Lymphocytes # (1.0-4.8) k/uL Sodium 123 L (137-145) mmol/L Potassium 3.4 L (3.5-5.1) mmol/L Chloride 91 L (98-107) mmol/L BUN 21 H (9-20) mg/dL Creatinine 0.59 L (0.66-1.25) mg/dL Glucose 348 H (74-99) mg/dL POC Glucose (mg/dL) 590 H 105 H (75-99) mg/dL Calcium 7.4 L (8.4-10.2) mg/dL AST 72 H (17-59) U/L Alkaline Phosphatase 170 H (38-126) U/L Total Protein 5.0 L (6.3-8.2) g/dL Albumin 2.2 L (3.5-5.0) g/dL 08/18/21 Range/Units 04:38 WBC 14.4 H (3.8-10.6) k/uL RBC 3.66 L (4.30-5.90) m/uL Hgb 10.4 L (13.0-17.5) gm/dL Hct 31.9 L (39.0-53.0) % Plt Count 139 L (150-450) k/uL Neutrophils # 12.5 H (1.3-7.7) k/uL Lymphocytes # 0.9 L (1.0-4.8) k/uL Sodium (137-145) mmol/L Potassium (3.5-5.1) mmol/L Chloride (98-107) mmol/L BUN (9-20) mg/dL Creatinine (0.66-1.25) mg/dL Glucose (74-99) mg/dL POC Glucose (mg/dL) (75-99) mg/dL Calcium (8.4-10.2) mg/dL AST (17-59) U/L Alkaline Phosphatase (38-126) U/L Total Protein (6.3-8.2) g/dL Albumin (3.5-5.0) g/dL
[2021-08-19] MEDS: INSULIN ASPART (NovoLOG) 100 UNIT/ML VIAL SQ SCH ×6 (04:29→22:40)
[2021-08-19 05:18] LABS: Basophils % (A) 0 %; Eosinophils # (A) 0.6 k/uL (0-0.7); Eosinophils % (A) 4 %; HCT 34.2 % (39.0-53.0); HGB 11.2 gm/dL (13.0-17.5); Lymphocytes # (A) 0.8 k/uL (1.0-4.8); Lymphocytes % (A) 5 %; MCH 28.3 pg (25.0-35.0); MCHC 32.8 g/dL (31.0-37.0); MCV 86.3 fL (80.0-100.0); Monocytes # (A) 0.4 k/uL (0-1.0); Monocytes % (A) 3 %; Neutrophils # (A) 14.3 k/uL (1.3-7.7); Neutrophils % (A) 88 %; Platelet Count 200 k/uL (150-450); RBC 3.97 m/uL (4.30-5.90); RDW 15.6 % (11.5-15.5); WBC 16.3 k/uL (3.8-10.6)
[2021-08-19 05:37] LABS: INR 1.1 (<1.2); Prothrombin Time 11.9 sec (9.0-12.0)
[2021-08-19 05:42] LABS: African American GFR (CKD) >90 (>60 ml/min/1.73 sqM); Anion Gap 4 mmol/L; Blood Urea Nitrogen 34 mg/dL (9-20); Calcium 7.9 mg/dL (8.4-10.2); Carbon Dioxide 29 mmol/L (22-30); Chloride 99 mmol/L (98-107); Glucose 177 mg/dL (74-99); Non-African American GFR(CKD) 86 (>60 ml/min/1.73 sqM); Potassium 3.9 mmol/L (3.5-5.1); Sodium 132 mmol/L (137-145)
[2021-08-19 06:22] LABS: Glucose,Whole Blood 186 mg/dL (75-99)
--- NOTE | 2021-08-19 06:50 | XR ---
EXAMINATION TYPE: XR chest 1V portable DATE OF EXAM: 08/19/2021 COMPARISON: 08/18/2021 HISTORY: Shortness of breath TECHNIQUE: Single frontal view of the chest is obtained. FINDINGS: There is been no change in the diffuse scattered interstitial partial airspace opacities. There is no large pleural effusion and there is no pneumothorax. Heart size is normal. The osseous st ructures are intact. IMPRESSION: No interval change in the diffuse lung infiltrates is described above.
[2021-08-19] MEDS: POTASSIUM CHLORIDE 10 MEQ in WATER FOR INJECTION 1 100ML.BAG IVPB SCH ×2 (08:27→10:07)
[2021-08-19] MEDS: DEXAMETHASONE SOD PHOSPHATE 10 MG/ML 1 ML VIAL IV SCH (08:27)
[2021-08-19] MEDS: PANTOPRAZOLE 40 MG/10 ML VIAL IVP SCH ×2 (08:27→22:41)
[2021-08-19] MEDS: ZINC SULFATE 220 MG CAP PO SCH (08:29)
[2021-08-19] MEDS: ASCORBIC ACID 500 MG TAB PO SCH (08:29)
[2021-08-19] MEDS: levETIRAcetam 500 MG TAB PEG/G-TUBE SCH (08:29)
[2021-08-19] MEDS: METOPROLOL TARTRATE 50 MG TAB PO SCH ×2 (08:29→22:41)
[2021-08-19] MEDS: DILTIAZEM 125 MG in SODIUM CHLORIDE 0.9% 100 ML IV SCH (08:29)
[2021-08-19] MEDS: APIXABAN 5 MG TAB PO SCH ×2 (08:29→22:41)
[2021-08-19] MEDS: CHOLECALCIFEROL 10 MCG (400 IU) TABLET PO SCH (08:29)
[2021-08-19 10:13] LABS: Glucose,Whole Blood 133 mg/dL (75-99)
--- NOTE | 2021-08-19 11:47 | P.PN ---
Subjective Progress Note Date: 08/19/21 The patient is seen at bedside and continues to be altered and is about the same per the patient's nurse. She stated that she thinks the patient Judith was held one day for PEG tube. I looked in MAR and it was restarted on 08/18/2021 night dose. I spoke with pharmacy and last dose was 08/15/2021 night and restarted on 08/18/2021 at night (so he missed 5 doses) in total. Objective - Vital Signs Vital signs: Vital Signs Temp 98.8 F 08/19/21 08:00 Pulse 77 08/19/21 09:00 Resp 16 08/19/21 09:00 BP 151/63 08/19/21 09:00 Pulse Ox 100 08/19/21 09:00 Intake & Output 08/18/21 08/19/21 08/19/21 18:59 06:59 18:59 Intake Total 1120 884 434 Output Total 595 471 115 Balance 525 413 319 Weight 63.5 kg 60.3 kg Intake: IV 50 110 30 10cc/hr 110 30 Dextrose 5% in Water 1, 50 000 ml @ 20 mls/hr IV . Q24H [facility] Rx#:[id number] Intake, IV Titration 400 200 Amount Piperacillin-Tazobactam 3 200 100 .375 gm In Sodium Chloride 0.9% 100 ml @ 25 mls/hr IVPB Q8HR [facility] Rx# :[id number] Potassium Chloride 10 meq 100 In Water For Injection 1 100ml.bag @ 100 mls/hr IVPB Q1H [facility] Rx#: [id number] Potassium Chloride 10 meq 200 In Water For Injection 1 100ml.bag @ 100 mls/hr IVPB Q1HR [facility] Rx#: [id number] Tube Feeding 550 684 114 Other 120 90 90 Output: Urine 595 470 115 Stool 1 Other: Voiding Method Indwelling Catheter Indwelling Catheter Indwelling Catheter # Bowel Movements 1 - Exam GENERAL: The patient is lying in bed and is not in acute distress. NEUROLOGICAL: Higher mental function: The patient is drowsy and not verbally responsive or following commands. He is moaning. Cranial nerves: I had to manually open his eyes. The pupils are round, right is 3mm and left is 2mm and reactive to light. He has right gaze preference and then would look to center. Could not assess visual disturbance or EOM because of his condition. He had left nasolabial flattening. Could not assess rest of cranial nerves because of his condition. Motor: Gait is deferred. The strength is he is he is withdrawing over the right upper and lower extremity to painful stimuli but not left. Could not assess individual muscles because of his condition. Decrease tone throughout. Cerebellum: Could not assess. Sensation: Could not assess light touch but he has is withdrawing to painful stimuli on right side and grimaces on left. Reflexes (right/left): 1+ throughout. Plantars are mute over the right and upgoing on the left. WORK-UP: * Patient had multiple CT's. * Carotid duplex is reported as there is antegrade flow in the vertebral arteries. Images and measurements suggest 35% stenosis in both internal carotid arteries. * MRI of the brain report is reported as diffuse scattered area of restricted diffusion, correlate for embolic phenomena. In the body they reported it is reported that the patient has diffusion weighted image demonstrated restricted effusion and inferior cerebellar hemispheres bilaterally, scattered area of restricted diffusion in the cerebellum, occipital lobes are noted bilaterally as well as bilateral parietal. Encephalomalacia was noted in the region of the thalamus over the right likely due to chronic vascular insult. Scattered area of hyperdensity present in that. Colossal, periventricular and subcortical white matter on inversion recovery T2-weighted images are currently related to chronic small vessel ischemic changes also noted. I personally reviewed that MRI the brain and I do agree patient has bilateral hemispheric stroke over the cerebellar occipital region parietal, frontal is seems embolic in nature. * CT angiography of the head and neck was reported as atheromatous plaquing present bilaterally slightly greater on the left. No flow limiting stenosis bilateral carotid bifurcation. Finding are stable from 12/04/2019 at. Normal [place]. * Most recent CT of the head is on 08/14/2021 it's reported as cerebral atrophy. No acute intracranial abnormality. Old right thalamic lacunar infarct. No change. * CT head 08/18/2021: It is reported as moderate to large size involving 6X4cm right frontoprarietal acute infarct in the MCA distribution now acute infarct in the MCA distribution now identified. I reviewed images felt the MCA distribution is subacute * 2-D echo was reported as left ventricle size is normal. Moderate consider Limbitrol hypertrophy. Ejection fraction of 55-60%. Left ventricle filling pressure cannot be at estimated due to 8 atrial fibrillation. * Routine EEG on 08/02/2021 is abnormal. The back or slowing suggestive of moderate to severe encephalopathy. There are no focal slowing, epileptiform discharges or seizure in the EEG. Clinical correlation is recommended. * Repeat routine EEG on 08/18/2021 as abnormal. The back was SUGGESTIVE of moderate to severe encephalopathy. There are no epileptiform discharges or seizure on the EEG. The current EEG is unchanged to previous EEG on 08/02/2021. * Lipid panel is triglyceride of 104, cholesterol of 96, LDL 28 and HDL of 46. * AST of 115 and ALT of 77 * TSH is 0.112 and the free T4 is 4.06 * Hemoglobin A1c is 9.2 * Vitamin B12 is 2006 177 which is above normal but it's unremarkable. * Serum folate level is 5.70 and the normal supposed to be between 4.4-31 - Labs CBC & Chem 7: 08/19/21 04:56 08/19/21 04:56 Labs: Abnormal Lab Results - Last 24 Hours (Table) 08/18/21 08/18/21 08/18/21 Range/Units 12:50 14:29 15:02 WBC (3.8-10.6) k/uL RBC (4.30-5.90) m/uL Hgb (13.0-17.5) gm/dL Hct (39.0-53.0) % RDW (11.5-15.5) % Neutrophils # (1.3-7.7) k/uL Lymphocytes # (1.0-4.8) k/uL Sodium 130 L (137-145) mmol/L BUN 26 H (9-20) mg/dL Creatinine 0.63 L (0.66-1.25) mg/dL Glucose 240 H (74-99) mg/dL POC Glucose (mg/dL) 300 H 301 H (75-99) mg/dL Calcium 7.7 L (8.4-10.2) mg/dL 08/18/21 08/18/21 08/19/21 Range/Units 17:32 20:51 04:21 WBC (3.8-10.6) k/uL RBC (4.30-5.90) m/uL Hgb (13.0-17.5) gm/dL Hct (39.0-53.0) % RDW (11.5-15.5) % Neutrophils # (1.3-7.7) k/uL Lymphocytes # (1.0-4.8) k/uL Sodium (137-145) mmol/L BUN (9-20) mg/dL Creatinine (0.66-1.25) mg/dL Glucose (74-99) mg/dL POC Glucose (mg/dL) 363 H 315 H 195 H (75-99) mg/dL Calcium (8.4-10.2) mg/dL 08/19/21 08/19/21 08/19/21 Range/Units 04:56 04:56 06:20 WBC 16.3 H (3.8-10.6) k/uL RBC 3.97 L (4.30-5.90) m/uL Hgb 11.2 L (13.0-17.5) gm/dL Hct 34.2 L (39.0-53.0) % RDW 15.6 H (11.5-15.5) % Neutrophils # 14.3 H (1.3-7.7) k/uL Lymphocytes # 0.8 L (1.0-4.8) k/uL Sodium 132 L (137-145) mmol/L BUN 34 H (9-20) mg/dL Creatinine (0.66-1.25) mg/dL Glucose 177 H (74-99) mg/dL POC Glucose (mg/dL) 186 H (75-99) mg/dL Calcium 7.9 L (8.4-10.2) mg/dL Assessment and Plan Assessment: * Multiple strokes during this admission (Subacute Right MCA stroke which is new compared to his previous CT 08/14/2021 and bilateral hemispheric stroke on 08/01/2021). Strokes due to embolic in natures (seems cardiembolic). * Right MCA stroke seems subacute with left sided weakness. No IV tpa since on anticoagulation, outside window and has previous recent stroke (It is documented he had left sided weakness around 08/13/2021 so would assume his stroke happened around that time and the CT head on 08/14/2021 was too acute to be seen) * Bilateral hemisphere stroke during this admission (seen on 08/01/2021). Seems likely due cardioembolic in nature of atrial fibrillation * Worsening of altered mental status due to multifactorial: Predomaintely stroke, component of metabolic encephalopathy and component of hypoxic encephalopathy from COVID-19 pneumonia. * Brittle Diabetes (currently better controlled) * COVID-19 related pneumonia with secondary hypoxic respiratory failure * Dysphagia status post PEG tube on 08/17/2021 due to his stroke * Hyponatremia due to diuresis--improving (most current 132) * History of old stroke 11/2019 and TIA 01/2020 without residual weakness or focality * Atrial fibrillation currently on Eliquis * Diabetes mellitus that is not controlled (recent HbA1c is 9.2) * Hyperlipidemia * History of Hypertension Plan: * On Eliquis 5 mg 1 tablet twice since has history of atrial fibrillation. Will start the patient on ASA starting tomorrow. Continue Lipitor 80 mg daily. * PT, OT and [employer] CLOTH INSPECTOR are consulted * Continue cardiac monitoring * Continue neuro checks * Cardiology is on board. * Pending BARBARA. * Please avoid any hypoglycemia and recommend euglycemia. We'll defer the management to the primary as well as the ICU team. * Defer the electrolyte imbalance to the primary as well as ICU team. * We'll defer the rest of the medical management to the primary as well as a ICU team. * Recommend consideration of rehab and if possible inpatient. * Upon discharge, the patient needs to follow-up with his neurology team with 1- 2 weeks as outpatient ([facility]). DVT Prophylaxis: On eliquis. CONDITION: Seem critical and I feel at this point his quality of life appear p oor. The plan is discussed with patient's in length as well his nurse. I discussed the finding with the patient's via phone and she stated she does not want to pursue with BARBARA and or any further neurological imaging or investigation at this time and would like just continue medical management. She does not want to make him comfort care. Will consult hospice team. Kaiser Ochoa M.D. Neuro-hospitalist Time with Patient: Less than 30
[2021-08-19 12:07] LABS: Glucose,Whole Blood 169 mg/dL (75-99)
--- NOTE | 2021-08-19 12:51 | P.PN ---
Subjective Progress Note Date: 08/19/21 Principal diagnosis: Cerebrovascular accident. On 08/13/2021 patient seen in follow-up on medical surgical floor. He is lethargic on today's exam, but does arouse to voice, he answers simple questions, he follows simple command, appears very weak, but breathing comfortably, he is currently on 5 L of oxygen with pulse ox of 92-97%, his been afebrile, doesn't appear to be in any acute distress, however his head is laying down on his shoulder, does not seem to be able to hold up his head erect. He knew the place and is oriented to person, but he thinks the president is Shlomo, and after a couple of hints he did say that the president is Etienne. His NG tube remains in place, and he has tube feedings infusing, he has been tolerating tube feedings well, she remains on Decadron 6 mg daily, he is on Eliquis 5 mg twice daily, he continues on IV fluids with 0.9 at 75. His chest x-ray from yesterday shows bilateral groundglass opacities within the lungs, NG tube is in appro priate position, no evident pneumothorax or pleural effusion, and there is a left-sided PICC line in place. Today's labs have been reviewed, his white blood cell count is improving and is down to 18.6, hemoglobin is 11.6, his sodium is improving and is up to 133, the rest of electrolytes were within normal limits, BUN is 21 creatinine 0.62, his ALT is up slightly at 53, AST was 51, alkaline phosphatase is relatively stable at 191 up slightly from 182, and his last pro- calcitonin that was done on 08/10/2021 was negative at 0.05. Patient has had no fever or chills. Patient has been nothing by mouth in view of his hypoxia, BiPAP dependence, recent stroke this admission, and overall generalized weakness and high aspiration risk. We'll obtain speech evaluation On 08/14/2021 patient seen in follow-up on medical surgical floor, he is more lethargic on today's exam, he requires repeated for most stipulation, and tactile stimulation to open his eyes, does not appear to be in any acute dis tress, rapid response team was called last night, for worsening hypoxia, tachypnea, and his heart rate was in the 130s, A. fib with RVR, his blood pressure was elevated at greater than 190 systolic. Patient was noted to have oxygen saturations in the low 80s on the 100% non-rebreather. He did have a temp of 101.5F, chest x-ray was repeated showing pulmonary edema and pleural fluid is not significantly different from his last exam. Patient was placed on Airvo on which she remains, initially at 60 L an FiO2 of 93%, his pulse ox did improve. Subsequently his FiO2 was dropped down to 80%, his pulse ox is still 96-99%. Today's labs show increased white blood cell, which is currently at 33.2, hemoglobin of 12.7, d-dimer is 14.04, sodium is 131, potassium is 4.0, chloride is 95, BUN is 25 creatinine 0.61. Remains on Decadron 6 mg daily, she was given a dose of IV push Lopressor, he continues on Lopressor 100 mg by mouth twice daily. His mentation remains lethargic, and patient is an increased risk for aspiration. He was supposed to be seen by speech therapy today and have a swallow evaluation to evaluate for potential ability to eat by mouth. It was suspected that he will need a PEG tube. He still has the NG tube in his nose, and receiving tube feedings with vital AF at rate of 57. On 08/15/2021 patient seen in follow-up in intensive care unit where she was transferred last night. Patient continued to desaturate on the floor, and required to be placed on BiPAP support, currently with pressures of 16 and 10 and FiO2 of 90%. Remains extremely lethargic. Afebrile, and not requiring any vasopressor support, he is on 0.9 normal significantly to 20 ML per hour, he has not been able to complete swallow evaluation related to his extremely poor mental status, which seems to be worsening. Repeat brain CT yesterday showed a cerebral bilaterally, no acute intracranial abnormality, and old right thalamic lacunar infarct. No change from previous CT of the brain. Yesterday we empirically started the patient on Zosyn for possibility of aspiration related pneumonitis. This white blood cell count is slightly improved today, however still elevated at 29.8, hemoglobin is 10.4, d-dimer is down to 3.8, sodium is 134, potassium 3.7, chloride is 100, B1 is 35, creatinine 0.71, LDH is down to 1462, improving, CRP is up to 19.9. Patient continues on Eliquis, currently r emains in sinus mechanism with a controlled rate, yesterday during episode of worsening dyspnea and hypoxia, he was requiring Cardizem infusion for rate control, Cardizem drip is currently discontinued. Addition patient continues on dexamethasone 6 mg daily, COVID vitamins. Today's chest x-ray shows bilateral peripheral increased opacities consistent with COVID-19 infection. No significant change from one day earlier, patient's spouse was updated on his condition, and the decision was made not to proceed with intubation and placement on mechanical ventilator should his condition continued to deteriorate. On 08/17/2021 patient seen in follow-up in the intensive care unit. he still very lethargic, he barely opens his eyes to repeated verbal and tactile stimulation, he is currently on BiPAP support with pressures of 16/10, and FiO2 of 40%, his pulse ox is 94%. NG tube remains in place for tube feedings that are currently on hold, general surgery has been consulted for placement of PEG tube which is scheduled for today. Patient is on 0.9 normal sinus rate is 75 ML per hour, he remains on Zosyn for possibility of aspiration pneumonia. he remains on Decadron 6 mg once daily, he is on COVID vitamins. He is not requiring any vasopressor support. Level of consciousness and his mental status have remained abnormal, patient has been quite somnolent, she suspected to have abnormal swallowing, and aspiration pneumonia. Been afebrile, blood pressure is elevated with the systolic in the 160s to 170s, and diastolic in the 70s and 80s. He is currently in A. fib with RVR with a rate of 157. Patient has not had his morning medications yet, he is due for his Lopressor dose 100 mg per the PEG tube. Anticoagulation is on hold right now for PEG tube placement. Generally patient appears to be very swollen. Patient's weight is up by 0.4 kg in last 24 hours, and overall patient is at least 11 kg positive since admission. Urine output is in the order of 100-200 mL an hour. Patient does not appear to be in any acute distress, however he needs positive pressure ventilation intermittently and at bedtime. he could be placed on high flow nasal cannula intermittently. On today's evaluation on 08/18/2021 patient is seen in follow-up in the intensive care unit, he still quite lethargic, he is able to open his eyes repeated verbal stimulation. Very weak, he is on BiPAP support with pressures of 16/10 and FiO2 of 40%, with a pulse ox of 91%, yesterday he tolerated high fl ow nasal cannula, and by the end of the evening he was down to 4 L, and for the nighttime she was placed back on positive pressure ventilation via BiPAP. Patient had a PEG tube placed yesterday, at around 1:00, tube feedings have been on hold since yesterday, we anticipate starting tube feedings this morning. Overnight patient had episodes of hypoglycemia. And he received D5W at a rate of 50 ML per hour. In addition yesterday she received a dose of IV Lasix and he is -2.5 L net fluid balance over the last 24 hours. However his sodium is down to 123 from previously at 131 on yesterday's labs. Serum potassium is 3.4, chloride is 91, BUN is 21 creatinine 0.59, this morning's blood sugar recheck revealed a blood sugar of 348, capillary blood glucose was 100. Tube feedings remain on hold for now. White blood cell count is trending down and is down to 14.4, hemoglobin is 10.4, last pro calcitonin level from 08/14/2021 was 0.26. Patient is currently on Zosyn for empiric antibiotic coverage. Today's chest x- ray is pending. Patient is in sinus mechanism with a rate of 82, blood pressure is 131/60, he was just switched over to high flow nasal cannula at 15 L and his pulse ox is actually improved and is up to 99-100%. Left consciousness remains very lethargic, patient is trying to follow simple command, he is able to squeeze with his right hand, unable to squeeze with his left hand. Generally he is very weak. His cough is weak. Lung sounds reveal diffuse rhonchi throughout the lung [place]. Progress note dated 08/19/2021. The patient is again seen in the intensive care unit, room 261. Unfortunately, the patient was found to have a moderate to large right frontal parietal acute infarct. The patient does have a PEG tube in place. He is receiving vital 1.2 at 57 mL an hour, which is goal. White count 16.3, heme him a lump 0.2, hematocrit 34.2, platelet count 200,000. PT/INR are normal. Sodium 132, potassium 3.9, chlorides 99, CO2 29, anion gap 4, BUN 34, creatinine 0.81. Calcium is 7.9. The patient is still very poorly responsive. I did have a long discussion with the yesterday, who would like to continue supporting the patient, short of intubation and mechanical ventilation. The situation in my opinion is nearly futile given the recent development is seen on the most recent computed tomography scan. The patient's getting 6 L nasal cannula. He is getting saline at 10 mL an hour. Chest x-ray today shows diffuse bilateral infiltrates, which are unchanged. Objective - Vital Signs Vital signs: Vital Signs Temp 98.8 F 08/19/21 08:00 Pulse 71 08/19/21 10:00 Resp 20 08/19/21 10:00 BP 124/60 08/19/21 10:00 Pulse Ox 92 L 08/19/21 10:00 Intake & Output 08/18/21 08/19/21 08/19/21 18:59 06:59 18:59 Intake Total 1120 884 765 Output Total 595 471 470 Balance 525 413 295 Weight 63.5 kg 60.3 kg Intake: IV 50 110 60 10cc/hr 110 60 Dextrose 5% in Water 1, 50 000 ml @ 20 mls/hr IV . Q24H [facility] Rx#:[id number] Intake, IV Titration 400 300 Amount Piperacillin-Tazobactam 3 200 100 .375 gm In Sodium Chloride 0.9% 100 ml @ 25 mls/hr IVPB Q8HR [facility] Rx# :[id number] Potassium Chloride 10 meq 200 In Water For Injection 1 100ml.bag @ 100 mls/hr IVPB Q1H [facility] Rx#: [id number] Potassium Chloride 10 meq 200 In Water For Injection 1 100ml.bag @ 100 mls/hr IVPB Q1HR [facility] Rx#: [id number] Tube Feeding 550 684 285 Other 120 90 120 Output: Urine 595 470 470 Stool 1 Other: Voiding Method Indwelling Catheter Indwelling Catheter Indwelling Catheter # Bowel Movements 1 - Exam The patient is poorly responsive more unresponsive. Respirations are getting a bit sonorous. 6 L nasal cannula noted. HEENT examination is grossly unremarkable. Neck supple. Full range of motion. No adenopathy thyromegaly or neck vein distention. Cardiovascular examination reveals regular rhythm rate. S1-S2 normal. No S3 or S4. No discernible murmur noted. Heart rate is 71 bpm. Heart sounds are distant. Lungs reveal coarse bilateral rhonchi. There are noted both on inspiration and expiration. No wheezes or crackles. Breath sounds are equal bilaterally. Abdomen is soft, without masses. PEG tube is noted. Extremities are intact. No cyanosis or clubbing. Mild edema noted. Skin is without rash or lesion. Neurologic examination reveals a mostly unresponsive male, with an unchanging neurologic examination at this time. - Labs CBC & Chem 7: 08/19/21 04:56 08/19/21 04:56 Labs: Abnormal Lab Results - Last 24 Hours (Table) 08/18/21 08/18/21 08/18/21 Range/Units 12:50 14:29 15:02 WBC (3.8-10.6) k/uL RBC (4.30-5.90) m/uL Hgb (13.0-17.5) gm/dL Hct (39.0-53.0) % RDW (11.5-15.5) % Neutrophils # (1.3-7.7) k/uL Lymphocytes # (1.0-4.8) k/uL Sodium 130 L (137-145) mmol/L BUN 26 H (9-20) mg/dL Creatinine 0.63 L (0.66-1.25) mg/dL Glucose 240 H (74-99) mg/dL POC Glucose (mg/dL) 300 H 301 H (75-99) mg/dL Calcium 7.7 L (8.4-10.2) mg/dL 08/18/21 08/18/21 08/19/21 Range/Units 17:32 20:51 04:21 WBC (3.8-10.6) k/uL RBC (4.30-5.90) m/uL Hgb (13.0-17.5) gm/dL Hct (39.0-53.0) % RDW (11.5-15.5) % Neutrophils # (1.3-7.7) k/uL Lymphocytes # (1.0-4.8) k/uL Sodium (137-145) mmol/L BUN (9-20) mg/dL Creatinine (0.66-1.25) mg/dL Glucose (74-99) mg/dL POC Glucose (mg/dL) 363 H 315 H 195 H (75-99) mg/dL Calcium (8.4-10.2) mg/dL 08/19/21 08/19/21 08/19/21 Range/Units 04:56 04:56 06:20 WBC 16.3 H (3.8-10.6) k/uL RBC 3.97 L (4.30-5.90) m/uL Hgb 11.2 L (13.0-17.5) gm/dL Hct 34.2 L (39.0-53.0) % RDW 15.6 H (11.5-15.5) % Neutrophils # 14.3 H (1.3-7.7) k/uL Lymphocytes # 0.8 L (1.0-4.8) k/uL Sodium 132 L (137-145) mmol/L BUN 34 H (9-20) mg/dL Creatinine (0.66-1.25) mg/dL Glucose 177 H (74-99) mg/dL POC Glucose (mg/dL) 186 H (75-99) mg/dL Calcium 7.9 L (8.4-10.2) mg/dL 08/19/21 08/19/21 Range/Units 10:12 12:05 WBC (3.8-10.6) k/uL RBC (4.30-5.90) m/uL Hgb (13.0-17.5) gm/dL Hct (39.0-53.0) % RDW (11.5-15.5) % Neutrophils # (1.3-7.7) k/uL Lymphocytes # (1.0-4.8) k/uL Sodium (137-145) mmol/L BUN (9-20) mg/dL Creatinine (0.66-1.25) mg/dL Glucose (74-99) mg/dL POC Glucose (mg/dL) 133 H 169 H (75-99) mg/dL Calcium (8.4-10.2) mg/dL Assessment and Plan Assessment: #1. Acute hypoxic respiratory failure secondary to COVID-19 pneumonia, and aspiration pneumonia patient was on BiPAP support. On 08/14/2021 patient had to be transferred back to the intensive care unit for worsening hypoxia and placed on BiPAP support with pressures of 16 and 10 and FiO2 of 100%. #2. Suspected aspiration, dysphagia, status post PEG tube placement on 08/17/2021. 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 In addition, a moderate to large right frontoparietal acute infarct was discovered on the computed tomography scan done on August 18. #4. Left-sided weakness related to recent history of embolic CVA during this admission. #5. Chronic atrial fibrillation, currently in sinus mechanism, patient has been on Eliquis. #6. Elevated inflammatory markers secondary to COVID-19 pneumonia, and they are currently improving. #7. Type 2 diabetes mellitus. #8. Dyslipidemia. #9. Worsening leukocytosis with negative procalcitonin level, we'll repeat a pro-calcitonin level. #10. Overall general medical debility from COVID-19 pneumonia, and prolonged hospitalization. #11. Episodes of hypoglycemia, Levemir has been discontinued, D5W was started. #12. Hyponatremia, to diuresis, and D5W infusion. Sodium 123 this morning on 08/18/2021. D5W will be discontinued. Plan: Plan dated 08/19/2021. Currently, the patient's neurologic examination has not changed. The patient was discovered to have a new moderate to large right frontoparietal acute or subacute infarct. PEG tube is still in place. He is receiving tube feedings at goal. He is on 6 L nasal cannula. He is getting saline at 10 mL an hour. The patient is a DO NOT INTUBATE patient. I think it would be very appropriate to get palliative care or hospice involved. The has been very unreasonable and my opinion. Nonetheless, we continue to agree to her wishes. Time with Patient: Greater than 30
--- NOTE | 2021-08-19 12:56 | PN ---
PROGRESS NOTE FOLLOW-UP NOTE: This 75-year-old gentleman was admitted to hospital with COVID pneumonia and has had paroxysmal atrial fibrillation. He had a CVA and recurrent episodes of atrial fibrillation. He remains in sinus rhythm on Eliquis and metoprolol, which we are going to continue. MMFREDIL / IJN: [id number] /
--- NOTE | 2021-08-19 14:02 | P.PN ---
Subjective Progress Note Date: 08/19/21 CHIEF COMPLAINT: Covid pneumonia HISTORY OF PRESENT ILLNESS: The patient is a 75-year-old male admitted with pneumonia due to Covid. Patient is status post gastrostomy tube placement 08/17/2021. He has been started on tube feeds. He has new finding of acute brain infarct. REVIEW OF ORGAN SYSTEMS: No fevers or chills. Continued minimal response. PHYSICAL EXAM: VITAL SIGNS: Stable GENERAL: Well-developed pleasant in no acute distress. HEENT: No scleral icterus. Moist buccal mucosa. CHEST: Equal bilateral excursions. CARDIOVASCULAR: 2+ pulses ABDOMEN: Gastrostomy tube site clean dry and intact. MUSCULOSKELETAL: No clubbing, cyanosis. NEURO: Minimal response. SKIN: Well perfused. PSYCH: Minimal response LABS: Reviewed. Hemoglobin up from 10.4-11.2 with anemia. WBC 16.2 elevated for leukocytosis. ASSESSMENT: 1. Covid pneumonia 2. Inadequate oral intake with protein malnutrition 3. Status post gastrostomy tube placement 4. Anticoagulation 5. New onset atrial fibrillation 6. Acute brain infarct PLAN: 1. With finding of infarct in presence of current co-morbities, prognosis is guarded. 3. Code STATUS being addressed per critical care team Objective - Vital Signs Vital signs: Vital Signs Temp 98.8 F 08/19/21 08:00 Pulse 71 08/19/21 10:00 Resp 20 08/19/21 10:00 BP 124/60 08/19/21 10:00 Pulse Ox 92 L 08/19/21 10:00 Intake & Output 08/18/21 08/19/21 08/19/21 18:59 06:59 18:59 Intake Total 1120 884 601 Output Total 595 471 185 Balance 525 413 416 Weight 63.5 kg 60.3 kg Intake: IV 50 110 40 10cc/hr 110 40 Dextrose 5% in Water 1, 50 000 ml @ 20 mls/hr IV . Q24H [facility] Rx#:[id number] Intake, IV Titration 400 300 Amount Piperacillin-Tazobactam 3 200 100 .375 gm In Sodium Chloride 0.9% 100 ml @ 25 mls/hr IVPB Q8HR [facility] Rx# :[id number] Potassium Chloride 10 meq 200 In Water For Injection 1 100ml.bag @ 100 mls/hr IVPB Q1H [facility] Rx#: [id number] Potassium Chloride 10 meq 200 In Water For Injection 1 100ml.bag @ 100 mls/hr IVPB Q1HR [facility] Rx#: [id number] Tube Feeding 550 684 171 Other 120 90 90 Output: Urine 595 470 185 Stool 1 Other: Voiding Method Indwelling Catheter Indwelling Catheter Indwelling Catheter # Bowel Movements 1 - Labs CBC & Chem 7: 08/19/21 04:56 08/19/21 04:56 Labs: Abnormal Lab Results - Last 24 Hours (Table) 08/18/21 08/18/21 08/18/21 Range/Units 12:50 14:29 15:02 WBC (3.8-10.6) k/uL RBC (4.30-5.90) m/uL Hgb (13.0-17.5) gm/dL Hct (39.0-53.0) % RDW (11.5-15.5) % Neutrophils # (1.3-7.7) k/uL Lymphocytes # (1.0-4.8) k/uL Sodium 130 L (137-145) mmol/L BUN 26 H (9-20) mg/dL Creatinine 0.63 L (0.66-1.25) mg/dL Glucose 240 H (74-99) mg/dL POC Glucose (mg/dL) 300 H 301 H (75-99) mg/dL Calcium 7.7 L (8.4-10.2) mg/dL 08/18/21 08/18/21 08/19/21 Range/Units 17:32 20:51 04:21 WBC (3.8-10.6) k/uL RBC (4.30-5.90) m/uL Hgb (13.0-17.5) gm/dL Hct (39.0-53.0) % RDW (11.5-15.5) % Neutrophils # (1.3-7.7) k/uL Lymphocytes # (1.0-4.8) k/uL Sodium (137-145) mmol/L BUN (9-20) mg/dL Creatinine (0.66-1.25) mg/dL Glucose (74-99) mg/dL POC Glucose (mg/dL) 363 H 315 H 195 H (75-99) mg/dL Calcium (8.4-10.2) mg/dL 08/19/21 08/19/21 08/19/21 Range/Units 04:56 04:56 06:20 WBC 16.3 H (3.8-10.6) k/uL RBC 3.97 L (4.30-5.90) m/uL Hgb 11.2 L (13.0-17.5) gm/dL Hct 34.2 L (39.0-53.0) % RDW 15.6 H (11.5-15.5) % Neutrophils # 14.3 H (1.3-7.7) k/uL Lymphocytes # 0.8 L (1.0-4.8) k/uL Sodium 132 L (137-145) mmol/L BUN 34 H (9-20) mg/dL Creatinine (0.66-1.25) mg/dL Glucose 177 H (74-99) mg/dL POC Glucose (mg/dL) 186 H (75-99) mg/dL Calcium 7.9 L (8.4-10.2) mg/dL 08/19/21 Range/Units 10:12 WBC (3.8-10.6) k/uL RBC (4.30-5.90) m/uL Hgb (13.0-17.5) gm/dL Hct (39.0-53.0) % RDW (11.5-15.5) % Neutrophils # (1.3-7.7) k/uL Lymphocytes # (1.0-4.8) k/uL Sodium (137-145) mmol/L BUN (9-20) mg/dL Creatinine (0.66-1.25) mg/dL Glucose (74-99) mg/dL POC Glucose (mg/dL) 133 H (75-99) mg/dL Calcium (8.4-10.2) mg/dL Assessment and Plan (1) On anticoagulant therapy Current Visit: Yes Status: Acute Code(s): Z79.01 - INTERMEDIATE (CURRENT) USE OF ANTICOAGULANTS SNOMED Code(s): 464718571 (2) COVID Current Visit: Yes Status: Acute Code(s): U07.1 - COVID-19 SNOMED Code(s): 172085998 (3) New onset a-fib Current Visit: Yes Status: Acute Code(s): I48.91 - UNSPECIFIED ATRIAL FIBRILLATION SNOMED Code(s): 38225123 (4) Acute brainstem infarction Current Visit: Yes Status: Acute Code(s): I63.89 - OTHER CEREBRAL INFARCTION SNOMED Code(s): 45854846
[2021-08-19 14:26] LABS: Glucose,Whole Blood 188 mg/dL (75-99)
--- NOTE | 2021-08-19 17:41 | PN ---
PROGRESS NOTE DATE OF SERVICE: 08/19/2021 REASON FOR FOLLOWUP: Pneumonia. INTERVAL HISTORY: The patient is afebrile. The patient is currently breathing comfortably on nasal cannula oxygen. The patient is hemodynamically stable, not on pressor support. The patient remains to be lethargic. No vomiting, diarrhea or any other changes reported by nursing staff. PHYSICAL EXAMINATION: Blood pressure 124/60 with a pulse of 71, temperature 98.8. He is 92% on 6 L nasal cannula. General description is an elderly male lying in bed in no distress. Respiratory system unlabored breathing, decreased breath sounds at bases. No wheeze. Heart S1, S2. Regular rate and rhythm. Abdomen soft, no tenderness. LABS: Hemoglobin 11.4, white count 16.3, creatinine 0.81. DIAGNOSTIC IMPRESSION AND PLAN: Patient with pneumonia with initial diagnosis of Covid 19 now with concern for possible aspiration component. Patient is covered with Zosyn. The patient white count is trending down has required nasal oxygen to continue monitor clinical course closely. Continue supportive care. MMODL / IJN: [id number] /
[2021-08-19 17:56] LABS: Glucose,Whole Blood 241 mg/dL (75-99)
--- NOTE | 2021-08-19 21:03 | PN ---
PROGRESS NOTE DATE OF SERVICE: 08/19/2021 This 75-year-old gentleman who was admitted with significant COVID-19 pneumonia also had acute hypoxic respiratory failure. The patient also had right frontoparietal acute infarct recently noted. The patient continues to be nonresponsive. Patient is also receiving some BiPAP. The chest x-ray showed no interval changes. Neurology and multiple consultants are following the patient closely. Past medical history reviewed. Review of systems could not be taken; the patient is stuporous. CURRENT MEDICATIONS: Reviewed. They include Tylenol, Eliquis, vitamin C, Lipitor, Tums, vitamin D3, Decadron, Dilaudid, Levemir. PHYSICAL EXAMINATION: The pulse is 73, blood pressure 124/58, respiration 22, temperature 98.6, pulse ox 96% on 6 L. HEENT: Conjunctivae normal. NECK: No jugular venous distention. CARDIOVASCULAR: S1, S2 muffled. RESPIRATION: Breath sounds diminished at the bases. A few scattered rhonchi and crackles. ABDOMEN: Soft, non-tender. LEGS: No edema. No swelling. NERVOUS SYSTEM: No focal deficit. LABS: WBC 16.3, hemoglobin 11.6, sodium 132. ASSESSMENT: 1. Acute COVID-19 bilateral interstitial pneumonia with acute hypoxic respiratory failure secondary to COVID-19 pneumonia, present on admission. 2. Right frontoparietal acute infarct with MCA distribution causing acute on chronic toxic encephalopathy. 3. Dysphagia with high risk of aspiration. 4. Possible aspiration pneumonia. 5. Status post PEG tube placement. 6. Atrial fibrillation with rapid ventricular rate, new onset. 7. D-dimer with no evidence of pulmonary embolism on CTA. 8. Mild protein-calorie malnutrition. 9. Change in mental status. 10.Bilateral hemispheric stroke with cerebellar and occipital area parietal lobe on the MRI. 11.Diabetes mellitus, type 2. 12.Hypertension. 13.Hyperlipidemia. 14.Deep vein thrombosis prophylaxis. RECOMMENDATIONS AND DISCUSSION: I recommend to continue current medications, continue with symptomatic treatment. The prognosis is extremely guarded because of the multiple complex medical issues. Continue with tube feeds. The patient is currently NO CODE NO VENT at this time. Palliative care has been suggested by Dr. Ochoa. Will continue to monitor. Further recommendations to follow. MMODL / IJN: [id number] / [facility]
[2021-08-19 22:34] LABS: Glucose,Whole Blood 220 mg/dL (75-99)
[2021-08-19] MEDS: INSULIN DETEMIR (LEVEMIR) 100 UNIT/ML SYR SQ SCH (22:41)
[2021-08-19] MEDS: ATORVASTATIN 80 MG TAB PEG/G-TUBE SCH (22:41)
[2021-08-19] MEDS: ACETAMINOPHEN TAB 325 MG TAB PO PRN (22:45)
[2021-08-20] MEDS: PIPERACILLIN-TAZOBACTAM 3.375 GM in SODIUM CHLORIDE 0.9% 100 ML IVPB SCH ×3 (01:09→16:09)
[2021-08-20 01:37] LABS: Glucose,Whole Blood 163 mg/dL (75-99)
[2021-08-20] MEDS: INSULIN ASPART (NovoLOG) 100 UNIT/ML VIAL SQ SCH ×6 (02:19→22:23)
[2021-08-20 05:45] LABS: Glucose,Whole Blood 219 mg/dL (75-99)
[2021-08-20] MEDS: ACETAMINOPHEN TAB 325 MG TAB PO PRN (06:32)
[2021-08-20] MEDS: levETIRAcetam 500 MG TAB PEG/G-TUBE SCH (07:22)
[2021-08-20] MEDS: DEXAMETHASONE SOD PHOSPHATE 10 MG/ML 1 ML VIAL IV SCH (08:39)
[2021-08-20] MEDS: CHOLECALCIFEROL 10 MCG (400 IU) TABLET PO SCH (08:39)
[2021-08-20] MEDS: APIXABAN 5 MG TAB PO SCH ×2 (08:39→20:45)
[2021-08-20] MEDS: ASPIRIN 81 MG PEG/G-TUBE SCH (08:39)
[2021-08-20] MEDS: PANTOPRAZOLE 40 MG/10 ML VIAL IVP SCH ×2 (08:40→20:44)
[2021-08-20] MEDS: ZINC SULFATE 220 MG CAP PO SCH (08:40)
[2021-08-20] MEDS: METOPROLOL TARTRATE 50 MG TAB PO SCH ×2 (08:40→20:44)
[2021-08-20] MEDS: levETIRAcetam ORAL SOLN 500 MG/5 ML CUP PEG/G-TUBE SCH ×2 (08:40→20:44)
[2021-08-20] MEDS: ASCORBIC ACID 500 MG TAB PO SCH (08:43)
--- NOTE | 2021-08-20 09:34 | P.PN ---
Subjective Progress Note Date: 08/20/21 The patient is seen at bedside and per the nurse he continues to be altered and not interacting. Objective - Vital Signs Vital signs: Vital Signs Temp 99.8 F H 08/20/21 06:50 Pulse 81 08/20/21 06:50 Resp 17 08/20/21 06:50 BP 132/47 08/20/21 06:50 Pulse Ox 92 L 08/20/21 06:50 Intake & Output 08/19/21 08/20/21 08/20/21 18:59 06:59 18:59 Intake Total 1364 181 Output Total 975 91 Balance 389 90 Weight 62 kg Intake: IV 130 10 10cc/hr 130 10 Intake, IV Titration 400 Amount Piperacillin-Tazobactam 3 200 .375 gm In Sodium Chloride 0.9% 100 ml @ 25 mls/hr IVPB Q8HR [facility] Rx# :[id number] Potassium Chloride 10 meq 200 In Water For Injection 1 100ml.bag @ 100 mls/hr IVPB Q1H [facility] Rx#: [id number] Tube Feeding 684 171 Other 150 Output: Urine 975 90 Stool 1 Other: Voiding Method Indwelling Catheter Indwelling Catheter - Exam GENERAL: The patient is lying in bed and seems in slight respiratory distress. NEUROLOGICAL: Higher mental function: The patient is extremely drowsy and not verbally responsive. He followed one command (wiggling his toes over the right foot). Cranial nerves: He would briefly opens his eyes to verbal stimuli. The pupils are round, right is 3mm and left is 2mm and reactive to light. He has right gaze preference and then would look to center. Could not assess visual distur bance or EOM because of his condition. He had mild left facial droop. Could not assess rest of cranial nerves because of his condition. Motor: Gait is deferred. The strength is he is he is withdrawing over the right upper and lower extremity to painful stimuli but not left. He spontaneously wig gled his toes over the right foot to command. Could not assess individual muscles because of his condition. Decrease tone throughout. Cerebellum: Could not assess. Sensation: Could not assess light touch but he has is withdrawing to painful stimuli on right side and grimaces on left. Reflexes (right/left): 1+ throughout. Plantars are mute over the right and upgoing on the left. WORK-UP: * Patient had multiple CT's. * Carotid duplex is reported as there is antegrade flow in the vertebral arteries. Images and measurements suggest 35% stenosis in both internal carotid arteries. * MRI of the brain report is reported as diffuse scattered area of restricted diffusion, correlate for embolic phenomena. In the body they reported it is reported that the patient has diffusion weighted image demonstrated restricted effusion and inferior cerebellar hemispheres bilaterally, scattered area of restricted diffusion in the cerebellum, occipital lobes are noted bilaterally as well as bilateral parietal. Encephalomalacia was noted in the region of the thalamus over the right likely due to chronic vascular insult. Scattered area of hyperdensity present in that. Colossal, periventricular and subcortical white matter on inversion recovery T2-weighted images are currently related to chronic small vessel ischemic changes also noted. I personally reviewed that MRI the brain and I do agree patient has bilateral hemispheric stroke over the cerebellar occipital region parietal, frontal is seems embolic in nature. * CT angiography of the head and neck was reported as atheromatous plaquing present bilaterally slightly greater on the left. No flow limiting stenosis bilateral carotid bifurcation. Finding are stable from 12/04/[address] [facility]. * Most recent CT of the head is on 08/14/2021 it's reported as cerebral atrophy. No acute intracranial abnormality. Old right thalamic lacunar infarct. No change. * CT head 08/18/2021: It is reported as moderate to large size involving 6X4cm right frontoprarietal acute infarct in the MCA distribution now acute infarct in the MCA distribution now identified. I reviewed images felt the MCA distribution is subacute * 2-D echo was reported as left ventricle size is normal. Moderate consider Limbitrol hypertrophy. Ejection fraction of 55-60%. Left ventricle filling pressure cannot be at estimated due to 8 atrial fibrillation. * Routine EEG on 08/02/2021 is abnormal. The back or slowing suggestive of moderate to severe encephalopathy. There are no focal slowing, epileptiform discharges or seizure in the EEG. Clinical correlation is recommended. * Repeat routine EEG on 08/18/2021 as abnormal. The back was SUGGESTIVE of moderate to severe encephalopathy. There are no epileptiform discharges or seizure on the EEG. The current EEG is unchanged to previous EEG on 08/02/2021. * Lipid panel is triglyceride of 104, cholesterol of 96, LDL 28 and HDL of 46. * AST of 115 and ALT of 77 * TSH is 0.112 and the free T4 is 4.06 * Hemoglobin A1c is 9.2 * Vitamin B12 is 2006 177 which is above normal but it's unremarkable. * Serum folate level is 5.70 and the normal supposed to be between 4.4-31 - Labs CBC & Chem 7: 08/19/21 04:56 08/19/21 04:56 Labs: Abnormal Lab Results - Last 24 Hours (Table) 08/19/21 08/19/21 08/19/21 Range/Units 10:12 12:05 14:24 POC Glucose (mg/dL) 133 H 169 H 188 H (75-99) mg/dL 08/19/21 08/19/21 08/20/21 Range/Units 17:55 22:32 01:36 POC Glucose (mg/dL) 241 H 220 H 163 H (75-99) mg/dL 08/20/21 Range/Units 05:42 POC Glucose (mg/dL) 219 H (75-99) mg/dL Assessment and Plan Assessment: * Multiple strokes during this admission (Subacute Right MCA stroke which is new compared to his previous CT 08/14/2021 and bilateral hemispheric stroke on 08/01/2021). Strokes due to embolic in natures (seems cardiembolic). * Right MCA stroke seems subacute with left sided weakness. No IV tpa since on anticoagulation, outside window and has previous recent stroke (It is documented he had left sided weakness around 08/13/2021 so would assume his stroke happened around that time and the CT head on 08/14/2021 was too acute to be seen) * Bilateral hemisphere stroke during this admission (seen on 08/01/2021). Seems likely due cardioembolic in nature of atrial fibrillation * Worsening of altered mental status due to multifactorial: Predomaintely stroke, component of metabolic encephalopathy and component of hypoxic encephalopathy from COVID-19 pneumonia. 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 During this hospital stay had hypoglycemia (last on 08/18/2021) * COVID-19 related pneumonia with secondary hypoxic respiratory failure * Dysphagia due to stroke and component of aspiration pneumonia status post PEG tube on 08/17/2021 due to his stroke * Hyponatremia due to diuresis--improving (most current 132) * History of old stroke 11/2019 and TIA 01/2020 without residual weakness or focality * Atrial fibrillation currently on Eliquis * Diabetes mellitus that is not controlled (recent HbA1c is 9.2) * Hyperlipidemia * History of Hypertension Plan: * On Eliquis 5 mg 1 tablet twice since has history of atrial fibrillation and today added ASA 81mg in addition (because of continued stroke). Continue Lipitor 80 mg daily. * PT, OT and ENGINEERING AGENT are consulted * Continue cardiac monitoring * Continue neuro checks * Cardiology is on board. * Please avoid any hypoglycemia and recommend euglycemia. We'll defer the management to the primary as well as the ICU team. * Defer the electrolyte imbalance to the primary. * We'll defer the rest of the medical management to the primary as well as a ICU team. * Recommend consideration of rehab and if possible inpatient. * Upon discharge, the patient needs to follow-up with his neurology team with 1- 2 weeks as outpatient ([facility]). DVT Prophylaxis: On eliquis. CONDITION: Seem critical and I feel at this point his quality of life appear poor. I discussed the finding with the patient's via phone and she stated she does not want to pursue with [facility] and or any further neurological imaging or investigation at this time and would like just continue medical management. She does not want to make him comfort care. Consulted hospice team. The plan is discussed with patient's (via phone) and his nurse. Dr. Tony will take over neurology service tomorrow AM. [facility] Ochoa M.D. Neuro-hospitalist Time with Patient: Less than 30
[2021-08-20 10:06] LABS: Glucose,Whole Blood 188 mg/dL (75-99)
--- NOTE | 2021-08-20 12:41 | PN ---
PROGRESS NOTE FOLLOW-UP NOTE: This is a 75-year-old gentleman with COVID infection, CVA. Patient is unresponsive and has PEG tube in place, currently on the med/surg floor. His overall situation is unchanged. On exam, heart rate is 73 beats per minute. Blood pressure is 134/50, respiratory rate is 18. Chest exam reveals diminished air entry with occasional rhonchi. Heart exam reveals first and second heart sounds, rhythm. Examination of extremities did not reveal any edema. The patient is on Eliquis 5 b.i.d., Lipitor, aspirin, Lopressor. ASSESSMENT: 1. Paroxysmal atrial fibrillation. 2. COVID pneumonia. 3. Cerebrovascular accident. 4. Complex and multiple COVID-related complications. PLAN: Continue the patient on current medications and we will see the patient on a p.r.n. basis. ROMIE / NEFTALY: [id number] /
--- NOTE | 2021-08-20 12:49 | P.PN ---
Subjective Progress Note Date: 08/20/21 CHIEF COMPLAINT: Covid pneumonia HISTORY OF PRESENT ILLNESS: The patient is a 75-year-old male admitted with pneumonia due to Covid. Patient is status post gastrostomy tube placement 08/17/2021. He has been started on tube feeds. Patient is resting comfortably. He has had no purposeful movement. He has been transferred from the ICU to the floor. REVIEW OF ORGAN SYSTEMS: No fevers or chills. No new cardiac event with exception of atrial fibrillation. PHYSICAL EXAM: VITAL SIGNS: Stable GENERAL: Well-developed pleasant in no acute distress. HEENT: No scleral icterus. Moist buccal mucosa. CHEST: Equal bilateral excursions. CARDIOVASCULAR: 2+ pulses ABDOMEN: Gastrostomy tube intact. MUSCULOSKELETAL: No clubbing, cyanosis. NEURO: Minimal response. SKIN: Well perfused. PSYCH: Minimal response LABS: Reviewed. Hemoglobin up from 10.4-11.2 with anemia. WBC 16.2 elevated for leukocytosis. STUDIES: CT of the brain independent reviewed demonstrating a large 40% right parietal infarction of acute ischemic changes. This is my independent interpretation. REPORT: CT of the brain report demonstrates large right acute infarct of 6.4 cm involving the middle cerebral artery. ASSESSMENT: 1. Covid pneumonia 2. Inadequate oral intake with protein malnutrition 3. Status post gastrostomy tube placement 4. Anticoagulation 5. New onset atrial fibrillation 6. Acute brain infarct PLAN: 1. Clinically, prognosis is poor. 2. Agree patient may benefit from hospice assessment. Objective - Vital Signs Vital signs: Vital Signs Temp 99.1 F 08/20/21 09:43 Pulse 73 08/20/21 09:43 Resp 18 08/20/21 09:43 BP 135/51 08/20/21 09:43 Pulse Ox 96 08/20/21 09:43 Intake & Output 08/19/21 08/20/21 08/20/21 18:59 06:59 18:59 Intake Total 1364 181 57 Output Total 975 91 Balance 389 90 57 Weight 62 kg Intake: IV 130 10 10cc/hr 130 10 Intake, IV Titration 400 Amount Piperacillin-Tazobactam 3 200 .375 gm In Sodium Chloride 0.9% 100 ml @ 25 mls/hr IVPB Q8HR [facility] Rx# :[id number] Potassium Chloride 10 meq 200 In Water For Injection 1 100ml.bag @ 100 mls/hr IVPB Q1H [facility] Rx#: [id number] Tube Feeding 684 171 57 Other 150 Output: Urine 975 90 Stool 1 Other: Voiding Method Indwelling Catheter Indwelling Catheter Indwelling Catheter - Labs CBC & Chem 7: 08/19/21 04:56 08/19/21 04:56 Labs: Abnormal Lab Results - Last 24 Hours (Table) 08/19/21 08/19/21 08/19/21 Range/Units 14:24 17:55 22:32 POC Glucose (mg/dL) 188 H 241 H 220 H (75-99) mg/dL 08/20/21 08/20/21 08/20/21 Range/Units 01:36 05:42 10:04 POC Glucose (mg/dL) 163 H 219 H 188 H (75-99) mg/dL Assessment and Plan (1) On anticoagulant therapy Current Visit: Yes Status: Acute Code(s): Z79.01 - SKILLED NURSING (CURRENT) USE OF ANTICOAGULANTS SNOMED Code(s): 493205233 (2) COVID Current Visit: Yes Status: Acute Code(s): U07.1 - COVID-19 SNOMED Code(s): 037605060 (3) New onset a-fib Current Visit: Yes Status: Acute Code(s): I48.91 - UNSPECIFIED ATRIAL FIBRILLATION SNOMED Code(s): 47177635 (4) Acute brainstem infarction Current Visit: Yes Status: Acute Code(s): I63.89 - OTHER CEREBRAL INFARCTION SNOMED Code(s): 82732497
[2021-08-20 13:53] LABS: Glucose,Whole Blood 232 mg/dL (75-99)
--- NOTE | 2021-08-20 14:59 | P.PN ---
Subjective Progress Note Date: 08/20/21 Principal diagnosis: Cerebrovascular accident. On 08/13/2021 patient seen in follow-up on medical surgical floor. He is lethargic on today's exam, but does arouse to voice, he answers simple questions, he follows simple command, appears very weak, but breathing comfortably, he is currently on 5 L of oxygen with pulse ox of 92-97%, his been afebrile, doesn't appear to be in any acute distress, however his head is laying down on his shoulder, does not seem to be able to hold up his head erect. He knew the place and is oriented to person, but he thinks the president is Shlomo, and after a couple of hints he did say that the president is Etienne. His NG tube remains in place, and he has tube feedings infusing, he has been tolerating tube feedings well, she remains on Decadron 6 mg daily, he is on Eliquis 5 mg twice daily, he continues on IV fluids with 0.9 at 75. His chest x-ray from yesterday shows bilateral groundglass opacities within the lungs, NG tube is in appro priate position, no evident pneumothorax or pleural effusion, and there is a left-sided PICC line in place. Today's labs have been reviewed, his white blood cell count is improving and is down to 18.6, hemoglobin is 11.6, his sodium is improving and is up to 133, the rest of electrolytes were within normal limits, BUN is 21 creatinine 0.62, his ALT is up slightly at 53, AST was 51, alkaline phosphatase is relatively stable at 191 up slightly from 182, and his last pro- calcitonin that was done on 08/10/2021 was negative at 0.05. Patient has had no fever or chills. Patient has been nothing by mouth in view of his hypoxia, BiPAP dependence, recent stroke this admission, and overall generalized weakness and high aspiration risk. We'll obtain speech evaluation On 08/14/2021 patient seen in follow-up on medical surgical floor, he is more lethargic on today's exam, he requires repeated for most stipulation, and tactile stimulation to open his eyes, does not appear to be in any acute dis tress, rapid response team was called last night, for worsening hypoxia, tachypnea, and his heart rate was in the 130s, A. fib with RVR, his blood pressure was elevated at greater than 190 systolic. Patient was noted to have oxygen saturations in the low 80s on the 100% non-rebreather. He did have a temp of 101.5F, chest x-ray was repeated showing pulmonary edema and pleural fluid is not significantly different from his last exam. Patient was placed on Airvo on which she remains, initially at 60 L an FiO2 of 93%, his pulse ox did improve. Subsequently his FiO2 was dropped down to 80%, his pulse ox is still 96-99%. Today's labs show increased white blood cell, which is currently at 33.2, hemoglobin of 12.7, d-dimer is 14.04, sodium is 131, potassium is 4.0, chloride is 95, BUN is 25 creatinine 0.61. Remains on Decadron 6 mg daily, she was given a dose of IV push Lopressor, he continues on Lopressor 100 mg by mouth twice daily. His mentation remains lethargic, and patient is an increased risk for aspiration. He was supposed to be seen by speech therapy today and have a swallow evaluation to evaluate for potential ability to eat by mouth. It was suspected that he will need a PEG tube. He still has the NG tube in his nose, and receiving tube feedings with vital AF at rate of 57. On 08/15/2021 patient seen in follow-up in intensive care unit where she was transferred last night. Patient continued to desaturate on the floor, and required to be placed on BiPAP support, currently with pressures of 16 and 10 and FiO2 of 90%. Remains extremely lethargic. Afebrile, and not requiring any vasopressor support, he is on 0.9 normal significantly to 20 ML per hour, he has not been able to complete swallow evaluation related to his extremely poor mental status, which seems to be worsening. Repeat brain CT yesterday showed a cerebral bilaterally, no acute intracranial abnormality, and old right thalamic lacunar infarct. No change from previous CT of the brain. Yesterday we empirically started the patient on Zosyn for possibility of aspiration related pneumonitis. This white blood cell count is slightly improved today, however still elevated at 29.8, hemoglobin is 10.4, d-dimer is down to 3.8, sodium is 134, potassium 3.7, chloride is 100, B1 is 35, creatinine 0.71, LDH is down to 1462, improving, CRP is up to 19.9. Patient continues on Eliquis, currently r emains in sinus mechanism with a controlled rate, yesterday during episode of worsening dyspnea and hypoxia, he was requiring Cardizem infusion for rate control, Cardizem drip is currently discontinued. Addition patient continues on dexamethasone 6 mg daily, COVID vitamins. Today's chest x-ray shows bilateral peripheral increased opacities consistent with COVID-19 infection. No significant change from one day earlier, patient's spouse was updated on his condition, and the decision was made not to proceed with intubation and placement on mechanical ventilator should his condition continued to deteriorate. On 08/17/2021 patient seen in follow-up in the intensive care unit. he still very lethargic, he barely opens his eyes to repeated verbal and tactile stimulation, he is currently on BiPAP support with pressures of 16/10, and FiO2 of 40%, his pulse ox is 94%. NG tube remains in place for tube feedings that are currently on hold, general surgery has been consulted for placement of PEG tube which is scheduled for today. Patient is on 0.9 normal sinus rate is 75 ML per hour, he remains on Zosyn for possibility of aspiration pneumonia. he remains on Decadron 6 mg once daily, he is on COVID vitamins. He is not requiring any vasopressor support. Level of consciousness and his mental status have remained abnormal, patient has been quite somnolent, she suspected to have abnormal swallowing, and aspiration pneumonia. Been afebrile, blood pressure is elevated with the systolic in the 160s to 170s, and diastolic in the 70s and 80s. He is currently in A. fib with RVR with a rate of 157. Patient has not had his morning medications yet, he is due for his Lopressor dose 100 mg per the PEG tube. Anticoagulation is on hold right now for PEG tube placement. Generally patient appears to be very swollen. Patient's weight is up by 0.4 kg in last 24 hours, and overall patient is at least 11 kg positive since admission. Urine output is in the order of 100-200 mL an hour. Patient does not appear to be in any acute distress, however he needs positive pressure ventilation intermittently and at bedtime. he could be placed on high flow nasal cannula intermittently. On today's evaluation on 08/18/2021 patient is seen in follow-up in the intensive care unit, he still quite lethargic, he is able to open his eyes repeated verbal stimulation. Very weak, he is on BiPAP support with pressures of 16/10 and FiO2 of 40%, with a pulse ox of 91%, yesterday he tolerated high fl ow nasal cannula, and by the end of the evening he was down to 4 L, and for the nighttime she was placed back on positive pressure ventilation via BiPAP. Patient had a PEG tube placed yesterday, at around 1:00, tube feedings have been on hold since yesterday, we anticipate starting tube feedings this morning. Overnight patient had episodes of hypoglycemia. And he received D5W at a rate of 50 ML per hour. In addition yesterday she received a dose of IV Lasix and he is -2.5 L net fluid balance over the last 24 hours. However his sodium is down to 123 from previously at 131 on yesterday's labs. Serum potassium is 3.4, chloride is 91, BUN is 21 creatinine 0.59, this morning's blood sugar recheck revealed a blood sugar of 348, capillary blood glucose was 100. Tube feedings remain on hold for now. White blood cell count is trending down and is down to 14.4, hemoglobin is 10.4, last pro calcitonin level from 08/14/2021 was 0.26. Patient is currently on Zosyn for empiric antibiotic coverage. Today's chest x- ray is pending. Patient is in sinus mechanism with a rate of 82, blood pressure is 131/60, he was just switched over to high flow nasal cannula at 15 L and his pulse ox is actually improved and is up to 99-100%. Left consciousness remains very lethargic, patient is trying to follow simple command, he is able to squeeze with his right hand, unable to squeeze with his left hand. Generally he is very weak. His cough is weak. Lung sounds reveal diffuse rhonchi throughout the lung [place]. Progress note dated 08/19/2021. The patient is again seen in the intensive care unit, room 261. Unfortunately, the patient was found to have a moderate to large right frontal parietal acute infarct. The patient does have a PEG tube in place. He is receiving vital 1.2 at 57 mL an hour, which is goal. White count 16.3, heme him a lump 0.2, hematocrit 34.2, platelet count 200,000. PT/INR are normal. Sodium 132, potassium 3.9, chlorides 99, CO2 29, anion gap 4, BUN 34, creatinine 0.81. Calcium is 7.9. The patient is still very poorly responsive. I did have a long discussion with the yesterday, who would like to continue supporting the patient, short of intubation and mechanical ventilation. The situation in my opinion is nearly futile given the recent development is seen on the most recent computed tomography scan. The patient's getting 6 L nasal cannula. He is getting saline at 10 mL an hour. Chest x-ray today shows diffuse bilateral infiltrates, which are unchanged. Progress note dated 08/20/2021. The patient is again seen in room 479. The patient was recently moved out of the intensive care unit. A follow-up computed tomography scan revealed a moderate to large right frontal parietal acute/subacute infarct. The patient does have a PEG tube in place. Apparently now, the family has decided to make the patient a hospice patient, and possibly comfort measures tomorrow. I think this is very appropriate. The patient remains unresponsive. He is on 4 L nasal cannula. Saturations are 96%. Temperature is 99.1, heart rate 73, respiratory rate 18, blood pressure 135/51. No recent labs to report on this patient. Objective - Vital Signs Vital signs: Vital Signs Temp 99.1 F 08/20/21 09:43 Pulse 73 08/20/21 09:43 Resp 18 08/20/21 09:43 BP 135/51 08/20/21 09:43 Pulse Ox 96 08/20/21 09:43 Intake & Output 08/19/21 08/20/21 08/20/21 18:59 06:59 18:59 Intake Total 1364 181 57 Output Total 975 91 600 Balance 389 90 -543 Weight 62 kg Intake: IV 130 10 10cc/hr 130 10 Intake, IV Titration 400 Amount Piperacillin-Tazobactam 3 200 .375 gm In Sodium Chloride 0.9% 100 ml @ 25 mls/hr IVPB Q8HR [facility] Rx# :[id number] Potassium Chloride 10 meq 200 In Water For Injection 1 100ml.bag @ 100 mls/hr IVPB Q1H [facility] Rx#: [id number] Tube Feeding 684 171 57 Other 150 Output: Urine 975 90 600 Stool 1 Other: Voiding Method Indwelling Catheter Indwelling Catheter Indwelling Catheter - Exam The patient is poorly responsive more unresponsive. Respirations are getting a bit sonorous. 4 L nasal cannula noted. HEENT examination is grossly unremarkable. Neck supple. Full range of motion. No adenopathy thyromegaly or neck vein distention. Cardiovascular examination reveals regular rhythm rate. S1-S2 normal. No S3 or S4. No discernible murmur noted. Heart rate is 73 bpm. Heart sounds are distant. Lungs reveal coarse bilateral rhonchi. There are noted both on inspiration and expiration. No wheezes or crackles. Breath sounds are equal bilaterally. Abdomen is soft, without masses. PEG tube is noted. Extremities are intact. No cyanosis or clubbing. Mild edema noted. Skin is without rash or lesion. Neurologic examination reveals a mostly unresponsive male, with an unchanging neurologic examination at this time. - Labs CBC & Chem 7: 08/19/21 04:56 08/19/21 04:56 Labs: Abnormal Lab Results - Last 24 Hours (Table) 08/19/21 08/19/21 08/20/21 Range/Units 17:55 22:32 01:36 POC Glucose (mg/dL) 241 H 220 H 163 H (75-99) mg/dL 08/20/21 08/20/21 08/20/21 Range/Units 05:42 10:04 13:50 POC Glucose (mg/dL) 219 H 188 H 232 H (75-99) mg/dL Assessment and Plan Assessment: #1. Acute hypoxic respiratory failure secondary to COVID-19 pneumonia, and aspiration pneumonia patient was on BiPAP support. On 08/14/2021 patient had to be transferred back to the intensive care unit for worsening hypoxia and placed on BiPAP support with pressures of 16 and 10 and FiO2 of 100%. #2. Suspected aspiration, dysphagia, status post PEG tube placement on 08/17/2021. 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 In addition, a moderate to large right frontoparietal acute infarct was discovered on the computed tomography scan done on August 18. #4. Left-sided weakness related to recent history of embolic CVA during this admission. #5. Chronic atrial fibrillation, currently in sinus mechanism, patient has been on Eliquis. #6. Elevated inflammatory markers secondary to COVID-19 pneumonia, and they are currently improving. #7. Type 2 diabetes mellitus. #8. Dyslipidemia. #9. Worsening leukocytosis with negative procalcitonin level, we'll repeat a pro-calcitonin level. #10. Overall general medical debility from COVID-19 pneumonia, and prolonged hospitalization. #11. Episodes of hypoglycemia, Levemir has been discontinued, D5W was started. #12. Hyponatremia, to diuresis, and D5W infusion. Sodium 123 this morning on 08/18/2021. D5W will be discontinued. Plan: Plan dated 08/19/2021. Currently, the patient's neurologic examination has not changed. The patient was discovered to have a new moderate to large right frontoparietal acute or subacute infarct. PEG tube is still in place. He is receiving tube feedings at goal. He is on 6 L nasal cannula. He is getting saline at 10 mL an hour. The patient is a DO NOT INTUBATE patient. I think it would be very appropriate to get palliative care or hospice involved. The has been very unreasonable and my opinion. Nonetheless, we continue to agree to her wishes. Plan dated 08/20/2021. The patient was found to have a large right frontoparietal CVA. The patient is still unresponsive or poorly responsive. He remains on 4 L nasal cannula. The patient is a DO NOT INTUBATE patient. Apparently the family has decided either on hospice or comfort care. This is very appropriate. No additional recommendations are made. Unnecessary medication should be discontinued. We will see the patient moving forward, only as needed. Time with Patient: Less than 30
--- NOTE | 2021-08-20 17:51 | PN ---
PROGRESS NOTE DATE OF SERVICE: 08/20/2021 This 75-year-old gentleman admitted with acute COVID-19 pneumonia as well as acute hypoxic respiratory failure is being closely monitored at this time. The patient also had features of acute stroke. The patient also had acute hypoxic respiratory failure. Patient had change in mental status. Hospice has been consulted. Past medical history reviewed. Review of systems could not be taken. CURRENT MEDICATIONS: Reviewed. They include Tylenol, Eliquis, vitamin C, aspirin, Lipitor. Doses are reviewed. PHYSICAL EXAMINATION: Patient is stuporous. Pulse 73, blood pressure 135/51, respiration 18, temperature 99.1, pulse ox 96% on 4 L. HEENT: Conjunctivae normal. NECK: No jugular venous distention. CARDIOVASCULAR: S1, S2 muffled. RESPIRATION: Breath sounds diminished at the bases. A few scattered rhonchi and crackles. ABDOMEN: Soft. LEGS: No edema. No swelling. NERVOUS SYSTEM: No focal deficit. LABS: Noted. WBC 16.3, hemoglobin 11.3. ASSESSMENT: 1. Acute COVID-19 bilateral interstitial pneumonia with acute hypoxic respiratory failure secondary to COVID-19 pneumonia, present on admission. 2. Right frontoparietal acute infarct with MCA distribution causing acute on chronic toxic encephalopathy as well as acute stroke. 3. Dysphagia with high risk of aspiration. 4. Possible aspiration pneumonia. 5. Status post PEG tube placement. 6. Atrial fibrillation with rapid ventricular rate, new onset. 7. D-dimer with no evidence of pulmonary embolism on the CT angio. 8. Mild protein-calorie malnutrition. 9. Change in mental status, acute metabolic encephalopathy. 10.Bilateral hemispheric stroke in cerebellar and occipital area parietal lobe on MRI previously. 11.Diabetes mellitus, type 2. 12.Hypertension. 13.Hyperlipidemia. 14.Deep vein thrombosis prophylaxis. RECOMMENDATIONS AND DISCUSSION: I recommend to continue current medications, continue with the monitoring, symptomatic treatment. Otherwise at this time I would recommend pain medications and consultation with Hospice. Prognosis guarded. Further recommendations to follow. MMODL / IJN: [id number] /
[2021-08-20 17:53] LABS: Glucose,Whole Blood 259 mg/dL (75-99)
[2021-08-20] MEDS: ATORVASTATIN 80 MG TAB PEG/G-TUBE SCH (20:45)
[2021-08-20 21:58] LABS: Glucose,Whole Blood 259 mg/dL (75-99)
[2021-08-20] MEDS: INSULIN DETEMIR (LEVEMIR) 100 UNIT/ML SYR SQ SCH (22:23)
--- NOTE | 2021-08-20 23:38 | PN ---
PROGRESS NOTE DATE OF SERVICE: 08/20/2021 REASON FOR FOLLOWUP: Pneumonia. INTERVAL HISTORY: The patient is afebrile. The patient is currently breathing comfortably. He is on 4 L nasal cannula. He is hemodynamically stable. Remains to be lethargic and unable to provide any history. No vomiting or diarrhea has been reported. PHYSICAL EXAMINATION: Blood pressure 129/66, pulse of 78, temperature 98.9. He is 96% on 4 L nasal cannula. General description is an elderly male lying in bed in no distress. Respiratory system: Unlabored breathing, decreased breath sounds at the base. No wheeze. Heart S1, S2. Regular rate. Abdomen soft, no tenderness. LABS: No new labs have been obtained today. DIAGNOSTIC IMPRESSION/PLAN: The patient initially has been hospitalized with Covid 19 pneumonia subsequently component of aspiration pneumonia for which the patient is currently covered with Zosyn transition to oral antibiotic on discharge. Continue supportive care. MMODL / IJN: [id number] /
[2021-08-21] MEDS: PIPERACILLIN-TAZOBACTAM 3.375 GM in SODIUM CHLORIDE 0.9% 100 ML IVPB SCH ×2 (00:58→08:04)
[2021-08-21 01:53] LABS: Glucose,Whole Blood 254 mg/dL (75-99)
[2021-08-21] MEDS: INSULIN ASPART (NovoLOG) 100 UNIT/ML VIAL SQ SCH ×3 (02:07→11:04)
[2021-08-21 05:31] LABS: Glucose,Whole Blood 187 mg/dL (75-99)
[2021-08-21] MEDS: ASPIRIN 81 MG PEG/G-TUBE SCH (08:04)
[2021-08-21] MEDS: DEXAMETHASONE SOD PHOSPHATE 10 MG/ML 1 ML VIAL IV SCH (08:04)
[2021-08-21] MEDS: ASCORBIC ACID 500 MG TAB PO SCH (08:05)
[2021-08-21] MEDS: ZINC SULFATE 220 MG CAP PO SCH (08:05)
[2021-08-21] MEDS: APIXABAN 5 MG TAB PO SCH (08:05)
[2021-08-21] MEDS: METOPROLOL TARTRATE 50 MG TAB PO SCH (08:05)
[2021-08-21] MEDS: CHOLECALCIFEROL 10 MCG (400 IU) TABLET PO SCH (08:06)
[2021-08-21] MEDS: levETIRAcetam ORAL SOLN 500 MG/5 ML CUP PEG/G-TUBE SCH (08:06)
[2021-08-21] MEDS: PANTOPRAZOLE 40 MG/10 ML VIAL IVP SCH (08:06)
[2021-08-21 09:29] LABS: Glucose,Whole Blood 165 mg/dL (75-99)
[2021-08-21 10:13] VITALS: BP 162/57; PULSE 77; RESP 16; TEMP 98.8
--- NOTE | 2021-08-21 11:26 | P.PN ---
Subjective Progress Note Date: 08/21/21 CHIEF COMPLAINT: COVID-19 pneumonia HISTORY OF PRESENT ILLNESS: Patient is status post PEG tube placement on 08/17/2021. He is tolerating tube feedings. Awaiting family's decision regarding possible hospice care. PHYSICAL EXAM: VITAL SIGNS: Reviewed. GENERAL: Well-developed in no acute distress. HEENT: No sclera icterus. Extraocular movements grossly intact. Moist buccal mucosa. Head is atraumatic, normocephalic. ABDOMEN: Soft. Nondistended. Nontender. PEG tube site clean dry and intact NEUROLOGIC: Minimal response ASSESSMENT: 1. Severe protein calorie malnutrition status post PEG tube placement 2. COVID-19 pneumonia 4. Atrial fibrillation 4. Embolic strokes bilaterally PLAN: -Continue tube feedings -Awaiting family decision regarding hospice Physician Supervisor [employer] note has been reviewed by physician. Signing provider agrees with the documented findings, assessment, and plan of care. Objective - Vital Signs Vital signs: Vital Signs Temp 98.8 F 08/21/21 10:00 Pulse 77 08/21/21 10:00 Resp 16 08/21/21 10:00 BP 162/57 08/21/21 10:00 Pulse Ox 96 08/21/21 10:00 Intake & Output 08/20/21 08/21/21 08/21/21 18:59 06:59 18:59 Intake Total 57 200 Output Total 600 900 Balance -543 200 -900 Weight 60.1 kg Intake: Intake, IV Titration 200 Amount Piperacillin-Tazobactam 3 200 .375 gm In Sodium Chloride 0.9% 100 ml @ 25 mls/hr IVPB Q8HR [facility] Rx# :[id number] Tube Feeding 57 Output: Urine 600 900 Other: Voiding Method Indwelling Catheter Indwelling Catheter # Bowel Movements 1 - Labs CBC & Chem 7: 08/19/21 04:56 08/19/21 04:56 Labs: Abnormal Lab Results - Last 24 Hours (Table) 08/20/21 08/20/21 08/20/21 Range/Units 13:50 17:50 21:57 POC Glucose (mg/dL) 232 H 259 H 259 H (75-99) mg/dL 08/21/21 08/21/21 08/21/21 Range/Units 01:52 05:30 09:28 POC Glucose (mg/dL) 254 H 187 H 165 H (75-99) mg/dL
--- NOTE | 2021-08-21 11:51 | P.PN ---
<Mariajose Naidu - Last Filed: 08/21/21 11:46> Subjective Progress Note Date: 08/21/21 Patient is a 75 -year-old pleasant male was transferred from a outside hospital for atrial fibrillation with rapid ventricular rate. Patient is presently on therapeutic dose of Lovenox. Also has highly elevated INR. His baseline cr eatinine is unknown but his present creatinine is around the 0.66, patient is receiving half-normal saline at 75 mL per hour patient is also on Remdesivir, presently on 15 L of oxygen, CT of the chest did not show any pulmonary embolism but did show diffuse infiltrate patient was having symptoms for about 4 days patient was unable to provide much of history to me patient is too tired and weak. Patient is not tolerating any by mouth medications at this time because of which patient was started on IV Cardizem patient usually takes metoprolol 25 twice a day. Patient doesn't have any history of congestive heart failure. Patient was started on Decadron as well. Patient has highly elevated d-dimer. 08/01/2021 Patient is seen in follow-up continues to be closely monitored in the ICU. Kae ent is extremely lethargic although is arousable and intermittently responding appropriately to questions and commands. Patient continues to have delayed response and altered mental status and CT of the brain was ordered. Neurology has been consulted and pulmonary along with urology following closely. She continues on IV heparin along with IV Cardizem. white blood count is 14.1, hemoglobin is stable at 16.1, d-dimer is above 34.10, sodium is 141 with a potassium of 4.5 and current creatinine is 0.61. LDH is 30-55 and CRP is 6.3. TSH is 0.112 and free T4 is 4.06. patient is maintained on 15 L high flow nasal cannula along with occasional intermittent nonrebreather. Patient is afebrile. 08/02/2021 Patient is seen in follow up this morning and is being closely monitored in the ICU with multiple medical consultations following including pulmonary, infectious disease, cardiology, and neurology. CT of the brain recommending MRI and this is ordered and pending. Patient is on 13L HF nasal cannula. Mentation slowly improving and answering questions appropriately. Patient continues to be extremely weak and fatigues easily. Cardiology planning to transition cardizem to oral and possibly starting eliquis. 08/03/2021 Patient is seen and evaluated in follow-up this morning and patient continues to improve although continues to be extremely weak and fatigued. Multiple medical consultations following an neurology recommending BARBARA although was reviewed by cardiology and no plans for BARBARA at this time as MRI along with CT confirms embolic stroke with MRI showing a few scattered areas of restricted diffusion in the inferior cerebellar hemispheres bilaterally with scattered areas of restricted diffusion present in the cerebellum, occipital lobes, as well as bilateral parietal lobes. Patient continued on subcutaneous heparin with discussion of possibly starting Eliquis in the next 2 days. Patient has been started on Brilinta an neurology is following closely. Speech has evaluated the patient and recommending continuing the patient with nothing by mouth except medications as the swallow eval was not able to be completed due to extreme fatigue and lethargy. Speech will reevaluate the patient once more alert and awake. White blood count today is 17.6 with a hemoglobin of 14.6, d-dimer is elevated at 27.78, sodium is 135 with a potassium of 3.6, BUN is 33 and creatini ne is 0.59. Blood sugars are being closely monitored. Repeat x-ray and labs along with inflammatory markers in the a.m. Continuing to wean as tolerated and patient is maintained on 9 L high flow and maintaining oxygen saturations of 97%. Patient with atrial fibrillation currently rate controlled with metoprolol and cardiology is following. 08/04/2021 Patient is seen in follow-up this morning continues to be in the ICU and continues to drift often fall asleep easily although mentation has improved. Patient states the year as 1990 but also states he knows that is wrong and states he is currently in the hospital for Covid but was unaware of any recent stroke. Right side elementary supervisor strength 4/5 improving although patient is unable to completely lift extremity and left side elementary supervisor strength continues to be weak 2/5 and completely unable to lift this extremity. Multiple medical consultations in cluding neurology, cardiology, rack washer along with infectious disease following closely. Patient being resumed on Eliquis and Brilinta has been discontinued. Chest x-ray today shows diffuse mild infiltrates greater on the left that can be compatible with atypical pneumonia. Awaiting repeat swallow eval today with the possibility of TPN for enteral nutrition as patient has been nothing by mouth. Patient continues on 11 L high flow and recommend to wean as tolerated. White blood count today is 27.3 with a hemoglobin of 15.6, d-dimer is 24.3, sodium is 131 with a potassium of 4.9, BUN is 26 and creatinine is 0.59. CRP is 4.3. Patient continues on baricitinib along with dexamethasone a nd vitamin and zinc supplements and will continue. 08/05/2021 Patient is evaluated today in the ICU, he is maintained on a BiPAP at the time of my assessment. Plan is to titrate oxygen as needed. Chest x-ray today reveals persistent left greater than right bilateral multifocal opacities. Labs are reviewed, White blood cell count 25.2. His d-dimer today is elevated at 29.09 which is slightly increased. LDH is 2286, CRP 5.8, pro calcitonin 0.07. Sodium today is 131. Vital signs include blood pressure 113/62. Respirations are 20s. Patient has remained afebrile. Swallow evaluation was conducted again today for follow-up for dysphagia intervention, that recommendations are for dysphagia 1. With honey thick liquid, supervision with basic needs. Patient needs one-to-one feeding with cues to swallow. Patient continues on baricitinib along with dexamethasone and vitamin and zinc supplements and will continue. Patient was evaluated by neurology today who feels as increasing right-sided weakness. Brain CT of the head initially reveals embolic ischemic insults. A repeat brain CT has been ordered to compare. We will hold off any BARBARA at this time per neurology and cardiology recommendations. 08/06/2021 Pt is alert and oriented x 3 at the time of my examination. He reports breathing better, able to take a deep breath. He is now on a 5L HF cannula with oxygen saturations in the mid 90s. BP today is 122/76, HR 88, afebrile. Labs are reviewed today, include a WBC of 24.6, sodium of 132, B of 24, Cr 0.57. Inflammatory markers continue to be elevated. Neurology has signed off today. Pt was able to lift left upper extremity off the bed however drifted and touched the bed after 2 seconds, his hand grasp was unequal with left weaker than right. A repeat brain CT was ordered for increasing upper extremity weakness. 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 There is no acute bleed. Patient continues on baricitinib, dexamethasone, zinc, and vitamins and will continue. 08/07/2021 Patient was seen and evaluated in follow-up as morning continues to be closely monitored in the ICU. Patient stating his shortness of breath mildly worsened and was on 5 L and now 7 L high flow. White blood count elevated at 25.4 and hemoglobin is stable at 14.4, sodium is 132 with a potassium of 3.9 current creatinine is 0.56. Magnesium is 2.0. Multiple medical consultations including neurology, infectious disease, and pulmonary following. Chest x-ray today shows bilateral groundglass consolidation slightly worsened in the interval. Patient is fatigued although arousable and responding appropriately. Left-sided weakness continues. Patient continues on IV dexamethasone along with vitamin and zinc supplements continued on anti-coagulant in the form of Eliquis and Baricitinib. Patient was also maintained on sliding scale along with long acting insulin although sugars have been low and actually required one amp of dextrose for a sugar less than 50 and will discontinue long-acting and continue sliding scale as needed. 08/08/2021 Patient is seen and evaluated in follow-up currently placed on BiPAP as patient oxygen saturations continued to deteriorate and patient was more lethargic. Patient continues to be in the ICU being closely monitored. BiPAP FiO2 is 40%. Patient is continued on vitamin and zinc supplements along with baricitinib, IV dexamethasone and eliquis and will continue. Pulmonary following closely. Patient continues to be lethargic with continued poor oral intake an NG tube was placed and dietitian consulted to begin tube feeds. Recommend Accu-Cheks and use sliding scale as needed. Chest x-ray this morning shows persistent left greater than right bilateral multifocal and confluent opacification his consistent with COVID-19 and no significant change from previous. 08/09/2021 Patient is seen and evaluated this morning and having a brief episode of atrial fibrillation with RVR with a heart rate of 130's -150's and cardizem was ordered although IV lasix dose was given and oral metoprolol most recently and appears to have converted back in sinus rhythm. Patient was extremely restless and attempting to take bipap mask off. Patient was extremely anxious and expressing concern of having to have a bowel movement. Multiple medical consultations following. Medications being adjusted by cardiology and increasing metoprolol dose. Patient is maintained on eliquis and Baricitinib along with steroids and vitamin supplements. Continue tube feeds for nutritional support. 08/10/2021 Patient was seen and evaluated in follow-up this morning continues to be closely monitored in the ICU with multiple medical consultations including pulmonary rack washer, infectious disease, and neurology has been asked to reevaluate the patient as patient continues to have intermittent periods of confusion but d oesn't appear to be a change from previous. Patient is extremely lethargic and maintained on BiPAP although is arousable but continues to fatigue easily and follows sleep. Repeat CT of the brain has been ordered and pending. Patient continues on gentle IV hydration along with vitamin and zinc supplements and is maintained on oral anticoagulant along with IV dexamethasone. Patient is tolerating tube feedings via NG tube and blood sugars now mildly elevated and will continue sliding scale and Accu-Cheks before meals and at bedtime. White blood count is elevated at 24.4 and hemoglobin is 12.4, sodium remains low at 131 with a potassium of 3.9 and current creatinine is 0.59. LFTs within normal limits and pro calcitonin is 0.05. Chest x-ray this morning shows continued patchy peripheral bilateral Covid pneumonia with some slight improvement on the left. 08/11/2021 Patient is seen this morning continues to be closely monitored in the ICU. Patient was bipap dependent and recently being transitioned to high flow nasal cannula and currently on 6L HF and per nursing staff continuing to wean as tolerated. Patient was able to work with physical therapy today and continues to be extremely weak. Multiple medical consultations following. Per nursing staff, patient will continue in the ICU with possible downgrade to the selective unit in the next few days. Blood sugars have been increasing and will continue sliding scale and will add long acting. 08/12/2021 Patient seen in the ICU, he is an overflow patient. O2 requirements down to 5 L nasal cannula today, he is alert but confused. Sodium level coming up to 131, he continues on Decadron, blood sugars 162 this afternoon. Chest x-ray repeated today showing bilateral groundglass opacities, no pneumothorax or pleural effusion. Continues in Nico feedings, NG tube in place. No fevers, hemodynamically stable 08/13/2021 Patient seen on reevaluation he is transferred out of the ICU and on the medical floor. He is more alert today, following commands able to move his extremities when prompted 2. He remains nothing by mouth, speech to reevaluate if he fails he may require PEG tube placement. He is currently on 5 L nasal cannula saturating above 90%, afebrile, hemodynamically stable 08/14/2021 Patient is seen and evaluated currently on 4 S. and has recently been placed back on airvo for acute respiratory distress and in a team was called. Patient was in A. fib RVR also and given a dose of IV push Lopressor. Patient is extremely lethargic and difficult to arouse today. Plan was for speech to reevaluate the patient today to wean off tube feeds and consult has been placed for possible PEG tube with general surgery. Repeat brain CT somewhat a previous exam with no acute changes noted. Chest x-ray shows some pulmonary edema and pleural fluid that is not significantly different from previous exam and cl earing of soft tissue air on the left lateral chest wall compared to old exam and patient will receive a dose of IV Lasix. IV fluids discontinued. 08/15/2021 Patient is seen in follow-up this morning recently brought back to the ICU as respiratory status deteriorated and patient is back on BiPAP with an FiO2 of 60%. Patient continues to be extremely lethargic and minimally arousable and continued on tube feeds. Patient's blood pressures have been low and maintained on IV hydration. Multiple medical consultations following including pulmonary rack washer and cardiology. Patient continued on IV dexamethasone along with oral anticoagulant and vitamin and zinc supplements and most recently started on IV Zosyn. Recommend to continue monitoring blood sugars closely as there was an episode of hypoglycemia last night and continued on sliding scale along with long-acting. Infectious disease also following. Chest x-ray today shows bilateral peripheral increased opacification is consistent with COVID-19 infection with no significant change from previous day. Family wishes for patient to remain full code with no intubation and will attempt again to address CODE STATUS as prognosis remains extremely guarded and poor. Patient also placed back on Cardizem drip for atrial fibrillation with RVR. 08/16/2021 Patient was seen and evaluated in follow-up this morning continues to be in the ICU being closely monitored. Patient is extremely lethargic and somewhat arousable following simple commands but falls asleep easily. Patient continues on BiPAP at 50%. Currently sinus rhythm and maintained on Lopressor 100 mg twice daily and Cardizem drip discontinued. Patient also continues on Eliquis which will be on hold as consult was placed for PEG tube placement as family would like to proceed with this. Patient is maintained on tube feedings via NG tube and surgery is planning for PEG tube in the morning. Patient also continues on IV dexamethasone along with vitamin and zinc supplements and IV Zosyn as well. Recommend continuing gentle IV hydration of normal saline at 75 ML per hour. Chest x-ray today which was personally reviewed by me shows bilateral lung infiltrates greater on the left possibly compatible with atypical pneumonia. 08/17/2021 Patient is seen in the follow-up continues to be in the ICU lethargic minimally arousable. Patient has been transitioned to high flow nasal cannula and will continue with BiPAP on standby and at night. Patient was started on 10 L and currently on 5 L high flow nasal cannula with oxygen saturation of 98%. Anticoagulant on hold currently as patient is scheduled to receive a PEG tube today for continued feedings. Patient does have an NG tube which can be discontinued once the PEG tube is approved for use by surgery. Multiple medical consultations including cardiology, pulmonary, surgery, neurology following. Patient continues on IV dexamethasone along with vitamin and zinc supplements and continues on IV Zosyn. Patient having elevated blood pressures and will discontinue IV fluids. 08/18/2021 Patient is seen this morning and has been started on peg tube feedings. Patient continues to be closely monitored in the ICU with multiple medical consultations following. Patient continues to be minimally responsive and per nursing staff more confused and neurology asked to reevaluate the patient. EEG and CT brain ordered. Patient had some hypoglycemic episodes and ok per surgery to start tube feeds. Will continue accuchecks and close monitoring. Will also continue sliding scale along with long acting insulin. . 08/21/2021 Patient is seen this morning continues to be obtunded and unresponsive. Family met with hospice and is agreeable to make comfort measures only. Patient is continued on tube feeds which will be discontinued. Prognosis remains extremely poor and guarded. Review of systems: Unable to obtain as patient is obtunded and minimally responsive All medications have been reviewed Active Medications Acetaminophen (Acetaminophen Tab 325 Mg Tab) 650 mg PO Q4HR PRN PRN Reason: Fever and/ or Pain Last Admin: 08/20/21 06:32 Dose: 650 mg Documented by: Apixaban (Apixaban 5 Mg Tab) 5 mg PO BID CARISSA; Protocol Last Admin: 08/21/21 08:05 Dose: 5 mg Documented by: Ascorbic Acid (Ascorbic Acid 500 Mg Tab) 500 mg PO DAILY [facility] Last Admin: 08/21/21 08:05 Dose: 500 mg Documented by: Aspirin (Aspirin 81 Mg) 81 mg PEG/G-TUBE DAILY [facility] Last Admin: 08/21/21 08:04 Dose: 81 mg Documented by: Atorvastatin Calcium (Atorvastatin 80 Mg Tab) 80 mg PEG/G-TUBE [facility] Last Admin: 08/20/21 20:45 Dose: 80 mg Documented by: Calcium Carbonate/Glycine (Calcium Carbonate 500 Mg Chewable) 500 mg PO TID PRN PRN Reason: Heartburn Last Admin: 08/06/21 08:37 Dose: 500 mg Documented by: Cholecalciferol (Cholecalciferol 10 Mcg (400 Iu) Tablet) 10 mcg PO DAILY [facility] Last Admin: 08/21/21 08:06 Dose: 10 mcg Documented by: Dexamethasone Sodium Phosphate (Dexamethasone Sod Phosphate 10 Mg/Ml 1 Ml Vial) 6 mg IV DAILY [facility] Last Admin: 08/21/21 08:04 Dose: 6 mg Documented by: Hydromorphone HCl (Hydromorphone 0.5 Mg/0.5 Ml Syringe) 0.5 mg IVP Q2H PRN PRN Reason: Pain Hydromorphone HCl (Hydromorphone 1 Mg/Ml 1 Ml Syringe) 1 mg IVP Q4HR PRN PRN Reason: Pain Piperacillin Sod/Tazobactam (Sod 3.375 gm/ Sodium Chloride) 100 mls @ 25 mls/hr IVPB Q8HR [facility] Last Admin: 08/21/21 08:04 Dose: 25 mls/hr Documented by: Insulin Aspart (Insulin Aspart (Novolog) 100 Unit/Ml Vial) 0 unit SQ Q4H [facility]; Protocol Last Admin: 08/21/21 11:04 Dose: 1 unit Documented by: Insulin Detemir (Insulin Detemir (Levemir) 100 Unit/Ml Syr) 15 unit SQ HS [facility] Last Admin: 08/20/21 22:23 Dose: 15 unit Documented by: Levetiracetam (Levetiracetam Oral Soln 500 Mg/5 Ml Cup) 500 mg PEG/G-TUBE Q12HR [facility] Last Admin: 08/21/21 08:06 Dose: 500 mg Documented by: Metoprolol Tartrate (Metoprolol Tartrate 50 Mg Tab) 100 mg PO BID [facility] Last Admin: 08/21/21 08:05 Dose: 100 mg Documented by: Miscellaneous Information (Potassium Replacement Protocol 1 Each Misc) 1 each MISCELLANE DAILY PRN; Protocol PRN Reason: Per Protocol Miscellaneous Information (Magnesium Replacement Protocol 1 Each Misc) 1 each MISCELLANE DAILY PRN; Protocol PRN Reason: Per Protocol Pantoprazole Sodium (Pantoprazole 40 Mg/10 Ml Vial) 40 mg IVP BID [facility] Last Admin: 08/21/21 08:06 Dose: 40 mg Documented by: Sodium Chloride (Sodium Chloride 0.9% Flush 10 Ml Syringe) 10 ml IV Q4HR PRN PRN Reason: PICC Line Sodium Chloride (Sodium Chloride 0.9% Flush 10 Ml Syringe) 10 ml IV WEEKLY [facility] Last Admin: 08/16/21 09:00 Dose: 10 ml Documented by: Sodium Chloride (Sodium Chloride 0.9% Flush 10 Ml Syringe) 20 ml IV Q4HR PRN PRN Reason: PICC Line Zinc Sulfate (Zinc Sulfate 220 Mg Cap) 220 mg PO DAILY [facility] Last Admin: 08/21/21 08:05 Dose: 220 mg Documented by: PHYSICAL EXAMINATION: GENERAL: The patient is alert and oriented x0, obtunded and unresponsive. Appears comfortable in no acute distress. HEENT: Pupils are round and equally reacting to light. EOMI. No scleral icterus. No conjunctival pallor. Normocephalic, atraumatic. No pharyngeal erythema. No thyromegaly. CARDIOVASCULAR: S1 and S2 muffled. PULMONARY: Diffuse bilateral coarse rhonchi and scattered crackles noted with diminished breath sounds at the bases, gurgling noted in the throat of increased oral secretions ABDOMEN: Soft, nontender, nondistended, normoactive bowel sounds. No palpable organomegaly. MUSCULOSKELETAL: No joint swelling or deformity. EXTREMITIES: No cyanosis, clubbing, or pedal edema. NEUROLOGICAL: obtunded, extremely lethargic. Diffusely weak SKIN: No rashes. Assessment and plan: -Acute Covid 19 bilateral interstitial pneumonia with acute hypoxic respiratory failure, secondary to COVID-19 pneumonia, present on admission -Right frontoparietal acute infarct in the MCA distribution measuring 6x4cm as noted on CT 08/18/2021, new compared to previous exam, causing acute on chronic toxic encephalopathy as well as acute stroke -Possible metabolic encephalopathy -Dysphagia, high risk for aspiration -Status post PEG tube placement -Atrial fibrillation with rapid ventricular rate new onset -elevated d-dimer with no evidence of PE on CTA -Mild protein calorie malnutrition secondary to poor oral intake due to respiratory status deterioration -altered mental status possibly secondary to COVID-19 encephalopathy or possibly secondary to bilateral hemispheric stroke -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 Consultation with hospice has been done and family is agreeable with [facility] and patient will be made comfort measures. Patient is continued on tube feeds which we will discontinue and currently maintained on 4 L nasal cannula. Patient continues to be obtunded and unresponsive and not following any commands. Prognosis remains extremely poor and guarded and will have pat ient flipped to [facility] inpatient status GIP with comfort measures only. Family is agreeable with this. Objective - Vital Signs Vital signs: Vital Signs Temp 98.1 F 08/21/21 06:13 Pulse 79 08/21/21 06:13 Resp 22 08/21/21 06:13 BP 158/65 08/21/21 06:13 Pulse Ox 100 08/21/21 06:13 Intake & Output 08/20/21 08/21/21 08/21/21 18:59 06:59 18:59 Intake Total 57 200 Output Total 600 900 Balance -543 200 -900 Weight 60.1 kg Intake: Intake, IV Titration 200 Amount Piperacillin-Tazobactam 3 200 .375 gm In Sodium Chloride 0.9% 100 ml @ 25 mls/hr IVPB Q8HR [facility] Rx# :[id number] Tube Feeding 57 Output: Urine 600 900 Other: Voiding Method Indwelling Catheter Indwelling Catheter # Bowel Movements 1 - Labs CBC & Chem 7: 08/19/21 04:56 08/19/21 04:56 Labs: Abnormal Lab Results - Last 24 Hours (Table) 08/20/21 08/20/21 08/20/21 Range/Units 10:04 13:50 17:50 POC Glucose (mg/dL) 188 H 232 H 259 H (75-99) mg/dL 08/20/21 08/21/21 08/21/21 Range/Units 21:57 01:52 05:30 POC Glucose (mg/dL) 259 H 254 H 187 H (75-99) mg/dL 08/21/21 Range/Units 09:28 POC Glucose (mg/dL) 165 H (75-99) mg/dL <Andres Keller E - Last Filed: 08/22/21 07:51> Subjective please consider this note as discharge summary Objective - Vital Signs Vital signs: Vital Signs Temp 98.8 F 08/21/21 10:00 Pulse 77 08/21/21 10:00 Resp 16 08/21/21 10:00 BP 162/57 08/21/21 10:00 Pulse Ox 96 08/21/21 10:00 Intake & Output 08/21/21 08/22/21 08/22/21 18:59 06:59 18:59 Output Total 900 Balance -900 Output: Urine 900 Other: Voiding Method Indwelling Catheter # Bowel Movements 1 - Labs CBC & Chem 7: 08/19/21 04:56 08/19/21 04:56 Labs: Abnormal Lab Results - Last 24 Hours (Table) 08/21/21 Range/Units 09:28 POC Glucose (mg/dL) 165 H (75-99) mg/dL
--- NOTE | 2021-08-21 11:55 | P.PN ---
Subjective Progress Note Date: 08/21/21 Principal diagnosis: COVID 19 On 08/13/2021 patient seen in follow-up on medical surgical floor. He is lethargic on today's exam, but does arouse to voice, he answers simple ques tions, he follows simple command, appears very weak, but breathing comfortably, he is currently on 5 L of oxygen with pulse ox of 92-97%, his been afebrile, doesn't appear to be in any acute distress, however his head is laying down on his shoulder, does not seem to be able to hold up his head erect. He knew the place and is oriented to person, but he thinks the president is Shlomo, and after a couple of hints he did say that the president is Etienne. His NG tube remains in place, and he has tube feedings infusing, he has been tolerating tube feedings well, she remains on Decadron 6 mg daily, he is on Eliquis 5 mg twice daily, he continues on IV fluids with 0.9 at 75. His chest x-ray from yesterday shows bilateral groundglass opacities within the lungs, NG tube is in appropriate position, no evident pneumothorax or pleural effusion, and there is a left-sided PICC line in place. Today's labs have been reviewed, his white blood cell count is improving and is down to 18.6, hemoglobin is 11.6, his sodium is improving and is up to 133, the rest of electrolytes were within normal limits, BUN is 21 creatinine 0.62, his ALT is up slightly at 53, AST was 51, alkaline phosphatase is relatively stable at 191 up slightly from 182, and his last pro-calcitonin that was done on 08/10/2021 was negative at 0.05. Patient has had no fever or chills. Patient has been nothing by mouth in view of his hypoxia, BiPAP dependence, recent stroke this admission, and overall generalized weakness and high aspiration risk. We'll obtain speech evaluation On 08/14/2021 patient seen in follow-up on medical surgical floor, he is more lethargic on today's exam, he requires repeated for most stipulation, and tactile stimulation to open his eyes, does not appear to be in any acute distress, rapid response team was called last night, for worsening hypoxia, tachypnea, and his heart rate was in the 130s, A. fib with RVR, his blood pressure was elevated at greater than 190 systolic. Patient was noted to have oxygen saturations in the low 80s on the 100% non-rebreather. He did have a temp of 101.5F, chest x-ray was repeated showing pulmonary edema and pleural fluid is not significantly different from his last exam. Patient was placed on Airvo on which she remains, initially at 60 L an FiO2 of 93%, his pulse ox did improve. Subsequently his FiO2 was dropped down to 80%, his pulse ox is still 96-99%. Today's labs show increased white blood cell, which is currently at 33.2, hemoglobin of 12.7, d-dimer is 14.04, sodium is 131, potassium is 4.0, chloride is 95, BUN is 25 creatinine 0.61. Remains on Decadron 6 mg daily, she was given a dose of IV push Lopressor, he continues on Lopressor 100 mg by mouth twice daily. His mentation remains lethargic, and patient is an increased risk for aspiration. He was supposed to be seen by speech therapy today and have a swallow evaluation to evaluate for potential ability to eat by mouth. It was suspected that he will need a PEG tube. He still has the NG tube in his nose, and receiving tube feedings with vital AF at rate of 57. On 08/15/2021 patient seen in follow-up in intensive care unit where she was transferred last night. Patient continued to desaturate on the floor, and required to be placed on BiPAP support, currently with pressures of 16 and 10 and FiO2 of 90%. Remains extremely lethargic. Afebrile, and not requiring any vasopressor support, he is on 0.9 normal significantly to 20 ML per hour, he has not been able to complete swallow evaluation related to his extremely poor mental status, which seems to be worsening. Repeat brain CT yesterday showed a cerebral bilaterally, no acute intracranial abnormality, and old right thalamic lacunar infarct. No change from previous CT of the brain. Yesterday we empirically started the patient on Zosyn for possibility of aspiration related pneumonitis. This white blood cell count is slightly improved today, however still elevated at 29.8, hemoglobin is 10.4, d-dimer is down to 3.8, sodium is 134, potassium 3.7, chloride is 100, B1 is 35, creatinine 0.71, LDH is down to 1462, improving, CRP is up to 19.9. Patient continues on Eliquis, currently remains in sinus mechanism with a controlled rate, yesterday during episode of worsening dyspnea and hypoxia, he was requiring Cardizem infusion for rate control, Cardizem drip is currently discontinued. Addition patient continues on dexamethasone 6 mg daily, COVID vitamins. Today's chest x-ray shows bilateral peripheral increased opacities consistent with COVID-19 infection. No significant change from one day earlier, patient's spouse was updated on his condition, and the decision was made not to proceed with intubation and placement on mechanical ventilator should his condition continued to deteriorate. On 08/17/2021 patient seen in follow-up in the intensive care unit. he still very lethargic, he barely opens his eyes to repeated verbal and tactile stimulation, he is currently on BiPAP support with pressures of 16/10, and FiO2 of 40%, his pulse ox is 94%. NG tube remains in place for tube feedings that are currently on hold, general surgery has been consulted for placement of PEG tube which is scheduled for today. Patient is on 0.9 normal sinus rate is 75 ML per hour, he remains on Zosyn for possibility of aspiration pneumonia. he remains on Decadron 6 mg once daily, he is on COVID vitamins. He is not requiring any vasopressor support. Level of consciousness and his mental status have remained abnormal, patient has been quite somnolent, she suspected to have abnormal swallowing, and aspiration pneumonia. Been afebrile, blood pressure is elevated with the systolic in the 160s to 170s, and diastolic in the 70s and 80s. He is currently in A. fib with RVR with a rate of 157. Patient has not had his morning medications yet, he is due for his Lopressor dose 100 mg per the PEG tube. Anticoagulation is on hold right now for PEG tube placement. Generally patient appears to be very swollen. Patient's weight is up by 0.4 kg in last 24 hours, and overall patient is at least 11 kg positive since admission. Urine output is in the order of 100-200 mL an hour. Patient does not appear to be in any acute distress, however he needs positive pressure ventilation intermittently and at bedtime. he could be placed on high flow nasal cannula intermittently. On today's evaluation on 08/18/2021 patient is seen in follow-up in the intensive care unit, he still quite lethargic, he is able to open his eyes repeated verbal stimulation. Very weak, he is on BiPAP support with pressures of 16/10 and FiO2 of 40%, with a pulse ox of 91%, yesterday he tolerated high flow nasal cannula, and by the end of the evening he was down to 4 L, and for the nighttime she was placed back on positive pressure ventilation via BiPAP. Patient had a PEG tube placed yesterday, at around 1:00, tube feedings have been on hold since yesterday, we anticipate starting tube feedings this morning. Overnight patient had episodes of hypoglycemia. And he received D5W at a rate of 50 ML per hour. In addition yesterday she received a dose of IV Lasix and he is -2.5 L net fluid balance over the last 24 hours. However his sodium is down to 123 from previously at 131 on yesterday's labs. Serum potassium is 3.4, chloride is 91, BUN is 21 creatinine 0.59, this morning's blood sugar recheck revealed a blood sugar of 348, capillary blood glucose was 100. Tube feedings remain on hold for now. White blood cell count is trending down and is down to 14.4, hemoglobin is 10.4, last pro calcitonin level from 08/14/2021 was 0.26. Patient is currently on Zosyn for empiric antibiotic coverage. Today's chest x- ray is pending. Patient is in sinus mechanism with a rate of 82, blood pressure is 131/60, he was just switched over to high flow nasal cannula at 15 L and his pulse ox is actually improved and is up to 99-100%. Left consciousness remains very lethargic, patient is trying to follow simple command, he is able to squeeze with his right hand, unable to squeeze with his left hand. Generally he is very weak. His cough is weak. Lung sounds reveal diffuse rhonchi throughout the lung camargo. On today's evaluation on 08/21/2021 patient seen in follow-up on medical surgical floor, patient is poorly responsive, with gurgly respirations, is of oxygen pulse ox is 96%. Afebrile, hemodynamically stable, his last chest x-ray was on 08/19/2021 showing diffuse scattered interstitial airspace opacities, small gram daily for COVID-19 pneumonia, he remains on Zosyn for suspected aspiration, he is on Eliquis for atrial fibrillation. Unfortunately in the last few days patient's condition had deteriorated and patient suffered a new large size frontal parietal MCA distribution. Patient was originally DO NOT RESUSCITATE, he continued to deteriorate through the course of his hospital stay, and at this time his family has decided to go with hospice Objective - Vital Signs Vital signs: Vital Signs Temp 98.8 F 08/21/21 10:00 Pulse 77 08/21/21 10:00 Resp 16 08/21/21 10:00 BP 162/57 08/21/21 10:00 Pulse Ox 96 08/21/21 10:00 Intake & Output 08/20/21 08/21/21 08/21/21 18:59 06:59 18:59 Intake Total 57 200 Output Total 600 900 Balance -543 200 -900 Weight 60.1 kg Intake: Intake, IV Titration 200 Amount Piperacillin-Tazobactam 3 200 .375 gm In Sodium Chloride 0.9% 100 ml @ 25 mls/hr IVPB Q8HR [facility] Rx# :[id number] Tube Feeding 57 Output: Urine 600 900 Other: Voiding Method Indwelling Catheter Indwelling Catheter # Bowel Movements 1 - Exam GENERAL EXAM:lethargic, 75-year-old patient is currently on 3 l/min patient is extremely lethargic. HEAD: Normocephalic/atraumatic. EYES: Normal reaction of pupils, equal size. Conjunctiva pink, sclera white. NOSE: Clear with pink turbinates. NG tube has been removed THROAT: No erythema or exudates. NECK: No masses, no JVD, no thyroid enlargement, no adenopathy. CHEST: No chest wall deformity. Symmetrical expansion. LUNGS: Equal air entry with no crackles, wheeze, rhonchi or dullness. CVS: Regular rate and rhythm, normal S1 and S2, no gallops, no murmurs, no rubs ABDOMEN: Soft, nontender. No hepatosplenomegaly, normal bowel sounds, no guarding or rigidity. PEG tube is in place, tube feedings have not been started yet. EXTREMITIES: No clubbing, generalized edema, no cyanosis, 2+ pulses and upper and lower extremities. MUSCULOSKELETAL: Muscle strength and tone weak SPINE: No scoliosis or deformity SKIN: No rashes CENTRAL NERVOUS SYSTEM: Lethargic. Left sided weakness with weaker left application support intern - Labs CBC & Chem 7: 08/19/21 04:56 08/19/21 04:56 Labs: Abnormal Lab Results - Last 24 Hours (Table) 08/20/21 08/20/21 08/20/21 Range/Units 13:50 17:50 21:57 POC Glucose (mg/dL) 232 H 259 H 259 H (75-99) mg/dL 08/21/21 08/21/21 08/21/21 Range/Units 01:52 05:30 09:28 POC Glucose (mg/dL) 254 H 187 H 165 H (75-99) mg/dL Assessment and Plan Plan: #1. Acute hypoxic respiratory failure secondary to COVID-19 pneumonia, and aspiration pneumonia patient was on BiPAP support. On 08/14/2021 patient had to be transferred back to the intensive care unit for worsening hypoxia and placed on BiPAP support with pressures of 16 and 10 and FiO2 of 100%. On 4 L of oxygen currently #2. New large frontoparietal CVA as seen on CT brain from 08/18/2021 #3. 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 #5. Left-sided weakness related to recent history of embolic CVA during this admission #6. Chronic atrial fibrillation, currently in sinus mechanism, patient has been on Eliquis #7. Elevated inflammatory markers secondary to COVID-19 pneumonia, and they are currently improving #8. Type 2 diabetes mellitus #9. Dyslipidemia #10. Worsening leukocytosis with negative procalcitonin level, we'll repeat a pro-calcitonin level #11. Overall general medical debility from COVID-19 pneumonia, and prolonged hospitalization #12. Episodes of hypoglycemia, Levemir has been discontinued, D5W was started #13. Hyponatremia, to diuresis, and D5W infusion. Sodium 123 this morning on 08/18/2021. D5W will be discontinued Plan: Patient's condition unfortunately continued to deteriorate Patient suffered a new large frontoparietal CVA His LOC is very obtunded He does not cough, he is on tube feedings for high risk aspiration At this time patient's family elected hospice, which is reasonable I performed a history & physical examination of the patient and discussed their management with my nurse practitioner, Emily Tovar. I reviewed the nurse practitioner's note and agree with the documented findings and plan of care. Lung sounds are positive for diminished breath sounds throughout the lung camargo. The findings and the impression was discussed with the patient. I attest to the documentation by the nurse practitioner. Time with Patient: Less than 30
--- NOTE | 2021-08-22 07:53 | P.DS ---
Providers Date of admission: 07/30/21 19:41 Attending physician: Bharati Del Valle Consults: 07/30/21 21:15 Consult Physician Routine Consulting Provider: Ceferino Leon Consult Reason/Comments: COVID Do you want consulting provider notified?: Yes 07/30/21 21:18 Consult Physician Routine Consulting Provider: Shira Tan Consult Reason/Comments: NOS Afib Do you want consulting provider notified?: Yes Consult Physician Routine Consulting Provider: Vasquez Ochoa Consult Reason/Comments: COVID Do you want consulting provider notified?: Yes 08/01/21 09:19 Consult Physician Routine Consulting Provider: Kaiser Ochoa Consult Reason/Comments: AMS Do you want consulting provider notified?: Yes 08/02/21 12:28 Consult Physician Routine Consulting Provider: Shira Tan Consult Reason/Comments: BARBARA due to embolic stroke Do you want consulting provider notified?: Yes 08/16/21 08:50 Consult Physician Routine Consulting Provider: Henrique Pierre Consult Reason/Comments: Peg tube placement Do you want consulting provider notified?: Yes 08/18/21 12:48 Consult Physician Urgent Consulting Provider: Kaiser Ochoa Consult Reason/Comments: worsening neuro status Do you want consulting provider notified?: Yes Primary care physician: [facility] Course: * please refer to last progress note from 08/21 ( from ISELA perkins) , that note is considered discharge summary Plan - Discharge Summary New Discharge Prescriptions: No Action Zinc 50 mg PO DAILY lisinopriL 20 mg PO BID Azithromycin [Zithromax] See Taper PO DAILY Cbd Sublingual Tabs (Unknown Strength) 1 dose SL Q4-6H PRN PRN Reason: ANXIETY/APPETITE Clopidogrel Bisulfate [Plavix] 75 mg PO DAILY amLODIPine [Norvasc] 10 mg PO DAILY glipiZIDE [Glucotrol] 10 mg PO BID Discharge Medication List Azithromycin [Zithromax] See Taper PO DAILY 07/30/21 [History] Cbd Sublingual Tabs (Unknown Strength) 1 dose SL Q4-6H PRN 07/30/21 [History] Clopidogrel Bisulfate [Plavix] 75 mg PO DAILY 07/30/21 [History] Zinc 50 mg PO DAILY 07/30/21 [History] amLODIPine [Norvasc] 10 mg PO DAILY 07/30/21 [History] glipiZIDE [Glucotrol] 10 mg PO BID 07/30/21 [History] lisinopriL 20 mg PO BID 07/30/21 [History] Follow up Appointment(s)/Referral(s): Ash Rosenbaum DO [Primary Care Provider] - 1-2 Days Activity/Diet/Wound Care/Special Instructions: Any new Rx will need to be faxed to the [facility] for them to fill. Patient will need to pay out of pocket for a 2 week supply of meds at d/c. Discharge Disposition: DISCH TO HOSPICE MED FACILTY
== END 2021-08-21 13:48 | disposition hospice, inpatient (51) | DRG 177 ==
LOC: 3SCARD 19:41 → 2SICU 07-31 13:39 → 4SSUR 08-12 19:42 → 3SCARD 08-14 18:12 → 2SICU 08-14 19:14 → 4SSUR 08-19 20:27
PROVIDERS: ADMIT Internal Medicine; ATTEND Internal Medicine
PROC: XW033E5 Introduction of Remdesivir Anti-infective into Peripheral Vein, Percutaneous Approach, New Technology Group 5 (ICD-10-PCS; 2021-07-31)
PROC: XW0DXM6 Introduction of Baricitinib into Mouth and Pharynx, External Approach, New Technology Group 6 (ICD-10-PCS; 2021-07-31)
PROC: B24BZZ4 Ultrasonography of Heart with Aorta, Transesophageal (ICD-10-PCS; 2021-07-31)
PROC: 02HV33Z Insertion of Infusion Device into Superior Vena Cava, Percutaneous Approach (ICD-10-PCS; 2021-08-02)
PROC: 3E0436Z Introduction of Nutritional Substance into Central Vein, Percutaneous Approach (ICD-10-PCS; 2021-08-02)
PROC: 5A09557 Assistance with Respiratory Ventilation, Greater than 96 Consecutive Hours, Continuous Positive Airway Pressure (ICD-10-PCS; 2021-08-05)
PROC: 0DH63UZ Insertion of Feeding Device into Stomach, Percutaneous Approach (ICD-10-PCS; principal; 2021-08-17 07:30)
DX: U07.1 COVID-19 (principal); J12.82 Pneumonia due to coronavirus disease 2019; J96.01 Acute respiratory failure with hypoxia; I63.411 Cerebral infarction due to embolism of right middle cerebral artery; J69.0 Pneumonitis due to inhalation of food and vomit; E43 Unspecified severe protein-calorie malnutrition; G93.1 Anoxic brain damage, not elsewhere classified; G62.81 Critical illness polyneuropathy; G72.81 Critical illness myopathy; I48.19 Other persistent atrial fibrillation; E87.1 Hypo-osmolality and hyponatremia; E87.2 Acidosis; R79.1 Abnormal coagulation profile; E11.649 Type 2 diabetes mellitus with hypoglycemia without coma; E11.65 Type 2 diabetes mellitus with hyperglycemia; Z66 Do not resuscitate; Z51.5 Encounter for palliative care; I08.1 Rheumatic disorders of both mitral and tricuspid valves; I10 Essential (primary) hypertension; R13.10 Dysphagia, unspecified; E78.5 Hyperlipidemia, unspecified; R53.81 Other malaise; T50.2X5A Adverse effect of carbonic-anhydrase inhibitors, benzothiadiazides and other diuretics, initial encounter; T38.0X5A Adverse effect of glucocorticoids and synthetic analogues, initial encounter; Z79.899 Other long term (current) drug therapy; Z79.02 Long term (current) use of antithrombotics/antiplatelets; Z79.01 Long term (current) use of anticoagulants; Z79.4 Long term (current) use of insulin; Z78.9 Other specified health status; Z79.82 Long term (current) use of aspirin
CPT/HCPCS: 36573; 36600; 43246; 70450; 70496; 70498; 70553; 71045; 71275; 80048; 80053; 80061; 82550; 82607; 82728; 82746; 82805; 83036; 83615; 83625; 83735; 84145; 84439; 84443; 84484; 85025; 85027; 85379; 85384; 85610; 85730; 86140; 93005; 93306; 93880; 93970; 94660; 94760; 95816

== ENCOUNTER 2021-08-21 11:50 | Inpatient (IN) | payer MEDICAID ==
[2021-08-21] MEDS ORDERED: ONDANSETRON 4 MG/2 ML VIAL IVP PRN (11:53)
[2021-08-21] MEDS ORDERED: GLYCOPYRROLATE 0.2 MG/ML 2 ML VIAL IVP PRN (11:53)
[2021-08-21] MEDS ORDERED: ATROPINE OPHTH SOLN 1% 5ML BTL SUBLINGUAL PRN (11:53)
[2021-08-21] MEDS ORDERED: MORPHINE SULFATE 2 MG/ML SYRINGE IV PRN (11:53)
[2021-08-21] MEDS ORDERED: HALOPERIDOL LACTATE 5 MG/ML 1 ML VIAL IM PRN (11:53)
[2021-08-21] MEDS ORDERED: HYOSCYAMINE ORAL DROPS 1.875 MG/15 ML BOTTLE PO PRN (12:00)
[2021-08-21 14:39] VITALS: BMI 22.0
[2021-08-21] MEDS: MORPHINE SULFATE (100 MG/2 ML) 100 MG in SODIUM CHLORIDE 0.9% 100 ML IV SCH (14:48)
[2021-08-21] MEDS: SCOPOLAMINE 1.5MG/72HR PATCH TRANSDERM SCH (14:49)
--- NOTE | 2021-08-22 11:41 | P.PN ---
Subjective Progress Note Date: 08/22/21 Patient is a 75 -year-old pleasant male was transferred from a outside hospital for atrial fibrillation with rapid ventricular rate. Patient is presently on therapeutic dose of Lovenox. Also has highly elevated INR. His baseline creatinine is unknown but his present creatinine is around the 0.66, patient is receiving half-normal saline at 75 mL per hour patient is also on Remdesivir, presently on 15 L of oxygen, CT of the chest did not show any pulmonary embolism but did show diffuse infiltrate patient was having symptoms for about 4 days patient was unable to provide much of history to me patient is too tired and weak. Patient is not tolerating any by mouth medications at this time because o f which patient was started on IV Cardizem patient usually takes metoprolol 25 twice a day. Patient doesn't have any history of congestive heart failure. Patient was started on Decadron as well. Patient has highly elevated d-dimer. 08/01/2021 Patient is seen in follow-up continues to be closely monitored in the ICU. Patient is extremely lethargic although is arousable and intermittently res ponding appropriately to questions and commands. Patient continues to have delayed response and altered mental status and CT of the brain was ordered. Neurology has been consulted and pulmonary along with urology following closely. She continues on IV heparin along with IV Cardizem. white blood count is 14.1, hemoglobin is stable at 16.1, d-dimer is above 34.10, sodium is 141 with a potassium of 4.5 and current creatinine is 0.61. LDH is 30-55 and CRP is 6.3. TSH is 0.112 and free T4 is 4.06. patient is maintained on 15 L high flow nasal cannula along with occasional intermittent nonrebreather. Patient is afebrile. 08/02/2021 Patient is seen in follow up this morning and is being closely monitored in the ICU with multiple medical consultations following including pulmonary, infectio us disease, cardiology, and neurology. CT of the brain recommending MRI and this is ordered and pending. Patient is on 13L HF nasal cannula. Mentation slowly improving and answering questions appropriately. Patient continues to be extremely weak and fatigues easily. Cardiology planning to transition cardizem to oral and possibly starting eliquis. 08/03/2021 Patient is seen and evaluated in follow-up this morning and patient continues to improve although continues to be extremely weak and fatigued. Multiple medical consultations following an neurology recommending BARBARA although was reviewed by cardiology and no plans for BARBARA at this time as MRI along with CT confirms embolic stroke with MRI showing a few scattered areas of restricted diffusion in the inferior cerebellar hemispheres bilaterally with scattered areas of restricted diffusion present in the cerebellum, occipital lobes, as well as bilateral parietal lobes. Patient continued on subcutaneous heparin with discussion of possibly starting Eliquis in the next 2 days. Patient has been started on Brilinta an neurology is following closely. Speech has evaluated the patient and recommending continuing the patient with nothing by mouth except medications as the swallow eval was not able to be completed due to extreme fatigue and lethargy. Speech will reevaluate the patient once more alert and awake. White blood count today is 17.6 with a hemoglobin of 14.6, d-dimer is elevated at 27.78, sodium is 135 with a potassium of 3.6, BUN is 33 and creatinine is 0.59. Blood sugars are being closely monitored. Repeat x-ray and labs along with inflammatory markers in the a.m. Continuing to wean as tolerated and patient is maintained on 9 L high flow and maintaining oxygen saturations of 97%. Patient with atrial fibrillation currently rate controlled with metoprolol and cardiology is following. 08/04/2021 Patient is seen in follow-up this morning continues to be in the ICU and continues to drift often fall asleep easily although mentation has improved. Patient states the year as 1990 but also states he knows that is wrong and states he is currently in the hospital for Covid but was unaware of any recent stroke. Right side icd 9 coder strength 4/5 improving although patient is unable to completely lift extremity and left side icd 9 coder strength continues to be weak 2/5 and completely unable to lift this extremity. Multiple medical consultations including neurology, cardiology, tire duster along with infectious disease following closely. Patient being resumed on Eliquis and Brilinta has been discontinued. Chest x-ray today shows diffuse mild infiltrates greater on the left that can be compatible with atypical pneumonia. Awaiting repeat swallow eval today with the possibility of TPN for enteral nutrition as patient has been nothing by mouth. Patient continues on 11 L high flow and recommend to wean as tolerated. White blood count today is 27.3 with a hemoglobin of 15.6, d-dimer is 24.3, sodium is 131 with a potassium of 4.9, BUN is 26 and creatinine is 0.59. CRP is 4.3. Patient continues on baricitinib along with dexamethasone and vitamin and zinc supplements and will continue. 08/05/2021 Patient is evaluated today in the ICU, he is maintained on a BiPAP at the time of my assessment. Plan is to titrate oxygen as needed. Chest x-ray today reveals persistent left greater than right bilateral multifocal opacities. Labs are reviewed, White blood cell count 25.2. His d-dimer today is elevated at 29.09 which is slightly increased. LDH is 2286, CRP 5.8, pro calcitonin 0.07. Sodium today is 131. Vital signs include blood pressure 113/62. Respirations are 20s. Patient has remained afebrile. Swallow evaluation was conducted again today for follow-up for dysphagia intervention, that recommendations are for dysphagia 1. With honey thick liquid, supervision with basic needs. Patient needs one-to-one feeding with cues to swallow. Patient continues on baricitinib along with dexamethasone and vitamin and zinc supplements and will continue. Patient was evaluated by neurology today who feels as increasing right-sided weakness. Brain CT of the head initially reveals embolic ischemic insults. A repeat brain CT has been ordered to compare. We will hold off any BARBARA at this time per neurology and cardiology recommendations. 08/06/2021 Pt is alert and oriented x 3 at the time of my examination. He reports breathing better, able to take a deep breath. He is now on a 5L HF cannula with oxygen saturations in the mid 90s. BP today is 122/76, HR 88, afebrile. Labs are reviewed today, include a WBC of 24.6, sodium of 132, B of 24, Cr 0.57. Inflammatory markers continue to be elevated. Neurology has signed off today. Pt was able to lift left upper extremity off the bed however drifted and touched the bed after 2 seconds, his hand grasp was unequal with left weaker than right. A repeat brain CT was ordered for increasing upper extremity weakness. 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 There is no acute bleed. Patient continues on baricitinib, dexamethasone, zinc, and vitamins and will continue. 08/07/2021 Patient was seen and evaluated in follow-up as morning continues to be closely monitored in the ICU. Patient stating his shortness of breath mildly worsened and was on 5 L and now 7 L high flow. White blood count elevated at 25.4 and hemoglobin is stable at 14.4, sodium is 132 with a potassium of 3.9 current creatinine is 0.56. Magnesium is 2.0. Multiple medical consultations including neurology, infectious disease, and pulmonary following. Chest x-ray today shows bilateral groundglass consolidation slightly worsened in the interval. Patient is fatigued although arousable and responding appropriately. Left-sided weakness continues. Patient continues on IV dexamethasone along with vitamin and zinc supplements continued on anti-coagulant in the form of Eliquis and Baricitinib. Patient was also maintained on sliding scale along with long acting insulin although sugars have been low and actually required one amp of dextrose for a sugar less than 50 and will discontinue long-acting and continue sliding scale as needed. 08/08/2021 Patient is seen and evaluated in follow-up currently placed on BiPAP as patient oxygen saturations continued to deteriorate and patient was more lethargic. Patient continues to be in the ICU being closely monitored. BiPAP FiO2 is 40%. Patient is continued on vitamin and zinc supplements along with baricitinib, IV dexamethasone and eliquis and will continue. Pulmonary following closely. Patient continues to be lethargic with continued poor oral intake an NG tube was placed and dietitian consulted to begin tube feeds. Recommend Accu-Cheks and use sliding scale as needed. Chest x-ray this morning shows persistent left greater than right bilateral multifocal and confluent opacification his consistent with COVID-19 and no significant change from previous. 08/09/2021 Patient is seen and evaluated this morning and having a brief episode of atrial fibrillation with RVR with a heart rate of 130's -150's and cardizem was ordered although IV lasix dose was given and oral metoprolol most recently and appears to have converted back in sinus rhythm. Patient was extremely restless and attempting to take bipap mask off. Patient was extremely anxious and expressing concern of having to have a bowel movement. Multiple medical consultations following. Medications being adjusted by cardiology and increasing metoprolol dose. Patient is maintained on eliquis and Baricitinib along with steroids and vitamin supplements. Continue tube feeds for nutritional support. 08/10/2021 Patient was seen and evaluated in follow-up this morning continues to be closely monitored in the ICU with multiple medical consultations including pulmonary tire duster, infectious disease, and neurology has been asked to reevaluate the patient as patient continues to have intermittent periods of confusion but doesn't appear to be a change from previous. Patient is extremely lethargic and maintained on BiPAP although is arousable but continues to fatigue easily and follows sleep. Repeat CT of the brain has been ordered and pending. Patient continues on gentle IV hydration along with vitamin and zinc supplements and is maintained on oral anticoagulant along with IV dexamethasone. Patient is tolerating tube feedings via NG tube and blood sugars now mildly elevated and will continue sliding scale and Accu-Cheks before meals and at bedtime. White blood count is elevated at 24.4 and hemoglobin is 12.4, sodium remains low at 131 with a potassium of 3.9 and current creatinine is 0.59. LFTs within normal limits and pro calcitonin is 0.05. Chest x-ray this morning shows continued patchy peripheral bilateral Covid pneumonia with some slight improvement on the left. 08/11/2021 Patient is seen this morning continues to be closely monitored in the ICU. Patient was bipap dependent and recently being transitioned to high flow nasal cannula and currently on 6L HF and per nursing staff continuing to wean as tolerated. Patient was able to work with physical therapy today and continues to be extremely weak. Multiple medical consultations following. Per nursing staff, patient will continue in the ICU with possible downgrade to the selective unit in the next few days. Blood sugars have been increasing and will continue sliding scale and will add long acting. 08/12/2021 Patient seen in the ICU, he is an overflow patient. O2 requirements down to 5 L nasal cannula today, he is alert but confused. Sodium level coming up to 131, he continues on Decadron, blood sugars 162 this afternoon. Chest x-ray repeated today showing bilateral groundglass opacities, no pneumothorax or pleural effusion. Continues in Nico feedings, NG tube in place. No fevers, hemodynamically stable 08/13/2021 Patient seen on reevaluation he is transferred out of the ICU and on the medical floor. He is more alert today, following commands able to move his extremities when prompted 2. He remains nothing by mouth, speech to reevaluate if he fails he may require PEG tube placement. He is currently on 5 L nasal cannula saturating above 90%, afebrile, hemodynamically stable 08/14/2021 Patient is seen and evaluated currently on 4 S. and has recently been placed back on airvo for acute respiratory distress and in a team was called. Patient was in A. fib RVR also and given a dose of IV push Lopressor. Patient is extremely lethargic and difficult to arouse today. Plan was for speech to reevaluate the patient today to wean off tube feeds and consult has been placed for possible PEG tube with general surgery. Repeat brain CT somewhat a previous exam with no acute changes noted. Chest x-ray shows some pulmonary edema and pleural fluid that is not significantly different from previous exam and clearing of soft tissue air on the left lateral chest wall compared to old exam and patient will receive a dose of IV Lasix. IV fluids discontinued. 08/15/2021 Patient is seen in follow-up this morning recently brought back to the ICU as respiratory status deteriorated and patient is back on BiPAP with an FiO2 of 60%. Patient continues to be extremely lethargic and minimally arousable and continued on tube feeds. Patient's blood pressures have been low and maintained on IV hydration. Multiple medical consultations following including pulmonary tire duster and cardiology. Patient continued on IV dexamethasone along with oral anticoagulant and vitamin and zinc supplements and most recently started on IV Zosyn. Recommend to continue monitoring blood sugars closely as there was an episode of hypoglycemia last night and continued on sliding scale along with long-acting. Infectious disease also following. Chest x-ray today shows bilateral peripheral increased opacification is consistent with COVID-19 infection with no significant change from previous day. Family wishes for patient to remain full code with no intubation and will attempt again to address CODE STATUS as prognosis remains extremely guarded and poor. Patient also placed back on Cardizem drip for atrial fibrillation with RVR. 08/16/2021 Patient was seen and evaluated in follow-up this morning continues to be in the ICU being closely monitored. Patient is extremely lethargic and somewhat arousable following simple commands but falls asleep easily. Patient continues on BiPAP at 50%. Currently sinus rhythm and maintained on Lopressor 100 mg twice daily and Cardizem drip discontinued. Patient also continues on Eliquis which will be on hold as consult was placed for PEG tube placement as family would like to proceed with this. Patient is maintained on tube feedings via NG tube and surgery is planning for PEG tube in the morning. Patient also continues on IV dexamethasone along with vitamin and zinc supplements and IV Zosyn as well. Recommend continuing gentle IV hydration of normal saline at 75 ML per hour. Chest x-ray today which was personally reviewed by me shows bilateral lung infiltrates greater on the left possibly compatible with atypical pneumonia. 08/17/2021 Patient is seen in the follow-up continues to be in the ICU lethargic minimally arousable. Patient has been transitioned to high flow nasal cannula and will continue with BiPAP on standby and at night. Patient was started on 10 L and currently on 5 L high flow nasal cannula with oxygen saturation of 98%. Anticoagulant on hold currently as patient is scheduled to receive a PEG tube today for continued feedings. Patient does have an NG tube which can be discontinued once the PEG tube is approved for use by surgery. Multiple medical consultations including cardiology, pulmonary, surgery, neurology following. Patient continues on IV dexamethasone along with vitamin and zinc supplements and continues on IV Zosyn. Patient having elevated blood pressures and will discontinue IV fluids. 08/18/2021 Patient is seen this morning and has been started on peg tube feedings. Patient continues to be closely monitored in the ICU with multiple medical consultations following. Patient continues to be minimally responsive and per nursing staff more confused and neurology asked to reevaluate the patient. EEG and CT brain ordered. Patient had some hypoglycemic episodes and ok per surgery to start tube feeds. Will continue accuchecks and close monitoring. Will also continue sliding scale along with long acting insulin. . 08/21/2021 Patient is seen this morning continues to be obtunded and unresponsive. Family met with hospice and is agreeable to make comfort measures only. Patient is continued on tube feeds which will be discontinued. Prognosis remains extremely poor and guarded. 08/22/2021 Patient is seen and evaluated this morning with [facility] at the bedside along with and patient is maintained on a morphine drip at 4 mL per hour and appears comfortable. Patient continues to be unresponsive and obtunded. Tube feedings have been discontinued. Patient is maintained on comfort measures only per family request. We'll continue to monitor closely. Review of systems: Unable to obtain as patient is obtunded and minimally responsive All medications have been reviewed Active Medications Atropine Sulfate (Atropine Ophth Soln 1% 5ml Btl) 2 drops SUBLINGUAL Q4HR PRN PRN Reason: Excess Secretions Last Admin: 08/21/21 15:00 Dose: 2 drops Documented by: Glycopyrrolate (Glycopyrrolate 0.2 Mg/Ml 2 Ml Vial) 0.1 mg IVP Q6HR PRN PRN Reason: Excess Secretions Last Admin: 08/21/21 18:19 Dose: 0.1 mg Documented by: Haloperidol Lactate (Haloperidol Lactate 5 Mg/Ml 1 Ml Vial) 2 mg IM Q4HR PRN PRN Reason: Agitation Hyoscyamine (Hyoscyamine Oral Drops 1.875 Mg/15 Ml Bottle) 0.125 mg PO Q4HR PRN PRN Reason: Secretions Last Admin: 08/22/21 04:13 Dose: 0.125 mg Documented by: Morphine Sulfate 100 mg/ (Sodium Chloride) 102 mls @ 1.02 mls/hr IV .Q24H CARISSA; Protocol Last Titration: 08/22/21 04:19 Dose: 4 mg/hr, 4.08 mls/hr Documented by: Morphine Sulfate (Morphine Sulfate 2 Mg/Ml Syringe) 2 mg IV Q15M PRN PRN Reason: Breakthrough Pain Ondansetron HCl (Ondansetron 4 Mg/2 Ml Vial) 4 mg IVP Q8HR PRN PRN Reason: Nausea/emesis Scopolamine (Scopolamine 1.5mg/72hr Patch) 1 patch TRANSDERM Q72H CARISSA Last Admin: 08/21/21 14:49 Dose: 1 patch Documented by: PHYSICAL EXAMINATION: GENERAL: The patient is alert and oriented x0, obtunded and unresponsive. Appears comfortable in no acute distress. HEENT: Pupils are round and pinpoint. EOMI. No scleral icterus. No conjunctival pallor. Normocephalic, atraumatic. No pharyngeal erythema. No thyromegaly. CARDIOVASCULAR: S1 and S2 muffled. PULMONARY: Diffuse bilateral coarse rhonchi and scattered crackles noted with diminished breath sounds at the bases, gurgling noted in the throat of increased oral secretions, mildly improved with Robinul ABDOMEN: Soft, nontender, nondistended, normoactive bowel sounds. No palpable organomegaly. MUSCULOSKELETAL: No joint swelling or deformity. EXTREMITIES: No cyanosis, clubbing, or pedal edema. NEUROLOGICAL: obtunded, unresponsive SKIN: No rashes. Assessment and plan: -Acute Covid 19 bilateral interstitial pneumonia with acute hypoxic respiratory failure, secondary to COVID-19 pneumonia, present on admission -Right frontoparietal acute infarct in the MCA distribution measuring 6x4cm as noted on CT 08/18/2021, new compared to previous exam, causing acute on chronic toxic encephalopathy as well as acute stroke -Possible metabolic encephalopathy -Dysphagia, high risk for aspiration -Status post PEG tube placement -Atrial fibrillation with rapid ventricular rate new onset -elevated d-dimer with no evidence of PE on CTA -Mild protein calorie malnutrition secondary to poor oral intake due to respiratory status deterioration -altered mental status possibly secondary to COVID-19 encephalopathy or possibly secondary to bilateral hemispheric stroke -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 [facility] has not with the family and flipped the patient to GIP with comfort measures only. Patient maintained on morphine drip at 4 mL per hour and [facility] at the bedside titrating. Patient continues to be obtunded and unresponsive and not following any commands. Patient appears comfortable. Prognosis remains extremely poor and guarded. We will monitor closely. Objective - Vital Signs Vital signs: Vital Signs Temp 98.6 F 08/22/21 08:00 Pulse 79 08/22/21 08:00 Resp 16 08/22/21 08:00 BP 145/52 08/22/21 08:00 Pulse Ox 96 08/22/21 08:00 Intake & Output 08/21/21 08/22/21 08/22/21 18:59 06:59 18:59 Intake Total 25.806 Output Total 400 Balance -374.194 Weight 60.1 kg Intake: Intake, IV Titration 25.806 Amount Morphine Sulfate (100 mg/ 25.806 2 ml) 100 mg In Sodium Chloride 0.9% 100 ml @ 1 MG/HR 1.02 mls/hr IV . Q24H [facility] Rx#:[id number] Output: Urine 400 Other: Voiding Method Indwelling Catheter # Bowel Movements 1
[2021-08-22] MEDS: MORPHINE SULFATE (100 MG/2 ML) 100 MG in SODIUM CHLORIDE 0.9% 100 ML IV SCH ×2 (16:22→23:43)
[2021-08-23 07:40] LABS: Glucose,Whole Blood 115 mg/dL (75-99)
--- NOTE | 2021-08-23 11:39 | P.PN ---
Subjective Progress Note Date: 08/23/21 Patient is a 75 -year-old pleasant male was transferred from a outside hospital for atrial fibrillation with rapid ventricular rate. Patient is presently on therapeutic dose of Lovenox. Also has highly elevated INR. His baseline creatinine is unknown but his present creatinine is around the 0.66, patient is receiving half-normal saline at 75 mL per hour patient is also on Remdesivir, presently on 15 L of oxygen, CT of the chest did not show any pulmonary embolism but did show diffuse infiltrate patient was having symptoms for about 4 days patient was unable to provide much of history to me patient is too tired and weak. Patient is not tolerating any by mouth medications at this time because o f which patient was started on IV Cardizem patient usually takes metoprolol 25 twice a day. Patient doesn't have any history of congestive heart failure. Patient was started on Decadron as well. Patient has highly elevated d-dimer. 08/01/2021 Patient is seen in follow-up continues to be closely monitored in the ICU. Patient is extremely lethargic although is arousable and intermittently res ponding appropriately to questions and commands. Patient continues to have delayed response and altered mental status and CT of the brain was ordered. Neurology has been consulted and pulmonary along with urology following closely. She continues on IV heparin along with IV Cardizem. white blood count is 14.1, hemoglobin is stable at 16.1, d-dimer is above 34.10, sodium is 141 with a potassium of 4.5 and current creatinine is 0.61. LDH is 30-55 and CRP is 6.3. TSH is 0.112 and free T4 is 4.06. patient is maintained on 15 L high flow nasal cannula along with occasional intermittent nonrebreather. Patient is afebrile. 08/02/2021 Patient is seen in follow up this morning and is being closely monitored in the ICU with multiple medical consultations following including pulmonary, infectio us disease, cardiology, and neurology. CT of the brain recommending MRI and this is ordered and pending. Patient is on 13L HF nasal cannula. Mentation slowly improving and answering questions appropriately. Patient continues to be extremely weak and fatigues easily. Cardiology planning to transition cardizem to oral and possibly starting eliquis. 08/03/2021 Patient is seen and evaluated in follow-up this morning and patient continues to improve although continues to be extremely weak and fatigued. Multiple medical consultations following an neurology recommending BARBARA although was reviewed by cardiology and no plans for BARBARA at this time as MRI along with CT confirms embolic stroke with MRI showing a few scattered areas of restricted diffusion in the inferior cerebellar hemispheres bilaterally with scattered areas of restricted diffusion present in the cerebellum, occipital lobes, as well as bilateral parietal lobes. Patient continued on subcutaneous heparin with discussion of possibly starting Eliquis in the next 2 days. Patient has been started on Brilinta an neurology is following closely. Speech has evaluated the patient and recommending continuing the patient with nothing by mouth except medications as the swallow eval was not able to be completed due to extreme fatigue and lethargy. Speech will reevaluate the patient once more alert and awake. White blood count today is 17.6 with a hemoglobin of 14.6, d-dimer is elevated at 27.78, sodium is 135 with a potassium of 3.6, BUN is 33 and creatinine is 0.59. Blood sugars are being closely monitored. Repeat x-ray and labs along with inflammatory markers in the a.m. Continuing to wean as tolerated and patient is maintained on 9 L high flow and maintaining oxygen saturations of 97%. Patient with atrial fibrillation currently rate controlled with metoprolol and cardiology is following. 08/04/2021 Patient is seen in follow-up this morning continues to be in the ICU and continues to drift often fall asleep easily although mentation has improved. Patient states the year as 1990 but also states he knows that is wrong and states he is currently in the hospital for Covid but was unaware of any recent stroke. Right side food mixer repairer strength 4/5 improving although patient is unable to completely lift extremity and left side food mixer repairer strength continues to be weak 2/5 and completely unable to lift this extremity. Multiple medical consultations including neurology, cardiology, punchboard inserter along with infectious disease following closely. Patient being resumed on Eliquis and Brilinta has been discontinued. Chest x-ray today shows diffuse mild infiltrates greater on the left that can be compatible with atypical pneumonia. Awaiting repeat swallow eval today with the possibility of TPN for enteral nutrition as patient has been nothing by mouth. Patient continues on 11 L high flow and recommend to wean as tolerated. White blood count today is 27.3 with a hemoglobin of 15.6, d-dimer is 24.3, sodium is 131 with a potassium of 4.9, BUN is 26 and creatinine is 0.59. CRP is 4.3. Patient continues on baricitinib along with dexamethasone and vitamin and zinc supplements and will continue. 08/05/2021 Patient is evaluated today in the ICU, he is maintained on a BiPAP at the time of my assessment. Plan is to titrate oxygen as needed. Chest x-ray today reveals persistent left greater than right bilateral multifocal opacities. Labs are reviewed, White blood cell count 25.2. His d-dimer today is elevated at 29.09 which is slightly increased. LDH is 2286, CRP 5.8, pro calcitonin 0.07. Sodium today is 131. Vital signs include blood pressure 113/62. Respirations are 20s. Patient has remained afebrile. Swallow evaluation was conducted again today for follow-up for dysphagia intervention, that recommendations are for dysphagia 1. With honey thick liquid, supervision with basic needs. Patient needs one-to-one feeding with cues to swallow. Patient continues on baricitinib along with dexamethasone and vitamin and zinc supplements and will continue. Patient was evaluated by neurology today who feels as increasing right-sided weakness. Brain CT of the head initially reveals embolic ischemic insults. A repeat brain CT has been ordered to compare. We will hold off any BARBARA at this time per neurology and cardiology recommendations. 08/06/2021 Pt is alert and oriented x 3 at the time of my examination. He reports breathing better, able to take a deep breath. He is now on a 5L HF cannula with oxygen saturations in the mid 90s. BP today is 122/76, HR 88, afebrile. Labs are reviewed today, include a WBC of 24.6, sodium of 132, B of 24, Cr 0.57. Inflammatory markers continue to be elevated. Neurology has signed off today. Pt was able to lift left upper extremity off the bed however drifted and touched the bed after 2 seconds, his hand grasp was unequal with left weaker than right. A repeat brain CT was ordered for increasing upper extremity weakness. 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 There is no acute bleed. Patient continues on baricitinib, dexamethasone, zinc, and vitamins and will continue. 08/07/2021 Patient was seen and evaluated in follow-up as morning continues to be closely monitored in the ICU. Patient stating his shortness of breath mildly worsened and was on 5 L and now 7 L high flow. White blood count elevated at 25.4 and hemoglobin is stable at 14.4, sodium is 132 with a potassium of 3.9 current creatinine is 0.56. Magnesium is 2.0. Multiple medical consultations including neurology, infectious disease, and pulmonary following. Chest x-ray today shows bilateral groundglass consolidation slightly worsened in the interval. Patient is fatigued although arousable and responding appropriately. Left-sided weakness continues. Patient continues on IV dexamethasone along with vitamin and zinc supplements continued on anti-coagulant in the form of Eliquis and Baricitinib. Patient was also maintained on sliding scale along with long acting insulin although sugars have been low and actually required one amp of dextrose for a sugar less than 50 and will discontinue long-acting and continue sliding scale as needed. 08/08/2021 Patient is seen and evaluated in follow-up currently placed on BiPAP as patient oxygen saturations continued to deteriorate and patient was more lethargic. Patient continues to be in the ICU being closely monitored. BiPAP FiO2 is 40%. Patient is continued on vitamin and zinc supplements along with baricitinib, IV dexamethasone and eliquis and will continue. Pulmonary following closely. Patient continues to be lethargic with continued poor oral intake an NG tube was placed and dietitian consulted to begin tube feeds. Recommend Accu-Cheks and use sliding scale as needed. Chest x-ray this morning shows persistent left greater than right bilateral multifocal and confluent opacification his consistent with COVID-19 and no significant change from previous. 08/09/2021 Patient is seen and evaluated this morning and having a brief episode of atrial fibrillation with RVR with a heart rate of 130's -150's and cardizem was ordered although IV lasix dose was given and oral metoprolol most recently and appears to have converted back in sinus rhythm. Patient was extremely restless and attempting to take bipap mask off. Patient was extremely anxious and expressing concern of having to have a bowel movement. Multiple medical consultations following. Medications being adjusted by cardiology and increasing metoprolol dose. Patient is maintained on eliquis and Baricitinib along with steroids and vitamin supplements. Continue tube feeds for nutritional support. 08/10/2021 Patient was seen and evaluated in follow-up this morning continues to be closely monitored in the ICU with multiple medical consultations including pulmonary punchboard inserter, infectious disease, and neurology has been asked to reevaluate the patient as patient continues to have intermittent periods of confusion but doesn't appear to be a change from previous. Patient is extremely lethargic and maintained on BiPAP although is arousable but continues to fatigue easily and follows sleep. Repeat CT of the brain has been ordered and pending. Patient continues on gentle IV hydration along with vitamin and zinc supplements and is maintained on oral anticoagulant along with IV dexamethasone. Patient is tolerating tube feedings via NG tube and blood sugars now mildly elevated and will continue sliding scale and Accu-Cheks before meals and at bedtime. White blood count is elevated at 24.4 and hemoglobin is 12.4, sodium remains low at 131 with a potassium of 3.9 and current creatinine is 0.59. LFTs within normal limits and pro calcitonin is 0.05. Chest x-ray this morning shows continued patchy peripheral bilateral Covid pneumonia with some slight improvement on the left. 08/11/2021 Patient is seen this morning continues to be closely monitored in the ICU. Patient was bipap dependent and recently being transitioned to high flow nasal cannula and currently on 6L HF and per nursing staff continuing to wean as tolerated. Patient was able to work with physical therapy today and continues to be extremely weak. Multiple medical consultations following. Per nursing staff, patient will continue in the ICU with possible downgrade to the selective unit in the next few days. Blood sugars have been increasing and will continue sliding scale and will add long acting. 08/12/2021 Patient seen in the ICU, he is an overflow patient. O2 requirements down to 5 L nasal cannula today, he is alert but confused. Sodium level coming up to 131, he continues on Decadron, blood sugars 162 this afternoon. Chest x-ray repeated today showing bilateral groundglass opacities, no pneumothorax or pleural effusion. Continues in Nico feedings, NG tube in place. No fevers, hemodynamically stable 08/13/2021 Patient seen on reevaluation he is transferred out of the ICU and on the medical floor. He is more alert today, following commands able to move his extremities when prompted 2. He remains nothing by mouth, speech to reevaluate if he fails he may require PEG tube placement. He is currently on 5 L nasal cannula saturating above 90%, afebrile, hemodynamically stable 08/14/2021 Patient is seen and evaluated currently on 4 S. and has recently been placed back on airvo for acute respiratory distress and in a team was called. Patient was in A. fib RVR also and given a dose of IV push Lopressor. Patient is extremely lethargic and difficult to arouse today. Plan was for speech to reevaluate the patient today to wean off tube feeds and consult has been placed for possible PEG tube with general surgery. Repeat brain CT somewhat a previous exam with no acute changes noted. Chest x-ray shows some pulmonary edema and pleural fluid that is not significantly different from previous exam and clearing of soft tissue air on the left lateral chest wall compared to old exam and patient will receive a dose of IV Lasix. IV fluids discontinued. 08/15/2021 Patient is seen in follow-up this morning recently brought back to the ICU as respiratory status deteriorated and patient is back on BiPAP with an FiO2 of 60%. Patient continues to be extremely lethargic and minimally arousable and continued on tube feeds. Patient's blood pressures have been low and maintained on IV hydration. Multiple medical consultations following including pulmonary punchboard inserter and cardiology. Patient continued on IV dexamethasone along with oral anticoagulant and vitamin and zinc supplements and most recently started on IV Zosyn. Recommend to continue monitoring blood sugars closely as there was an episode of hypoglycemia last night and continued on sliding scale along with long-acting. Infectious disease also following. Chest x-ray today shows bilateral peripheral increased opacification is consistent with COVID-19 infection with no significant change from previous day. Family wishes for patient to remain full code with no intubation and will attempt again to address CODE STATUS as prognosis remains extremely guarded and poor. Patient also placed back on Cardizem drip for atrial fibrillation with RVR. 08/16/2021 Patient was seen and evaluated in follow-up this morning continues to be in the ICU being closely monitored. Patient is extremely lethargic and somewhat arousable following simple commands but falls asleep easily. Patient continues on BiPAP at 50%. Currently sinus rhythm and maintained on Lopressor 100 mg twice daily and Cardizem drip discontinued. Patient also continues on Eliquis which will be on hold as consult was placed for PEG tube placement as family would like to proceed with this. Patient is maintained on tube feedings via NG tube and surgery is planning for PEG tube in the morning. Patient also continues on IV dexamethasone along with vitamin and zinc supplements and IV Zosyn as well. Recommend continuing gentle IV hydration of normal saline at 75 ML per hour. Chest x-ray today which was personally reviewed by me shows bilateral lung infiltrates greater on the left possibly compatible with atypical pneumonia. 08/17/2021 Patient is seen in the follow-up continues to be in the ICU lethargic minimally arousable. Patient has been transitioned to high flow nasal cannula and will continue with BiPAP on standby and at night. Patient was started on 10 L and currently on 5 L high flow nasal cannula with oxygen saturation of 98%. Anticoagulant on hold currently as patient is scheduled to receive a PEG tube today for continued feedings. Patient does have an NG tube which can be discontinued once the PEG tube is approved for use by surgery. Multiple medical consultations including cardiology, pulmonary, surgery, neurology following. Patient continues on IV dexamethasone along with vitamin and zinc supplements and continues on IV Zosyn. Patient having elevated blood pressures and will discontinue IV fluids. 08/18/2021 Patient is seen this morning and has been started on peg tube feedings. Patient continues to be closely monitored in the ICU with multiple medical consultations following. Patient continues to be minimally responsive and per nursing staff more confused and neurology asked to reevaluate the patient. EEG and CT brain ordered. Patient had some hypoglycemic episodes and ok per surgery to start tube feeds. Will continue accuchecks and close monitoring. Will also continue sliding scale along with long acting insulin. . 08/21/2021 Patient is seen this morning continues to be obtunded and unresponsive. Family met with hospice and is agreeable to make comfort measures only. Patient is continued on tube feeds which will be discontinued. Prognosis remains extremely poor and guarded. 08/22/2021 Patient is seen and evaluated this morning with [facility] at the bedside along with and patient is maintained on a morphine drip at 4 mL per hour and appears comfortable. Patient continues to be unresponsive and obtunded. Tube feedings have been discontinued. Patient is maintained on comfort measures only per family request. We'll continue to monitor closely. 08/23/2021 Patient is seen this morning with Marc-Stoke respirations and continues to be unresponsive. Patient is on morphine drip which is being increased to 6 mL per hour as patient is moaning and wincing and appears to be slightly uncomfortable. Discussed with nursing staff about titrating as directed and increasing as needed. All questions and concerns were answered with family. Will continue to monitor closely Review of systems: Unable to obtain as patient is obtunded and minimally responsive All medications have been reviewed Active Medications Atropine Sulfate (Atropine Ophth Soln 1% 5ml Btl) 2 drops SUBLINGUAL Q4HR PRN PRN Reason: Excess Secretions Last Admin: 08/21/21 15:00 Dose: 2 drops Documented by: Glycopyrrolate (Glycopyrrolate 0.2 Mg/Ml 2 Ml Vial) 0.1 mg IVP Q6HR PRN PRN Reason: Excess Secretions Last Admin: 08/21/21 18:19 Dose: 0.1 mg Documented by: Haloperidol Lactate (Haloperidol Lactate 5 Mg/Ml 1 Ml Vial) 2 mg IM Q4HR PRN PRN Reason: Agitation Hyoscyamine (Hyoscyamine Oral Drops 1.875 Mg/15 Ml Bottle) 0.125 mg PO Q4HR PRN PRN Reason: Secretions Last Admin: 08/22/21 04:13 Dose: 0.125 mg Documented by: Morphine Sulfate 100 mg/ (Sodium Chloride) 102 mls @ 1.02 mls/hr IV .Q24H CARISSA; Protocol Last Titration: 08/23/21 09:34 Dose: 5.88 mg/hr, 6 mls/hr Documented by: Morphine Sulfate (Morphine Sulfate 2 Mg/Ml Syringe) 2 mg IV Q15M PRN PRN Reason: Breakthrough Pain Ondansetron HCl (Ondansetron 4 Mg/2 Ml Vial) 4 mg IVP Q8HR PRN PRN Reason: Nausea/emesis Scopolamine (Scopolamine 1.5mg/72hr Patch) 1 patch TRANSDERM Q72H CARISSA Last Admin: 08/21/21 14:49 Dose: 1 patch Documented by: PHYSICAL EXAMINATION: GENERAL: The patient is alert and oriented x0, obtunded and unresponsive. Appears mildly uncomfortable and medication being adjusted and increased at this time HEENT: Pupils are round and pinpoint. EOMI. No scleral icterus. No conjunctival pallor. Normocephalic, atraumatic. No pharyngeal erythema. No thyromegaly. Oral mucosa is dry CARDIOVASCULAR: S1 and S2 muffled. PULMONARY: Diffuse bilateral coarse rhonchi and scattered crackles noted with diminished breath sounds at the bases ABDOMEN: Soft, thin, nontender, nondistended, normoactive bowel sounds. No palpable organomegaly. MUSCULOSKELETAL: No joint swelling or deformity. EXTREMITIES: No cyanosis, clubbing, or pedal edema. NEUROLOGICAL: obtunded, unresponsive SKIN: No rashes. Assessment and plan: -Acute Covid 19 bilateral interstitial pneumonia with acute hypoxic respiratory failure, secondary to COVID-19 pneumonia, present on admission -Right frontoparietal acute infarct in the MCA distribution measuring 6x4cm as noted on CT 08/18/2021, new compared to previous exam, causing acute on chronic toxic encephalopathy as well as acute stroke -Possible metabolic encephalopathy -Dysphagia, high risk for aspiration -Status post PEG tube placement -Atrial fibrillation with rapid ventricular rate new onset -elevated d-dimer with no evidence of PE on CTA -Mild protein calorie malnutrition secondary to poor oral intake due to respiratory status deterioration -altered mental status possibly secondary to COVID-19 encephalopathy or possibly secondary to bilateral hemispheric stroke -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 [facility] following closely as patient is GIP with comfort measures only. Patient maintained on morphine drip at 6 mL per hour and [facility] at the bedside titrating. Patient continues to be obtunded and unresponsive and not following any commands. Patient appears mildly uncomfortable and morphine being titrated up. Prognosis remains extremely poor and guarded. We will monitor closely. Objective - Vital Signs Vital signs: Vital Signs Temp 98.8 F 08/23/21 07:41 Pulse 116 H 08/23/21 07:41 Resp 20 08/23/21 08:00 BP 134/61 08/23/21 07:41 Pulse Ox 94 L 08/23/21 08:32 Intake & Output 08/22/21 08/23/21 08/23/21 18:59 06:59 18:59 Intake Total 76.194 33.252 Output Total 575 Balance -498.806 33.252 Intake: Intake, IV Titration 76.194 33.252 Amount Morphine Sulfate (100 mg/ 76.194 33.252 2 ml) 100 mg In Sodium Chloride 0.9% 100 ml @ 1 MG/HR 1.02 mls/hr IV . Q24H [facility] Rx#:[id number] Output: Urine 575 Other: Voiding Method Indwelling Catheter Indwelling Catheter Indwelling Catheter - Labs Labs: Abnormal Lab Results - Last 24 Hours (Table) 08/23/21 Range/Units 07:37 POC Glucose (mg/dL) 115 H (75-99) mg/dL
[2021-08-23] MEDS: ACETAMINOPHEN SUPPOSITORY 650 MG SUPP RECTAL PRN (15:19)
[2021-08-23 16:03] VITALS: RESP 10
[2021-08-23 20:14] LABS: Glucose,Whole Blood 171 mg/dL (75-99)
[2021-08-23] MEDS: MORPHINE SULFATE (100 MG/2 ML) 100 MG in SODIUM CHLORIDE 0.9% 100 ML IV SCH (22:15)
[2021-08-24] MEDS: SCOPOLAMINE 1.5MG/72HR PATCH TRANSDERM SCH (11:46)
--- NOTE | 2021-08-24 13:22 | P.PN ---
Subjective Progress Note Date: 08/24/21 Patient is a 75 -year-old pleasant male was transferred from a outside hospital for atrial fibrillation with rapid ventricular rate. Patient is presently on therapeutic dose of Lovenox. Also has highly elevated INR. His baseline creatinine is unknown but his present creatinine is around the 0.66, patient is receiving half-normal saline at 75 mL per hour patient is also on Remdesivir, presently on 15 L of oxygen, CT of the chest did not show any pulmonary embolism but did show diffuse infiltrate patient was having symptoms for about 4 days patient was unable to provide much of history to me patient is too tired and weak. Patient is not tolerating any by mouth medications at this time because o f which patient was started on IV Cardizem patient usually takes metoprolol 25 twice a day. Patient doesn't have any history of congestive heart failure. Patient was started on Decadron as well. Patient has highly elevated d-dimer. 08/01/2021 Patient is seen in follow-up continues to be closely monitored in the ICU. Patient is extremely lethargic although is arousable and intermittently res ponding appropriately to questions and commands. Patient continues to have delayed response and altered mental status and CT of the brain was ordered. Neurology has been consulted and pulmonary along with urology following closely. She continues on IV heparin along with IV Cardizem. white blood count is 14.1, hemoglobin is stable at 16.1, d-dimer is above 34.10, sodium is 141 with a potassium of 4.5 and current creatinine is 0.61. LDH is 30-55 and CRP is 6.3. TSH is 0.112 and free T4 is 4.06. patient is maintained on 15 L high flow nasal cannula along with occasional intermittent nonrebreather. Patient is afebrile. 08/02/2021 Patient is seen in follow up this morning and is being closely monitored in the ICU with multiple medical consultations following including pulmonary, infectio us disease, cardiology, and neurology. CT of the brain recommending MRI and this is ordered and pending. Patient is on 13L HF nasal cannula. Mentation slowly improving and answering questions appropriately. Patient continues to be extremely weak and fatigues easily. Cardiology planning to transition cardizem to oral and possibly starting eliquis. 08/03/2021 Patient is seen and evaluated in follow-up this morning and patient continues to improve although continues to be extremely weak and fatigued. Multiple medical consultations following an neurology recommending BARBARA although was reviewed by cardiology and no plans for BARBARA at this time as MRI along with CT confirms embolic stroke with MRI showing a few scattered areas of restricted diffusion in the inferior cerebellar hemispheres bilaterally with scattered areas of restricted diffusion present in the cerebellum, occipital lobes, as well as bilateral parietal lobes. Patient continued on subcutaneous heparin with discussion of possibly starting Eliquis in the next 2 days. Patient has been started on Brilinta an neurology is following closely. Speech has evaluated the patient and recommending continuing the patient with nothing by mouth except medications as the swallow eval was not able to be completed due to extreme fatigue and lethargy. Speech will reevaluate the patient once more alert and awake. White blood count today is 17.6 with a hemoglobin of 14.6, d-dimer is elevated at 27.78, sodium is 135 with a potassium of 3.6, BUN is 33 and creatinine is 0.59. Blood sugars are being closely monitored. Repeat x-ray and labs along with inflammatory markers in the a.m. Continuing to wean as tolerated and patient is maintained on 9 L high flow and maintaining oxygen saturations of 97%. Patient with atrial fibrillation currently rate controlled with metoprolol and cardiology is following. 08/04/2021 Patient is seen in follow-up this morning continues to be in the ICU and continues to drift often fall asleep easily although mentation has improved. Patient states the year as 1990 but also states he knows that is wrong and states he is currently in the hospital for Covid but was unaware of any recent stroke. 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 Multiple medical consultations including neurology, cardiology, larriman helper along with infectious disease following closely. Patient being resumed on Eliquis and Brilinta has been discontinued. Chest x-ray today shows diffuse mild infiltrates greater on the left that can be compatible with atypical pneumonia. Awaiting repeat swallow eval today with the possibility of TPN for enteral nutrition as patient has been nothing by mouth. Patient continues on 11 L high flow and recommend to wean as tolerated. White blood count today is 27.3 with a hemoglobin of 15.6, d-dimer is 24.3, sodium is 131 with a potassium of 4.9, BUN is 26 and creatinine is 0.59. CRP is 4.3. Patient continues on baricitinib along with dexamethasone and vitamin and zinc supplements and will continue. 08/05/2021 Patient is evaluated today in the ICU, he is maintained on a BiPAP at the time of my assessment. Plan is to titrate oxygen as needed. Chest x-ray today reveals persistent left greater than right bilateral multifocal opacities. Labs are reviewed, White blood cell count 25.2. His d-dimer today is elevated at 29.09 which is slightly increased. LDH is 2286, CRP 5.8, pro calcitonin 0.07. Sodium today is 131. Vital signs include blood pressure 113/62. Respirations are 20s. Patient has remained afebrile. Swallow evaluation was conducted again today for follow-up for dysphagia intervention, that recommendations are for dysphagia 1. With honey thick liquid, supervision with basic needs. Patient needs one-to-one feeding with cues to swallow. Patient continues on baricitinib along with dexamethasone and vitamin and zinc supplements and will continue. Patient was evaluated by neurology today who feels as increasing right-sided weakness. Brain CT of the head initially reveals embolic ischemic insults. A repeat brain CT has been ordered to compare. We will hold off any BARBARA at this time per neurology and cardiology recommendations. 08/06/2021 Pt is alert and oriented x 3 at the time of my examination. He reports breathing better, able to take a deep breath. He is now on a 5L HF cannula with oxygen saturations in the mid 90s. BP today is 122/76, HR 88, afebrile. Labs are reviewed today, include a WBC of 24.6, sodium of 132, B of 24, Cr 0.57. Inflammatory markers continue to be elevated. Neurology has signed off today. Pt was able to lift left upper extremity off the bed however drifted and touched the bed after 2 seconds, his hand grasp was unequal with left weaker than right. A repeat brain CT was ordered for increasing upper extremity weakness. 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 There is no acute bleed. Patient continues on baricitinib, dexamethasone, zinc, and vitamins and will continue. 08/07/2021 Patient was seen and evaluated in follow-up as morning continues to be closely monitored in the ICU. Patient stating his shortness of breath mildly worsened and was on 5 L and now 7 L high flow. White blood count elevated at 25.4 and hemoglobin is stable at 14.4, sodium is 132 with a potassium of 3.9 current creatinine is 0.56. Magnesium is 2.0. Multiple medical consultations including neurology, infectious disease, and pulmonary following. Chest x-ray today shows bilateral groundglass consolidation slightly worsened in the interval. Patient is fatigued although arousable and responding appropriately. Left-sided weakness continues. Patient continues on IV dexamethasone along with vitamin and zinc supplements continued on anti-coagulant in the form of Eliquis and Baricitinib. Patient was also maintained on sliding scale along with long acting insulin although sugars have been low and actually required one amp of dextrose for a sugar less than 50 and will discontinue long-acting and continue sliding scale as needed. 08/08/2021 Patient is seen and evaluated in follow-up currently placed on BiPAP as patient oxygen saturations continued to deteriorate and patient was more lethargic. Patient continues to be in the ICU being closely monitored. BiPAP FiO2 is 40%. Patient is continued on vitamin and zinc supplements along with baricitinib, IV dexamethasone and eliquis and will continue. Pulmonary following closely. Patient continues to be lethargic with continued poor oral intake an NG tube was placed and dietitian consulted to begin tube feeds. Recommend Accu-Cheks and use sliding scale as needed. Chest x-ray this morning shows persistent left greater than right bilateral multifocal and confluent opacification his consistent with COVID-19 and no significant change from previous. 08/09/2021 Patient is seen and evaluated this morning and having a brief episode of atrial fibrillation with RVR with a heart rate of 130's -150's and cardizem was ordered although IV lasix dose was given and oral metoprolol most recently and appears to have converted back in sinus rhythm. Patient was extremely restless and attempting to take bipap mask off. Patient was extremely anxious and expressing concern of having to have a bowel movement. Multiple medical consultations following. Medications being adjusted by cardiology and increasing metoprolol dose. Patient is maintained on eliquis and Baricitinib along with steroids and vitamin supplements. Continue tube feeds for nutritional support. 08/10/2021 Patient was seen and evaluated in follow-up this morning continues to be closely monitored in the ICU with multiple medical consultations including pulmonary larriman helper, infectious disease, and neurology has been asked to reevaluate the patient as patient continues to have intermittent periods of confusion but doesn't appear to be a change from previous. Patient is extremely lethargic and maintained on BiPAP although is arousable but continues to fatigue easily and follows sleep. Repeat CT of the brain has been ordered and pending. Patient continues on gentle IV hydration along with vitamin and zinc supplements and is maintained on oral anticoagulant along with IV dexamethasone. Patient is tolerating tube feedings via NG tube and blood sugars now mildly elevated and will continue sliding scale and Accu-Cheks before meals and at bedtime. White blood count is elevated at 24.4 and hemoglobin is 12.4, sodium remains low at 131 with a potassium of 3.9 and current creatinine is 0.59. LFTs within normal limits and pro calcitonin is 0.05. Chest x-ray this morning shows continued patchy peripheral bilateral Covid pneumonia with some slight improvement on the left. 08/11/2021 Patient is seen this morning continues to be closely monitored in the ICU. Patient was bipap dependent and recently being transitioned to high flow nasal cannula and currently on 6L HF and per nursing staff continuing to wean as tolerated. Patient was able to work with physical therapy today and continues to be extremely weak. Multiple medical consultations following. Per nursing staff, patient will continue in the ICU with possible downgrade to the selective unit in the next few days. Blood sugars have been increasing and will continue sliding scale and will add long acting. 08/12/2021 Patient seen in the ICU, he is an overflow patient. O2 requirements down to 5 L nasal cannula today, he is alert but confused. Sodium level coming up to 131, he continues on Decadron, blood sugars 162 this afternoon. Chest x-ray repeated today showing bilateral groundglass opacities, no pneumothorax or pleural effusion. Continues in Nico feedings, NG tube in place. No fevers, hemodynamically stable 08/13/2021 Patient seen on reevaluation he is transferred out of the ICU and on the medical floor. He is more alert today, following commands able to move his extremities when prompted 2. He remains nothing by mouth, speech to reevaluate if he fails he may require PEG tube placement. He is currently on 5 L nasal cannula saturating above 90%, afebrile, hemodynamically stable 08/14/2021 Patient is seen and evaluated currently on 4 S. and has recently been placed back on airvo for acute respiratory distress and in a team was called. Patient was in A. fib RVR also and given a dose of IV push Lopressor. Patient is extremely lethargic and difficult to arouse today. Plan was for speech to reevaluate the patient today to wean off tube feeds and consult has been placed for possible PEG tube with general surgery. Repeat brain CT somewhat a previous exam with no acute changes noted. Chest x-ray shows some pulmonary edema and pleural fluid that is not significantly different from previous exam and clearing of soft tissue air on the left lateral chest wall compared to old exam and patient will receive a dose of IV Lasix. IV fluids discontinued. 08/15/2021 Patient is seen in follow-up this morning recently brought back to the ICU as respiratory status deteriorated and patient is back on BiPAP with an FiO2 of 60%. Patient continues to be extremely lethargic and minimally arousable and continued on tube feeds. Patient's blood pressures have been low and maintained on IV hydration. Multiple medical consultations following including pulmonary larriman helper and cardiology. Patient continued on IV dexamethasone along with oral anticoagulant and vitamin and zinc supplements and most recently started on IV Zosyn. Recommend to continue monitoring blood sugars closely as there was an episode of hypoglycemia last night and continued on sliding scale along with long-acting. Infectious disease also following. Chest x-ray today shows bilateral peripheral increased opacification is consistent with COVID-19 infection with no significant change from previous day. Family wishes for patient to remain full code with no intubation and will attempt again to address CODE STATUS as prognosis remains extremely guarded and poor. Patient also placed back on Cardizem drip for atrial fibrillation with RVR. 08/16/2021 Patient was seen and evaluated in follow-up this morning continues to be in the ICU being closely monitored. Patient is extremely lethargic and somewhat arousable following simple commands but falls asleep easily. Patient continues on BiPAP at 50%. Currently sinus rhythm and maintained on Lopressor 100 mg twice daily and Cardizem drip discontinued. Patient also continues on Eliquis which will be on hold as consult was placed for PEG tube placement as family would like to proceed with this. Patient is maintained on tube feedings via NG tube and surgery is planning for PEG tube in the morning. Patient also continues on IV dexamethasone along with vitamin and zinc supplements and IV Zosyn as well. Recommend continuing gentle IV hydration of normal saline at 75 ML per hour. Chest x-ray today which was personally reviewed by me shows bilateral lung infiltrates greater on the left possibly compatible with atypical pneumonia. 08/17/2021 Patient is seen in the follow-up continues to be in the ICU lethargic minimally arousable. Patient has been transitioned to high flow nasal cannula and will continue with BiPAP on standby and at night. Patient was started on 10 L and currently on 5 L high flow nasal cannula with oxygen saturation of 98%. Anticoagulant on hold currently as patient is scheduled to receive a PEG tube today for continued feedings. Patient does have an NG tube which can be discontinued once the PEG tube is approved for use by surgery. Multiple medical consultations including cardiology, pulmonary, surgery, neurology following. Patient continues on IV dexamethasone along with vitamin and zinc supplements and continues on IV Zosyn. Patient having elevated blood pressures and will discontinue IV fluids. 08/18/2021 Patient is seen this morning and has been started on peg tube feedings. Patient continues to be closely monitored in the ICU with multiple medical consultations following. Patient continues to be minimally responsive and per nursing staff more confused and neurology asked to reevaluate the patient. EEG and CT brain ordered. Patient had some hypoglycemic episodes and ok per surgery to start tube feeds. Will continue accuchecks and close monitoring. Will also continue sliding scale along with long acting insulin. . 08/21/2021 Patient is seen this morning continues to be obtunded and unresponsive. Family met with hospice and is agreeable to make comfort measures only. Patient is continued on tube feeds which will be discontinued. Prognosis remains extremely poor and guarded. 08/22/2021 Patient is seen and evaluated this morning with [facility] at the bedside along with and patient is maintained on a morphine drip at 4 mL per hour and appears comfortable. Patient continues to be unresponsive and obtunded. Tube feedings have been discontinued. Patient is maintained on comfort measures only per family request. We'll continue to monitor closely. 08/23/2021 Patient is seen this morning with Marc-Stoke respirations and continues to be unresponsive. Patient is on morphine drip which is being increased to 6 mL per hour as patient is moaning and wincing and appears to be slightly uncomfortable. Discussed with nursing staff about titrating as directed and increasing as needed. All questions and concerns were answered with family. Will continue to monitor closely 08/24/2021 Patient is seen and evaluated this morning appears comfortable and is maintained on morphine drip at 6 mL per hour. Patient continues with comfort measures only. Family members at the bedside including and son and discussed extensively with them about treatment plan moving forward and continued monitoring. [facility] following and continuing with pain management and titration. Review of systems: Unable to obtain as patient is obtunded and unresponsive All medications have been reviewed Active Medications Acetaminophen (Acetaminophen Suppository 650 Mg Supp) 650 mg RECTAL Q6HR PRN PRN Reason: Fever and/ or Pain Last Admin: 08/23/21 15:19 Dose: 650 mg Documented by: Atropine Sulfate (Atropine Ophth Soln 1% 5ml Btl) 2 drops SUBLINGUAL Q4HR PRN PRN Reason: Excess Secretions Last Admin: 08/21/21 15:00 Dose: 2 drops Documented by: Glycopyrrolate (Glycopyrrolate 0.2 Mg/Ml 2 Ml Vial) 0.1 mg IVP Q6HR PRN PRN Reason: Excess Secretions Last Admin: 08/21/21 18:19 Dose: 0.1 mg Documented by: Haloperidol Lactate (Haloperidol Lactate 5 Mg/Ml 1 Ml Vial) 2 mg IM Q4HR PRN PRN Reason: Agitation Hyoscyamine (Hyoscyamine Oral Drops 1.875 Mg/15 Ml Bottle) 0.125 mg PO Q4HR PRN PRN Reason: Secretions Last Admin: 08/22/21 04:13 Dose: 0.125 mg Documented by: Morphine Sulfate 100 mg/ (Sodium Chloride) 102 mls @ 1.02 mls/hr IV .Q24H CARISSA; Protocol Last Admin: 08/23/21 22:15 Dose: 5.88 mg/hr, 6 mls/hr Documented by: Morphine Sulfate (Morphine Sulfate 2 Mg/Ml Syringe) 2 mg IV Q15M PRN PRN Reason: Breakthrough Pain Ondansetron HCl (Ondansetron 4 Mg/2 Ml Vial) 4 mg IVP Q8HR PRN PRN Reason: Nausea/emesis Scopolamine (Scopolamine 1.5mg/72hr Patch) 1 patch TRANSDERM Q72H CARISSA Last Admin: 08/24/21 11:46 Dose: 1 patch Documented by: PHYSICAL EXAMINATION: GENERAL: The patient is alert and oriented x0, obtunded and unresponsive. Appears more comfortable today HEENT: Pupils are round and pinpoint. EOMI. No scleral icterus. No conjunctival pallor. Normocephalic, atraumatic. No pharyngeal erythema. No thyromegaly. Oral mucosa is dry CARDIOVASCULAR: S1 and S2 muffled. PULMONARY: Diffuse bilateral coarse rhonchi and scattered crackles noted with diminished breath sounds at the bases ABDOMEN: Soft, thin, nontender, nondistended, normoactive bowel sounds. No palpable organomegaly. MUSCULOSKELETAL: No joint swelling or deformity. EXTREMITIES: No cyanosis, clubbing, or pedal edema. NEUROLOGICAL: obtunded, unresponsive SKIN: No rashes. Assessment and plan: -Acute Covid 19 bilateral interstitial pneumonia with acute hypoxic respiratory failure, secondary to COVID-19 pneumonia, present on admission -Right frontoparietal acute infarct in the MCA distribution measuring 6x4cm as noted on CT 08/18/2021, new compared to previous exam, causing acute on chronic toxic encephalopathy as well as acute stroke -Possible metabolic encephalopathy -Dysphagia, high risk for aspiration -Status post PEG tube placement -Atrial fibrillation with rapid ventricular rate new onset -elevated d-dimer with no evidence of PE on CTA -Mild protein calorie malnutrition secondary to poor oral intake due to respiratory status deterioration -altered mental status possibly secondary to COVID-19 encephalopathy or possibly secondary to bilateral hemispheric stroke -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 [facility] following closely as patient is GIP with comfort measures only. Patient maintained on morphine drip at 6 mL per hour and [facility] at the bedside titrating. Patient continues to be obtunded and unresponsive and not following any commands. Patient appears more comfortable and morphine being titrated up. Prognosis remains extremely poor and guarded. We will monitor closely. Objective - Vital Signs Vital signs: Vital Signs Temp 97.8 F 08/23/21 17:56 Pulse 115 H 08/23/21 13:29 Resp 10 L 08/23/21 20:00 BP 123/53 08/23/21 13:29 Pulse Ox 96 08/23/21 13:29 Intake & Output 08/23/21 08/24/21 08/24/21 18:59 06:59 18:59 Intake Total 89.922 60.078 Output Total 500 Balance -410.078 60.078 Intake: IV 48 Morphine Sulfate (100 mg/ 48 2 ml) 100 mg In Sodium Chloride 0.9% 100 ml @ 1 MG/HR 1.02 mls/hr IV . Q24H [facility] Rx#:[id number] Intake, IV Titration 41.922 60.078 Amount Morphine Sulfate (100 mg/ 41.922 60.078 2 ml) 100 mg In Sodium Chloride 0.9% 100 ml @ 1 MG/HR 1.02 mls/hr IV . Q24H [facility] Rx#:[id number] Output: Urine 500 Uretheral ([place]ogan) 500 Other: Voiding Method Indwelling Catheter Indwelling Catheter - Labs Labs: Abnormal Lab Results - Last 24 Hours (Table) 08/23/21 Range/Units 20:12 POC Glucose (mg/dL) 171 H (75-99) mg/dL
[2021-08-24] MEDS: ACETAMINOPHEN SUPPOSITORY 650 MG SUPP RECTAL PRN ×2 (14:51→21:08)
[2021-08-24 15:02] LABS: Glucose,Whole Blood 202 mg/dL (75-99)
[2021-08-24 15:08] VITALS: BP 154/62; PULSE 118; TEMP 100.1
[2021-08-24] MEDS: MORPHINE SULFATE (100 MG/2 ML) 100 MG in SODIUM CHLORIDE 0.9% 100 ML IV SCH (15:18)
[2021-08-25] MEDS: MORPHINE SULFATE (100 MG/2 ML) 100 MG in SODIUM CHLORIDE 0.9% 100 ML IV SCH ×2 (08:34→23:52)
--- NOTE | 2021-08-25 16:43 | P.PN ---
Subjective Progress Note Date: 08/25/21 Patient is a 75 -year-old pleasant male was transferred from a outside hospital for atrial fibrillation with rapid ventricular rate. Patient is presently on therapeutic dose of Lovenox. Also has highly elevated INR. His baseline creatinine is unknown but his present creatinine is around the 0.66, patient is receiving half-normal saline at 75 mL per hour patient is also on Remdesivir, presently on 15 L of oxygen, CT of the chest did not show any pulmonary embolism but did show diffuse infiltrate patient was having symptoms for about 4 days patient was unable to provide much of history to me patient is too tired and weak. Patient is not tolerating any by mouth medications at this time because o f which patient was started on IV Cardizem patient usually takes metoprolol 25 twice a day. Patient doesn't have any history of congestive heart failure. Patient was started on Decadron as well. Patient has highly elevated d-dimer. 08/01/2021 Patient is seen in follow-up continues to be closely monitored in the ICU. Patient is extremely lethargic although is arousable and intermittently res ponding appropriately to questions and commands. Patient continues to have delayed response and altered mental status and CT of the brain was ordered. Neurology has been consulted and pulmonary along with urology following closely. She continues on IV heparin along with IV Cardizem. white blood count is 14.1, hemoglobin is stable at 16.1, d-dimer is above 34.10, sodium is 141 with a potassium of 4.5 and current creatinine is 0.61. LDH is 30-55 and CRP is 6.3. TSH is 0.112 and free T4 is 4.06. patient is maintained on 15 L high flow nasal cannula along with occasional intermittent nonrebreather. Patient is afebrile. 08/02/2021 Patient is seen in follow up this morning and is being closely monitored in the ICU with multiple medical consultations following including pulmonary, infectio us disease, cardiology, and neurology. CT of the brain recommending MRI and this is ordered and pending. Patient is on 13L HF nasal cannula. Mentation slowly improving and answering questions appropriately. Patient continues to be extremely weak and fatigues easily. Cardiology planning to transition cardizem to oral and possibly starting eliquis. 08/03/2021 Patient is seen and evaluated in follow-up this morning and patient continues to improve although continues to be extremely weak and fatigued. Multiple medical consultations following an neurology recommending BARBARA although was reviewed by cardiology and no plans for BARBARA at this time as MRI along with CT confirms embolic stroke with MRI showing a few scattered areas of restricted diffusion in the inferior cerebellar hemispheres bilaterally with scattered areas of restricted diffusion present in the cerebellum, occipital lobes, as well as bilateral parietal lobes. Patient continued on subcutaneous heparin with discussion of possibly starting Eliquis in the next 2 days. Patient has been started on Brilinta an neurology is following closely. Speech has evaluated the patient and recommending continuing the patient with nothing by mouth except medications as the swallow eval was not able to be completed due to extreme fatigue and lethargy. Speech will reevaluate the patient once more alert and awake. White blood count today is 17.6 with a hemoglobin of 14.6, d-dimer is elevated at 27.78, sodium is 135 with a potassium of 3.6, BUN is 33 and creatinine is 0.59. Blood sugars are being closely monitored. Repeat x-ray and labs along with inflammatory markers in the a.m. Continuing to wean as tolerated and patient is maintained on 9 L high flow and maintaining oxygen saturations of 97%. Patient with atrial fibrillation currently rate controlled with metoprolol and cardiology is following. 08/04/2021 Patient is seen in follow-up this morning continues to be in the ICU and continues to drift often fall asleep easily although mentation has improved. Patient states the year as 1990 but also states he knows that is wrong and states he is currently in the hospital for Covid but was unaware of any recent stroke. Right side flakeboard line tender strength 4/5 improving although patient is unable to completely lift extremity and left side flakeboard line tender strength continues to be weak 2/5 and completely unable to lift this extremity. Multiple medical consultations including neurology, cardiology, television tube inspector along with infectious disease following closely. Patient being resumed on Eliquis and Brilinta has been discontinued. Chest x-ray today shows diffuse mild infiltrates greater on the left that can be compatible with atypical pneumonia. Awaiting repeat swallow eval today with the possibility of TPN for enteral nutrition as patient has been nothing by mouth. Patient continues on 11 L high flow and recommend to wean as tolerated. White blood count today is 27.3 with a hemoglobin of 15.6, d-dimer is 24.3, sodium is 131 with a potassium of 4.9, BUN is 26 and creatinine is 0.59. CRP is 4.3. Patient continues on baricitinib along with dexamethasone and vitamin and zinc supplements and will continue. 08/05/2021 Patient is evaluated today in the ICU, he is maintained on a BiPAP at the time of my assessment. Plan is to titrate oxygen as needed. Chest x-ray today reveals persistent left greater than right bilateral multifocal opacities. Labs are reviewed, White blood cell count 25.2. His d-dimer today is elevated at 29.09 which is slightly increased. LDH is 2286, CRP 5.8, pro calcitonin 0.07. Sodium today is 131. Vital signs include blood pressure 113/62. Respirations are 20s. Patient has remained afebrile. Swallow evaluation was conducted again today for follow-up for dysphagia intervention, that recommendations are for dysphagia 1. With honey thick liquid, supervision with basic needs. Patient needs one-to-one feeding with cues to swallow. Patient continues on baricitinib along with dexamethasone and vitamin and zinc supplements and will continue. Patient was evaluated by neurology today who feels as increasing right-sided weakness. Brain CT of the head initially reveals embolic ischemic insults. A repeat brain CT has been ordered to compare. We will hold off any BARBARA at this time per neurology and cardiology recommendations. 08/06/2021 Pt is alert and oriented x 3 at the time of my examination. He reports breathing better, able to take a deep breath. He is now on a 5L HF cannula with oxygen saturations in the mid 90s. BP today is 122/76, HR 88, afebrile. Labs are reviewed today, include a WBC of 24.6, sodium of 132, B of 24, Cr 0.57. Inflammatory markers continue to be elevated. Neurology has signed off today. Pt was able to lift left upper extremity off the bed however drifted and touched the bed after 2 seconds, his hand grasp was unequal with left weaker than right. A repeat brain CT was ordered for increasing upper extremity weakness. 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 There is no acute bleed. Patient continues on baricitinib, dexamethasone, zinc, and vitamins and will continue. 08/07/2021 Patient was seen and evaluated in follow-up as morning continues to be closely monitored in the ICU. Patient stating his shortness of breath mildly worsened and was on 5 L and now 7 L high flow. White blood count elevated at 25.4 and hemoglobin is stable at 14.4, sodium is 132 with a potassium of 3.9 current creatinine is 0.56. Magnesium is 2.0. Multiple medical consultations including neurology, infectious disease, and pulmonary following. Chest x-ray today shows bilateral groundglass consolidation slightly worsened in the interval. Patient is fatigued although arousable and responding appropriately. Left-sided weakness continues. Patient continues on IV dexamethasone along with vitamin and zinc supplements continued on anti-coagulant in the form of Eliquis and Baricitinib. Patient was also maintained on sliding scale along with long acting insulin although sugars have been low and actually required one amp of dextrose for a sugar less than 50 and will discontinue long-acting and continue sliding scale as needed. 08/08/2021 Patient is seen and evaluated in follow-up currently placed on BiPAP as patient oxygen saturations continued to deteriorate and patient was more lethargic. Patient continues to be in the ICU being closely monitored. BiPAP FiO2 is 40%. Patient is continued on vitamin and zinc supplements along with baricitinib, IV dexamethasone and eliquis and will continue. Pulmonary following closely. Patient continues to be lethargic with continued poor oral intake an NG tube was placed and dietitian consulted to begin tube feeds. Recommend Accu-Cheks and use sliding scale as needed. Chest x-ray this morning shows persistent left greater than right bilateral multifocal and confluent opacification his consistent with COVID-19 and no significant change from previous. 08/09/2021 Patient is seen and evaluated this morning and having a brief episode of atrial fibrillation with RVR with a heart rate of 130's -150's and cardizem was ordered although IV lasix dose was given and oral metoprolol most recently and appears to have converted back in sinus rhythm. Patient was extremely restless and attempting to take bipap mask off. Patient was extremely anxious and expressing concern of having to have a bowel movement. Multiple medical consultations following. Medications being adjusted by cardiology and increasing metoprolol dose. Patient is maintained on eliquis and Baricitinib along with steroids and vitamin supplements. Continue tube feeds for nutritional support. 08/10/2021 Patient was seen and evaluated in follow-up this morning continues to be closely monitored in the ICU with multiple medical consultations including pulmonary television tube inspector, infectious disease, and neurology has been asked to reevaluate the patient as patient continues to have intermittent periods of confusion but doesn't appear to be a change from previous. Patient is extremely lethargic and maintained on BiPAP although is arousable but continues to fatigue easily and follows sleep. Repeat CT of the brain has been ordered and pending. Patient continues on gentle IV hydration along with vitamin and zinc supplements and is maintained on oral anticoagulant along with IV dexamethasone. Patient is tolerating tube feedings via NG tube and blood sugars now mildly elevated and will continue sliding scale and Accu-Cheks before meals and at bedtime. White blood count is elevated at 24.4 and hemoglobin is 12.4, sodium remains low at 131 with a potassium of 3.9 and current creatinine is 0.59. LFTs within normal limits and pro calcitonin is 0.05. Chest x-ray this morning shows continued patchy peripheral bilateral Covid pneumonia with some slight improvement on the left. 08/11/2021 Patient is seen this morning continues to be closely monitored in the ICU. Patient was bipap dependent and recently being transitioned to high flow nasal cannula and currently on 6L HF and per nursing staff continuing to wean as tolerated. Patient was able to work with physical therapy today and continues to be extremely weak. Multiple medical consultations following. Per nursing staff, patient will continue in the ICU with possible downgrade to the selective unit in the next few days. Blood sugars have been increasing and will continue sliding scale and will add long acting. 08/12/2021 Patient seen in the ICU, he is an overflow patient. O2 requirements down to 5 L nasal cannula today, he is alert but confused. Sodium level coming up to 131, he continues on Decadron, blood sugars 162 this afternoon. Chest x-ray repeated today showing bilateral groundglass opacities, no pneumothorax or pleural effusion. Continues in Nico feedings, NG tube in place. No fevers, hemodynamically stable 08/13/2021 Patient seen on reevaluation he is transferred out of the ICU and on the medical floor. He is more alert today, following commands able to move his extremities when prompted 2. He remains nothing by mouth, speech to reevaluate if he fails he may require PEG tube placement. He is currently on 5 L nasal cannula saturating above 90%, afebrile, hemodynamically stable 08/14/2021 Patient is seen and evaluated currently on 4 S. and has recently been placed back on airvo for acute respiratory distress and in a team was called. Patient was in A. fib RVR also and given a dose of IV push Lopressor. Patient is extremely lethargic and difficult to arouse today. Plan was for speech to reevaluate the patient today to wean off tube feeds and consult has been placed for possible PEG tube with general surgery. Repeat brain CT somewhat a previous exam with no acute changes noted. Chest x-ray shows some pulmonary edema and pleural fluid that is not significantly different from previous exam and clearing of soft tissue air on the left lateral chest wall compared to old exam and patient will receive a dose of IV Lasix. IV fluids discontinued. 08/15/2021 Patient is seen in follow-up this morning recently brought back to the ICU as respiratory status deteriorated and patient is back on BiPAP with an FiO2 of 60%. Patient continues to be extremely lethargic and minimally arousable and continued on tube feeds. Patient's blood pressures have been low and maintained on IV hydration. Multiple medical consultations following including pulmonary television tube inspector and cardiology. Patient continued on IV dexamethasone along with oral anticoagulant and vitamin and zinc supplements and most recently started on IV Zosyn. Recommend to continue monitoring blood sugars closely as there was an episode of hypoglycemia last night and continued on sliding scale along with long-acting. Infectious disease also following. Chest x-ray today shows bilateral peripheral increased opacification is consistent with COVID-19 infection with no significant change from previous day. Family wishes for patient to remain full code with no intubation and will attempt again to address CODE STATUS as prognosis remains extremely guarded and poor. Patient also placed back on Cardizem drip for atrial fibrillation with RVR. 08/16/2021 Patient was seen and evaluated in follow-up this morning continues to be in the ICU being closely monitored. Patient is extremely lethargic and somewhat arousable following simple commands but falls asleep easily. Patient continues on BiPAP at 50%. Currently sinus rhythm and maintained on Lopressor 100 mg twice daily and Cardizem drip discontinued. Patient also continues on Eliquis which will be on hold as consult was placed for PEG tube placement as family would like to proceed with this. Patient is maintained on tube feedings via NG tube and surgery is planning for PEG tube in the morning. Patient also continues on IV dexamethasone along with vitamin and zinc supplements and IV Zosyn as well. Recommend continuing gentle IV hydration of normal saline at 75 ML per hour. Chest x-ray today which was personally reviewed by me shows bilateral lung infiltrates greater on the left possibly compatible with atypical pneumonia. 08/17/2021 Patient is seen in the follow-up continues to be in the ICU lethargic minimally arousable. Patient has been transitioned to high flow nasal cannula and will continue with BiPAP on standby and at night. Patient was started on 10 L and currently on 5 L high flow nasal cannula with oxygen saturation of 98%. Anticoagulant on hold currently as patient is scheduled to receive a PEG tube today for continued feedings. Patient does have an NG tube which can be discontinued once the PEG tube is approved for use by surgery. Multiple medical consultations including cardiology, pulmonary, surgery, neurology following. Patient continues on IV dexamethasone along with vitamin and zinc supplements and continues on IV Zosyn. Patient having elevated blood pressures and will discontinue IV fluids. 08/18/2021 Patient is seen this morning and has been started on peg tube feedings. Patient continues to be closely monitored in the ICU with multiple medical consultations following. Patient continues to be minimally responsive and per nursing staff more confused and neurology asked to reevaluate the patient. EEG and CT brain ordered. Patient had some hypoglycemic episodes and ok per surgery to start tube feeds. Will continue accuchecks and close monitoring. Will also continue sliding scale along with long acting insulin. . 08/21/2021 Patient is seen this morning continues to be obtunded and unresponsive. Family met with hospice and is agreeable to make comfort measures only. Patient is continued on tube feeds which will be discontinued. Prognosis remains extremely poor and guarded. 08/22/2021 Patient is seen and evaluated this morning with [facility] at the bedside along with and patient is maintained on a morphine drip at 4 mL per hour and appears comfortable. Patient continues to be unresponsive and obtunded. Tube feedings have been discontinued. Patient is maintained on comfort measures only per family request. We'll continue to monitor closely. 08/23/2021 Patient is seen this morning with [facility] respirations and continues to be unresponsive. Patient is on morphine drip which is being increased to 6 mL per hour as patient is moaning and wincing and appears to be slightly uncomfortable. Discussed with nursing staff about titrating as directed and increasing as needed. All questions and concerns were answered with family. Will continue to monitor closely 08/24/2021 Patient is seen and evaluated this morning appears comfortable and is maintained on morphine drip at 6 mL per hour. Patient continues with comfort measures only. Family members at the bedside including and son and discussed extensively with them about treatment plan moving forward and continued monitoring. [facility] following and continuing with pain management and titration. 08/25/2021 patient is again seen in follow-up with no acute overnight issues. Patient's at the bedside states uneventful night and patient appeared rested and continues to be unresponsive. Patient is maintained on morphine drip at 6 mL per hour and [facility] hospice following closely. Will continue to monitor with comfort measures only. Review of systems: Unable to obtain as patient is obtunded and unresponsive All medications have been reviewed Active Medications Acetaminophen (Acetaminophen Suppository 650 Mg Supp) 650 mg RECTAL Q6HR PRN PRN Reason: Fever and/ or Pain Last Admin: 08/24/21 21:08 Dose: 650 mg Documented by: Atropine Sulfate (Atropine Ophth Soln 1% 5ml Btl) 2 drops SUBLINGUAL Q4HR PRN PRN Reason: Excess Secretions Last Admin: 08/21/21 15:00 Dose: 2 drops Documented by: Glycopyrrolate (Glycopyrrolate 0.2 Mg/Ml 2 Ml Vial) 0.1 mg IVP Q6HR PRN PRN Reason: Excess Secretions Last Admin: 08/21/21 18:19 Dose: 0.1 mg Documented by: Haloperidol Lactate (Haloperidol Lactate 5 Mg/Ml 1 Ml Vial) 2 mg IM Q4HR PRN PRN Reason: Agitation Hyoscyamine (Hyoscyamine Oral Drops 1.875 Mg/15 Ml Bottle) 0.125 mg PO Q4HR PRN PRN Reason: Secretions Last Admin: 08/22/21 04:13 Dose: 0.125 mg Documented by: Morphine Sulfate 100 mg/ (Sodium Chloride) 102 mls @ 1.02 mls/hr IV .Q24H [facility]; Protocol Last Admin: 08/25/21 08:34 Dose: 5.88 mg/hr, 6 mls/hr Documented by: Morphine Sulfate (Morphine Sulfate 2 Mg/Ml Syringe) 2 mg IV Q15M PRN PRN Reason: Breakthrough Pain Ondansetron HCl (Ondansetron 4 Mg/2 Ml Vial) 4 mg IVP Q8HR PRN PRN Reason: Nausea/emesis Scopolamine (Scopolamine 1.5mg/72hr Patch) 1 patch TRANSDERM Q72H [facility] Last Admin: 08/24/21 11:46 Dose: 1 patch Documented by: PHYSICAL EXAMINATION: GENERAL: The patient is alert and oriented x0, obtunded and unresponsive. Appears more comfortable today HEENT: Pupils are round and pinpoint. EOMI. No scleral icterus. No conjunctival pallor. Normocephalic, atraumatic. No pharyngeal erythema. No thyromegaly. Oral mucosa is dry CARDIOVASCULAR: S1 and S2 muffled. PULMONARY: Diffuse bilateral coarse rhonchi and scattered crackles noted with diminished breath sounds at the bases ABDOMEN: Soft, thin, nontender, nondistended, normoactive bowel sounds. No palpable organomegaly. MUSCULOSKELETAL: No joint swelling or deformity. EXTREMITIES: No cyanosis, clubbing, or pedal edema. NEUROLOGICAL: obtunded, unresponsive SKIN: No rashes. Assessment and plan: -Acute Covid 19 bilateral interstitial pneumonia with acute hypoxic respiratory failure, secondary to COVID-19 pneumonia, present on admission -Right frontoparietal acute infarct in the MCA distribution measuring 6x4cm as noted on CT 08/18/2021, new compared to previous exam, causing acute on chronic toxic encephalopathy as well as acute stroke -Possible metabolic encephalopathy -Dysphagia, high risk for aspiration -Status post PEG tube placement -Atrial fibrillation with rapid ventricular rate new onset -elevated d-dimer with no evidence of PE on CTA -Mild protein calorie malnutrition secondary to poor oral intake due to respiratory status deterioration -altered mental status possibly secondary to COVID-19 encephalopathy or possibly secondary to bilateral hemispheric stroke -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 [facility] hospice following closely as patient is GIP with comfort measures only. Patient maintained on morphine drip at 6 mL per hour and [facility] hospice following. Patient continues to be obtunded and unresponsive and not following any commands. Patient appears more comfortable with morphine drip. Prognosis remains extremely poor and guarded. We will monitor closely. Objective - Vital Signs Vital signs: Vital Signs Temp 100.1 F H 08/24/21 13:49 Pulse 118 H 08/24/21 13:49 Resp 10 L 08/24/21 20:00 BP 154/62 08/24/21 13:49 Pulse Ox 98 08/24/21 13:49 Intake & Output 08/24/21 08/25/21 08/25/21 18:59 06:59 18:59 Intake Total 102 102 Output Total 900 100 Balance -798 -100 102 Intake: Intake, IV Titration 102 102 Amount Morphine Sulfate (100 mg/ 102 102 2 ml) 100 mg In Sodium Chloride 0.9% 100 ml @ 1 MG/HR 1.02 mls/hr IV . Q24H [facility] Rx#:[id number] Output: Urine 900 100 Other: Voiding Method Indwelling Catheter - Labs Labs: Abnormal Lab Results - Last 24 Hours (Table) 08/24/21 Range/Units 14:52 POC Glucose (mg/dL) 202 H (75-99) mg/dL
--- NOTE | 2021-08-26 15:02 | P.PN ---
Subjective Patient is a 75 -year-old pleasant male was transferred from a outside hospital for atrial fibrillation with rapid ventricular rate. Patient is presently on therapeutic dose of Lovenox. Also has highly elevated INR. His baseline creatinine is unknown but his present creatinine is around the 0.66, patient is receiving half-normal saline at 75 mL per hour patient is also on Remdesivir, presently on 15 L of oxygen, CT of the chest did not show any pulmonary embolism but did show diffuse infiltrate patient was having symptoms for about 4 days patient was unable to provide much of history to me patient is too tired and weak. Patient is not tolerating any by mouth medications at this time because of which patient was started on IV Cardizem patient usually takes metoprolol 25 twice a day. Patient doesn't have any history of congestive heart failure. Patient was started on Decadron as well. Patient has highly elevated d-dimer. Patient is seen and evaluated this morning appears comfortable and is maintained on morphine drip at 6 mL per hour. Patient continues with comfort measures only. Family members at the bedside including and son and discussed extensively with them about treatment plan moving forward and continued monitoring. [facility] following and continuing with pain management and titration. 08/25/2021 patient is again seen in follow-up with no acute overnight issues. Patient's at the bedside states uneventful night and patient appeared rested and continues to be unresponsive. Patient is maintained on morphine drip at 6 mL per hour and [facility] following closely. Will continue to monitor with comfort measures only. 08/26/2021 Comfortable, unresponsive. Continue with hospice orders. Continue with morphine drip family at bedside. Questions answered Objective - Vital Signs Vital signs: Vital Signs Temp 100.1 F H 08/24/21 13:49 Pulse 118 H 08/24/21 13:49 Resp 10 L 08/25/21 20:00 BP 154/62 08/24/21 13:49 Pulse Ox 98 08/24/21 13:49 Intake & Output 08/25/21 08/26/21 08/26/21 18:59 06:59 18:59 Intake Total 102 91.8 Output Total 900 Balance -798 91.8 Intake: Intake, IV Titration 102 91.8 Amount Morphine Sulfate (100 mg/ 102 91.8 2 ml) 100 mg In Sodium Chloride 0.9% 100 ml @ 1 MG/HR 1.02 mls/hr IV . Q24H [facility] Rx#:[id number] Output: Urine 900 Other: Voiding Method Indwelling Catheter Indwelling Catheter - Exam -GENERAL: The patient is obtunded and responsive and cachectic HEENT: Pupils are round and equally reacting to light. EOMI. No scleral icterus. No conjunctival pallor. Normocephalic, atraumatic. No pharyngeal erythema. No thyromegaly. CARDIOVASCULAR: S1 and S2 present. No murmurs, rubs, or gallops. PULMONARY: Chest is clear to auscultation, no wheezing or crackles. ABDOMEN: Soft, nontender, nondistended, normoactive bowel sounds. No palpable organomegaly. MUSCULOSKELETAL: No joint swelling or deformity. EXTREMITIES: No cyanosis, clubbing, or pedal edema. NEUROLOGICAL: Gross neurological examination did not reveal any focal deficits. SKIN: No rashes. no petechiae. 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 measuring 6x4cm as noted on CT 08/18/2021, new compared to previous exam, causing acute on chronic toxic encephalopathy as well as acute stroke -Possible metabolic encephalopathy -Dysphagia, high risk for aspiration -Status post PEG tube placement -Atrial fibrillation with rapid ventricular rate new onset -elevated d-dimer with no evidence of PE on CTA -Mild protein calorie malnutrition secondary to poor oral intake due to respiratory status deterioration -altered mental status possibly secondary to COVID-19 encephalopathy or possibly secondary to bilateral hemispheric stroke -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 [facility] following closely as patient is GIP with comfort measures only. Patient maintained on morphine drip at 6 mL per hour and [facility] following. Patient continues to be obtunded and unresponsive and not following any commands. Patient appears more comfortable with morphine drip. Prognosis remains extremely poor and guarded. We will monitor closely.
[2021-08-26] MEDS: MORPHINE SULFATE (100 MG/2 ML) 100 MG in SODIUM CHLORIDE 0.9% 100 ML IV SCH (17:27)
[2021-08-27] MEDS: MORPHINE SULFATE (100 MG/2 ML) 100 MG in SODIUM CHLORIDE 0.9% 100 ML IV SCH (07:44)
== END 2021-08-27 11:04 | disposition expired | DRG 951 ==
LOC: 4SSUR 13:52
PROVIDERS: ADMIT Internal Medicine; ATTEND Internal Medicine
DX: Z51.5 Encounter for palliative care (principal); U07.1 COVID-19; J12.82 Pneumonia due to coronavirus disease 2019; J96.01 Acute respiratory failure with hypoxia; G93.41 Metabolic encephalopathy; I63.513 Cerebral infarction due to unspecified occlusion or stenosis of bilateral middle cerebral arteries; E44.1 Mild protein-calorie malnutrition; E11.649 Type 2 diabetes mellitus with hypoglycemia without coma; E11.65 Type 2 diabetes mellitus with hyperglycemia; E78.5 Hyperlipidemia, unspecified; I10 Essential (primary) hypertension; I48.91 Unspecified atrial fibrillation; R13.10 Dysphagia, unspecified; Z93.1 Gastrostomy status; Z79.01 Long term (current) use of anticoagulants; Z86.73 Personal history of transient ischemic attack (TIA), and cerebral infarction without residual deficits; R79.89 Other specified abnormal findings of blood chemistry
CPT/HCPCS: 94760